=== PATIENT | male | born 1980 | race Caucasian/White ===

== ENCOUNTER 2020-03-01 15:24 | Emergency (ER) | payer SELFPAY ==
[2020-03-01 15:46] VITALS: BP 125/105; PULSE 102; RESP 18; TEMP 36.7; O2SAT 99; BMI 33.4
--- NOTE | 2020-03-01 16:04 | W.ED.ANXIETY ---
Documented by User: ISHAN Pendleton 03/01/20 17:35 HPI - Anxiety General: Chief Complaint: Anxiety Stated Complaint: anxiety Time Seen by Provider: 03/01/20 16:04 Source: patient Mode of arrival: ambulatory Limitations: no limitations History of Present Illness: HPI narrative: Patient comes in today with anxiety. Patient reports he usually takes clonazepam but he has been without it for 2 weeks since moving to the area. Patient appears well. Patient does report a history of coronary artery disease with 2 stents placed 3 years ago. Patient reports no significant chest pain. Patient reports that he had a episode of dizziness and then started shaking and feeling really anxious. Patient states that it is not uncommon for him to get anxious whenever he gets a little upset. Patient right now only takes aspirin and lisinopril with hydrochlorothiazide daily. MD complaint: anxiety Review of Systems General: Reports: 10 or more systems reviewed and unremarkable except in HPI and below Psych: Reports: anxiety [facility] ED PFSH: Social History Smoking and tobacco status: current every day smoker Physical Exam Const: COMMON NORMALS: no acute distress and patient oriented x3 GENERAL APPEARANCE: cooperative HENMT: COMMON NORMALS: normocephalic, TM's normal bilaterally and Normal external nose present HEAD & SCALP: normal to inspection and normocephalic NOSE: Normal external nose present TYMPANIC MEMBRANE: TM's normal bilaterally MOUTH: Normal oral and palatal mucosa present THROAT: posterior oropharynx normal Eye: GENERAL EYE: appearance normal, both eyes and all related structures Neck/C-Spine: COMMON NORMALS: full ROM Lymph: LYMPHATIC: no lymphadenopathy noted Chest: COMMONS NORMALS: normal inspection of the chest Resp: COMMON NORMALS: normal respiratory effort EFFORT & INSPECTION: Yes able to speak in complete sentences Cardio: COMMON NORMALS: regular rate and regular rhythm RATE: regular rate RHYTHM: regular rhythm GI: COMMON NORMALS: non-tender : COMMON NORMALS: Yes no CVA tenderness BLADDER/KIDNEY EXAM: Yes no CVA tenderness Back/Pelvis: COMMON NORMALS: no CVA tenderness and thoracic and lumbar spine normal to inspection Extremity: COMMON NORMALS: normal to inspection Neuro: COMMON NORMALS: patient oriented x3 and moves all extremities Psych: COMMON NORMALS: mental status grossly normal and cooperative Skin: COMMON NORMALS: no rashes or lesions noted GENERAL SKIN EXAM: no rashes or lesions noted Course ED course: 1709, reviewed with Demetrio Raya, physician assistant buyer, he agreed to assume care of patient on my leave. Awaiting labs. Expect patient to be released to home after labs for clearance of electrolyte disturbance or acute intoxication. wjw Vital Signs: Vital signs: Vital Signs Temperature 98.1 F 03/01/20 15:46 Pulse Rate 96 03/01/20 18:45 Respiratory Rate 18 03/01/20 18:45 Blood Pressure 114/60 03/01/20 18:45 Pulse Oximetry 98 03/01/20 18:45 MDM - Anxiety EKG Data^: EKG 1: Attestation: I personally reviewed and interpreted this EKG as follows: (1640, sinus rhythm at a rate of 90 bpm and regular, no ST elevation, no ectopy.) Interpretation: Chest X-Ray 03/01/20 17:45 IMPRESSION: No acute findings. Other EKG comments: Chest X-Ray 03/01/20 17:45 IMPRESSION: No acute findings. Lab Data: Labs: Lab Results 03/01/20 03/01/20 03/01/20 Range/Units 16:45 16:45 16:47 WBC 13.4 H (4.0-10.0) 10^3/ uL RBC 4.79 (4.1-5.3) 10^6/u L Hgb 15.4 (11.7-16.6) g/dL Hct 44.4 (42.0-52.0) % MCV 92.7 (80-94) fL MCH 32.2 (28.0-34.0) pg MCHC 34.7 (30.0-36.0) g/dL RDW 12.5 (12.1-15.1) % Plt Count 309 (130-400) 10^3/c mm MPV 8.1 (7.4-10.4) fL Neut % (Auto) 69.2 % Lymph % (Auto) 21.6 % [facility] % (Auto) 6.5 % Eos % (Auto) 1.3 % Baso % (Auto) 0.4 % Neut # (Auto) 9.3 H (1.8-7.7) 10^3/u L Lymph # (Auto) 2.9 (0.8-4.8) 10^3/u L [facility] # (Auto) 0.9 (0.2-0.9) 10^3/u L Eos # (Auto) 0.2 (0.0-0.8) 10^3/u L Baso # (Auto) 0.1 (0.0-0.1) 10^3/u L Nucleated RBC % (a uto) 0 % Nucleated RBCs # 0.0 /100WBC Sodium (136-145) mmol/L Potassium (3.5-5.1) mmol/L Chloride (98-107) mmol/L Carbon Dioxide (22-29) mmol/L Anion Gap (5-19) BUN (6-20) mg/dL Creatinine (0.7-1.2) mg/dL GFR Calculation (90-130) mL/min Glucose (65-115) mg/dL Calculated Osmolal ity (285-295) mOsm/k g Calcium (8.5-10.5) mg/dL Total Bilirubin (0.15-1.2) mg/dL AST (0-40) U/L ALT (0-41) U/L Alkaline Phosphata se (40-130) IU/L Total Protein (6.6-8.7) g/dL Albumin (3.5-5.2) g/dL Globulin (1.3-4.6) g/dL Urine Color Yellow (Yellow) Urine Appearance Clear (CLEAR) Urine pH 6 (5-7) Ur Specific Gravit y 1.010 (1.005-1.030) Urine Protein Neg (Negative) Urine Glucose (UA) Norm (Normal) Urine Ketones Negative (Negative) Urine Blood Neg (Negative) Urine Nitrate Negative (Negative) Urine Bilirubin Neg (NEGATIVE) Urine Urobilinogen Neg (Negative) mg/dL Ur Leukocyte Devi ase Negative (Negative) Urine Opiates Scre en Negative (Negative) ng/mL Ur Barbiturates Sc reen Negative (Negative) ng/mL Ur Phencyclidine S crn Negative (Negative) ng/mL Ur Amphetamines Sc reen Negative (Negative) ng/mL U Benzodiazepines Scrn Negative (Negative) ng/mL Urine Cocaine Scre en Negative (Negative) ng/mL U Marijuana (THC) Screen Negative (Negative) ng/mL Ethyl Alcohol (0-10) mg/dL 06/05/20 Range/Units 16:47 WBC (4.0-10.0) 10^3/ uL RBC (4.1-5.3) 10^6/u L Hgb (11.7-16.6) g/dL Hct (42.0-52.0) % MCV (80-94) fL MCH (28.0-34.0) pg MCHC (30.0-36.0) g/dL RDW (12.1-15.1) % Plt Count (130-400) 10^3/c mm MPV (7.4-10.4) fL Neut % (Auto) % Lymph % (Auto) % [facility] % (Auto) % Eos % (Auto) % Baso % (Auto) % Neut # (Auto) (1.8-7.7) 10^3/u L Lymph # (Auto) (0.8-4.8) 10^3/u L [facility] # (Auto) (0.2-0.9) 10^3/u L Eos # (Auto) (0.0-0.8) 10^3/u L Baso # (Auto) (0.0-0.1) 10^3/u L Nucleated RBC % (a uto) % Nucleated RBCs # /100WBC Sodium 133 L (136-145) mmol/L Potassium 3.9 (3.5-5.1) mmol/L Chloride 97 L (98-107) mmol/L Carbon Dioxide 20 L (22-29) mmol/L Anion Gap 19.9 H (5-19) BUN 15 (6-20) mg/dL Creatinine 0.9 (0.7-1.2) mg/dL GFR Calculation 93.0 (90-130) mL/min Glucose 102 (65-115) mg/dL Calculated Osmolal ity 272 L (285-295) mOsm/k g Calcium 9.7 (8.5-10.5) mg/dL Total Bilirubin 0.2 (0.15-1.2) mg/dL AST 25 (0-40) U/L ALT 40 (0-41) U/L Alkaline Phosphata se 64 (40-130) IU/L Total Protein 6.9 (6.6-8.7) g/dL Albumin 4.9 (3.5-5.2) g/dL Globulin 2.0 (1.3-4.6) g/dL Urine Color (Yellow) Urine Appearance (CLEAR) Urine pH (5-7) Ur Specific Gravit y (1.005-1.030) Urine Protein (Negative) Urine Glucose (UA) (Normal) Urine Ketones (Negative) Urine Blood (Negative) Urine Nitrate (Negative) Urine Bilirubin (NEGATIVE) Urine Urobilinogen (Negative) mg/dL Ur Leukocyte Devi ase (Negative) Urine Opiates Scre en (Negative) ng/mL Ur Barbiturates Sc reen (Negative) ng/mL Ur Phencyclidine S crn (Negative) ng/mL Ur Amphetamines Sc reen (Negative) ng/mL U Benzodiazepines Scrn (Negative) ng/mL Urine Cocaine Scre en (Negative) ng/mL U Marijuana (THC) Screen (Negative) ng/mL Ethyl Alcohol < 10 (0-10) mg/dL Discharge Plan Discharge Patient Disposition: Home, Self-Care Clinical Impression: Acute anxiety Condition: Stable Prescriptions: No Action lisinopril-hydrochlorothiazide 20-25 mg Tablet 1 tab PO DAILY RF: 0 Aspir-81 81 mg Tablet,Delayed Release (Dr/Ec) 81 mg PO DAILY RF: 0 Discharge Orders: Discharge Order (Routine); Ordered 03/01/20 Ordered By: Demetrio Raya Discharge Diet: Regular Discharge Activity: Resume usual activity Patient Instructions: Anxiety (ED) Activity Restrictions/Additional Instructions: I placed behavioral health referral order with case management. Someone should be calling you in the next several days to set up an appointment with behavioral health clinic. Take prescribed lorazepam as needed for any acute anxiety attacks. Discharge Date/Time: 03/01/20 18:45 Sign Out Sign Out Data: Patient Sign Out occurred on 03/01/20 at 17:39. Patient's care was discussed, and care was transferred from Gumaro Garduno to ADARSH Garcia. Sign Out Comment: awaiting labs, expect to go home if labs normal. wjw Last updated by Gumaro Garduno FNP at 03/01/20 17:34 Coding Level of Care Code ED Silk Examiner for Chg Fwd Exam Comprehensive Documented by User: ADARSH Garcia 03/01/20 19:52 HPI - Anxiety General: Chief Complaint: Anxiety Stated Complaint: anxiety Time Seen by Provider: 03/01/20 16:04 PFS ED PFSH: Social History Smoking and tobacco status: current every day smoker Course Vital Signs: Vital signs: Vital Signs Temperature 98.1 F 03/01/20 15:46 Pulse Rate 96 03/01/20 18:45 Respiratory Rate 18 03/01/20 18:45 Blood Pressure 114/60 03/01/20 18:45 Pulse Oximetry 98 03/01/20 18:45 MDM - Anxiety MDM Narrative: Medical decision making narrative: Patient is a 40-year-old male who comes into the ED with acute anxiety. Patient says that he recently moved here from [place] and has not established any care with a PCP or behavioral health doctor. Patient states that he was taking Clozapine but has run out of meds. I placed an order with case management for patient to be referred to behavioral health clinic. Patient is in no signs of respiratory distress and does not complain of any chest pain. Physical exam was normal. White blood cell count of 13, alcohol was negative EKG showed normal sinus rhythm with no ST segment elevation or depression. Chest x-ray showed no acute findings. Patient was discharged and given a prescription for lorazepam to treat his anxiety. I told patient that behavioral health clinic should be contacting him in the next several days to set up an appointment to establish care. Patient understood and agreed with plan. Imaging Data^: CXR: Attestation: I personally reviewed and interpreted this imaging study as follows: Radiologist's impression: [address] [address] XRay Report Signed Patient: Rudy Crawford Unit #: [id number] : 1980 Age/Sex: 40 / M ADM Date: 03/01/20 Loc: ER Room/Bed: Attending Dr: Ordering Provider/Ordering MD: Demetrio Raya Date of Service: 03/01/20 Procedure(s): XR chest 1V portable [id number] Accession Number(s): [id number] Report Number: [id number] PROCEDURE INFORMATION: Exam: XR Chest, 1 View Exam date and time: 03/01/2020 6:18 PM Age: 40 years old Clinical indication: Other: Anxiety TECHNIQUE: Imaging protocol: XR of the chest Views: 1 view. COMPARISON: No relevant prior studies available. FINDINGS: Lungs: Unremarkable. No consolidation. Pleural space: Unremarkable. No pleural effusion. No pneumothorax. Heart/Mediastinum: Unremarkable. No cardiomegaly. Bones/joints: No acute abnormality. XR/XR chest 1V portable [id number] IMPRESSION: No acute findings. Dictated By: Maricel Chan Signed By: Maricel Chan Signed Date/Time: 03/01/201824 DD/ 23 EKG Data^: EKG 1: Interpretation: Chest X-Ray 03/01/20 17:45 IMPRESSION: No acute findings. Other EKG comments: Chest X-Ray 03/01/20 17:45 IMPRESSION: No acute findings. Lab Data: Attestation: I reviewed the patient's lab results. Labs: Lab Results 03/01/20 03/01/20 03/01/20 Range/Units 16:45 16:45 16:47 WBC 13.4 H (4.0-10.0) 10^3/ uL RBC 4.79 (4.1-5.3) 10^6/u L Hgb 15.4 (11.7-16.6) g/dL Hct 44.4 (42.0-52.0) % MCV 92.7 (80-94) fL MCH 32.2 (28.0-34.0) pg MCHC 34.7 (30.0-36.0) g/dL RDW 12.5 (12.1-15.1) % Plt Count 309 (130-400) 10^3/c mm MPV 8.1 (7.4-10.4) fL Neut % (Auto) 69.2 % Lymph % (Auto) 21.6 % [facility] % (Auto) 6.5 % Eos % (Auto) 1.3 % Baso % (Auto) 0.4 % Neut # (Auto) 9.3 H (1.8-7.7) 10^3/u L Lymph # (Auto) 2.9 (0.8-4.8) 10^3/u L [facility] # (Auto) 0.9 (0.2-0.9) 10^3/u L Eos # (Auto) 0.2 (0.0-0.8) 10^3/u L Baso # (Auto) 0.1 (0.0-0.1) 10^3/u L Nucleated RBC % (a uto) 0 % Nucleated RBCs # 0.0 /100WBC Sodium (136-145) mmol/L Potassium (3.5-5.1) mmol/L Chloride (98-107) mmol/L Carbon Dioxide (22-29) mmol/L Anion Gap (5-19) BUN (6-20) mg/dL Creatinine (0.7-1.2) mg/dL GFR Calculation (90-130) mL/min Glucose (65-115) mg/dL Calculated Osmolal ity (285-295) mOsm/k g Calcium (8.5-10.5) mg/dL Total Bilirubin (0.15-1.2) mg/dL AST (0-40) U/L ALT (0-41) U/L Alkaline Phosphata se (40-130) IU/L Total Protein (6.6-8.7) g/dL Albumin (3.5-5.2) g/dL Globulin (1.3-4.6) g/dL Urine Color Yellow (Yellow) Urine Appearance Clear (CLEAR) Urine pH 6 (5-7) Ur Specific Gravit y 1.010 (1.005-1.030) Urine Protein Neg (Negative) Urine Glucose (UA) Norm (Normal) Urine Ketones Negative (Negative) Urine Blood Neg (Negative) Urine Nitrate Negative (Negative) Urine Bilirubin Neg (NEGATIVE) Urine Urobilinogen Neg (Negative) mg/dL Ur Leukocyte Devi ase Negative (Negative) Urine Opiates Scre en Negative (Negative) ng/mL Ur Barbiturates Sc reen Negative (Negative) ng/mL Ur Phencyclidine S crn Negative (Negative) ng/mL Ur Amphetamines Sc reen Negative (Negative) ng/mL U Benzodiazepines Scrn Negative (Negative) ng/mL Urine Cocaine Scre en Negative (Negative) ng/mL U Marijuana (THC) Screen Negative (Negative) ng/mL Ethyl Alcohol (0-10) mg/dL 03/01/20 Range/Units 16:47 WBC (4.0-10.0) 10^3/ uL RBC (4.1-5.3) 10^6/u L Hgb (11.7-16.6) g/dL Hct (42.0-52.0) % MCV (80-94) fL MCH (28.0-34.0) pg MCHC (30.0-36.0) g/dL RDW (12.1-15.1) % Plt Count (130-400) 10^3/c mm MPV (7.4-10.4) fL Neut % (Auto) % Lymph % (Auto) % [facility] % (Auto) % Eos % (Auto) % Baso % (Auto) % Neut # (Auto) (1.8-7.7) 10^3/u L Lymph # (Auto) (0.8-4.8) 10^3/u L [facility] # (Auto) (0.2-0.9) 10^3/u L Eos # (Auto) (0.0-0.8) 10^3/u L Baso # (Auto) (0.0-0.1) 10^3/u L Nucleated RBC % (a uto) % Nucleated RBCs # /100WBC Sodium 133 L (136-145) mmol/L Potassium 3.9 (3.5-5.1) mmol/L Chloride 97 L (98-107) mmol/L Carbon Dioxide 20 L (22-29) mmol/L Anion Gap 19.9 H (5-19) BUN 15 (6-20) mg/dL Creatinine 0.9 (0.7-1.2) mg/dL GFR Calculation 93.0 (90-130) mL/min Glucose 102 (65-115) mg/dL Calculated Osmolal ity 272 L (285-295) mOsm/k g Calcium 9.7 (8.5-10.5) mg/dL Total Bilirubin 0.2 (0.15-1.2) mg/dL AST 25 (0-40) U/L ALT 40 (0-41) U/L Alkaline Phosphata se 64 (40-130) IU/L Total Protein 6.9 (6.6-8.7) g/dL Albumin 4.9 (3.5-5.2) g/dL Globulin 2.0 (1.3-4.6) g/dL Urine Color (Yellow) Urine Appearance (CLEAR) Urine pH (5-7) Ur Specific Gravit y (1.005-1.030) Urine Protein (Negative) Urine Glucose (UA) (Normal) Urine Ketones (Negative) Urine Blood (Negative) Urine Nitrate (Negative) Urine Bilirubin (NEGATIVE) Urine Urobilinogen (Negative) mg/dL Ur Leukocyte Devi ase (Negative) Urine Opiates Scre en (Negative) ng/mL Ur Barbiturates Sc reen (Negative) ng/mL Ur Phencyclidine S crn (Negative) ng/mL Ur Amphetamines Sc reen (Negative) ng/mL U Benzodiazepines Scrn (Negative) ng/mL Urine Cocaine Scre en (Negative) ng/mL U Marijuana (THC) Screen (Negative) ng/mL Ethyl Alcohol < 10 (0-10) mg/dL Discharge Plan Discharge Patient Disposition: Home, Self-Care Clinical Impression: Acute anxiety Condition: Stable Prescriptions: No Action lisinopril-hydrochlorothiazide 20-25 mg Tablet 1 tab PO DAILY RF: 0 Aspir-81 81 mg Tablet,Delayed Release (Dr/Ec) 81 mg PO DAILY RF: 0 Discharge Orders: Discharge Order (Routine); Ordered 03/01/20 Ordered By: Demetrio Raya Discharge Diet: Regular Discharge Activity: Resume usual activity Patient Instructions: Anxiety (ED) Activity Restrictions/Additional Instructions: I placed behavioral health referral order with case management. Someone should be calling you in the next several days to set up an appointment with behavioral health clinic. Take prescribed lorazepam as needed for any acute anxiety attacks. Discharge Date/Time: 03/01/20 18:45 Sign Out Sign Out Data: Patient Sign Out occurred on 03/01/20 at 17:39. Patient's care was discussed, and care was transferred from Gumaro Garduno to ADARSH Garcia. Sign Out Comment: awaiting labs, expect to go home if labs normal. wjw Last updated by Gumaro Garduno FNP at 03/01/20 17:34 Coding Level of Care Code ED Silk Examiner for g Fwd Exam Comprehensive
--- NOTE | 2020-03-01 16:10 | ECG_ITS ---
Measurements Intervals [place] Rate: 90 P: 37 WI: 153 QRS: 45 QRSD: 129 T: 55 QT: 382 QTc: 469 SINUS RHYTHM POSSIBLE RIGHT VENTRICULAR CONDUCTION DELAY [RSR (QR) IN V1/V2] No previous ECG available for comparison Electronically Signed On 03-02-2020 8:05:33 CDT by Shannan Mendoza M.D. [id number]
[2020-03-01 16:13] VITALS: O2SAT 98
[2020-03-01] MEDS: LORazepam 1 mg Tablet 0.5 MG PO (16:34)
[2020-03-01 16:36] VITALS: BP 146/89; PULSE 108; O2SAT 97
[2020-03-01 16:56] LABS: Basophils # 0.1 10^3/uL (0.0-0.1); Basophils % 0.4 %; Eosinophils # 0.2 10^3/uL (0.0-0.8); Eosinophils % 1.3 %; Hematocrit 44.4 % (42.0-52.0); Hemoglobin 15.4 g/dL (11.7-16.6); Lymphocytes # 2.9 10^3/uL (0.8-4.8); Lymphocytes % 21.6 %; Mean Corpuscular HGB Conc 34.7 g/dL (30.0-36.0); Mean Corpuscular Hemoglobin 32.2 pg (28.0-34.0); Mean Corpuscular Volume 92.7 fL (80-94); Mean Platelet Volume 8.1 fL (7.4-10.4); Monocytes # 0.9 10^3/uL (0.2-0.9); Monocytes % 6.5 %; Neutrophils # 9.3 10^3/uL (1.8-7.7); Neutrophils % 69.2 %; Nucleated Red Blood Cells % 0 %; Platelet Count 309 10^3/cmm (130-400); Red Blood Count 4.79 10^6/uL (4.1-5.3); Red Cell Distribution Width 12.5 % (12.1-15.1); White Blood Count 13.4 10^3/uL (4.0-10.0)
[2020-03-01 17:16] LABS: Add Urine Microscopic? NO
[2020-03-01 17:18] LABS: Urine Appearance Clear (CLEAR); Urine Color Yellow (Yellow)
[2020-03-01 17:19] LABS: Bilirubin Urine Neg (NEGATIVE); Blood Urine Neg (Negative); Glucose Urine UA Norm (Normal); Ketones Urine Negative (Negative); Leukocyte Esterase Urine Negative (Negative); Nitrate Urine Negative (Negative); Protein Urine Neg (Negative); Urobilinogen Urine Neg (Negative); pH Urine 6 (5-7)
[2020-03-01 17:28] LABS: Amphetamines Screen Urine Negative (Negative); Barbiturates Screen Urine Negative (Negative); Benzodiazepines Screen Urine Negative (Negative); Cocaine Screen Urine Negative (Negative); Opiate Screen Urine Negative (Negative); PCP Screen Urine Negative (Negative); THC Screen Urine Negative (Negative)
--- NOTE | 2020-03-01 17:40 | ED_ITS ---
HPI - Anxiety General: Chief Complaint: Anxiety Stated Complaint: anxiety Time Seen by Provider: 03/01/20 16:04 Source: patient Mode of arrival: ambulatory History of Present Illness: HPI narrative: Per Ulices Garduno Nurse Practitioner-- Patient comes in today with anxiety. Patient reports he usually takes clonazepam but he has been without it for 2 weeks since moving to the area. Patient appears well. Patient does report a history of coronary artery disease with 2 stents placed 3 years ago. Patient reports no significant chest pain. Patient reports that he had a episode of dizziness and then started shaking and feeling really anxious. Patient states that it is not uncommon for him to get anxious whenever he gets a little upset. Patient right now only takes aspirin and lisinopril with hydrochlorothiazide daily. MD complaint: anxiety Associated symptoms: Deny chest pain, chills, fever(s), headache(s), nausea, palpitations or vomiting Review of Systems Const: Denies: fever(s), chills or fatigue Eyes: Denies: change in vision or eye discomfort ENMT: Denies: throat pain, odynophagia, nasal discharge or nasal congestion Card: Denies: chest pain, palpitations, edema, swelling of feet/ankles, dyspnea on exertion or orthopnea Resp: Denies: dyspnea, productive cough or non-productive cough GI: Denies: abdominal pain, nausea, vomiting, diarrhea, constipation or hematochezia : Denies: flank pain, difficulty urinating, dysuria or hematuria Musc: Denies: neck pain, back pain or extremity swelling Skin/Breast: Denies: rash or new lesions Neuro: Denies: headache(s), numbness in extremities or weakness in extremities Psych: Reports: anxiety PFSH ED PFSH: Social History Smoking and tobacco status: current every day smoker Physical Exam Const: COMMON NORMALS: patient oriented x3 HENMT: COMMON NORMALS: normocephalic HEAD & SCALP: normocephalic MOUTH: Normal oral and palatal mucosa present THROAT: posterior oropharynx normal and uvula midline Neck/C-Spine: COMMON NORMALS: supple GENERAL: Yes normal visual inspection Resp: COMMON NORMALS: normal respiratory effort, No retractions, No use of accessory muscles and clear to auscultation bilaterally AUSCULTATION: clear to auscultation bilaterally Cardio: COMMON NORMALS: regular rate, regular rhythm, S1 normal heart sound present, S2 normal heart sound present, No gallops present (Cardio), No clicks present (Cardio), No murmurs present (Cardio) and Peripheral pulses 2+ throughout RATE: regular rate RHYTHM: regular rhythm HEART SOUNDS: S1 normal heart sound present and S2 normal heart sound present PERIPHERAL PULSES: Peripheral pulses 2+ throughout GI: COMMON NORMALS: Normal to inspection, nondistended, normoactive bowel sounds present, Soft to palpation, non-tender and no masses PALPATION: Yes Soft to palpation : COMMON NORMALS: Yes no CVA tenderness BLADDER/KIDNEY EXAM: Yes no CVA tenderness Back/Pelvis: COMMON NORMALS: no CVA tenderness Neuro: COMMON NORMALS: patient oriented x3 and moves all extremities Course Vital Signs: Vital signs: Vital Signs Temperature 98.1 F 03/01/20 15:46 Pulse Rate 108 H 03/01/20 16:36 Respiratory Rate 18 03/01/20 15:46 Blood Pressure 146/89 03/01/20 16:36 Pulse Oximetry 97 03/01/20 16:36 MDM - Anxiety Lab Data: Attestation: I reviewed the patient's lab results. Labs: Lab Results 03/01/20 03/01/20 03/01/20 Range/Units 16:45 16:45 16:47 WBC 13.4 H (4.0-10.0) 10^3/ uL RBC 4.79 (4.1-5.3) 10^6/u L Hgb 15.4 (11.7-16.6) g/dL Hct 44.4 (42.0-52.0) % MCV 92.7 (80-94) fL MCH 32.2 (28.0-34.0) pg MCHC 34.7 (30.0-36.0) g/dL RDW 12.5 (12.1-15.1) % Plt Count 309 (130-400) 10^3/c mm MPV 8.1 (7.4-10.4) fL Neut % (Auto) 69.2 % Lymph % (Auto) 21.6 % [place] % (Auto) 6.5 % Eos % (Auto) 1.3 % Baso % (Auto) 0.4 % Neut # (Auto) 9.3 H (1.8-7.7) 10^3/u L Lymph # (Auto) 2.9 (0.8-4.8) 10^3/u L [place] # (Auto) 0.9 (0.2-0.9) 10^3/u L Eos # (Auto) 0.2 (0.0-0.8) 10^3/u L Baso # (Auto) 0.1 (0.0-0.1) 10^3/u L Nucleated RBC % (a uto) 0 % Nucleated RBCs # 0.0 /100WBC Urine Color Yellow (Yellow) Urine Appearance Clear (CLEAR) Urine pH 6 (5-7) Ur Specific Gravit y 1.010 (1.005-1.030) Urine Protein Neg (Negative) Urine Glucose (UA) Norm (Normal) Urine Ketones Negative (Negative) Urine Blood Neg (Negative) Urine Nitrate Negative (Negative) Urine Bilirubin Neg (NEGATIVE) Urine Urobilinogen Neg (Negative) mg/dL Ur Leukocyte Devi ase Negative (Negative) Urine Opiates Scre en Negative (Negative) ng/mL Ur Barbiturates Sc reen Negative (Negative) ng/mL Ur Phencyclidine S crn Negative (Negative) ng/mL Ur Amphetamines Sc reen Negative (Negative) ng/mL U Benzodiazepines Scrn Negative (Negative) ng/mL Urine Cocaine Scre en Negative (Negative) ng/mL U Marijuana (THC) Screen Negative (Negative) ng/mL Discharge Plan Discharge Prescriptions: No Action lisinopril-hydrochlorothiazide 20-25 mg Tablet 1 tab PO DAILY RF: 0 Aspir-81 81 mg Tablet,Delayed Release (Dr/Ec) 81 mg PO DAILY RF: 0 Sign Out Sign Out Data: Patient Sign Out occurred on 03/01/20 at 17:39. Patient's care was discussed, and care was transferred from Gumaro Garduno to ADARSH Garcia. Sign Out Comment: awaiting labs, expect to go home if labs normal. wjw Last updated by Gumaro Garduno FNP at 03/01/20 17:34 Coding Level of Care Code ED Projects Manager for Adam Adair
--- NOTE | 2020-03-01 17:45 | XRR_ITS ---
PROCEDURE INFORMATION: Exam: XR Chest, 1 View Exam date and time: 03/01/2020 6:18 PM Age: 40 years old Clinical indication: Other: Anxiety TECHNIQUE: Imaging protocol: XR of the chest Views: 1 view. COMPARISON: No relevant prior studies available. FINDINGS: Lungs: Unremarkable. No consolidation. Pleural space: Unremarkable. No pleural effusion. No pneumothorax. Heart/Mediastinum: Unremarkable. No cardiomegaly. Bones/joints: No acute abnormality. XR/XR chest 1V portable [id number] IMPRESSION: No acute findings.
[2020-03-01 18:34] LABS: Alanine Aminotransferase 40 U/L (0-41); Albumin Level 4.9 g/dL (3.5-5.2); Alkaline Phosphatase 64 IU/L (40-130); Anion Gap 19.9 (5-19); Aspartate Amino Transferase 25 U/L (0-40); Blood Urea Nitrogen 15 mg/dL (6-20); Calcium 9.7 mg/dL (8.5-10.5); Carbon Dioxide 20 mmol/L (22-29); Chloride 97 mmol/L (98-107); Glucose 102 mg/dL (65-115); Osmolality Calculated 272 mOsm/kg (285-295); Potassium 3.9 mmol/L (3.5-5.1); Sodium 133 mmol/L (136-145); Total Bilirubin 0.2 mg/dL (0.15-1.2); Total Protein 6.9 g/dL (6.6-8.7)
[2020-03-01 18:38] VITALS: BP 114/60; PULSE 99; O2SAT 98
[2020-03-01 18:45] VITALS: BP 114/60; PULSE 96; RESP 18; O2SAT 98
[2020-03-01 18:59] LABS: Alcohol Level < 10 mg/dL (0-10)
--- NOTE | 2020-03-04 11:12 | DCPLANNER ---
email campaign manager had message to speak with patient about a referral to [facility]. email campaign manager called patient at phone number [phone], unable to speak with patient at this time due to phone having calling restrictions. email campaign manager was unable to speak with patient or leave a voice mail for patient.
== END 2020-03-01 18:45 | disposition home or self-care (01) ==
PROVIDERS: Nurse Practitioner Family; Emergency Provider Physician Assistant
DX: F41.9 Anxiety disorder, unspecified (principal); Z79.82 Long term (current) use of aspirin; F17.210 Nicotine dependence, cigarettes, uncomplicated
CPT/HCPCS: 12345; 71045; 80053; 80306; 80307; 81003; 85025; 93005; 99283

== ENCOUNTER 2021-09-05 10:07 | Emergency (ER) | payer MEDICAID, SELFPAY ==
[2021-09-05 10:14] VITALS: BP 177/117; PULSE 90; RESP 20; TEMP 36.5; O2SAT 99; BMI 33.4
--- NOTE | 2021-09-05 10:18 | XR_ITS ---
WS: [id number] PORTABLE CHEST HISTORY: CHEST PAIN COMPARISON: 03/01/2020 Lungs are clear and well expanded. No pleural effusion or pneumothorax. Cardiac size: Normal. Mediastinum/Aorta: Normal mediastinum. No osseous abnormality seen. XR/XR chest 1V portable [id number] IMPRESSION: Unremarkable portable chest.
--- NOTE | 2021-09-05 10:18 | ECG_ITS ---
[facility] Test Date: 2021-09-05 Pat Name: Rudy Crawford Department: Room: Gender: Male Bilingual Interpreter: : 1980 Requested By: Florentin Salinas Order Number: [id number] Erika MD: Michael Cabrera M.D. Measurements Intervals [place] Rate: 84 P: 12 AL: 170 QRS: 51 QRSD: 107 T: 60 QT: 391 QTc: 463 Interpretive Statements SINUS RHYTHM Compared to ECG 03/01/2020 16:40:52 No significant changes Electronically Signed On 09-06-2021 7:38:14 CIVIL CLERK by Michael Cabrera M.D. [id number]
[2021-09-05 10:28] LABS: Basophils % 0.6 %; Eosinophils # 0.1 10^3/uL (0.0-0.8); Eosinophils % 1.7 %; Hematocrit 49.8 % (42.0-52.0); Hemoglobin 17.2 g/dL (11.7-16.6); Lymphocytes # 2.4 10^3/uL (0.8-4.8); Lymphocytes % 51.1 %; Mean Corpuscular HGB Conc 34.5 g/dL (30.0-36.0); Mean Corpuscular Hemoglobin 31.7 pg (28.0-34.0); Mean Corpuscular Volume 91.7 fl (80-94); Mean Platelet Volume 8.3 fL (7.4-10.4); Monocytes # 0.6 10^3/uL (0.2-0.9); Monocytes % 11.6 %; Neutrophils # 1.63 10^3/uL (1.8-7.7); Neutrophils % 34.4 %; Nucleated Red Blood Cells % 0 %; Platelet Count 250 10^3/cmm (130-400); Red Blood Count 5.43 10^6/uL (4.1-5.3); Red Cell Distribution Width 12.6 % (12.1-15.1); White Blood Count 4.7 10^3/uL (4.0-10.0)
[2021-09-05 11:02] LABS: Troponin(5th) Baseline 7 ng/L (0-15)
--- NOTE | 2021-09-05 11:13 | ED_ITS ---
HPI - Chest Pain General: Chief Complaint: Chest Pain Stated Complaint: CP Time Seen by Provider: 09/05/21 10:35 History of Present Illness: HPI narrative: 41 yo male presents to the emergency room complaining of left-sided chest pain going into his left shoulder he states he has had this for several weeks. He also related to anxiety previous shoulder injury condition that has been off his blood pressure medicines for the last several weeks to. Is worse when he moves or palpates shoulder can reproduce the pain is not had any associated diaphoresis or nausea. MD complaint: chest pain Pertinent past history: other (L rotator cuff injury) Onset (ago): week(s) Timing of current episode: episodic Onset: during rest Pain radiation: left shoulder Severity: moderate Quality: sharp Relieving factors: rest Exacerbating factors: palpation and movement (L shoulder) Associated symptoms: Reports sense of impending doom; Deny abdominal pain, diaphoresis, dyspnea, fever(s), leg edema, nausea, palpitations, syncope or vomiting Treatment prior to arrival: none Review of Systems Const: Denies: fever(s) or diaphoresis ENMT: Denies: throat pain, ear or mastoid pain, nasal discharge or nasal congestion Card: Denies: palpitations or syncope Resp: Denies: dyspnea GI: Denies: abdominal pain, nausea or vomiting : Denies: flank pain, dysuria, urinary frequency or urinary urgency Skin/Breast: Denies: rash or pruritus PFSH ED PFSH: Social History Smoking and tobacco status: current every day smoker Physical Exam Const: COMMON NORMALS: no acute distress GENERAL APPEARANCE: cooperative and comfortable ORIENTATION/CONSCIOUSNESS: Yes awake, Yes oriented to person, Yes oriented to place and Yes oriented to time HENMT: COMMON NORMALS: normocephalic, atraumatic and hearing grossly normal bilaterally HEAD & SCALP: normocephalic and atraumatic Neck/C-Spine: COMMON NORMALS: no JVD Resp: COMMON NORMALS: normal respiratory effort, No retractions, No use of accessory muscles and clear to auscultation bilaterally AUSCULTATION: clear to auscultation bilaterally Cardio: COMMON NORMALS: no JVD, regular rate, regular rhythm and No murmurs present (Cardio) RATE: regular rate RHYTHM: regular rhythm GI: COMMON NORMALS: Soft to palpation and No hepatosplenomegaly present AUSCULTATION: Yes normoactive bowel sounds PALPATION: Yes Soft to palpation, No Tenderness to palpation present (GI), No Guarding due to palpation present (GI) and Yes No hepatosplenomegaly present Extremity: COMMON NORMALS: normal to inspection, capillary refill normal, no clubbing, cyanosis or edema, no calf tenderness and no pedal edema NARRATIVE EXTREMITY EXAM: Pain reproducible with abduction and extension of the left shoulder even palpation over the AC joint seems to worsen the pain there is no deformity no ecchymosis. Neurovascularly intact in the left upper extremity Neuro: SENSORIUM/ORIENTATION: Yes oriented to person, Yes oriented to place and Yes oriented to time Skin: COMMON NORMALS: no rashes or lesions noted GENERAL SKIN EXAM: no rashes or lesions noted Course Vital Signs: Vital signs: Vital Signs Temperature 97.7 F 09/05/21 10:14 Pulse Rate 91 09/05/21 13:48 Respiratory Rate 16 09/05/21 13:48 Blood Pressure 156/114 09/05/21 13:48 Pulse Oximetry 98 09/05/21 13:48 MDM - Chest Pain MDM Narrative: Medical decision making narrative: Chest pain is definitely atypical seems more related to the shoulder itself. No recent trauma to the shoulder but I do suspect he has some left rotator cuff disorder. Organic start him on hydroxyzine for anxiety and diclofenac encourage him to restart his blood pressure medication. We will also get arrangements for an outpatient MRI stress test and referral to orthopedics and referral to primary care. Lab Data: Labs: Lab Results 09/05/21 09/05/21 09/05/21 10:23 10:23 10:23 WBC 4.7 10^3/uL 10^3/ uL (4.0-10.0) RBC 5.43 10^6/uL H 10 ^6/uL (4.1-5.3) Hgb 17.2 g/dL H g/dL (11.7-16.6) Hct 49.8 % % (42.0-52.0) MCV 91.7 fl fl (80-94) MCH 31.7 pg pg (28.0-34.0) MCHC 34.5 g/dL g/dL (30.0-36.0) RDW 12.6 % % (12.1-15.1) Plt Count 250 10^3/cmm 10^3 /cmm (130-400) MPV 8.3 fL fL (7.4-10.4) Neut % (Auto) 34.4 % % Lymph % (Auto) 51.1 % % [place] % (Auto) 11.6 % % Eos % (Auto) 1.7 % % Baso % (Auto) 0.6 % % Neut # (Auto) 1.63 10^3/uL L 10 ^3/uL (1.8-7.7) Lymph # (Auto) 2.4 10^3/uL 10^3/ uL (0.8-4.8) [place] # (Auto) 0.6 10^3/uL 10^3/ uL (0.2-0.9) Eos # (Auto) 0.1 10^3/uL 10^3/ uL (0.0-0.8) Baso # (Auto) 0.0 10^3/uL 10^3/ uL (0.0-0.1) Nucleated RBC % (a uto) 0 % % Nucleated RBCs # 0.0 /100WBC /100W BC Sodium 136 mmol/L mmol/L (136-145) Potassium 3.8 mmol/L mmol/L (3.5-5.1) Chloride 101 mmol/L mmol/L (98-107) Carbon Dioxide 19 mmol/L L mmol/ L (22-29) Anion Gap 19.8 H (5-19) BUN 12 mg/dL mg/dL (6-20) Creatinine 0.7 mg/dL mg/dL (0.7-1.2) GFR Calculation 123.7 mL/min mL/m in (90-130) Glucose 86 mg/dL mg/dL (65-115) Calculated Osmolal ity 281 mOsm/kg L mOs m/kg (285-295) Calcium 8.7 mg/dL mg/dL (8.5-10.5) Total Bilirubin 0.5 mg/dL mg/dL (0.15-1.2) AST 25 U/L U/L (0-40) ALT 43 U/L H U/L (0-41) Alkaline Phosphata se 67 IU/L IU/L (40-130) Troponin T Baselin e 7 ng/L ng/L (0-15) Troponin T 120 Min [place] Troponin T Total Protein 7.4 g/dL g/dL (6.6-8.7) Albumin 4.5 g/dL g/dL (3.5-5.2) Globulin 2.9 g/dL g/dL (1.3-4.6) 09/05/21 12:40 WBC RBC Hgb Hct MCV MCH MCHC RDW Plt Count MPV Neut % (Auto) Lymph % (Auto) [place] % (Auto) Eos % (Auto) Baso % (Auto) Neut # (Auto) Lymph # (Auto) [place] # (Auto) Eos # (Auto) Baso # (Auto) Nucleated RBC % (a uto) Nucleated RBCs # Sodium Potassium Chloride Carbon Dioxide Anion Gap BUN Creatinine GFR Calculation Glucose Calculated Osmolal ity Calcium Total Bilirubin AST ALT Alkaline Phosphata se Troponin T Baselin e Troponin T 120 Min [place] 7.16 ng/L ng/L (0-15) Delta Troponin T 0.16 ABS# ABS# (0-10) Total Protein Albumin Globulin Discharge Plan Discharge Patient Disposition: Home Clinical Impression: Atypical chest pain, Disorder of left rotator cuff, Anxiety Condition: Stable Prescriptions: New hydroxyzine HCl 25 mg tablet 25 mg PO Q6H PRN (Reason: anxiety) Qty: 14 RF: 0 diclofenac sodium 75 mg tablet,delayed release (DR/EC) 75 mg PO Q12H PRN (Reason: pain) Qty: 20 RF: 0 No Action lisinopril-hydrochlorothiazide 20-25 mg Tablet 1 tab PO DAILY MDD see pharmacy comment RF: 0 aspirin [Aspir-81] 81 mg Tablet,Delayed Release (Dr/Ec) 81 mg PO DAILY MDD see pharmacy comment RF: 0 Discharge Orders: Discharge ED (Routine); Ordered 09/05/21 Ordered By: Anil Senior Discharge Diet: Usual diet Discharge Activity: Limit activity as instructed Patient Instructions: Opioid Safety Activity Restrictions/Additional Instructions: Case management will make arrangments for a stress test, MRI of your shoulder and referal to orthopaedics. THey will also make arranglemtnst for a primary care physician. Coding Level of Care Code ED Aerial Tram Operator for Adam Fwd Exam Comprehensive
[2021-09-05 11:38] LABS: Alanine Aminotransferase 43 U/L (0-41); Albumin Level 4.5 g/dL (3.5-5.2); Alkaline Phosphatase 67 IU/L (40-130); Anion Gap 19.8 (5-19); Aspartate Amino Transferase 25 U/L (0-40); Blood Urea Nitrogen 12 mg/dL (6-20); Calcium 8.7 mg/dL (8.5-10.5); Carbon Dioxide 19 mmol/L (22-29); Chloride 101 mmol/L (98-107); Globulin 2.9 g/dL (1.3-4.6); Glomerular Filtration Rate 123.7 mL/min (90-130); Glucose 86 mg/dL (65-115); Osmolality Calculated 281 mOsm/kg (285-295); Potassium 3.8 mmol/L (3.5-5.1); Sodium 136 mmol/L (136-145); Total Bilirubin 0.5 mg/dL (0.15-1.2); Total Protein 7.4 g/dL (6.6-8.7)
[2021-09-05] MEDS: LORazepam 2 mg Tablet PO (11:57)
[2021-09-05 11:58] VITALS: BP 176/134; PULSE 87; RESP 18; O2SAT 99
[2021-09-05] MEDS: lisinopril 10 mg Tablet 20 MG PO (12:59)
[2021-09-05 13:19] LABS: Troponin 5 2HR 7.16 ng/L (0-15); Troponin 5 2HR Delta 0.16 ABS# (0-10)
[2021-09-05 13:48] VITALS: BP 156/114; PULSE 91; RESP 16; O2SAT 98
--- NOTE | 2021-09-08 12:09 | DCPLANNER ---
copy manager had message to schedule a follow up appointment for patient with ortho. copy manager called the ortho clinic, spoke with Mitra, gave clinic patients information. copy manager was told that patients information would be printed and reviewed. Clinic will call patient with appointment information.
--- NOTE | 2021-09-08 15:11 | DCPLANNER ---
cyber security manager had message to schedule an out patient stress test, and an outpatient MRI and a follow up appointment with ortho after the MRI. cyber security manager called phone number [phone], unable to speak with patient and unable to leave a voicemail for patient due to no voicemail box set up.
--- NOTE | 2021-09-09 05:35 | DCPLANNER ---
Patient has a follow up appointment scheduled for Wednesday, October 06, 2021 at 3:[address] Jim. Clinic will call patient with appointment information.
--- NOTE | 2021-10-14 08:35 | DCPLANNER ---
Patient had a follow up appointment scheduled for 10.06.21 with ortho - patient did not attend appointment.
== END 2021-09-05 13:51 | disposition home or self-care (01) ==
PROVIDERS: Nurse Practitioner Family; Emergency Provider Family Medicine
DX: R07.89 Other chest pain (principal); F41.9 Anxiety disorder, unspecified; M25.9 Joint disorder, unspecified; F17.210 Nicotine dependence, cigarettes, uncomplicated
CPT/HCPCS: 36415; 71045; 80053; 84484; 85025; 93005; 99283

== ENCOUNTER 2021-10-10 13:46 | Emergency (ER) | payer MEDICAID, SELFPAY ==
[2021-10-10 13:48] VITALS: BP 149/87; PULSE 76; RESP 16; TEMP 37.1; O2SAT 99; BMI 36.5
[2021-10-10 13:56] VITALS: BP 149/87; PULSE 76; RESP 16; TEMP 37.1; O2SAT 99
--- NOTE | 2021-10-10 14:28 | ED.C_ITS ---
HPI - Psych General: Chief Complaint: Psychiatric Symptoms Stated Complaint: PSYCH EVAL Time Seen by Provider: 10/10/21 13:49 History of Present Illness: HPI Narrative: 41-year-old male presents to the emergency room via EMS with a chief complaint of overdose. However just talk to him he did not intentionally overdose. Patient reports he has severe anxiety has been taking large quantities of Xanax for years he got off of it for a while and then recently he tells me he was given a prescription for 50, 1 mg tablets. He was taking them he states as prescribed and his roommates thought he had taken too many they called EMS yesterday he was evaluated and was felt to be fine and was not transported. Today he was angry because of something to do with an interaction with his roommate and he took several more Xanax. EMS was called and he was brought here. In the emergency room he denies homicidal or suicidal ideation. He does comment that he threw all of his Xanax await approval point to his roommates. He repeatedly denies any suicidal or homicidal ideation. He states he only came in because he was acquiescing to his roommates demands now he is quite angry about it. He is wanting to go home. Context: significant life stressor Associated symptoms: Deny auditory hallucinations, visual hallucinations, delusions, depression, homicidal ideation, suicidal ideation or racing thoughts Review of Systems Const: Denies: fever(s), chills, body aches, change in appetite, fatigue or malaise ENMT: Denies: throat pain, ear or mastoid pain, nasal discharge or nasal congestion Card: Denies: chest pain, edema, dyspnea on exertion or orthopnea Resp: Denies: dyspnea, productive cough or non-productive cough GI: Denies: abdominal pain, nausea, vomiting, hematemesis, coffee ground emesis, diarrhea, constipation, bloating, hematochezia or melena : Denies: flank pain, dysuria, urinary frequency or urinary urgency Skin/Breast: Denies: rash or pruritus Psych: Denies: depression, visual hallucinations, auditory hallucinations, suicidal ideation or homicidal ideation [facility] ED PFSH: Medical History (Updated 10/21/21 @ 06:51 by Anil Senior DO) Anxiety Depression Social History (Reviewed 09/06/21 @ 07:46 by HAIDER Haines Smoking and tobacco status: current every day smoker Physical Exam Const: COMMON NORMALS: no acute distress GENERAL APPEARANCE: cooperative and comfortable ORIENTATION/CONSCIOUSNESS: Yes awake, Yes oriented to person, Yes oriented to place and Yes oriented to time HENMT: COMMON NORMALS: normocephalic and atraumatic HEAD & SCALP: normocephalic and atraumatic Neck/C-Spine: COMMON NORMALS: no JVD Resp: COMMON NORMALS: normal respiratory effort, No retractions, No use of accessory muscles and clear to auscultation bilaterally AUSCULTATION: clear to auscultation bilaterally Cardio: COMMON NORMALS: no JVD, regular rate, regular rhythm and No murmurs present (Cardio) RATE: regular rate RHYTHM: regular rhythm GI: COMMON NORMALS: Soft to palpation and No hepatosplenomegaly present AUSCULTATION: Yes normoactive bowel sounds PALPATION: Yes Soft to palpation, No Tenderness to palpation present (GI), No Guarding due to palpation present (GI) and Yes No hepatosplenomegaly present Extremity: COMMON NORMALS: normal to inspection, capillary refill normal, no clubbing, cyanosis or edema, no calf tenderness and no pedal edema Neuro: SENSORIUM/ORIENTATION: Yes oriented to person, Yes oriented to place and Yes oriented to time Psych: THOUGHT CONTENT: No delusions Skin: COMMON NORMALS: no rashes or lesions noted GENERAL SKIN EXAM: no rashes or lesions noted Course Vital Signs: Vital signs: Vital Signs Temperature 98.7 F 10/10/21 14:56 Pulse Rate 76 10/10/21 14:57 Respiratory Rate 16 10/10/21 14:56 Blood Pressure 149/87 10/10/21 14:57 Pulse Oximetry 98 10/10/21 14:57 MDM - Psych MDM Narrative Medical decision making narrative: Patient did not intentionally overdose. He denies any suicidal or homicidal ideation.While he is likely not taking the medications appropriately is not doing so with intent to harm himself simply to self medicate. Reviewed with him proper use of medications encouraged to follow-up with his doctor return if he has problems. Discharge Plan Discharge Patient Disposition: Home Clinical Impression: Anxiety Condition: Stable Prescriptions: No Action lisinopril-hydrochlorothiazide 20-25 mg Tablet 1 tab PO DAILY MDD see pharmacy comment 0RF aspirin [Aspir-81] 81 mg Tablet,Delayed Release (Dr/Ec) 81 mg PO DAILY MDD see pharmacy comment 0RF hydroxyzine HCl 25 mg tablet 25 mg PO Q6H PRN (Reason: anxiety) Qty: 14 0RF diclofenac sodium 75 mg tablet,delayed release (DR/EC) 75 mg PO Q12H PRN (Reason: pain) Qty: 20 0RF Discharge Orders: Discharge ED (Routine); Ordered 10/10/21 Ordered By: Anil Senior Discharge Diet: Usual diet Discharge Activity: Resume usual activity Patient Instructions: Anxiety (ED), Opioid Safety Activity Restrictions/Additional Instructions: Follow-up with your primary care doctor within the next week. Return to the ER if you have any further problems. Coding Level of Care Code ED Production Worker for Adam Adair
[2021-10-10 14:56] VITALS: RESP 16; TEMP 37.1
[2021-10-10 14:57] VITALS: BP 149/87; PULSE 76; O2SAT 98
== END 2021-10-10 15:00 | disposition home or self-care (01) ==
PROVIDERS: Emergency Provider Family Medicine
DX: F41.9 Anxiety disorder, unspecified (principal); Z79.82 Long term (current) use of aspirin; F17.210 Nicotine dependence, cigarettes, uncomplicated
CPT/HCPCS: 12345; 99283

== ENCOUNTER 2021-12-16 13:18 | Emergency (ER) | payer MEDICAID, SELFPAY ==
[2021-12-16 13:23] VITALS: BP 146/87; PULSE 115; RESP 18; TEMP 36.6; O2SAT 98; BMI 36.5
[2021-12-16 13:28] VITALS: BP 138/85; PULSE 104; RESP 23; O2SAT 97
--- NOTE | 2021-12-16 13:52 | XRR_ITS ---
PROCEDURE INFORMATION: Exam: XR Chest Exam date and time: 12/16/2021 1:02 PM Age: 41 years old Clinical indication: Cough and dyspnea; Additional info: Dyspnea/cough TECHNIQUE: Imaging protocol: XR of the chest. Views: 1 view. COMPARISON: CR XR chest 1V portable [id number] 09/05/2021 10:27 AM FINDINGS: Lungs: Unremarkable. No consolidation. Pleural spaces: Unremarkable. No pleural effusion. No pneumothorax. Heart/Mediastinum: Unremarkable. No cardiomegaly. Bones/joints: Unremarkable. XR/XR chest 1V portable [id number] IMPRESSION: No acute findings.
--- NOTE | 2021-12-16 13:52 | ECG_ITS ---
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 Measurements Intervals [place] Rate: 99 P: 52 MT: 153 QRS: 65 QRSD: 118 T: 66 QT: 343 QTc: 441 Interpretive Statements SINUS RHYTHM MODERATE INTRAVENTRICULAR CONDUCTION DELAY [110+ ms QRS DURATION] Compared to ECG 09/05/2021 10:12:17 Intraventricular conduction delay now present Electronically Signed On 12-16-2021 16:39:05 CDT by Shannan Mendoza M.D. [id number]
--- NOTE | 2021-12-16 13:56 | W.ED.CHESTPA ---
HPI - Chest Pain General: Chief Complaint: Anxiety Stated Complaint: Chest Pain, shakieness, Anxiousness Time Seen by Provider: 12/16/21 13:29 Source: patient Mode of arrival: ambulatory Limitations: no limitations History of Present Illness: 41-year-old male presents to the emergency room with complaints of anxiety. Patient states he has not been able to take any Xanax because he ran out the last couple of weeks anxiety been getting worse and worse over the last 3 days had intermittent episodes of chest pain he has a known history of coronary artery disease previously did have angiography with stenting about 4 years ago. He did take some nitroglycerin this morning when he had chest pain that began while at rest he had no relief of his chest pain with that is not had any associated shortness of breath diaphoresis or nausea with his episodes of chest pain. He has not recently had any stress testing. MD complaint: chest pain Pertinent past history: coronary artery disease Onset (ago): minute(s) Timing of current episode: episodic Prior episodes: Yes Onset: during rest Pain radiation: none Quality: aching and heaviness Relieving factors: nothing Exacerbating factors: nothing Associated symptoms: Deny abdominal pain, diaphoresis, dyspnea, fever(s), leg edema, nausea, palpitations, sense of impending doom, syncope or vomiting Treatment prior to arrival: none Review of Systems Const: Denies: fever(s) or diaphoresis ENMT: Denies: throat pain, ear or mastoid pain, nasal discharge or nasal congestion Card: Denies: palpitations or syncope Resp: Denies: dyspnea GI: Denies: abdominal pain, nausea or vomiting : Denies: flank pain, dysuria, urinary frequency or urinary urgency Skin/Breast: Denies: rash or pruritus PFSH ED PFSH: Medical History Anxiety Chronic low back pain Cigarette smoker Claudication in peripheral vascular disease Since [place] 2018 with walking 100 yards or less Depression Hx of carotid stenosis Hypertension Presence of stent in coronary artery in patient with coronary artery disease [place] in 2018 with stents x2 Torn rotator cuff Social History Smoking and tobacco status: current every day smoker Alcohol intake: former Marital status: Single Number of children: 0 Current occupational status: employed Physical Exam Const: GENERAL APPEARANCE: cooperative and comfortable ORIENTATION/CONSCIOUSNESS: Yes awake, Yes oriented to person, Yes oriented to place and Yes oriented to time HENMT: COMMON NORMALS: normocephalic, atraumatic and hearing grossly normal bilaterally HEAD & SCALP: normocephalic and atraumatic Neck/C-Spine: COMMON NORMALS: no JVD Resp: COMMON NORMALS: normal respiratory effort, No retractions, No use of accessory muscles and clear to auscultation bilaterally AUSCULTATION: clear to auscultation bilaterally Cardio: COMMON NORMALS: no JVD, regular rate, regular rhythm and No murmurs present (Cardio) RATE: regular rate RHYTHM: regular rhythm GI: COMMON NORMALS: Soft to palpation and No hepatosplenomegaly present AUSCULTATION: Yes normoactive bowel sounds PALPATION: Yes Soft to palpation, No Tenderness to palpation present (GI), No Guarding due to palpation present (GI) and Yes No hepatosplenomegaly present Extremity: COMMON NORMALS: normal to inspection, capillary refill normal, no clubbing, cyanosis or edema, no calf tenderness and no pedal edema Neuro: SENSORIUM/ORIENTATION: Yes oriented to person, Yes oriented to place and Yes oriented to time Skin: COMMON NORMALS: no rashes or lesions noted GENERAL SKIN EXAM: no rashes or lesions noted Course Vital Signs: Vital signs: Vital Signs Temperature 97.8 F 12/16/21 13:58 Pulse Rate 85 12/16/21 17:56 Respiratory Rate 18 12/16/21 17:56 Blood Pressure 128/97 12/16/21 17:56 Pulse Oximetry 96 12/16/21 17:56 MDM - Chest Pain Medical Decision Making Patient's symptoms have improved. EKGs and labs reviewed. No acute ST changes no elevation in troponin we will set him up for referral to [facility] [place] as well as outpatient stress test. Medical Records I reviewed the patient's medical records. Lab Data I reviewed the patient's lab results. : 12/16/21 14:05 12/16/21 14:05 Radiology Impressions Chest X-Ray 12/16/21 13:52 IMPRESSION: No acute findings. Laboratory Results WBC 11.3 10^3/uL (4.0-10.0) H 12/16/21 14:05 RBC 5.56 10^6/uL (4.1-5.3) H 12/16/21 14:05 Hgb 17.6 g/dL (11.7-16.6) H 12/16/21 14:05 Hct 50.9 % (42.0-52.0) 12/16/21 14:05 MCV 91.5 fl (80-94) 12/16/21 14:05 MCH 31.7 pg (28.0-34.0) 12/16/21 14:05 MCHC 34.6 g/dL (30.0-36.0) 12/16/21 14:05 RDW 11.7 % (12.1-15.1) L 12/16/21 14:05 Plt Count 352 10^3/cmm (130-400) 12/16/21 14:05 MPV 8.1 fL (7.4-10.4) 12/16/21 14:05 Neut % (Auto) 57.4 % 12/16/21 14:05 Lymph % (Auto) 31.3 % 12/16/21 14:05 [place] % (Auto) 7.7 % 12/16/21 14:05 Eos % (Auto) 2.3 % 12/16/21 14:05 Baso % (Auto) 0.7 % 12/16/21 14:05 Neut # (Auto) 6.48 10^3/uL (1.8-7.7) 12/16/21 14:05 Lymph # (Auto) 3.5 10^3/uL (0.8-4.8) 12/16/21 14:05 [place] # (Auto) 0.9 10^3/uL (0.2-0.9) 12/16/21 14:05 Eos # (Auto) 0.3 10^3/uL (0.0-0.8) 12/16/21 14:05 Baso # (Auto) 0.1 10^3/uL (0.0-0.1) 12/16/21 14:05 Nucleated RBC % (auto) 0 % 12/16/21 14:05 Nucleated RBCs # 0.0 /100WBC 12/16/21 14:05 Sodium 133 mmol/L (136-145) L 12/16/21 14:05 Potassium 3.8 mmol/L (3.5-5.1) 12/16/21 14:05 Chloride 97 mmol/L (98-107) L 12/16/21 14:05 Carbon Dioxide 20 mmol/L (22-29) L 12/16/21 14:05 Anion Gap 19.8 (5-19) H 12/16/21 14:05 BUN 12 mg/dL (6-20) 12/16/21 14:05 Creatinine 0.9 mg/dL (0.7-1.2) 12/16/21 14:05 GFR Calculation 92.5 mL/min (90-130) 12/16/21 14:05 Glucose 121 mg/dL (65-115) H 12/16/21 14:05 Calculated Osmolality 277 mOsm/kg (285-295) L 12/16/21 14:05 Calcium 10.2 mg/dL (8.5-10.5) 12/16/21 14:05 Total Bilirubin 0.3 mg/dL (0.15-1.2) 12/16/21 14:05 AST 21 U/L (0-40) 12/16/21 14:05 ALT 37 U/L (0-41) 12/16/21 14:05 Alkaline Phosphatase 86 IU/L (40-130) 12/16/21 14:05 Troponin T Baseline 7 ng/L (0-15) 12/16/21 14:05 Troponin T 120 Minute 6.00 ng/L (0-15) 12/16/21 16:40 Delta Troponin T -1 ABS# (0-10) L 12/16/21 16:40 Total Protein 7.4 g/dL (6.6-8.7) 12/16/21 14:05 Albumin 4.9 g/dL (3.5-5.2) 12/16/21 14:05 Globulin 2.5 g/dL (1.3-4.6) 12/16/21 14:05 Discharge Plan Discharge Patient Disposition: Home Clinical Impression: Acute anxiety, Depression Condition: Stable Prescriptions: No Action acetaminophen [Tylenol Extra Strength] 500 mg tablet 500 mg PO Q6H PRN0RF tramadol 50 mg tablet 50 mg PO BID PRN (Reason: pain) 30 Days Qty: 60 2RF Rx Instructions: 340 B meds clonazepam 1 mg tablet 1 mg PO BID 30 Days Qty: 60 0RF lisinopril-hydrochlorothiazide 20-25 mg tablet 1 tab PO DAILY Qty: 90 1RF Aspir-81 81 mg Tablet,Delayed Release (Dr/Ec) 81 mg PO QAM 0RF Nitrostat 0.4 mg Tablet, Sublingual 0.4 mg SUBLINGUAL Q5M PRN (Reason: Chest Pain) 0RF Rx Instructions: do not exceed 3 doses per episode Discharge Orders: Discharge ED (Routine); Ordered 12/16/21 Ordered By: Anil Senior Referrals: Nilesh Hutchinson MD [Physician] - 12/18/21 9:00 am Discharge Diet: Usual diet Discharge Activity: Resume usual activity Patient Instructions: Opioid Safety Activity Restrictions/Additional Instructions: Case management make arrangements for you to follow-up at behavioral health clinic. We will also set up a Lexiscan sestamibi stress test for you. Coding Level of Care Code ED Embroiderer Hand for Adam Fwd Exam Comprehensive
[2021-12-16 13:58] VITALS: BP 138/85; PULSE 104; RESP 23; TEMP 36.6; O2SAT 97
[2021-12-16] MEDS: LORazepam 2 mg Tablet PO (14:02)
[2021-12-16 14:20] LABS: Basophils # 0.1 10^3/uL (0.0-0.1); Basophils % 0.7 %; Eosinophils # 0.3 10^3/uL (0.0-0.8); Eosinophils % 2.3 %; Hematocrit 50.9 % (42.0-52.0); Hemoglobin 17.6 g/dL (11.7-16.6); Lymphocytes # 3.5 10^3/uL (0.8-4.8); Lymphocytes % 31.3 %; Mean Corpuscular HGB Conc 34.6 g/dL (30.0-36.0); Mean Corpuscular Hemoglobin 31.7 pg (28.0-34.0); Mean Corpuscular Volume 91.5 fl (80-94); Mean Platelet Volume 8.1 fL (7.4-10.4); Monocytes # 0.9 10^3/uL (0.2-0.9); Monocytes % 7.7 %; Neutrophils # 6.48 10^3/uL (1.8-7.7); Neutrophils % 57.4 %; Nucleated Red Blood Cells % 0 %; Platelet Count 352 10^3/cmm (130-400); Red Blood Count 5.56 10^6/uL (4.1-5.3); Red Cell Distribution Width 11.7 % (12.1-15.1); White Blood Count 11.3 10^3/uL (4.0-10.0)
--- NOTE | 2021-12-16 14:31 | DCPLANNER ---
Addendum entered by Abida Denis 10/07/22 12:32: Patient had an outpatient stress test - patient did not attend appointment Addendum entered by Abida Denis 09/29/22 11:14: Patient has a stress test scheduled for Thursday, October 06, 2022 at 6:45. Centralized scheduling will call patient with appointment information. Addendum entered by Abida Denis 01/02/22 07:54: Patient had a follow up appointment scheduled for 12.18.[address] Hutchinson at [facility] to establish care - patient did attend appointment. Addendum entered by Abida Denis 12/17/21 10:51: manager office had message to schedule an outpatient stress test for patient. manager office faxed signed order for stress test to centralized scheduling, who will call patient with appointment information. Original Note: manager office had message to speak to patient about services at [facility]. manager office informed patient that he would need to fill out the initial paperwork for [facility] and turn it in. Then [facility] will call him and schedule an initial assessment. manager office gave patient the initial paperwork to fill out and turn in. manager office was asked to get patient established with a primary care physician. manager office called [facility], spoke with Ceci, gave clinic patients information. A follow up appointment was scheduled for November at 9:[address] Hutchinson. manager office informed patient of the appointment information. Patient does not have insurance at this time, watch case polisher gave patient both of the patient financial specialist applications for the hospital to fill out and turn in.
[2021-12-16 14:50] LABS: Troponin(5th) Baseline 7 ng/L (0-15)
[2021-12-16 14:52] LABS: Alanine Aminotransferase 37 U/L (0-41); Albumin Level 4.9 g/dL (3.5-5.2); Alkaline Phosphatase 86 IU/L (40-130); Aspartate Amino Transferase 21 U/L (0-40); Blood Urea Nitrogen 12 mg/dL (6-20); Calcium 10.2 mg/dL (8.5-10.5); Carbon Dioxide 20 mmol/L (22-29); Chloride 97 mmol/L (98-107); Globulin 2.5 g/dL (1.3-4.6); Glomerular Filtration Rate 92.5 mL/min (90-130); Glucose 121 mg/dL (65-115); Osmolality Calculated 277 mOsm/kg (285-295); Sodium 133 mmol/L (136-145); Total Bilirubin 0.3 mg/dL (0.15-1.2); Total Protein 7.4 g/dL (6.6-8.7)
[2021-12-16 14:59] LABS: Anion Gap 19.8 (5-19); Potassium 3.8 mmol/L (3.5-5.1)
[2021-12-16 15:26] VITALS: BP 110/73; PULSE 93; RESP 19; O2SAT 93
--- NOTE | 2021-12-16 15:52 | ECG_ITS ---
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 Measurements Intervals [place] Rate: 110 P: 43 MS: 157 QRS: 73 QRSD: 110 T: 65 QT: 333 QTc: 451 Interpretive Statements SINUS TACHYCARDIA Compared to ECG 09/05/2021 10:12:17 Sinus rhythm no longer present Electronically Signed On 12-16-2021 16:44:43 CDT by Shannan Mendoza M.D. [id number]
[2021-12-16 16:00] VITALS: BP 105/90; PULSE 86; RESP 20; O2SAT 96
[2021-12-16 17:36] LABS: Troponin 5 2HR Delta -1 ABS# (0-10)
[2021-12-16 17:56] VITALS: BP 128/97; PULSE 85; RESP 18; O2SAT 96
--- NOTE | 2021-12-16 19:52 | ECG_ITS ---
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 Measurements Intervals [place] Rate: 86 P: 35 [place]: 175 QRS: 62 QRSD: 121 T: 55 QT: 362 QTc: 433 Interpretive Statements SINUS RHYTHM MODERATE INTRAVENTRICULAR CONDUCTION DELAY [110+ ms QRS DURATION] Compared to ECG 12/16/2021 13:59:44 No significant changes Electronically Signed On 12-16-2021 16:45:01 CDT by Shannan Mendoza M.D. [id number]
== END 2021-12-16 18:03 | disposition home or self-care (01) ==
PROVIDERS: Emergency Provider Family Medicine
DX: F41.9 Anxiety disorder, unspecified (principal); F32.A Depression, unspecified; R07.9 Chest pain, unspecified; F17.210 Nicotine dependence, cigarettes, uncomplicated; Z79.82 Long term (current) use of aspirin
CPT/HCPCS: 71045; 80053; 84484; 85025; 93005; 99283

== ENCOUNTER 2022-01-21 19:22 | Emergency (ER) | payer MEDICAID, SELFPAY ==
[2022-01-21 19:26] VITALS: BP 111/70; PULSE 114; RESP 18; TEMP 36.6; O2SAT 98; BMI 36.5
--- NOTE | 2022-01-21 19:31 | ED_ITS ---
HPI - Extremity Problem General: Chief complaint: Extremity Injury, Lower Stated complaint: Left Food Injury Time Seen by Provider: 01/21/22 19:31 History of Present Illness: 42-year-old male patient comes in today for injury to the left foot. Patient states that he was stepping off a ramp with a heavy object and injured his left foot. Patient states he does not know if he twisted or just stepped wrong on the foot but has had increased pain and discomfort for the last 2 hours after the injury. Patient does have some mild swelling to the MTP joint of the first digit of the left foot. Patient reports pain radiates up into the tibia. Denies any previous injury to the foot. Associated symptoms: Deny chest pain, fever(s) or rash Review of Systems General: Reports: 10 or more systems reviewed and unremarkable except in HPI and below Const: Denies: fever(s) Card: Denies: chest pain Resp: Denies: dyspnea GI: Denies: nausea or vomiting Musc: Denies: neck pain Skin/Breast: Denies: rash PFSH ED PFSH: Medical History (Updated 01/21/22 @ 20:27 by ISHAN Pendleton) Anxiety Chronic low back pain Cigarette smoker Claudication in peripheral vascular disease Since [place] 2018 with walking 100 yards or less Dental caries associated with enamel hypomineralization Depression Hx of carotid stenosis Hypertension Presence of stent in coronary artery in patient with coronary artery disease [place] in 2018 with stents x2 Torn rotator cuff Social History Smoking and tobacco status: current every day smoker Alcohol intake: former Marital status: Single Number of children: 0 Current occupational status: employed Physical Exam Const: COMMON NORMALS: alert HENMT: COMMON NORMALS: normocephalic HEAD & SCALP: normocephalic THROAT: posterior oropharynx normal Neck/C-Spine: COMMON NORMALS: full ROM Resp: COMMON NORMALS: normal respiratory effort Cardio: RATE: tachycardic GI: COMMON NORMALS: Soft to palpation PALPATION: Yes Soft to palpation Extremity: LEFT LOWER EXTREMITY: Yes lower leg (No obvious abnormality, tenderness) Left lower leg: Yes inspection and Yes palpation and Yes foot & digits (Tenderness to the first digit with some mild swelling and redness) Left foot and digits: Yes inspection, Yes palpation and Yes ROM Neuro: SENSORIUM/ORIENTATION: Yes alert Skin: COMMON NORMALS: no rashes or lesions noted GENERAL SKIN EXAM: no rashes or lesions noted Course Vital Signs: Vital signs: Vital Signs Temperature 97.8 F 01/21/22 19:26 Pulse Rate 114 H 01/21/22 20:04 Respiratory Rate 18 01/21/22 20:04 Blood Pressure 111/70 01/21/22 20:04 Pulse Oximetry 98 01/21/22 20:04 MDM - Extremity (Nontraumatic) Medical Decision Making 42-year-old male patient comes in for injury to the left foot today. On exam no obvious deformity is noted to the lower extremity of the left side. Patient does have some tenderness in the MTP joint of the first digit. Pulses are intact. No significant swelling or abnormality is otherwise noted. Differenti al diagnosis includes not limited to gout, fracture, sprain. X-ray noted no obvious abnormality of the foot or tib-fib. Suspect patient probably has a sprain. Patient was recommended to use crutches and José Miguel wrap until he can walk comfortably on the foot. Recommend follow-up with primary care or orthopedist for further evaluation. Patient reported understanding agreed to plan. Discharge Plan Discharge Patient Disposition: Home Clinical Impression: Sprain of foot, left Qualifiers: Encounter type: initial encounter Qualified Code(s): S93.602A - Unspecified sprain of left foot, initial encounter Condition: Stable Prescriptions: New hydrocodone-acetaminophen 5-325 mg tablet 1 tab PO Q8H PRN (Reason: pain) Qty: 7 0RF Discontinued tramadol 50 mg tablet 50 mg PO BID PRN (Reason: pain) 30 Days Qty: 60 2RF Rx Instructions: 340 B meds No Action acetaminophen [Tylenol Extra Strength] 500 mg tablet 500 mg PO Q6H PRN0RF clonazepam 1 mg tablet 1 mg PO BID 30 Days Qty: 60 1RF hydroxyzine HCl 50 mg tablet 50 mg PO TID PRN (Reason: anxiety) Qty: 90 3RF amoxicillin 875 mg tablet 875 mg PO BID Qty: 30 0RF lisinopril-hydrochlorothiazide 20-25 mg tablet 1 tab PO DAILY Qty: 90 1RF Aspir-81 81 mg Tablet,Delayed Release (Dr/Ec) 81 mg PO QAM 0RF Nitrostat 0.4 mg Tablet, Sublingual 0.4 mg SUBLINGUAL Q5M PRN (Reason: Chest Pain) 0RF Rx Instructions: do not exceed 3 doses per episode Discharge Orders: Discharge ED (Routine); Ordered 01/21/22 Ordered By: Gumaro Garduno Discharge Diet: Usual diet Discharge Activity: Increase activity as tolerated Patient Instructions: Foot Sprain (ED), Opioid Safety Activity Restrictions/Additional Instructions: Activity as tolerated. Wear good supportive shoe, use crutches until he can bear weight comfortably, follow-up with primary care in 2 to 3 days for recheck. Return to ER for new concerns. Coding Level of Care Code ED Bariatric Physician for Dorothyg Fwd Exam Comprehensive
--- NOTE | 2022-01-21 19:36 | XRR_ITS ---
PROCEDURE INFORMATION: Exam: XR Left Tibia and Fibula Exam date and time: 01/21/2022 7:49 PM Age: 42 years old Clinical indication: Pain; Lower leg; Left; Additional info: Injury, fell off of ramp TECHNIQUE: Imaging protocol: XR Left tibia and fibula. Views: 2 views. COMPARISON: No relevant prior studies available. FINDINGS: Bones/joints: Normal. Soft tissues: Normal. XR/XR tibia fibula LT 2V [id number] IMPRESSION: No acute findings.
--- NOTE | 2022-01-21 19:36 | XRR_ITS ---
PROCEDURE INFORMATION: Exam: XR Left Foot Exam date and time: 01/21/2022 7:49 PM Age: 42 years old Clinical indication: Pain; Foot; Left; Additional info: Injury TECHNIQUE: Imaging protocol: XR Left foot. Views: 3 or more views. COMPARISON: No relevant prior studies available. FINDINGS: Bones/joints: Normal. Soft tissues: Normal. XR/XR foot LT min 3V* [id number] IMPRESSION: No acute findings.
[2022-01-21 20:04] VITALS: BP 111/70; PULSE 114; RESP 18; O2SAT 98
[2022-01-21] MEDS: HYDROcodone-acetaminophen 5-325 mg Tablet 1 TAB PO (20:11)
== END 2022-01-21 20:57 | disposition home or self-care (01) ==
PROVIDERS: Emergency Provider Nurse Practitioner Family
DX: S93.602A Unspecified sprain of left foot, initial encounter (principal); X58.XXXA Exposure to other specified factors, initial encounter; F17.210 Nicotine dependence, cigarettes, uncomplicated; Z79.82 Long term (current) use of aspirin
CPT/HCPCS: 73590; 73630; 99283; E0114

== ENCOUNTER 2022-01-23 14:33 | Emergency (ER) | payer MEDICAID, SELFPAY ==
[2022-01-23 14:40] VITALS: BP 123/79; PULSE 122; RESP 20; TEMP 36.5; O2SAT 97; BMI 37.5
[2022-01-23 14:56] VITALS: BP 128/87; PULSE 118; RESP 16; O2SAT 94
--- NOTE | 2022-01-23 14:59 | W.ED.ANXIETY ---
HPI - Anxiety General: Chief Complaint: Anxiety Stated Complaint: Says he needs adjustment on pills Time Seen by Provider: 01/23/22 14:46 History of Present Illness: Patient presents here for anxiety treatment. Patient staying at homeless assisted. He was told that he needs to be seen because he is taking too many of his Klonopin for his anxiety. He says he takes them every 2-3 hours. He is not on any treatment for prevention of Chepe , patient also was given prescription for hydrocodone for her foot pain here the other day- took all 7 pills in 1 day. Associated symptoms: Deny chest pain, chills, fever(s), headache(s), nausea or vomiting Review of Systems Const: Denies: fever(s), chills or body aches Eyes: Denies: eye discomfort ENMT: Denies: throat pain Card: Denies: chest pain Resp: Denies: dyspnea GI: Denies: abdominal pain, nausea or vomiting Skin/Breast: Denies: rash Neuro: Denies: headache(s) Psych: Reports: anxiety (Patient's had anxiety for years. He takes clonazepam hydroxyzine and Benad) and other (Denies addiction to medications); Denies: depression, suicidal ideation or homicidal ideation [facility] ED PFSH: Medical History (Updated 01/23/22 @ 14:59 by ISHAN Ba) Anxiety Chronic low back pain Cigarette smoker Claudication in peripheral vascular disease Since 2017 with walking 100 yards or less Dental caries associated with enamel hypomineralization Depression Hx of carotid stenosis Hypertension Presence of stent in coronary artery in patient with coronary artery disease [place] in 2018 with stents x2 Torn rotator cuff Social History Smoking and tobacco status: current every day smoker Alcohol intake: former Marital status: Single Number of children: 0 Current occupational status: employed Physical Exam Const: COMMON NORMALS: no acute distress Cardio: RATE: tachycardic Psych: MOOD & AFFECT: Yes anxious (Speaks very quickly) INSIGHT: Good insight present (Psych) JUDGEMENT: Good judgement present (Psych) Course Vital Signs: Vital signs: Vital Signs Temperature 97.7 F 01/23/22 14:40 Pulse Rate 118 H 01/23/22 14:56 Respiratory Rate 16 04/29/22 14:56 Blood Pressure 128/87 04/29/22 14:56 Pulse Oximetry 94 01/23/22 14:56 MDM - Anxiety Medical Decision Making Patient here for 1 and assessment and his medications for anxiety. Patient staying at homeless assisted patient says he takes his Klonopin every couple hours to help control his anxiety. He is never been treated for the cause of anxiety per his oral history. Patient said he took all 7 hydrocodone other day got any did then 1 day for his foot pain x-rays are negative for any concerning findings. Patient has no swelling to the foot. I encouraged patient follow-up Behavioral Health Care consult was put in and to take medication as prescribed he said this medicine try triFluzone that I prescribed for him what his sister takes and it works wonders for her. Discharge Plan Discharge Patient Disposition: Home Clinical Impression: Chronic anxiety, Benzodiazepine abuse Condition: Stable Prescriptions: New trifluoperazine 2 mg tablet 2 mg PO BID Qty: 30 0RF No Action acetaminophen [Tylenol Extra Strength] 500 mg tablet 500 mg PO Q6H PRN0RF clonazepam 1 mg tablet 1 mg PO BID 30 Days Qty: 60 1RF hydroxyzine HCl 50 mg tablet 50 mg PO TID PRN (Reason: anxiety) Qty: 90 3RF amoxicillin 875 mg tablet 875 mg PO BID Qty: 30 0RF lisinopril-hydrochlorothiazide 20-25 mg tablet 1 tab PO DAILY Qty: 90 1RF Aspir-81 81 mg Tablet,Delayed Release (Dr/Ec) 81 mg PO QAM 0RF Nitrostat 0.4 mg Tablet, Sublingual 0.4 mg SUBLINGUAL Q5M PRN (Reason: Chest Pain) 0RF Rx Instructions: do not exceed 3 doses per episode hydrocodone-acetaminophen 5-325 mg tablet 1 tab PO Q8H PRN (Reason: pain) Qty: 7 0RF Discharge Orders: Discharge ED (Routine); Ordered 01/23/22 Ordered By: Florentin Salinas Discharge Diet: Usual diet Discharge Activity: Increase activity as tolerated Patient Instructions: Generalized Anxiety Disorder (ED) Activity Restrictions/Additional Instructions: You need to follow-up behavioral health care here in town. You should be able go back to the assisted and stay. No need for hospitalization here. Take new medication as directed only use it twice a day and discuss medication and past history with Behavioral Health Care when he have an appointment. Referral was made. Coding Level of Care Code ED Immigration Case Worker for Adam Adair
[2022-01-23 15:05] VITALS: BP 128/72; PULSE 117; RESP 16; O2SAT 95
--- NOTE | 2022-01-27 15:57 | DCPLANNER ---
auditing manager had message to speak with patient about getting services at [facility]. auditing manager spoke with patient, case checker informed patient that he would need to go to [facility] and fill out the initial paperwork and he could do that anytime between 7:30 - 3:00 Wednesday thru Wednesday. He would need to fill out the initial paper work fill that out and turn in. Patient would then complete a initial assessment then would able to have services at [facility] once the paperwork and initial assessment is completed.
== END 2022-01-23 15:06 | disposition home or self-care (01) ==
PROVIDERS: Emergency Provider Nurse Practitioner Family
DX: F41.9 Anxiety disorder, unspecified (principal); F13.10 Sedative, hypnotic or anxiolytic abuse, uncomplicated; F17.200 Nicotine dependence, unspecified, uncomplicated; M79.673 Pain in unspecified foot; Z79.891 Long term (current) use of opiate analgesic; Z79.899 Other long term (current) drug therapy; Z59.01 Sheltered homelessness
CPT/HCPCS: 99281

== ENCOUNTER 2022-06-20 19:03 | Emergency (ER) | payer BC, MEDICAID, SELFPAY ==
[2022-06-20] VITALS (12 sets, daily range): BP systolic 148–180; BP diastolic 93–122; PULSE 78–93; RESP 15–20; TEMP 36.8; O2SAT 94–97; BMI 37.5
--- NOTE | 2022-06-20 20:00 | ECG_ITS ---
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
--- NOTE | 2022-06-20 20:03 | XRR_ITS ---
PROCEDURE INFORMATION: Exam: XR Chest Exam date and time: 06/20/2022 8:23 PM Age: 42 years old Clinical indication: Chest wall pain; Additional info: Cp TECHNIQUE: Imaging protocol: Radiologic exam of the chest. Views: 1 view. COMPARISON: CR XR chest 1V portable [id number] 12/16/2021 1:02 PM FINDINGS: Lungs: No consolidation. Pleural spaces: No pleural effusion. No pneumothorax. Heart/Mediastinum: No cardiomegaly. Bones/joints: Unremarkable. XR/XR chest 1V portable [id number] IMPRESSION: 1. No acute abnormality demonstrated. 2. There is no interval change from the prior examination.
--- NOTE | 2022-06-20 20:13 | PC.NURSE ---
assumed care of patient at this time.
[2022-06-20] MEDS: LORazepam 2 mg Tablet PO ×2 (20:20→21:46)
[2022-06-20 20:30] LABS: Basophils # 0.1 10^3/uL (0.0-0.1); Basophils % 0.6 %; Eosinophils # 0.1 10^3/uL (0.0-0.8); Eosinophils % 1.4 %; Hematocrit 45.1 % (42.0-52.0); Lymphocytes # 2.9 10^3/uL (0.8-4.8); Lymphocytes % 36.6 %; Mean Corpuscular HGB Conc 35.5 g/dL (30.0-36.0); Mean Corpuscular Hemoglobin 32.5 pg (28.0-34.0); Mean Corpuscular Volume 91.7 fl (80-94); Mean Platelet Volume 8.3 fL (7.4-10.4); Monocytes # 0.7 10^3/uL (0.2-0.9); Monocytes % 9.2 %; Neutrophils # 4.02 10^3/uL (1.8-7.7); Neutrophils % 51.2 %; Nucleated Red Blood Cells % 0 %; Platelet Count 262 10^3/cmm (130-400); Red Blood Count 4.92 10^6/uL (4.1-5.3); White Blood Count 7.9 10^3/uL (4.0-10.0)
--- NOTE | 2022-06-20 20:37 | W.ED.CHESTPA ---
HPI - Chest Pain General: Chief Complaint: Chest Pain Stated Complaint: anxiety Time Seen by Provider: 06/20/22 20:03 Source: patient Mode of arrival: ambulatory Limitations: no limitations History of Present Illness: 42-year-old male who states he been having severe anxiety and chest pain over the last 5 to 6 days denies any shortness of breath states pain is been sharp pain in the center of his chest with some radiation to his arm rates pain a 4 out of 10 currently peers extremely anxious he states he is ran out of his blood pressure med along with his Suboxone. Associated symptoms: Deny abdominal pain, dyspnea, fever(s), nausea or vomiting Review of Systems Const: Denies: fever(s), chills, body aches or change in appetite Eyes: Denies: blurry vision or eye discomfort ENMT: Denies: throat pain or dental pain Card: Reports: chest pain Resp: Denies: dyspnea GI: Denies: abdominal pain, nausea, vomiting or diarrhea : Denies: dysuria Musc: Denies: neck pain or back pain Skin/Breast: Denies: rash Neuro: Denies: headache(s) Psych: Reports: anxiety Conor/Lymph: Denies: easy bruising All/Imm: Denies: urticaria PFSH ED PFSH: Medical History Anxiety Chronic low back pain Cigarette smoker Claudication in peripheral vascular disease Since [place] 2017 with walking 100 yards or less Dental caries associated with enamel hypomineralization Depression Hx of carotid stenosis Hypertension Presence of stent in coronary artery in patient with coronary artery disease [place] in 2018 with stents x2 Torn rotator cuff Social History Smoking and tobacco status: current every day smoker Alcohol intake: former Marital status: Single Number of children: 0 Current occupational status: employed Physical Exam Const: COMMON NORMALS: no acute distress, patient oriented x3 and healthy appearing GENERAL APPEARANCE: anxious HENMT: COMMON NORMALS: normocephalic and atraumatic HEAD & SCALP: normocephalic and atraumatic Eye: COMMON NORMALS: Equal, round and reactive pupils present and EOMs intact bilaterally PUPIL: Yes Equal, round and reactive pupils present Neck/C-Spine: COMMON NORMALS: full ROM and supple Chest: COMMONS NORMALS: normal inspection of the chest and normal palpation of entire chest wall Resp: COMMON NORMALS: normal respiratory effort, No retractions, No use of accessory muscles and clear to auscultation bilaterally AUSCULTATION: clear to auscultation bilaterally Cardio: COMMON NORMALS: regular rate, regular rhythm and No murmurs present (Cardio) RATE: regular rate RHYTHM: regular rhythm GI: COMMON NORMALS: Normal to inspection, nondistended, normoactive bowel sounds present, Soft to palpation, non-tender and no masses PALPATION: Yes Soft to palpation Extremity: COMMON NORMALS: normal to inspection and full ROM Neuro: COMMON NORMALS: patient oriented x3, moves all extremities and no focal motor deficits Psych: COMMON NORMALS: mental status grossly normal, Normal thought process present and cooperative THOUGHT PROCESS: Normal thought process present Skin: COMMON NORMALS: no rashes or lesions noted and no wounds GENERAL SKIN EXAM: no rashes or lesions noted Course Vital Signs: Vital signs: Vital Signs Temperature 98.2 F 06/20/22 19:30 Pulse Rate 81 06/20/22 21:15 Respiratory Rate 16 06/20/22 21:06 Blood Pressure 153/109 06/20/22 21:15 Pulse Oximetry 94 06/20/22 21:06 Oxygen Delivery Me thod 06/20/22 21:00 MDM - Chest Pain Medical Decision Making Patient presents here with chest pains atypical in nature or more likely from anxiety he is well-appearing here we will refill his blood pressure medicine troponins negative he is stable for discharge she is to follow-up PCP and return if worsening. Lab Data : 06/20/22 20:22 06/20/22 21:04 Radiology Impressions Chest X-Ray 06/20/22 20:03 IMPRESSION: 1. No acute abnormality demonstrated. 2. There is no interval change from the prior examination. Laboratory Results WBC 7.9 10^3/uL (4.0-10.0) 06/20/22 20: RBC 4.92 10^6/uL (4.1-5.3) 06/20/22 20:22 Hgb 16.0 g/dL (11.7-16.6) 06/20/22 20:22 Hct 45.1 % (42.0-52.0) 06/20/22 20: MCV 91.7 fl (80-94) 06/20/22 20: MCH 32.5 pg (28.0-34.0) 06/20/22 20: MCHC 35.5 g/dL (30.0-36.0) 06/20/22 20: RDW 13.0 % (12.1-15.1) 06/20/22 20: Plt Count 262 10^3/cmm (130-400) 06/20/22 20: MPV 8.3 fL (7.4-10.4) 06/20/22 20: Neut % (Auto) 51.2 % 06/20/22 20: Lymph % (Auto) 36.6 % 06/20/22 20: [place] % (Auto) 9.2 % 06/20/22: Eos % (Auto) 1.4 % 06/20/22: Baso % (Auto) 0.6 % 06/20/22: Neut # (Auto) 4.02 10^3/uL (1.8-7.7) 06/20/22 20: Lymph # (Auto) 2.9 10^3/uL (0.8-4.8) 06/20/22 20: [place] # (Auto) 0.7 10^3/uL (0.2-0.9) 06/20/22: Eos # (Auto) 0.1 10^3/uL (0.0-0.8) 06/20/22: Baso # (Auto) 0.1 10^3/uL (0.0-0.1) 06/20/22: Nucleated RBC % (auto) 0 % 06/20/22 20: Nucleated RBCs # 0.0 /100WBC 06/20/22 20:22 Sodium 139 mmol/L (136-145) 06/20/22 21:04 Potassium 3.5 mmol/L (3.5-5.1) 06/20/22 21:04 Chloride 105 mmol/L (98-107) 06/20/22 21:04 Carbon Dioxide 22 mmol/L (22-29) 06/20/22 21:04 Anion Gap 15.5 (5-19) 06/20/22 21:04 BUN 20 mg/dL (6-20) 06/20/22 21:04 Creatinine 0.7 mg/dL (0.7-1.2) 06/20/22 21:04 GFR Calculation 123.1 mL/min (90-130) 06/20/22 21:04 Glucose 140 mg/dL (65-115) H 06/20/22 21:04 Calculated Osmolality 293 mOsm/kg (285-295) 06/20/22 21:04 Calcium 9.1 mg/dL (8.5-10.5) 06/20/22 21:04 Total Bilirubin 0.2 mg/dL (0.15-1.2) 06/20/22 21:04 AST 35 U/L (0-40) 06/20/22 21:04 ALT 39 U/L (0-41) 06/20/22 21:04 Alkaline Phosphatase 81 U/L (40-130) 06/20/22 21:04 Troponin T Baseline 6 ng/L (0-15) 06/20/22 21:04 Total Protein 6.8 g/dL (6.6-8.7) 06/20/22 21:04 Albumin 4.2 g/dL (3.5-5.2) 06/20/22 21:04 Globulin 2.6 g/dL (1.3-4.6) 06/20/22 21:04 EKG Data EKG 1: I personally reviewed and interpreted this EKG as follows: EKG interpretation date: 06/20/22 EKG interpretation time: 20:03 Interpretation: nsr hr [address] or t wave abnormalities qrs 124 qtc 412 Discharge Plan Discharge Patient Disposition: Home Clinical Impression: Chest pain, Hypertension Condition: Stable Prescriptions: Continued lisinopril-hydrochlorothiazide 20-25 mg tablet 1 tab PO DAILY Qty: 90 1RF No Action acetaminophen [Tylenol Extra Strength] 500 mg tablet 500 mg PO Q6H PRN clonazepam 1 mg tablet 1 mg PO BID 30 Days Qty: 60 1RF hydroxyzine HCl 50 mg tablet 50 mg PO TID PRN (Reason: anxiety) Qty: 90 3RF amoxicillin 875 mg tablet 875 mg PO BID Qty: 30 0RF Aspir-81 81 mg Tablet,Delayed Release (Dr/Ec) 81 mg PO QAM Nitrostat 0.4 mg Tablet, Sublingual 0.4 mg SUBLINGUAL Q5M PRN (Reason: Chest Pain) Rx Instructions: do not exceed 3 doses per episode hydrocodone-acetaminophen 5-325 mg tablet 1 tab PO Q8H PRN (Reason: pain) Qty: 7 0RF trifluoperazine 2 mg tablet 2 mg PO BID Qty: 30 0RF Discharge Orders: Discharge ED (Routine); Ordered 06/20/22 Ordered By: Laura Marshall Discharge Diet: Advance as tolerated Discharge Activity: Resume usual activity Patient Instructions: Chest Pain (ED) Coding Level of Care Code ED High School Music Director for Adam Fwd Exam Comprehensive
[2022-06-20] MEDS: labetalol 5 mg/mL SDV 20mL 10 MG IVP (20:44)
--- NOTE | 2022-06-20 20:48 | PC.NURSE ---
patient states that anxiety is worsening, educated on PO medications and when to expect effect to start. states that receiving IVP labetolol also makes him nervous, educated on purpose related to htn. patient unable to remain still in bed, speaking rapidly unable to understand, assisted to position of comfort, active listening used.
[2022-06-20 21:27] LABS: Troponin(5th) Baseline 6 ng/L (0-15)
--- NOTE | 2022-06-20 21:46 | PC.NURSE ---
patient assisted to bathroom at this time,
[2022-06-20 21:59] LABS: Alanine Aminotransferase 39 U/L (0-41); Albumin Level 4.2 g/dL (3.5-5.2); Alkaline Phosphatase 81 U/L (40-130); Blood Urea Nitrogen 20 mg/dL (6-20); Calcium 9.1 mg/dL (8.5-10.5); Carbon Dioxide 22 mmol/L (22-29); Chloride 105 mmol/L (98-107); Globulin 2.6 g/dL (1.3-4.6); Glomerular Filtration Rate 123.1 mL/min (90-130); Glucose 140 mg/dL (65-115); Osmolality Calculated 293 mOsm/kg (285-295); Sodium 139 mmol/L (136-145); Total Bilirubin 0.2 mg/dL (0.15-1.2); Total Protein 6.8 g/dL (6.6-8.7)
[2022-06-20 22:00] LABS: Anion Gap 15.5 (5-19); Aspartate Amino Transferase 35 U/L (0-40); Potassium 3.5 mmol/L (3.5-5.1)
== END 2022-06-20 22:41 | disposition home or self-care (01) ==
PROVIDERS: Emergency Provider Emergency Medicine
DX: R07.9 Chest pain, unspecified (principal); I10 Essential (primary) hypertension; F17.200 Nicotine dependence, unspecified, uncomplicated
CPT/HCPCS: 36415; 71045; 80053; 84484; 85025; 93005; 96374; 99285; J3490

== ENCOUNTER 2022-06-21 11:21 | Inpatient (IN) | payer BC, SELFPAY ==
[2022-06-21 11:23] VITALS: BP 182/120; PULSE 89; RESP 16; TEMP 36.6; O2SAT 96; BMI 36.5
--- NOTE | 2022-06-21 11:34 | ED.C_ITS ---
HPI - Psych General: Chief Complaint: Psychiatric Symptoms Stated Complaint: MHE Time Seen by Provider: 06/21/22 11:34 History of Present Illness: Mr. Crawford is a 42-year-old gentleman with history of hypertension, tobaccoism, CAD and more pertinently depression with anxiety presenting to the emergency department due to suicidal ideation and uncontrolled anxiety. He reports last having his medications 5 or 6 months ago that he moved and was unable to refill them. He has been out for about 3 months and has had progressively debilitating anxiety. This morning he felt so anxious that he thought about killing himself and walked to a bridge thinking about jumping. Symptom intensity is severe. Course has been worsening. No other specific changes in health, exacerbating, or alleviating factors identified. Onset (ago): week(s) Duration: getting worse History of same: Yes Context: not taking psychiatric medications Review of Systems General: Reports: 10 or more systems reviewed and unremarkable except in HPI and below PFSH ED PFSH: Medical History Anxiety Chronic low back pain Cigarette smoker Claudication in peripheral vascular disease Since [place] 2018 with walking 100 yards or less Dental caries associated with enamel hypomineralization Depression Hx of carotid stenosis Hypertension Presence of stent in coronary artery in patient with coronary artery disease [place] in 2018 with stents x2 Torn rotator cuff Social History (Updated 07/01/22 @ 13:24 by Aarti Montes De Oca LPN) Smoking and tobacco status: current every day smoker cigarettes Packs smoked per day: 2 Alcohol intake: current Alcohol intake frequency: few times a week Marital status: Single Number of children: 0 Current occupational status: employed Physical Exam Const: COMMON NORMALS: alert GENERAL APPEARANCE: cooperative and well developed HENMT: COMMON NORMALS: normocephalic and atraumatic HEAD & SCALP: normocephalic and atraumatic Eye: COMMON NORMALS: conjunctivae normal CONJUNCTIVA: Yes conjunctivae normal SCLERA: sclerae normal Neck/C-Spine: COMMON NORMALS: supple GENERAL: Yes trachea midline Resp: COMMON NORMALS: clear to auscultation bilaterally EFFORT & INSPECTI ON: Yes able to speak in complete sentences AUSCULTATION: clear to auscultation bilaterally Cardio: COMMON NORMALS: regular rate and regular rhythm RATE: regular rate RHYTHM: regular rhythm GI: COMMON NORMALS: Soft to palpation PALPATION: Yes Soft to palpation and No Tenderness to palpation present (GI) Extremity: GENERAL: Yes normal exam except as noted and No edema Neuro: COMMON NORMALS: moves all extremities SENSORIUM/ORIENTATION: Yes alert and No Orientation impaired Psych: COMMON NORMALS: mental status grossly normal and Normal thought process present ACTIVITY/MOTOR BEHAVIOR: Yes fidgeting and Yes restless MOOD & AFFECT: Yes anxious THOUGHT PROCESS: Normal thought process present Course Vital Signs: Vital signs: Vital Signs Temperature 97.5 F L 06/24/22 06:00 Pulse Rate 74 06/24/22 06:00 Respiratory Rate 22 H 06/24/22 06:00 Blood Pressure 144/90 06/24/22 14:00 Pulse Oximetry 96 06/24/22 06:00 Oxygen Delivery Me thod 06/24/22 06:00 MDM - Psych Medical Decision Making 42-year-old gentleman presenting for debilitating psychiatric symptoms. Laboratory studies reviewed without significant abnormality requiring intervention. Based on ED evaluation at this point there is no obvious condition that would preclude patient from inpatient management of psychiatric concerns. Patient to be admitted to neuropsychiatric unit for further management. Medical Records I reviewed the patient's medical records. Lab Data I reviewed the patient's lab results. : 06/21/22 12:15 06/21/22 12:15 Laboratory Results WBC 7.9 10^3/uL (4.0-10.0) 06/21/22 12:15 RBC 5.15 10^6/uL (4.1-5.3) 06/21/22 12:15 Hgb 15.8 g/dL (11.7-16.6) 06/21/22 12:15 Hct 46.9 % (42.0-52.0) 06/21/22 12:15 MCV 91.1 fl (80-94) 06/21/22 12:15 MCH 30.7 pg (28.0-34.0) 06/21/22 12:15 MCHC 33.7 g/dL (30.0-36.0) D 06/21/22 12:15 RDW 12.8 % (12.1-15.1) 06/21/22 12:15 Plt Count 267 10^3/cmm (130-400) 06/21/22 12:15 MPV 8.4 fL (7.4-10.4) 06/21/22 12:15 Neut % (Auto) 56.9 % 06/21/22 12:15 Lymph % (Auto) 33.6 % 06/21/22 12:15 Winkler % (Auto) 7.2 % 06/21/22 12:15 Eos % (Auto) 0.9 % 06/21/22 12:15 Baso % (Auto) 0.8 % 06/21/22 12:15 Neut # (Auto) 4.51 10^3/uL (1.8-7.7) 06/21/22 12:15 Lymph # (Auto) 2.7 10^3/uL (0.8-4.8) 06/21/22 12:15 Winkler # (Auto) 0.6 10^3/uL (0.2-0.9) 06/21/22 12:15 Eos # (Auto) 0.1 10^3/uL (0.0-0.8) 06/21/22 12:15 Baso # (Auto) 0.1 10^3/uL (0.0-0.1) 06/21/22 12:15 Nucleated RBC % (auto) 0 % 06/21/22 12:15 Nucleated RBCs # 0.0 /100WBC 06/21/22 12:15 Sodium 137 mmol/L (136-145) 06/21/22 12:15 Potassium 3.8 mmol/L (3.5-5.1) 06/21/22 12:15 Chloride 101 mmol/L (98-107) 06/21/22 12:15 Carbon Dioxide 24 mmol/L (22-29) 06/21/22 12:15 Anion Gap 15.8 (5-19) 06/21/22 12:15 BUN 13 mg/dL (6-20) 06/21/22 12:15 Creatinine 0.8 mg/dL (0.7-1.2) 06/21/22 12:15 GFR Calculation 105.5 mL/min (90-130) 06/21/22 12:15 Glucose 149 mg/dL (65-115) H 06/21/22 12:15 Calculated Osmolality 287 mOsm/kg (285-295) 06/21/22 12:15 Calcium 9.6 mg/dL (8.5-10.5) 06/21/22 12:15 Total Bilirubin 0.3 mg/dL (0.15-1.2) 06/21/22 12:15 AST 47 U/L (0-40) H 06/21/22 12:15 ALT 58 U/L (0-41) H 06/21/22 12:15 Alkaline Phosphatase 68 U/L (40-130) 06/21/22 12:15 Total Protein 7.0 g/dL (6.6-8.7) 06/21/22 12:15 Albumin 4.3 g/dL (3.5-5.2) 06/21/22 12:15 Globulin 2.7 g/dL (1.3-4.6) 06/21/22 12:15 TSH 1.07 uIU/mL (0.27-4.20) 06/21/22 12:15 Salicylates < 0.3 mg/dL (3-10) L 06/21/22 12:15 Urine Opiates Screen Positive ng/mL (Negative) H 06/21/22 12:36 Acetaminophen < 5.0 ug/mL (10-30) L 06/21/22 12:15 Ur Barbiturates Screen Negative ng/mL (Negative) 06/21/22 12:36 Ur Phencyclidine Scrn Negative ng/mL (Negative) 06/21/22 12:36 Ur Amphetamines Screen Negative ng/mL (Negative) 06/21/22 12:36 U Benzodiazepines Scrn Positive ng/mL (Negative) H 06/21/22 12:36 Urine Cocaine Screen Negative ng/mL (Negative) 06/21/22 12:36 U Marijuana (THC) Screen Negative ng/mL (Negative) 06/21/22 12:36 Ethyl Alcohol < 10 mg/dL (0-10) 06/21/22 12:15 Discharge Plan Discharge Patient Disposition: Admitted As Inpatient Admit Provider: Gigi Wagner Clinical Impression: Suicidal ideation, Anxiety Condition: Stable Discharge Diet: Advance as tolerated Discharge Activity: Resume usual activity Coding Level of Care Code ED Branch Operations Manager for Adam Fwd Exam Comprehensive
[2022-06-21] MEDS: LORazepam 1 mg Tablet PO (12:11)
[2022-06-21 12:22] LABS: Basophils # 0.1 10^3/uL (0.0-0.1); Basophils % 0.8 %; Eosinophils # 0.1 10^3/uL (0.0-0.8); Eosinophils % 0.9 %; Hematocrit 46.9 % (42.0-52.0); Hemoglobin 15.8 g/dL (11.7-16.6); Lymphocytes # 2.7 10^3/uL (0.8-4.8); Lymphocytes % 33.6 %; Mean Corpuscular HGB Conc 33.7 g/dL (30.0-36.0); Mean Corpuscular Hemoglobin 30.7 pg (28.0-34.0); Mean Corpuscular Volume 91.1 fl (80-94); Mean Platelet Volume 8.4 fL (7.4-10.4); Monocytes # 0.6 10^3/uL (0.2-0.9); Monocytes % 7.2 %; Neutrophils # 4.51 10^3/uL (1.8-7.7); Neutrophils % 56.9 %; Nucleated Red Blood Cells % 0 %; Platelet Count 267 10^3/cmm (130-400); Red Blood Count 5.15 10^6/uL (4.1-5.3); Red Cell Distribution Width 12.8 % (12.1-15.1); White Blood Count 7.9 10^3/uL (4.0-10.0)
[2022-06-21 12:49] LABS: Acetaminophen < 5.0 ug/mL (10-30); Alanine Aminotransferase 58 U/L (0-41); Albumin Level 4.3 g/dL (3.5-5.2); Alcohol Level < 10 mg/dL (0-10); Alkaline Phosphatase 68 U/L (40-130); Anion Gap 15.8 (5-19); Aspartate Amino Transferase 47 U/L (0-40); Blood Urea Nitrogen 13 mg/dL (6-20); Calcium 9.6 mg/dL (8.5-10.5); Carbon Dioxide 24 mmol/L (22-29); Chloride 101 mmol/L (98-107); Globulin 2.7 g/dL (1.3-4.6); Glomerular Filtration Rate 105.5 mL/min (90-130); Glucose 149 mg/dL (65-115); Osmolality Calculated 287 mOsm/kg (285-295); Potassium 3.8 mmol/L (3.5-5.1); Salicylate < 0.3 mg/dL (3-10); Sodium 137 mmol/L (136-145); Thyroid Stimulating Hormone 1.07 uIU/mL (0.27-4.20); Total Bilirubin 0.3 mg/dL (0.15-1.2)
[2022-06-21 13:01] LABS: Amphetamines Screen Urine Negative (Negative); Barbiturates Screen Urine Negative (Negative); Benzodiazepines Screen Urine Positive (Negative); Cocaine Screen Urine Negative (Negative); Opiate Screen Urine Positive (Negative); PCP Screen Urine Negative (Negative); THC Screen Urine Negative (Negative)
[2022-06-21] MEDS: cloNIDine 0.1 mg Tablet PO ×2 (13:23→18:01)
[2022-06-21] MEDS: hydroCHLOROthiazide 25 mg Tablet PO (13:23)
[2022-06-21] MEDS: lisinopril 20 mg Tablet PO (13:23)
[2022-06-21 13:31] VITALS: BP 167/116; PULSE 90; RESP 16; TEMP 36.3; O2SAT 97
[2022-06-21 14:00] VITALS: BP 155/98; O2SAT 81
[2022-06-21] MEDS: hyDROXYzine 25 mg Capsule 50 MG PO (14:21)
[2022-06-21] MEDS: nicotine 21 mg Patch 1 PATCH TRANSDERMA (14:23)
[2022-06-21 18:01] VITALS: BP 155/98
[2022-06-21] MEDS: OLANZapine 5 mg ODT PO (18:42)
[2022-06-21 20:24] VITALS: BP 123/78; PULSE 81; RESP 18; TEMP 36.6; O2SAT 96
[2022-06-22 06:00] VITALS: BP 132/90; PULSE 74; RESP 17; TEMP 36.8; O2SAT 94
[2022-06-22] MEDS: aspirin 81 mg EC Tablet PO (07:52)
[2022-06-22] MEDS: acetaminophen 325 mg Tablet 650 MG PO (07:53)
[2022-06-22] MEDS: lisinopril 20 mg Tablet PO (07:53)
[2022-06-22] MEDS: cloNIDine 0.1 mg Tablet PO ×3 (07:54→21:02)
--- NOTE | 2022-06-22 11:06 | P.NPUHP_ITS ---
Providers/Chief Complaint Admitting Physician: Keny Andrews MD Chief Complaint: suicidal ideation, panic attacks HPI NPU History of Present Illness Rudy Crawford is a 42 year old single white male with a history of panic attacks coronary artery disease and hypertension who reports to the emergency department with suicidal ideation with a plan to jump off of a bridge. He had reported that he had been feeling more depressed and reported uncontrolled anxiety over the past 3 months since he had ran out of his Klonopin 1 mg twice a day. He had reported that he has had chronic panic attacks for many years with unknown triggered panic attacks lasting approximately 40 minutes with associated chest pain shortness of breath numbing and tingling in his fingers and difficulty with breathing. He reports that his panic attacks have led him to the emergency department multiple times with complaints of chest pain. He reports that he had a heart attack a few years ago and he has had these panic attacks since that time. The patient reports being burdened by anxiety over the past few months. He reports that he had been unable to receive his Klonopin in [place], [place] where he had moved. He reports that he had recently moved back to the area and had not been able to see his primary care physician yet to get back on his Klonopin. The patient had reported diminished energy low motivation and depressed mood for the past month. He had endorsed having suicidal thoughts. He denied any psychotic symptoms. He denied any history of manic symptoms. He had reported a long history of chronic worry since his heart attack occurred. Past psychiatric history: Patient has a history of 1 inpatient hospitalization 2 years ago for suicidal ideation at [facility] in [facility]. He had reported no history of psychotherapy but reports a history of having been treated for panic attacks and depression with medication trials on Lexapro and xanax. He also reported a history of having been treated for opioid abuse with a history of having been in methadone clinic for a few years having last used methadone 6 years ago. Medical history: Chronic lower back pain peripheral vascular disease with claudication history of carotid stenosis history of hypertension, HTN Surgical history he has a history of placement of stent in the coronary artery he has a history of repair of a torn rotator cuff Allergies: Toradol Medications: Klonopin 1 mg twice a day aspirin 81 mg in the morning clonidine 0.1 mg twice a day nitroglycerin as needed Drug and alcohol history: He reports having begun use of opiates at the age of [age]. He had reported last use of opiates for treating pain few days ago. He had reported a past history of methadone treatment but reports no substance abuse inpatient or rehabilitation in the past. He had reported a past history of alcohol abuse but reports that he has not been drinking recently. He denies any history of benzodiazepine misuse. Family psychiatric history: alcohol abuse-father Social History: Patient was born and raised in [facility]. He is currently living in [facility]. He has never been and has no children. He was raised by his biological parents and is the youngest of 5. He had graduated high school in 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 He denies any significant history of trauma. He denies any history of legal issues. Meds NPU Home Medications Medication Instructions Recorded Confirmed Last Taken Type aspirin 81 mg tablet,delayed 81 mg PO QAM 12/16/21 06/21/22 06/20/22 History release nitroglycerin 0.4 mg sublingual 0.4 mg sublingual Q5M PRN Chest 12/16/21 06/21/22 12/16/21 10:30 History tablet (Nitrostat) Pain acetaminophen 500 mg tablet 500 mg PO Q6H PRN Pain 12/25/21 06/21/22 Unknown History (Tylenol Extra Strength) clonazepam 1 mg tablet 1 mg PO BID anxiety 30 days #60 01/15/22 06/21/22 06/20/22 Rx tabs lisinopril 20 1 tab PO DAILY blood pressure med 06/20/22 06/21/22 06/20/22 Rx mg-hydrochlorothiazide 25 mg tablet #90 tabs clonidine HCl 0.1 mg tablet 0.1 mg PO BID 06/21/22 06/21/22 Unknown History Allergies Allergy/AdvReac Type Severity Reaction Status Date / Time codeine Allergy ALGY-Hives Verified 01/23/22 14:44 ketorolac [From Toradol] Allergy ALGY-Hives Verified 01/23/22 14:44 PFSH NPU PFSH: Medical History Anxiety Chronic low back pain Cigarette smoker Claudication in peripheral vascular disease Since 2018 with walking 100 yards or less Dental caries associated with enamel hypomineralization Depression Hx of carotid stenosis Hypertension Presence of stent in coronary artery in patient with coronary artery disease [place] in 2018 with stents x2 Torn rotator cuff Social History Smoking and tobacco status: current every day smoker Alcohol intake: former Marital status: Single Number of children: 0 Current occupational status: employed Mental Status Exam MSE Comments: Patient was alert and oriented to person place year day of the week but not date. He was friendly and cooperative on interview and appeared somewhat anxious. There was no evidence of any abnormal involuntary motor movements tics or tremors appreciated. His mood was described as anxious. His affect was mood congruent and anxious and restricted. There was evidence of some psychomotor slowing. He endorsed suicidal ideation but was able to con tract for safety here on the unit. His speech was normal in regards to rate rhythm and prosody. He denied any auditory or visual hallucinations and did not appear to be responding to internal stimuli. There was no evidence of any delusional thinking. His attention span was fair. His recent and remote memory appeared within normal limits. His thought process was linear logical and goal-directed. His insight was poor. His judgment was poor. His impulse control appeared poor as well. He denies agoraphobia currently. Vitals/I&O/Wt Last Vital Signs Temp 98.2 F 06/22/22 06:00 Pulse 74 06/22/22 06:00 Resp 17 06/22/22 06:00 BP 132/90 06/22/22 06:00 Pulse Ox 94 06/22/22 06:00 O2 Del Method 06/22/22 06:00 Weight last 48 hrs Weight 108.862 kg Data NPU : 06/21/22 12:15 06/21/22 12:15 A&P Assessment and plan (1) Major depressive disorder: (2) Panic disorder: Plan Patient is a 42-year-old white male admitted with suicidal ideation worsening depression and daily panic attacks reportedly exacerbated by his first and only heart attack a few years ago leading to multiple emergency room visits. 1.? Continue current medications, will restart lexapro and klonopin. 2.? Encourage individual, group and milieu therapy 3.? Continue q-15 minute check for safety 4.? Recommend sober living treatment at the highest level of care to which the patient is willing to commit. Involuntary Hold Information 96 Hour Hold: 96 Hour Involuntary Admission: No Attestations NPU Medical Necessity Statement*: ? Inpatient hospitalization is medically necessary and the clinically appropriate intervention at this time. We will monitor medications and make changes as indicated. Patient will be in the hospital for over two midnights. Likely length of stay is three to five days. Coding Level of Care Code New Pt Acute Wildlife Ecology Professor for Chg Fwd Patient Type New History Problem Focused Exam Problem Focused Medical Decision Making Straight Forward Diagnoses Major depressive disorder F32.9 Panic disorder F41.0
[2022-06-22] MEDS: nicotine 21 mg Patch 1 PATCH TRANSDERMA (11:23)
[2022-06-22] MEDS: hyDROXYzine 25 mg Capsule 50 MG PO (11:26)
[2022-06-22 14:00] VITALS: BP 130/84; PULSE 79; RESP 17; TEMP 36.4; O2SAT 98
[2022-06-22] MEDS: ibuprofen 600 mg Tablet PO ×2 (14:48→21:03)
[2022-06-22] MEDS: guaiFENesin-dextromethorphan UDC 10 mL PO (14:51)
[2022-06-22] MEDS: CLONazepam 0.5 mg Tablet PO ×2 (14:51→21:03)
[2022-06-22] MEDS: escitalopram 10 mg Tablet 5 MG PO (15:04)
[2022-06-22] MEDS: OLANZapine 5 mg ODT PO (18:45)
[2022-06-22 20:26] VITALS: BP 143/91; PULSE 84; RESP 18; TEMP 36.6; O2SAT 98
[2022-06-22 21:02] VITALS: BP 143/91
[2022-06-22] MEDS: trazodone 50 mg Tablet PO (21:04)
[2022-06-23 06:00] VITALS: BP 137/97; PULSE 69; RESP 18; TEMP 36.8; O2SAT 96
[2022-06-23 08:54] VITALS: BP 137/97
[2022-06-23] MEDS: CLONazepam 0.5 mg Tablet PO ×3 (08:54→20:21)
[2022-06-23] MEDS: cloNIDine 0.1 mg Tablet PO ×3 (08:54→20:19)
[2022-06-23] MEDS: aspirin 81 mg EC Tablet PO (08:54)
[2022-06-23] MEDS: lisinopril 20 mg Tablet PO (08:54)
[2022-06-23] MEDS: escitalopram 10 mg Tablet PO (08:54)
[2022-06-23] MEDS: nicotine 21 mg Patch 1 PATCH TRANSDERMA (08:56)
--- NOTE | 2022-06-23 13:51 | PC.NURSE ---
Pt is denying all aspects of psych except anxiety and minimizing alcohol use. He told this nurse he drinks 3-4 times per week 12-20 shots and sometimes some beer. He states, I'm not an alcoholic but I do like to democrat. Patient reports 05/06 anxiety. BM today. good appetite.
[2022-06-23] MEDS: ibuprofen 600 mg Tablet PO (13:56)
[2022-06-23 14:00] VITALS: BP 149/83; PULSE 78; RESP 18; O2SAT 98
[2022-06-23 15:47] VITALS: BP 149/83
--- NOTE | 2022-06-23 17:44 | W.PM.NPUPNS ---
Subjective NPU Subjective: The patient is a 42-year-old white male admitted with suicidal ideation depression and panic attacks. He had reported some significant reduction in his anxiety with the reinitiation of Klonopin. Patient had reported no desire to continue to use alcohol and reported that he would abstain from alcohol. He denied any feelings of hopelessness or worthlessness. He reported no side effects from his SSRI Lexapro. Patient had reported at times feeling as if his anxiety was out of control. He reported having difficulties with being in crowds. He had reported no recent history of psychotherapy. Mental Status Exam MSE Comments: Patient was alert and oriented x3, He was friendly and cooperative on interview and appeared anxious. There was no evidence of any abnormal involuntary motor movements tics or tremors appreciated. His mood was described as anxious. His affect was mood congruent and anxious. There was evidence of some psychomotor slowing. He endorsed no suicidal ideation and was able to contract for safety here on the unit. His speech was normal in regards to rate rhythm and prosody. He denied any auditory or visual hallucinations and did not appear to be responding to internal stimuli. There was no evidence of any delusional thinking. His attention span was fair. His recent and remote memory appeared within normal limits. His thought process was linear logical and goal-directed. His insight was poor. His judgment was poor. His impulse control appeared poor as well. He denies agoraphobia currently. Vitals/I&O/Wt Last Vital Signs Temp 98.3 F 06/23/22 06:00 Pulse 78 06/23/22 14:00 Resp 18 06/23/22 14:00 BP 149/83 06/23/22 15:47 Pulse Ox 98 06/23/22 14:00 O2 Del Method 06/22/22 06:00 Data NPU : 06/21/22 12:15 06/21/22 12:15 A&P Assessment and plan (1) Major depressive disorder: (2) Panic disorder: Plan Patient is a 42-year-old white male admitted with suicidal ideation worsening depression and daily panic attacks reportedly exacerbated by his first and only heart attack a few years ago leading to multiple emergency room visits. 1.? Continue current medications, increase lexapro 20mg in am, referral for outpatient psychotherapy, continue klonopin to prevent withdrawal. 2.? Encourage individual, group and milieu therapy 3.? Continue q-15 minute check for safety 4.? Recommend sober living treatment at the highest level of care to which the patient is willing to commit. Involuntary Hold Information 96 Hour Hold: 96 Hour Involuntary Admission: No Attestations NPU Medical Necessity Statement*: ? Inpatient hospitalization is medically necessary and the clinically appropriate intervention at this time. We will monitor medications and make changes as indicated. Patient will be in the hospital for over two midnights. Likely length of stay is two to three days. Coding Level of Care Code Established Pt Acute Pediatric Licensed Practical Nurse for Dorothyg Fwjere Patient Type Established History Problem Focused Exam Problem Focused Medical Decision Making Straight Forward Diagnoses Major depressive disorder F32.9 Panic disorder F41.0
[2022-06-23] MEDS: hyDROXYzine 25 mg Capsule 50 MG PO (18:02)
[2022-06-23 20:19] VITALS: BP 135/86
[2022-06-23] MEDS: trazodone 50 mg Tablet PO (20:19)
[2022-06-23 22:00] VITALS: BP 138/86; PULSE 78; RESP 22; TEMP 36.8; O2SAT 95
[2022-06-24] MEDS: hyDROXYzine 25 mg Capsule 50 MG PO (05:59)
[2022-06-24 06:00] VITALS: BP 164/119; PULSE 74; RESP 22; TEMP 36.4; O2SAT 96
[2022-06-24] MEDS: ibuprofen 600 mg Tablet PO (06:03)
[2022-06-24 06:53] VITALS: BP 144/90
[2022-06-24] MEDS: cloNIDine 0.1 mg Tablet PO (08:11)
[2022-06-24] MEDS: CLONazepam 0.5 mg Tablet PO (08:11)
[2022-06-24] MEDS: aspirin 81 mg EC Tablet PO (08:12)
[2022-06-24] MEDS: escitalopram 10 mg Tablet 20 MG PO (08:12)
[2022-06-24] MEDS: lisinopril 20 mg Tablet PO (08:12)
[2022-06-24] MEDS: nicotine 21 mg Patch 1 PATCH TRANSDERMA (08:29)
--- NOTE | 2022-06-24 11:56 | W.PM.NPUDCS ---
Diagnoses at Discharge Discharge Diagnosis (1) Major depressive disorder: Status: Acute (2) Panic disorder: Status: Acute Reason for Visit Reason for Visit: suicidal ideation, panic attacks Brief History: Rudy Crawford is a 42 year old single white male with a history of panic attacks coronary artery disease and hypertension who reports to the emergency department with suicidal ideation with a plan to jump off of a bridge.? He had reported that he had been feeling more depressed and reported uncontrolled anxiety over the past 3 months since he had ran out of his Klonopin 1 mg twice a day.? He had reported that he has had chronic panic attacks for many years with unknown triggered panic attacks lasting approximately 40 minutes with associated chest pain shortness of breath numbing and tingling in his fingers and difficulty with breathing.? He reports that his panic attacks have led him to the emergency department multiple times with complaints of chest pain.? He reports that he had a heart attack a few years ago and he has had these panic attacks since that time.? The patient reports being burdened by anxiety over the past few months.? He reports that he had been unable to receive his Klonopin in [place], [place] where he had moved.? He reports that he had recently moved back to the area and had not been able to see his primary care physician yet to get back on his Klonopin.? The patient had reported diminished energy low motivation and depressed mood for the past month.? He had endorsed having suicidal thoughts.? He denied any psychotic symptoms.? He denied any history of manic symptoms.? He had reported a long history of chronic worry since his heart attack occurred. Past psychiatric history: Patient has a history of 1 inpatient hospitalization 2 years ago for suicidal ideation at [facility] in [facility].? He had reported no history of psychotherapy but reports a history of having been treated for panic attacks and depression with medication trials on Lexapro and xanax.? He also reported a history of having been treated for opioid abuse with a history of having been in methadone clinic for a few years having last used methadone 6 years ago. Medical history: Chronic lower back pain peripheral vascular disease with claudication history of carotid stenosis history of hypertension, HTN Surgical history he has a history of placement of stent in the coronary artery he has a history of repair of a torn rotator cuff Allergies: Toradol Medications: Klonopin 1 mg twice a day aspirin 81 mg in the morning clonidine 0.1 mg twice a day nitroglycerin as needed Drug and alcohol history: He reports having begun use of opiates at the age of [age].? He had reported last use of opiates for treating pain few days ago.? He had reported a past history of methadone treatment but reports no substance abuse inpatient or rehabilitation in the past.? He had reported a past history of alcohol abuse but reports that he has not been drinking recently.? He denies any history of benzodiazepine misuse. Family psychiatric history: alcohol abuse-father Social History: Patient was born and raised in [facility].? He is currently living in [facility].? He has never been and has no children.? He was raised by his biological parents and is the youngest of 5.? 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 He denies any significant history of trauma.? He denies any history of legal issues. Hospital Course Hospital Course During the hospitalization, patient had routine laboratory studies which were within normal limits except for few outliers.? Additionally there was a general medical evaluation which was also within normal limits and revealed no new acute processes. Patient was restarted on his klonopin and he reported that he would not engage in alcohol consumption while taking this medication on discharge. At the time of discharge, lethality was denied and panic attacks diminished in frequency and intensity. ? Mood and anxiety were well managed.? Patient endorsed a plan to avoid all drugs of abuse and follow-up with the aftercare recommendations of the treatment team.? Patient was evaluated and deemed to be absent credible lethality, and had achieved the maximum benefit from an inpatient hospitalization, so was discharged. ? Involuntary Hold Information 96 Hour Hold: 96 Hour Involuntary Admission: No Mental Status Exam MSE Comments: Patient was alert and oriented x3, He was friendly and cooperative on interview and appeared anxious. There was no evidence of any abnormal involuntary motor movements tics or tremors appreciated. His mood was described as anxious. His affect was mood congruent and anxious. There was evidence of some psychomotor slowing. He endorsed no suicidal ideation and was able to contract for safety here on the unit. His speech was normal in regards to rate rhythm and prosody. He denied any auditory or visual hallucinations and did not appear to be responding to internal stimuli. There was no evidence of any delusional thinking. His attention span was fair. His recent and remote memory appeared within normal limits. His thought process was linear logical and goal-directed. His insight was adequate. His judgment was improved. His impulse control appeared better today. He denies agoraphobia currently. Discharge Data Studies Completed and Pending: Laboratory Results WBC 7.9 10^3/uL (4.0- 10.0) 06/21/22 12:15 RBC 5.15 10^6/uL (4.1 -5.3) 06/21/22 12:15 Hgb 15.8 g/dL (11.7-1 6.6) 06/21/22 12:15 Hct 46.9 % (42.0-52.0 ) 06/21/22 12:15 MCV 91.1 fl (80-94) 06/21/22 12:15 MCH 30.7 pg (28.0-34. 0) 06/21/22 12:15 MCHC 33.7 g/dL (30.0-3 6.0) D 06/21/22 12:15 RDW 12.8 % (12.1-15.1 ) 06/21/22 12:15 Plt Count 267 10^3/cmm (130 -400) 06/21/22 12:15 MPV 8.4 fL (7.4-10.4) 06/21/22 12:15 Neut % (Auto) 56.9 % 06/21/22 12:15 Lymph % (Auto) 33.6 % 06/21/22 12:15 [place] % (Auto) 7.2 % 06/21/22 12:15 Eos % (Auto) 0.9 % 06/21/22 12:15 Baso % (Auto) 0.8 % 06/21/22 12:15 Neut # (Auto) 4.51 10^3/uL (1.8 -7.7) 06/21/22 12:15 Lymph # (Auto) 2.7 10^3/uL (0.8- 4.8) 06/21/22 12:15 [place] # (Auto) 0.6 10^3/uL (0.2- 0.9) 06/21/22 12:15 Eos # (Auto) 0.1 10^3/uL (0.0- 0.8) 06/21/22 12:15 Baso # (Auto) 0.1 10^3/uL (0.0- 0.1) 06/21/22 12:15 Nucleated RBC % (a uto) 0 % 06/21/22 12:15 Nucleated RBCs # 0.0 /100WBC 06/21/22 12:15 Sodium 137 mmol/L (136-1 45) 06/21/22 12:15 Potassium 3.8 mmol/L (3.5-5 .1) 06/21/22 12:15 Chloride 101 mmol/L (98-10 7) 06/21/22 12:15 Carbon Dioxide 24 mmol/L (22-29) 06/21/22 12:15 Anion Gap 15.8 (5-19) 06/21/22 12:15 BUN 13 mg/dL (6-20) 06/21/22 12:15 Creatinine 0.8 mg/dL (0.7-1. 2) 06/21/22 12:15 GFR Calculation 105.5 mL/min (90- 130) 06/21/22 12:15 Glucose 149 mg/dL (65-115 ) H 06/21/22 12:15 Calculated Osmolal ity 287 mOsm/kg (285- 295) 06/21/22 12:15 Calcium 9.6 mg/dL (8.5-10 .5) 06/21/22 12:15 Total Bilirubin 0.3 mg/dL (0.15-1 .2) 06/21/22 12:15 AST 47 U/L (0-40) H 06/21/22 12:15 ALT 58 U/L (0-41) H 06/21/22 12:15 Alkaline Phosphata se 68 U/L (40-130) 06/21/22 12:15 Total Protein 7.0 g/dL (6.6-8.7 ) 06/21/22 12:15 Albumin 4.3 g/dL (3.5-5.2 ) 06/21/22 12:15 Globulin 2.7 g/dL (1.3-4.6 ) 06/21/22 12:15 TSH 1.07 uIU/mL (0.27 -4.20) 06/21/22 12:15 Salicylates < 0.3 mg/dL (3-10 ) L 06/21/22 12:15 Urine Opiates Scre en Positive ng/mL (N egative) H 06/21/22 12:36 Acetaminophen < 5.0 ug/mL (10-3 0) L 06/21/22 12:15 Ur Barbiturates Sc reen Negative ng/mL (N egative) 06/21/22 12:36 Ur Phencyclidine S crn Negative ng/mL (N egative) 06/21/22 12:36 Ur Amphetamines Sc reen Negative ng/mL (N egative) 06/21/22 12:36 U Benzodiazepines Scrn Positive ng/mL (N egative) H 06/21/22 12:36 Urine Cocaine Scre en Negative ng/mL (N egative) 06/21/22 12:36 U Marijuana (THC) Screen Negative ng/mL (N egative) 06/21/22 12:36 Ethyl Alcohol < 10 mg/dL (0-10) 06/21/22 12:15 Vitals: Last Vital Signs Temp 97.5 F L 06/24/22 06:00 Pulse 74 06/24/22 06:00 Resp 22 H 06/24/22 06:00 BP 144/90 06/24/22 06:53 Pulse Ox 96 06/24/22 06:00 O2 Del Method 06/24/22 06:00 Discharge Plan Discharge Patient Disposition: Home Condition: Stable Prescriptions: New clonidine HCl 0.1 mg Tablet 0.1 mg PO TID 30 Days Qty: 90 1RF aspirin 81 mg Tablet,Delayed Release (Dr/Ec) 81 mg PO DAILY 30 Days Qty: 30 1RF escitalopram oxalate 20 mg tablet 20 mg PO DAILY 30 Days Qty: 30 1RF Klonopin 0.5 mg tablet 0.5 mg PO TID 15 Days Qty: 45 0RF Continued acetaminophen [Tylenol Extra Strength] 500 mg tablet 500 mg PO Q6H PRN (Reason: Pain) aspirin 81 mg Tablet,Delayed Release (Dr/Ec) 81 mg PO QAM nitroglycerin [Nitrostat] 0.4 mg Tablet, Sublingual 0.4 mg SUBLINGUAL Q5M PRN (Reason: Chest Pain) Rx Instructions: do not exceed 3 doses per episode lisinopril-hydrochlorothiazide 20-25 mg tablet 1 tab PO DAILY 30 Days Qty: 30 1RF Discontinued clonazepam 1 mg tablet 1 mg PO BID 30 Days Qty: 60 1RF clonidine HCl 0.1 mg Tablet 0.1 mg PO BID Discharge Orders: Discharge Order (Routine); Ordered 06/24/22 Ordered By: Keny Andrews Referrals: [facility] [Other] [facility] [Outside] (The application was given to [facility]. Walk in for joao Wednesday thru Wednesday 7:30am to 3pm and let them know your application was sent from [facility].) Nilesh Hutchinson MD [Physician] - 07/03/22 11:30 am Discharge Diet: Advance as tolerated Discharge Activity: Resume usual activity Patient Instructions: Clonidine (By mouth), Clonazepam (By mouth), Aspirin (By mouth), Escitalopram (By mouth), Opioid Safety Discharge Attestations [facility] Time Spent in Discharge Care*: less than 30 min Specific Discharge Activities: Specific discharge activities: educating patient, discussing with high risk case manager/social workers/dc planners and documenting/other paperwork Coding Level of Care Code Established Pt Acute Chg FW DC note Patient Type Established History Problem Focused Exam Problem Focused Medical Decision Making Straight Forward Diagnoses Major depressive disorder F32.9 Panic disorder F41.0
[2022-06-24 14:00] VITALS: BP 144/90
== END 2022-06-24 14:01 | disposition home or self-care (01) | DRG 881 ==
LOC: ER 12:49 → NP 13:15
PROVIDERS: Admitting Provider Psychiatry & Neurology Psychiatry; Emergency Provider Emergency Medicine; Visit Provider Psychiatry & Neurology Psychiatry
DX: F32.9 Major depressive disorder, single episode, unspecified (principal); R45.851 Suicidal ideations; F41.0 Panic disorder [episodic paroxysmal anxiety]; I25.10 Atherosclerotic heart disease of native coronary artery without angina pectoris; Z95.5 Presence of coronary angioplasty implant and graft; I10 Essential (primary) hypertension; F41.9 Anxiety disorder, unspecified; G89.29 Other chronic pain; M54.50 Low back pain, unspecified; I73.9 Peripheral vascular disease, unspecified; Z81.1 Family history of alcohol abuse and dependence; F17.200 Nicotine dependence, unspecified, uncomplicated; Z79.82 Long term (current) use of aspirin
CPT/HCPCS: 80053; 80306; 80307; 84443; 85025; 97150; 97165; 99285

== ENCOUNTER 2022-07-27 09:35 | Emergency (ER) | payer BC, MEDICAID, SELFPAY ==
[2022-07-27 09:55] VITALS: BP 151/104; PULSE 107; RESP 16; TEMP 36.7; O2SAT 98; BMI 35.2
--- NOTE | 2022-07-27 10:00 | ECG_ITS ---
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 Measurements Intervals [place] Rate: 104 P: 23 MT: 151 QRS: 44 QRSD: 110 T: 73 QT: 335 QTc: 442 Interpretive Statements SINUS TACHYCARDIA ABNORMAL RHYTHM ECG Compared to ECG 06/20/2022 20:03:36 Sinus rhythm no longer present Electronically Signed On 07-27-2022 14:54:17 CDT by Ariel Ontiveros M.D. [id number]
--- NOTE | 2022-07-27 10:05 | XRR_ITS ---
PROCEDURE INFORMATION: Exam: XR Chest Exam date and time: 07/27/2022 10:54 AM Age: 42 years old Clinical indication: Pain; Angina pectoris; Additional info: Chest pain TECHNIQUE: Imaging protocol: Radiologic exam of the chest. Views: 1 view. COMPARISON: CR (CHEST, ) 06/20/2022 8:23 PM FINDINGS: Lungs: Unremarkable. No consolidation. Pleural spaces: Unremarkable. No pleural effusion. No pneumothorax. Heart/Mediastinum: Unremarkable. No cardiomegaly. Bones/joints: Unremarkable. XR/XR chest 1V portable [id number] IMPRESSION: No acute findings.
[2022-07-27 10:21] LABS: Basophils # 0.1 10^3/uL (0.0-0.1); Basophils % 0.9 %; Eosinophils # 0.1 10^3/uL (0.0-0.8); Hematocrit 53.2 % (42.0-52.0); Hemoglobin 17.9 g/dL (11.7-16.6); Lymphocytes # 3.5 10^3/uL (0.8-4.8); Lymphocytes % 37.9 %; Mean Corpuscular HGB Conc 33.6 g/dL (30.0-36.0); Mean Corpuscular Hemoglobin 30.8 pg (28.0-34.0); Mean Corpuscular Volume 91.6 fl (80-94); Mean Platelet Volume 8.1 fL (7.4-10.4); Monocytes # 0.8 10^3/uL (0.2-0.9); Monocytes % 8.4 %; Neutrophils # 4.66 10^3/uL (1.8-7.7); Neutrophils % 51.1 %; Nucleated Red Blood Cells % 0 %; Platelet Count 335 10^3/cmm (130-400); Red Blood Count 5.81 10^6/uL (4.1-5.3); Red Cell Distribution Width 12.8 % (12.1-15.1); White Blood Count 9.1 10^3/uL (4.0-10.0)
[2022-07-27 10:43] LABS: Alanine Aminotransferase 60 U/L (0-41); Albumin Level 4.5 g/dL (3.5-5.2); Alkaline Phosphatase 81 U/L (40-130); Anion Gap 16.1 (5-19); Aspartate Amino Transferase 40 U/L (0-40); Blood Urea Nitrogen 12 mg/dL (6-20); Calcium 10.1 mg/dL (8.5-10.5); Carbon Dioxide 24 mmol/L (22-29); Chloride 98 mmol/L (98-107); Globulin 2.8 g/dL (1.3-4.6); Glomerular Filtration Rate 105.5 mL/min (90-130); Glucose 142 mg/dL (65-115); Osmolality Calculated 280 mOsm/kg (285-295); Potassium 4.1 mmol/L (3.5-5.1); Sodium 134 mmol/L (136-145); Total Bilirubin 0.5 mg/dL (0.15-1.2); Total Protein 7.3 g/dL (6.6-8.7)
[2022-07-27 10:44] LABS: Troponin(5th) Baseline 8 ng/L (0-15)
[2022-07-27 12:00] VITALS: BP 149/112; PULSE 98; RESP 17; O2SAT 97
--- NOTE | 2022-07-27 12:17 | PC.NURSE ---
Patient does have anxiety and is restless in the bed at this time
[2022-07-27 12:40] LABS: Troponin 5 2HR 7.18 ng/L (0-15)
--- NOTE | 2022-07-27 12:41 | ECG_ITS ---
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 Measurements Intervals [place] Rate: 93 P: 51 CO: 176 QRS: 50 QRSD: 110 T: 76 QT: 356 QTc: 443 Interpretive Statements SINUS RHYTHM Compared to ECG 07/27/2022 09:52:45 Sinus tachycardia no longer present Electronically Signed On 07-27-2022 14:57:38 CDT by Ariel Ontiveros M.D. [id number]
--- NOTE | 2022-07-27 12:51 | W.ED.CHESTPA ---
HPI - Chest Pain General: Chief Complaint: Chest Pain Stated Complaint: chest pain.body tingling Time Seen by Provider: 07/27/22 10:35 Source: patient Mode of arrival: ambulatory Limitations: no limitations History of Present Illness: 42-year-old male presents emergency room complaining of pain in his chest. States it is worse when he bends over he will get a spasm-like sensation in the center of the chest and just to the left to the last a few seconds and then resolved. It is also a little bit worse with deep inspiration. He has no nausea. There is no radiation of pain into the neck or arms. He has history of coronary disease with 2 previous stents. He has been having this since yesterday. Is very reproducible with bending over. Had some associated diarrhea. With one of the spasms he says he felt like waves of discomfort through his entire body and then resolved none of these lasted for more than just a few seconds. He has noted recent increase in heartburn symptoms as well. MD complaint: chest pain Pertinent past history: coronary artery disease Onset (ago): day(s) Timing of current episode: episodic Prior episodes: Yes Pain location: substernal Pain radiation: none Severity: mild Quality: sharp Relieving factors: nothing Exacerbating factors: other (Bending over) Associated symptoms: Deny abdominal pain, diaphoresis, dyspnea, fever(s), leg edema, nausea, palpitations, sense of impending doom, syncope or vomiting Review of Systems Const: Denies: fever(s) or diaphoresis ENMT: Denies: throat pain, ear or mastoid pain, nasal discharge or nasal congestion Card: Denies: palpitations or syncope Resp: Denies: dyspnea GI: Reports: heartburn; Denies: abdominal pain, nausea, vomiting or hematemesis : Denies: flank pain, difficulty urinating, dysuria, urinary frequency or urinary urgency Skin/Breast: Denies: rash or pruritus PFSH ED PFSH: Medical History Anxiety Chronic low back pain Cigarette smoker Claudication in peripheral vascular disease Since CT 2017 with walking 100 yards or less Dental caries associated with enamel hypomineralization Depression Hx of carotid stenosis Hypertension Presence of stent in coronary artery in patient with coronary artery disease CT in 2018 with stents x2 Torn rotator cuff Social History Smoking and tobacco status: current every day smoker cigarettes Packs smoked per day: 2 Alcohol intake: current Alcohol intake frequency: few times a week Marital status: Single Number of children: 0 Current occupational status: employed Physical Exam Const: COMMON NORMALS: no acute distress GENERAL APPEARANCE: cooperative and comfortable ORIENTATION/CONSCIOUSNESS: Yes awake, Yes oriented to person, Yes oriented to place and Yes oriented to time HENMT: COMMON NORMALS: normocephalic, atraumatic and hearing grossly normal bilaterally HEAD & SCALP: normocephalic and atraumatic Lymph: LYMPHATIC: no lymphadenopathy noted and no lymphedema noted Resp: COMMON NORMALS: normal respiratory effort, No retractions, No use of accessory muscles and clear to auscultation bilaterally AUSCULTATION: clear to auscultation bilaterally Cardio: COMMON NORMALS: regular rate, regular rhythm and No murmurs present (Cardio) RATE: regular rate RHYTHM: regular rhythm GI: COMMON NORMALS: Soft to palpation and No hepatosplenomegaly present AUSCULTATION: Yes normoactive bowel sounds PALPATION: Yes Soft to palpation, No Tenderness to palpation present (GI), No Guarding due to palpation present (GI) and Yes No hepatosplenomegaly present Extremity: COMMON NORMALS: normal to inspection, capillary refill normal, no clubbing, cyanosis or edema, no calf tenderness and no pedal edema Neuro: SENSORIUM/ORIENTATION: Yes oriented to person, Yes oriented to place and Yes oriented to time Skin: COMMON NORMALS: no rashes or lesions noted GENERAL SKIN EXAM: no rashes or lesions noted Course Vital Signs: Vital signs: Vital Signs Temperature 98.2 F 07/27/22 13:09 Pulse Rate 93 07/27/22 13:09 Respiratory Rate 17 07/27/22 13:09 Blood Pressure 149/98 07/27/22 13:09 Pulse Oximetry 98 07/27/22 13:09 Oxygen Delivery Me thod 07/27/22 12:00 MDM - Chest Pain Medical Decision Making Labs and EKG not show anything acute. His description of it sounds more GI in nature we will discharge him home have him start Pepcid if the persist he can add or change to omeprazole I have him follow-up with his primary care doctor reviewing his chart I do not see that he had any stress testing since his reported angiogram in 2019 Medical Records I reviewed the patient's medical records. Lab Data I reviewed the patient's lab results. : 07/27/22 10:10 07/27/22 10:10 Radiology Impressions Chest X-Ray 07/27/22 10:05 IMPRESSION: No acute findings. Laboratory Results WBC 9.1 10^3/uL (4.0-10.0) 07/27/22 10:10 RBC 5.81 10^6/uL (4.1-5.3) H 07/27/22 10:10 Hgb 17.9 g/dL (11.7-16.6) H 07/27/22 10:10 Hct 53.2 % (42.0-52.0) H 07/27/22 10:10 MCV 91.6 fl (80-94) 07/27/22 10:10 MCH 30.8 pg (28.0-34.0) 07/27/22 10:10 MCHC 33.6 g/dL (30.0-36.0) 07/27/22 10:10 RDW 12.8 % (12.1-15.1) 07/27/22 10:10 Plt Count 335 10^3/cmm (130-400) 07/27/22 10:10 MPV 8.1 fL (7.4-10.4) 07/27/22 10:10 Neut % (Auto) 51.1 % 07/27/22 10:10 Lymph % (Auto) 37.9 % 07/27/22 10:10 [place] % (Auto) 8.4 % 07/27/22 10:10 Eos % (Auto) 1.0 % 07/27/22 10:10 Baso % (Auto) 0.9 % 07/27/22 10:10 Neut # (Auto) 4.66 10^3/uL (1.8-7.7) 07/27/22 10:10 Lymph # (Auto) 3.5 10^3/uL (0.8-4.8) 07/27/22 10:10 [place] # (Auto) 0.8 10^3/uL (0.2-0.9) 07/27/22 10:10 Eos # (Auto) 0.1 10^3/uL (0.0-0.8) 07/27/22 10:10 Baso # (Auto) 0.1 10^3/uL (0.0-0.1) 07/27/22 10:10 Nucleated RBC % (auto) 0 % 07/27/22 10:10 Nucleated RBCs # 0.0 /100WBC 07/27/22 10:10 Sodium 134 mmol/L (136-145) L 07/27/22 10:10 Potassium 4.1 mmol/L (3.5-5.1) 07/27/22 10:10 Chloride 98 mmol/L (98-107) 07/27/22 10:10 Carbon Dioxide 24 mmol/L (22-29) 07/27/22 10:10 Anion Gap 16.1 (5-19) 07/27/22 10:10 BUN 12 mg/dL (6-20) 07/27/22 10:10 Creatinine 0.8 mg/dL (0.7-1.2) 07/27/22 10:10 GFR Calculation 105.5 mL/min (90-130) 07/27/22 10:10 Glucose 142 mg/dL (65-115) H 07/27/22 10:10 Calculated Osmolality 280 mOsm/kg (285-295) L 07/27/22 10:10 Calcium 10.1 mg/dL (8.5-10.5) 07/27/22 10:10 Total Bilirubin 0.5 mg/dL (0.15-1.2) 07/27/22 10:10 AST 40 U/L (0-40) 07/27/22 10:10 ALT 60 U/L (0-41) H 07/27/22 10:10 Alkaline Phosphatase 81 U/L (40-130) 07/27/22 10:10 Troponin T Baseline 8 ng/L (0-15) 07/27/22 10:10 Troponin T 120 Minute 7.18 ng/L (0-15) 07/27/22 12:11 Delta Troponin T -1.18 ABS# (0-10) L 07/27/22 12:11 Total Protein 7.3 g/dL (6.6-8.7) 07/27/22 10:10 Albumin 4.5 g/dL (3.5-5.2) 07/27/22 10:10 Globulin 2.8 g/dL (1.3-4.6) 07/27/22 10:10 Discharge Plan Discharge Patient Disposition: Home Clinical Impression: Atypical chest pain, Chest wall pain, Anxiety Condition: Stable Prescriptions: New diclofenac sodium 75 mg tablet,delayed release (DR/EC) 75 mg PO Q12H PRN (Reason: pain) Qty: 20 0RF No Action acetaminophen [Tylenol Extra Strength] 500 mg tablet 500 mg PO Q6H PRN (Reason: Pain) Klonopin 0.5 mg tablet 0.5 mg PO TID 30 Days Qty: 90 0RF aspirin 81 mg Tablet,Delayed Release (Dr/Ec) 81 mg PO QAM nitroglycerin [Nitrostat] 0.4 mg Tablet, Sublingual 0.4 mg SUBLINGUAL Q5M PRN (Reason: Chest Pain) Rx Instructions: do not exceed 3 doses per episode clonidine HCl 0.1 mg Tablet 0.1 mg PO TID 30 Days Qty: 90 1RF lisinopril-hydrochlorothiazide 20-25 mg tablet 1 tab PO DAILY 30 Days Qty: 30 1RF Discharge Orders: Discharge ED (Routine); Ordered 07/27/22 Ordered By: Anil Senior Discharge Diet: Usual diet Discharge Activity: Increase activity as tolerated Patient Instructions: Opioid Safety, Pain Management Activity Restrictions/Additional Instructions: Use medicines previously prescribed for anxiety. He is diclofenac for the chest discomfort. Coding Level of Care Code ED Developmental Behavioral Physician for Adam Adair
[2022-07-27] MEDS: LORazepam 2 mg Tablet PO (12:58)
[2022-07-27 13:09] VITALS: BP 149/98; PULSE 93; RESP 17; TEMP 36.8; O2SAT 98
[2022-07-27 13:14] LABS: Troponin 5 2HR Delta -1.18 ABS# (0-10)
--- NOTE | 2022-07-28 09:09 | DCPLANNER ---
Addendum entered by Abida Denis 10/02/22 11:08: Patient had a follow up appointment scheduled with heart care -patient did not attend appointment. Addendum entered by Abida Denis 07/31/22 14:14: Patient has a follow up appointment scheduled for , September 24, 2022 at 2:[address] Cabrera at [facility]. Clinic will call patient with appointment information. Original Note: mine manager had message to schedule a follow up appointment for patient with cardiology. mine manager sent patients information to the front office staff at [facility]. Patients information will be printed and reviewed. Clinic will call patient with appointment information.
== END 2022-07-27 13:15 | disposition home or self-care (01) ==
PROVIDERS: Emergency Provider Family Medicine
DX: R07.89 Other chest pain (principal); F41.9 Anxiety disorder, unspecified; Z79.82 Long term (current) use of aspirin; I10 Essential (primary) hypertension; I25.10 Atherosclerotic heart disease of native coronary artery without angina pectoris; I25.2 Old myocardial infarction; F17.210 Nicotine dependence, cigarettes, uncomplicated
CPT/HCPCS: 36415; 71045; 80053; 84484; 85025; 93005; 99285

== ENCOUNTER → 2022-07-29 12:07 | Outpatient (BNVA) | payer BC, MEDICAID, SELFPAY | PROVIDERS: Visit Provider Nurse Practitioner Family | DX: M54.50 Low back pain, unspecified (principal); I10 Essential (primary) hypertension; K02.9 Dental caries, unspecified; K03.89 Other specified diseases of hard tissues of teeth; M94.0 Chondrocostal junction syndrome [Tietze]; F41.9 Anxiety disorder, unspecified; R73.09 Other abnormal glucose; Z68.35 Body mass index [BMI] 35.0-35.9, adult | CPT/HCPCS: 80061; 81000; 83036 ==

== ENCOUNTER 2022-08-13 18:10 | Emergency (ER) | payer BC, MEDICAID, SELFPAY ==
[2022-08-13 18:25] VITALS: BP 161/108; PULSE 91; RESP 18; TEMP 37.2; O2SAT 96
--- NOTE | 2022-08-13 18:29 | ED_ITS ---
HPI - Alcohol General: Chief Complaint: Overdose Stated Complaint: confused, ETOH Time Seen by Provider: 08/13/22 18:16 Source: patient and EMS Mode of arrival: EMS Limitations: no limitations History of Present Illness: 42-year-old male who is here with EMS. EMS states his friends had called them he is a daily drinker states that he had been drinking alcohol he also takes 0.5 mg clonazepam he states he took around for today per EMS friends were concerned because they were unable to wake him up pat ient's currently awake he is able to ambulate he is answering all my questions appropriately states that he drinks heavily daily he denies any suicidality or homicidality. Associated symptoms: Deny abdominal pain, depression, nausea or vomiting Review of Systems Const: Denies: fever(s), chills, body aches or change in appetite Eyes: Denies: blurry vision or eye discomfort ENMT: Denies: throat pain or dental pain Card: Denies: chest pain Resp: Denies: dyspnea GI: Denies: abdominal pain, nausea, vomiting or diarrhea : Denies: dysuria Musc: Denies: neck pain or back pain Skin/Breast: Denies: rash Neuro: Denies: headache(s) Psych: Denies: depression Conor/Lymph: Denies: easy bruising All/Imm: Denies: urticaria PFSH ED PFSH: Medical History Anxiety Chronic low back pain Cigarette smoker Claudication in peripheral vascular disease Since OR 2018 with walking 100 yards or less Dental caries associated with enamel hypomineralization Depression Hx of carotid stenosis Hypertension Presence of stent in coronary artery in patient with coronary artery disease [place] with stents x2 Torn rotator cuff Social History Smoking and tobacco status: current every day smoker cigarettes Packs smoked per day: 2 Alcohol intake: current Alcohol intake frequency: few times a week Marital status: Single Number of children: 0 Current occupational status: employed Physical Exam Const: COMMON NORMALS: no acute distress and patient oriented x3 OTHER: intoxicated HENMT: COMMON NORMALS: normocephalic and atraumatic HEAD & SCALP: normocephalic and atraumatic Eye: COMMON NORMALS: Equal, round and reactive pupils present and EOMs intact bilaterally PUPIL: Yes Equal, round and reactive pupils present Neck/C-Spine: COMMON NORMALS: full ROM and supple Chest: COMMONS NORMALS: normal inspection of the chest and normal palpation of entire chest wall Resp: COMMON NORMALS: normal respiratory effort, No retractions, No use of accessory muscles and clear to auscultation bilaterally AUSCULTATION: clear to auscultation bilaterally Cardio: COMMON NORMALS: regular rate, regular rhythm and No murmurs present (Cardio) RATE: regular rate RHYTHM: regular rhythm GI: COMMON NORMALS: Normal to inspection, nondistended, normoactive bowel sounds present, Soft to palpation, non-tender and no masses PALPATION: Yes Soft to palpation Extremity: COMMON NORMALS: normal to inspection and full ROM Neuro: COMMON NORMALS: patient oriented x3, moves all extremities and no focal motor deficits Psych: COMMON NORMALS: mental status grossly normal, Normal thought process present and cooperative THOUGHT PROCESS: Normal thought process present Skin: COMMON NORMALS: no rashes or lesions noted and no wounds GENERAL SKIN EXAM: no rashes or lesions noted Course Vital Signs: Vital signs: Vital Signs Temperature 98.9 F 08/13/22 18:25 Pulse Rate 75 08/13/22 21:00 Respiratory Rate 16 08/13/22 21:00 Blood Pressure 161/108 08/13/22 18:25 Pulse Oximetry 97 08/13/22 21:00 MDM - Alcohol Medical Decision Making Patient presents without intoxication he has been well-appearing here he is able answer all my questions he is ambulatory he is stable for discharge at this time. Lab Data 08/13/22 18:30 08/13/22 18:30 Laboratory Results WBC 9.5 10^3/uL (4.0-10.0) 08/13/22 18:30 RBC 5.87 10^6/uL (4.1-5.3) H 08/13/22 18:30 Hgb 18.1 g/dL (11.7-16.6) H 08/13/22 18:30 Hct 53.8 % (42.0-52.0) H 08/13/22 18:30 MCV 91.7 fl (80-94) 08/13/22 18:30 MCH 30.8 pg (28.0-34.0) 08/13/22 18:30 MCHC 33.6 g/dL (30.0-36.0) 08/13/22 18:30 RDW 12.9 % (12.1-15.1) 08/13/22 18:30 Plt Count 314 10^3/cmm (130-400) 08/13/22 18:30 MPV 8.1 fL (7.4-10.4) 08/13/22 18:30 Neut % (Auto) 66.3 % 08/13/22 18:30 Lymph % (Auto) 26.4 % 08/13/22 18:30 [place] % (Auto) 5.8 % 08/13/22 18:30 Eos % (Auto) 0.3 % 08/13/22 18:30 Baso % (Auto) 0.5 % 08/13/22 18:30 Neut # (Auto) 6.29 10^3/uL (1.8-7.7) 08/13/22 18:30 Lymph # (Auto) 2.5 10^3/uL (0.8-4.8) 08/13/22 18:30 [place] # (Auto) 0.6 10^3/uL (0.2-0.9) 08/13/22 18:30 Eos # (Auto) 0.0 10^3/uL (0.0-0.8) 08/13/22 18:30 Baso # (Auto) 0.1 10^3/uL (0.0-0.1) 08/13/22 18:30 Nucleated RBC % (auto) 0 % 08/13/22 18:30 Nucleated RBCs # 0.0 /100WBC 08/13/22 18:30 Sodium 136 mmol/L (136-145) 08/13/22 18:30 Potassium 4.2 mmol/L (3.5-5.1) 08/13/22 18:30 Chloride 98 mmol/L (98-107) 08/13/22 18:30 Carbon Dioxide 26 mmol/L (22-29) 08/13/22 18:30 Anion Gap 16.2 (5-19) 08/13/22 18:30 BUN 9 mg/dL (6-20) 08/13/22 18:30 Creatinine 0.8 mg/dL (0.7-1.2) 08/13/22 18:30 GFR Calculation 105.5 mL/min (90-130) 08/13/22 18:30 Glucose 120 mg/dL (65-115) H 08/13/22 18:30 Calculated Osmolality 282 mOsm/kg (285-295) L 08/13/22 18:30 Calcium 9.5 mg/dL (8.5-10.5) 08/13/22 18:30 Total Bilirubin 0.5 mg/dL (0.15-1.2) 08/13/22 18:30 AST 55 U/L (0-40) H 08/13/22 18:30 ALT 70 U/L (0-41) H 08/13/22 18:30 Alkaline Phosphatase 83 U/L (40-130) 08/13/22 18:30 Total Protein 8.1 g/dL (6.6-8.7) 08/13/22 18:30 Albumin 4.3 g/dL (3.5-5.2) 08/13/22 18:30 Globulin 3.8 g/dL (1.3-4.6) 08/13/22 18:30 Ethyl Alcohol 167 mg/dL (0-10) H 08/13/22 18:30 Discharge Plan Discharge Patient Disposition: Home Clinical Impression: Alcohol intoxication Condition: Stable Prescriptions: No Action acetaminophen [Tylenol Extra Strength] 500 mg tablet 500 mg PO Q6H PRN (Reason: Pain) cyclobenzaprine 10 mg tablet 10 mg PO TID PRN (Reason: muscle spasm) Qty: 20 0RF lisinopril-hydrochlorothiazide 20-25 mg tablet 1 tab PO DAILY 30 Days Qty: 90 1RF Klonopin 0.5 mg tablet 0.5 mg PO TID 30 Days Qty: 90 0RF aspirin 81 mg Tablet,Delayed Release (Dr/Ec) 81 mg PO QAM nitroglycerin [Nitrostat] 0.4 mg Tablet, Sublingual 0.4 mg SUBLINGUAL Q5M PRN (Reason: Chest Pain) Rx Instructions: do not exceed 3 doses per episode Discharge Orders: Discharge ED (Routine); Ordered 08/13/22 Ordered By: Laura Marshall Discharge Diet: Advance as tolerated Discharge Activity: Resume usual activity Patient Instructions: Alcohol Intoxication (ED) Coding Level of Care Code ED Fishing Tackle Repairer for Chg Fwd Exam Comprehensive
[2022-08-13 18:37] LABS: Basophils # 0.1 10^3/uL (0.0-0.1); Basophils % 0.5 %; Eosinophils % 0.3 %; Hematocrit 53.8 % (42.0-52.0); Hemoglobin 18.1 g/dL (11.7-16.6); Lymphocytes # 2.5 10^3/uL (0.8-4.8); Lymphocytes % 26.4 %; Mean Corpuscular HGB Conc 33.6 g/dL (30.0-36.0); Mean Corpuscular Hemoglobin 30.8 pg (28.0-34.0); Mean Corpuscular Volume 91.7 fl (80-94); Mean Platelet Volume 8.1 fL (7.4-10.4); Monocytes # 0.6 10^3/uL (0.2-0.9); Monocytes % 5.8 %; Neutrophils # 6.29 10^3/uL (1.8-7.7); Neutrophils % 66.3 %; Nucleated Red Blood Cells % 0 %; Platelet Count 314 10^3/cmm (130-400); Red Blood Count 5.87 10^6/uL (4.1-5.3); Red Cell Distribution Width 12.9 % (12.1-15.1); White Blood Count 9.5 10^3/uL (4.0-10.0)
--- NOTE | 2022-08-13 18:39 | ECG_ITS ---
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 Measurements Intervals [place] Rate: 85 P: 37 TX: 165 QRS: 41 QRSD: 111 T: 0 QT: 386 QTc: 461 Interpretive Statements SINUS RHYTHM INCOMPLETE RIGHT BUNDLE BRANCH BLOCK [90+ ms QRS DURATION, TERMINAL R IN V1/V2, 40+ ms S IN I/aVL/V4/V5/V6] INFERIOR MYOCARDIAL INFARCTION , PROBABLY OLD [40+ ms Q WAVE AND/OR ST/T ABNORMALITY IN II/aVF] Compared to ECG 07/27/2022 12:41:05 Incomplete right bundle-branch block now present Myocardial infarct finding now present Electronically Signed On 08-14-2022 6:24:01 DIRECTOR CORPORATE SALES by Michael Cabrera M.D. [id number]
[2022-08-13 18:56] LABS: Alanine Aminotransferase 70 U/L (0-41); Albumin Level 4.3 g/dL (3.5-5.2); Alcohol Level 167 mg/dL (0-10); Alkaline Phosphatase 83 U/L (40-130); Anion Gap 16.2 (5-19); Aspartate Amino Transferase 55 U/L (0-40); Blood Urea Nitrogen 9 mg/dL (6-20); Calcium 9.5 mg/dL (8.5-10.5); Carbon Dioxide 26 mmol/L (22-29); Chloride 98 mmol/L (98-107); Globulin 3.8 g/dL (1.3-4.6); Glomerular Filtration Rate 105.5 mL/min (90-130); Glucose 120 mg/dL (65-115); Osmolality Calculated 282 mOsm/kg (285-295); Potassium 4.2 mmol/L (3.5-5.1); Sodium 136 mmol/L (136-145); Total Bilirubin 0.5 mg/dL (0.15-1.2); Total Protein 8.1 g/dL (6.6-8.7)
[2022-08-13 21:00] VITALS: PULSE 75; RESP 16; O2SAT 97
== END 2022-08-13 20:55 | disposition home or self-care (01) ==
PROVIDERS: Emergency Provider Emergency Medicine
DX: F10.129 Alcohol abuse with intoxication, unspecified (principal); Y90.6 Blood alcohol level of 120-199 mg/100 ml; Z79.82 Long term (current) use of aspirin; F17.210 Nicotine dependence, cigarettes, uncomplicated; I10 Essential (primary) hypertension
CPT/HCPCS: 80053; 80307; 85025; 93005; 96374; 99284; J3411

== ENCOUNTER 2022-09-22 10:50 | Inpatient (IN) | payer BC, SELFPAY ==
[2022-09-22] VITALS (75 sets, daily range): BP systolic 131–189; BP diastolic 83–131; PULSE 53–81; RESP 11–28; TEMP 36.2–36.5; O2SAT 93–100; BMI 37.4
--- NOTE | 2022-09-22 11:42 | W.ED.PSYCHS ---
HPI - Psych General: Chief Complaint: Psychiatric Symptoms Stated Complaint: SI Time Seen by Provider: 09/22/22 11:03 History of Present Illness: 42-year-old male who comes in with alcohol withdrawal symptoms. Patient states he has not had any alcohol today to drink. He states typically drinks a case of beer as well as a gallon of fireball. Has not had any alcohol since yesterday. He states typically by this time of the day he is already drank a case of beer. He is feeling very shaky and anxious. He is having tactile sensory hallucinations. He he also has a history of hypertension and has not been on his medications. He states that today he decided he needs help and he wants to stop drinking. He denies suicidal ideations. He denies homicidal ideations. He states he has 8 people that he is angry with but he has no intention of harming them. He denies other drug use. He has a history of alcohol withdrawal in the past but has never had a seizure in the past. He is also supposed to be on Klonopin which she has been out of for the past 2 weeks Associated symptoms: Deny auditory hallucinations, visual hallucinations, depression, homicidal ideation or suicidal ideation Review of Systems Const: Denies: fever(s), chills or body aches Eyes: Denies: change in vision or blurry vision ENMT: Denies: throat pain, ear or mastoid pain, nasal congestion or post nasal drip Card: Denies: chest pain Resp: Denies: dyspnea or productive cough GI: Denies: abdominal pain, vomiting, diarrhea or constipation : Denies: flank pain or dysuria Musc: Denies: neck pain or back pain Skin/Breast: Denies: rash or pruritus Neuro: Denies: headache(s) Psych: Reports: anxiety, panic attacks, difficulty concentrating and tactile hallucinations; Denies: depression, paranoia, visual hallucinations, auditory hallucinations, suicidal ideation or homicidal ideation Endo: Denies: polyuria Conor/Lymph: Denies: easy bruising All/Imm: Denies: seasonal rhinorrhea PFSH ED PFSH: Medical History Anxiety Chronic low back pain Cigarette smoker Claudication in peripheral vascular disease Since 2018 with walking 100 yards or less Dental caries associated with enamel hypomineralization Depression Hx of carotid stenosis Hypertension Presence of stent in coronary artery in patient with coronary artery disease [place] in 2018 with stents x2 Torn rotator cuff Social History Smoking and tobacco status: current every day smoker cigarettes Packs smoked per day: 2 Alcohol intake: current Alcohol intake frequency: few times a week Marital status: Single Number of children: 0 Current occupational status: employed Physical Exam Const: COMMON NORMALS: no acute distress, patient oriented x3 and alert GENERAL APPEARANCE: cooperative and comfortable ORIENTATION/CONSCIOUSNESS: Yes oriented to person, Yes oriented to place and Yes oriented to time HENMT: COMMON NORMALS: normocephalic HEAD & SCALP: normocephalic Eye: COMMON NORMALS: Equal, round and reactive pupils present PUPIL: Yes Equal, round and reactive pupils present Neck/C-Spine: COMMON NORMALS: full ROM Resp: COMMON NORMALS: normal respiratory effort, No retractions, No use of accessory muscles and clear to auscultation bilaterally EFFORT & INSPECTION: Yes able to speak in complete sentences AUSCULTATION: clear to auscultation bilaterally Cardio: COMMON NORMALS: regular rate, regular rhythm, S1 normal heart sound present, S2 normal heart sound present, No gallops present (Cardio), No clicks present (Cardio), No murmurs present (Cardio) and No rub (Cardio) RATE: regular rate RHYTHM: regular rhythm HEART SOUNDS: S1 normal heart sound present and S2 normal heart sound present GI: COMMON NORMALS: Normal to inspection, nondistended, normoactive bowel sounds present, Soft to palpation and non-tender PALPATION: Yes Soft to palpation Neuro: COMMON NORMALS: patient oriented x3 SENSORIUM/ORIENTATION: Yes alert, Yes oriented to person, Yes oriented to place and Yes oriented to time Psych: COMMON NORMALS: mental status grossly normal, Normal thought process present, cooperative, normal affect, speech normal, denies homicidal ideation and denies suicidal ideation; negative for activity/motor behavior normal and negative for denies hallucinations APPEARANCE: Yes grossly normal ATTITUDE: Yes calm ACTIVITY/MOTOR BEHAVIOR: Yes psychomotor agitation, No psychomotor slowing, Yes fidgeting and Yes hyperactivity SPEECH: Yes normal speech MOOD & AFFECT: Yes anxious THOUGHT PROCESS: Normal thought process present, Flight of ideas present and racing thoughts THOUGHT CONTENT: Yes Hallucination(s) present visual MEMORY/COGNITION: Yes memory grossly intact Skin: COMMON NORMALS: no rashes or lesions noted GENERAL SKIN EXAM: no rashes or lesions noted Course ED course: Patient's had an IV placed and labs obtained. Is been given 2 mg of Ativan IV as well as 10 mg of Zyprexa IM. He has been given a banana bag IV as well as a liter of saline in addition to that. His laboratory studies are unremarkable. After the Ativan, I feel the patient is clinically stable and could be placed in a rehab facility with a prescription for Ativan to prevent further withdrawal. Discussed with Dr. Hart who agrees to keep the patient during his alcohol withdrawal. An attempt to find long-term treatment placement for the patient. Reevaluation(s): Reevaluation #1: Patient is feeling significantly better. He states he feels just a little agitated but not near as anxious as he was before. His heart rate and his blood pressure have normalized. He is resting comfortably. Time: 15:00 Consultations: Consultation #1: Discussed with Dr. Baker who agrees with admission Vital Signs: Vital signs: Vital Signs Temperature 97.4 F L 09/22/22 10:53 Pulse Rate 63 09/22/22 15:25 Respiratory Rate 22 H 09/22/22 15:25 Blood Pressure 174/125 09/22/22 15:25 Pulse Oximetry 97 09/22/22 15:25 Oxygen Delivery Me thod 09/22/22 10:53 [facility] - Psych Medical Decision Making Patient is no longer tachycardic or hypertensive or having hallucinations after Ativan the banana bag and IV fluids. Lab Data 09/22/22 12:03 09/22/22 12:03 Laboratory Results WBC 9.3 10^3/uL (4.0-10.0) 09/22/22 12:03 RBC 5.34 10^6/uL (4.1-5.3) H 09/22/22 12:03 Hgb 16.6 g/dL (11.7-16.6) 09/22/22 12:03 Hct 47.6 % (42.0-52.0) 09/22/22 12:03 MCV 89.1 fl (80-94) 09/22/22 12:03 MCH 31.1 pg (28.0-34.0) 09/22/22 12:03 MCHC 34.9 g/dL (30.0-36.0) 09/22/22 12:03 RDW 11.9 % (12.1-15.1) L 09/22/22 12:03 Plt Count 301 10^3/cmm (130-400) 09/22/22 12:03 MPV 8.0 fL (7.4-10.4) 09/22/22 12:03 Neut % (Auto) 51.9 % 09/22/22 12:03 Lymph % (Auto) 39.1 % 09/22/22 12:03 [place] % (Auto) 6.1 % 09/22/22 12:03 Eos % (Auto) 1.7 % 09/22/22 12:03 Baso % (Auto) 0.8 % 09/22/22 12:03 Neut # (Auto) 4.81 10^3/uL (1.8-7.7) 09/22/22 12:03 Lymph # (Auto) 3.6 10^3/uL (0.8-4.8) 09/22/22 12:03 [place] # (Auto) 0.6 10^3/uL (0.2-0.9) 09/22/22 12:03 Eos # (Auto) 0.2 10^3/uL (0.0-0.8) 09/22/22 12:03 Baso # (Auto) 0.1 10^3/uL (0.0-0.1) 09/22/22 12:03 Nucleated RBC % (auto) 0 % 09/22/22 12:03 Nucleated RBCs # 0.0 /100WBC 09/22/22 12:03 Sodium 136 mmol/L (136-145) 09/22/22 12:03 Potassium 4.1 mmol/L (3.5-5.1) 09/22/22 12:03 Chloride 103 mmol/L (98-107) 09/22/22 12:03 Carbon Dioxide 24 mmol/L (22-29) 09/22/22 12:03 Anion Gap 13.1 (5-19) 09/22/22 12:03 BUN 11 mg/dL (6-20) 09/22/22 12:03 Creatinine 0.7 mg/dL (0.7-1.2) 09/22/22 12:03 GFR Calculation 123.1 mL/min (90-130) 09/22/22 12:03 Glucose 88 mg/dL (65-115) 09/22/22 12:03 Calculated Osmolality 281 mOsm/kg (285-295) L 09/22/22 12:03 Calcium 9.5 mg/dL (8.5-10.5) 09/22/22 12:03 Magnesium 1.9 mg/dL (1.7-2.3) 09/22/22 12:03 Total Bilirubin 0.4 mg/dL (0.15-1.2) 09/22/22 12:03 AST 30 U/L (0-40) 09/22/22 12:03 ALT 43 U/L (0-41) H 09/22/22 12:03 Alkaline Phosphatase 82 U/L (40-130) 09/22/22 12:03 Total Protein 7.6 g/dL (6.6-8.7) 09/22/22 12:03 Albumin 4.3 g/dL (3.5-5.2) 09/22/22 12:03 Globulin 3.3 g/dL (1.3-4.6) 09/22/22 12:03 TSH 1.40 uIU/mL (0.27-4.20) 09/22/22 12:03 Urine Color Yellow (Yellow) 09/22/22 11:59 Urine Appearance Clear (CLEAR) 09/22/22 11:59 Urine pH 7 (5-7) 09/22/22 11:59 Ur Specific [place] 1.010 (1.005-1.030) 09/22/22 11:59 Urine Protein Neg (Negative) 09/22/22 11:59 Urine Glucose (UA) 2+ (Normal) H 09/22/22 11:59 Urine Ketones Negative (Negative) 09/22/22 11:59 Urine Blood Neg (Negative) 09/22/22 11:59 Urine Nitrate Negative (Negative) 09/22/22 11:59 Urine Bilirubin Neg (Negative) 09/22/22 11:59 Urine Urobilinogen Norm mg/dL (Negative) 09/22/22 11:59 Ur Leukocyte Esterase Negative (Negative) 09/22/22 11:59 Salicylates < 0.3 mg/dL (3-10) L 09/22/22 12:03 Urine Opiates Screen Negative ng/mL (Negative) 09/22/22 11:59 Acetaminophen < 5.0 ug/mL (10-30) L 09/22/22 12:03 Ur Barbiturates Screen Negative ng/mL (Negative) 09/22/22 11:59 Ur Phencyclidine Scrn Negative ng/mL (Negative) 09/22/22 11:59 Ur Amphetamines Screen Negative ng/mL (Negative) 09/22/22 11:59 U Benzodiazepines Scrn Positive ng/mL (Negative) H 09/22/22 11:59 Urine Cocaine Screen Negative ng/mL (Negative) 09/22/22 11:59 U Marijuana (THC) Screen Negative ng/mL (Negative) 09/22/22 11:59 SARS-CoV-2 Ag (Rapid) negative (Negative) 09/22/22 14:10 Discharge Plan Discharge Patient Disposition: Admitted As Inpatient Clinical Impression: Alcohol abuse, Anxiety, Alcohol withdrawal Condition: Stable Coding Level of Care Code ED Compliance Program Manager for Adam Adair History Comprehensive Exam Comprehensive Medical Decision Making High Complexity
[2022-09-22 12:16] LABS: Basophils # 0.1 10^3/uL (0.0-0.1); Basophils % 0.8 %; Eosinophils # 0.2 10^3/uL (0.0-0.8); Eosinophils % 1.7 %; Hematocrit 47.6 % (42.0-52.0); Hemoglobin 16.6 g/dL (11.7-16.6); Lymphocytes # 3.6 10^3/uL (0.8-4.8); Lymphocytes % 39.1 %; Mean Corpuscular HGB Conc 34.9 g/dL (30.0-36.0); Mean Corpuscular Hemoglobin 31.1 pg (28.0-34.0); Mean Corpuscular Volume 89.1 fl (80-94); Monocytes # 0.6 10^3/uL (0.2-0.9); Monocytes % 6.1 %; Neutrophils # 4.81 10^3/uL (1.8-7.7); Neutrophils % 51.9 %; Nucleated Red Blood Cells % 0 %; Platelet Count 301 10^3/cmm (130-400); Red Blood Count 5.34 10^6/uL (4.1-5.3); Red Cell Distribution Width 11.9 % (12.1-15.1); White Blood Count 9.3 10^3/uL (4.0-10.0)
[2022-09-22 12:45] LABS: Alanine Aminotransferase 43 U/L (0-41); Albumin Level 4.3 g/dL (3.5-5.2); Alkaline Phosphatase 82 U/L (40-130); Anion Gap 13.1 (5-19); Aspartate Amino Transferase 30 U/L (0-40); Blood Urea Nitrogen 11 mg/dL (6-20); Calcium 9.5 mg/dL (8.5-10.5); Carbon Dioxide 24 mmol/L (22-29); Chloride 103 mmol/L (98-107); Globulin 3.3 g/dL (1.3-4.6); Glomerular Filtration Rate 123.1 mL/min (90-130); Glucose 88 mg/dL (65-115); Magnesium 1.9 mg/dL (1.7-2.3); Osmolality Calculated 281 mOsm/kg (285-295); Potassium 4.1 mmol/L (3.5-5.1); Sodium 136 mmol/L (136-145); Total Bilirubin 0.4 mg/dL (0.15-1.2); Total Protein 7.6 g/dL (6.6-8.7)
[2022-09-22 12:48] LABS: Acetaminophen < 5.0 ug/mL (10-30); Salicylate < 0.3 mg/dL (3-10)
[2022-09-22] MEDS: sodium chloride 0.9% 1,000 ML 999 ML IV (12:54)
[2022-09-22] MEDS: ziprasidone 20 mg/mL SDV 10 MG IM (12:55)
[2022-09-22] MEDS: folic acid 1 MG, multivitamin inj 10 ML, thiamine 100 MG in sodium chloride 0.9% 1,000 ML 252.8 MG IV (12:55)
[2022-09-22] MEDS: LORazepam 2 mg/mL INJ 1 mL IV (12:55)
[2022-09-22 13:13] LABS: Add Urine Microscopic? NO; Charge for UA Resulting for Rev
[2022-09-22 13:20] LABS: Bilirubin Urine Neg (Negative); Blood Urine Neg (Negative); Glucose Urine UA 2+ (Normal); Ketones Urine Negative (Negative); Leukocyte Esterase Urine Negative (Negative); Nitrate Urine Negative (Negative); Protein Urine Neg (Negative); Urine Appearance Clear (CLEAR); Urine Color Yellow (Yellow); Urobilinogen Urine Norm (Negative); pH Urine 7 (5-7)
[2022-09-22 13:27] LABS: Amphetamines Screen Urine Negative (Negative); Barbiturates Screen Urine Negative (Negative); Benzodiazepines Screen Urine Positive (Negative); Cocaine Screen Urine Negative (Negative); Opiate Screen Urine Negative (Negative); PCP Screen Urine Negative (Negative); THC Screen Urine Negative (Negative)
[2022-09-22 14:53] LABS: SARS Covid-2 Antigen negative (Negative)
--- NOTE | 2022-09-22 15:02 | DCPLANNER ---
occupational therapy manager had message to place patient into [facility]. occupational therapy manager called [facility], was told that facility did not have any beds at this time. Patient would need to go to the facility, fill out intake paperwork.
[2022-09-22] MEDS: diazePAM 5 mg Tablet 20 MG PO (19:10)
[2022-09-22] MEDS: hydroCHLOROthiazide 25 mg Tablet PO (19:10)
[2022-09-22] MEDS: lisinopril 20 mg Tablet PO ×2 (19:10→20:04)
--- NOTE | 2022-09-22 19:27 | PM.CONSULT ---
Providers/Reason For Consult Consulting Physician/Specialty*: psychiatry Reason for Consult*: alcohol withdrawl Attending Physician: Keny Andrews MD History of Present Illness History of Present Illness Rudy Crawford is a 42 year old male with a past medical history of hypertension, PTSD, CAD status post stents x2, obesity, history of alcoholism, history of anxiety, history of depression,, who presents to [facility] due to concerns for alcohol withdrawal. Patient tells me for the last 2 months he has been drinking much more alcohol, he tells me that his primary care took him off Klonopin and he has been having severe anxiety, he tells me that he has severe PTSD after his cardiac stent placement, history anxiety about chest pain. He tells me that he has been drinking half a pint of vodka, 12 cans of beer, and multiple shots of fireball a day. His last drink of alcohol which i was half a pint of fireball was yesterday, he not sure what time. Denies suicidal ideation, homicidal ideation, denies any chest pain, no palpitations but feels very anxious, diaphoretic, has a tremor, but he tells me that he always has a tremor in both his legs due to severe PTSD. Denies seeing or hearing things are not there, no nausea, no vomiting. He has had severe alcohol withdrawals in the past no isolation no intubation, no history of delirium tremens. Does report frequent eye-opening, frequent blacking out alcohol consumption Review of Systems Const: Denies: fever(s) or chills Eyes: Denies: change in vision ENMT: Denies: nasal congestion Resp: Denies: dyspnea, non-productive cough or wheezing GI: Denies: abdominal pain, nausea, vomiting, hematemesis, diarrhea, constipation, hematochezia or melena : Denies: flank pain, difficulty urinating, dysuria or urinary frequency Skin/Breast: Denies: rash Neuro: Denies: headache(s) or weakness in extremities Medications/Allergies Home Medications Medication Instructions Recorded Confirmed Last Taken Type gabapentin 300 mg capsule 300 mg PO BID 09/22/22 09/22/22 09/21/22 History hydrochlorothiazide 25 mg tablet 25 mg PO DAILY 09/22/22 09/22/22 Unknown History hydroxyzine pamoate 50 mg capsule 50 mg PO QID PRN Anxiety 09/22/22 09/22/22 Unknown History lisinopril 20 mg tablet 20 mg PO DAILY 09/22/22 09/22/22 Unknown History Allergies Allergy/AdvReac Type Severity Reaction Status Date / Time codeine Allergy ALGY-Hives Verified 09/22/22 10:53 ketorolac [From Toradol] Allergy ALGY-Hives Verified 09/22/22 10:53 Current Medications Generic Name Dose Route Start Last Admin Trade Name Alfreda PRN Reason Stop Dose Admin Hydrochlorothiazide 25 mg 09/22/22 19:01 09/22/22 19:10 Hydrochlorothiazide 25 Mg Tablet PO 25 mg DAILY BATOOL Administration Lisinopril 20 mg 09/22/22 19:00 09/22/22 19:10 Lisinopril 20 Mg Tablet PO 20 mg DAILY BATOOL Administration PFSH Acute PFSH: Medical History Anxiety Chronic low back pain Cigarette smoker Claudication in peripheral vascular disease Since 2017 with walking 100 yards or less Dental caries associated with enamel hypomineralization Depression Hx of carotid stenosis Hypertension Presence of stent in coronary artery in patient with coronary artery disease [place] in 2018 with stents x2 Torn rotator cuff Social History Smoking and tobacco status: current every day smoker cigarettes Packs smoked per day: 2 Alcohol intake: current Alcohol intake frequency: few times a week Marital status: Single Number of children: 0 Current occupational status: employed Vitals/I&O/Wt Last Vital Signs Temp 97.5 F L 09/22/22 18:20 Pulse 64 09/22/22 18:20 Resp 18 09/22/22 18:20 BP 189/131 09/22/22 18:20 Pulse Ox 98 09/22/22 18:20 O2 Del Method 09/22/22 18:22 09/22/22 09/22/22 09/22/22 06:59 14:59 22:59 Intake Total 1000 / 1000 1011.2 / 2010.2 Balance 1000 / 1000 1011.2 / 2010.2 Weight last 48 hrs Weight 111.584 kg Physical Exam Const: COMMON NORMALS: no acute distress and patient oriented x3 HENMT: COMMON NORMALS: normocephalic HEAD & SCALP: normocephalic Eye: COMMON NORMALS: Equal, round and reactive pupils present and EOMs intact bilaterally PUPIL: Yes Equal, round and reactive pupils present Neck/C-Spine: COMMON NORMALS: no JVD Resp: COMMON NORMALS: normal respiratory effort, No retractions, No use of accessory muscles and clear to auscultation bilaterally AUSCULTATION: clear to auscultation bilaterally Cardio: COMMON NORMALS: no JVD, regular rate, regular rhythm, S1 normal heart sound present and S2 normal heart sound present RATE: regular rate RHYTHM: regular rhythm HEART SOUNDS: S1 normal heart sound present and S2 normal heart sound present GI: COMMON NORMALS: Normal to inspection, nondistended, normoactive bowel sounds present, Soft to palpation, non-tender, No hepatosplenomegaly present, no masses and no bruits PALPATION: Yes Soft to palpation and Yes No hepatosplenomegaly present Extremity: COMMON NORMALS: capillary refill normal, no clubbing, cyanosis or edema, no calf tenderness and no pedal edema Neuro: COMMON NORMALS: patient oriented x3, CN's II-XII intact bilaterally, moves all extremities and no focal motor deficits Psych: COMMON NORMALS: mental status grossly normal Data 09/22/22 12:03 09/22/22 12:03 A&P Assessment and plan (1) Alcohol withdrawal: (2) Anxiety: (3) Alcohol abuse: (4) Hypertensive urgency: (5) CAD (coronary artery disease): Plan Alcohol withdrawal -Patient has already received diazepam -Receiving Ativan as needed as per CIWA protocol -Folic acid, thiamine, multivitamin -Start his home clonidine 0.1 3 times daily -We will watch him for about an hour -CIWA protocol -If his CIWA scores do not improve, then we will start him on scheduled Librium -If it does not improve after a few hours after that, we will consider moving to ICU for close monitoring -Full code Hypertensive urgency, likely second alcohol withdrawal continues on medication resume his clonidine -Monitor blood pressure Consult Attestations Medical Necessity Statement: Patient requires hospitalization, inpatient, greater than 2 midnights, for alcohol withdrawal, hypertensive urgency Coding Level of Care Code Acute Shipping Clerk for Chg Fwd Diagnoses Alcohol withdrawal F10.939 Anxiety F41.9 Alcohol abuse F10.10 Hypertensive urgency I16.0 CAD (coronary artery disease) I25.10
[2022-09-22] MEDS: cloNIDine 0.1 mg Tablet PO (19:29)
[2022-09-22] MEDS: atorvastatin 40 mg Tablet PO (20:04)
[2022-09-22] MEDS: aspirin 81 mg EC Tablet PO (20:04)
[2022-09-22 20:25] LABS: Alcohol Level < 10 mg/dL (0-10)
[2022-09-23] VITALS (11 sets, daily range): BP systolic 129–168; BP diastolic 85–123; PULSE 68–103; RESP 17–18; TEMP 36.3–36.9; O2SAT 98–99
[2022-09-23] MEDS: acetaminophen 325 mg Tablet 650 MG PO (05:29)
[2022-09-23] MEDS: lisinopril 20 mg Tablet PO (06:50)
[2022-09-23] MEDS: aspirin 81 mg EC Tablet PO (06:50)
[2022-09-23] MEDS: LORazepam 2 mg Tablet PO ×4 (06:50→20:52)
[2022-09-23] MEDS: cloNIDine 0.1 mg Tablet PO ×3 (06:50→20:38)
[2022-09-23] MEDS: multivitamin therapeutic Tablet 1 TAB PO (06:50)
[2022-09-23] MEDS: gabapentin 300 mg Capsule PO ×3 (06:50→20:38)
[2022-09-23] MEDS: thiamine 100 mg Tablet PO (06:51)
[2022-09-23] MEDS: hydroCHLOROthiazide 25 mg Tablet PO (06:51)
[2022-09-23] MEDS: folic acid 1 mg Tablet PO (06:52)
--- NOTE | 2022-09-23 09:23 | PC.NURSE ---
Security Flex Officer Documentation Multivitamin given at 0650 on previous nightshift. Night nurse forgot to scan when she gave all other night medications at the same time. Medication administration was verified by night nurse and documented by this RN.
--- NOTE | 2022-09-23 10:19 | PC.NURSE ---
SEE INCIDENT REPORT FROM 09/22/22
[2022-09-23] MEDS: nicotine 21 mg Patch 1 PATCH TRANSDERMA (10:52)
--- NOTE | 2022-09-23 14:59 | P.NPUHP_ITS ---
Providers/Chief Complaint Admitting Physician: Keny Andrews MD Chief Complaint: Suicidal ideation HPI [facility] History of Present Illness Rudy Crawford is a 42 year old male who had presented to his primary care nurse on 09/22/2020 2 in the morning requesting treatment for alcohol withdrawal. He reports that he wishes to stop his consumption of alcohol and stated that he was having withdrawal symptoms as he had reported having last consumed alcohol on the night of 09/21/2022. He had reported having consumed a gallon of fireball whiskey and reports having consumed a case of beer on a daily basis. He reports his consumption of alcohol has been increasing since he was taken abruptly off of his prescribed Klonopin of 2 mg/day. He had reported a previous history of panic attacks and considerable anxiety that had been worsening his cardiac problems. He states that he had not been prescribed Klonopin for over a month. He endorses a past history of withdrawal seizures although it is uncertain as to whether that was associated with withdrawal from benzodiazepines or alcohol. He had acknowledged no depression but states that his panic attacks have been more frequent over the past few months. He reports an extended history of chest pain shortness of breath difficulty swallowing and feeling like he is going to . He reports that these panic attacks occur without triggers frequently. Current medications: gabapentin 300mg bid, hydrochlorothiazide/lisinopril: 25mg/20mg, hydroxyzine 25mg bid Previous admission on 06/22/2022 at NPU: Rudy Crawford is a 42 year old single white male with a history of panic attacks coronary artery disease and hypertension who reports to the emergency department with suicidal ideation with a plan to jump off of a bridge.? He had reported that he had been feeling more depressed and reported uncontrolled anxiety over the past 3 months since he had ran out of his Klonopin 1 mg twice a day.? He had reported that he has had chronic panic attacks for many years with unknown triggered panic attacks lasting approximately 40 minutes with associated chest pain shortness of breath numbing and tingling in his fingers and difficulty with breathing.? He reports that his panic attacks have led him to the emergency department multiple times with complaints of chest pain.? He reports that he had a heart attack a few years ago and he has had these panic attacks since that time.? The patient reports being burdened by anxiety over the past few months.? He reports that he had been unable to receive his Klonopin in [place], [place] where he had moved.? He reports that he had recently moved back to the area and had not been able to see his primary care physician yet to get back on his Klonopin.? The patient had reported diminished energy low motivation and depressed mood for the past month.? He had endorsed having suicidal thoughts.? He denied any psychotic symptoms.? He denied any history of manic symptoms.? He had reported a long history of chronic worry since his heart attack occurred. Past psychiatric history: Patient has a history of 1 inpatient hospitalization 2 years ago for suicidal ideation at [facility] in [facility].? He had reported no history of psychotherapy but reports a history of having been treated for panic attacks and depression with medication trials on Lexapro and xanax.? He also reported a history of having been treated for opioid abuse with a history of having been in methadone clinic for a few years having last used methadone 6 years ago. Medical history: Chronic lower back pain peripheral vascular disease with claudication history of carotid stenosis history of hypertension, HTN Surgical history he has a history of placement of stent in the coronary artery he has a history of repair of a torn rotator cuff Allergies: Toradol Medications: Klonopin 1 mg twice a day aspirin 81 mg in the morning clonidine 0.1 mg twice a day nitroglycerin as needed Drug and alcohol history: He reports having begun use of opiates at the age of [age].? He had reported last use of opiates for treating pain few days ago.? He had reported a past history of methadone treatment but reports no substance abuse inpatient or rehabilitation in the past.? He had reported a past history of alcohol abuse but reports that he has not been drinking recently.? He denies any history of benzodiazepine misuse. Family psychiatric history: alcohol abuse-father Social History: Patient was born and raised in [facility].? He is currently living in [facility].? He has never been and has no children.? He was raised by his biological parents and is the youngest of 5.? 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 He denies any significant history of trauma.? He denies any history of legal issues. Update: Patient had endorsed recently having been hospitalized at [facility] in late July in an attempt to help with detoxification off of benzodiazepines and alcohol. He reports that he had left and intensive inpatient rehabilitation facility in [place] in early August 2022. His living situation is also changed he is currently staying with a friend near [facility]. Meds NPU Home Medications Medication Instructions Recorded Confirmed Last Taken Type gabapentin 300 mg capsule 300 mg PO BID 09/22/22 09/22/22 09/21/22 History hydrochlorothiazide 25 mg tablet 25 mg PO DAILY 09/22/22 09/22/22 Unknown History hydroxyzine pamoate 50 mg capsule 50 mg PO QID PRN Anxiety 09/22/22 09/22/22 Unknown History lisinopril 20 mg tablet 20 mg PO DAILY 09/22/22 09/22/22 Unknown History Allergies Allergy/AdvReac Type Severity Reaction Status Date / Time codeine Allergy ALGY-Hives Verified 09/22/22 10:53 ketorolac [From Toradol] Allergy ALGY-Hives Verified 09/22/22 10:53 [facility] PFSH: Medical History Anxiety Chronic low back pain Cigarette smoker Claudication in peripheral vascular disease Since [place] 2017 with walking 100 yards or less Dental caries associated with enamel hypomineralization Depression Hx of carotid stenosis Hypertension Presence of stent in coronary artery in patient with coronary artery disease [place] in 2018 with stents x2 Torn rotator cuff Social History Smoking and tobacco status: current every day smoker cigarettes Packs smoked per day: 2 Alcohol intake: current Alcohol intake frequency: few times a week Marital status: Single Number of children: 0 Current occupational status: employed Mental Status Exam MSE Comments: Patient was alert and oriented x3, He was friendly and cooperative on interview and appeared anxious. There was no evidence of any abnormal involuntary motor movements tics or tremors appreciated. His mood was described as anxious. His affect was mood congruent and anxious. There was evidence of some psychomotor slowing. He endorsed no suicidal ideation and was able to contract for safety here on the unit. There was no evidence of homicidal ideation. His speech was normal in regards to rate rhythm and prosody. He denied any auditory or visual hallucinations and did not appear to be responding to internal stimuli. There was no evidence of any delusional thinking. His attention span was fair. His recent and remote memory appeared within normal limits. His thought process was linear logical and goal-directed. His insight was poor. His judgment was poor. His impulse control appeared poor. Vitals/I&O/Wt Last Vital Signs Temp 97.4 F L 09/23/22 06:46 Pulse 68 09/23/22 12:52 Resp 18 09/23/22 06:46 BP 129/89 09/23/22 12:52 Pulse Ox 99 09/23/22 09:11 O2 Del Method 09/22/22 18:22 09/22/22 09/23/22 09/23/22 22:59 06:59 14:59 Intake Total 1011.2 2010.2 Balance 1011.2 2010.2 Weight last 48 hrs Weight 111.584 kg Data NPU 09/22/22 12:03 09/22/22 12:03 A&P Assessment and plan (1) Panic disorder: (2) Alcohol dependence: (3) Benzodiazepine abuse: Plan Patient is a 42-year-old white male admitted with vague suicidal ideation, worsening anxiety and daily panic attacks, along with alcohol dependence currently reporting abrupt discontinuation of benzodiazepines abruptly one month ago. 1. Start Effexor XR 37.5 mg daily to target anxiety. 2.? Encourage individual, group and milieu therapy 3.? Continue q-15 minute check for safety 4.? Recommend sober living treatment at the highest level of care to which the patient is willing to commit. 5/ CIWA protocol. Patient already has been given additional Valium due to high score on CIWA on 09/22/22. Involuntary Hold Information 96 Hour Hold: 96 Hour Involuntary Admission: No Attestations NPU Medical Necessity Statement*: Inpatient hospitalization is medically necessary and clinically appropriate intervention at this time. We will monitor medications and make changes as indicated. Patient will be in the hospital for over 2 midnights. His likely length of stay is 2 to 4 days. Coding Level of Care Code New Pt Acute Polysomnography Technician for Adam Adair Patient Type New History Problem Focused Exam Problem Focused Medical Decision Making Straight Forward Diagnoses Panic disorder F41.0 Alcohol dependence F10.20 Benzodiazepine abuse F13.10
[2022-09-23] MEDS: OLANZapine 5 mg ODT PO ×2 (15:49→20:44)
--- NOTE | 2022-09-23 15:50 | PC.NURSE ---
PRN Med Admit Administered zyprexa 5 mg ODT due to patient clenching fists because, the ativan just didn't kick it. I feel like I'm about to jump out of my skin. Just give me a placebo pill or somethin.
[2022-09-23] MEDS: venlafaxine ER (24HR) 37.5 mg Capsule PO (16:38)
[2022-09-23] MEDS: atorvastatin 40 mg Tablet PO (20:38)
[2022-09-24] MEDS: LORazepam 2 mg Tablet PO ×5 (02:12→18:09)
[2022-09-24 06:00] VITALS: RESP 16
--- NOTE | 2022-09-24 07:35 | PC.NURSE ---
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 Patient scored 10 on CIWA and ativan 2mg given per protocol.
[2022-09-24] MEDS: cloNIDine 0.1 mg Tablet PO ×3 (08:21→20:30)
[2022-09-24] MEDS: thiamine 100 mg Tablet PO (08:21)
[2022-09-24] MEDS: folic acid 1 mg Tablet PO (08:21)
[2022-09-24] MEDS: aspirin 81 mg EC Tablet PO (08:21)
[2022-09-24] MEDS: hydroCHLOROthiazide 25 mg Tablet PO (08:22)
[2022-09-24] MEDS: venlafaxine ER (24HR) 37.5 mg Capsule PO (08:22)
[2022-09-24] MEDS: multivitamin therapeutic Tablet 1 TAB PO (08:22)
[2022-09-24] MEDS: gabapentin 300 mg Capsule PO ×3 (08:22→20:30)
[2022-09-24] MEDS: nicotine 21 mg Patch 1 PATCH TRANSDERMA (10:13)
[2022-09-24 14:00] VITALS: RESP 18
--- NOTE | 2022-09-24 17:54 | W.PM.NPUPNS ---
Subjective NPU Subjective: The patient is a 42-year-old white male admitted with suicidal ideation depression and panic attacks. The patient had reported less withdrawal symptoms at this time. He continued to isolate himself on the milieu. He reported no side effects from the gabapentin. 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 He reported no feelings of hopelessness. He reported no side effects from his Effexor at this time. Mental Status Exam MSE Comments: Patient was alert and oriented x3, with a shelley complexion. He was friendly and cooperative on interview and appeared anxious. There was no evidence of any abnormal involuntary motor movements tics or tremors appreciated. His mood was described as anxious. His affect was mood congruent and anxious. There was evidence of some psychomotor slowing. He endorsed no suicidal ideation and was able to contract for safety here on the unit. There was no evidence of homicidal ideation. His speech was normal in regards to rate rhythm and prosody. He denied any auditory or visual hallucinations and did not appear to be responding to internal stimuli. There was no evidence of any delusional thinking. His attention span was fair. His recent and remote memory appeared within normal limits. His thought process was linear logical and goal-directed. His insight was poor. His judgment was poor. His impulse control appeared poor. Vitals/I&O/Wt Last Vital Signs Temp 98.4 F 09/23/22 22:00 Pulse 86 09/23/22 22:00 Resp 18 09/24/22 14:00 BP 129/86 09/23/22 22:00 Pulse Ox 99 09/23/22 22:00 O2 Del Method 09/23/22 22:00 Data NPU 09/22/22 12:03 09/22/22 12:03 A&P Assessment and plan (1) Panic disorder: (2) Alcohol dependence: (3) Benzodiazepine abuse: Plan Patient is a 42-year-old white male admitted with vague suicidal ideation, worsening anxiety and daily panic attacks, along with alcohol dependence currently reporting abrupt discontinuation of benzodiazepines abruptly one month ago. 1. Increase effexor xr to 75 mg daily to target anxiety. 2.? Encourage individual, group and milieu therapy 3.? Continue q-15 minute check for safety 4.? Recommend sober living treatment at the highest level of care to which the patient is willing to commit. 5. Begin Klonopin 1mg tid with patient informed of plan for a reduction of .5mg every two weeks until the patient is at 1mg at which time it will be reduced by .25mg weekly until discontinuation. Involuntary Hold Information 96 Hour Hold: 96 Hour Involuntary Admission: No Attestations NPU Medical Necessity Statement*: Inpatient hospitalization is medically necessary and clinically appropriate intervention at this time. We will monitor medications and make changes as indicated. Patient will be in the hospital for over 2 midnights. His likely length of stay is 1-2 days. Coding Level of Care Code Established Pt Acute Net Web Application Developer for Adam Adair Patient Type Established History Problem Focused Exam Problem Focused Medical Decision Making Straight Forward Diagnoses Panic disorder F41.0 Alcohol dependence F10.20 Benzodiazepine abuse F13.10
[2022-09-24] MEDS: atorvastatin 40 mg Tablet PO (20:29)
[2022-09-24 20:30] VITALS: BP 110/69
[2022-09-24] MEDS: CLONazepam 1 mg Tablet PO (20:30)
[2022-09-24 22:00] VITALS: BP 110/69; PULSE 117; RESP 17; TEMP 36.5; O2SAT 97
[2022-09-25] MEDS: LORazepam 2 mg Tablet PO ×2 (01:17→07:36)
[2022-09-25 06:00] VITALS: BP 132/95; PULSE 94; RESP 17; TEMP 36.4; O2SAT 96
[2022-09-25 08:29] VITALS: BP 132/95
[2022-09-25] MEDS: venlafaxine ER (24HR) 75 mg Capsule PO (08:29)
[2022-09-25] MEDS: cloNIDine 0.1 mg Tablet PO (08:29)
[2022-09-25] MEDS: gabapentin 300 mg Capsule PO (08:29)
[2022-09-25] MEDS: lisinopril 20 mg Tablet PO (08:29)
[2022-09-25] MEDS: thiamine 100 mg Tablet PO (08:29)
[2022-09-25] MEDS: aspirin 81 mg EC Tablet PO (08:29)
[2022-09-25] MEDS: folic acid 1 mg Tablet PO (08:29)
[2022-09-25] MEDS: hydroCHLOROthiazide 25 mg Tablet PO (08:29)
[2022-09-25] MEDS: nicotine 21 mg Patch 1 PATCH TRANSDERMA (08:29)
[2022-09-25] MEDS: multivitamin therapeutic Tablet 1 TAB PO (08:29)
[2022-09-25] MEDS: CLONazepam 1 mg Tablet PO (08:29)
--- NOTE | 2022-09-25 09:15 | P.NPUDS_ITS ---
Diagnoses at Discharge Discharge Diagnosis (1) Panic disorder: Status: Acute (2) Alcohol dependence: Status: Acute (3) Benzodiazepine abuse: Status: Acute Reason for Visit Reason for Visit: Suicidal ideation Brief History: History of Present Illness Rudy Crawford is a 42 year old male who had presented to his primary care nurse on 09/22/2020 2 in the morning requesting treatment for alcohol withdrawal.? He reports that he wishes to stop his consumption of alcohol and stated that he was having withdrawal symptoms as he had reported having last consumed alcohol on the night of 09/21/2022.? He had reported having consumed a gallon of fireball whiskey and reports having consumed a case of beer on a daily basis.? He reports his consumption of alcohol has been increasing since he was taken abruptly off of his prescribed Klonopin of 2 mg/day.? He had reported a previous history of panic attacks and considerable anxiety that had been worsening his cardiac problems.? He states that he had not been prescribed Klonopin for over a month.? He endorses a past history of withdrawal seizures although it is uncertain as to whether that was associated with withdrawal from benzodiazepines or alcohol.? He had acknowledged no depression but states that his panic attacks have been more frequent over the past few months.? He reports an extended history of chest pain shortness of breath difficulty swallowing and feeling like he is going to .? He reports that these panic attacks occur without triggers frequently. Current medications: gabapentin 300mg bid, hydrochlorothiazide/lisinopril: 25mg/20mg, hydroxyzine 25mg bid Previous admission on 06/22/2022 at [facility]: Rudy Crawford is a 42 year old single white male with a history of panic attacks coronary artery disease and hypertension who reports to the emergency department with suicidal ideation with a plan to jump off of a bridge.? He had reported that he had been feeling more depressed and reported uncontrolled anxiety over the past 3 months since he had ran out of his Klonopin 1 mg twice a day.? He had reported that he has had chronic panic attacks for many years with unknown triggered panic attacks lasting approximately 40 minutes with associated chest pain shortness of breath numbing and tingling in his fingers and difficulty with breathing.? He reports that his panic attacks have led him to the emergency department multiple times with complaints of chest pain.? He reports that he had a heart attack a few years ago and he has had these panic attacks since that time.? The patient reports being burdened by anxiety over the past few months.? He reports that he had been unable to receive his Klonopin in [place], [place] where he had moved.? He reports that he had recently moved back to the area and had not been able to see his primary care physician yet to get back on his Klonopin.? The patient had reported diminished energy low motivation and depressed mood for the past month.? He had endorsed having suicidal thoughts.? He denied any psychotic symptoms.? He denied any history of manic symptoms.? He had reported a long history of chronic worry since his heart attack occurred. Past psychiatric history: Patient has a history of 1 inpatient hospitalization 2 years ago for suicidal ideation at [facility] in [facility].? He had reported no history of psychotherapy but reports a history of having been treated for panic attacks and depression with medication trials on Lexapro and xanax.? He also reported a history of having been treated for opioid abuse with a history of having been in methadone clinic for a few years having last used methadone 6 years ago. Medical history: Chronic lower back pain peripheral vascular disease with claudication history of carotid stenosis history of hypertension, HTN Surgical history he has a history of placement of stent in the coronary artery he has a history of repair of a torn rotator cuff Allergies: Toradol Medications: Klonopin 1 mg twice a day aspirin 81 mg in the morning clonidine 0.1 mg twice a day nitroglycerin as needed Drug and alcohol history: He reports having begun use of opiates at the age of [age].? He had reported last use of opiates for treating pain few days ago.? He had reported a past history of methadone treatment but reports no substance abuse inpatient or rehabilitation in the past.? He had reported a past history of alcohol abuse but reports that he has not been drinking recently.? He denies any history of benzodiazepine misuse. Family psychiatric history: alcohol abuse-father Social History: Patient was born and raised in [place].? He is currently living in [facility].? He has never been and has no children.? He was raised by his biological parents and is the youngest of 5.? 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 He denies any significant history of trauma.? He denies any history of legal issues. Update: Patient had endorsed recently having been hospitalized at [facility] in late July in an attempt to help with detoxification off of benzodiazepines and alcohol.? He reports that he had left and intensive inpatient rehabilitation facility in [place] in early August 2022.? His living situation is also changed he is currently staying with a friend near [facility]. Hospital Course Hospital Course Discharge Summary: During the hospitalization, patient had routine laboratory studies which were within normal limits except for few outliers. Additionally there was a general medical evaluation which was also within normal limits and revealed no new acute processes. He did show evidence of alcohol withdrawal though 72 hours had passed since his last use of alcohol. He had been given as needed Ativan, and Valium to manage alcohol withdrawal symptoms during his hospital stay. At the time of discharge, lethality was denied and psychosis was resolving. Mood and anxiety were well managed. Patient endorsed a plan to avoid all drugs of abuse and follow-up with the aftercare recommendations of the treatment team. Patient was evaluated and deemed to be absent credible lethality, and had achieved the maximum benefit from an inpatient hospitalization, so was discharged. The patient had revealed a significant problem at his previous hospitalization here with panic attacks. The patient had reported that he had been prescribed Klonopin and it was confirmed to be 3 mg a day. He reports that his Klonopin was abruptly discontinued approximately 1 month ago. He had reported significant alcohol abuse in efforts to manage his anxiety but admitted that he had had significant difficulties with managing his anxiety in the absence of benzodiazepines. Patient during his hospital stay had been informed of a plan to slowly taper the Klonopin instead and I discussed with him a long- term plan of managing anxiety using Effexor which will be titrated upwards while he was in inpatient treatment at the [facility]. Involuntary Hold Information 96 Hour Hold: 96 Hour Involuntary Admission: No Mental Status Exam MSE Comments: Patient was alert and oriented x3, with a shelley complexion. He was friendly and cooperative on interview and appeared anxious. There was no evidence of any abnormal involuntary motor movements tics or tremors appreciated. His mood was described as nervous. His affect was mood congruent and anxious. There was no evidence of some psychomotor slowing. He endorsed no suicidal ideation and was able to contract for safety here on the unit. There was no evidence of homicidal ideation. His speech was normal in regards to rate rhythm and prosody. He denied any auditory or visual hallucinations and did not appear to be responding to internal stimuli. There was no evidence of any delusional thinking. His attention span was fair. His recent and remote memory appeared within normal limits. His thought process was linear logical and goal- directed. His insight was limited. His judgment was fair. His impulse control appeared poor. Discharge Data Studies Completed and Pending: Laboratory Results WBC 9.3 10^3/uL (4.0- 10.0) 09/22/22 12:03 RBC 5.34 10^6/uL (4.1 -5.3) H 09/22/22 12:03 Hgb 16.6 g/dL (11.7-1 6.6) 09/22/22 12:03 Hct 47.6 % (42.0-52.0 ) 09/22/22 12:03 MCV 89.1 fl (80-94) 09/22/22 12:03 MCH 31.1 pg (28.0-34. 0) 09/22/22 12:03 MCHC 34.9 g/dL (30.0-3 6.0) 09/22/22 12:03 RDW 11.9 % (12.1-15.1 ) L 09/22/22 12:03 Plt Count 301 10^3/cmm (130 -400) 09/22/22 12:03 MPV 8.0 fL (7.4-10.4) 09/22/22 12:03 Neut % (Auto) 51.9 % 09/22/22 12:03 Lymph % (Auto) 39.1 % 09/22/22 12:03 Baker % (Auto) 6.1 % 09/22/22 12:03 Eos % (Auto) 1.7 % 09/22/22 12:03 Baso % (Auto) 0.8 % 09/22/22 12:03 Neut # (Auto) 4.81 10^3/uL (1.8 -7.7) 09/22/22 12:03 Lymph # (Auto) 3.6 10^3/uL (0.8- 4.8) 09/22/22 12:03 Baker # (Auto) 0.6 10^3/uL (0.2- 0.9) 09/22/22 12:03 Eos # (Auto) 0.2 10^3/uL (0.0- 0.8) 09/22/22 12:03 Baso # (Auto) 0.1 10^3/uL (0.0- 0.1) 09/22/22 12:03 Nucleated RBC % (a uto) 0 % 09/22/22 12:03 Nucleated RBCs # 0.0 /100WBC 09/22/22 12:03 Sodium 136 mmol/L (136-1 45) 09/22/22 12:03 Potassium 4.1 mmol/L (3.5-5 .1) 09/22/22 12:03 Chloride 103 mmol/L (98-10 7) 09/22/22 12:03 Carbon Dioxide 24 mmol/L (22-29) 09/22/22 12:03 Anion Gap 13.1 (5-19) 09/22/22 12:03 BUN 11 mg/dL (6-20) 09/22/22 12:03 Creatinine 0.7 mg/dL (0.7-1. 2) 09/22/22 12:03 GFR Calculation 123.1 mL/min (90- 130) 09/22/22 12:03 Glucose 88 mg/dL (65-115) 09/22/22 12:03 Calculated Osmolal ity 281 mOsm/kg (285- 295) L 09/22/22 12:03 Calcium 9.5 mg/dL (8.5-10 .5) 09/22/22 12:03 Magnesium 1.9 mg/dL (1.7-2. 3) 09/22/22 12:03 Total Bilirubin 0.4 mg/dL (0.15-1 .2) 09/22/22 12:03 AST 30 U/L (0-40) 09/22/22 12:03 ALT 43 U/L (0-41) H 09/22/22 12:03 Alkaline Phosphata se 82 U/L (40-130) 09/22/22 12:03 Total Protein 7.6 g/dL (6.6-8.7 ) 09/22/22 12:03 Albumin 4.3 g/dL (3.5-5.2 ) 09/22/22 12:03 Globulin 3.3 g/dL (1.3-4.6 ) 09/22/22 12:03 TSH 1.40 uIU/mL (0.27 -4.20) 09/22/22 12:03 Urine Color Yellow (Yellow) 09/22/22 11:59 Urine Appearance Clear (CLEAR) 09/22/22 11:59 Urine pH 7 (5-7) 09/22/22 11:59 Ur Specific Gravit y 1.010 (1.005-1.0 30) 09/22/22 11:59 Urine Protein Neg (Negative) 09/22/22 11:59 Urine Glucose (UA) 2+ (Normal) H 09/22/22 11:59 Urine Ketones Negative (Negati ve) 09/22/22 11:59 Urine Blood Neg (Negative) 09/22/22 11:59 Urine Nitrate Negative (Negati ve) 09/22/22 11:59 Urine Bilirubin Neg (Negative) 09/22/22 11:59 Urine Urobilinogen Norm mg/dL (Negat rafy) 09/22/22 11:59 Ur Leukocyte Devi ase Negative (Negati ve) 09/22/22 11:59 Salicylates < 0.3 mg/dL (3-10 ) L 09/22/22 12:03 Urine Opiates Scre en Negative ng/mL (N egative) 09/22/22 11:59 Acetaminophen < 5.0 ug/mL (10-3 0) L 09/22/22 12:03 Ur Barbiturates Sc reen Negative ng/mL (N egative) 09/22/22 11:59 Ur Phencyclidine S crn Negative ng/mL (N egative) 09/22/22 11:59 Ur Amphetamines Sc reen Negative ng/mL (N egative) 09/22/22 11:59 U Benzodiazepines Scrn Positive ng/mL (N egative) H 09/22/22 11:59 Urine Cocaine Scre en Negative ng/mL (N egative) 09/22/22 11:59 U Marijuana (THC) Screen Negative ng/mL (N egative) 09/22/22 11:59 Ethyl Alcohol < 10 mg/dL (0-10) 09/22/22 12:03 SARS-CoV-2 Ag (Rap id) negative (Negati ve) 09/22/22 14:10 Vitals: Last Vital Signs Temp 97.6 F 09/25/22 06:00 Pulse 94 09/25/22 06:00 Resp 17 09/25/22 06:00 BP 132/95 09/25/22 08:29 Pulse Ox 96 09/25/22 06:00 O2 Del Method 09/25/22 06:00 Discharge Plan Discharge Patient Disposition: Home Condition: Stable Prescriptions: New gabapentin 300 mg Capsule 300 mg PO TID 30 Days Qty: 90 1RF atorvastatin 40 mg Tablet 40 mg PO BEDTIME 30 Days Qty: 30 1RF aspirin 81 mg Tablet,Delayed Release (Dr/Ec) 81 mg PO DAILY 30 Days Qty: 30 1RF clonidine HCl 0.1 mg Tablet 0.1 mg PO TID 30 Days Qty: 90 1RF venlafaxine 75 mg Capsule,Extended Release 24hr 75 mg PO DAILY 15 Days Qty: 15 1RF clonazepam 1 mg Tablet 1 mg PO TID 15 Days Qty: 45 1RF folic acid 1 mg Tablet 1 mg PO DAILY 30 Days Qty: 30 1RF Thera 400 mcg Tablet 1 tab PO DAILY 30 Days Qty: 30 1RF Vitamin B-1 (mononitrate) 100 mg Tablet 100 mg PO DAILY 30 Days Qty: 30 1RF Continued lisinopril 20 mg Tablet 20 mg PO DAILY 30 Days Qty: 30 1RF hydrochlorothiazide 25 mg Tablet 25 mg PO DAILY 30 Days Qty: 30 1RF Discontinued hydroxyzine pamoate 50 mg capsule 50 mg PO QID PRN (Reason: Anxiety) gabapentin 300 mg capsule 300 mg PO BID Discharge Orders: Discharge Order (Routine); Ordered 09/25/22 Ordered By: Keny Andrews Referrals: [facility] [Other] [employer] [Other] (Contact Nicole Villareal for assistance with insurance. ) [facility] [Outside] Nilesh Hutchinson MD [Physician] - Discharge Diet: Advance as tolerated Discharge Activity: Resume usual activity Patient Instructions: Opioid Safety Activity Restrictions/Additional Instructions: The patient with combined benzodiazepine use and alcohol dependence would benefit from a slower taper of Klonopin. The recommendation is as followed: 1) continue klonopin at 3mg/day for 2 weeks then decrease by .5mg every two weeks until the patient is on 1mg per day. At that time, the recommendation is to decrease klonopin by .25mg per week for 4 weeks until discontinuation. Clearly, the patient will need to be monitored for potential use of alcohol with the klonopin. I would recommend titration upward on Effexor xr by another 75mg after 1-2 weeks to a dose of 150mg xr daily. Discharge Attestations [facility] Time Spent in Discharge Care*: less than 30 min Specific Discharge Activities: Specific discharge activities: educating patient, discussing with foster care case manager/social workers/dc planners, documenting/other paperwork and evaluating patient/reviewing data Coding Level of Care Code Established Pt Acute Chg FW DC note Patient Type Established History Problem Focused Exam Problem Focused Medical Decision Making Straight Forward Diagnoses Panic disorder F41.0 Alcohol dependence F10.20 Benzodiazepine abuse F13.10
[2022-09-25 10:27] VITALS: BP 128/74; PULSE 108; RESP 18; O2SAT 97
--- NOTE | 2022-09-25 11:09 | PC.NURSE ---
Staff reviewed discharge information with the pt. He verbalized his understanding. He said he was ready to go to [facility]. Awaiting medication. Pharmacy had difficulty getting one prescription (clonazepam) approved by Medicaid. The physician is wanting this drug to be taped over the next two weeks to help prevent the pt from having adverse reaction due to sudden stoppage of the medication. This was shared with pharmacy and relayed to Medicaid.
--- NOTE | 2022-09-25 12:01 | PM.MISC ---
Miscellaneous Note Purpose of Documentation: hospitalist follow up Note: no acute medical issues Patient planned for [facility] Patient has been scoring 12-14 on CIWA score, adequately controlled with Ativan. Hospitalist to sign off
== END 2022-09-25 11:29 | disposition home or self-care (01) | DRG 897 ==
LOC: ER 17:39 → NP 17:57
PROVIDERS: Admitting Provider Psychiatry & Neurology Psychiatry; Emergency Provider Emergency Medicine; Visit Provider Psychiatry & Neurology Psychiatry
DX: F10.239 Alcohol dependence with withdrawal, unspecified (principal); F41.0 Panic disorder [episodic paroxysmal anxiety]; I25.10 Atherosclerotic heart disease of native coronary artery without angina pectoris; Z95.5 Presence of coronary angioplasty implant and graft; I10 Essential (primary) hypertension; T42.4X6A Underdosing of benzodiazepines, initial encounter; Z91.128 Patient's intentional underdosing of medication regimen for other reason; F32.A Depression, unspecified; G89.29 Other chronic pain; M54.50 Low back pain, unspecified; I73.9 Peripheral vascular disease, unspecified; F17.210 Nicotine dependence, cigarettes, uncomplicated; F13.10 Sedative, hypnotic or anxiolytic abuse, uncomplicated; E66.9 Obesity, unspecified; Z68.37 Body mass index [BMI] 37.0-37.9, adult; I16.0 Hypertensive urgency
CPT/HCPCS: 36415; 80053; 80306; 80307; 81003; 83735; 84443; 85025; 87426; 96361; 96372; 96374; 97150; 97165; 99285; J2060; J3411; J3486; J3490; J7030

== ENCOUNTER 2022-09-28 18:11 | Emergency (ER) | payer BC, MEDICAID, SELFPAY ==
[2022-09-28] VITALS (15 sets, daily range): BP systolic 119–135; BP diastolic 74–96; PULSE 80–105; RESP 14–24; TEMP 36.9; O2SAT 92–98; BMI 37.4
--- NOTE | 2022-09-28 18:23 | ECG_ITS ---
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 Measurements Intervals [place] Rate: 99 P: 26 SD: 140 QRS: 49 QRSD: 109 T: 47 QT: 346 QTc: 446 Interpretive Statements SINUS RHYTHM POSSIBLE INFERIOR MYOCARDIAL INFARCTION , PROBABLY OLD [30 ms Q WAVE IN II/aVF] Compared to ECG 08/13/2022 18:39:22 Incomplete right bundle-branch block no longer present Myocardial infarct finding still present Electronically Signed On 09-29-2022 9:27:15 AGRICULTURAL TECHNICAL OFFICER by Darya Clark M.D. [email or web address].[employer]/store/OM/[id number]
[2022-09-28] MEDS: fentaNYL 50 mcg/mL INJ 2mL IVP (18:28)
[2022-09-28 18:39] LABS: Basophils # 0.1 10^3/uL (0.0-0.1); Basophils % 0.5 %; Eosinophils # 0.2 10^3/uL (0.0-0.8); Eosinophils % 1.7 %; Hematocrit 51.2 % (42.0-52.0); Hemoglobin 17.4 g/dL (11.7-16.6); Lymphocytes # 4.6 10^3/uL (0.8-4.8); Lymphocytes % 40.3 %; Mean Corpuscular Hemoglobin 31.1 pg (28.0-34.0); Mean Corpuscular Volume 91.6 fl (80-94); Mean Platelet Volume 8.8 fL (7.4-10.4); Monocytes # 0.9 10^3/uL (0.2-0.9); Monocytes % 7.9 %; Neutrophils # 5.64 10^3/uL (1.8-7.7); Nucleated Red Blood Cells % 0 %; Platelet Count 297 10^3/cmm (130-400); Red Blood Count 5.59 10^6/uL (4.1-5.3); Red Cell Distribution Width 12.3 % (12.1-15.1); White Blood Count 11.5 10^3/uL (4.0-10.0)
[2022-09-28 18:55] LABS: Troponin(5th) Baseline 8 ng/L (0-15)
[2022-09-28 19:02] LABS: Alanine Aminotransferase 66 U/L (0-41); Albumin Level 4.5 g/dL (3.5-5.2); Alkaline Phosphatase 90 U/L (40-130); Anion Gap 17.9 (5-19); Aspartate Amino Transferase 42 U/L (0-40); Blood Urea Nitrogen 10 mg/dL (6-20); Carbon Dioxide 24 mmol/L (22-29); Chloride 96 mmol/L (98-107); Globulin 3.3 g/dL (1.3-4.6); Glomerular Filtration Rate 92.1 mL/min (90-130); Glucose 237 mg/dL (65-115); NT Pro B Type Natriuretic Pept 5 pg/mL (0-125); Osmolality Calculated 285 mOsm/kg (285-295); Potassium 3.9 mmol/L (3.5-5.1); Sodium 134 mmol/L (136-145); Total Bilirubin 0.5 mg/dL (0.15-1.2); Total Protein 7.8 g/dL (6.6-8.7)
[2022-09-28 19:03] LABS: Influenza A by IFA negative (Negative); Influenza B by IFA negative (Negative); SARS Covid-2 Antigen negative (Negative)
--- NOTE | 2022-09-28 19:09 | ED_ITS ---
HPI - Chest Pain General: Chief Complaint: Chest Pain Stated Complaint: Chest Pain Time Seen by Provider: 09/28/22 18:14 History of Present Illness: 32 old male presents with left substernal chest pain. Reports that has been going on for 2 days. He reports that today he felt little diaphoretic has some left neck and arm pain. Patient has a history of stents x2 approximately 5 years ago. Patient received 324 aspirin and nitro in route and reports no improvement. Patient reports that he was up coughing all night last night patient reports he has not followed up with striper since his stents. Associated symptoms: Reports diaphoresis; Deny abdominal pain, dyspnea, fever(s), nausea, palpitations or vomiting Review of Systems Const: Reports: diaphoresis; Denies: fever(s) or chills Eyes: Denies: change in vision or eye discomfort Card: Reports: chest pain; Denies: palpitations, irregular heart rhythm or lightheadedness Resp: Reports: non-productive cough; Denies: dyspnea or wheezing GI: Denies: abdominal pain, nausea or vomiting : Denies: flank pain or difficulty urinating Musc: Reports: neck pain; Denies: back pain Skin/Breast: Denies: rash Neuro: Denies: headache(s) or dizziness Psych: Reports: anxiety PFSH ED PFSH: Medical History Anxiety Chronic low back pain Cigarette smoker Claudication in peripheral vascular disease Since [place] 2018 with walking 100 yards or less Dental caries associated with enamel hypomineralization Depression Hx of carotid stenosis Hypertension Presence of stent in coronary artery in patient with coronary artery disease [place] in 2018 with stents x2 Torn rotator cuff Social History Smoking and tobacco status: current every day smoker cigarettes Packs smoked per day: 2 Alcohol intake: current Alcohol intake frequency: few times a week Marital status: Single Number of children: 0 Current occupational status: employed Physical Exam Const: COMMON NORMALS: no acute distress, patient oriented x3 and alert HENMT: COMMON NORMALS: hearing grossly normal bilaterally and Normal external nose present NOSE: Normal external nose present Eye: COMMON NORMALS: Equal, round and reactive pupils present and EOMs intact bilaterally PUPIL: Yes Equal, round and reactive pupils present Chest: COMMONS NORMALS: normal inspection of the chest Resp: COMMON NORMALS: normal respiratory effort, No use of accessory muscles and clear to auscultation bilaterally AUSCULTATION: clear to auscultation bilaterally Cardio: COMMON NORMALS: regular rate and regular rhythm RATE: regular rate RHYTHM: regular rhythm GI: COMMON NORMALS: Soft to palpation and non-tender PALPATION: Yes Soft to palpation Extremity: COMMON NORMALS: normal to inspection, full ROM and capillary refill normal Neuro: COMMON NORMALS: patient oriented x3, moves all extremities and no focal motor deficits SENSORIUM/ORIENTATION: Yes alert Psych: COMMON NORMALS: mental status grossly normal, cooperative and speech normal SPEECH: Yes normal speech Skin: COMMON NORMALS: no rashes or lesions noted and turgor normal GENERAL SKIN EXAM: no rashes or lesions noted and turgor normal Course Vital Signs: Vital signs: Vital Signs Temperature 98.4 F 09/28/22 18:14 Pulse Rate 90 09/28/22 19:30 Respiratory Rate 22 H 09/28/22 19:30 Blood Pressure 129/89 09/28/22 19:30 Pulse Oximetry 97 09/28/22 19:30 Oxygen Delivery Me thod 09/28/22 18:29 MDM - Chest Pain Medical Decision Making Patient is currently residing at rehab facility for alcohol and some mild alcohol withdrawal symptoms. Patient had 2 negative EKGs, negative troponin, negative x-ray. I suspect most of his symptoms were related to some anxiety. I t completely resolved with little bit of Ativan. Patient reports that he is ready be discharged back to [facility]. Patient was stable and discharged home Lab Data 09/28/22 18:00 09/28/22 18:00 Laboratory Results WBC 11.5 10^3/uL (4.0-10.0) H 09/28/22 18:00 RBC 5.59 10^6/uL (4.1-5.3) H 09/28/22 18:00 Hgb 17.4 g/dL (11.7-16.6) H 09/28/22 18:00 Hct 51.2 % (42.0-52.0) 09/28/22 18:00 MCV 91.6 fl (80-94) 09/28/22 18:00 MCH 31.1 pg (28.0-34.0) 09/28/22 18:00 MCHC 34.0 g/dL (30.0-36.0) 09/28/22 18:00 RDW 12.3 % (12.1-15.1) 09/28/22 18:00 Plt Count 297 10^3/cmm (130-400) 09/28/22 18:00 MPV 8.8 fL (7.4-10.4) 09/28/22 18:00 Neut % (Auto) 49.0 % 09/28/22 18:00 Lymph % (Auto) 40.3 % 09/28/22 18:00 Parke % (Auto) 7.9 % 09/28/22 18:00 Eos % (Auto) 1.7 % 09/28/22 18:00 Baso % (Auto) 0.5 % 09/28/22 18:00 Neut # (Auto) 5.64 10^3/uL (1.8-7.7) 09/28/22 18:00 Lymph # (Auto) 4.6 10^3/uL (0.8-4.8) 09/28/22 18:00 Parke # (Auto) 0.9 10^3/uL (0.2-0.9) 09/28/22 18:00 Eos # (Auto) 0.2 10^3/uL (0.0-0.8) 09/28/22 18:00 Baso # (Auto) 0.1 10^3/uL (0.0-0.1) 09/28/22 18:00 Nucleated RBC % (auto) 0 % 09/28/22 18:00 Nucleated RBCs # 0.0 /100WBC 09/28/22 18:00 Sodium 134 mmol/L (136-145) L 09/28/22 18:00 Potassium 3.9 mmol/L (3.5-5.1) 09/28/22 18:00 Chloride 96 mmol/L (98-107) L 09/28/22 18:00 Carbon Dioxide 24 mmol/L (22-29) 09/28/22 18:00 Anion Gap 17.9 (5-19) 09/28/22 18:00 BUN 10 mg/dL (6-20) 09/28/22 18:00 Creatinine 0.9 mg/dL (0.7-1.2) 09/28/22 18:00 GFR Calculation 92.1 mL/min (90-130) 09/28/22 18:00 Glucose 237 mg/dL (65-115) H 09/28/22 18:00 Calculated Osmolality 285 mOsm/kg (285-295) 09/28/22 18:00 Calcium 10.0 mg/dL (8.5-10.5) 09/28/22 18:00 Total Bilirubin 0.5 mg/dL (0.15-1.2) 09/28/22 18:00 AST 42 U/L (0-40) H 09/28/22 18:00 ALT 66 U/L (0-41) H 09/28/22 18:00 Alkaline Phosphatase 90 U/L (40-130) 09/28/22 18:00 Troponin T Baseline 8 ng/L (0-15) 09/28/22 18:00 Troponin T 120 Minute 7.48 ng/L (0-15) 09/28/22 20:15 Delta Troponin T -0.52 ABS# (0-10) L 09/28/22 20:15 NT-Pro-B Natriuret Pep 5 pg/mL (0-125) 09/28/22 18:00 Total Protein 7.8 g/dL (6.6-8.7) 09/28/22 18:00 Albumin 4.5 g/dL (3.5-5.2) 09/28/22 18:00 Globulin 3.3 g/dL (1.3-4.6) 09/28/22 18:00 Influenza Type A Ag negative (Negative) 09/28/22 18:35 Influenza Type B Ag negative (Negative) 09/28/22 18:35 SARS-CoV-2 Ag (Rapid) negative (Negative) 09/28/22 18:35 Discharge Plan Discharge Patient Disposition: Home Clinical Impression: Anxiety, Atypical chest pain Condition: Stable Prescriptions: No Action gabapentin 300 mg Capsule 300 mg PO TID 30 Days Qty: 90 1RF atorvastatin 40 mg Tablet 40 mg PO BEDTIME 30 Days Qty: 30 1RF aspirin 81 mg Tablet,Delayed Release (Dr/Ec) 81 mg PO DAILY 30 Days Qty: 30 1RF clonidine HCl 0.1 mg Tablet 0.1 mg PO TID 30 Days Qty: 90 1RF venlafaxine 75 mg Capsule,Extended Release 24hr 75 mg PO DAILY 15 Days Qty: 15 1RF clonazepam 1 mg Tablet 1 mg PO TID 15 Days Qty: 45 1RF folic acid 1 mg Tablet 1 mg PO DAILY 30 Days Qty: 30 1RF Thera 400 mcg Tablet 1 tab PO DAILY 30 Days Qty: 30 1RF Vitamin B-1 (mononitrate) 100 mg Tablet 100 mg PO DAILY 30 Days Qty: 30 1RF lisinopril 20 mg Tablet 20 mg PO DAILY 30 Days Qty: 30 1RF hydrochlorothiazide 25 mg Tablet 25 mg PO DAILY 30 Days Qty: 30 1RF Discharge Orders: Discharge ED (Routine); Ordered 09/28/22 Ordered By: Bryant Rebollar Discharge Diet: Usual diet Discharge Activity: Resume usual activity Patient Instructions: Alcohol Withdrawal (DC), Anxiety (ED), Opioid Safety, Pain Management Activity Restrictions/Additional Instructions: Follow-up with behavioral health and with your primary care provider as needed Coding Level of Care Code ED Digital Service Engineer for Adam Fwd Exam Comprehensive
--- NOTE | 2022-09-28 20:00 | PC.NURSE ---
C/O chest pain, states pain meds worked earlier but pain has returned. Physician informed
--- NOTE | 2022-09-28 20:35 | ECG_ITS ---
[facility] Test Date: 2022-09-28 Pat Name: Rudy Crawford Department: Room: Gender: Male Optometric Assistant: : 1980 Requested By: Bryant Rebollar Order Number: [id number] Erika MD: Darya Clark M.D. Measurements Intervals [place] Rate: 79 P: 30 ID: [id number] QRS: 33 QRSD: 117 T: 52 QT: 382 QTc: 440 Interpretive Statements SINUS RHYTHM MODERATE INTRAVENTRICULAR CONDUCTION DELAY [110+ ms QRS DURATION] Compared to ECG 09/28/2022 18:23:05 Intraventricular conduction delay now present Myocardial infarct finding no longer present Electronically Signed On 09-29-2022 20:43:14 HOT WIRE GLASS TUBE CUTTER by Darya Clark M.D. [email or web address] (acquired by [employer] in 2014).Pixwaysprovidence tarzana medical centerYotomo/store/OM/[id number]/ecg/[id number]
[2022-09-28 20:47] LABS: Troponin 5 2HR 7.48 ng/L (0-15)
[2022-09-28 20:54] LABS: Troponin 5 2HR Delta -0.52 ABS# (0-10)
[2022-09-28] MEDS: LORazepam 1 mg Tablet PO (21:02)
== END 2022-09-28 21:43 | disposition home or self-care (01) ==
PROVIDERS: Emergency Provider Student in an Organized Health Care Education/Training Program
DX: R07.89 Other chest pain (principal); F41.9 Anxiety disorder, unspecified; Z79.82 Long term (current) use of aspirin; Z20.822 Contact with and (suspected) exposure to COVID-19; I10 Essential (primary) hypertension; I25.10 Atherosclerotic heart disease of native coronary artery without angina pectoris; I25.2 Old myocardial infarction; F17.210 Nicotine dependence, cigarettes, uncomplicated
CPT/HCPCS: 80053; 83880; 84484; 85025; 87426; 87804; 93005; 96374; 99285; J3010

== ENCOUNTER 2022-10-29 10:58 | Emergency (ER) | payer BC, MEDICAID, SELFPAY ==
--- NOTE | 2022-10-29 11:20 | XR_ITS ---
WS: [id number] PORTABLE CHEST HISTORY: Chest pain. COMPARISON: 07/27/2022 Lungs are clear and well expanded. No pleural effusion or pneumothorax. Cardiac size: Normal. Mediastinum/Aorta: Normal mediastinum. No osseous abnormality seen. XR/XR chest 1V portable [id number] IMPRESSION: Unremarkable portable chest.
--- NOTE | 2022-10-29 11:20 | ECG_ITS ---
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 Measurements Intervals [place] Rate: 100 P: 19 MD: 135 QRS: 38 QRSD: 113 T: 50 QT: 340 QTc: 440 Interpretive Statements SINUS TACHYCARDIA MODERATE INTRAVENTRICULAR CONDUCTION DELAY [110+ ms QRS DURATION] ABNORMAL RHYTHM ECG Compared to ECG 09/28/2022 20:35:24 Sinus rhythm no longer present Electronically Signed On 10-29-2022 12:52:26 GAUGE AND INSTRUMENT INSPECTOR by Shannan Mendoza M.D. [email or web address] point mature adult care unitHollywood Interactive Groupcoshocton regional medical centerWITOI/store/OM/[id number]/ecg/[id number]
[2022-10-29 11:21] VITALS: BP 130/89; PULSE 103; RESP 19; TEMP 36.4; O2SAT 97; BMI 38.0
[2022-10-29 11:38] VITALS: BP 120/82; PULSE 99; RESP 16; O2SAT 96
[2022-10-29 11:39] LABS: Basophils # 0.1 10^3/uL (0.0-0.1); Basophils % 0.9 %; Eosinophils # 0.1 10^3/uL (0.0-0.8); Eosinophils % 1.3 %; Hematocrit 49.8 % (42.0-52.0); Hemoglobin 16.9 g/dL (11.7-16.6); Lymphocytes # 3.8 10^3/uL (0.8-4.8); Lymphocytes % 39.9 %; Mean Corpuscular HGB Conc 33.9 g/dL (30.0-36.0); Mean Corpuscular Hemoglobin 30.9 pg (28.0-34.0); Mean Platelet Volume 8.3 fL (7.4-10.4); Monocytes # 0.7 10^3/uL (0.2-0.9); Monocytes % 7.8 %; Neutrophils # 4.66 10^3/uL (1.8-7.7); Neutrophils % 49.2 %; Nucleated Red Blood Cells % 0 %; Platelet Count 328 10^3/cmm (130-400); Red Blood Count 5.47 10^6/uL (4.1-5.3); Red Cell Distribution Width 12.4 % (12.1-15.1); White Blood Count 9.5 10^3/uL (4.0-10.0)
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
--- NOTE | 2022-10-29 11:56 | PC.PHAR ---
pt states he takes care of his own medications-pt states he hasnt taken his lipitor 40mg hs for about 2 weeks states he forgets to take it-pt states he has been out of his effexor xr 75mg daily for about 2 weeks ext med history shows last filled 09/25/22 15d/s-pt states he doesnt take gabapentin 300mg tid filled 09/25/22 30d/s and hydroxyzine pamoate 50mg q6h prn filled 09/05/22 30d/s-
[2022-10-29 12:00] LABS: Troponin(5th) Baseline 6 ng/L (0-15)
[2022-10-29 12:03] LABS: Alanine Aminotransferase 65 U/L (0-41); Albumin Level 4.4 g/dL (3.5-5.2); Alkaline Phosphatase 87 U/L (40-130); Anion Gap 19.4 (5-19); Aspartate Amino Transferase 38 U/L (0-40); Blood Urea Nitrogen 10 mg/dL (6-20); Calcium 9.4 mg/dL (8.5-10.5); Carbon Dioxide 22 mmol/L (22-29); Chloride 99 mmol/L (98-107); Creatinine Clr Calc Pharmacy 166.2842; Globulin 3.1 g/dL (1.3-4.6); Glomerular Filtration Rate 123.1 mL/min (90-130); Glucose 190 mg/dL (65-115); Osmolality Calculated 288 mOsm/kg (285-295); Potassium 3.4 mmol/L (3.5-5.1); Sodium 137 mmol/L (136-145); Total Bilirubin 0.2 mg/dL (0.15-1.2); Total Protein 7.5 g/dL (6.6-8.7)
[2022-10-29] MEDS: aspirin 81 mg Chew Tablet 324 MG PO (12:25)
[2022-10-29 12:26] VITALS: RESP 16; O2SAT 97
[2022-10-29] MEDS: morphine 4 mg/mL SDV 1 mL IVP (12:26)
[2022-10-29 12:46] VITALS: BP 123/86; PULSE 88; RESP 16; O2SAT 93
--- NOTE | 2022-10-29 13:20 | ECG_ITS ---
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 Measurements Intervals [place] Rate: 82 P: 42 MA: 185 QRS: 46 QRSD: 126 T: 44 QT: 366 QTc: 429 Interpretive Statements SINUS RHYTHM MODERATE INTRAVENTRICULAR CONDUCTION DELAY [110+ ms QRS DURATION] Compared to ECG 10/29/2022 11:25:54 Sinus tachycardia no longer present Electronically Signed On 10-29-2022 21:08:54 ENVIRONMENTAL SERVICES DIRECTOR by Shannan Mendoza M.D. [email or web address] Technologiesbrotman medical centerTwoodo/store/OM/[id number]
[2022-10-29] MEDS: LORazepam 2 mg/mL INJ 1 mL 1 MG IVP (13:34)
[2022-10-29 13:53] LABS: Troponin 5 2HR 6.98 ng/L (0-15)
[2022-10-29 13:58] VITALS: BP 173/106; PULSE 85; RESP 16; O2SAT 93
[2022-10-29 14:15] LABS: Troponin 5 2HR Delta 0.98 ABS# (0-10)
== END 2022-10-29 14:39 | disposition home or self-care (01) ==
PROVIDERS: Emergency Provider Emergency Medicine; PCP Family Medicine Adult Medicine
DX: F41.1 Generalized anxiety disorder (principal); F41.0 Panic disorder [episodic paroxysmal anxiety]; M62.838 Other muscle spasm; I10 Essential (primary) hypertension; I25.2 Old myocardial infarction
CPT/HCPCS: 71045; 80053; 84484; 85025; 93005; 96374; 96375; 99285; J2060; J2270

== ENCOUNTER 2023-02-16 10:21 | Emergency (ER) | payer BC, MEDICAID, SELFPAY ==
[2023-02-16 10:26] VITALS: BP 145/105; PULSE 92; RESP 16; TEMP 36.4; O2SAT 96
--- NOTE | 2023-02-16 10:30 | XRR_ITS ---
PROCEDURE INFORMATION: Exam: XR Chest Exam date and time: 02/16/2023 10:45 AM Age: 43 years old Clinical indication: Pain; Angina pectoris; Additional info: Chest pain TECHNIQUE: Imaging protocol: Radiologic exam of the chest. Views: 1 view. COMPARISON: CR XR chest 1V portable [id number] 10/29/2022 11:39 AM FINDINGS: Lungs: Unremarkable. No consolidation. Pleural spaces: Unremarkable. No pleural effusion. No pneumothorax. Heart/Mediastinum: Unremarkable. No cardiomegaly. Bones/joints: Unremarkable. XR/XR chest 1V portable [id number] IMPRESSION: No acute findings.
--- NOTE | 2023-02-16 10:30 | ECG_ITS ---
[facility] Test Date: 2023-02-16 Pat Name: Rudy Crawford Department: Room: Gender: Male Content Architect: : 1980 Requested By: Anil Lala Order Number: [id number] Erika MD: Darya Clark M.D. Measurements Intervals [place] Rate: 96 P: 27 FL: 174 QRS: 44 QRSD: 126 T: 66 QT: 358 QTc: 453 Interpretive Statements SINUS RHYTHM POSSIBLE RIGHT VENTRICULAR CONDUCTION DELAY [RSR (QR) IN V1/V2] INTERPRETATION BASED ON A DEFAULT AGE OF 40 YEARS Compared to ECG 10/29/2022 13:27:01 Intraventricular conduction delay no longer present Electronically Signed On 02-17-2023 1:15:29 CDT by Darya Clark M.D. [email or web address] Inbatson children's hospitalImpres Medicalmansfield hospital.[employer]/store/NU/[id number]
[2023-02-16 10:44] LABS: Basophils # 0.1 10^3/uL (0.0-0.1); Basophils % 0.7 %; Eosinophils # 0.1 10^3/uL (0.0-0.8); Eosinophils % 1.6 %; Hematocrit 50.2 % (42.0-52.0); Hemoglobin 16.6 g/dL (11.7-16.6); Lymphocytes # 1.8 10^3/uL (0.8-4.8); Lymphocytes % 25.7 %; Mean Corpuscular HGB Conc 33.1 g/dL (30.0-36.0); Mean Corpuscular Volume 93.8 fl (80-94); Mean Platelet Volume 8.2 fL (7.4-10.4); Monocytes # 0.6 10^3/uL (0.2-0.9); Monocytes % 8.9 %; Neutrophils # 4.23 10^3/uL (1.8-7.7); Neutrophils % 61.9 %; Nucleated Red Blood Cells % 0 %; Platelet Count 234 10^3/cmm (130-400); Red Blood Count 5.35 10^6/uL (4.1-5.3); Red Cell Distribution Width 12.8 % (12.1-15.1); White Blood Count 6.8 10^3/uL (4.0-10.0)
[2023-02-16] MEDS: aspirin 81 mg Chew Tablet 324 MG PO (10:53)
[2023-02-16 11:00] VITALS: BP 136/98; PULSE 85; RESP 18; O2SAT 96
[2023-02-16 11:12] LABS: Troponin(5th) Baseline 7 ng/L (0-15)
[2023-02-16 11:13] LABS: Anion Gap 15.7 (5-19); Blood Urea Nitrogen 12 mg/dL (6-20); Calcium 9.8 mg/dL (8.5-10.5); Carbon Dioxide 24 mmol/L (22-29); Chloride 98 mmol/L (98-107); Glomerular Filtration Rate 122.5 mL/min (90-130); Glucose 181 mg/dL (65-115); Osmolality Calculated 282 mOsm/kg (285-295); Potassium 3.7 mmol/L (3.5-5.1); Sodium 134 mmol/L (136-145)
--- NOTE | 2023-02-16 11:19 | ED_ITS ---
HPI - Chest Pain General: Chief Complaint: Chest Pain Stated Complaint: CP Time Seen by Provider: 02/16/23 10:21 Source: patient Mode of arrival: ambulatory History of Present Illness: 43-year-old male who presents to the emergency room with complaints of chest pain. He has a history of coronary disease he currently is on aspirin and atorvastatin he is not on Plavix. Last couple of days he has had chest discomfort with activity and at rest. Chest pain is slightly worsened today he took aspirin and 2 nitro this morning had no significant relief he has had some shortness of breath with it. He has been also having a productive cough coughing to the point where he is actually had a syncopal episode last night hit his head when he fell out of the chair. He is not on any anticoagulants. He denies fever. MD complaint: chest pain Pertinent past history: coronary artery disease Timing of current episode: episodic Onset: during rest Pain radiation: none Severity: mild Quality: aching and heaviness Relieving factors: nitroglycerin Exacerbating factors: nothing Associated symptoms: Deny abdominal pain, diaphoresis, dyspnea, fever(s), leg edema, nausea, palpitations, sense of impending doom, syncope or vomiting Review of Systems Const: Denies: fever(s), chills, fatigue, malaise or diaphoresis ENMT: Denies: throat pain, ear or mastoid pain, nasal discharge or nasal congestion Card: Reports: chest pain; Denies: palpitations, irregular heart rhythm, edema or syncope Resp: Denies: dyspnea, productive cough, non-productive cough or wheezing GI: Denies: abdominal pain, nausea or vomiting : Denies: flank pain, dysuria, urinary frequency or urinary urgency Skin/Breast: Denies: rash or pruritus PFSH ED PFSH: Medical History Benzodiazepine abuse Chronic low back pain Chronic pain in left shoulder Had pain present when seen 12/2021 on his first visit and thought he might have a rotator cuff tear then Cigarette smoker Claudication in peripheral vascular disease Since 2018 with walking 100 yards or less Dental caries associated with enamel hypomineralization Depression Erectile dysfunction Generalized anxiety disorder with panic attacks Hx of carotid stenosis Hypertension Prediabetes Torn rotator cuff Social History Smoking and tobacco status: current every day smoker cigarettes Packs smoked per day: 2 Alcohol intake: current Alcohol intake frequency: few times a week Substance/Drug Use: never Marital status: Single Number of children: 0 Current occupational status: employed Physical Exam Const: GENERAL APPEARANCE: cooperative and comfortable ORIENTATION/CONSCIOUSNESS: Yes awake, Yes oriented to person, Yes oriented to place and Yes oriented to time HENMT: COMMON NORMALS: normocephalic, atraumatic and hearing grossly normal bilaterally HEAD & SCALP: normocephalic and atraumatic Resp: COMMON NORMALS: normal respiratory effort, No retractions, No use of accessory muscles and clear to auscultation bilaterally AUSCULTATION: clear to auscultation bilaterally Cardio: COMMON NORMALS: regular rate, regular rhythm and No murmurs present (Cardio) RATE: regular rate RHYTHM: regular rhythm GI: COMMON NORMALS: Soft to palpation and No hepatosplenomegaly present AUSCULTATION: Yes normoactive bowel sounds PALPATION: Yes Soft to palpation, No Tenderness to palpation present (GI), No Guarding due to palpation present (GI) and Yes No hepatosplenomegaly present Extremity: COMMON NORMALS: normal to inspection, capillary refill normal, no clubbing, cyanosis or edema, no calf tenderness and no pedal edema Neuro: SENSORIUM/ORIENTATION: Yes oriented to person, Yes oriented to place and Yes oriented to time Skin: COMMON NORMALS: no rashes or lesions noted GENERAL SKIN EXAM: no rashes or lesions noted Course Vital Signs: Vital signs: Vital Signs Temperature 97.6 F 02/16/23 10:26 Pulse Rate 86 02/16/23 11:21 Respiratory Rate 18 02/16/23 11:00 Blood Pressure 118/85 02/16/23 12:32 Pulse Oximetry 98 02/16/23 13:44 Oxygen Delivery Me thod Room Air 02/16/23 13:44 MDM - Chest Pain Medical Decision Making EKG and cardiac enzymes are negative. Symptoms have resolved. Suspect this is more related to dyspepsia and GI mediated chest pain. We will start him on pantoprazole. He is feeling quite a bit better now to set him up to see general surgery for possible EGD. His liver enzymes are elevated I believe this is related to his past history of alcohol abuse. Discussed this all with the patient. Additionally he has been using kratom encouraged him to abstain from that as that may worsen his abdominal discomfort. Medical Records I reviewed the patient's medical records. Lab Data I reviewed the patient's lab results. 02/16/23 10:35 02/16/23 10:35 Radiology Impressions Chest X-Ray 02/16/23 10:30 IMPRESSION: No acute findings. Laboratory Results WBC 6.8 10^3/uL (4.0-10.0) 02/16/23 10:35 RBC 5.35 10^6/uL (4.1-5.3) H 02/16/23 10:35 Hgb 16.6 g/dL (11.7-16.6) 02/16/23 10:35 Hct 50.2 % (42.0-52.0) 02/16/23 10:35 MCV 93.8 fl (80-94) 02/16/23 10:35 MCH 31.0 pg (28.0-34.0) 02/16/23 10:35 MCHC 33.1 g/dL (30.0-36.0) 02/16/23 10:35 RDW 12.8 % (12.1-15.1) 02/16/23 10:35 Plt Count 234 10^3/cmm (130-400) 02/16/23 10:35 MPV 8.2 fL (7.4-10.4) 02/16/23 10:35 Neut % (Auto) 61.9 % 02/16/23 10:35 Lymph % (Auto) 25.7 % 02/16/23 10:35 Hemphill % (Auto) 8.9 % 02/16/23 10:35 Eos % (Auto) 1.6 % 02/16/23 10:35 Baso % (Auto) 0.7 % 02/16/23 10:35 Neut # (Auto) 4.23 10^3/uL (1.8-7.7) 02/16/23 10:35 Lymph # (Auto) 1.8 10^3/uL (0.8-4.8) 02/16/23 10:35 Hemphill # (Auto) 0.6 10^3/uL (0.2-0.9) 02/16/23 10:35 Eos # (Auto) 0.1 10^3/uL (0.0-0.8) 02/16/23 10:35 Baso # (Auto) 0.1 10^3/uL (0.0-0.1) 02/16/23 10:35 Nucleated RBC % (auto) 0 % 02/16/23 10:35 Nucleated RBCs # 0.0 /100WBC 02/16/23 10:35 Sodium 134 mmol/L (136-145) L 02/16/23 10:35 Potassium 3.7 mmol/L (3.5-5.1) 02/16/23 10:35 Chloride 98 mmol/L (98-107) 02/16/23 10:35 Carbon Dioxide 24 mmol/L (22-29) 02/16/23 10:35 Anion Gap 15.7 (5-19) 02/16/23 10:35 BUN 12 mg/dL (6-20) 02/16/23 10:35 Creatinine 0.7 mg/dL (0.7-1.2) 02/16/23 10:35 GFR Calculation 122.5 mL/min (90-130) 02/16/23 10:35 Glucose 181 mg/dL (65-115) H 02/16/23 10:35 Calculated Osmolality 282 mOsm/kg (285-295) L 02/16/23 10:35 Calcium 9.8 mg/dL (8.5-10.5) 02/16/23 10:35 Total Bilirubin 0.6 mg/dL (0.15-1.2) 02/16/23 10:35 Direct Bilirubin 0.20 mg/dL (0.00-0.30) 02/16/23 10:35 AST 62 U/L (0-40) H 02/16/23 10:35 ALT 73 U/L (0-41) H 02/16/23 10:35 Alkaline Phosphatase 78 U/L (40-130) 02/16/23 10:35 Troponin T Baseline 7 ng/L (0-15) 02/16/23 10:35 Troponin T 120 Minute 7.63 ng/L (0-15) 02/16/23 12:44 Delta Troponin T 0.63 ABS# (0-10) 02/16/23 12:44 Total Protein 7.5 g/dL (6.6-8.7) 02/16/23 10:35 Albumin 4.3 g/dL (3.5-5.2) 02/16/23 10:35 Globulin 3.2 g/dL (1.3-4.6) 02/16/23 10:35 Lipase 29 U/L (13-60) 02/16/23 10:35 Discharge Plan Discharge Patient Disposition: Home Clinical Impression: Dyspepsia, History of ETOH abuse Condition: Stable Prescriptions: New pantoprazole 40 mg tablet,delayed release (DR/EC) 40 mg PO BID 14 Days Qty: 28 0RF No Action clonazepam 2 mg tablet 2 mg PO TID 30 Days Qty: 90 3RF Rx Instructions: Fill on or after 30-day interval clonidine HCl 0.1 mg tablet 0.1 mg PO TID PRN (Reason: Blood Pressure) Qty: 90 3RF lisinopril-hydrochlorothiazide 20-25 mg tablet 1 tab PO QAM Qty: 30 5RF tadalafil 10 mg tablet 10 mg PO EVERY OTHER DAY PRN (Reason: sexual activity) Qty: 7 3RF Rx Instructions: take one tab at least 30min before sexual activity; do not use more than 1 dose per 24hrs aspirin 81 mg tablet,delayed release (DR/EC) 81 mg PO QAM Nitrostat 0.4 mg Tablet, Sublingual 0.4 mg SUBLINGUAL Q5M PRN (Reason: Chest Pain) Rx Instructions: do not exceed 3 doses per episode Kratom Powder See Rx Instructions .ROUTE .COMPLEX Rx Instructions: 3 spoonful po once a day Discharge Orders: Discharge ED (Routine); Ordered 02/16/23 Ordered By: Anil Senior Referrals: Nilesh Hutchinson MD [Primary Care Provider] - Discharge Diet: Usual diet Discharge Activity: Resume usual activity Patient Instructions: Opioid Safety, Pain Management Activity Restrictions/Additional Instructions: You are seen today chest pain. Cardiac enzymes and EKGs were normal. This appears to be more GI related chest discomfort. Your liver enzymes are slightly elevated which is likely related to your history of alcohol use. Would recommend that you not use kratom in any form. This may likely worsen your symptoms. Recommend you also start pantoprazole 40 mg twice daily for 14 days and then daily. Case management make arrangements for you to follow-up with general surgery to evaluate for possible EGD. Coding Level of Care Code ED Office Mail Clerk for Chg Fwd
[2023-02-16 11:21] VITALS: BP 136/98; PULSE 86
[2023-02-16] MEDS: nitroglycerin 1 gm/inch oint Pkt 1 INCH TOPICAL (11:21)
--- NOTE | 2023-02-16 12:23 | PC.PHAR ---
pt states he takes care of his own medications-pt states he hasnt taken atorvastatin 40mg hs,folic acid 1mg daily vit b-1 daily or venlafaxine er 75mg daily for 3 months-
[2023-02-16 12:32] VITALS: BP 118/85
--- NOTE | 2023-02-16 12:32 | ECG_ITS ---
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 Measurements Intervals [place] Rate: 87 P: 42 [place]: 183 QRS: 43 QRSD: 122 T: 62 QT: 378 QTc: 455 Interpretive Statements SINUS RHYTHM POSSIBLE RIGHT VENTRICULAR CONDUCTION DELAY [RSR (QR) IN V1/V2] Compared to ECG 02/16/2023 10:25:51 No significant changes Electronically Signed On 02-17-2023 22:30:51 CDT by Darya Clark M.D. [id number]
[2023-02-16 13:16] LABS: Troponin 5 2HR 7.63 ng/L (0-15)
[2023-02-16 13:27] LABS: Troponin 5 2HR Delta 0.63 ABS# (0-10)
[2023-02-16] MEDS: morphine 4 mg/mL SDV 1 mL 2 MG IVP (13:36)
--- NOTE | 2023-02-16 13:42 | PC.NURSE ---
Patient informed nurse that he took Kratom after nurse gave a dose of morphine.
[2023-02-16 13:44] VITALS: O2SAT 98
[2023-02-16 14:03] LABS: Alanine Aminotransferase 73 U/L (0-41); Albumin Level 4.3 g/dL (3.5-5.2); Alkaline Phosphatase 78 U/L (40-130); Aspartate Amino Transferase 62 U/L (0-40); Globulin 3.2 g/dL (1.3-4.6); Lipase 29 U/L (13-60); Total Bilirubin 0.6 mg/dL (0.15-1.2); Total Protein 7.5 g/dL (6.6-8.7)
== END 2023-02-16 14:24 | disposition home or self-care (01) ==
PROVIDERS: Emergency Provider Family Medicine; PCP Family Medicine Adult Medicine
DX: R10.13 Epigastric pain (principal); F10.11 Alcohol abuse, in remission; Z79.82 Long term (current) use of aspirin; I10 Essential (primary) hypertension; F17.210 Nicotine dependence, cigarettes, uncomplicated
CPT/HCPCS: 36415; 71045; 80048; 80076; 83690; 84484; 85025; 93005; 96374; 99285; J2270

== ENCOUNTER 2023-03-17 14:11 | Emergency (ER) | payer BC, MEDICAID, SELFPAY ==
[2023-03-17 14:20] VITALS: BP 145/97; PULSE 100; TEMP 37; O2SAT 99; BMI 34.9
--- NOTE | 2023-03-17 14:26 | ECG_ITS ---
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 Measurements Intervals [place] Rate: 98 P: 23 [place]: 157 QRS: 68 QRSD: 113 T: 56 QT: 358 QTc: 457 Interpretive Statements SINUS RHYTHM MODERATE INTRAVENTRICULAR CONDUCTION DELAY [110+ ms QRS DURATION] Compared to ECG 02/16/2023 12:32:46 Intraventricular conduction delay now present Electronically Signed On 03-17-2023 14:58:41 CDT by Michael Cabrera M.D. [id number] f
--- NOTE | 2023-03-17 14:27 | XRR_ITS ---
PROCEDURE INFORMATION: Exam: XR Chest Exam date and time: 03/17/2023 2:32 PM Age: 43 years old Clinical indication: Cough; Additional info: Cough and congestion, chest pressure TECHNIQUE: Imaging protocol: Radiologic exam of the chest. Views: 1 view. COMPARISON: CR XR chest 1V portable [id number] 02/16/2023 10:45 AM FINDINGS: Lungs: Unremarkable. No consolidation. Pleural spaces: Unremarkable. No pleural effusion. No pneumothorax. Heart/Mediastinum: Unremarkable. No cardiomegaly. Bones/joints: Unremarkable. XR/XR chest 1V portable [id number] IMPRESSION: No acute findings.
--- NOTE | 2023-03-17 14:55 | XRR_ITS ---
PROCEDURE INFORMATION: Exam: XR Sacrum and Coccyx, 2 or More Views Exam date and time: 03/17/2023 2:59 PM Age: 43 years old Clinical indication: Injury or trauma; Fall; Additional info: Fall with tailbone pain TECHNIQUE: Imaging protocol: XR of the sacrum and coccyx, 2 or more views. COMPARISON: No relevant prior studies available. FINDINGS: Bones/joints: Normal. No acute fracture. Soft tissues: Normal. XR/XR sacrum coccyx min 2V [id number] IMPRESSION: No acute findings.
--- NOTE | 2023-03-17 14:58 | ED_ITS ---
HPI - URI/Sore Throat General: Chief Complaint: Upper Respiratory Infection Stated Complaint: sore throat, loss of voice, mucus Time Seen by Provider: 03/17/23 14:27 History of Present Illness: Patient is a 43-year-old male comes to the ED with multiple complaints. He is states that his voice has been hoarse for the past 2 weeks. Throughout the day the voice gets more hoarse. Approximately 3 to 4 days ago he started developing nasal drainage and congestion along with a sore throat and a cough. He says he is coughing up a white sputum. Patient also states that he fell yesterday on his tailbone region. He is having pain in his tailbone region. Associated symptoms: Reports nasal congestion; Deny abdominal pain, chills, chest pain, diarrhea, fever(s), headache(s), nausea or vomiting Review of Systems Const: Denies: fever(s), chills or fatigue Eyes: Denies: change in vision or eye discomfort ENMT: Reports: throat pain, nasal discharge and nasal congestion; Denies: odynophagia Card: Denies: chest pain, palpitations, edema, swelling of feet/ankles, dyspnea on exertion or orthopnea Resp: Reports: productive cough; Denies: dyspnea or non-productive cough GI: Denies: abdominal pain, nausea, vomiting, diarrhea, constipation or hematochezia : Denies: flank pain, difficulty urinating, dysuria or hematuria Musc: Reports: back pain (Tailbone pain); Denies: neck pain or extremity swelling Skin/Breast: Denies: rash or new lesions Neuro: Denies: headache(s), numbness in extremities or weakness in extremities [facility] ED PFSH: Medical History Benzodiazepine abuse 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 Chronic low back pain Chronic pain in left shoulder Had pain present when seen 12/2021 on his first visit and thought he might have a rotator cuff tear then Cigarette smoker Claudication in peripheral vascular disease Since 2018 with walking 100 yards or less Dental caries associated with enamel hypomineralization Depression Erectile dysfunction Generalized anxiety disorder with panic attacks Hx of carotid stenosis Hypertension Prediabetes Torn rotator cuff Social History Smoking and tobacco status: current every day smoker cigarettes Packs smoked per day: 2 Alcohol intake: current Alcohol intake frequency: few times a week Substance/Drug Use: never Marital status: Single Number of children: 0 Current occupational status: employed Physical Exam Const: COMMON NORMALS: no acute distress, patient oriented x3 and healthy appearing HENMT: COMMON NORMALS: normocephalic HEAD & SCALP: normocephalic MOUTH: Normal oral and palatal mucosa present THROAT: posterior oropharynx normal and uvula midline Neck/C-Spine: COMMON NORMALS: supple GENERAL: Yes normal visual inspection Resp: COMMON NORMALS: normal respiratory effort, No retractions, No use of accessory muscles and clear to auscultation bilaterally AUSCULTATION: clear to auscultation bilaterally Cardio: COMMON NORMALS: regular rate, regular rhythm, S1 normal heart sound present, S2 normal heart sound present, No gallops present (Cardio), No clicks present (Cardio), No murmurs present (Cardio) and Peripheral pulses 2+ throughout RATE: regular rate RHYTHM: regular rhythm HEART SOUNDS: S1 normal heart sound present and S2 normal heart sound present PERIPHERAL PULSES: Peripheral pulses 2+ throughout GI: COMMON NORMALS: Normal to inspection, nondistended, normoactive bowel sounds present, Soft to palpation, non-tender and no masses PALPATION: Yes Soft to palpation : COMMON NORMALS: Yes no CVA tenderness BLADDER/KIDNEY EXAM: Yes no CVA tenderness Back/Pelvis: COMMON NORMALS: no CVA tenderness Extremity: COMMON NORMALS: normal to inspection Neuro: COMMON NORMALS: patient oriented x3 GAIT: Yes Normal gait present Skin: GENERAL SKIN EXAM: dry skin Course Vital Signs: Vital signs: Vital Signs Temperature 98.6 F 03/17/23 14:20 Pulse Rate 100 03/17/23 14:20 Respiratory Rate 18 03/17/23 17:04 Blood Pressure 145/97 03/17/23 14:20 Pulse Oximetry 99 03/17/23 14:20 Oxygen Delivery Me thod Room Air 03/17/23 14:20 MDM - URI/Sore Throat Medical Decision Making Patient is a 43-year-old male comes to the ED with multiple complaints. He is states that his voice has been hoarse for the past 2 weeks. Throughout the day the voice gets more hoarse. Approximately 3 to 4 days ago he started developing nasal drainage and congestion along with a sore throat and a cough. He says he is coughing up a white sputum. Patient also states that he fell yesterday on his tailbone region. He is having pain in his tailbone region. Vitals are stable. Exam is benign. Chest x-ray shows no acute findings. Sacrum and coccyx x-ray shows no acute findings. Strep is negative. Patient was diagnosed with pain in coccyx and bronchitis. He was sent home with a prescription for an antibiotic and steroid. He was told to follow-up with his PCP within the next week for reevaluation I told him to talk with his PCP about his hoarse voice over the last 2 weeks and if it does not improve, he will likely need some outpatient imaging done for further evaluation. Patient understood and agreed with plan. Lab Data I reviewed the patient's lab results. Radiology Impressions Chest X-Ray 03/17/23 14:27 IMPRESSION: No acute findings. Sacrum and Coccyx X-Ray 03/17/23 14:55 IMPRESSION: No acute findings. Laboratory Results Group A Strep Rapid Negative (Negative) 03/17/23 15:34 Discharge Plan Discharge Patient Disposition: Home Clinical Impression: Bronchitis, Pain in the coccyx Condition: Stable Prescriptions: New methylprednisolone 4 mg tablets,dose pack See Rx Instructions .ROUTE .COMPLEX Qty: 21 0RF Rx Instructions: orally per package directions azithromycin 250 mg tablet See Rx Instructions .ROUTE .COMPLEX Qty: 6 0RF Rx Instructions: For 250 mg dose pack: take 500 mg today (day 1), then 250 mg for 4 days (days 2-5) No Action clonazepam 2 mg tablet 2 mg PO TID 30 Days Qty: 90 3RF Rx Instructions: Fill on or after 30-day interval clonidine HCl 0.1 mg tablet 0.1 mg PO TID PRN (Reason: Blood Pressure) Qty: 90 3RF tadalafil 10 mg tablet 10 mg PO EVERY OTHER DAY PRN (Reason: sexual activity) Qty: 7 3RF Rx Instructions: take one tab at least 30min before sexual activity; do not use more than 1 dose per 24hrs lisinopril-hydrochlorothiazide 20-25 mg tablet 1 tab PO QAM Qty: 30 0RF prednisone 20 mg tablet 40 mg PO DAILY 5 Days Qty: 10 0RF aspirin 81 mg tablet,delayed release (DR/EC) 81 mg PO QAM Nitrostat 0.4 mg Tablet, Sublingual 0.4 mg SUBLINGUAL Q5M PRN (Reason: Chest Pain) Rx Instructions: do not exceed 3 doses per episode Kratom Powder See Rx Instructions .ROUTE .COMPLEX Rx Instructions: 3 spoonful po once a day Discharge Orders: Discharge ED (Routine); Ordered 03/17/23 Ordered By: Demetrio Raya Referrals: Nilesh Hutchinson MD [Primary Care Provider] - Discharge Diet: Regular Discharge Activity: Increase activity as tolerated Patient Instructions: Bronchitis (Acute) - Adult Activity Restrictions/Additional Instructions: Follow-up with medical provider as directed in the next 3 to 5 days for reevaluation. Let PCP know about your hoarse voice for the past 2 weeks and they can likely schedule some outpatient imaging for you for further evaluation. take medications as prescribed. Take [id number] Tylenol or ibuprofen as needed for pain. Return to the ER or your medical provider if condition worsens. Please read and understand discharge instructions. Thank you for choosing [facility] for your healthcare needs today. Please realize this is an emergency room and that we are providing you with a medical screening exam and this may not be complete and all inclusive of all the testing and or work up that you may need to determine your ailment or severity of your illness. It is very important that you follow up as instructed or that you return to the Emergency Department should you have concerns or if your condition changes or worsens in any way. Coding Level of Care Code ED Envelope Cutter for Adam Adair
[2023-03-17] MEDS: HYDROcodone-acetaminophen 5-325 mg Tablet 1 TAB PO (15:13)
[2023-03-17] MEDS: LORazepam 1 mg Tablet PO (15:13)
[2023-03-17 16:23] LABS: Rapid Strep A Test Negative (Negative)
[2023-03-17 17:04] VITALS: RESP 18
[2023-03-17] MEDS: morphine 4 mg/mL SDV 1 mL IM (17:04)
== END 2023-03-17 17:16 | disposition home or self-care (01) ==
PROVIDERS: Emergency Provider Physician Assistant; PCP Family Medicine Adult Medicine
DX: M53.3 Sacrococcygeal disorders, not elsewhere classified (principal); J40 Bronchitis, not specified as acute or chronic; F17.210 Nicotine dependence, cigarettes, uncomplicated
CPT/HCPCS: 71045; 72220; 87081; 87880; 93005; 96372; 99285; J2270

== ENCOUNTER 2023-05-22 16:33 | Inpatient (IN) | payer MEDICAID, SELFPAY ==
[2023-05-22 16:51] VITALS: BP 142/97; PULSE 96; RESP 19; TEMP 36.8; O2SAT 98; BMI 36.5
[2023-05-22 17:13] LABS: Basophils # 0.1 10^3/uL (0.0-0.1); Eosinophils # 0.2 10^3/uL (0.0-0.8); Eosinophils % 1.6 %; Hematocrit 47.8 % (37-53); Lymphocytes # 3.2 10^3/uL (0.8-4.8); Lymphocytes % 30.1 %; Mean Corpuscular HGB Conc 33.1 g/dL (30-55); Mean Corpuscular Hemoglobin 31.3 pg (27-33); Mean Corpuscular Volume 94.8 fl (82-101); Mean Platelet Volume 8.2 fL (7.4-10.4); Monocytes # 0.9 10^3/uL (0.2-0.9); Monocytes % 8.8 %; Neutrophils # 6.14 10^3/uL (1.8-7.7); Nucleated Red Blood Cells % 0 %; Platelet Count 283 10^3/cmm (157-399); Red Blood Count 5.04 10^6/uL (3.85-5.65); Red Cell Distribution Width 13.2 % (12.1-15.1); White Blood Count 10.58 10^3/uL (3.29-11.43)
[2023-05-22 17:34] LABS: Acetaminophen < 5.0 ug/mL (10-30); Alanine Aminotransferase 76 U/L (0-41); Albumin Level 4.4 g/dL (3.5-5.2); Alcohol Level 31 mg/dL (0-10); Alkaline Phosphatase 72 U/L (40-130); Anion Gap 15.7 (5-19); Aspartate Amino Transferase 45 U/L (0-40); Blood Urea Nitrogen 13 mg/dL (6-20); Carbon Dioxide 23 mmol/L (22-29); Chloride 102 mmol/L (98-107); Globulin 3.1 g/dL (1.3-4.6); Glomerular Filtration Rate 91.7 mL/min (90-130); Glucose 97 mg/dL (65-115); Osmolality Calculated 284 mOsm/kg (285-295); Potassium 3.7 mmol/L (3.5-5.1); Salicylate < 0.3 mg/dL (3-10); Sodium 137 mmol/L (136-145); Total Bilirubin 0.4 mg/dL (0.15-1.2); Total Protein 7.5 g/dL (6.6-8.7)
--- NOTE | 2023-05-22 17:35 | ECG_ITS ---
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 Measurements Intervals [place] Rate: 84 P: 17 [place]: 180 QRS: 59 QRSD: 124 T: 63 QT: 386 QTc: 459 Interpretive Statements SINUS RHYTHM MODERATE INTRAVENTRICULAR CONDUCTION DELAY [110+ ms QRS DURATION] Compared to ECG 03/17/2023 14:27:29 No significant changes Electronically Signed On 05-23-2023 15:21:46 CDT by Michael Cabrera M.D. [id number]
--- NOTE | 2023-05-22 17:36 | W.ED.PSYCHS ---
HPI - Psych General: Chief Complaint: Psychiatric Symptoms Stated Complaint: mag Time Seen by Provider: 05/22/23 16:58 History of Present Illness: Presents to the ER with complaints of suicidal ideations. Patient said the world just coming down around him. Last week patient lost his job, got really really drunk and decided to check himself into rehab down at [place] spent 3 days they are in when he got out felt that it he need just needed more time to help. Patient is having bad thoughts of suicide. Patient was on a bridge today and thought of jumping. Since patient lost his job and is planning on moving in with his girlfriend and having major life stressors. Review of Systems General: Reports: 10 or more systems reviewed and unremarkable except in HPI and below PFSH ED PFSH: Medical History Benzodiazepine abuse 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 Chronic low back pain Chronic pain in left shoulder Had pain present when seen 12/2021 on his first visit and thought he might have a rotator cuff tear then Cigarette smoker Claudication in peripheral vascular disease Since 2017 with walking 100 yards or less Dental caries associated with enamel hypomineralization Depression Erectile dysfunction Generalized anxiety disorder with panic attacks Hx of carotid stenosis Hypertension Prediabetes Torn rotator cuff Social History Smoking and tobacco status: current every day smoker cigarettes Packs smoked per day: 2 Alcohol intake: current Alcohol intake frequency: few times a week Substance/Drug Use: never Marital status: Single Number of children: 0 Current occupational status: employed Physical Exam Const: COMMON NORMALS: no acute distress, average body habitus, patient oriented x3, no limitations, healthy appearing, alert and well nourished HENMT: COMMON NORMALS: normocephalic, atraumatic, hearing grossly normal bilaterally, external ears normal, Normal external nose present and moist oral mucous membranes HEAD & SCALP: normocephalic and atraumatic NOSE: Normal external nose present EXTERNAL EAR: Yes external ears normal Eye: COMMON NORMALS: Equal, round and reactive pupils present, EOMs intact bilaterally, conjunctivae normal and no scleral icterus CONJUNCTIVA: Yes conjunctivae normal PUPIL: Yes Equal, round and reactive pupils present Neck/C-Spine: COMMON NORMALS: full ROM, no lymphadenopathy, supple, no meningeal signs, no JVD and Thyroid normal THYROID: Thyroid normal Chest: COMMONS NORMALS: normal inspection of the chest and normal palpation of entire chest wall Resp: COMMON NORMALS: normal respiratory effort, No retractions, No use of accessory muscles and clear to auscultation bilaterally AUSCULTATION: clear to auscultation bilaterally Cardio: COMMON NORMALS: no JVD, regular rate, regular rhythm, S1 normal heart sound present, S2 normal heart sound present, No gallops present (Cardio), No clicks present (Cardio), No murmurs present (Cardio) and No rub (Cardio) RATE: regular rate RHYTHM: regular rhythm HEART SOUNDS: S1 normal heart sound present and S2 normal heart sound present GI: COMMON NORMALS: Normal to inspection, nondistended, normoactive bowel sounds present, Soft to palpation, non-tender, No hepatosplenomegaly present and no masses PALPATION: Yes Soft to palpation and Yes No hepatosplenomegaly present : COMMON NORMALS: Yes no CVA tenderness BLADDER/KIDNEY EXAM: Yes no CVA tenderness Back/Pelvis: COMMON NORMALS: no CVA tenderness Neuro: COMMON NORMALS: patient oriented x3 SENSORIUM/ORIENTATION: Yes alert MENINGEAL SIGNS: Yes no meningeal signs Psych: OTHER: Sad depressed with suicidal talk Course Vital Signs: Vital signs: Vital Signs Temperature 98.3 F 05/22/23 16:51 Pulse Rate 96 05/22/23 16:51 Respiratory Rate 19 H 05/22/23 16:51 Blood Pressure 142/97 05/22/23 16:51 Pulse Oximetry 98 05/22/23 16:51 Oxygen Delivery Me thod Room Air 05/22/23 16:51 MDM - Psych Medical Decision Making Presents to the ER with suicidal ideation. Patient does not want to do it but he has thoughts to jump region killing himself. Physical exam was performed lab work was obtained anticipate the patient will be admitted to NPU. Dr. Wagner was consulted who agreed to admit the patient to [facility] for further evaluation and treatment. Differential Diagnosis Likely suicidal ideation; Unlikely acute psychosis, chronic schizophrenia, bipolar disorder, depression, drug-induced psychotic disorder or acute anxiety Medical Records I reviewed the patient's medical records. Lab Data I reviewed the patient's lab results. 05/22/23 17:08 05/22/23 17:08 Laboratory Results WBC 10.58 10^3/uL (3.29-11.43) 05/22/23 17:08 RBC 5.04 10^6/uL (3.85-5.65) 05/22/23 17:08 Hgb 15.80 g/dL (11.27-16.99) 05/22/23 17:08 Hct 47.8 % (37-53) 05/22/23 17:08 MCV 94.8 fl (82-101) 05/22/23 17:08 MCH 31.3 pg (27-33) 05/22/23 17:08 MCHC 33.1 g/dL (30-55) 05/22/23 17:08 RDW 13.2 % (12.1-15.1) 05/22/23 17:08 Plt Count 283 10^3/cmm (157-399) 05/22/23 17:08 MPV 8.2 fL (7.4-10.4) 05/22/23 17:08 Neut % (Auto) 58.0 % 05/22/23 17:08 Lymph % (Auto) 30.1 % 05/22/23 17:08 Lamar % (Auto) 8.8 % 05/22/23 17:08 Eos % (Auto) 1.6 % 05/22/23 17:08 Baso % (Auto) 1.0 % 05/22/23 17:08 Neut # (Auto) 6.14 10^3/uL (1.8-7.7) 05/22/23 17:08 Lymph # (Auto) 3.2 10^3/uL (0.8-4.8) 05/22/23 17:08 Lamar # (Auto) 0.9 10^3/uL (0.2-0.9) 05/22/23 17:08 Eos # (Auto) 0.2 10^3/uL (0.0-0.8) 05/22/23 17:08 Baso # (Auto) 0.1 10^3/uL (0.0-0.1) 05/22/23 17:08 Nucleated RBC % (auto) 0 % 05/22/23 17:08 Nucleated RBCs # 0.0 /100WBC 05/22/23 17:08 Sodium 137 mmol/L (136-145) 05/22/23 17:08 Potassium 3.7 mmol/L (3.5-5.1) 05/22/23 17:08 Chloride 102 mmol/L (98-107) 05/22/23 17:08 Carbon Dioxide 23 mmol/L (22-29) 05/22/23 17:08 Anion Gap 15.7 (5-19) 05/22/23 17:08 BUN 13 mg/dL (6-20) 05/22/23 17:08 Creatinine 0.9 mg/dL (0.7-1.2) 05/22/23 17:08 GFR Calculation 91.7 mL/min (90-130) 05/22/23 17:08 Glucose 97 mg/dL (65-115) 05/22/23 17:08 Calculated Osmolality 284 mOsm/kg (285-295) L 05/22/23 17:08 Calcium 9.0 mg/dL (8.5-10.5) 05/22/23 17:08 Total Bilirubin 0.4 mg/dL (0.15-1.2) 05/22/23 17:08 AST 45 U/L (0-40) H 05/22/23 17:08 ALT 76 U/L (0-41) H 05/22/23 17:08 Alkaline Phosphatase 72 U/L (40-130) 05/22/23 17:08 Total Protein 7.5 g/dL (6.6-8.7) 05/22/23 17:08 Albumin 4.4 g/dL (3.5-5.2) 05/22/23 17:08 Globulin 3.1 g/dL (1.3-4.6) 05/22/23 17:08 Salicylates < 0.3 mg/dL (3-10) L 05/22/23 17:08 Acetaminophen < 5.0 ug/mL (10-30) L 05/22/23 17:08 Ethyl Alcohol 31 mg/dL (0-10) H 05/22/23 17:08 EKG Data EKG 1: I personally reviewed and interpreted this EKG as follows: EKG interpretation date: 05/22/23 EKG interpretation time: 17:41 Prior EKG tracings: not available for review Interpretation: EKG showed ventricular rate 84 bpm, TN interval 180, QRS duration 124, QTc of 428, sinus rhythm, moderate intraventricular conduction delay, no ST-T wave changes Discharge Plan Discharge Patient Disposition: Admitted As Inpatient Clinical Impression: Suicidal ideation Condition: Stable Coding Level of Care Code ED [employer] for Adam Adair
[2023-05-22 19:36] VITALS: PULSE 100; RESP 20; O2SAT 97
[2023-05-22 19:43] VITALS: BP 163/100; PULSE 85; RESP 20; TEMP 37; O2SAT 96
[2023-05-22 19:49] LABS: Amphetamines Screen Urine Negative (Negative); Barbiturates Screen Urine Negative (Negative); Benzodiazepines Screen Urine Positive (Negative); Cocaine Screen Urine Negative (Negative); Opiate Screen Urine Negative (Negative); PCP Screen Urine Negative (Negative); THC Screen Urine Negative (Negative)
[2023-05-22 19:52] LABS: Add Urine Culture? No; Add Urine Microscopic? YES; Bacteria Urine TRACE /hpf; Bilirubin Urine 1+ (Negative); Blood Urine Neg (Negative); Glucose Urine UA 2+ (Normal); Ketones Urine 1+ (Negative); Leukocyte Esterase Urine Negative (Negative); Mucus Urine 4+ /hpf; Nitrate Urine Negative (Negative); Protein Urine Trace (Negative); RBC Urine 0-4 /hpf (0-2); Specific Gravity, Urine 1.025 (1.005-1.030); Squamous Epithelial Cell Urine 0-4 /hpf (0-5); Urine Appearance Clear (CLEAR); Urine Color Yellow (Yellow); Urobilinogen Urine 1 mg/dL (Negative); WBC Urine 0-4 /hpf (0-5); pH Urine 5 (5-7)
[2023-05-22 20:42] VITALS: BP 163/100; PULSE 85; RESP 20; TEMP 37; O2SAT 96
[2023-05-22] MEDS: CLONazepam 1 mg Tablet 2 MG PO (20:54)
[2023-05-22] MEDS: acetaminophen 325 mg Tablet 650 MG PO (20:56)
[2023-05-23 06:00] VITALS: BP 145/94; PULSE 85; RESP 20; TEMP 36.5; O2SAT 95
[2023-05-23] MEDS: acetaminophen 325 mg Tablet 650 MG PO (07:58)
--- NOTE | 2023-05-23 08:35 | P.NPUHP_ITS ---
Providers/Chief Complaint Admitting Physician: Gigi Wagner MD Primary Care Provider: Nilesh Hutchinson MD Chief Complaint: mag HPI [facility] History of Present Illness Rudy Crawford is a 43 year old male who presented to the emergency department with the following report: Chief Complaint: Psychiatric Symptoms Stated Complaint: mag Time Seen by Provider: 05/22/23 16:58 History of Present Illness: Presents to the ER with complaints of suicidal ideations. Patient said the world just coming down around him. Last week patient lost his job, got really really drunk and decided to check himself into rehab down at [place] spent 3 days they are in when he got out felt that it he need just needed more time to help. Patient is having bad thoughts of suicide. Patient was on a bridge today and thought of jumping. Since patient lost his job and is planning on moving in with his girlfriend and having major life stressors. He was admitted to the neuropsychiatric unit for the definitive treatment of those issues. Patient presented today reporting that things are very stressed he reports that his anxiety is out of control and that he lost his job. He r eports that he is temporarily homeless and that he is moving into a new place next week with some woman that he has a relationship with. He endorsed having suicidal thoughts but reports those have diminished. He endorses a history of having anxiety helps with Klonopin. He reports that his anxiety gets so [id number] that he has chest pains and feels like he might have a heart attack. He endorses maybe having a cardiac history. We reviewed his previous hospitalization from August of last year and an excerpt of that stay is included below for context and his report of limited/no substantive changes since that today. Outside of his current living arrangement issues. We discussed possible medications for his anxiety and he was very focused on not changing the Klonopin which we discussed that 2 mg p.o. 3 times daily is a very high dose. He reports it has been very effective but cannot explain why he was always anxious if it is very effective. He is not interested in any medications like SSRIs etc. reporting he knows what works. He had initially talked about leaving AMA but then reported he would stay but he seemed quite ambivalent about this stay overall. Per his 09/25/2022 [facility] inpatient psychiatric discharge summary: Discharge Diagnosis (1) Panic disorder: Status: Acute (2) Alcohol dependence: Status: Acute (3) Benzodiazepine abuse: Status: Acute Reason for Visit Reason for Visit: Suicidal ideation Brief History: History of Present Illness Rudy Crawford is a 42 year old male who had presented to his primary care nurse on 09/22/2020 2 in the morning requesting treatment for alcohol withdrawal. He reports that he wishes to stop his consumption of alcohol and stated that he was having withdrawal symptoms as he had reported having last consumed alcohol on the night of 09/21/2022. He had reported having consumed a gallon of fireball whiskey and reports having consumed a case of beer on a daily basis. He reports his consumption of alcohol has been increasing since he was taken abruptly off of his prescribed Klonopin of 2 mg/day. He had reported a previous history of panic attacks and considerable anxiety that had been worsening his cardiac problems. He states that he had not been prescribed Klonopin for over a month. He endorses a past history of withdrawal seizures although it is uncertain as to whether that was associated with withdrawal from benzodiazepines or alcohol. He had acknowledged no depression but states that his panic attacks have been more frequent over the past few months. He reports an extended history of chest pain shortness of breath difficulty swallowing and feeling like he is going to . He reports that these panic attacks occur without triggers frequently. Current medications: gabapentin 300mg bid, hydrochlorothiazide/lisinopril: 25mg/20mg, hydroxyzine 25mg bid Previous admission on 06/22/2022 at NPU: Rudy Crawford is a 42 year old single white male with a history of panic attacks coronary artery disease and hypertension who reports to the emergency department with suicidal ideation with a plan to jump off of a bridge. He had reported that he had been feeling more depressed and reported uncontrolled anxiety over the past 3 months since he had ran out of his Klonopin 1 mg twice a day. He had reported that he has had chronic panic attacks for many years with unknown triggered panic attacks lasting approximately 40 minutes with associated chest pain shortness of breath numbing and tingling in his fingers and difficulty with breathing. He reports that his panic attacks have led him to the emergency department multiple times with complaints of chest pain. He reports that he had a heart attack a few years ago and he has had these panic attacks since that time. The patient reports being burdened by anxiety over the past few months. He reports that he had been unable to receive his Klonopin in [place], [place] where he had moved. He reports that he had recently moved back to the area and had not been able to see his primary care physician yet to get back on his Klonopin. The patient had reported diminished energy low motivation and depressed mood for the past month. He had endorsed having suicidal thoughts. He denied any psychotic symptoms. He denied any history of manic symptoms. He had reported a long history of chronic worry since his heart attack occurred. Past psychiatric history: Patient has a history of 1 inpatient hospitalization 2 years ago for suicidal ideation at [facility] in [facility]. He had repo rted no history of psychotherapy but reports a history of having been treated for panic attacks and depression with medication trials on Lexapro and xanax. He also reported a history of having been treated for opioid abuse with a history of having been in methadone clinic for a few years having last used methadone 6 years ago. Medical history: Chronic lower back pain peripheral vascular disease with claudication history of carotid stenosis history of hypertension, HTN Surgical history he has a history of placement of stent in the coronary artery he has a history of repair of a torn rotator cuff Allergies: Toradol Medications: Klonopin 1 mg twice a day aspirin 81 mg in the morning clonidine 0.1 mg twice a day nitroglycerin as needed Drug and alcohol history: He reports having begun use of opiates at the age of [age]. He had reported last use of opiates for treating pain few days ago. He had reported a past history of methadone treatment but reports no substance abuse inpatient or rehabilitation in the past. He had reported a past history of alcohol abuse but reports that he has not been drinking recently. He denies any history of benzodiazepine misuse. Family psychiatric history: alcohol abuse-father Social History: Patient was born and raised in [place]. He is currently living in [facility]. He has never been and has no children. He was raised by his biological parents and is the youngest of 5. 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 He denies any significant history of trauma. He denies any history of legal issues. Update: Patient had endorsed recently having been hospitalized at [facility] in july in an attempt to help with detoxification off of benzodiazepines and alcohol. He reports that he had left and intensive inpatient rehabilitation facility in [place] in early August 2022. His living situation is also changed he is currently staying with a friend near [facility]. Hospital Course Hospital Course Discharge Summary: During the hospitalization, patient had routine laboratory studies which were within normal limits except for few outliers. Additionally there was a general medical evaluation which was also within normal limits and revealed no new acute processes. He did show evidence of alcohol withdrawal though 72 hours had passed since his last use of alcohol. He had been given as needed Ativan, and Valium to manage alcohol withdrawal symptoms during his hospital stay. At the time of discharge, lethality was denied and psychosis was resolving. Mood and anxiety were well managed. Patient endorsed a plan to avoid all drugs of abuse and follow-up with the aftercare recommendations of the treatment team. Patient was evaluated and deemed to be absent credible lethality, and had achieved the maximum benefit from an inpatient hospitalization, so was discharged. The patient had revealed a significant problem at his previous hospitalization here with panic attacks. The patient had reported that he had been prescribed Klonopin and it was confirmed to be 3 mg a day. He reports that his Klonopin was abruptly discontinued approximately 1 month ago. He had reported significant alcohol abuse in efforts to manage his anxiety but admitted that he had had significant difficulties with managing his anxiety in the absence of benzodiazepines. Patient during his hospital stay had been informed of a plan to slowly taper the Klonopin instead and I discussed with him a long- term plan of managing anxiety using Effexor which will be titrated upwards while he was in inpatient treatment at the [facility]. Meds NPU Home Medications Medication Instructions Recorded Confirmed Last Taken Type aspirin 81 mg tablet,delayed 81 mg PO QAM 10/29/22 03/10/23 02/16/23 06:00 History release clonidine HCl 0.1 mg tablet 0.1 mg PO TID PRN Blood Pressure 12/03/22 03/10/23 Unknown Rx #90 tabs tadalafil 10 mg tablet 10 mg PO EVERY OTHER DAY PRN 12/03/22 03/10/23 Unknown Rx sexual activity #7 tabs Kratom Powder See Rx Instructions .Route .COMPLEX 02/16/23 03/10/23 02/15/23 History nitroglycerin 0.4 mg sublingual 0.4 mg sublingual Q5M PRN Chest 05/03/10/23 02/16/23 History tablet (Nitrostat) Pain prednisone 20 mg tablet 40 mg PO DAILY 5 days #10 tabs 03/10/23 03/10/23 Unknown Rx azithromycin 250 mg tablet See Rx Instructions PO .COMPLEX #6 03/17/23 Unknown Rx tabs methylprednisolone 4 mg tablets in See Rx Instructions PO .COMPLEX 03/17/23 Unknown Rx a dose pack #21 ea clonazepam 2 mg tablet 2 mg PO TID anxiety/panic attacks 04/06/23 Unknown Rx 30 days #90 tabs lisinopril 20 1 tab PO QAM blood pressure #30 04/06/23 Unknown Rx mg-hydrochlorothiazide 25 mg tablet tabs Allergies Allergy/AdvReac Type Severity Reaction Status Date / Time codeine Allergy ALGY-Hives Verified 03/17/23 14:26 ketorolac [From Toradol] Allergy ALGY-Hives Verified 03/17/23 14:26 PFSH NPU PFSH: Medical History Benzodiazepine abuse 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 Chronic low back pain Chronic pain in left shoulder Had pain present when seen 12/2021 on his first visit and thought he might have a rotator cuff tear then Cigarette smoker Claudication in peripheral vascular disease Since 2017 with walking 100 yards or less Dental caries associated with enamel hypomineralization Depression Erectile dysfunction Generalized anxiety disorder with panic attacks Hx of carotid stenosis Hypertension Prediabetes Torn rotator cuff Social History Smoking and tobacco status: current every day smoker cigarettes Packs smoked per day: 2 Alcohol intake: current Alcohol intake frequency: few times a week Substance/Drug Use: never Marital status: Single Number of children: 0 Current occupational status: employed Mental Status Exam MSE Comments: This is an obese white male in hospital scrubs with adequate grooming and eye contact. Very robust womack. No abnormal movements except for mild psychomotor retardation. Mostly cooperative with exam and mild distress. Speech was slightly decreased rate normal volume. Mood described as better than yesterday I do not know if I want to stay here because it probably will not help my anxiety, affect slightly subdued. Thought process organized. Thought content: Patient denied suicidal or homicidal ideation, there were no delusions reported or noted, denied any auditory or visual hallucinations. Attention and concentration appeared intact and memory appeared mostly reliable but none were formally tested. He is alert and oriented x3. Insight, judgment and impulse control are limited. Vitals/I&O/Wt Last Vital Signs Temp 98.6 F 05/22/23 20:42 Pulse 85 05/22/23 20:42 Resp 20 H 05/22/23 20:42 BP 163/100 05/22/23 20:42 Pulse Ox 96 05/22/23 20:42 O2 Del Method Room Air 05/22/23 19:51 Weight last 48 hrs Weight 108.862 kg Data NPU 05/22/23 17:08 05/22/23 17:08 A&P Assessment and plan (1) Panic disorder: (2) Alcohol dependence: (3) Benzodiazepine abuse: Plan Patient is a 43-year-old white male admitted with vague suicidal ideation, worsening anxiety and daily panic attacks, along with alcohol dependence currently reporting abrupt discontinuation of benzodiazepines abruptly one month ago. 1. Continue current medication. Explore whether 2 mg p.o. 3 times daily of Klonopin is appropriate. 2.? Encourage individual, group and milieu therapy 3.? Continue q-15 minute check for safety 4.? Recommend sober living treatment at the highest level of care to which the patient is willing to commit. Involuntary Hold Information 96 Hour Hold: 96 Hour Involuntary Admission: No Attestations NPU Medical Necessity Statement*: Inpatient hospitalization is medically necessary and clinically appropriate intervention at this time. We will monitor medications and make changes as indicated. Patient will be in the hospital for over 2 midnights. His likely length of stay is 1-2 days. We will consider discharge today as patient is posturing that he wants to leave. But continues to change his mind likely r elated to the Klonopin administration. Coding Level of Care Code Acute Code for [facility] Diagnoses Panic disorder F41.0 Alcohol dependence F10.20 Benzodiazepine abuse F13.10
--- NOTE | 2023-05-23 08:35 | PC.NURSE ---
During morning assessment, patient reporting severe anxiety. Patient denies depression, SI, HI, AVH. Patient states that his problem is anxiety and that he desperately needs his klonopin.
[2023-05-23] MEDS: CLONazepam 1 mg Tablet 2 MG PO ×2 (09:56→14:11)
[2023-05-23] MEDS: folic acid 1 mg Tablet PO (09:57)
[2023-05-23] MEDS: thiamine 100 mg Tablet PO (09:57)
[2023-05-23] MEDS: multivitamin therapeutic Tablet 1 TAB PO (09:57)
[2023-05-23] MEDS: nicotine 21 mg Patch 1 PATCH TRANSDERMA (09:59)
--- NOTE | 2023-05-23 10:07 | PC.NURSE ---
Patient notified this nurse that he felt as though he is going to have a nervous breakdown. Patient stated that it is because he feels like he is trapped, like he is alf. This nurse administered patient's clonazepam and talked to patient. Patient seemed calmer, hands were no longer clenched. Patient now sitting in dayroom watching TV.
[2023-05-23] MEDS: aspirin 81 mg EC Tablet PO (11:25)
[2023-05-23] MEDS: lisinopril 20 mg Tablet PO (11:25)
[2023-05-23 14:00] VITALS: BP 157/88; PULSE 79; RESP 16; O2SAT 96
[2023-05-23 14:28] VITALS: BP 157/88; PULSE 79; RESP 16; O2SAT 96
--- NOTE | 2023-05-23 14:30 | P.NPUDS_ITS ---
Diagnoses at Discharge Discharge Diagnosis (1) Panic disorder: Status: Inactive (2) Alcohol dependence: Status: Acute (3) Benzodiazepine abuse: Status: Inactive Reason for Visit Reason for Visit: mag Brief History: History of Present Illness Rudy Crawofrd is a 43 year old male who presented to the emergency department with the following report: Chief Complaint: Psychiatric Symptoms Stated Complaint: mag Time Seen by Provider: 05/22/23 16:58 History of Present Illness: ? Presents to the ER with complaints of suicidal ideations.? Patient said the world just coming down around him.? Last week patient lost his job, got really really drunk and decided to check himself into rehab down at [place] spent 3 days they are in when he got out felt that it he need just needed more time to help.? Patient is having bad thoughts of suicide.? Patient was on a bridge today and thought of jumping.? Since patient lost his job and is planning on moving in with his girlfriend and having major life stressors. He was admitted to the neuropsychiatric unit for the definitive treatment of those issues.? Patient presented today reporting that things are very stressed he reports that his anxiety is out of control and that he lost his job.? He reports that he is temporarily homeless and that he is moving into a new place next week with some woman that he has a relationship with.? He endorsed having suicidal thoughts but reports those have diminished.? He endorses a history of having anxiety helps with Klonopin.? He reports that his anxiety gets so [id number] that he has chest pains and feels like he might have a heart attack.? He endorses maybe having a cardiac history.? We reviewed his previous hospitalization from August of last year and an excerpt of that stay is included below for context and his report of limited/no substantive changes since that today.? Outside of his current living arrangement issues.? We discussed possible medications for his anxiety and he was very focused on not changing the Klonopin which we discussed that 2 mg p.o. 3 times daily is a very high dose.? He reports it has been very effective but cannot explain why he was always anxious if it is very effective.? He is not interested in any medications like SSRIs etc. reporting he knows what works.? He had initially talked about leaving AMA but then reported he would stay but he seemed quite ambivalent about this stay overall. Per his 09/25/2022 [facility] inpatient psychiatric discharge summary: Discharge Diagnosis (1) Panic disorder: ? ? ? Status: Acute (2) Alcohol dependence: ? ? ? Status: Acute (3) Benzodiazepine abuse: ? ? ? Status: Acute Reason for Visit Reason for Visit:?? Suicidal ideation? Brief History: History of Present Illness Rudy Crawford is a 42 year old male who had presented to his primary care nurse on 09/22/2020 2 in the morning requesting treatment for alcohol withdrawal.? He reports that he wishes to stop his consumption of alcohol and stated that he was having withdrawal symptoms as he had reported having last consumed alcohol on the night of 09/21/2022.? He had reported having consumed a gallon of fireball whiskey and reports having consumed a case of beer on a daily basis.? He reports his consumption of alcohol has been increasing since he was taken abruptly off of his prescribed Klonopin of 2 mg/day.? He had reported a previous history of panic attacks and considerable anxiety that had been worsening his cardiac problems.? He states that he had not been prescribed Klonopin for over a month.? He endorses a past history of withdrawal seizures although it is uncertain as to whether that was associated with withdrawal from benzodiazepines or alcohol.? He had acknowledged no depression but states that his panic attacks have been more frequent over the past few months.? He reports an extended history of chest pain shortness of breath difficulty swallowing and feeling like he is going to .? He reports that these panic attacks occur without triggers frequently. Current medications: gabapentin 300mg bid, hydrochlorothiazide/lisinopril: 25mg/20mg, hydroxyzine 25mg bid Previous admission on 06/22/2022 at [facility]: Rudy Crawford is a 42 year old single white male with a history of panic attacks coronary artery disease and hypertension who reports to the emergency department with suicidal ideation with a plan to jump off of a bridge.? He had reported that he had been feeling more depressed and reported uncontrolled anxiety over the past 3 months since he had ran out of his Klonopin 1 mg twice a day.? He had reported that he has had chronic panic attacks for many years with unknown triggered panic attacks lasting approximately 40 minutes with associated chest pain shortness of breath numbing and tingling in his fingers and difficulty with breathing.? He reports that his panic attacks have led him to the emergency department multiple times with complaints of chest pain.? He reports that he had a heart attack a few years ago and he has had these panic attacks since that time.? The patient reports being burdened by anxiety over the past few months.? He reports that he had been unable to receive his Klonopin in [place], [place] where he had moved.? He reports that he had recently moved back to the area and had not been able to see his primary care physician yet to get back on his Klonopin.? The patient had reported diminished energy low motivation and depressed mood for the past month.? He had endorsed having suicidal thoughts.? He denied any psychotic symptoms.? He denied any history of manic symptoms.? He had reported a long history of chronic worry since his heart attack occurred. Past psychiatric history: Patient has a history of 1 inpatient hospitalization 2 years ago for suicidal ideation at [facility] in [facility].? He had reported no history of psychotherapy but reports a history of having been treated for panic attacks and depression with medication trials on Lexapro and xanax.? He also reported a history of having been treated for opioid abuse with a history of having been in methadone clinic for a few years having last used methadone 6 years ago. Medical history: Chronic lower back pain peripheral vascular disease with claudication history of carotid stenosis history of hypertension, HTN Surgical history he has a history of placement of stent in the coronary artery he has a history of repair of a torn rotator cuff Allergies: Toradol Medications: Klonopin 1 mg twice a day aspirin 81 mg in the morning clonidine 0.1 mg twice a day nitroglycerin as needed Drug and alcohol history: He reports having begun use of opiates at the age of [age].? He had reported last use of opiates for treating pain few days ago.? He had reported a past history of methadone treatment but reports no substance abuse inpatient or rehabilitation in the past.? He had reported a past history of alcohol abuse but reports that he has not been drinking recently.? He denies any history of benzodiazepine misuse. Family psychiatric history: alcohol abuse-father Social History: Patient was born and raised in [facility].? He is currently living in [facility].? He has never been and has no children.? He was raised by his biological parents and is the youngest of 5.? He had graduated high school in 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 He denies any significant history of trauma.? He denies any history of legal issues. Update: Patient had endorsed recently having been hospitalized at [facility] in late July in an attempt to help with detoxification off of benzodiazepines and alcohol.? He reports that he had left and intensive inpatient rehabilitation facility in [place] in early August 2022.? His living situation is also changed he is currently staying with a friend near [facility]. Hospital Course Hospital Course He began to acclimate to the individual, group and milieu therapies provided. He was clearly invested in keeping his Klonopin dose where it was but not appreciating how high 2 mg p.o. 3 times daily of Klonopin is from a dosing standpoint. We began working on some possible options for aftercare but then he chose to leave AGAINST MEDICAL ADVICE. He was able to contract for safety outside of the hospital prior to discharge. During the hospitalization, patient had routine laboratory studies which were within normal limits except for few outliers.? Additionally there was a general medical evaluation which was also within normal limits and revealed no new acute processes.? ?At the time of discharge, lethality was denied and psychosis was resolving.? Mood and anxiety were well managed.? Patient endorsed a plan to avoid all drugs of abuse and follow-up with the aftercare recommendations of the treatment team. ? Patient was evaluated and deemed to be absent credible lethality, and was voluntary and denied any desire for continued inpatient hospitalization asking to be discharged AMA, so was discharged.? Involuntary Hold Information 96 Hour Hold: 96 Hour Involuntary Admission: No Mental Status Exam MSE Comments: This is an obese white male in hospital scrubs with adequate grooming and eye contact. Very robust womack. No abnormal movements except for mild psychomotor retardation. Mostly cooperative with exam and mild distress. Speech was slightly decreased rate normal volume. Mood described as better than yesterday I do not know if I want to stay here because it probably will not help my anxiety, affect slightly subdued. Thought process organized. Thought content: Patient denied suicidal or homicidal ideation, there were no delusions reported or noted, denied any auditory or visual hallucinations. Attention and concentration appeared intact and memory appeared mostly reliable but none were formally tested. He is alert and oriented x3. Insight, judgment and impulse control are limited. Discharge Data Studies Completed and Pending: Laboratory Results WBC 10.58 10^3/uL (3. 29-11.43) 05/22/23 17:08 RBC 5.04 10^6/uL (3.8 5-5.65) 05/22/23 17:08 Hgb 15.80 g/dL (11.27 -16.99) 05/22/23 17:08 Hct 47.8 % (37-53) 05/22/23 17:08 MCV 94.8 fl (82-101) 05/22/23 17:08 MCH 31.3 pg (27-33) 05/22/23 17:08 MCHC 33.1 g/dL (30-55) 05/22/23 17:08 RDW 13.2 % (12.1-15.1 ) 05/22/23 17:08 Plt Count 283 10^3/cmm (157 -399) 05/22/23 17:08 MPV 8.2 fL (7.4-10.4) 05/22/23 17:08 Neut % (Auto) 58.0 % 05/22/23 17:08 Lymph % (Auto) 30.1 % 05/22/23 17:08 [place] % (Auto) 8.8 % 05/22/23 17:08 Eos % (Auto) 1.6 % 05/22/23 17:08 Baso % (Auto) 1.0 % 05/22/23 17:08 Neut # (Auto) 6.14 10^3/uL (1.8 -7.7) 05/22/23 17:08 Lymph # (Auto) 3.2 10^3/uL (0.8- 4.8) 05/22/23 17:08 [place] # (Auto) 0.9 10^3/uL (0.2- 0.9) 05/22/23 17:08 Eos # (Auto) 0.2 10^3/uL (0.0- 0.8) 05/22/23 17:08 Baso # (Auto) 0.1 10^3/uL (0.0- 0.1) 05/22/23 17:08 Nucleated RBC % (a uto) 0 % 05/22/23 17:08 Nucleated RBCs # 0.0 /100WBC 05/22/23 17:08 Sodium 137 mmol/L (136-1 45) 05/22/23 17:08 Potassium 3.7 mmol/L (3.5-5 .1) 05/22/23 17:08 Chloride 102 mmol/L (98-10 7) 05/22/23 17:08 Carbon Dioxide 23 mmol/L (22-29) 05/22/23 17:08 Anion Gap 15.7 (5-19) 05/22/23 17:08 BUN 13 mg/dL (6-20) 05/22/23 17:08 Creatinine 0.9 mg/dL (0.7-1. 2) 05/22/23 17:08 GFR Calculation 91.7 mL/min (90-1 30) 05/22/23 17:08 Glucose 97 mg/dL (65-115) 05/22/23 17:08 Calculated Osmolal ity 284 mOsm/kg (285- 295) L 05/22/23 17:08 Calcium 9.0 mg/dL (8.5-10 .5) 05/22/23 17:08 Total Bilirubin 0.4 mg/dL (0.15-1 .2) 05/22/23 17:08 AST 45 U/L (0-40) H 05/22/23 17:08 ALT 76 U/L (0-41) H 05/22/23 17:08 Alkaline Phosphata se 72 U/L (40-130) 05/22/23 17:08 Total Protein 7.5 g/dL (6.6-8.7 ) 05/22/23 17:08 Albumin 4.4 g/dL (3.5-5.2 ) 05/22/23 17:08 Globulin 3.1 g/dL (1.3-4.6 ) 05/22/23 17:08 Urine Color Yellow (Yellow) 05/22/23 18:05 Urine Appearance Clear (CLEAR) 05/22/23 18:05 Urine pH 5 (5-7) 05/22/23 18:05 Ur Specific Gravit y 1.025 (1.005-1.0 30) 05/22/23 18:05 Urine Protein Trace (Negative) 05/22/23 18:05 Urine Glucose (UA) 2+ (Normal) H 05/22/23 18:05 Urine Ketones 1+ (Negative) H 05/22/23 18:05 Urine Blood Neg (Negative) 05/22/23 18:05 Urine Nitrate Negative (Negati ve) 05/22/23 18:05 Urine Bilirubin 1+ (Negative) H 05/22/23 18:05 Urine Urobilinogen 1 mg/dL (Negative ) H 05/22/23 18:05 Ur Leukocyte Devi ase Negative (Negati ve) 05/22/23 18:05 Urine RBC 0-4 /hpf (0-2) H 05/22/23 18:05 Urine WBC 0-4 /hpf (0-5) H 05/22/23 18:05 Ur Squamous Epith Cells 0-4 /hpf (0-5) H 05/22/23 18:05 Amorphous Sediment Not Reportable 05/22/23 18:05 Urine Bacteria Trace /hpf (NONE) 05/22/23 18:05 Urine Mucus 4+ /hpf 05/22/23 18:05 Salicylates < 0.3 mg/dL (3-10 ) L 05/22/23 17:08 Urine Opiates Scre en Negative ng/mL (N egative) 05/22/23 18:05 Acetaminophen < 5.0 ug/mL (10-3 0) L 05/22/23 17:08 Ur Barbiturates Sc reen Negative ng/mL (N egative) 05/22/23 18:05 Ur Phencyclidine S crn Negative ng/mL (N egative) 05/22/23 18:05 Ur Amphetamines Sc reen Negative ng/mL (N egative) 05/22/23 18:05 U Benzodiazepines Scrn Positive ng/mL (N egative) H 05/22/23 18:05 Urine Cocaine Scre en Negative ng/mL (N egative) 05/22/23 18:05 U Marijuana (THC) Screen Negative ng/mL (N egative) 05/22/23 18:05 Ethyl Alcohol 31 mg/dL (0-10) H 05/22/23 17:08 Vitals: Last Vital Signs Temp 97.7 F 05/23/23 06:00 Pulse 79 05/23/23 14:28 Resp 16 05/23/23 14:28 BP 157/88 05/23/23 14:28 Pulse Ox 96 05/23/23 14:28 O2 Del Method Room Air 05/23/23 14:00 Discharge Plan Discharge Patient Disposition: Left Against Medical Advice Condition: Stable Prescriptions: No Action clonidine HCl 0.1 mg tablet 0.1 mg PO TID PRN (Reason: Blood Pressure) Qty: 90 3RF tadalafil 10 mg tablet 10 mg PO EVERY OTHER DAY PRN (Reason: sexual activity) Qty: 7 3RF Rx Instructions: take one tab at least 30min before sexual activity; do not use more than 1 dose per 24hrs prednisone 20 mg tablet 40 mg PO DAILY 5 Days Qty: 10 0RF lisinopril-hydrochlorothiazide 20-25 mg tablet 1 tab PO QAM Qty: 30 0RF clonazepam 2 mg tablet 2 mg PO TID 30 Days Qty: 90 3RF Rx Instructions: Fill on or after 30-day interval aspirin 81 mg tablet,delayed release (DR/EC) 81 mg PO QAM Nitrostat 0.4 mg Tablet, Sublingual 0.4 mg SUBLINGUAL Q5M PRN (Reason: Chest Pain) Rx Instructions: do not exceed 3 doses per episode Kratom Powder See Rx Instructions .ROUTE .COMPLEX Rx Instructions: 3 spoonful po once a day methylprednisolone 4 mg tablets,dose pack See Rx Instructions .ROUTE .COMPLEX Qty: 21 0RF Rx Instructions: orally per package directions azithromycin 250 mg tablet See Rx Instructions .ROUTE .COMPLEX Qty: 6 0RF Rx Instructions: For 250 mg dose pack: take 500 mg today (day 1), then 250 mg for 4 days (days 2-5) Discharge Orders: Discharge Order (Routine); Ordered 05/23/23 Ordered By: Gigi Wagner Referrals: Nilesh Hutchinson MD [Primary Care Provider] - Discharge Diet: Regular Discharge Activity: Resume usual activity Patient Instructions: Opioid Safety Discharge Attestations [facility] Time Spent in Discharge Care*: greater than 30 min Specific Discharge Activities: Specific discharge activities: educating patient, discussing with test case developer/social workers/dc planners, documenting/other paperwork and evaluating patient/reviewing data Coding Level of Care Code Acute [facility] DC note Diagnoses Panic disorder F41.0 Alcohol dependence F10.20 Benzodiazepine abuse F13.10
== END 2023-05-23 14:29 | disposition left against medical advice (07) | DRG 880 ==
LOC: ER 17:39 → NP 18:05
PROVIDERS: Admitting Provider Psychiatry & Neurology Psychiatry; Emergency Provider Emergency Medicine; PCP Family Medicine Adult Medicine; Visit Provider Psychiatry & Neurology Psychiatry
DX: F41.0 Panic disorder [episodic paroxysmal anxiety] (principal); R45.851 Suicidal ideations; Z53.29 Procedure and treatment not carried out because of patient's decision for other reasons; Z59.00 Homelessness unspecified; Z91.148 Patient's other noncompliance with medication regimen for other reason; F10.20 Alcohol dependence, uncomplicated; Z81.1 Family history of alcohol abuse and dependence
CPT/HCPCS: 36415; 80053; 80306; 80307; 81001; 85025; 93005; 99239; 99285

== ENCOUNTER 2023-05-23 21:30 | Emergency (ER) | payer MEDICAID, SELFPAY ==
[2023-05-23 21:30] VITALS: BP 150/91; PULSE 94; RESP 18; TEMP 36.7; O2SAT 95; BMI 37.8
--- NOTE | 2023-05-23 21:35 | ECG_ITS ---
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 Measurements Intervals Evans Rate: 90 P: 34 WI: 148 QRS: 43 QRSD: 109 T: 60 QT: 379 QTc: 466 Interpretive Statements SINUS RHYTHM Compared to ECG 05/22/2023 17:41:44 Intraventricular conduction delay no longer present Electronically Signed On 05-24-2023 8:14:13 CDT by Michael Cabrera M.D. [id number]
[2023-05-23 21:45] VITALS: BP 150/91; PULSE 89; RESP 18; O2SAT 98
--- NOTE | 2023-05-23 21:46 | XRR_ITS ---
PROCEDURE INFORMATION: Exam: XR Chest Exam date and time: 05/23/2023 9:56 PM Age: 43 years old Clinical indication: Chest pressure; Patient HX: C/O chest pain; Additional info: Cp TECHNIQUE: Imaging protocol: Radiologic exam of the chest. Views: 1 view. COMPARISON: CR XR chest 1V portable [id number] 03/17/2023 2:32 PM FINDINGS: Lungs: Unremarkable. No consolidation. Pleural spaces: Unremarkable. No pleural effusion. No pneumothorax. Heart/Mediastinum: Unremarkable. No cardiomegaly. Bones/joints: Unremarkable. XR/XR chest 1V portable [id number] IMPRESSION: No acute findings.
[2023-05-23 21:53] LABS: Basophils # 0.1 10^3/uL (0.0-0.1); Basophils % 0.9 %; Eosinophils # 0.2 10^3/uL (0.0-0.8); Eosinophils % 1.6 %; Hematocrit 45.9 % (37-53); Lymphocytes # 3.5 10^3/uL (0.8-4.8); Lymphocytes % 34.2 %; Mean Corpuscular HGB Conc 33.8 g/dL (30-55); Mean Corpuscular Hemoglobin 31.3 pg (27-33); Mean Corpuscular Volume 92.7 fl (82-101); Mean Platelet Volume 8.7 fL (7.4-10.4); Monocytes # 0.7 10^3/uL (0.2-0.9); Monocytes % 6.8 %; Neutrophils # 5.71 10^3/uL (1.8-7.7); Neutrophils % 55.8 %; Nucleated Red Blood Cells % 0 %; Platelet Count 327 10^3/cmm (157-399); Red Blood Count 4.95 10^6/uL (3.85-5.65); Red Cell Distribution Width 12.8 % (12.1-15.1); White Blood Count 10.23 10^3/uL (3.29-11.43)
[2023-05-23] MEDS: ondansetron 2 mg/ML SDV 2 mL 4 MG IVP (21:58)
[2023-05-23 21:59] VITALS: RESP 16; O2SAT 99
[2023-05-23] MEDS: fentaNYL 50 mcg/mL INJ 2mL 100 MCG IVP (21:59)
[2023-05-23 22:02] VITALS: BP 146/95; PULSE 86
[2023-05-23] MEDS: nitroglycerin 1 gm/inch oint Pkt 1 INCH TOPICAL (22:02)
[2023-05-23 22:13] LABS: Troponin(5th) Baseline 8 ng/L (0-15)
[2023-05-23 22:22] LABS: Alanine Aminotransferase 68 U/L (0-41); Albumin Level 4.2 g/dL (3.5-5.2); Alkaline Phosphatase 68 U/L (40-130); Aspartate Amino Transferase 39 U/L (0-40); Blood Urea Nitrogen 11 mg/dL (6-20); Calcium 8.6 mg/dL (8.5-10.5); Carbon Dioxide 21 mmol/L (22-29); Chloride 104 mmol/L (98-107); Creatine Phosphokinase 232 U/L (39-308); Creatinine Clr Calc Pharmacy 164.2248; Globulin 2.8 g/dL (1.3-4.6); Glomerular Filtration Rate 122.5 mL/min (90-130); Glucose 125 mg/dL (65-115); NT Pro B Type Natriuretic Pept 90 pg/mL (0-125); Osmolality Calculated 289 mOsm/kg (285-295); Sodium 139 mmol/L (136-145); Total Bilirubin 0.3 mg/dL (0.15-1.2)
[2023-05-23 22:25] LABS: Anion Gap 17.5 (5-19); Potassium 3.5 mmol/L (3.5-5.1)
--- NOTE | 2023-05-23 22:25 | W.ED.CHESTPA ---
HPI - Chest Pain General: Chief Complaint: Chest Pain Stated Complaint: Chest pain Time Seen by Provider: 05/23/23 21:34 History of Present Illness: 43-year-old male smoker with a history of coronary disease. He says that his last stent was placed 4 years ago I believe. He notes that 3 years ago he had a negative stress test. He presents with chest discomfort, like an elephant . He notes that his neck hurts as well. The neck pain does not increase with movement of his neck. He is mildly short of breath. He is nauseated. He says that his left hand is numb. He says this started around 2 hours ago. He has had aspirin and nitroglycerin without significant relief. MD complaint: chest pain Pertinent past history: coronary artery disease Associated symptoms: Reports dyspnea and nausea; Deny abdominal pain, fever(s), palpitations or vomiting Review of Systems Const: Denies: fever(s) ENMT: Denies: throat pain Card: Reports: chest pain; Denies: palpitations Resp: Reports: dyspnea and non-productive cough; Denies: productive cough GI: Reports: nausea; Denies: abdominal pain or vomiting Musc: Reports: neck pain; Denies: back pain PFSH ED PFSH: Medical History Benzodiazepine abuse 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 Chronic low back pain Chronic pain in left shoulder Had pain present when seen 12/2021 on his first visit and thought he might have a rotator cuff tear then Cigarette smoker Claudication in peripheral vascular disease Since [place] 2018 with walking 100 yards or less Dental caries associated with enamel hypomineralization Depression Erectile dysfunction Generalized anxiety disorder with panic attacks Hx of carotid stenosis Hypertension Prediabetes Torn rotator cuff Social History Smoking and tobacco status: current every day smoker cigarettes Packs smoked per day: 2 Alcohol intake: current Alcohol intake frequency: few times a week Substance/Drug Use: never Marital status: Single Number of children: 0 Current occupational status: employed Physical Exam Const: GENERAL APPEARANCE: cooperative and anxious HENMT: COMMON NORMALS: normocephalic, atraumatic and Normal external nose present HEAD & SCALP: normocephalic and atraumatic FACE & SINUS: normal facial exam and face symmetric NOSE: Normal external nose present Eye: COMMON NORMALS: Equal, round and reactive pupils present and EOMs intact bilaterally PUPIL: Yes Equal, round and reactive pupils present Neck/C-Spine: GENERAL: Yes trachea midline Chest: CHEST: Yes Symmetrical chest wall rise Resp: COMMON NORMALS: normal respiratory effort, No retractions, No use of accessory muscles and clear to auscultation bilaterally AUSCULTATION: clear to auscultation bilaterally Cardio: COMMON NORMALS: regular rate and regular rhythm RATE: regular rate RHYTHM: regular rhythm GI: COMMON NORMALS: Normal to inspection, nondistended, normoactive bowel sounds present Extremity: COMMON NORMALS: no pedal edema Neuro: FARHAD COMA SCALE: document GCS findings [place] coma scale eye opening: Spontaneous Farhad coma scale verbal response: Orientated [place] coma scale motor response: Obey commands Farhad coma scale total score: 15 SENSORY EXAM: Yes extremities (intact) Psych: COMMON NORMALS: speech normal SPEECH: Yes normal speech Skin: COMMON NORMALS: no rashes or lesions noted GENERAL SKIN EXAM: no rashes or lesions noted Course Vital Signs: Vital signs: Vital Signs Temperature 98.1 F 05/23/23 21:30 Pulse Rate 78 05/24/23 00:22 Respiratory Rate 16 05/23/23 23:45 Blood Pressure 119/75 05/24/23 00:22 Pulse Oximetry 97 05/24/23 00:22 Oxygen Delivery Me thod Room Air 05/23/23 23:45 MDM - Chest Pain Medical Decision Making 43-year-old male patient with history of coronary disease presenting with chest discomfort and neck discomfort. His CBC is normal. His BMP is not remarkable. His chest x-ray is negative. First troponin is 8 with a delta of 2.3 at 2 hours. CK is 232. BNP is 90. EKG shows a sinus rhythm with normal axis normal intervals a rate of [address] changes. Pain is improved after morphine and Zofran here. He remained nauseated, so haloperidol was used which helped significantly. Heart rate currently 75. Blood pressure 119/75. Oxygen saturations are normal on room air. He will be allowed discharge to outpatient follow-up to return for any worsening symptoms. Lab Data 05/23/23 21:19 05/23/23 21:19 Radiology Impressions Chest X-Ray 05/23/23 21:46 IMPRESSION: No acute findings. Laboratory Results WBC 10.23 10^3/uL (3.29-11.43) 05/23/23 21:19 RBC 4.95 10^6/uL (3.85-5.65) 05/23/23 21:19 Hgb 15.50 g/dL (11.27-16.99) 05/23/23 21:19 Hct 45.9 % (37-53) 05/23/23 21:19 MCV 92.7 fl (82-101) 05/23/23 21:19 MCH 31.3 pg (27-33) 05/23/23 21:19 MCHC 33.8 g/dL (30-55) 05/23/23 21:19 RDW 12.8 % (12.1-15.1) 05/23/23 21:19 Plt Count 327 10^3/cmm (157-399) 05/23/23 21:19 MPV 8.7 fL (7.4-10.4) 05/23/23 21:19 Neut % (Auto) 55.8 % 05/23/23 21:19 Lymph % (Auto) 34.2 % 05/23/23 21:19 [place] % (Auto) 6.8 % 05/23/23 21:19 Eos % (Auto) 1.6 % 05/23/23 21:19 Baso % (Auto) 0.9 % 05/23/23 21:19 Neut # (Auto) 5.71 10^3/uL (1.8-7.7) 05/23/23 21:19 Lymph # (Auto) 3.5 10^3/uL (0.8-4.8) 05/23/23 21:19 [place] # (Auto) 0.7 10^3/uL (0.2-0.9) 05/23/23 21:19 Eos # (Auto) 0.2 10^3/uL (0.0-0.8) 05/23/23 21:19 Baso # (Auto) 0.1 10^3/uL (0.0-0.1) 05/23/23 21:19 Nucleated RBC % (auto) 0 % 05/23/23 21:19 Nucleated RBCs # 0.0 /100WBC 05/23/23 21:19 Sodium 139 mmol/L (136-145) 05/23/23 21:19 Potassium 3.5 mmol/L (3.5-5.1) 05/23/23 21:19 Chloride 104 mmol/L (98-107) 05/23/23 21:19 Carbon Dioxide 21 mmol/L (22-29) L 05/23/23 21:19 Anion Gap 17.5 (5-19) 05/23/23 21:19 BUN 11 mg/dL (6-20) 05/23/23 21:19 Creatinine 0.7 mg/dL (0.7-1.2) 05/23/23 21:19 GFR Calculation 122.5 mL/min (90-130) 05/23/23 21:19 Glucose 125 mg/dL (65-115) H 05/23/23 21:19 Calculated Osmolality 289 mOsm/kg (285-295) 05/23/23 21:19 Calcium 8.6 mg/dL (8.5-10.5) 05/23/23 21:19 Total Bilirubin 0.3 mg/dL (0.15-1.2) 05/23/23 21:19 AST 39 U/L (0-40) 05/23/23 21:19 ALT 68 U/L (0-41) H 05/23/23 21:19 Alkaline Phosphatase 68 U/L (40-130) 05/23/23 21:19 Creatine Kinase 232 U/L (39-308) 05/23/23 21:19 Troponin T Baseline 8 ng/L (0-15) 05/23/23 21:19 Troponin T 120 Minute 10.35 ng/L (0-15) 05/23/23 23:33 Delta Troponin T 2.35 ABS# (0-10) 05/23/23 23:33 NT-Pro-B Natriuret Pep 90 pg/mL (0-125) 05/23/23 21:19 Total Protein 7.0 g/dL (6.6-8.7) 05/23/23 21:19 Albumin 4.2 g/dL (3.5-5.2) 05/23/23 21:19 Globulin 2.8 g/dL (1.3-4.6) 05/23/23 21:19 Discharge Plan Discharge Patient Disposition: Home Clinical Impression: CAD (coronary artery disease), Chest pain Condition: Stable Prescriptions: No Action clonidine HCl 0.1 mg tablet 0.1 mg PO TID PRN (Reason: Blood Pressure) Qty: 90 3RF tadalafil 10 mg tablet 10 mg PO EVERY OTHER DAY PRN (Reason: sexual activity) Qty: 7 3RF Rx Instructions: take one tab at least 30min before sexual activity; do not use more than 1 dose per 24hrs prednisone 20 mg tablet 40 mg PO DAILY 5 Days Qty: 10 0RF lisinopril-hydrochlorothiazide 20-25 mg tablet 1 tab PO QAM Qty: 30 0RF clonazepam 2 mg tablet 2 mg PO TID 30 Days Qty: 90 3RF Rx Instructions: Fill on or after 30-day interval aspirin 81 mg tablet,delayed release (DR/EC) 81 mg PO QAM Nitrostat 0.4 mg Tablet, Sublingual 0.4 mg SUBLINGUAL Q5M PRN (Reason: Chest Pain) Rx Instructions: do not exceed 3 doses per episode Kratom Powder See Rx Instructions .ROUTE .COMPLEX Rx Instructions: 3 spoonful po once a day methylprednisolone 4 mg tablets,dose pack See Rx Instructions .ROUTE .COMPLEX Qty: 21 0RF Rx Instructions: orally per package directions azithromycin 250 mg tablet See Rx Instructions .ROUTE .COMPLEX Qty: 6 0RF Rx Instructions: For 250 mg dose pack: take 500 mg today (day 1), then 250 mg for 4 days (days 2-5) Discharge Orders: Discharge ED (Routine); Ordered 05/24/23 Ordered By: Zay Beckman Referrals: Nilesh Hutchinson MD [Primary Care Provider] - 1-3 days Patient Instructions: Chest Pain (ED), Opioid Safety, Pain Management Coding Level of Care Code ED [employer] for Adam Adair
[2023-05-23] MEDS: haloperidol inj 5 mg/mL INJ 1 mL 3 MG IVP (23:39)
[2023-05-23 23:40] VITALS: RESP 18; O2SAT 96
[2023-05-23] MEDS: morphine 4 mg/mL SDV 1 mL IVP (23:40)
[2023-05-23 23:45] VITALS: BP 133/103; PULSE 84; RESP 16; O2SAT 95
--- NOTE | 2023-05-23 23:46 | ECG_ITS ---
[facility] Test Date: 2023-05-23 Pat Name: Rudy Crawford Department: Room: Gender: Male [employer]: : 1980 Requested By: Zay Atkinson Order Number: [id number] James MD: Michael Cabrera M.D. Measurements Intervals [place] Rate: 81 P: 48 MS: 179 QRS: 42 QRSD: 109 T: 51 QT: 395 QTc: 461 Interpretive Statements SINUS RHYTHM Compared to ECG 05/22/2023 17:41:44 Intraventricular conduction delay no longer present Electronically Signed On 05-24-2023 8:14:18 CDT by Michael Cabrera M.D. [email or web address]
[2023-05-24 00:12] LABS: Troponin 5 2HR 10.35 ng/L (0-15); Troponin 5 2HR Delta 2.35 ABS# (0-10)
[2023-05-24 00:22] VITALS: BP 119/75; PULSE 78; O2SAT 97
== END 2023-05-24 00:18 | disposition home or self-care (01) ==
PROVIDERS: Emergency Provider Emergency Medicine; PCP Family Medicine Adult Medicine
DX: R07.9 Chest pain, unspecified (principal); I25.10 Atherosclerotic heart disease of native coronary artery without angina pectoris; Z79.82 Long term (current) use of aspirin; F17.210 Nicotine dependence, cigarettes, uncomplicated; I10 Essential (primary) hypertension
CPT/HCPCS: 36415; 71045; 80053; 82550; 83880; 84484; 85025; 93005; 96374; 96375; 99285; J1630; J2270; J2405; J3010

== ENCOUNTER 2023-07-23 14:26 | Inpatient (IN) | payer MEDICAID, SELFPAY ==
[2023-07-23 14:26] VITALS: BP 153/99; PULSE 86; RESP 18; TEMP 36.7; O2SAT 97; BMI 37.3
[2023-07-23 14:38] VITALS: BP 153/99; PULSE 86; RESP 18; O2SAT 97
--- NOTE | 2023-07-23 14:57 | ED.C_ITS ---
HPI - Psych General: Chief Complaint: Psychiatric Symptoms Stated Complaint: psych eval Time Seen by Provider: 07/23/23 14:37 Source: patient Mode of arrival: ambulatory History of Present Illness: 43-year-old male presents emergency room complaining of suicidal ideation and depression. He has a history of chronic alcohol abuse he states he was discharged yesterday from [facility] felt it did not help him he was advised to follow-up with mental health services he has not done that he comes in today stating he wants to get this eludes he does not have anywhere to go and is homeless. He states he is under a lot of stress and has been thinking of harming self by jumping off of a bridge. complaint: suicidal ideation and feels depressed Duration: constant History of same: Yes Relieving factors: none Exacerbating factors: none Associated psychiatric symptoms: depression and suicidal ideation If self harm: admits thoughts of self harm and has plan Review of Systems Const: Denies: fever(s) or chills Card: Denies: chest pain Resp: Denies: dyspnea GI: Denies: abdominal pain : Denies: dysuria, urinary frequency or urinary urgency Musc: Denies: neck pain or back pain Skin/Breast: Denies: rash PFSH ED PFSH: Medical History Benzodiazepine abuse 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 Chronic low back pain Chronic pain in left shoulder Had pain present when seen 12/2021 on his first visit and thought he might have a rotator cuff tear then Cigarette smoker Claudication in peripheral vascular disease Since 2018 with walking 100 yards or less Dental caries associated with enamel hypomineralization Depression Erectile dysfunction Generalized anxiety disorder with panic attacks Hx of carotid stenosis Hypertension Prediabetes Torn rotator cuff Social History Smoking and tobacco/nicotine status: current every day tobacco/nicotine user cigarettes Packs smoked per day: 2 Alcohol intake: current Alcohol intake frequency: few times a week Substance/Drug Use: never Marital status: Single Number of children: 0 Current occupational status: employed Physical Exam Const: COMMON NORMALS: no acute distress GENERAL APPEARANCE: cooperative and comfortable ORIENTATION/CONSCIOUSNESS: Yes awake, Yes oriented to person, Yes oriented to place and Yes oriented to time HENMT: COMMON NORMALS: normocephalic, atraumatic and hearing grossly normal bilaterally HEAD & SCALP: normocephalic and atraumatic Resp: COMMON NORMALS: normal respiratory effort, No retractions, No use of accessory muscles and clear to auscultation bilaterally AUSCULTATION: clear to auscultation bilaterally Cardio: COMMON NORMALS: regular rate, regular rhythm and No murmurs present (Cardio) RATE: regular rate RHYTHM: regular rhythm GI: COMMON NORMALS: Soft to palpation and No hepatosplenomegaly present AUSCULTATION: Yes normoactive bowel sounds PALPATION: Yes Soft to palpation, No Tenderness to palpation present (GI), No Guarding due to palpation present (GI) and Yes No hepatosplenomegaly present Extremity: COMMON NORMALS: normal to inspection, capillary refill normal, no clubbing, cyanosis or edema, no calf tenderness and no pedal edema Neuro: SENSORIUM/ORIENTATION: Yes oriented to person, Yes oriented to place and Yes oriented to time Skin: COMMON NORMALS: no rashes or lesions noted GENERAL SKIN EXAM: no r ashes or lesions noted Course Vital Signs: Vital signs: Vital Signs Temperature 97.7 F 07/29/23 06:00 Pulse Rate 72 07/29/23 06:00 Respiratory Rate 18 07/29/23 06:00 Blood Pressure 116/79 07/29/23 06:00 Pulse Oximetry 94 07/29/23 06:00 Oxygen Delivery Me thod Room Air 07/29/23 06:00 MDM - Psych Medical Decision Making Patient expressing suicidal ideation and was just discharged from [facility] yesterday. We are trying to get the records for this I discussed Dr. barroso he is family with this patient and recommends admission. Orders written for admission medically cleared at the time be seen in the emergency room. Noted that at the time we send a chart off he had had further testing done including chest x-ray and CTA of the chest these were not done in the emergency room. On an inpatient basis because of the EMR functions they were added to this note. Medical Records I reviewed the patient's medical records. Lab Data I reviewed the patient's lab results. 07/25/23 02:00 07/23/23 15:04 Radiology Impressions Chest X-Ray 07/24/23 19:28 IMPRESSION: Bibasilar atelectasis versus minimal infiltrate left greater than right. Chest CTA 07/24/23 20:46 IMPRESSION: 1. Negative for pulmonary embolus, aorta intact. 2. Bilateral dependent atelectasis. 3. Coronary artery atherosclerotic calcifications. 4. Hepatic steatosis 5. Right middle lobe 6.9 mm pleural based pulmonary nodule.For patients at low risk (minimal or absent history of smoking and of other known risk factors), recommend CT Chest at 6-12 months, then consider CT Chest at 18-24 months. For patients at high risk (history of smoking or of other known risk factors), recommend CT Chest at 6-12 months, then [address] Chest at 18-24 months. (Reference: Jared) REFERENCES: Jared Handy, et al. Guidelines for Management of Incidental Pulmonary Nodules Detected on CT Images: From the Fleischner Society 2017. Radiology. 2017;284(1):228-243. Laboratory Results WBC 9.29 10^3/uL (3.29-11.43) 07/23/23 15:04 RBC 5.27 10^6/uL (3.85-5.65) 07/23/23 15:04 Hgb 16.00 g/dL (11.27-16.99) 07/23/23 15:04 Hct 47.0 % (37-53) 07/23/23 15:04 MCV 89.2 fl (82-101) 07/23/23 15:04 MCH 30.4 pg (27-33) 07/23/23 15:04 MCHC 34.0 g/dL (30-55) 07/23/23 15:04 RDW 11.8 % (12.1-15.1) L 07/23/23 15:04 Plt Count 289 10^3/cmm (157-399) 07/23/23 15:04 MPV 8.0 fL (7.4-10.4) 07/23/23 15:04 Neut % (Auto) 47.7 % 07/23/23 15:04 Lymph % (Auto) 41.1 % 07/23/23 15:04 [place] % (Auto) 7.6 % 07/23/23 15:04 Eos % (Auto) 1.5 % 07/23/23 15:04 Baso % (Auto) 0.9 % 07/23/23 15:04 Neut # (Auto) 4.43 10^3/uL (1.8-7.7) 07/23/23 15:04 Lymph # (Auto) 3.8 10^3/uL (0.8-4.8) 07/23/23 15:04 [place]fe # (Auto) 0.7 10^3/uL (0.2-0.9) 07/23/23 15:04 Eos # (Auto) 0.1 10^3/uL (0.0-0.8) 07/23/23 15:04 Baso # (Auto) 0.1 10^3/uL (0.0-0.1) 07/23/23 15:04 Nucleated RBC % (auto) 0 % 07/23/23 15:04 Nucleated RBCs # 0.0 /100WBC 07/23/23 15:04 Sodium 135 mmol/L (136-145) L 07/23/23 15:04 Potassium 3.7 mmol/L (3.5-5.1) 07/23/23 15:04 Chloride 98 mmol/L (98-107) 07/23/23 15:04 Carbon Dioxide 26 mmol/L (22-29) 07/23/23 15:04 Anion Gap 14.7 (5-19) 07/23/23 15:04 BUN 8 mg/dL (6-20) 07/23/23 15:04 Creatinine 0.8 mg/dL (0.7-1.2) 07/23/23 15:04 GFR Calculation 105.0 mL/min (90-130) 07/23/23 15:04 Glucose 150 mg/dL (65-115) H 07/23/23 15:04 Calculated Osmolality 281 mOsm/kg (285-295) L 07/23/23 15:04 Calcium 9.6 mg/dL (8.5-10.5) 07/23/23 15:04 Total Bilirubin 0.2 mg/dL (0.15-1.2) 07/23/23 15:04 AST 36 U/L (0-40) 07/23/23 15:04 ALT 67 U/L (0-41) H 07/23/23 15:04 Alkaline Phosphatase 75 U/L (40-130) 07/23/23 15:04 Total Protein 7.1 g/dL (6.6-8.7) 07/23/23 15:04 Albumin 4.1 g/dL (3.5-5.2) 07/23/23 15:04 Globulin 3.0 g/dL (1.3-4.6) 07/23/23 15:04 Salicylates < 0.3 mg/dL (3-10) L 07/23/23 15:04 Acetaminophen < 5.0 ug/mL (10-30) L 07/23/23 15:04 Ethyl Alcohol < 10 mg/dL (0-10) 07/23/23 15:04 No radiology studies performed this visit Discharge Plan Discharge Patient Disposition: Admitted As Inpatient Admit Provider: Keny Andrews Clinical Impression: Suicidal ideation, Alcohol dependence, Depression Condition: Stable Coding Level of Care Code ED [employer] for Adam Adair
[2023-07-23 15:08] LABS: Basophils # 0.1 10^3/uL (0.0-0.1); Basophils % 0.9 %; Eosinophils # 0.1 10^3/uL (0.0-0.8); Eosinophils % 1.5 %; Lymphocytes # 3.8 10^3/uL (0.8-4.8); Lymphocytes % 41.1 %; Mean Corpuscular Hemoglobin 30.4 pg (27-33); Mean Corpuscular Volume 89.2 fl (82-101); Monocytes # 0.7 10^3/uL (0.2-0.9); Monocytes % 7.6 %; Neutrophils # 4.43 10^3/uL (1.8-7.7); Neutrophils % 47.7 %; Nucleated Red Blood Cells % 0 %; Platelet Count 289 10^3/cmm (157-399); Red Blood Count 5.27 10^6/uL (3.85-5.65); Red Cell Distribution Width 11.8 % (12.1-15.1); White Blood Count 9.29 10^3/uL (3.29-11.43)
[2023-07-23 15:30] LABS: Alanine Aminotransferase 67 U/L (0-41); Albumin Level 4.1 g/dL (3.5-5.2); Alkaline Phosphatase 75 U/L (40-130); Anion Gap 14.7 (5-19); Aspartate Amino Transferase 36 U/L (0-40); Blood Urea Nitrogen 8 mg/dL (6-20); Calcium 9.6 mg/dL (8.5-10.5); Carbon Dioxide 26 mmol/L (22-29); Chloride 98 mmol/L (98-107); Glucose 150 mg/dL (65-115); Osmolality Calculated 281 mOsm/kg (285-295); Potassium 3.7 mmol/L (3.5-5.1); Sodium 135 mmol/L (136-145); Total Bilirubin 0.2 mg/dL (0.15-1.2); Total Protein 7.1 g/dL (6.6-8.7)
[2023-07-23 15:36] LABS: Acetaminophen < 5.0 ug/mL (10-30); Alcohol Level < 10 mg/dL (0-10); Salicylate < 0.3 mg/dL (3-10)
[2023-07-23 18:10] VITALS: BP 140/87; PULSE 81; RESP 16; TEMP 36.8; O2SAT 97
[2023-07-23 19:41] VITALS: BP 123/78; PULSE 81; RESP 18; TEMP 36.6; O2SAT 94
[2023-07-23] MEDS: propranolol 20 mg Tablet PO (20:10)
[2023-07-23] MEDS: gabapentin 300 mg Capsule 900 MG PO (20:10)
[2023-07-23] MEDS: quetiapine 300 mg Tablet PO (20:10)
[2023-07-23] MEDS: CLONazepam 1 mg Tablet 2 MG PO (20:10)
[2023-07-23] MEDS: calcium carbonate 500 mg Chew Tablet 1000 MG PO (20:36)
[2023-07-24 06:00] VITALS: BP 131/79; PULSE 73; RESP 18; TEMP 36.4; O2SAT 96
[2023-07-24] MEDS: gabapentin 300 mg Capsule 900 MG PO ×3 (07:53→20:46)
[2023-07-24] MEDS: hydroCHLOROthiazide 25 mg Tablet PO (07:53)
[2023-07-24 07:57] VITALS: BP 130/70
[2023-07-24] MEDS: cloNIDine 0.1 mg Tablet PO (07:57)
[2023-07-24] MEDS: lisinopril 20 mg Tablet PO (07:57)
[2023-07-24] MEDS: propranolol 20 mg Tablet PO ×3 (07:57→20:46)
[2023-07-24] MEDS: CLONazepam 1 mg Tablet 2 MG PO ×3 (07:58→20:46)
[2023-07-24] MEDS: nicotine 21 mg Patch 1 PATCH TRANSDERMA (08:03)
--- NOTE | 2023-07-24 09:30 | PC.NURSE ---
Called [facility] in [facility]. Patient had the following medications dropped off at a facility where he was located on 07/22/23: klonopin 1mg BID Trazodone 50mg 1 tab at HS propranolol 20mg TID gabapentin 900mg TID seroquel 300mg at HS
--- NOTE | 2023-07-24 13:21 | P.NPUHP_ITS ---
Providers/Chief Complaint Admitting Physician: Keny Andrews MD Primary Care Provider: Nilesh Hutchinson MD Chief Complaint: psych eval HPI [facility] History of Present Illness Rudy Crawford is a 43 year old male recently discharged last month from the neuropsychiatric unit who presented to the emergency room complaining of suicidal ideation and continued depression. The patient had stated that he had been discharged from [place] yesterday and reports that over the past 4 days his Klonopin had been decreased from 6 mg a day to 2 mg a day within a short period of time. He reports some irritability and agitation since this reduction. He had denied having used alcohol for the past few weeks. He reports that he has been homeless. He had reported that he had been struggling with panic attacks as well. Patient had stated that he has been feeling more hopeless and worthless. He reports sleep continuity disruption. He had reported that he was hopeful of finding a mcfp in the nearby area. He reports no acute changes otherwise and stated above. Current medications: gabapentin, aspirin, lisinopril, propranolol, quetiapine, trazodone, klonopin Previous discharge summary from [facility] on 06/04/23 History of Present Illness Rudy Crawford is a 43 year old male who presented to the emergency department with the following report: Chief Complaint: Psychiatric Symptoms Stated Complaint: mag Time Seen by Provider: 05/22/23 16:58 History of Present Illness: ? Presents to the ER with complaints of suicidal ideations.? Patient said the world just coming down around him.? Last week patient lost his job, got really really drunk and decided to check himself into rehab down at [place] spent 3 days they are in when he got out felt that it he need just needed more time to help.? Patient is having bad thoughts of suicide.? Patient was on a bridge today and thought of jumping.? Since patient lost his job and is planning on moving in with his girlfriend and having major life stressors. He was admitted to the neuropsychiatric unit for the definitive treatment of those issues.? Patient presented today reporting that things are very stressed he reports that his anxiety is out of control and that he lost his job.? He reports that he is temporarily homeless and that he is moving into a new place next week with some woman that he has a relationship with.? He endorsed having suicidal thoughts but reports those have diminished.? He endorses a history of having anxiety helps with Klonopin.? He reports that his anxiety gets so [id number] that he has chest pains and feels like he might have a heart attack.? He endorses maybe having a cardiac history.? We reviewed his previous hospitalization from August of last year and an excerpt of that stay is included below for context and his report of limited/no substantive changes since that today.? Outside of his current living arrangement issues.? We discussed possible medications for his anxiety and he was very focused on not changing the Klonopin which we discussed that 2 mg p.o. 3 times daily is a very high dose.? He reports it has been very effective but cannot explain why he was always anxious if it is very effective.? He is not interested in any medications like SSRIs etc. reporting he knows what works.? He had initially talked about leaving AMA but then reported he would stay but he seemed quite ambivalent about this stay overall. Per his 09/25/2022 [facility] inpatient psychiatric discharge summary: Discharge Diagnosis (1) Panic disorder: ? ? ? Status: Acute (2) Alcohol dependence: ? ? ? Status: Acute (3) Benzodiazepine abuse: ? ? ? Status: Acute Reason for Visit Reason for Visit:?? Suicidal ideation? Brief History: History of Present Illness Rudy Crawford is a 42 year old male who had presented to his primary care nurse on 09/22/2020 2 in the morning requesting treatment for alcohol withdrawal.? He reports that he wishes to stop his consumption of alcohol and stated that he was having withdrawal symptoms as he had reported having last consumed alcohol on the night of 09/21/2022.? He had reported having consumed a gallon of fireball whiskey and reports having consumed a case of beer on a daily basis.? He reports his consumption of alcohol has been increasing since he was taken abruptly off of his prescribed Klonopin of 2 mg/day.? He had reported a previous history of panic attacks and considerable anxiety that had been worsening his cardiac problems.? He states that he had not been prescribed Klonopin for over a month.? He endorses a past history of withdrawal seizures although it is uncertain as to whether that was associated with withdrawal from benzodiazepines or alcohol.? He had acknowledged no depression but states that his panic attacks have been more frequent over the past few months.? He reports an extended history of chest pain shortness of breath difficulty swallowing and feeling like he is going to .? He reports that these panic attacks occur without triggers frequently. Current medications: gabapentin 300mg bid, hydrochlorothiazide/lisinopril: 25mg/20mg, hydroxyzine 25mg bid Previous [facility] on 06/22/2022 at [facility]: Rudy Crawford is a 42 year old single white male with a history of panic attacks coronary artery disease and hypertension who reports to the emergency department with suicidal ideation with a plan to jump off of a bridge.? He had reported that he had been feeling more depressed and reported uncontrolled anxiety over the past 3 months since he had ran out of his Klonopin 1 mg twice a day.? He had reported that he has had chronic panic attacks for many years with unknown triggered panic attacks lasting approximately 40 minutes with associated chest pain shortness of breath numbing and tingling in his fingers and difficulty with breathing.? He reports that his panic attacks have led him to the emergency department multiple times with complaints of chest pain.? He reports that he had a heart attack a few years ago and he has had these panic attacks since that time.? The patient reports being burdened by anxiety over the past few months.? He reports that he had been unable to receive his Klonopin in [place], [place] where he had moved.? He reports that he had recently moved back to the area and had not been able to see his primary care physician yet to get back on his Klonopin.? The patient had reported diminished energy low motivation and depressed mood for the past month.? He had endorsed having suicidal thoughts.? He denied any psychotic symptoms.? He denied any history of manic symptoms.? He had reported a long history of chronic worry since his heart attack occurred. Past psychiatric history: Patient has a history of 1 inpatient hospitalization 2 years ago for suicidal ideation at [facility] in [facility].? He had reported no history of psychotherapy but reports a history of having been treated for panic attacks and depression with medication trials on Lexapro and xanax.? He also reported a history of having been treated for opioid abuse with a history of having been in methadone clinic for a few years having last used methadone 6 years ago. Medical history: Chronic lower back pain peripheral vascular disease with claudication history of carotid stenosis history of hypertension, HTN Surgical history he has a history of placement of stent in the coronary artery he has a history of repair of a torn rotator cuff Allergies: Toradol Medications: Klonopin 1 mg twice a day aspirin 81 mg in the morning clonidine 0.1 mg twice a day nitroglycerin as needed Drug and alcohol history: He reports having begun use of opiates at the age of [age].? He had reported last use of opiates for treating pain few days ago.? He had reported a past history of methadone treatment but reports no substance abuse inpatient or rehabilitation in the past.? He had reported a past history of alcohol abuse but reports that he has not been drinking recently.? He denies any history of benzodiazepine misuse. Family psychiatric history: alcohol abuse-father Social History: Patient was born and raised in [facility].? He is currently living in [facility].? He has never been and has no children.? He was raised by his biological parents and is the youngest of 5.? He had graduated high school in 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 He denies any significant history of trauma.? He denies any history of legal issues. Update: Patient had endorsed recently having been hospitalized at [facility] in late July in an attempt to help with detoxification off of benzodiazepines and alcohol.? He reports that he had left and intensive inpatient rehabilitation facility in [place] in early August 2022.? His living situation is also changed he is currently staying with a friend near [facility]. Hospital Course Hospital Course He began to acclimate to the individual, group and milieu therapies provided.? He was clearly invested in keeping his Klonopin dose where it was but not appreciating how high 2 mg p.o. 3 times daily of Klonopin is from a dosing standpoint.? We began working on some possible options for aftercare but then he chose to leave AGAINST MEDICAL ADVICE.? He was able to contract for safety outside of the hospital prior to discharge.? During the hospitalization, patient had routine laboratory studies which were within normal limits except for few outliers.? Additionally there was a general medical evaluation which was also within normal limits and revealed no new acute processes.? ?At the time of discharge, lethality was denied and psychosis was resolving.? Mood and anxiety were well managed.? Patient endorsed a plan to avoid all drugs of abuse and follow-up with the aftercare recommendations of the treatment team.? Patient was evaluated and deemed to be absent credible lethality, and was voluntary and denied any desire for continued inpatient hospitalization asking to be discharged AMA, so was discharged.? Meds NPU Home Medications Medication Instructions Recorded Confirmed Last Taken Type aspirin 81 mg tablet,delayed 81 mg PO QAM 10/29/22 07/23/23 07/23/23 History release nitroglycerin 0.4 mg sublingual 0.4 mg sublingual Q5M PRN Chest 02/16/23 07/23/23 02/16/23 History tablet (Nitrostat) Pain clonazepam 2 mg tablet 2 mg PO TID anxiety/panic attacks 04/06/23 07/23/23 07/23/23 Rx 30 days #90 tabs lisinopril 20 1 tab PO QAM blood pressure #30 04/06/23 07/23/23 07/23/23 Rx mg-hydrochlorothiazide 25 mg tablet tabs clonidine HCl 0.1 mg tablet 0.1 mg PO TID PRN Blood Pressure 07/23/23 07/23/23 Unknown History gabapentin 300 mg capsule 900 mg PO TID 07/23/23 07/23/23 07/23/23 History nicotine 21 mg/24 hr daily 1 patch topical DAILY 07/23/23 07/23/23 07/22/23 History transdermal patch propranolol 20 mg tablet 20 mg PO TID 07/23/23 07/23/23 07/23/23 History quetiapine 300 mg tablet 300 mg PO BEDTIME 07/23/23 07/23/23 07/22/23 History trazodone 50 mg tablet 50 mg PO BEDTIME PRN Sleep 07/23/23 07/23/23 07/22/23 History Allergies Allergy/AdvReac Type Severity Reaction Status Date / Time codeine Allergy ALGY-Hives Verified 07/23/23 14:32 ketorolac [From Toradol] Allergy ALGY-Hives Verified 07/23/23 14:32 PFSH NPU PFS: Medical History Benzodiazepine abuse 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 Chronic low back pain Chronic pain in left shoulder Had pain present when seen 12/2021 on his first visit and thought he might have a rotator cuff tear then Cigarette smoker Claudication in peripheral vascular disease Since [place] 2018 with walking 100 yards or less Dental caries associated with enamel hypomineralization Depression Erectile dysfunction Generalized anxiety disorder with panic attacks Hx of carotid stenosis Hypertension Prediabetes Torn rotator cuff Social History Smoking and tobacco/nicotine status: current every day tobacco/nicotine user cigarettes Packs smoked per day: 2 Alcohol intake: current Alcohol intake frequency: few times a week Substance/Drug Use: never Marital status: Single Number of children: 0 Current occupational status: employed Mental Status Exam MSE Comments: This is an obese white male in hospital scrubs with adequate grooming and eye contact. Very robust womack. Mild tremor billaterally appreciated along with psychomotor retardation He was cooperative with exam and in moderate distress. Speech was slightly decreased rate normal volume. Mood described anxious. His affect was mood congruent and anxious. Thought process was linear and organized. Thought content: Patient denied suicidal or homicidal ideation, there were no delusions reported or noted, He denied any auditory or visual hallucinations. Attention and concentration appeared intact and memory appeared mostly reliable but none were formally tested. He is alert and oriented x3. Insight, judgment and impulse control are poor. Vitals/I&O/Wt Last Vital Signs Temp 97.5 F L 07/24/23 06:00 Pulse 73 07/24/23 06:00 Resp 18 07/24/23 06:00 BP 130/70 07/24/23 07:57 Pulse Ox 96 07/24/23 06:00 O2 Del Method Room Air 07/24/23 06:00 Weight last 48 hrs Weight 107.955 kg Data NPU 07/23/23 15:04 07/23/23 15:04 A&P Assessment and plan (1) Major depressive disorder: (2) Panic disorder: (3) Alcohol dependence: (4) Generalized anxiety disorder with panic attacks: Plan Patient is a 43-year-old white male admitted with vague suicidal ideation, worsening anxiety and daily panic attacks, along with alcohol dependence currently reporting abrupt discontinuation of benzodiazepines abruptly one month ago. 1. Continue current medication. Explore whether 2 mg p.o. 3 times daily of Klonopin is appropriate. add lexapro to target anxiety and depression. 2.? Encourage individual, group and milieu therapy 3.? Continue q-15 minute check for safety 4.? Recommend sober living treatment at the highest level of care to which the patient is willing to commit. Involuntary Hold Information 96 Hour Hold: 96 Hour Involuntary Admission: No Attestations NPU Medical Necessity Statement*: Inpatient hospitalization is medically necessary and clinically appropriate int ervention at this time. We will monitor medications and make changes as indicated. Patient will be in the hospital for over 2 midnights. His likely length of stay is 3 to 5 days. Coding Level of Care Code Acute Code for g Fwd Diagnoses Major depressive disorder F32.9 Panic disorder F41.0 Alcohol dependence F10.20 Generalized anxiety disorder with panic attacks F41.1; F41.0
[2023-07-24 13:22] VITALS: BP 99/62; PULSE 78; RESP 15; TEMP 36.4; O2SAT 94
--- NOTE | 2023-07-24 18:58 | ECG_ITS ---
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 Measurements Intervals [place] Rate: 79 P: 33 VT: 164 QRS: 47 QRSD: 126 T: 32 QT: 390 QTc: 448 Interpretive Statements SINUS RHYTHM Compared to ECG 05/23/2023 23:46:02 No significant changes Electronically Signed On 07-25-2023 10:20:03 CDT by Michael Cabrera M.D. [id number]
--- NOTE | 2023-07-24 19:28 | XRR_ITS ---
PROCEDURE INFORMATION: Exam: XR Chest Exam date and time: 07/24/2023 7:54 PM Age: 43 years old Clinical indication: Chest pressure; Prior surgery; Surgery date: 6+ months; Surgery type: Cardiac stent; Patient HX: Chest pain; HX mi TECHNIQUE: Imaging protocol: Radiologic exam of the chest. Views: 1 view. COMPARISON: CR (CHEST, ) 05/23/2023 9:56 PM FINDINGS: Lungs: Bibasilar atelectasis versus minimal infiltrate left greater than right. Pleural spaces: Unremarkable. No pleural effusion. No pneumothorax. Heart/Mediastinum: Unremarkable. No cardiomegaly. Bones/joints: Unremarkable. XR/XR chest 1V portable [id number] IMPRESSION: Bibasilar atelectasis versus minimal infiltrate left greater than right.
[2023-07-24 19:55] VITALS: BP 115/74; PULSE 78; RESP 15; TEMP 36.4; O2SAT 98
[2023-07-24 20:32] LABS: Troponin(5th) Baseline < 6 ng/L (0-15)
[2023-07-24] MEDS: quetiapine 300 mg Tablet PO (20:46)
--- NOTE | 2023-07-24 20:46 | CTR_ITS ---
PROCEDURE INFORMATION: Exam: CTA Chest With Contrast Exam date and time: 07/24/2023 9:15 PM Age: 43 years old Clinical indication: Chest pressure; Prior surgery; Surgery date: 6+ months; Surgery type: Coronary stent x2; Patient HX: C/O stabbing chest pain. History of mi. ; Additional info: Stabbing chest pain, assess for dissection, or major pe TECHNIQUE: Imaging protocol: Computed tomographic angiography of the chest with contrast. Exam focused on the arteries. 3D rendering (Not supervised by radiologist): MIP and/or 3D reconstructed images were created by the technologist. Radiation optimization: All CT scans at this facility use at least one of these dose optimization techniques: automated exposure control; mA and/or kV adjustment per patient size (includes targeted exams where dose is matched to clinical indication); or iterative reconstruction. Contrast material: OMNI 350; Contrast volume: 100 ml; Contrast route: INTRAVENOUS (IV); REPORTING DATA: Count of CT and Cardiac NM exams in prior 12 months: This patient has received 0 known CTs and 0 known cardiac nuclear medicine studies in the 12 months prior to the current study. COMPARISON: CR (CHEST, ) 07/24/2023 7:54 PM RADIATION DOSE METRICS: Total DLP (mGy-cm): 1041.19 FINDINGS: Pulmonary arteries: Normal. No pulmonary emboli. Aorta: Unremarkable. No aortic aneurysm. No aortic dissection. Lungs: Bilateral dependent atelectasis. Right middle lobe 6.9 mm pleural based pulmonary nodule. Pleural spaces: Unremarkable. No pneumothorax. No pleural effusion. Heart: Unremarkable. No cardiomegaly. No pericardial effusion. Coronary arteries: Coronary artery atherosclerotic calcifications. Lymph nodes: Unremarkable. No enlarged lymph nodes. Liver: Hepatic steatosis. Bones/joints: Unremarkable. No acute fracture. Soft tissues: Unremarkable. CT/CT angio chest [id number] IMPRESSION: 1. Negative for pulmonary embolus, aorta intact. 2. Bilateral dependent atelectasis. 3. Coronary artery atherosclerotic calcifications. 4. Hepatic steatosis 5. Right middle lobe 6.9 mm pleural based pulmonary nodule.For patients at low risk (minimal or absent history of smoking and of other known risk factors), recommend CT Chest at 6-12 months, then consider CT Chest at 18-24 months. For patients at high risk (history of smoking or of other known risk factors), recommend CT Chest at 6-12 months, then CT Chest at 18-24 months. (Reference: Jared) REFERENCES: Jared Handy, et al. Guidelines for Management of Incidental Pulmonary Nodules Detected on CT Images: From the Fleischner Society 2017. Radiology. 2017;284(1):228-243.
--- NOTE | 2023-07-24 20:47 | P.CONIM_ITS ---
Providers/Reason For Consult Consulting Physician/Specialty*: Dr. Andrews/psychiatry Reason for Consult*: Chest pain Attending Physician: Keny Andrews MD Primary Care Provider: Nilesh Hutchinson MD History of Present Illness History of Present Illness Rudy Crawford is a 43 year old gentleman, on aspirin, admitted to the psychiatric unit for additional assessment management of major depressive disorder, primary disorder, alcohol dependence, PIERRE, started having chest pain, central to left side, heaviness, but also stabbing pain through the center of his chest radiating to the back and into his left arm, feeling like his arm is being pulled out . Review of Systems Const: Denies: fever(s), chills, body aches or malaise ENMT: Denies: throat pain Card: Reports: chest pain; Denies: edema, pre-syncope or dyspnea on exertion Resp: Denies: dyspnea, productive cough, change in phlegm color or hemoptysis GI: Denies: abdominal pain, nausea, vomiting, diarrhea, constipation, he matochezia or melena : Denies: flank pain, difficulty urinating, urinary frequency or hematuria Musc: Reports: extremity pain (Some pain radiating down from L buttock down the side of the L thigh) and other (There is pain on palpation of the sternum/anterior chest.); Denies: back pain, joint swelling or joint redness Skin/Breast: Denies: rash or new lesions Neuro: Denies: headache(s), numbness in extremities, weakness in extremities, dizziness, confusion or seizure-like activity Endo: Denies: polyuria or polydipsia Medications/Allergies Home Medications Medication Instructions Recorded Confirmed Last Taken Type aspirin 81 mg tablet,delayed 81 mg PO QAM 10/29/22 07/23/23 07/23/23 History release nitroglycerin 0.4 mg sublingual 0.4 mg sublingual Q5M PRN Chest 02/16/23 07/23/23 02/16/23 History tablet (Nitrostat) Pain clonazepam 2 mg tablet 2 mg PO TID anxiety/panic attacks 04/06/23 07/23/23 07/23/23 Rx 30 days #90 tabs lisinopril 20 1 tab PO QAM blood pressure #30 04/06/23 07/23/23 07/23/23 Rx mg-hydrochlorothiazide 25 mg tablet tabs clonidine HCl 0.1 mg tablet 0.1 mg PO TID PRN Blood Pressure 07/23/23 07/23/23 Unknown History gabapentin 300 mg capsule 900 mg PO TID 07/23/23 07/23/23 07/23/23 History nicotine 21 mg/24 hr daily 1 patch topical DAILY 07/23/23 07/23/23 07/22/23 History transdermal patch propranolol 20 mg tablet 20 mg PO TID 07/23/23 07/23/23 07/23/23 History quetiapine 300 mg tablet 300 mg PO BEDTIME 07/23/23 07/23/23 07/22/23 History trazodone 50 mg tablet 50 mg PO BEDTIME PRN Sleep 07/23/23 07/23/23 07/22/23 History Allergies Allergy/AdvReac Type Severity Reaction Status Date / Time codeine Allergy ALGY-Hives Verified 07/23/23 14:32 ketorolac [From Toradol] Allergy ALGY-Hives Verified 07/23/23 14:32 Current Medications Generic Name Dose Route Start Last Admin Trade Name Nasirq PRN Reason Stop Dose Admin Calcium Carbonate 1,000 mg 07/23/23 20:32 07/23/23 20:36 Calcium Carbonate 500 Mg Chew Tablet PO 1,000 mg Q4H PRN Administration INDIGESTION Clonazepam 2 mg 07/24/23 15:00 07/24/23 14:39 Clonazepam 1 Mg Tablet PO 2 mg TID BATOOL Administration Clonidine HCl 0.1 mg 07/23/23 19:46 07/24/23 07:57 Clonidine 0.1 Mg Tablet PO 0.1 mg TID PRN Administration Blood Pressure Gabapentin 900 mg 07/23/23 21:00 07/24/23 14:39 Gabapentin 300 Mg Capsule PO 900 mg TID BATOOL Administration Hydrochlorothiazide 25 mg 07/24/23 09:00 07/24/23 07:53 Hydrochlorothiazide 25 Mg Tablet PO 25 mg DAILY BATOOL Administration Lisinopril 20 mg 07/24/23 09:00 07/24/23 07:57 Lisinopril 20 Mg Tablet PO 20 mg DAILY BATOOL Administration Nicotine 1 patch 07/23/23 18:10 07/24/23 08:03 Nicotine 21 Mg Patch TRANSDERMA 1 patch DAILY PRN Administration NICOTINE WITHDRAWAL Propranolol HCl 20 mg 07/23/23 21:00 07/24/23 14:39 Propranolol 20 Mg Tablet PO 20 mg TID BATOOL Administration Quetiapine Fumarate 300 mg 07/23/23 21:00 07/23/23 20:10 Quetiapine 300 Mg Tablet PO 300 mg BEDTIME BATOOL Administration PFSH Acute PFSH: Medical History Benzodiazepine abuse 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 Chronic low back pain Chronic pain in left shoulder Had pain present when seen 12/2021 on his first visit and thought he might have a rotator cuff tear then Cigarette smoker Claudication in peripheral vascular disease Since 2017 with walking 100 yards or less Dental caries associated with enamel hypomineralization Depression Erectile dysfunction Generalized anxiety disorder with panic attacks Hx of carotid stenosis Hypertension Prediabetes Torn rotator cuff Social History Smoking and tobacco/nicotine status: current every day tobacco/nicotine user cigarettes Packs smoked per day: 2 Alcohol intake: current Alcohol intake frequency: few times a week Substance/Drug Use: never Marital status: Single Number of children: 0 Current occupational status: employed Vitals/I&O/Wt Last Vital Signs Temp 97.5 F L 07/24/23 19:55 Pulse 78 07/24/23 19:55 Resp 15 07/24/23 19:55 BP 115/74 07/24/23 19:55 Pulse Ox 98 07/24/23 19:55 O2 Del Method Room Air 07/24/23 19:55 Weight last 48 hrs Weight 107.955 kg Physical Exam Const: COMMON NORMALS: patient oriented x3 and alert GENERAL APPEARANCE: cooperative ORIENTATION/CONSCIOUSNESS: Yes awake HENMT: COMMON NORMALS: oropharynx normal Neck/C-Spine: COMMON NORMALS: no JVD Resp: COMMON NORMALS: normal respiratory effort and clear to auscultation bilaterally AUSCULTATION: clear to auscultation bilaterally Cardio: COMMON NORMALS: no JVD, regular rhythm, S1 normal heart sound present, S2 normal heart sound present and No murmurs present (Cardio) RHYTHM: regular rhythm HEART SOUNDS: S1 normal heart sound present and S2 normal heart sound present GI: COMMON NORMALS: Normal to inspection, nondistended, normoactive bowel sounds present, Soft to palpation and non-tender PALPATION: Yes Soft to palpation Extremity: COMMON NORMALS: no joint enlargement and no pedal edema Neuro: COMMON NORMALS: patient oriented x3 and moves all extremities SENSORIUM/ORIENTATION: Yes alert Skin: COMMON NORMALS: no rashes or lesions noted GENERAL SKIN EXAM: no rashes or lesions noted Data 07/23/23 15:04 07/23/23 15:04 A&P Assessment and plan (1) Chest pain: Chest heaviness but also stabbing pain radiating to the back and left arm and left arm feels like it has been pulled out , history of CAD with prior stenting 5 years ago. Vitals reviewed. EKG obtained, reviewed, on my interpretation not suggestive of acute OR. Complete troponin EKG series. Chest x-ray obtained, reviewed, possible infiltrate left lower lung on my interpretation, pending radiology read. Discussed with him some possibility of pneumonia. However, given nature of the pain discussed with him obtaining CT angiogram to further assess for possible aortic dissection given symptoms, discussed risks with IV contrast, benefits, alternatives. Nitroglycerin as needed. Continue aspirin. Propranolol. Statin. Reviewed troponin, reviewed D-dimer, both unremarkable. Low risk of PE. Pain is somewhat reducible, if no abnormality revealed on work-up suspect this m ay be likely costochondritis, versus possibly some pneumonia developing, although he is not having pleuritic discomfort. We will obtain respiratory viral panel. He is also feeling anxious which may be contributing. He is about to get his evening anxiety medicine. Plan MDD Panic disorder Alcohol dependence PIERRE Continue management as per psychiatry on neuropsychiatric unit. Consult Attestations Medical Necessity Statement: Requires continued hospitalization for management of psychiatric condition, additional evaluation of chest pain. Diagnoses Chest pain R07.9
[2023-07-24] MEDS: nitroglycerin 0.4 mg sublingual Tablet SUBLINGUAL ×2 (20:52→20:59)
--- NOTE | 2023-07-24 21:25 | ECG_ITS ---
[facility] Test Date: 2023-07-24 Pat Name: Rudy Crawford Department: Room: 125 Gender: Male Mental Health Unit Lead Psychologist: : 1980 Requested By: Rigoberto Correia Order Number: [id number] Erika MD: Michael Cabrera M.D. Measurements Intervals [place] Rate: 75 P: 21 NC: 183 QRS: 54 QRSD: 113 T: 44 QT: 393 QTc: 440 Interpretive Statements SINUS RHYTHM MODERATE INTRAVENTRICULAR CONDUCTION DELAY [110+ ms QRS DURATION] Compared to ECG 07/24/2023 19:06:00 Intraventricular conduction delay now present Electronically Signed On 07-25-2023 10:27:26 CDT by Michael Cabrera M.D. [id number]
[2023-07-24] MEDS: iohexol 350 mg/mL 500 mL Btl (per mL) IV (21:26)
[2023-07-24] MEDS: pantoprazole DR 40 mg Tablet PO (21:30)
[2023-07-24] MEDS: aspirin 325 mg Tablet PO (21:30)
[2023-07-24] MEDS: atorvastatin 40 mg Tablet PO (21:30)
[2023-07-24] MEDS: TRAMadol 50 mg Tablet 100 MG PO (21:35)
[2023-07-24 22:10] LABS: Troponin 5 2HR 6.98 ng/L (0-15); Troponin 5 2HR Delta 0.98001 ABS# (0-10)
--- NOTE | 2023-07-25 01:09 | PC.NURSE ---
At 1830 pt told [email or web address] staff that he was having chest pain. After report pt told this medical technical writer it feels like someone is standing on my chest he reported that the pain was on the left side of his chest, all down his left arm and his upper back. He rated the pain a 10/10. Hospitalist was notified and a stat EKG, chest x-ray, CT with contrast, Troponin, and D-dimer was ordered. Pt asked for an anxiety med so he was given clonazepam 2mg PO. Hospitalist ordered nitroglycerin sublingual tab 0.4mg Q5min PRN for chest pain. Pt was given the first nitro tablet at 2052, after 5 minutes his BP was 114/71. The second nitro tablet was given at 2057, after 5 minutes his BP was 101/65. The 3rd nitro tablet was held due to the patients blood pressure being too low. Pt was taken to CT @2114. When pt arrived back on the unit he was still complaining of chest pain. Hospitalist was notifed and a one time order for tramadol 100mg PO was given. 30 minutes later pt was asleep and was rated a 0/10 on FLACC pain scale at 2135.
--- NOTE | 2023-07-25 01:25 | ECG_ITS ---
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 Measurements Intervals [place] Rate: 69 P: 5 MO: 170 QRS: 30 QRSD: 128 T: 27 QT: 407 QTc: 437 Interpretive Statements SINUS RHYTHM POSSIBLE INFERIOR MYOCARDIAL INFARCTION , PROBABLY OLD [30 ms Q WAVE IN II/aVF] Compared to ECG 07/24/2023 22:21:45 Myocardial infarct finding now present Intraventricular conduction delay no longer present Electronically Signed On 07-25-2023 10:24:14 CDT by Michael Cabrera M.D. [id number]
[2023-07-25 02:14] LABS: Basophils # 0.1 10^3/uL (0.0-0.1); Basophils % 0.6 %; Eosinophils # 0.2 10^3/uL (0.0-0.8); Hematocrit 44.8 % (37-53); Lymphocytes # 3.8 10^3/uL (0.8-4.8); Lymphocytes % 48.1 %; Mean Corpuscular HGB Conc 33.7 g/dL (30-55); Mean Corpuscular Hemoglobin 30.1 pg (27-33); Mean Corpuscular Volume 89.2 fl (82-101); Monocytes # 0.6 10^3/uL (0.2-0.9); Neutrophils # 3.15 10^3/uL (1.8-7.7); Neutrophils % 40.4 %; Nucleated Red Blood Cells % 0 %; Platelet Count 231 10^3/cmm (157-399); Red Blood Count 5.02 10^6/uL (3.85-5.65); Red Cell Distribution Width 11.9 % (12.1-15.1); White Blood Count 7.83 10^3/uL (3.29-11.43)
[2023-07-25 02:36] LABS: Troponin 5 6HR 6.27 ng/L (0-15); Troponin 5 6HR Delta 0.27001 ng/L (0-12)
[2023-07-25 06:00] VITALS: BP 111/75; PULSE 69; RESP 16; TEMP 36.4; O2SAT 94
[2023-07-25] MEDS: CLONazepam 1 mg Tablet 2 MG PO ×3 (08:00→20:25)
[2023-07-25] MEDS: aspirin 325 mg Tablet PO (08:00)
[2023-07-25] MEDS: pantoprazole DR 40 mg Tablet PO (08:01)
[2023-07-25] MEDS: lidocaine 5% Patch 1 PATCH TOPICAL (08:01)
[2023-07-25] MEDS: escitalopram 10 mg Tablet PO (08:01)
[2023-07-25] MEDS: hydroCHLOROthiazide 25 mg Tablet PO (08:01)
[2023-07-25] MEDS: lisinopril 20 mg Tablet PO (08:01)
[2023-07-25] MEDS: gabapentin 300 mg Capsule 900 MG PO ×2 (08:01→17:12)
[2023-07-25] MEDS: propranolol 20 mg Tablet PO ×3 (08:01→20:26)
[2023-07-25] MEDS: nicotine 21 mg Patch 1 PATCH TRANSDERMA (08:06)
--- NOTE | 2023-07-25 13:10 | W.PM.NPUPNS ---
Subjective NPU Subjective: 43-year-old white male with a history of panic attacks depression and generalized anxiety disorder admitted with suicidal ideation. The patient had reported that he had been taken off of his Klonopin very rapidly over the past 3 weeks. He states that he had been able to stop the use of alcohol for over a month. He had stated that he understands that his Klonopin needed to be reduced but stated that the reduction was too rapid. He reported no side effects from his medication other than the gabapentin which he states makes him feel loopy . Patient was compliant on the milieu. He had reported having chest pain yesterday but also stated that his rotator cuff was torn and required surgery. Mental Status Exam MSE Comments: This is an obese white male in hospital scrubs with adequate grooming and eye contact. Very robust womack. Mild tremor billaterally appreciated along with psychomotor retardation He was cooperative with exam and in moderate distress. Speech was slightly decreased in rate and normal volume. Mood reported as anxious. His affect was mood congruent and anxious. Thought process was linear and organized. Thought content: Patient denied suicidal or homicidal ideation, there were no delusions reported or noted, He denied any auditory or visual hallucinations. Attention and concentration appeared intact and memory appeared mostly reliable but none were formally tested. He is alert and oriented x3. Insight, judgment and impulse control are poor. Vitals/I&O/Wt Last Vital Signs Temp 97.5 F L 07/25/23 06:00 Pulse 69 07/25/23 06:00 Resp 16 07/25/23 06:00 BP 111/75 07/25/23 06:00 Pulse Ox 94 07/25/23 06:00 O2 Del Method Room Air 07/25/23 06:00 Weight last 48 hrs Weight 109.86 kg Weight 109.86 kg Weight 107.955 kg Data NPU 07/25/23 02:00 07/23/23 15:04 A&P Assessment and plan (1) Major depressive disorder: (2) Panic disorder: (3) Alcohol dependence: (4) Generalized anxiety disorder with panic attacks: Plan Patient is a 43-year-old white male admitted with vague suicidal ideation, worsening anxiety and daily panic attacks, along with alcohol dependence currently reporting abrupt discontinuation of benzodiazepines abruptly one month ago. 1. Continue Klonopin at 2mg tid with reduction by .5mg every two weeks. Increase lexapro 20mg daily to target depression and anxiety. Patient reports no benefit from Gabapentin and agreeable to reduction to gabapentin to 900mg bid. 2.? Encourage individual, group and milieu therapy 3.? Continue q-15 minute check for safety 4.? Recommend sober living treatment at the highest level of care to which the patient is willing to commit. Involuntary Hold Information 96 Hour Hold: 96 Hour Involuntary Admission: No Attestations NPU Medical Necessity Statement*: Inpatient hospitalization is medically necessary and clinically appropriate intervention at this time. We will monitor medications and make changes as indicated. His likely length of stay is 3 to 5 days. Coding Level of Care Code Acute Code for [facility] Fwd Diagnoses Major depressive disorder F32.9 Panic disorder F41.0 Alcohol dependence F10.20 Generalized anxiety disorder with panic attacks F41.1; F41.0
[2023-07-25 14:00] VITALS: BP 104/70; PULSE 86; RESP 16; TEMP 36.8; O2SAT 98
--- NOTE | 2023-07-25 14:01 | PM.MISC ---
Miscellaneous Note Purpose of Documentation: Hospitalist follow-up Note: Troponins are negative EKG was negative. Likely costochondritis. Recommend Naprosyn 500 mg twice daily for 7 days
[2023-07-25] MEDS: acetaminophen 325 mg Tablet 650 MG PO (14:39)
[2023-07-25] MEDS: atorvastatin 40 mg Tablet PO (20:25)
[2023-07-25] MEDS: quetiapine 300 mg Tablet PO (20:26)
[2023-07-25 20:36] VITALS: BP 107/86; PULSE 82; RESP 18; TEMP 36.7; O2SAT 95
[2023-07-25 21:05] VITALS: PULSE 88; RESP 17; O2SAT 97
[2023-07-26 06:00] VITALS: BP 119/85; PULSE 78; RESP 16; O2SAT 92
[2023-07-26] MEDS: benztropine 1 mg Tablet PO (08:01)
[2023-07-26] MEDS: CLONazepam 1 mg Tablet 2 MG PO ×3 (08:01→20:18)
[2023-07-26] MEDS: gabapentin 300 mg Capsule 900 MG PO ×2 (08:01→17:13)
[2023-07-26] MEDS: pantoprazole DR 40 mg Tablet PO (08:01)
[2023-07-26] MEDS: hydroCHLOROthiazide 25 mg Tablet PO (08:01)
[2023-07-26] MEDS: propranolol 20 mg Tablet PO ×3 (08:01→20:18)
[2023-07-26] MEDS: escitalopram 10 mg Tablet 20 MG PO (08:01)
[2023-07-26 08:02] VITALS: BP 114/80
[2023-07-26] MEDS: cloNIDine 0.1 mg Tablet PO (08:02)
[2023-07-26] MEDS: lisinopril 20 mg Tablet PO (08:09)
[2023-07-26] MEDS: lidocaine 5% Patch 1 PATCH TOPICAL (10:22)
[2023-07-26 13:50] VITALS: BP 102/68; PULSE 74; RESP 16; TEMP 36.6; O2SAT 94
--- NOTE | 2023-07-26 14:08 | W.PM.NPUPNS ---
Subjective NPU Subjective: 43-year-old white male with a history of panic attacks depression and generalized anxiety disorder admitted with suicidal ideation. Patient had continue to report some depression. He reported that he was homeless but was willing to find a nursing home. He had requested that he be given tramadol to help him with his pain issues. He had reported no current side effects from his medication. Patient had stated that he has been sober without alcohol for over a month. He had reported no panic attacks with the resumption of his Klonopin as previously prescribed. Patient had been redirectable on the milieu. He reported that he was willing to receive follow-up for his problems with his mood on an outpatient basis. Mental Status Exam MSE Comments: This is an obese white male in hospital scrubs with adequate grooming and eye contact. There is no evidence of any abnormal involuntary motor movements tics or tremors appreciated. He was cooperative with exam and in mild distress. Speech was slightly decreased in rate and normal volume. Mood reported as anxious. His affect was mood congruent and anxious. Thought process was linear and organized. Thought content: Patient denied suicidal or homicidal ideation, there were no delusions reported or noted, He denied any auditory or visual hallucinations. Attention and concentration appeared intact and memory appeared mostly reliable but none were formally tested. He is alert and oriented x3. Insight, judgment and impulse control are limited. Vitals/I&O/Wt Last Vital Signs Temp 98 F 07/26/23 13:50 Pulse 74 07/26/23 13:50 Resp 16 07/26/23 13:50 BP 102/68 07/26/23 13:50 Pulse Ox 94 07/26/23 13:50 O2 Del Method Room Air 07/26/23 13:50 Weight last 48 hrs Weight 109.86 kg Weight 109.86 kg Data NPU 07/25/23 02:00 07/23/23 15:04 A&P Assessment and plan (1) Major depressive disorder: (2) Panic disorder: (3) Alcohol dependence: (4) Generalized anxiety disorder with panic attacks: Plan Patient is a 43-year-old white male admitted with vague suicidal ideation, worsening anxiety and daily panic attacks, along with alcohol dependence currently reporting abrupt discontinuation of benzodiazepines abruptly one month ago. 1. Continue Klonopin at 2mg tid with reduction by .5mg every two weeks. Continue lexapro 20mg daily to target depression and anxiety. Patient reports no benefit from Gabapentin and agreeable to reduction to gabapentin to 900mg bid. 2.? Encourage individual, group and milieu therapy 3.? Continue q-15 minute check for safety 4.? Recommend sober living treatment at the highest level of care to which the patient is willing to commit. Involuntary Hold Information 96 Hour Hold: 96 Hour Involuntary Admission: No Attestations NPU Medical Necessity Statement*: Inpatient hospitalization is medically necessary and clinically appropriate intervention at this time. We will monitor medications and make changes as indicated. His likely length of stay is 2-3 days. Coding Level of Care Code Acute Code for [facility] Fwd Diagnoses Major depressive disorder F32.9 Panic disorder F41.0 Alcohol dependence F10.20 Generalized anxiety disorder with panic attacks F41.1; F41.0
[2023-07-26] MEDS: quetiapine 300 mg Tablet PO (20:18)
[2023-07-26] MEDS: atorvastatin 40 mg Tablet PO (20:19)
[2023-07-26 20:41] VITALS: BP 103/72; PULSE 74; RESP 18; TEMP 36.3; O2SAT 95
[2023-07-27 06:00] VITALS: BP 115/77; PULSE 72; RESP 18; TEMP 36.5; O2SAT 96
[2023-07-27] MEDS: gabapentin 300 mg Capsule 900 MG PO ×2 (08:19→17:38)
[2023-07-27] MEDS: CLONazepam 1 mg Tablet 2 MG PO ×3 (08:19→20:12)
[2023-07-27] MEDS: lisinopril 20 mg Tablet PO (08:20)
[2023-07-27] MEDS: propranolol 20 mg Tablet PO ×3 (08:20→20:12)
[2023-07-27] MEDS: pantoprazole DR 40 mg Tablet PO (08:20)
[2023-07-27] MEDS: lidocaine 5% Patch 1 PATCH TOPICAL (08:20)
[2023-07-27] MEDS: escitalopram 10 mg Tablet 20 MG PO (08:20)
[2023-07-27] MEDS: hydroCHLOROthiazide 25 mg Tablet PO (08:20)
[2023-07-27 13:50] LABS: Adenovirus Not Detected (NOT DETECT); Chlamydia Pneumoniae Not Detected (NOT DETECT); Coronavirus 229E,HKU1,NL63,OC4 Not Detected (NOT DETECT); Human Metapneumovirus Not Detected (NOT DETECT); Human Rhinovirus/Enterovirus Not Detected (NOT DETECT); Influenza A Not Detected (NOT DETECT); Influenza A H1 Not Detected (NOT DETECT); Influenza A H1-2009 Not Detected (NOT DETECT); Influenza A H3 Not Detected (NOT DETECT); Influenza B Not Detected (NOT DETECT); Mycoplasma Pneumoniae Not Detected (NOT DETECT); Parainfluenza Virus Type 1 Not Detected (NOT DETECT); Parainfluenza Virus Type 2 Not Detected (NOT DETECT); Parainfluenza Virus Type 3 Not Detected (NOT DETECT); Parainfluenza Virus Type 4 Not Detected (NOT DETECT); Respiratory Syncytial Virus A Not Detected (NOT DETECT); Respiratory Syncytial Virus B Not Detected (NOT DETECT); SARS-COV-2 Not Detected (NOT DETECT)
[2023-07-27 14:00] VITALS: BP 113/78; PULSE 73; RESP 16; TEMP 36.3; O2SAT 98
[2023-07-27] MEDS: naltrexone hcl 50 mg Tablet PO (14:10)
--- NOTE | 2023-07-27 15:58 | P.NPUPN_ITS ---
Subjective NPU Subjective: 43-year-old white male with a history of panic attacks depression and generalized anxiety disorder admitted with suicidal ideation. Patient had reported that he had felt ready to try to remain sober. He had reported occasional cravings for alcohol. He had reported interest in consideration for treating alcohol and abuse with naltrexone. Patient reported no side effects from his current medication regimen. The patient had reported diminished anxiety when taking the Klonopin with no reports of any panic attacks currently. He had reported nearly 6 weeks of no alcohol use. Patient had continue to report some depression. He reported that he was homeless but was willing to find a halfway. He had requested that he be given tramadol to help him with his pain issues. He had reported no current side effects from his medication. Patient had stated that he has been sober without alcohol for over a month. He had reported no panic attacks with the resumption of his Klonopin as previously prescribed. Patient had been redirectable on the milieu. He reported that he was willing to receive follow-up for his problems with his mood on an outpatient basis. Mental Status Exam MSE Comments: This is an obese white male in hospital scrubs with adequate grooming and eye contact. There is no evidence of any abnormal involuntary motor movements tics or tremors appreciated. He was cooperative with exam and in mild distress. Speech was normal Mood reported as depressed. His affect was mood congruent and restricted. Thought process was linear and organized. Thought content: Patient denied suicidal or homicidal ideation, there were no delusions reported or noted, He denied any auditory or visual hallucinations. Attention and concentration appeared intact and memory appeared mostly reliable but none were formally tested. He is alert and oriented x3. Insight, judgment and impulse control are limited. Vitals/I&O/Wt Last Vital Signs Temp 97.4 F L 07/27/23 14:00 Pulse 73 07/27/23 14:00 Resp 16 07/27/23 14:00 BP 113/78 07/27/23 14:00 Pulse Ox 98 07/27/23 14:00 O2 Del Method Room Air 07/27/23 14:00 Data NPU 07/25/23 02:00 07/23/23 15:04 A&P Assessment and plan (1) Major depressive disorder: (2) Panic disorder: (3) Alcohol dependence: (4) Generalized anxiety disorder with panic attacks: Plan Patient is a 43-year-old white male admitted with vague suicidal ideation, worsening anxiety and daily panic attacks, along with alcohol dependence currently reporting abrupt discontinuation of benzodiazepines abruptly one month ago. 1. Continue Klonopin at 2mg tid. Continue lexapro 20mg daily to target depression and anxiety. Gabapentin 900mg bid. Add naltrexone 50mg daily with p kevin for vivitrol for alcohol dependence. 2.? Encourage individual, group and milieu therapy 3.? Continue q-15 minute check for safety 4.? Recommend sober living treatment at the highest level of care to which the patient is willing to commit. Involuntary Hold Information 96 Hour Hold: 96 Hour Involuntary Admission: No Attestations NPU Medical Necessity Statement*: Inpatient hospitalization is medically necessary and clinically appropriate intervention at this time. We will monitor medications and make changes as indicated. His likely length of stay is 2-3 days. Coding Level of Care Code Acute Code for [facility] Diagnoses Major depressive disorder F32.9 Panic disorder F41.0 Alcohol dependence F10.20 Generalized anxiety disorder with panic attacks F41.1; F41.0
[2023-07-27] MEDS: atorvastatin 40 mg Tablet PO (20:12)
[2023-07-27] MEDS: quetiapine 300 mg Tablet PO (20:12)
[2023-07-27] MEDS: acetaminophen 325 mg Tablet 650 MG PO (20:12)
[2023-07-27 21:20] VITALS: BP 100/62; PULSE 72; RESP 18; TEMP 36.6; O2SAT 96
--- NOTE | 2023-07-28 04:50 | PC.NURSE ---
Patient denied SI/HI/AVH amd depression. Patient endorsed anxiety rated 9/10. Given scheduled medication. Patient slept most of this shift. No acute distress observed.
[2023-07-28 06:00] VITALS: BP 105/70; PULSE 72; RESP 16; TEMP 36.4; O2SAT 95
[2023-07-28] MEDS: lisinopril 20 mg Tablet PO (08:33)
[2023-07-28] MEDS: naltrexone hcl 50 mg Tablet PO (08:33)
[2023-07-28] MEDS: escitalopram 10 mg Tablet 20 MG PO (08:33)
[2023-07-28] MEDS: propranolol 20 mg Tablet PO ×3 (08:33→19:48)
[2023-07-28] MEDS: hydroCHLOROthiazide 25 mg Tablet PO (08:33)
[2023-07-28] MEDS: CLONazepam 1 mg Tablet 2 MG PO ×3 (08:34→19:48)
[2023-07-28] MEDS: pantoprazole DR 40 mg Tablet PO (08:34)
[2023-07-28] MEDS: gabapentin 300 mg Capsule 900 MG PO ×2 (08:34→17:02)
[2023-07-28] MEDS: nicotine 21 mg Patch 1 PATCH TRANSDERMA (08:45)
[2023-07-28 14:00] VITALS: BP 120/84; PULSE 78; RESP 17; TEMP 36.7; O2SAT 97
--- NOTE | 2023-07-28 14:06 | W.PM.NPUPNS ---
Subjective NPU Subjective: 43-year-old white male with a history of panic attacks depression and generalized anxiety disorder admitted with suicidal ideation. Patient reported no side effects from his Vivitrol given today. He had reported no recent panic attacks. He had stated that he felt ready to leave here but he had faced obstacles as he was not welcome to had [facility] as a senior living. Treatment team continued to work on finding a placement for the patient as he has remained homeless. He had reported no cravings currently for alcohol. He had reported some pain related issues but reported that he was trying to manage his pain with anti-inflammatories. He had reported that his depression remained but was better controlled. He had continue to endorse chronic anxiety. ent basis. Mental Status Exam MSE Comments: This is an obese white male in hospital scrubs with adequate grooming and fair eye contact. There is no evidence of any abnormal involuntary motor movements tics or tremors appreciated. He was cooperative with exam and in no acute distress. Speech was normal in rate, rhythm and prosody. Mood reported as allright. His affect remained flat. Thought process was linear and organized. Thought content: Patient denied suicidal or homicidal ideation, there were no delusions reported or noted, He denied any auditory or visual hallucinations. Attention and concentration appeared intact and memory appeared mostly reliable but none were formally tested. He is alert and oriented x3. Insight, judgment and impulse control are limited. Vitals/I&O/Wt Last Vital Signs Temp 97.6 F 07/28/23 06:00 Pulse 72 07/28/23 06:00 Resp 16 07/28/23 06:00 BP 105/70 07/28/23 06:00 Pulse Ox 95 07/28/23 06:00 O2 Del Method Room Air 07/27/23 14:00 Data NPU 07/25/23 02:00 07/23/23 15:04 A&P Assessment and plan (1) Major depressive disorder: (2) Panic disorder: (3) Alcohol dependence: (4) Generalized anxiety disorder with panic attacks: Plan Patient is a 43-year-old white male admitted with vague suicidal ideation, worsening anxiety and daily panic attacks, along with alcohol dependence currently reporting abrupt discontinuation of benzodiazepines abruptly one month ago. 1. Continue Klonopin at 2mg tid. Continue lexapro 20mg daily to target depression and anxiety. Continue Seroquel 300mg at night. Gabapentin 900mg bid. Discontinue Naltrexone Oral as vivitrol IM 380mg given today. 2.? Encourage individual, group and milieu therapy 3.? Continue q-15 minute check for safety 4.? Recommend sober living treatment at the highest level of care to which the patient is willing to commit. 5. NEXT DUE DATE OF VIVITROL 08/25/23 Involuntary Hold Information 96 Hour Hold: 96 Hour Involuntary Admission: No Attestations NPU Medical Necessity Statement*: Inpatient hospitalization is medically necessary and clinically appropriate intervention at this time. We will monitor medications and make changes as indicated. His likely length of stay is 3-4 days. Coding Level of Care Code Acute Code for [facility] Fwd Diagnoses Major depressive disorder F32.9 Panic disorder F41.0 Alcohol dependence F10.20 Generalized anxiety disorder with panic attacks F41.1; F41.0
[2023-07-28] MEDS: aspirin 81 mg Chew Tablet PO (15:21)
[2023-07-28 19:32] VITALS: BP 106/68; PULSE 74; RESP 18; TEMP 36.5; O2SAT 96
[2023-07-28] MEDS: atorvastatin 40 mg Tablet PO (19:49)
[2023-07-28] MEDS: quetiapine 300 mg Tablet PO (19:49)
[2023-07-29] MEDS: aspirin 81 mg EC Tablet PO (05:57)
[2023-07-29 06:00] VITALS: BP 116/79; PULSE 72; RESP 18; TEMP 36.5; O2SAT 94
[2023-07-29] MEDS: nicotine 21 mg Patch 1 PATCH TRANSDERMA (07:57)
[2023-07-29] MEDS: gabapentin 300 mg Capsule 900 MG PO ×2 (07:58→17:14)
[2023-07-29] MEDS: pantoprazole DR 40 mg Tablet PO (07:58)
[2023-07-29] MEDS: CLONazepam 1 mg Tablet 2 MG PO (07:58)
[2023-07-29] MEDS: propranolol 20 mg Tablet PO ×3 (07:58→20:12)
[2023-07-29] MEDS: hydroCHLOROthiazide 25 mg Tablet PO (07:59)
[2023-07-29] MEDS: escitalopram 10 mg Tablet 20 MG PO (07:59)
[2023-07-29] MEDS: lisinopril 20 mg Tablet PO (07:59)
[2023-07-29 14:00] VITALS: BP 117/72; PULSE 71; RESP 18; TEMP 36.4; O2SAT 98
--- NOTE | 2023-07-29 16:27 | W.PM.NPUPNS ---
Subjective NPU Subjective: Patient presented today reporting that he was fine. He went through a myriad of stages initially saying he was fine with a decrease in his Klonopin as he has been rejected from rehab secondary to his Klonopin dosing. Then he was reporting a desire to leave AMA. Then he was able to end the conversation about leaving AGAINST MEDICAL ADVICE and except plan for discharge tomorrow with a reduction in his Klonopin which she does not want in a conversation with his outpatient doctor about the plan to increase his Klonopin 0.5 mg every 2 weeks to get to a more reasonable dose or ultimately discontinue which would be the best plan. Mental Status Exam MSE Comments: This is an obese white male in hospital scrubs with adequate grooming and fair eye contact. There is no evidence of any abnormal involuntary motor movements tics or tremors appreciated. He was cooperative with exam and in mild acute distress. Speech was normal in rate, rhythm and prosody. Mood reported as okay. His affect remained flat. Thought process was linear and organized. Thought content: Patient denied suicidal or homicidal ideation, there were no delusions reported or noted, He denied any auditory or visual hallucinations. Attention and concentration appeared intact and memory appeared mostly reliable but none were formally tested. He is alert and oriented x3. Insight, judgment and impulse control are limited. Vitals/I&O/Wt Last Vital Signs Temp 98.0 F 07/29/23 19:59 Pulse 74 07/29/23 19:59 Resp 18 07/29/23 19:59 BP 103/68 07/29/23 19:59 Pulse Ox 95 07/29/23 19:59 O2 Del Method Room Air 07/29/23 19:59 Data NPU 07/25/23 02:00 07/23/23 15:04 A&P Assessment and plan (1) Major depressive disorder: (2) Panic disorder: (3) Alcohol dependence: (4) Generalized anxiety disorder with panic attacks: Plan Patient is a 43-year-old white male admitted with vague suicidal ideation, worsening anxiety and daily panic attacks, along with alcohol dependence currently reporting abrupt discontinuation of benzodiazepines abruptly one month ago. 1. Decrease Klonopin to 5 mg daily for 2 weeks then go to 4.5 mg for 2 weeks with continued decreases of 0.5 mg every 2 weeks. Continue lexapro 20mg daily to target depression and anxiety. Continue Seroquel 300mg at night. Gabapentin 900mg bid. Discontinue Naltrexone Oral as vivitrol IM 380mg given today. 2.? Encourage individual, group and milieu therapy 3.? Continue q-15 minute check for safety 4.? Recommend sober living treatment at the highest level of care to which the patient is willing to commit. 5. NEXT DUE DATE OF VIVITROL 08/25/23 Involuntary Hold Information 96 Hour Hold: 96 Hour Involuntary Admission: No Attestations NPU Medical Necessity Statement*: Inpatient hospitalization is medically necessary and clinically appropriate intervention at this time. We will monitor medications and make changes as indicated. His likely length of stay is 1-3 days. Coding Level of Care Code Acute Code for [facility] Fwd Diagnoses Major depressive disorder F32.9 Panic disorder F41.0 Alcohol dependence F10.20 Generalized anxiety disorder with panic attacks F41.1; F41.0
[2023-07-29] MEDS: CLONazepam 1 mg Tablet PO ×2 (18:23→20:12)
[2023-07-29 19:59] VITALS: BP 103/68; PULSE 74; RESP 18; TEMP 36.7; O2SAT 95
[2023-07-29] MEDS: quetiapine 300 mg Tablet PO (20:12)
[2023-07-29] MEDS: atorvastatin 40 mg Tablet PO (20:12)
[2023-07-30 06:00] VITALS: BP 106/69; PULSE 86; RESP 19; TEMP 36.6; O2SAT 90
[2023-07-30] MEDS: aspirin 81 mg EC Tablet PO (06:36)
[2023-07-30] MEDS: lisinopril 20 mg Tablet PO (08:01)
[2023-07-30] MEDS: hydroCHLOROthiazide 25 mg Tablet PO (08:01)
[2023-07-30] MEDS: propranolol 20 mg Tablet PO (08:01)
[2023-07-30] MEDS: CLONazepam 1 mg Tablet PO ×2 (08:01→12:43)
[2023-07-30] MEDS: pantoprazole DR 40 mg Tablet PO (08:01)
[2023-07-30] MEDS: escitalopram 10 mg Tablet 20 MG PO (08:01)
[2023-07-30] MEDS: gabapentin 300 mg Capsule 900 MG PO (08:02)
[2023-07-30 14:00] VITALS: BP 138/74; PULSE 78; RESP 16; TEMP 36.9; O2SAT 98
--- NOTE | 2023-07-30 14:15 | W.PM.NPUDCS ---
Diagnoses at Discharge Discharge Diagnosis (1) Major depressive disorder: Status: Acute (2) Panic disorder: Status: Inactive (3) Alcohol dependence: Status: Acute (4) Generalized anxiety disorder with panic attacks: Status: Acute Reason for Visit Reason for Visit: psych eval Brief History: History of Present Illness uRdy Crawford is a 43 year old male recently discharged last month from the neuropsychiatric unit who presented to the emergency room complaining of suicidal ideation and continued depression. The patient had stated that he had been discharged from [place] yesterday and reports that over the past 4 days his Klonopin had been decreased from 6 mg a day to 2 mg a day within a short period of time. He reports some irritability and agitation since this reduction. He had denied having used alcohol for the past few weeks. He reports that he has been homeless. He had reported that he had been struggling with panic attacks as well. Patient had stated that he has been feeling more hopeless and worthless. He reports sleep continuity disruption. He had reported that he was hopeful of finding a fpc in the nearby area. He reports no acute changes otherwise and stated above. Current medications: gabapentin, aspirin, lisinopril, propranolol, quetiapine, trazodone, klonopin Previous discharge summary from NPU on 05/23/23 History of Present Illness Rudy Crawford is a 43 year old male who presented to the emergency department with the following report: Chief Complaint: Psychiatric Symptoms Stated Complaint: mag Time Seen by Provider: 05/22/23 16:58 History of Present Illness: Presents to the ER with complaints of suicidal ideations. Patient said the world just coming down around him. Last week patient lost his job, got really really drunk and decided to check himself into rehab down at [place] spent 3 days they are in when he got out felt that it he need just needed more time to help. Patient is having bad thoughts of suicide. Patient was on a bridge today and thought of jumping. Since patient lost his job and is planning on moving in with his girlfriend and having major life stressors. He was admitted to the neuropsychiatric unit for the definitive treatment of those issues. Patient presented today reporting that things are very stressed he reports that his anxiety is out of control and that he lost his job. He reports that he is temporarily homeless and that he is moving into a new place next week with some woman that he has a relationship with. He endorsed having suicidal thoughts but reports those have diminished. He endorses a history of having anxiety helps with Klonopin. He reports that his anxiety gets so [id number] that he has chest pains and feels like he might have a heart attack. He endorses maybe having a cardiac history. We reviewed his previous hospitalization from August of last year and an excerpt of that stay is included below for context and his report of limited/no substantive changes since that today. Outside of his current living arrangement issues. We discussed possible medications for his anxiety and he was very focused on not changing the Klonopin which we discussed that 2 mg p.o. 3 times daily is a very high dose. He reports it has been very effective but cannot explain why he was always anxious if it is very effective. He is not interested in any medications like SSRIs etc. reporting he knows what works. He had initially talked about leaving AMA but then reported he would stay but he seemed quite ambivalent about this stay overall. Per his 09/25/2022 [facility] inpatient psychiatric discharge summary: Discharge Diagnosis (1) Panic disorder: Status: Acute (2) Alcohol dependence: Status: Acute (3) Benzodiazepine abuse: Status: Acute Reason for Visit Reason for Visit: Suicidal ideation Brief History: History of Present Illness Rudy Crawford is a 42 year old male who had presented to his primary care nurse on 09/22/2020 2 in the morning requesting treatment for alcohol withdrawal. He reports that he wishes to stop his consumption of alcohol and stated that he was having withdrawal symptoms as he had reported having last consumed alcohol on the night of 09/21/2022. He had reported having consumed a gallon of fireball whiskey and reports having consumed a case of beer on a daily basis. He reports his consumption of alcohol has been increasing since he was taken abruptly off of his prescribed Klonopin of 2 mg/day. He had reported a previous history of panic attacks and considerable anxiety that had been worsening his cardiac problems. He states that he had not been prescribed Klonopin for over a month. He endorses a past history of withdrawal seizures although it is uncertain as to whether that was associated with withdrawal from benzodiazepines or alcohol. He had acknowledged no depression but states that his panic attacks have been more frequent over the past few months. He reports an extended history of chest pain shortness of breath difficulty swallowing and feeling like he is going to . He reports that these panic attacks occur without triggers frequently. Current medications: gabapentin 300mg bid, hydrochlorothiazide/lisinopril: 25mg/20mg, hydroxyzine 25mg bid Previous admission on 06/22/2022 at [facility]: Rudy Crawford is a 42 year old single white male with a history of panic attacks coronary artery disease and hypertension who reports to the emergency department with suicidal ideation with a plan to jump off of a bridge. He had reported that he had been feeling more depressed and reported uncontrolled anxiety over the past 3 months since he had ran out of his Klonopin 1 mg twice a day. He had reported that he has had chronic panic attacks for many years with unknown triggered panic attacks lasting approximately 40 minutes with associated chest pain shortness of breath numbing and tingling in his fingers and difficulty with breathing. He reports that his panic attacks have led him to the emergency department multiple times with complaints of chest pain. He reports that he had a heart attack a few years ago and he has had these panic attacks since that time. The patient reports being burdened by anxiety over the past few months. He reports that he had been unable to receive his Klonopin in [place], [place] where he had moved. He reports that he had recently moved back to the area and had not been able to see his primary care physician yet to get back on his Klonopin. The patient had reported diminished energy low motivation and depressed mood for the past month. He had endorsed having suicidal thoughts. He denied any psychotic symptoms. He denied any history of manic symptoms. He had reported a long history of chronic worry since his heart attack occurred. Past psychiatric history: Patient has a history of 1 inpatient hospitalization 2 years ago for suicidal ideation at [facility] in [facility]. He had reported no history of psychotherapy but reports a history of having been treated for panic attacks and depression with medication trials on Lexapro and xanax. He also reported a history of having been treated for opioid abuse with a history of having been in methadone clinic for a few years having last used methadone 6 years ago. Medical history: Chronic lower back pain peripheral vascular disease with claudication history of carotid stenosis history of hypertension, HTN Surgical history he has a history of placement of stent in the coronary artery he has a history of repair of a torn rotator cuff Allergies: Toradol Medications: Klonopin 1 mg twice a day aspirin 81 mg in the morning clonidine 0.1 mg twice a day nitroglycerin as needed Drug and alcohol history: He reports having begun use of opiates at the age of [age]. He had reported last use of opiates for treating pain few days ago. He had reported a past history of methadone treatment but reports no substance abuse inpatient or rehabilitation in the past. He had reported a past history of alcohol abuse but reports that he has not been drinking recently. He denies any history of benzodiazepine misuse. Family psychiatric history: alcohol abuse-father Social History: Patient was born and raised in [facility]. He is currently living in [facility]. He has never been and has no children. He was raised by his biological parents and is the youngest of 5. 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 He denies any significant history of trauma. He denies any history of legal issues. Update: Patient had endorsed recently having been hospitalized at [facility] in late July in an attempt to help with detoxification off of benzodiazepines and alcohol. He reports that he had left and intensive inpatient rehabilitation facility in [place] in early August 2022. His living situation is also changed he is currently staying with a friend near [facility]. Hospital Course Hospital Course He slowly acclimated to the individual, group and milieu therapies provided. A growing theme in his visits seems to be his Klonopin. His last hospitalization he came in left on the same day in the drive for leaving appeared to be Klonopin. He began to leave [place] at 1 point and the issue of note was Klonopin. 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 We agreed to drop him to 1 mg p.o. 4 times daily from the 2 mg p.o. 3 times daily. He was given a 2-week prescription that was going to be active in 2 weeks as he left with 56 1 mg tablets that would serve him for 4 times daily for the next 2 weeks. Therefore he had a month of medication in his outpatient provider agreed that he would see him and consider dropping it down to 3.5 mg daily otherwise he refused the Vivitrol injection reporting that he still wants to drink some and we identified that being an issue like Klonopin is a bad idea. He was also discharged on Celexa 20 mg daily Neurontin 600 mg p.o. twice daily. He was working with the social work team for possible treatment options but was very resistant to the options that were identified. He had modest improvement and he was able to contract for safety outside of the hospital prior to discharge. During the hospitalization, patient had routine laboratory studies which were within normal limits except for few outliers. Additionally there was a general medical evaluation which was also within normal limits and revealed no new acute processes. At the time of discharge, he denied psychosis or lethality. Mood and anxiety were well managed. Patient endorsed a plan to avoid all drugs of abuse and follow-up with the aftercare recommendations of the treatment team. Patient was evaluated and deemed to be absent credible lethality, and achieved a maximum benefit from an inpatient hospitalization, so was discharged. Involuntary Hold Information 96 Hour Hold: 96 Hour Involuntary Admission: No Mental Status Exam MSE Comments: This is an obese white male in hospital scrubs with adequate grooming and fair eye contact. There is no evidence of any abnormal involuntary motor movements tics or tremors appreciated. He was cooperative with exam and in mild acute distress. Speech was normal in rate, rhythm and prosody. Mood reported as okay. His affect remained flat. Thought process was linear and organized. Thought content: Patient denied suicidal or homicidal ideation, there were no delusions reported or noted, He denied any auditory or visual hallucinations. Attention and concentration appeared intact and memory appeared mostly reliable but none were formally tested. He is alert and oriented x3. Insight, judgment and impulse control are limited. Discharge Data Studies Completed and Pending: Completed Studies During Hospitalization Category Date Time Status CTA thoracic [CT angio chest [id number]] Stat Cat Scan 07/24/23 20:46 Completed XR chest 1V noah ble [id number] Routine Exams 07/24/23 19:28 Completed Radiology Impressions Chest X-Ray 07/24/23 19:28 IMPRESSION: Bibasilar atelectasis versus minimal infiltrate left greater than right. Chest CTA 07/24/23 20:46 IMPRESSION: 1. Negative for pulmonary embolus, aorta intact. 2. Bilateral dependent atelectasis. 3. Coronary artery atherosclerotic calcifications. 4. Hepatic steatosis 5. Right middle lobe 6.9 mm pleural based pulmonary nodule.For patients at low risk (minimal or absent history of smoking and of other known risk factors), recommend CT Chest at 6-12 months, then consider CT Chest at 18-24 months. For patients at high risk (history of smoking or of other known risk factors), recommend CT Chest at 6-12 months, then CT Chest at 18-24 months. (Reference: Jared) REFERENCES: Jared Handy, et al. Guidelines for Management of Incidental Pulmonary Nodules Detected on CT Images: From the Fleischner Society 2017. Radiology. 2017;284(1):228-243. Laboratory Results WBC 7.83 10^3/uL (3.2 9-11.43) 07/25/23 02:00 RBC 5.02 10^6/uL (3.8 5-5.65) 07/25/23 02:00 Hgb 15.10 g/dL (11.27 -16.99) 07/25/23 02:00 Hct 44.8 % (37-53) 07/25/23 02:00 MCV 89.2 fl (82-101) 07/25/23 02:00 MCH 30.1 pg (27-33) 07/25/23 02:00 MCHC 33.7 g/dL (30-55) 07/25/23 02:00 RDW 11.9 % (12.1-15.1 ) L 07/25/23 02:00 Plt Count 231 10^3/cmm (157 -399) 07/25/23 02:00 MPV 8.0 fL (7.4-10.4) 07/25/23 02:00 Neut % (Auto) 40.4 % 07/25/23 02:00 Lymph % (Auto) 48.1 % 07/25/23 02:00 [place] % (Auto) 8.0 % 07/25/23 02:00 Eos % (Auto) 2.0 % 07/25/23 02:00 Baso % (Auto) 0.6 % 07/25/23 02:00 Neut # (Auto) 3.15 10^3/uL (1.8 -7.7) 07/25/23 02:00 Lymph # (Auto) 3.8 10^3/uL (0.8- 4.8) 07/25/23 02:00 [place] # (Auto) 0.6 10^3/uL (0.2- 0.9) 07/25/23 02:00 Eos # (Auto) 0.2 10^3/uL (0.0- 0.8) 07/25/23 02:00 Baso # (Auto) 0.1 10^3/uL (0.0- 0.1) 07/25/23 02:00 Nucleated RBC % (a uto) 0 % 07/25/23 02:00 Nucleated RBCs # 0.0 /100WBC 07/25/23 02:00 D-Dimer 0.30 ug/mLFEU (0- 0.59) 07/24/23 20:03 Sodium 135 mmol/L (136-1 45) L 07/23/23 15:04 Potassium 3.7 mmol/L (3.5-5 .1) 07/23/23 15:04 Chloride 98 mmol/L (98-107 ) 07/23/23 15:04 Carbon Dioxide 26 mmol/L (22-29) 07/23/23 15:04 Anion Gap 14.7 (5-19) 07/23/23 15:04 BUN 8 mg/dL (6-20) 07/23/23 15:04 Creatinine 0.8 mg/dL (0.7-1. 2) 07/23/23 15:04 GFR Calculation 105.0 mL/min (90- 130) 07/23/23 15:04 Glucose 150 mg/dL (65-115 ) H 07/23/23 15:04 Calculated Osmolal ity 281 mOsm/kg (285- 295) L 07/23/23 15:04 Calcium 9.6 mg/dL (8.5-10 .5) 07/23/23 15:04 Total Bilirubin 0.2 mg/dL (0.15-1 .2) 07/23/23 15:04 AST 36 U/L (0-40) 07/23/23 15:04 ALT 67 U/L (0-41) H 07/23/23 15:04 Alkaline Phosphata se 75 U/L (40-130) 07/23/23 15:04 Troponin T Baselin e < 6 ng/L (0-15) 07/24/23 20:03 Troponin T 120 Min alejandrina 6.98 ng/L (0-15) 07/24/23 21:40 Delta Troponin T 0.50546 ABS# (0-1 0) 07/24/23 21:40 Troponin T Hi Sens 6Hr 6.27 ng/L (0-15) 07/25/23 02:00 Troponin T Hi Sens 6Hr Delta 0.83086 ng/L (0-1 2) 07/25/23 02:00 Total Protein 7.1 g/dL (6.6-8.7 ) 07/23/23 15:04 Albumin 4.1 g/dL (3.5-5.2 ) 07/23/23 15:04 Globulin 3.0 g/dL (1.3-4.6 ) 07/23/23 15:04 Nasal Influ A H1 2 009 PCR Not detected (NO T DETECT) 07/27/23 11:40 Salicylates < 0.3 mg/dL (3-10 ) L 07/23/23 15:04 Acetaminophen < 5.0 ug/mL (10-3 0) L 07/23/23 15:04 Ethyl Alcohol < 10 mg/dL (0-10) 07/23/23 15:04 Adenovirus (PCR) Not detected (NO T DETECT) 07/27/23 11:40 C. pneumoniae DNA (PCR) Not detected (NO T DETECT) 07/27/23 11:40 Coronavirus 229E ( PCR) Not detected (NO T DETECT) 07/27/23 11:40 Human Metapneumovi r PCR Not detected (NO T DETECT) 07/27/23 11:40 Influenza A (H1) P CR Not detected (NO T DETECT) 07/27/23 11:40 Influenza A (H3) P CR Not detected (NO T DETECT) 07/27/23 11:40 Influenza Type A ( PCR) Not detected (NO T DETECT) 07/27/23 11:40 Influenza Type B ( PCR) Not detected (NO T DETECT) 07/27/23 11:40 M. pneumoniae (PCR ) Not detected (NO T DETECT) 07/27/23 11:40 Parainfluenza 1 (P CR) Not detected (NO T DETECT) 07/27/23 11:40 Parainfluenza 2 (P CR) Not detected (NO T DETECT) 07/27/23 11:40 Parainfluenza 3 (P CR) Not detected (NO T DETECT) 07/27/23 11:40 Parainfluenza 4 (P CR) Not detected (NO T DETECT) 07/27/23 11:40 RSV Type A (PCR) Not detected (NO T DETECT) 07/27/23 11:40 RSV Type B (PCR) Not detected (NO T DETECT) 07/27/23 11:40 Entero/Rhino (PCR) Not detected (NO T DETECT) 07/27/23 11:40 SARS-CoV-2 (PCR) Not detected (NO T DETECT) 07/27/23 11:40 Vitals: Last Vital Signs Temp 97.9 F 07/30/23 06:00 Pulse 86 07/30/23 06:00 Resp 19 H 07/30/23 06:00 BP 106/69 07/30/23 06:00 Pulse Ox 90 07/30/23 06:00 O2 Del Method Room Air 07/30/23 06:00 Discharge Plan Discharge Patient Disposition: Home Condition: Stable Prescriptions: New quetiapine 300 mg Tablet 300 mg PO BEDTIME 30 Days Qty: 30 1RF gabapentin 300 mg Capsule 600 mg PO BID 30 Days Qty: 120 1RF propranolol 20 mg Tablet 20 mg PO TID 30 Days Qty: 90 1RF clonazepam 1 mg Tablet 2 mg PO TID Qty: 42 1RF escitalopram oxalate 10 mg Tablet 20 mg PO DAILY 30 Days Qty: 30 1RF hydrochlorothiazide 25 mg Tablet 25 mg PO DAILY 30 Days Qty: 30 1RF pantoprazole 40 mg Tablet,Delayed Release (Dr/Ec) 40 mg PO DAILY 30 Days Qty: 30 1RF naproxen 500 mg Tablet 500 mg PO Q12H 14 Days Qty: 28 0RF lisinopril 20 mg Tablet 20 mg PO DAILY 30 Days Qty: 30 1RF atorvastatin 40 mg Tablet 40 mg PO BEDTIME 30 Days Qty: 30 1RF Vivitrol 380 mg suspension,extended rel recon 380 mg IM ONCE Qty: 1 1RF Rx Instructions: Take IM once per month (next due date is 08/25/23 Klonopin 1 mg tablet 1 mg PO QID 14 Days Qty: 56 0RF Rx Instructions: Start in 14 days 08/13/23 Continued clonazepam 2 mg tablet 2 mg PO TID 30 Days Qty: 90 3RF Rx Instructions: Fill on or after 30-day interval aspirin 81 mg tablet,delayed release (DR/EC) 81 mg PO QAM clonidine HCl 0.1 mg tablet 0.1 mg PO TID PRN (Reason: Blood Pressure) Nitrostat 0.4 mg Tablet, Sublingual 0.4 mg SUBLINGUAL Q5M PRN (Reason: Chest Pain) Qty: 7 1RF Rx Instructions: do not exceed 3 doses per episode Discontinued lisinopril-hydrochlorothiazide 20-25 mg tablet 1 tab PO QAM Qty: 30 0RF quetiapine 300 mg tablet 300 mg PO BEDTIME trazodone 50 mg tablet 50 mg PO BEDTIME PRN (Reason: Sleep) nicotine 21 mg/24 hr patch 24 hour 1 patch topical DAILY gabapentin 300 mg capsule 900 mg PO TID propranolol 20 mg tablet 20 mg PO TID Discharge Orders: Discharge Order (Routine); Ordered 07/30/23 Ordered By: Gigi Wagner Referrals: [facility] [Outside] - 08/02/23 8:30 am (with Noel Hicks for [facility] services) Nilesh Hutchinson MD [Primary Care Provider] - Discharge Diet: Cardiac Discharge Activity: Resume usual activity Patient Instructions: Alcohol Abuse, Alcoholism, Opioid Safety Discharge Attestations NPU Time Spent in Discharge Care*: greater than 30 min Specific Discharge Activities: Specific discharge activities: educating patient, discussing with pcp/other providers, discussing with outsole caser/social workers/dc planners, documenting/other paperwork and evaluating patient/reviewing data Coding Level of Care Code Acute Chg FW DC note Diagnoses Major depressive disorder F32.9 Panic disorder F41.0 Alcohol dependence F10.20 Generalized anxiety disorder with panic attacks F41.1; F41.0
[2023-07-30 14:18] VITALS: BP 106/69; PULSE 86; RESP 19; TEMP 36.6; O2SAT 90
== END 2023-07-30 15:00 | disposition home or self-care (01) | DRG 881 ==
LOC: ER 14:58 → NP 15:56
PROVIDERS: Internal Medicine; Admitting Provider Psychiatry & Neurology Psychiatry; Emergency Provider Family Medicine; PCP Family Medicine Adult Medicine; Visit Provider Psychiatry & Neurology Psychiatry
DX: F32.9 Major depressive disorder, single episode, unspecified (principal); R45.851 Suicidal ideations; Z59.01 Sheltered homelessness; F10.20 Alcohol dependence, uncomplicated; F13.10 Sedative, hypnotic or anxiolytic abuse, uncomplicated; I10 Essential (primary) hypertension; R73.03 Prediabetes; F41.1 Generalized anxiety disorder; F41.0 Panic disorder [episodic paroxysmal anxiety]; F17.210 Nicotine dependence, cigarettes, uncomplicated; Z56.0 Unemployment, unspecified; M94.0 Chondrocostal junction syndrome [Tietze]; Z81.1 Family history of alcohol abuse and dependence
CPT/HCPCS: 36415; 71045; 71275; 80053; 80307; 84484; 85025; 85378; 87486; 87581; 87633; 93005; 97150; 97165; 99285; Q9967

== ENCOUNTER 2023-08-06 13:42 | Inpatient (IN) | payer MEDICAID, SELFPAY ==
[2023-08-06] VITALS (11 sets, daily range): BP systolic 116–148; BP diastolic 86–92; PULSE 72–104; RESP 16–20; TEMP 36.6; O2SAT 94–97; BMI 39.1
[2023-08-06 14:14] LABS: Basophils # 0.1 10^3/uL (0.0-0.1); Basophils % 0.5 %; Eosinophils # 0.1 10^3/uL (0.0-0.8); Lymphocytes # 2.6 10^3/uL (0.8-4.8); Lymphocytes % 27.2 %; Mean Corpuscular HGB Conc 34.8 g/dL (30-55); Mean Corpuscular Hemoglobin 30.8 pg (27-33); Mean Corpuscular Volume 88.6 fl (82-101); Mean Platelet Volume 8.3 fL (7.4-10.4); Monocytes # 0.6 10^3/uL (0.2-0.9); Monocytes % 6.7 %; Neutrophils # 6.13 10^3/uL (1.8-7.7); Neutrophils % 64.2 %; Nucleated Red Blood Cells % 0 %; Platelet Count 281 10^3/cmm (157-399); Red Blood Count 5.19 10^6/uL (3.85-5.65); Red Cell Distribution Width 12.2 % (12.1-15.1); White Blood Count 9.56 10^3/uL (3.29-11.43)
[2023-08-06 14:31] LABS: Alanine Aminotransferase 43 U/L (0-41); Albumin Level 4.4 g/dL (3.5-5.2); Alkaline Phosphatase 81 U/L (40-130); Aspartate Amino Transferase 23 U/L (0-40); Blood Urea Nitrogen 11 mg/dL (6-20); Calcium 9.6 mg/dL (8.5-10.5); Carbon Dioxide 24 mmol/L (22-29); Chloride 99 mmol/L (98-107); Globulin 2.6 g/dL (1.3-4.6); Glomerular Filtration Rate 65.8 mL/min (90-130); Glucose 243 mg/dL (65-115); Osmolality Calculated 291 mOsm/kg (285-295); Sodium 137 mmol/L (136-145); Total Bilirubin 0.4 mg/dL (0.15-1.2)
[2023-08-06 14:32] LABS: Troponin(5th) Baseline < 6 ng/L (0-15)
[2023-08-06 14:34] LABS: Anion Gap 17.7 (5-19); Potassium 3.7 mmol/L (3.5-5.1)
--- NOTE | 2023-08-06 14:43 | XRR_ITS ---
PROCEDURE INFORMATION: Exam: XR Chest Exam date and time: 08/06/2023 2:58 PM Age: 43 years old Clinical indication: Cough and dyspnea; Additional info: Dyspnea/cough TECHNIQUE: Imaging protocol: Radiologic exam of the chest. Views: 1 view. COMPARISON: CT angio chest [id number] 07/24/2023 9:15 PM FINDINGS: Lungs: Unremarkable. No consolidation. Pleural spaces: Unremarkable. No pleural effusion. No pneumothorax. Heart/Mediastinum: Unremarkable. No cardiomegaly. Bones/joints: Unremarkable. XR/XR chest 1V portable [id number] IMPRESSION: No acute findings.
--- NOTE | 2023-08-06 14:49 | W.ED.CHESTPA ---
HPI - Chest Pain General: Chief Complaint: Chest Pain Stated Complaint: CP Time Seen by Provider: 08/06/23 14:43 Source: patient Mode of arrival: ambulatory History of Present Illness: 43-year-old male presents emergency room with complaint of substernal chest pain rating to his left shoulder left arm. Patient has a known history of coronary artery disease and previously has had stents about 5 years ago 3 years ago he had another angiogram that he reports required no interventions. Symptoms began last night while at rest. He has taken some nitro with moderate relief of symptoms. MD complaint: chest pain Onset (ago): day(s) Timing of current episode: episodic Prior episodes: Yes Onset: during rest Pain location: left chest Pain radiation: left arm and left shoulder Severity: moderate Quality: tightness and aching Relieving factors: nitroglycerin Exacerbating factors: nothing Associated symptoms: Deny abdominal pain, diaphoresis, dyspnea, fever(s), leg edema, nausea, palpitations, sense of impending doom, syncope or vomiting Treatment prior to arrival: nitroglycerin Review of Systems Const: Denies: fever(s), chills or diaphoresis Card: Denies: chest pain, palpitations or syncope Resp: Denies: dyspnea GI: Denies: abdominal pain, nausea or vomiting : Denies: dysuria, urinary frequency or urinary urgency Musc: Denies: neck pain or back pain Skin/Breast: Denies: rash PFSH ED PFSH: Medical History (Updated 08/12/23 @ 07:31 by Anil Senior DO) Benzodiazepine abuse 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 Chronic low back pain Chronic pain in left shoulder Had pain present when seen 12/2021 on his first visit and thought he might have a rotator cuff tear then Cigarette smoker Claudication in peripheral vascular disease Since 2018 with walking 100 yards or less Dental caries associated with enamel hypomineralization Depression Erectile dysfunction Generalized anxiety disorder with panic attacks Hx of carotid stenosis Hypertension Prediabetes Psychiatric care Torn rotator cuff Social History Smoking and tobacco/nicotine status: current every day tobacco/nicotine user cigarettes Packs smoked per day: 2 Alcohol intake: current Alcohol intake frequency: few times a week Substance/Drug Use: never Marital status: Single Number of children: 0 Current occupational status: employed Physical Exam Const: COMMON NORMALS: no acute distress GENERAL APPEARANCE: cooperative and comfortable ORIENTATION/CONSCIOUSNESS: Yes awake, Yes oriented to person, Yes oriented to place and Yes oriented to time HENMT: COMMON NORMALS: normocephalic, atraumatic and hearing grossly normal bilaterally HEAD & SCALP: normocephalic and atraumatic Resp: COMMON NORMALS: normal respiratory effort, No retractions, No use of accessory muscles and clear to auscultation bilaterally AUSCULTATION: clear to auscultation bilaterally Cardio: COMMON NORMALS: regular rate, regular rhythm and No murmurs present (Cardio) RATE: regular rate RHYTHM: regular rhythm GI: COMMON NORMALS: Soft to palpation and No hepatosplenomegaly present AUSCULTATION: Yes normoactive bowel sounds PALPATION: Yes Soft to palpation, No Tenderness to palpation present (GI), No Guarding due to palpation present (GI) and Yes No hepatosplenomegaly present Extremity: COMMON NORMALS: normal to inspection, capillary refill normal, no clubbing, cyanosis or edema, no calf tenderness and no pedal edema Neuro: SENSORIUM/ORIENTATION: Yes oriented to person, Yes oriented to place and Yes oriented to time Skin: COMMON NORMALS: no rashes or lesions noted GENERAL SKIN EXAM: no rashes or lesions noted Course Vital Signs: Vital signs: Vital Signs Temperature 98.5 F 08/09/23 15:42 Pulse Rate 88 08/09/23 17:02 Respiratory Rate 18 08/09/23 17:02 Blood Pressure 139/99 08/09/23 17:02 Pulse Oximetry 94 08/09/23 17:02 Oxygen Delivery Me thod Room Air 08/09/23 15:42 MDM - Chest Pain Medical Decision Making Patient reports history of coronary disease previous stent placement. Presents emergency room with chest pain responsive to nitro it recurred he was started on a nitro drip and then required further titration cardiac enzymes and EKG did not show any changes at this time. We will attempt to get old records he has been started on Lovenox continue nitro drip he is also received aspirin. Consult cardiology discussed with hospitalist orders written Medical Records I reviewed the patient's medical records. Lab Data I reviewed the patient's lab results. 08/07/23 04:38 08/09/23 04:08 Radiology Impressions Chest X-Ray 08/06/23 14:43 IMPRESSION: No acute findings. Laboratory Results WBC 9.56 10^3/uL (3.29-11.43) 08/06/23 14:06 RBC 5.19 10^6/uL (3.85-5.65) 08/06/23 14:06 Hgb 16.00 g/dL (11.27-16.99) 08/06/23 14:06 Hct 46.0 % (37-53) 08/06/23 14:06 MCV 88.6 fl (82-101) 08/06/23 14:06 MCH 30.8 pg (27-33) 08/06/23 14:06 MCHC 34.8 g/dL (30-55) 08/06/23 14:06 RDW 12.2 % (12.1-15.1) 08/06/23 14:06 Plt Count 281 10^3/cmm (157-399) 08/06/23 14:06 MPV 8.3 fL (7.4-10.4) 08/06/23 14:06 Neut % (Auto) 64.2 % 08/06/23 14:06 Lymph % (Auto) 27.2 % 08/06/23 14:06 [place] % (Auto) 6.7 % 08/06/23 14:06 Eos % (Auto) 1.0 % 08/06/23 14:06 Baso % (Auto) 0.5 % 08/06/23 14:06 Neut # (Auto) 6.13 10^3/uL (1.8-7.7) 08/06/23 14:06 Lymph # (Auto) 2.6 10^3/uL (0.8-4.8) 08/06/23 14:06 [place] # (Auto) 0.6 10^3/uL (0.2-0.9) 08/06/23 14:06 Eos # (Auto) 0.1 10^3/uL (0.0-0.8) 08/06/23 14:06 Baso # (Auto) 0.1 10^3/uL (0.0-0.1) 08/06/23 14:06 Nucleated RBC % (auto) 0 % 08/06/23 14:06 Nucleated RBCs # 0.0 /100WBC 08/06/23 14:06 Sodium 137 mmol/L (136-145) 08/06/23 14:06 Potassium 3.7 mmol/L (3.5-5.1) 08/06/23 14:06 Chloride 99 mmol/L (98-107) 08/06/23 14:06 Carbon Dioxide 24 mmol/L (22-29) 08/06/23 14:06 Anion Gap 17.7 (5-19) 08/06/23 14:06 BUN 11 mg/dL (6-20) 08/06/23 14:06 Creatinine 1.2 mg/dL (0.7-1.2) 08/06/23 14:06 GFR Calculation 65.8 mL/min (90-130) L 08/06/23 14:06 Glucose 243 mg/dL (65-115) H 08/06/23 14:06 Estimat Average Glucose 154 08/06/23 14:06 Hemoglobin A1c 7.0 % (4.0-6.0) H 08/06/23 14:06 Calculated Osmolality 291 mOsm/kg (285-295) 08/06/23 14:06 Calcium 9.6 mg/dL (8.5-10.5) 08/06/23 14:06 Total Bilirubin 0.4 mg/dL (0.15-1.2) 08/06/23 14:06 AST 23 U/L (0-40) 08/06/23 14:06 ALT 43 U/L (0-41) H 08/06/23 14:06 Alkaline Phosphatase 81 U/L (40-130) 08/06/23 14:06 Troponin T Baseline < 6 ng/L (0-15) 08/06/23 14:06 Troponin T 120 Minute < 6.0 ng/L (0-15) 08/06/23 16:18 Delta Troponin T 0 ABS# (0-10) 08/06/23 16:18 Total Protein 7.0 g/dL (6.6-8.7) 08/06/23 14:06 Albumin 4.4 g/dL (3.5-5.2) 08/06/23 14:06 Globulin 2.6 g/dL (1.3-4.6) 08/06/23 14:06 Triglycerides 225 mg/dL (0-150) H 08/06/23 14:06 Cholesterol 157 mg/dL (0-200) 08/06/23 14:06 LDL Cholesterol, Calc 74 mg/dL (50-129) 08/06/23 14:06 HDL Cholesterol 38 mg/dL (60-100) L 08/06/23 14:06 LDL/HDL Ratio 1.95 RATIO (0.00-3.22) 08/06/23 14:06 Cholesterol/HDL Ratio 4.13 mg/dL (1.0-5.00) 08/06/23 14:06 TSH 0.47 uIU/mL (0.27-4.20) 08/06/23 14:06 Urine Color Yellow (Yellow) 08/06/23 14:41 Urine Appearance Clear (CLEAR) 08/06/23 14:41 Urine pH 7 (5-7) 08/06/23 14:41 Ur Specific [place] 1.010 (1.005-1.030) 08/06/23 14:41 Urine Protein Neg (Negative) 08/06/23 14:41 Urine Glucose (UA) 4+ (Normal) H 08/06/23 14:41 Urine Ketones 1+ (Negative) H 08/06/23 14:41 Urine Blood Neg (Negative) 08/06/23 14:41 Urine Nitrate Negative (Negative) 08/06/23 14:41 Urine Bilirubin Neg (Negative) 08/06/23 14:41 Urine Urobilinogen Norm mg/dL (Negative) 08/06/23 14:41 Ur Leukocyte Esterase Negative (Negative) 08/06/23 14:41 All radiology interpretation(s) finalized by discharge Discharge Plan Discharge Patient Disposition: Placed in Observation Admit Provider: Lilliam Parham Clinical Impression: Chest pain, Hypertension, Unstable angina, History of coronary artery disease Coding Level of Care Code ED Hole Puncher Strap for Adam Adair
[2023-08-06] MEDS: aspirin 81 mg Chew Tablet 324 MG PO (15:32)
[2023-08-06] MEDS: nitroglycerin drip 50 MG/250 ML PREMIX IV (15:56)
[2023-08-06 16:22] LABS: Add Urine Microscopic? NO; Charge for UA Resulting for Rev
[2023-08-06 16:27] LABS: Bilirubin Urine Neg (Negative); Blood Urine Neg (Negative); Glucose Urine UA 4+ (Normal); Ketones Urine 1+ (Negative); Leukocyte Esterase Urine Negative (Negative); Nitrate Urine Negative (Negative); Protein Urine Neg (Negative); Urine Appearance Clear (CLEAR); Urine Color Yellow (Yellow); Urobilinogen Urine Norm (Negative); pH Urine 7 (5-7)
[2023-08-06] MEDS: LORazepam 2 mg Tablet PO (16:32)
--- NOTE | 2023-08-06 16:33 | ECG_ITS ---
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 Measurements Intervals [place] Rate: 80 P: 39 MT: 181 QRS: 34 QRSD: 129 T: 47 QT: 373 QTc: 431 Interpretive Statements SINUS RHYTHM POSSIBLE RIGHT VENTRICULAR CONDUCTION DELAY [RSR (QR) IN V1/V2] NONSPECIFIC ST ELEVATION [0.05+ mV ST ELEVATION] Compared to ECG 07/25/2023 01:32:15 ST (T wave) deviation now present Myocardial infarct finding no longer present Electronically Signed On 08-06-2023 21:05:43 OCEAN CLAM BOAT CAPTAIN by Darya Clark M.D. [email or web address]/[id number]
[2023-08-06 17:07] LABS: Troponin 5 2HR < 6.0 ng/L (0-15); Troponin 5 2HR Delta 0 ABS# (0-10)
--- NOTE | 2023-08-06 17:56 | PM.HP ---
Providers/Chief Complaint Primary Care Provider: Nilesh Hutchinson MD Chief Complaint: CP History of Present Illness Rudy Crawford is a 43 year old male with past medical history of coronary artery disease status post PCI x2 stents, hypertension, hyperlipidemia presented to the hospital today with complaint of chest pain that started last night it is in the middle of chest and goes down his left arm and down his side. It feels like a pressure. He states both his parents have heart disease. His primary care doctor is Dr. Hutchinson. He had his cardiac procedure done in [facility]. Since he moved to [place] he has not had established with a remedy developer. His cardiac procedure was 3 years ago. He has not had a recent echo artery. Chest pain is not reproducible to palpation. He also says he is very anxious at this time and worried because he is having pain. In ER troponins were negative x2. 6-hour troponin is pending at this time. EKG did not show any acute ischemic changes. He is however having persistent chest pain and is on a nitro drip which has been titrated up. Nitro relieved the pain at first however it recurred so it had to be titrated up. ER doctor has contacted cardiology. Patient also given a shot of Lovenox. Medications/Allergies Home Medications Medication Instructions Recorded Confirmed Last Taken Type aspirin 81 mg tablet,delayed 81 mg PO QAM 10/29/22 08/06/23 08/06/23 History release clonidine HCl 0.1 mg tablet 0.1 mg PO TID PRN Blood Pressure 07/23/23 08/06/23 08/06/23 History atorvastatin 40 mg tablet 40 mg PO BEDTIME 30 days #30 tabs 07/28/23 08/06/23 08/05/23 Rx clonazepam 1 mg tablet 2 mg PO TID #42 tabs 07/28/23 08/06/23 08/06/23 Rx lisinopril 20 mg tablet 20 mg PO DAILY 30 days #30 tabs 07/28/23 08/06/23 08/06/23 Rx naltrexone microspheres 380 mg 380 mg IM ONCE #1 ea 07/28/23 08/06/23 Unknown Rx intramuscular suspension,extended release (Vivitrol) nitroglycerin 0.4 mg sublingual 0.4 mg sublingual Q5M PRN Chest 07/28/23 08/06/23 Unknown Rx tablet (Nitrostat) Pain #7 tabs pantoprazole 40 mg tablet,delayed 40 mg PO DAILY 30 days #30 tabs 07/28/23 08/06/23 08/06/23 Rx release propranolol 20 mg tablet 20 mg PO TID 30 days #90 tabs 07/28/23 08/06/23 08/06/23 Rx quetiapine 300 mg tablet 300 mg PO BEDTIME 30 days #30 tabs 07/28/23 08/06/23 08/05/23 Rx clonazepam 1 mg tablet (Klonopin) 1 mg PO QID 14 days #56 tabs 07/30/23 08/06/23 Unknown Rx escitalopram oxalate 20 mg tablet 20 mg PO QAM 08/06/23 08/06/23 08/06/23 History gabapentin 600 mg tablet 600 mg PO BID 08/06/23 08/06/23 08/06/23 History hydrochlorothiazide 25 mg tablet 25 mg PO QAM 08/06/23 08/06/23 08/06/23 History naproxen 500 mg tablet 500 mg PO Q12H PRN INFLAMATION AND 08/06/23 08/06/23 Unknown History PAIN trazodone 50 mg tablet 50 mg PO BID PRN Insomnia 08/06/23 08/06/23 Unknown History Allergies Allergy/AdvReac Type Severity Reaction Status Date / Time codeine Allergy ALGY-Hives Verified 07/23/23 14:32 ketorolac [From Toradol] Allergy ALGY-Hives Verified 07/23/23 14:32 PFSH Acute PFSH: Medical History (Updated 08/06/23 @ 18:45 by Lilliam Parham MD) Benzodiazepine abuse 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 Chronic low back pain Chronic pain in left shoulder Had pain present when seen 12/2021 on his first visit and thought he might have a rotator cuff tear then Cigarette smoker Claudication in peripheral vascular disease Since 2017 with walking 100 yards or less Dental caries associated with enamel hypomineralization Depression Erectile dysfunction Generalized anxiety disorder with panic attacks Hx of carotid stenosis Hypertension Prediabetes Psychiatric care Torn rotator cuff Social History Smoking and tobacco/nicotine status: current every day tobacco/nicotine user cigarettes Packs smoked per day: 2 Alcohol intake: current Alcohol intake frequency: few times a week Substance/Drug Use: never Marital status: Single Number of children: 0 Current occupational status: employed Vitals/I&O/Wt Last Vital Signs Temp 98 F 08/06/23 13:59 Pulse 80 08/06/23 16:48 Resp 17 08/06/23 13:59 BP 122/86 08/06/23 16:48 Pulse Ox 94 08/06/23 16:48 O2 Del Method Room Air 08/06/23 16:48 08/06/23 08/06/23 08/06/23 06:59 14:59 22:59 Intake Total 3.175 / 3.175 Balance 3.175 / 3.175 Weight last 48 hrs Weight 113.398 kg Physical Exam Narrative: General: Alert oriented x3, patient seen sitting up in bed complaining of chest pain, appears anxious HEENT: Normocephalic, atraumatic, EOMI, Cardio: Regular rate rhythm, normal S1-S2, Respiratory: Good bilateral air entry, no wheezes no rhonchi appreciated GI: Abdomen soft, nontender, nondistended, bowel sounds + Behavior: Appropriate and cooperative Extremities: no edema, no cyanosis Data 08/07/23 04:38 08/07/23 04:38 A&P Assessment and plan (1) CAD (coronary artery disease): (2) Major depressive disorder: (3) Hypertension: (4) Generalized anxiety disorder with panic attacks: (5) Unstable angina: Plan #Chest pain #Hx of Panic Attacks #Hyperlipidemia #Hypertension #Anxiety, depression ? Nitro drip ? Lovenox therapeutic twice daily ? Placed on ACS protocol. Aspirin, Plavix, atorvastatin, lisinopril. ? Serial EKGs ? Consult cardiology. ? Check echo -Continue clonazepam, escitalopram, pantoprazole ? Check hemoglobin A1c full code - Continue home meds NPO at midnight incase of procedure planned - Nicotine patch offered Full code Attestations Medical Necessity Statement*: > 2 midnight stay for management of unstable angina Diagnoses CAD (coronary artery disease) I25.10 Major depressive disorder F32.9 Hypertension I10 Generalized anxiety disorder with panic attacks F41.1; F41.0 Unstable angina I20.0
[2023-08-06] MEDS: lidocaine 2% viscous 15 ML, aluminum-mag hydrox-simethicon 30 ML, sucralfate oral liq 1 GM PO (18:02)
[2023-08-06] MEDS: enoxaparin 120 mg/0.8 mL Syringe 110 MG SUBCUT (18:03)
[2023-08-06 18:34] LABS: Chol HDL Ratio 4.13 mg/dL (1.0-5.00); Cholesterol 157 mg/dL (0-200); HDL Cholesterol 38 mg/dL (60-100); LDL Cholesterol Calculated 74 mg/dL (50-129); LDL HDL Ratio 1.95 RATIO (0.00-3.22); Thyroid Stimulating Hormone 0.47 uIU/mL (0.27-4.20); Triglycerides 225 mg/dL (0-150)
[2023-08-06 20:35] LABS: Estmated Average Glucose 154
[2023-08-06 21:33] LABS: Troponin 5 6HR 6.24 ng/L (0-15); Troponin 5 6HR Delta 0.24001 ng/L (0-12)
--- NOTE | 2023-08-06 21:34 | ECG_ITS ---
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 Measurements Intervals [place] Rate: 79 P: 30 OK: 188 QRS: 53 QRSD: 128 T: 62 QT: 417 QTc: 478 Interpretive Statements SINUS RHYTHM POSSIBLE RIGHT VENTRICULAR CONDUCTION DELAY [RSR (QR) IN V1/V2] Compared to ECG 08/06/2023 16:33:18 ST (T wave) deviation no longer present Electronically Signed On 08-09-2023 8:08:28 HORSERADISH MAKER by Shannan Mendoza M.D. [id number]
[2023-08-06] MEDS: pantoprazole 40 mg SDV IVP (21:42)
[2023-08-06] MEDS: atorvastatin 40 mg Tablet PO (21:45)
[2023-08-06] MEDS: clopidogrel 75 mg Tablet PO (21:45)
[2023-08-06] MEDS: sodium chloride 0.9% 1,000 ML 75 ML IV (21:48)
[2023-08-06] MEDS: morphine 4 mg/mL SDV 1 mL 2 MG IVP (22:30)
[2023-08-06] MEDS: CLONazepam 1 mg Tablet PO (22:32)
[2023-08-07] VITALS (61 sets, daily range): BP systolic 106–138; BP diastolic 73–96; PULSE 57–87; RESP 12–26; TEMP 36.6–36.9; O2SAT 92–98
--- NOTE | 2023-08-07 | USCV_ITS ---
Rudy Crawford Age: 43 Gender: M : 1980 Exam Date: 08/07/2023 06:28 Ordering Phys: Lilliam Parham MD Technologist: Dany Canales [place] [facility] [place]: unstable angina BP: 115 / 78 HR: 66 Rhythm: Sinus Technical Quality: Adequate MEASUREMENTS (Male / Female) Normal Values 2D ECHO LVOT Diameter 2.2 cm LV Ejection Fraction MOD 2C 46.8 % LV Ejection Fraction 2C AL 47.3 % LA Diameter 3.6 cm LA Width 3.3 cm LA Height 4.1 cm RA Width 3.0 cm RA Height 3.4 cm Aorta at Sinotubular Diameter 2.9 cm IVC Diameter 1.8 cm M-MODE Aortic Annulus Diameter 3.5 cm LA Ao Ratio MM 1.0 MV E Point Septal Separation 0.7 cm DOPPLER AV Peak Velocity 104.0 cm/s LVOT Peak Velocity 75.0 cm/s AV Area Cont Eq vti 2.5 cm squared AV Area Cont Eq pk 2.6 cm squared MV Peak Velocity 90.0 cm/s MV Area PHT 5.0 cm squared Mitral E to A Ratio 0.9 MV E' Velocity 34.5 cm/s Mitral E to MV E' Ratio 9.3 Mitral E to LV E' Lateral Ratio 10.2 Mitral E to LV E' Septal Ratio 8.5 Right Atrial Pressure 3.0 mmHg PV Peak Velocity 51.0 cm/s RV Acceleration Time 0.1 s RV Ejection Time 0.3 s RV AcT/ET 0.4 FINDINGS Left Ventricle Mildly reduced LV systolic function with EF about 45 to 50% with mild to moderate lateral wall hypokinesis. Stage I diastolic dysfunction. Right Ventricle The right ventricle is normal in size and function. Right Atrium The right atrium is normal in size. Left Atrium The left atrium is normal in size. Mitral Valve Structurally normal mitral valve without significant stenosis or prolapse. There is mild mitral regurgitation. Aortic Valve Structurally normal aortic valve without significant sclerosis or stenosis. There is no aortic regurgitation. Tricuspid Valve Structurally normal tricuspid valve without significant stenosis . There is trivial regurgitation. Pulmonary artery systolic pressure is normal. Pulmonic Valve Structurally normal pulmonic valve without significant stenosis. There is no pulmonic regurgitation. Pericardium Normal pericardium without effusion. Aorta Normal ascending aorta dimension. IVC The inferior vena cava appears normal. CONCLUSIONS Arjun Ward MD (Electronically Signed) Final Date: 07 August 2023 09:08 S
--- NOTE | 2023-08-07 | PC.NURSE ---
around 2129 pt stated he would want something to help him sleep. he then also stated he had back pain and would need something for that. nurse messaged with requests. new orders received and meds given.
[2023-08-07 05:13] LABS: Basophils # 0.1 10^3/uL (0.0-0.1); Basophils % 0.8 %; Eosinophils # 0.2 10^3/uL (0.0-0.8); Eosinophils % 2.6 %; Hematocrit 45.2 % (37-53); Lymphocytes # 4.5 10^3/uL (0.8-4.8); Lymphocytes % 53.7 %; Mean Corpuscular HGB Conc 33.2 g/dL (30-55); Mean Corpuscular Hemoglobin 29.9 pg (27-33); Mean Corpuscular Volume 90.2 fl (82-101); Mean Platelet Volume 8.8 fL (7.4-10.4); Monocytes # 0.6 10^3/uL (0.2-0.9); Monocytes % 7.6 %; Neutrophils # 2.92 10^3/uL (1.8-7.7); Neutrophils % 34.9 %; Nucleated Red Blood Cells % 0 %; Platelet Count 261 10^3/cmm (157-399); Red Blood Count 5.01 10^6/uL (3.85-5.65); Red Cell Distribution Width 12.5 % (12.1-15.1); White Blood Count 8.38 10^3/uL (3.29-11.43)
[2023-08-07 05:35] LABS: Alanine Aminotransferase 33 U/L (0-41); Albumin Level 3.7 g/dL (3.5-5.2); Alkaline Phosphatase 68 U/L (40-130); Anion Gap 14.4 (5-19); Aspartate Amino Transferase 20 U/L (0-40); Blood Urea Nitrogen 13 mg/dL (6-20); Calcium 8.9 mg/dL (8.5-10.5); Carbon Dioxide 24 mmol/L (22-29); Chloride 104 mmol/L (98-107); Globulin 2.8 g/dL (1.3-4.6); Glomerular Filtration Rate 91.7 mL/min (90-130); Glucose 150 mg/dL (65-115); Osmolality Calculated 291 mOsm/kg (285-295); Potassium 3.4 mmol/L (3.5-5.1); Sodium 139 mmol/L (136-145); Total Bilirubin 0.3 mg/dL (0.15-1.2); Total Protein 6.5 g/dL (6.6-8.7)
--- NOTE | 2023-08-07 06:15 | PC.NURSE ---
upon initial assessment of patient from er n 08/06, pt stated he didnt want to receive the nitro drip and asked if we could stop it. dr was notified of request and med was put on hold. nurse notified pt that if his chest pain returned we would then reevaluate the need to start it again. pt stated understanding. pt was evaluated for cp throughout shift.
[2023-08-07] MEDS: aspirin 81 mg EC Tablet PO (06:20)
[2023-08-07] MEDS: escitalopram 10 mg Tablet 20 MG PO (06:20)
[2023-08-07] MEDS: CLONazepam 1 mg Tablet PO ×3 (07:34→20:31)
[2023-08-07] MEDS: clopidogrel 75 mg Tablet PO (08:38)
[2023-08-07] MEDS: lisinopril 20 mg Tablet PO (08:38)
[2023-08-07] MEDS: pantoprazole DR 40 mg Tablet PO (08:38)
[2023-08-07] MEDS: morphine 4 mg/mL SDV 1 mL 2 MG IVP (08:47)
--- NOTE | 2023-08-07 10:19 | PM.CONSULT ---
Providers/Reason For Consult Consulting Physician/Specialty*: Cardiology Reason for Consult*: Cardiology Attending Physician: Lilliam Parham MD Primary Care Provider: Nilesh Hutchinson MD History of Present Illness History of Present Illness Rudy Crawford is a 43 year old male with a previous history of coronary artery disease and myocardial infarction and PCI and 2 stents placement to the right coronary artery about 5 years ago. 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 Patient is only on aspirin. He is a smoker and drinker. He is homeless. He was admitted to the hospital with chest pain described as chest tightness lasting 10 minutes at the time recurrent over the last couple days. EKG in emergency room showed normal sinus rhythm with no acute ischemic changes his troponins were all negative. His echocardiogram done today showed mildly reduced LV function with EF about 45 to 50% with lateral wall hypokinesis. Currently pain-free. His troponins were all negative. Review of Systems Const: Denies: fever(s), chills or diaphoresis Eyes: Denies: change in vision Card: Denies: chest pain, palpitations or syncope Resp: Denies: dyspnea GI: Denies: abdominal pain, nausea or vomiting : Denies: dysuria, urinary frequency or urinary urgency Musc: Denies: neck pain or back pain Skin/Breast: Denies: rash Neuro: Denies: headache(s) or dizziness Psych: Denies: anxiety or depression Conor/Lymph: Denies: easy bruising or easy bleeding Medications/Allergies Home Medications Medication Instructions Recorded Confirmed Last Taken Type aspirin 81 mg tablet,delayed 81 mg PO QAM 10/29/22 08/06/23 08/06/23 History release clonidine HCl 0.1 mg tablet 0.1 mg PO TID PRN Blood Pressure 07/23/23 08/06/23 08/06/23 History atorvastatin 40 mg tablet 40 mg PO BEDTIME 30 days #30 tabs 07/28/23 08/06/23 08/05/23 Rx clonazepam 1 mg tablet 2 mg PO TID #42 tabs 07/28/23 08/06/23 08/06/23 Rx lisinopril 20 mg tablet 20 mg PO DAILY 30 days #30 tabs 07/28/23 08/06/23 08/06/23 Rx naltrexone microspheres 380 mg 380 mg IM ONCE #1 ea 07/28/23 08/06/23 Unknown Rx intramuscular suspension,extended release (Vivitrol) nitroglycerin 0.4 mg sublingual 0.4 mg sublingual Q5M PRN Chest 07/28/23 08/06/23 Unknown Rx tablet (Nitrostat) Pain #7 tabs pantoprazole 40 mg tablet,delayed 40 mg PO DAILY 30 days #30 tabs 07/28/23 08/06/23 08/06/23 Rx release propranolol 20 mg tablet 20 mg PO TID 30 days #90 tabs 07/28/23 08/06/23 08/06/23 Rx quetiapine 300 mg tablet 300 mg PO BEDTIME 30 days #30 tabs 07/28/23 08/06/23 08/05/23 Rx clonazepam 1 mg tablet (Klonopin) 1 mg PO QID 14 days #56 tabs 07/30/23 08/06/23 Unknown Rx escitalopram oxalate 20 mg tablet 20 mg PO QAM 08/06/23 08/06/23 08/06/23 History gabapentin 600 mg tablet 600 mg PO BID 08/06/23 08/06/23 08/06/23 History hydrochlorothiazide 25 mg tablet 25 mg PO QAM 08/06/23 08/06/23 08/06/23 History naproxen 500 mg tablet 500 mg PO Q12H PRN INFLAMATION AND 08/06/23 08/06/23 Unknown History PAIN trazodone 50 mg tablet 50 mg PO BID PRN Insomnia 08/06/23 08/06/23 Unknown History Allergies Allergy/AdvReac Type Severity Reaction Status Date / Time codeine Allergy ALGY-Hives Verified 07/23/23 14:32 ketorolac [From Toradol] Allergy ALGY-Hives Verified 07/23/23 14:32 Current Medications Generic Name Dose Route Start Last Admin Trade Name Freq PRN Reason Stop Dose Admin Aspirin 81 mg 08/07/23 06:00 08/07/23 06:20 Aspirin 81 Mg Ec Tablet PO 81 mg QAM BATOOL Administration Atorvastatin Calcium 40 mg 08/06/23 21:00 08/06/23 21:45 Atorvastatin 40 Mg Tablet PO 40 mg BEDTIME BATOOL Administration Clonazepam 1 mg 08/06/23 21:28 08/07/23 07:34 Clonazepam 1 Mg Tablet PO 1 mg QID PRN Administration ANXIETY Clopidogrel Bisulfate 75 mg 08/06/23 20:30 08/07/23 08:38 Clopidogrel 75 Mg Tablet PO 75 mg DAILY BATOOL Administration Enoxaparin Sodium 110 mg 08/07/23 06:00 08/07/23 06:26 Enoxaparin 120 Mg/0.8 Ml Syringe SUBCUT Not Given Q12H BATOOL Escitalopram Oxalate 20 mg 08/07/23 06:00 08/07/23 06:20 Escitalopram 10 Mg Tablet PO 20 mg QAM BATOOL Administration Nitroglycerin/Dextrose 50 mg in 250 mls @ 0 mls/hr 08/06/23 15:45 08/06/23 17:35 Nitroglycerin Drip IV 10 mcg/min .Q0M BATOOL 3 mls/hr Titration Protocol Per Protocol Sodium Chloride 1,000 mls @ 75 mls/hr 08/06/23 18:00 08/06/23 21:48 Sodium Chloride 0.9% IV 75 mls/hr .[id number] BATOOL Administration Lisinopril 20 mg 08/07/23 09:00 08/07/23 08:38 Lisinopril 20 Mg Tablet PO 20 mg DAILY BATOOL Administration Morphine Sulfate 2 mg 08/06/23 20:30 08/07/23 08:47 Morphine 4 Mg/Ml Sdv 1 Ml IVP 2 mg Q4H PRN Administration SEVERE PAIN Pantoprazole Sodium 40 mg 08/06/23 18:00 08/06/23 21:42 Pantoprazole 40 Mg Sdv IVP 40 mg Q24H BATOOL Administration Pantoprazole Sodium 40 mg 08/07/23 09:00 08/07/23 08:[address] 40 Mg Tablet PO 40 mg DAILY BATOOL Administration PFSH Acute PFSH: Medical History (Updated 08/06/23 @ 18:45 by Lilliam Parham MD) Benzodiazepine abuse 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 Chronic low back pain Chronic pain in left shoulder Had pain present when seen 12/2021 on his first visit and thought he might have a rotator cuff tear then Cigarette smoker Claudication in peripheral vascular disease Since 2017 with walking 100 yards or less Dental caries associated with enamel hypomineralization Depression Erectile dysfunction Generalized anxiety disorder with panic attacks Hx of carotid stenosis Hypertension Prediabetes Psychiatric care Torn rotator cuff Social History Smoking and tobacco/nicotine status: current every day tobacco/nicotine user cigarettes Packs smoked per day: 2 Alcohol intake: current Alcohol intake frequency: few times a week Substance/Drug Use: never Marital status: Single Number of children: 0 Current occupational status: employed Dietary Habits: Current diet type/program: regular Caffeine: Yes Caffeine intake frequency: coffee Vitals/I&O/Wt Last Vital Signs Temp 97.8 F 08/07/23 08:00 Pulse 81 08/07/23 08:00 Resp 19 H 08/07/23 08:47 BP 113/83 08/07/23 08:00 Pulse Ox 96 08/07/23 08:47 O2 Del Method Room Air 08/07/23 08:00 08/06/23 08/07/23 08/07/23 22:59 06:59 14:59 Intake Total 243.175 / 823.886 2694 / 1443.175 Output Total 500 / 500 Balance 243.175 / 243.175 700 / 943.175 Weight last 48 hrs Weight 250 lb Physical Exam Const: COMMON NORMALS: no acute distress, patient oriented x3, no limitations, alert and well nourished HENMT: COMMON NORMALS: normocephalic, atraumatic, hearing grossly normal bilaterally and gingiva normal HEAD & SCALP: normocephalic and atraumatic Eye: COMMON NORMALS: Equal, round and reactive pupils present and EOMs intact bilaterally GENERAL EYE: appearance normal, both eyes and all related structures PUPIL: Yes Equal, round and reactive pupils present Neck/C-Spine: COMMON NORMALS: no JVD GENERAL: Yes normal visual inspection CAROTIDS: Yes normal carotid upstroke Chest: COMMONS NORMALS: normal inspection of the chest CHEST: Yes Symmetrical chest wall rise Resp: COMMON NORMALS: normal respiratory effort, No retractions, clear to auscultation bilaterally and percussion normal EFFORT & INSPECTION: Yes symmetric chest movement AUSCULTATION: clear to auscultation bilaterally PERCUSSION: percussion normal Cardio: COMMON NORMALS: no JVD, regular rate, regular rhythm, S1 normal heart sound present, S2 normal heart sound present, No gallops present (Cardio), No clicks present (Cardio), No murmurs present (Cardio) and No rub (Cardio) RATE: regular rate RHYTHM: regular rhythm HEART SOUNDS: S1 normal heart sound present and S2 normal heart sound present GI: COMMON NORMALS: Normal to inspection, nondistended, normoactive bowel sounds present, Soft to palpation and non-tender PALPATION: Yes Soft to palpation : COMMON NORMALS: Yes no CVA tenderness BLADDER/KIDNEY EXAM: Yes no CVA tenderness Back/Pelvis: COMMON NORMALS: no CVA tenderness Extremity: COMMON NORMALS: normal to inspection, full ROM, no joint enlargement, no clubbing, cyanosis or edema, no calf tenderness and no pedal edema (Mild pedal edema bilaterally.) Neuro: COMMON NORMALS: patient oriented x3, moves all extremities, no focal motor deficits and no sensory deficits noted SENSORIUM/ORIENTATION: Yes alert GAIT: Yes Normal gait present Psych: COMMON NORMALS: mental status grossly normal APPEARANCE: Yes grossly normal Skin: COMMON NORMALS: no rashes or lesions noted GENERAL SKIN EXAM: no rashes or lesions noted Data 08/07/23 04:38 08/07/23 04:38 A&P Assessment and plan (1) CAD (coronary artery disease): History of PCI and 2 drug-eluting stent to the right coronary artery with previous myocardial infarction. Presenting with symptoms is suspicious for angina. Patient ruled out for myocardial infarction by serial troponins EKG no acute ischemic changes. Patient will benefit from stress test with imaging. Meanwhile we will continue aspirin Plavix statin and nitrate. (2) Hypertension: Adequately controlled continue current medications. Patient instructed stay on low-salt diet. (3) Cigarette smoker: Counseled to stop smoking. Coding Level of Care Code 09235 Diagnoses CAD (coronary artery disease) I25.10 Hypertension I10 Cigarette smoker F17.210
--- NOTE | 2023-08-07 13:20 | PC.NURSE ---
Patient asked for something that lasted longer than morphine for back pain. Nurse asked Dr. Parham.
--- OUTSIDE RECORDS SUMMARY | 2023-08-07 13:21 | XMS_ITS | Patient Health Record ---
Author Name Unknown Organization [facility] Address [address] [place] [address] Care Team Providers Care Quality Tech Name Role Phone Tamara Rodriguez APRN Primary Care Provider Unavail able Lilian Kapoor Unavailable [phone] Veronica Briseno Unavailable [phone] Melisa Mancilla Unavailable [phone] ALLERGIES Allergen (clinical drug ingredient) Drug/Non Drug Allergy documented on EMR Reaction Allergy Type Onset Date Status codeine Codeine Sulfate Unknown Drug Allergy A ctive REASON FOR REFERRAL No Information MEDICATIONS Medication SIG (Take, Route, Frequency, Duration) Notes Start Date End Date Status LaMICtal 25 MG 1 tablet Orally Once a day Active cloNIDine HCl ER 0.1 MG 1 tablet Orally Once a day Active Lisinopril 20 MG 1 tablet Orally Once a day Active Gabapentin 300 MG 1 capsule Orally Onc e a day Active KlonoPIN 0.5 MG 1 tablet Orally Once a day Active Citalopram Hydrobromide 20 MG 1 tablet Orally Once a day Active SEROquel 25 MG 1 tablet at bedtime Orally Once a day Active SOCIAL HISTORY Tobacco Use: Social History Observation Description Date Details (start date - stop date) Current Smoker NA - NA Sex Assigned At : Social History Observation Description Sex Assigned At Unknown Tobacco Use/Smoking Question Answer Notes Are you a current every day smoker PROBLEMS Problem Type ICD Code Onset Dates Problem Status W/U Status Risk SNOMED Code Notes Problem Alcohol abuse with intoxication, unspecified (F10.129) Active confirmed Problem Alcohol dependence, uncomplicated (F10.20) Active confirmed Alcohol dependence (28929335) Problem Major depressive disorder, recurrent severe without psychotic features (F33.2) Active confirmed Severe recurrent major depression without psychotic features (37660591) Problem Adjustment disorder, unspecified (F43.20) Active confirmed Adjustment disorder (77221964) Problem Adjustment disorder with mixed disturbance of emotions and conduct (F43.25) Active confirmed Adjustment disorder with mixed disturbance of emotions AND conduct (09191035) Problem Personality disorder, unspecified (F60.9) Active confirmed Personality disorder (66782504) Problem Alcohol abuse, in remission (F10.11) Active confirmed Nondependent alcohol abuse in remission (934748662) Problem Anxiety (F41.9) Active confirmed Anxiet y (13277158) Problem Alcohol abuse (F10.10) Active confirmed Alcohol abuse (09770819) Problem Insomnia (G47.00) Active confirmed Inso mnia (406436180) Problem Depression, major, recurrent (F33.9) Active confirmed Recurrent major depression (59555969) Problem Depression, major (F32.9) Active confirmed Major depression, single episode (93183676) Problem Depression (F32.9) Active confirmed Depression (448349171) Problem Insomnia, unspecified type (G47.00) Active confirmed 692205373 Problem Panic disorder (F41.0) Active confirmed Panic disorder (789042529) Problem PIERRE (generalized anxiety disorder) (F41.1) Active confirmed Generalized anxiety disorder (05857404) Problem Panic attack (F41.0) Active confirmed Panic attack (418787873) Problem Cannabis abuse (F12.10) Active confirmed Cannabis abuse (88168144) VITAL SIGNS Height-cm 172.72 cm 09/02/2022 Weight-kg 105.7 kg 09/02/2022 Height 68 in 09/02/2022 Weight 233.03 lbs 09/02/2022 BMI 35.43 kg/m2 09/02/2022 Encounters Encounter Location Date Provider Diagnosis [facility] [address] [place] [address] 09/02/2022 Finn PIERRE (generalized anxiety disorder) F41.1 ; Alcohol abuse F10.10 ; Panic disorder F41.0 ; Depression, major, recurrent F33.9 ; Adjustment disorder with mixed disturbance of emotions and conduct F43.25 ; Insomnia, unspecified type G47.00 and Medication management Z79.899 [facility] [address] [place] [address] 11/05/2022 Melisa Mancilla [facility] [address] [place] [address] 10/07/2022 Veronica Briseno ASSESSMENTS Encounter Date Diagnosis Assessment Notes Treatment Notes Treatment Clinical Notes 09/02/2022 Alcohol abuse (ICD-10 - F10.10) 09/02/2022 PIERRE (generalized anxiety disorder) (ICD-10 - F41.1) 09/02/2022 Panic disorder (ICD-10 - F41.0) 09/02/2022 Depression, major, recurrent (ICD-10 - F33.9) 09/02/2022 Adjustment disorder with mixed disturbance of emotions and conduct (ICD-10 - F43.25) 09/02/2022 Insomnia, unspecified type (ICD-10 - G47.00) 09/02/2022 Medication management (ICD-10 - Z79.899) PLAN OF TREATMENT No Information Insurance Providers Payer Name Payer Address Payer Phone Subscriber Number Group Number Insured Name Patient Relationship to Insured Coverage Start Date Coverage End Date [facility] [employer] [address] [place] [address] [id number] Rudy Crawford Self - patient is the insured [place] Medicaid [address] [place] [address] [phone] [id number] Rudy Crawford Self - patient is the insured
--- NOTE | 2023-08-07 14:02 | PM.PN ---
Subjective Subjective: nitro drip turned off last night chest pain free now has no other complaints at this time Vitals/I&O/Wt Last Vital Signs Temp 97.8 F 08/07/23 08:00 Pulse 77 08/07/23 12:00 Resp 18 08/07/23 12:00 BP 138/93 08/07/23 12:00 Pulse Ox 96 08/07/23 12:00 O2 Del Method Room Air 08/07/23 12:00 08/06/23 08/07/23 08/07/23 22:59 06:59 14:59 Intake Total 243.175 / 936.981 3166 / 4502.469 8211 / 1222 Output Total 500 / 500 Balance 243.175 / 243.175 700 / 136.333 4023 / 1222 Weight last 48 hrs Weight 113.398 kg Physical Exam Narrative: General: Alert oriented x3, patient seen sitting up in bed appearing comfortable HEENT: Normocephalic, atraumatic, EOMI, Cardio: Regular rate rhythm, normal S1-S2, Respiratory: Good bilateral air entry, no wheezes no rhonchi appreciated GI: Abdomen soft, nontender, nondistended, bowel sounds + Behavior: Appropriate and cooperative Extremities: no edema, no cyanosis Data 08/07/23 04:38 08/07/23 04:38 A&P Assessment and plan (1) CAD (coronary artery disease): (2) Major depressive disorder: (3) Hypertension: (4) Generalized anxiety disorder with panic attacks: (5) Unstable angina: Plan #Chest pain #Hx of Panic Attacks #Hyperlipidemia #Hypertension #Anxiety, depression ? Nitro drip dc ? Lovenox therapeutic twice daily ? Placed on ACS protocol. Aspirin, Plavix, atorvastatin, lisinopril. ? Serial EKGs ? Consult cardiology. recommended stress test ? echo reviewed -Continue clonazepam, escitalopram, pantoprazole ? Check hemoglobin A1c full code - Continue home meds - Nicotine patch offered - EKG neg - Trops negative - Plan for stress test wednesday Full code Attestations Medical Necessity Statement*: Stress test on wednesday Diagnoses CAD (coronary artery disease) I25.10 Major depressive disorder F32.9 Hypertension I10 Generalized anxiety disorder with panic attacks F41.1; F41.0 Unstable angina I20.0
[2023-08-07] MEDS: morphine IR 15 mg Tablet PO ×2 (14:33→20:31)
--- NOTE | 2023-08-07 16:12 | PC.NURSE ---
Chip Crusher Operator asked Dr. Parham via voalte if she wanted the NS @ 75 continued for and she replied no, discontinue. Nurses discontinuing order.
--- NOTE | 2023-08-07 18:02 | NUR.SHIFT ---
Patient spent a majority of the day sleeping. When asked if he had experienced any chest pain he said only a tiny bit. Nurse asked him if it was enough to take a nitroglycerin and he said no, it wasn't that bad. Patient stated that he would be OK with medicines given via shot and then nurse asked him if I could give him his Lovenox or blood thinner shot, and he said No, I don't need any blood thinner. Otherwise patient has been calm and easy going today with no complaints.
[2023-08-08] VITALS (11 sets, daily range): BP systolic 100–137; BP diastolic 68–94; PULSE 60–75; RESP 14–19; TEMP 36.5–36.7; O2SAT 93–97
[2023-08-08] MEDS: quetiapine 300 mg Tablet PO ×2 (02:11→21:40)
[2023-08-08] MEDS: escitalopram 10 mg Tablet 20 MG PO (06:34)
[2023-08-08] MEDS: aspirin 81 mg EC Tablet PO (06:52)
[2023-08-08] MEDS: pantoprazole DR 40 mg Tablet PO (10:03)
[2023-08-08] MEDS: lisinopril 20 mg Tablet PO (10:04)
[2023-08-08] MEDS: clopidogrel 75 mg Tablet PO (10:04)
[2023-08-08] MEDS: morphine IR 15 mg Tablet PO ×2 (10:56→18:24)
[2023-08-08] MEDS: CLONazepam 1 mg Tablet PO ×2 (10:57→18:23)
--- NOTE | 2023-08-08 12:00 | PM.PN ---
Subjective Subjective: Doing well without any chest pain or shortness of breath. Vitals/I&O/Wt Last Vital Signs Temp 97.7 F 08/08/23 08:00 Pulse 75 08/08/23 08:00 Resp 16 08/08/23 10:56 BP 119/82 08/08/23 08:00 Pulse Ox 96 08/08/23 10:56 O2 Del Method Room Air 08/08/23 08:00 08/07/23 08/08/23 08/08/23 22:59 06:59 14:59 Intake Total 480 / 1702 800 / 2502 480 / 480 Output Total 200 / 200 600 / 800 Balance 280 / 1502 200 / 1702 480 / 480 Weight last 48 hrs Weight 250 lb Physical Exam Const: COMMON NORMALS: no acute distress HENMT: COMMON NORMALS: normocephalic HEAD & SCALP: normocephalic Neck/C-Spine: COMMON NORMALS: full ROM and supple Resp: COMMON NORMALS: normal respiratory effort, No retractions, No use of accessory muscles, clear to auscultation bilaterally and percussion normal AUSCULTATION: clear to auscultation bilaterally PERCUSSION: percussion normal Extremity: COMMON NORMALS: normal to inspection, full ROM, capillary refill normal, no joint enlargement, no clubbing, cyanosis or edema, no calf tenderness and no pedal edema Data 08/07/23 04:38 08/07/23 04:38 A&P Assessment and plan (1) CAD (coronary artery disease): Status post previous PCI with drug-eluting stent 5 years ago. Admitted with chest pain negative troponins for HI. Has multiple risk factors for CAD. We will schedule exercise myocardial fusion schedule out underlying ischemia. Meanwhile continue medical therapy (2) Cigarette smoker: Instructed to quit smoking (3) Hypertension: Adequately controlled (4) Hyperlipemia: Continue statin LDL goal less than 70. Patient appears to lose weight and exercise. Attestations Medical Necessity Statement*: Patient will be discharged home tomorrow if his stress test is negative Other Attestations: Patient will be discharged home tomorrow if his stress test is negative. Coding Level of Care Code Acute Code for [facility] Diagnoses CAD (coronary artery disease) I25.10 Cigarette smoker F17.210 Hypertension I10 Hyperlipemia E78.5
--- NOTE | 2023-08-08 12:10 | PM.PN ---
Subjective Subjective: seen today no acute events overnight Vitals/I&O/Wt Last Vital Signs Temp 97.7 F 08/08/23 08:00 Pulse 75 08/08/23 08:00 Resp 16 08/08/23 10:56 BP 119/82 08/08/23 08:00 Pulse Ox 96 08/08/23 10:56 O2 Del Method Room Air 08/08/23 08:00 08/07/23 08/08/23 08/08/23 22:59 06:59 14:59 Intake Total 480 / 1702 800 / 2502 480 / 480 Output Total 200 / 200 600 / 800 Balance 280 / 1502 200 / 1702 480 / 480 Weight last 48 hrs Weight 113.398 kg Physical Exam Const: COMMON NORMALS: no acute distress HENMT: COMMON NORMALS: normocephalic HEAD & SCALP: normocephalic Neck/C-Spine: COMMON NORMALS: full ROM and supple Resp: COMMON NORMALS: normal respiratory effort, No retractions, No use of accessory muscles, clear to auscultation bilaterally and percussion normal AUSCULTATION: clear to auscultation bilaterally PERCUSSION: percussion normal Extremity: COMMON NORMALS: normal to inspection, full ROM, capillary refill normal, no joint enlargement, no clubbing, cyanosis or edema, no calf tenderness and no pedal edema Data 08/07/23 04:38 08/07/23 04:38 A&P Assessment and plan (1) CAD (coronary artery disease): (2) Major depressive disorder: (3) Hypertension: (4) Generalized anxiety disorder with panic attacks: (5) Unstable angina: Plan #Chest pain #Hx of Panic Attacks #Hyperlipidemia #Hypertension #Anxiety, depression ? Nitro drip dc ? Lovenox therapeutic twice daily ? Placed on ACS protocol. Aspirin, Plavix, atorvastatin, lisinopril. ? Serial EKGs ? Consult cardiology. recommended stress test ? echo reviewed -Continue clonazepam, escitalopram, pantoprazole ? Check hemoglobin A1c full code - Continue home meds - Nicotine patch offered - EKG neg - Trops negative - Plan for stress test wednesday Full code Attestations Medical Necessity Statement*: stress test in am Diagnoses CAD (coronary artery disease) I25.10 Major depressive disorder F32.9 Hypertension I10 Generalized anxiety disorder with panic attacks F41.1; F41.0 Unstable angina I20.0
[2023-08-09] VITALS (11 sets, daily range): BP systolic 111–139; BP diastolic 61–99; PULSE 63–92; RESP 14–19; TEMP 36.4–36.9; O2SAT 93–97
--- NOTE | 2023-08-09 | ECG_ITS ---
[facility] Test Date: 2023-08-09 Pat Name: Rudy Crawford Department: Room: 105 Gender: Male Tobacco Checkout Clerk: : 1980 Requested By: Arjun Tovar Order Number: [id number] Erika MD: Darya Clark M.D. Interpretive Statements NAME OF STUDY: LEXISCAN SESTAMIBI STRESS TEST INDICATION: Chest Pain PROCEDURE: At the baseline, the EKG revealed normal sinus rhythm with a normal ST Ts. The baseline heart was 85 bpm with a blood pressue of 128/87 mm of Hg Lexiscan was infused over a period of 20 seconds. A total of 0.4 milligrams of Lexiscan was infused. The stress phase was continued for a total of 5 minutes. Heart rate at the end of the stress phase was 90 bpm with a blood pressure 125/72 mm of Hg. The EKG at the peak infusion revealed no significant changes. Sestamibi was injected 20 seconds after the Lexiscan infusion. Heart rate at the end of the recovery phase was 87 bpm with a blood pressure of 124/73 mm of Hg. CONCLUSION: 1. No significant EKG changes with the LexiScan infusion 2. No LexiScan induced chest pain or cardiac arrhythmia 3. Normal blood pressure and heart rate response 4. Sestamibi/sestamibi perfusion scan pending; see separate report. Electronically Signed On 08-13-2023 13:17:38 GUEST SERVICES ATTENDANT by Darya Clark M.D. [email or web address]
[2023-08-09] MEDS: morphine IR 15 mg Tablet PO ×2 (04:45→11:19)
[2023-08-09] MEDS: CLONazepam 1 mg Tablet PO ×2 (04:46→11:19)
[2023-08-09 05:13] LABS: Anion Gap 10.5 (5-19); Blood Urea Nitrogen 14 mg/dL (6-20); Calcium 8.6 mg/dL (8.5-10.5); Carbon Dioxide 26 mmol/L (22-29); Chloride 107 mmol/L (98-107); Glomerular Filtration Rate 91.7 mL/min (90-130); Glucose 110 mg/dL (65-115); Osmolality Calculated 291 mOsm/kg (285-295); Potassium 3.5 mmol/L (3.5-5.1); Sodium 140 mmol/L (136-145)
[2023-08-09] MEDS: aspirin 81 mg EC Tablet PO (06:04)
[2023-08-09] MEDS: escitalopram 10 mg Tablet 20 MG PO (06:06)
--- NOTE | 2023-08-09 07:29 | PC.NURSE ---
Patient off of CSU for stress test.
[2023-08-09] MEDS: regadenoson 0.4 Mg/5 ml Syringe IVP (08:10)
--- NOTE | 2023-08-09 08:16 | P.PN_ITS ---
Subjective Subjective: Patient is 43 years old was admitted 2 days ago with chest pain. He has a history of coronary artery disease with stents placed out of state perhaps in [place]. Those details are not known. He has a history of hypertension, dyslipidemia, tobacco abuse, glucose intolerance and carotid stenosis. His EKGs and troponins were unremarkable. His troponins were 6. His EKG shows some nonspecific changes but no significant abnormalities. An echocardiogram was done yesterday which revealed an ejection fraction of 45 to 50% with lateral wall hypokinesis. There were no significant valvulopathy. He was seen by the web content editor on-call yesterday. Stress test is pending today. Currently he is down in the stress lab and has no complaints. Vitals/I&O/Wt Last Vital Signs Temp 97.7 F 08/09/23 04:00 Pulse 92 08/09/23 08:08 Resp 14 08/09/23 04:45 BP 135/70 08/09/23 08:08 Pulse Ox 95 08/09/23 04:45 O2 Del Method Room Air 08/09/23 04:00 08/08/23 08/09/23 08/09/23 22:59 06:59 14:59 Intake Total 920 / 1880 240 / 2120 Balance 920 / 1880 240 / 2120 Physical Exam Narrative: GENERAL: In general he looks comfortable HEENT: Exam within normal limits. NECK: Supple without jugular vein distention. The carotid upstroke is normal without bruits. BACK: Exam normal. LUNGS: Clear. HEART: Regular rate and rhythm. ABDOMEN: Benign without organomegaly or tenderness. EXTREMITIES: No edema. NEUROLOGIC: Exam normal. SKIN: Unremarkable. Data 08/07/23 04:38 08/09/23 04:08 A&P Assessment and plan (1) Hyperlipemia: (2) Currently smokes tobacco: (3) Prediabetes: (4) Generalized anxiety disorder with panic attacks: (5) Alcohol dependence: (6) CAD (coronary artery disease): (7) BMI 35.0-35.9,adult: (8) Claudication in peripheral vascular disease: (9) Hypertension: Plan Further recommendations depending upon the results of the stress test. Attestations Medical Necessity Statement*: Hospitalized for chest pain and history of coronary artery disease. Coding Level of Care Code 52536 Moderate MDM includes number and complexity of problems actively addressed during encounter, amount and/or complexity of data reviewed/ordered and described risk of complication, morbidity or mortality of management as document ed and Moderate Time for a total of 30 minutes, includes reviewing past or interval history, examining/interviewing patient, updating patient/family/other support and documenting encounter Diagnoses Hyperlipemia E78.5 Currently smokes tobacco F17.200 Prediabetes R73.03 Generalized anxiety disorder with panic attacks F41.1; F41.0 Alcohol dependence F10.20 CAD (coronary artery disease) I25.10 BMI 35.0-35.9,adult Z68.35 Claudication in peripheral vascular disease I73.9 Hypertension I10
[2023-08-09] MEDS: clopidogrel 75 mg Tablet PO (09:17)
[2023-08-09] MEDS: lisinopril 20 mg Tablet PO (09:17)
[2023-08-09] MEDS: pantoprazole DR 40 mg Tablet PO (09:17)
--- NOTE | 2023-08-09 12:01 | NMCV_ITS ---
NM [place] perf SPECT r/s* [id number] Rudy Crawford Age: 43 Gender: M : 1980 Exam Date: 08/09/2023 06:24 Ordering Phys: Arjun Tovar MD ([email or web address]) Technologist: ANEL Salazar Exam Location: [facility] Indications: CHEST PAIN STRESS TEST Please see separate stress test report in [facility] for full findings IMAGE PROTOCOL Rest/Stress 1 Lexiscan Day Radiopharmaceutical Dose (mCi) Administration Site Administered by Rest: Tc-99m 10.9 IV ANEL Abraham Sestamibi Stress:Tc-99m 32.9 IV ANEL Abraham Sestamibi Rest: 09-Aug-2023 60 Discovery 630 Stress: 09-Aug-2023 30 Discovery 630 0.4mg Lexiscan. Images obtained in supine and prone position. SPECT RESULTS Technical Quality: Excellent Raw Data Analysis: Normal Image Corrections: No attenuation or motion correction applied Summed Stress Score: 1 Summed Rest Score: 7 Summed Difference Score: 0 PERFUSION FINDINGS Slightly decreased tracer uptake was noted in the basal and mid inferior wall region, with no significant reversibility FUNCTIONAL RESULTS (calculated via Gated SPECT) Stress Image LV EF (%): 62 Stress EDV (mL):146 TID: 0.99 Stress ESV (mL):55 FUNCTIONAL FINDINGS: Segmental wall motion analysis revealing no gross wall motion abnormalities IMPRESSIONS 1. Myocardial perfusion imaging revealing a small area of persistent decreased tracer uptake in the inferior wall region, suggestive of myocardial scarring versus attenuation artifact. 2. Normal LV ejection fraction of 62%. 3. LV wall motion analysis revealing no gross wall motion abnormalities. 4. Mildly dilated LV cavity with end-systolic volume of 55 ml Low probability for coronary ischemia, based on the above findings No similar previous studies are available for comparison Dr Darya Clrak MD LOCATED WITHIN [facility] (Electronically Signed) Final Date: 09 August 2023 13:14 S
--- NOTE | 2023-08-09 12:11 | P.PN_ITS ---
Subjective Subjective: seen today awaiting results of stress test Vitals/I&O/Wt Last Vital Signs Temp 97.6 F 08/09/23 11:14 Pulse 80 08/09/23 11:14 Resp 14 08/09/23 11:19 BP 129/91 08/09/23 11:14 Pulse Ox 97 08/09/23 11:19 O2 Del Method Room Air 08/09/23 11:14 08/08/23 08/09/23 08/09/23 22:59 06:59 14:59 Intake Total 920 / 1880 240 / 2120 220 / 220 Balance 920 / 1880 240 / 0 220 / 220 Physical Exam Const: COMMON NORMALS: no acute distress HENMT: COMMON NORMALS: normocephalic HEAD & SCALP: normocephalic Neck/C-Spine: COMMON NORMALS: full ROM and supple Resp: COMMON NORMALS: normal respiratory effort, No retractions, No use of accessory muscles, clear to auscultation bilaterally and percussion normal AUSCULTATION: clear to auscultation bilaterally PERCUSSION: percussion normal Extremity: COMMON NORMALS: normal to inspection, full ROM, capillary refill n ormal, no joint enlargement, no clubbing, cyanosis or edema, no calf tenderness and no pedal edema Data 08/07/23 04:38 08/09/23 04:08 A&P Assessment and plan (1) CAD (coronary artery disease): (2) Major depressive disorder: (3) Hypertension: (4) Generalized anxiety disorder with panic attacks: (5) Unstable angina: Plan #Chest pain #Hx of Panic Attacks #Hyperlipidemia #Hypertension #Anxiety, depression ? Nitro drip dc ? Lovenox therapeutic twice daily ? Placed on ACS protocol. Aspirin, Plavix, atorvastatin, lisinopril. ? Serial EKGs ? Consult cardiology. recommended stress test ? echo reviewed -Continue clonazepam, escitalopram, pantoprazole ? Check hemoglobin A1c full code - Continue home meds - Nicotine patch offered - EKG neg - Trops negative - Plan for stress test wednesday. already complete, awaiting results. Full code Attestations Medical Necessity Statement*: Hospitalized for chest pain and history of coronary artery disease. Diagnoses CAD (coronary artery disease) I25.10 Major depressive disorder F32.9 Hypertension I10 Generalized anxiety disorder with panic attacks F41.1; F41.0 Unstable angina I20.0
--- NOTE | 2023-08-09 16:43 | P.DS_ITS ---
Discharge Providers Date of Admission: 08/06/23 17:36 Date of Discharge: August 09, 2023 Attending Provider at Admission: Lilliam Parham MD Attending Provider at Discharge: Lilliam Parham MD Primary Care Provider: Nilesh Hutchinson MD Diagnoses at Discharge Discharge Diagnosis (1) CAD (coronary artery disease): Status: Acute Permanent problem details: History of ND, ~2018, now with panic attacks with chest pain, s/p stents x2 (2) Major depressive disorder: Status: Acute (3) Hypertension: Status: Acute (4) Generalized anxiety disorder with panic attacks: Status: Acute (5) Unstable angina: Status: Resolved Reason for Visit Reason for Visit: CP Hospital Course Hospital Course admitted for chest pain and required nitro drip in er. placed on acs protocol. stress test performed. cardiology on board. patient discharged home in stable condition with the addition of plavix. An echocardiogram was done yesterday which revealed an ejection fraction of 45 to 50% with lateral wall hypokinesis.? There were no significant valvulopathy. 1.? Myocardial perfusion imaging revealing a small area of persistent decreased ?tracer uptake in the? inferior wall region, suggestive of myocardial scarring ?versus attenuation artifact. ?2.? Normal LV ejection fraction of 62%. ?3.? LV wall motion analysis revealing no gross wall motion abnormalities. ?4.? Mildly dilated LV cavity with end-systolic volume of 55 ml ?Low probability for coronary ischemia, based on the above findings ?No similar previous studies are available for comparison He will be setup with cardiology as outpatient to establish care. Physical Exam Const: COMMON NORMALS: no acute distress HENMT: COMMON NORMALS: normocephalic HEAD & SCALP: normocephalic Neck/C-Spine: COMMON NORMALS: full ROM and supple Resp: COMMON NORMALS: normal respiratory effort, No retractions, No use of accessory muscles, clear to auscultation bilaterally and percussion normal AUSCULTATION: clear to auscultation bilaterally PERCUSSION: percussion normal Extremity: COMMON NORMALS: normal to inspection, full ROM, capillary refill normal, no joint enlargement, no clubbing, cyanosis or edema, no calf tenderness and no pedal edema Discharge Data Studies Completed and Pending Completed Studies During Hospitalization Category Date Time Status Cardiac Stress Test MIBI [Sestamibi Stress Test Request Exams 08/09/23 06:00 Draft ] Routine XR chest 1V portable [id number] Stat Exams 08/06/23 14:43 Completed NM [place] perf SPECT r/s* [id number] Routine Nuc Med 08/09/23 12:01 Completed CV. echo complete* [id number] Routine Ultrasound 08/07/23 Completed Radiology Impressions Chest X-Ray 08/06/23 14:43 IMPRESSION: No acute findings. Laboratory Results WBC 8.38 10^3/uL (3.29-11.43) 08/07/23 04:38 RBC 5.01 10^6/uL (3.85-5.65) 08/07/23 04:38 Hgb 15.00 g/dL (11.27-16.99) 08/07/23 04:38 Hct 45.2 % (37-53) 08/07/23 04:38 MCV 90.2 fl (82-101) 08/07/23 04:38 MCH 29.9 pg (27-33) 08/07/23 04:38 MCHC 33.2 g/dL (30-55) 08/07/23 04:38 RDW 12.5 % (12.1-15.1) 08/07/23 04:38 Plt Count 261 10^3/cmm (157-399) 08/07/23 04:38 MPV 8.8 fL (7.4-10.4) 08/07/23 04:38 Neut % (Auto) 34.9 % 08/07/23 04:38 Lymph % (Auto) 53.7 % 08/07/23 04:38 [place] % (Auto) 7.6 % 08/07/23 04:38 Eos % (Auto) 2.6 % 08/07/23 04:38 Baso % (Auto) 0.8 % 08/07/23 04:38 Neut # (Auto) 2.92 10^3/uL (1.8-7.7) 08/07/23 04:38 Lymph # (Auto) 4.5 10^3/uL (0.8-4.8) 08/07/23 04:38 [place] # (Auto) 0.6 10^3/uL (0.2-0.9) 08/07/23 04:38 Eos # (Auto) 0.2 10^3/uL (0.0-0.8) 08/07/23 04:38 Baso # (Auto) 0.1 10^3/uL (0.0-0.1) 08/07/23 04:38 Nucleated RBC % (auto) 0 % 08/07/23 04:38 Nucleated RBCs # 0.0 /100WBC 08/07/23 04:38 Sodium 140 mmol/L (136-145) 08/09/23 04:08 Potassium 3.5 mmol/L (3.5-5.1) 08/09/23 04:08 Chloride 107 mmol/L (98-107) 08/09/23 04:08 Carbon Dioxide 26 mmol/L (22-29) 08/09/23 04:08 Anion Gap 10.5 (5-19) 08/09/23 04:08 BUN 14 mg/dL (6-20) 08/09/23 04:08 Creatinine 0.9 mg/dL (0.7-1.2) 08/09/23 04:08 GFR Calculation 91.7 mL/min (90-130) 08/09/23 04:08 Glucose 110 mg/dL (65-115) 08/09/23 04:08 Estimat Average Glucose 154 08/06/23 14:06 Hemoglobin A1c 7.0 % (4.0-6.0) H 08/06/23 14:06 Calculated Osmolality 291 mOsm/kg (285-295) 08/09/23 04:08 Calcium 8.6 mg/dL (8.5-10.5) 08/09/23 04:08 Magnesium 2.0 mg/dL (1.7-2.3) 08/07/23 04:38 Total Bilirubin 0.3 mg/dL (0.15-1.2) 08/07/23 04:38 AST 20 U/L (0-40) 08/07/23 04:38 ALT 33 U/L (0-41) 08/07/23 04:38 Alkaline Phosphatase 68 U/L (40-130) 08/07/23 04:38 Troponin T Baseline < 6 ng/L (0-15) 08/06/23 14:06 Troponin T 120 Minute < 6.0 ng/L (0-15) 08/06/23 16:18 Delta Troponin T 0 ABS# (0-10) 08/06/23 16:18 Troponin T Hi Sens 6Hr 6.24 ng/L (0-15) 08/06/23 20:52 Troponin T Hi Sens 6Hr Delta 0.93551 ng/L (0-12) 08/06/23 20:52 Total Protein 6.5 g/dL (6.6-8.7) L 08/07/23 04:38 Albumin 3.7 g/dL (3.5-5.2) 08/07/23 04:38 Globulin 2.8 g/dL (1.3-4.6) 08/07/23 04:38 Triglycerides 225 mg/dL (0-150) H 08/06/23 14:06 Cholesterol 157 mg/dL (0-200) 08/06/23 14:06 LDL Cholesterol, Calc 74 mg/dL (50-129) 08/06/23 14:06 HDL Cholesterol 38 mg/dL (60-100) L 08/06/23 14:06 LDL/HDL Ratio 1.95 RATIO (0.00-3.22) 08/06/23 14:06 Cholesterol/HDL Ratio 4.13 mg/dL (1.0-5.00) 08/06/23 14:06 TSH 0.47 uIU/mL (0.27-4.20) 08/06/23 14:06 Urine Color Yellow (Yellow) 08/06/23 14:41 Urine Appearance Clear (CLEAR) 08/06/23 14:41 Urine pH 7 (5-7) 08/06/23 14:41 Ur Specific [place] 1.010 (1.005-1.030) 08/06/23 14:41 Urine Protein Neg (Negative) 08/06/23 14:41 Urine Glucose (UA) 4+ (Normal) H 08/06/23 14:41 Urine Ketones 1+ (Negative) H 08/06/23 14:41 Urine Blood Neg (Negative) 08/06/23 14:41 Urine Nitrate Negative (Negative) 08/06/23 14:41 Urine Bilirubin Neg (Negative) 08/06/23 14:41 Urine Urobilinogen Norm mg/dL (Negative) 08/06/23 14:41 Ur Leukocyte Esterase Negative (Negative) 08/06/23 14:41 Vitals Last Vital Signs Temp 98.5 F 08/09/23 15:42 Pulse 81 08/09/23 15:42 Resp 16 08/09/23 15:42 BP 133/61 08/09/23 15:42 Pulse Ox 94 08/09/23 15:42 O2 Del Method Room Air 08/09/23 15:42 Discharge Plan Discharge Patient Disposition: Home Condition: Stable Prescriptions: New clopidogrel 75 mg Tablet 75 mg PO DAILY Qty: 30 0RF Continued aspirin 81 mg tablet,delayed release (DR/EC) 81 mg PO QAM clonidine HCl 0.1 mg tablet 0.1 mg PO TID PRN (Reason: Blood Pressure) quetiapine 300 mg Tablet 300 mg PO BEDTIME 30 Days Qty: 30 1RF clonazepam 1 mg Tablet 2 mg PO TID Qty: 42 1RF pantoprazole 40 mg Tablet,Delayed Release (Dr/Ec) 40 mg PO DAILY 30 Days Qty: 30 1RF lisinopril 20 mg Tablet 20 mg PO DAILY 30 Days Qty: 30 1RF atorvastatin 40 mg Tablet 40 mg PO BEDTIME 30 Days Qty: 30 1RF Vivitrol 380 mg suspension,extended rel recon 380 mg IM ONCE Qty: 1 1RF Rx Instructions: Take IM once per month (next due date is 08/25/23 nitroglycerin [Nitrostat] 0.4 mg Tablet, Sublingual 0.4 mg SUBLINGUAL Q5M PRN (Reason: Chest Pain) Qty: 7 1RF Rx Instructions: do not exceed 3 doses per episode gabapentin 600 mg tablet 600 mg PO BID trazodone 50 mg tablet 50 mg PO BID PRN (Reason: Insomnia) escitalopram oxalate 20 mg tablet 20 mg PO QAM hydrochlorothiazide 25 mg tablet 25 mg PO QAM naproxen 500 mg tablet 500 mg PO Q12H PRN (Reason: INFLAMATION AND PAIN) Held propranolol 20 mg Tablet 20 mg PO TID 30 Days Qty: 90 1RF Hold Instructions: see pcp Discontinued clonazepam [Klonopin] 1 mg tablet 1 mg PO QID 14 Days Qty: 56 0RF Rx Instructions: Start in 14 days 08/13/23 Discharge Orders: Discharge Order (Routine); Ordered 08/09/23 Ordered By: Lilliam Parham Referrals: Nilesh Hutchinson MD [Primary Care Provider] - (We have notified your physician's clinic of the need for a follow-up appointment to be scheduled. If you have not heard from them within the next 2 business days, please call them directly. You may also reach out to our hydrogen plant operations manager at [phone] and she can assist you.) Michael Cabrera M.D [Physician] - 2 weeks Discharge Diet: Cardiac Discharge Activity: Resume usual activity Patient Instructions: Clopidogrel (By mouth) (Plavix), Angina (DC), Coronary Artery Disease (DC), Hyperlipidemia (DC), Chest Pain Stoplight, Opioid Safety Discharge Attestations Time Spent in Discharge Care*: less than 30 min Quality Metrics Clinical Quality Measures [ No reported AMI, CVA or VTE this stay] Coding Level of Care Code 48494 Total time (in minutes) for Discharge: 20 Diagnoses CAD (coronary artery disease) I25.10 Major depressive disorder F32.9 Hypertension I10 Generalized anxiety disorder with panic attacks F41.1; F41.0 Unstable angina I20.0
--- NOTE | 2023-08-09 17:12 | PC.NURSE ---
Patient is discharged to self. He refused a ride and walked to the crisis center. He was offered a ride arrangement but refused it several times. Discharge paperwork was gone over in detail and he stated understanding.
== END 2023-08-09 17:12 | disposition home or self-care (01) | DRG 313 ==
LOC: ER 15:49 → CSU 08-07 07:27
PROVIDERS: Physician Assistant; Admitting Provider Internal Medicine; Emergency Provider Family Medicine; PCP Family Medicine Adult Medicine; Visit Provider Internal Medicine
DX: R07.9 Chest pain, unspecified (principal); Z59.00 Homelessness unspecified; I25.10 Atherosclerotic heart disease of native coronary artery without angina pectoris; Z95.5 Presence of coronary angioplasty implant and graft; I25.2 Old myocardial infarction; F41.1 Generalized anxiety disorder; F41.0 Panic disorder [episodic paroxysmal anxiety]; I10 Essential (primary) hypertension; Z79.82 Long term (current) use of aspirin; E78.5 Hyperlipidemia, unspecified; G89.29 Other chronic pain; M54.50 Low back pain, unspecified; F17.210 Nicotine dependence, cigarettes, uncomplicated; F32.9 Major depressive disorder, single episode, unspecified; I65.29 Occlusion and stenosis of unspecified carotid artery; I73.9 Peripheral vascular disease, unspecified; R73.03 Prediabetes
CPT/HCPCS: 36415; 71045; 78452; 80048; 80053; 80061; 81003; 83036; 83735; 84443; 84484; 85025; 93005; 93017; 93306; 96372; 96374; 96375; 96376; 99285; A9500; C9113; J1650; J2270; J2785; J3490; J7030

== ENCOUNTER 2023-08-13 13:56 | Inpatient (IN) | payer MEDICAID, SELFPAY ==
[2023-08-13 14:00] VITALS: BP 127/86; PULSE 111; RESP 18; TEMP 36.8; O2SAT 97; BMI 37.5
--- NOTE | 2023-08-13 14:09 | ED.C_ITS ---
Documented by User: ADARSH Barcenas 08/16/23 09:01 HPI - Psych General: Chief Complaint: Psychiatric Symptoms Stated Complaint: Homicidle,MHE Time Seen by Provider: 08/13/23 14:05 Source: patient Mode of arrival: ambulatory Limitations: no limitations History of Present Illness: Patient is a 43-year-old male presents to ED today stating he is homicidal towards drug addicts and meth heads . He states if one more meth head talks to him or knocks on his door then he is going to hurt them. No specific plan. Denies suicidal ideations. No psychosis symptoms. Recently admitted to [facility] earlier this month. Reports being drug free for 8 years. Does have a history of alcohol abuse. MD complaint: other (homicidal ideation) Onset (ago): day(s) Duration: constant Relieving factors: none Context: significant life stressor Associated psychiatric symptoms: homicidal ideation Associated symptoms: Reports homicidal ideation; Deny auditory hallucinations, visual hallucinations, depression or suicidal ideation Treatments prior to arrival: none Review of Systems Const: Denies: fever(s), chills, body aches, fatigue or malaise Card: Denies: chest pain, palpitations, lightheadedness or syncope Resp: Denies: dyspnea GI: Denies: abdominal pain, nausea, vomiting or diarrhea Skin/Breast: Denies: rash Neuro: Denies: headache(s) Psych: Reports: sleeping less, irritability and homicidal ideation; Denies: anxiety, depression, hopelessness, visual hallucinations, auditory hallucinations or suicidal ideation [facility] ED PFSH: Medical History Benzodiazepine abuse 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 Chronic low back pain Chronic pain in left shoulder Had pain present when seen 12/2021 on his first visit and thought he might have a rotator cuff tear then Cigarette smoker Claudication in peripheral vascular disease Since [place] 2018 with walking 100 yards or less Dental caries associated with enamel hypomineralization Depression Erectile dysfunction Generalized anxiety disorder with panic attacks Hx of carotid stenosis Hypertension Prediabetes Psychiatric care Torn rotator cuff Social History Smoking and tobacco/nicotine status: current every day tobacco/nicotine user cigarettes Packs smoked per day: 2 Alcohol intake: current Alcohol intake frequency: few times a week Substance/Drug Use: never Marital status: Single Number of children: 0 Current occupational status: employed Physical Exam Const: COMMON NORMALS: patient oriented x3, no limitations, alert and well nourished GENERAL APPEARANCE: anxious NUTRITIONAL APPEARANCE: overweight ORIENTATION/CONSCIOUSNESS: Yes awake, Yes oriented to person, Yes oriented to place and Yes oriented to time HENMT: COMMON NORMALS: normocephalic and atraumatic HEAD & SCALP: normal to inspection, normocephalic and atraumatic Resp: COMMON NORMALS: normal respiratory effort and clear to auscultation bilaterally AUSCULTATION: clear to auscultation bilaterally Cardio: COMMON NORMALS: regular rhythm RATE: tachycardic RHYTHM: regular rhythm Extremity: GENERAL: Yes normal exam except as noted Neuro: FARHAD COMA SCALE: document GCS findings Farhad coma scale eye opening: Spontaneous Farhad coma scale verbal response: Orientated [place] coma scale motor response: Obey commands [place] coma scale total score: 15 COMMON NORMALS: patient oriented x3, moves all extremities, no focal motor deficits and no sensory deficits noted SENSORIUM/ORIENTATION: Yes alert, Yes oriented to person, Yes oriented to place and Yes oriented to time Psych: COMMON NORMALS: mental status grossly normal, Normal thought process present, cooperative, speech normal, denies hallucinations and denies suicidal ideation APPEARANCE: Yes grossly normal ATTITUDE: Yes agitated ACTIVITY/MOTOR BEHAVIOR: Yes fidgeting SPEECH: Yes normal speech MOOD & AFFECT: Yes hostile affect THOUGHT PROCESS: Normal thought process present THOUGHT CONTENT: Yes Homicidality present ATTENTION/CONCENTRATION: Yes attention grossly intact MEMORY/COGNITION: Yes memory grossly intact and Yes cognition grossly intact INSIGHT: Fair insight present (Psych) JUDGEMENT: Fair judgement present (Psych) Course Consultations: Consultation #1: Dr. Wagner-will assess patient in ED after assessment he requests admission Vital Signs: Vital signs: Vital Signs Temperature 98.1 F 08/15/23 20:09 Pulse Rate 68 08/16/23 06:00 Respiratory Rate 18 08/16/23 06:00 Blood Pressure 105/66 08/16/23 06:00 Pulse Oximetry 94 08/16/23 06:00 Oxygen Delivery Me thod Room Air 08/15/23 20:09 MDM - Psych Lab Data 08/13/23 14:20 08/13/23 14:20 Laboratory Results WBC 10.83 10^3/uL (3.29-11.43) 08/13/23 14:20 RBC 5.96 10^6/uL (3.85-5.65) H 08/13/23 14:20 Hgb 17.90 g/dL (11.27-16.99) H 08/13/23 14:20 Hct 53.0 % (37-53) 08/13/23 14:20 MCV 88.9 fl (82-101) 08/13/23 14:20 MCH 30.0 pg (27-33) 08/13/23 14:20 MCHC 33.8 g/dL (30-55) 08/13/23 14:20 RDW 13.0 % (12.1-15.1) 08/13/23 14:20 Plt Count 380 10^3/cmm (157-399) 08/13/23 14:20 MPV 8.2 fL (7.4-10.4) 08/13/23 14:20 Neut % (Auto) 56.1 % 08/13/23 14:20 Lymph % (Auto) 34.0 % 08/13/23 14:20 Tift % (Auto) 7.7 % 08/13/23 14:20 Eos % (Auto) 1.0 % 08/13/23 14:20 Baso % (Auto) 0.6 % 08/13/23 14:20 Neut # (Auto) 6.08 10^3/uL (1.8-7.7) 08/13/23 14:20 Lymph # (Auto) 3.7 10^3/uL (0.8-4.8) 08/13/23 14:20 Tift # (Auto) 0.8 10^3/uL (0.2-0.9) 08/13/23 14:20 Eos # (Auto) 0.1 10^3/uL (0.0-0.8) 08/13/23 14:20 Baso # (Auto) 0.1 10^3/uL (0.0-0.1) 08/13/23 14:20 Nucleated RBC % (auto) 0 % 08/13/23 14:20 Nucleated RBCs # 0.0 /100WBC 08/13/23 14:20 Sodium 140 mmol/L (136-145) 08/13/23 14:20 Potassium 4.0 mmol/L (3.5-5.1) 08/13/23 14:20 Chloride 100 mmol/L (98-107) 08/13/23 14:20 Carbon Dioxide 23 mmol/L (22-29) 08/13/23 14:20 Anion Gap 21.0 (5-19) H 08/13/23 14:20 BUN 14 mg/dL (6-20) 08/13/23 14:20 Creatinine 0.9 mg/dL (0.7-1.2) 08/13/23 14:20 GFR Calculation 91.7 mL/min (90-130) 08/13/23 14:20 Glucose 155 mg/dL (65-115) H 08/13/23 14:20 Calculated Osmolality 294 mOsm/kg (285-295) 08/13/23 14:20 Calcium 10.7 mg/dL (8.5-10.5) H 08/13/23 14:20 Total Bilirubin 1.0 mg/dL (0.15-1.2) 08/13/23 14:20 AST 38 U/L (0-40) 08/13/23 14:20 ALT 58 U/L (0-41) H 08/13/23 14:20 Alkaline Phosphatase 91 U/L (40-130) 08/13/23 14:20 Total Protein 8.6 g/dL (6.6-8.7) 08/13/23 14:20 Albumin 4.8 g/dL (3.5-5.2) 08/13/23 14:20 Globulin 3.8 g/dL (1.3-4.6) 08/13/23 14:20 Salicylates < 0.3 mg/dL (3-10) L 08/13/23 14:20 Urine Opiates Screen Negative ng/mL (Negative) 08/13/23 15:03 Acetaminophen < 5.0 ug/mL (10-30) L 08/13/23 14:20 Ur Barbiturates Screen Negative ng/mL (Negative) 08/13/23 15:03 Ur Phencyclidine Scrn Negative ng/mL (Negative) 08/13/23 15:03 Ur Amphetamines Screen Negative ng/mL (Negative) 08/13/23 15:03 U Benzodiazepines Scrn Negative ng/mL (Negative) 08/13/23 15:03 Urine Cocaine Screen Negative ng/mL (Negative) 08/13/23 15:03 U Marijuana (THC) Screen Negative ng/mL (Negative) 08/13/23 15:03 Ethyl Alcohol < 10 mg/dL (0-10) 08/13/23 14:20 Discharge Plan Discharge Patient Disposition: Admitted As Inpatient Admit Provider: Gigi Wagner Clinical Impression: Homicidal ideation Condition: Stable Coding Level of Care Code ED Open Developer Operator for Chg Fwd Documented by User: Milad Hernandez MD 08/13/23 17:52 HPI - Psych General: Chief Complaint: Psychiatric Symptoms Stated Complaint: Homicidle,MHE Time Seen by Provider: 08/13/23 14:05 PFSH ED PFSH: Medical History Benzodiazepine abuse 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 Chronic low back pain Chronic pain in left shoulder Had pain present when seen 12/2021 on his first visit and thought he might have a rotator cuff tear then Cigarette smoker Claudication in peripheral vascular disease Since 2017 with walking 100 yards or less Dental caries associated with enamel hypomineralization Depression Erectile dysfunction Generalized anxiety disorder with panic attacks Hx of carotid stenosis Hypertension Prediabetes Psychiatric care Torn rotator cuff Social History Smoking and tobacco/nicotine status: current every day tobacco/nicotine user cigarettes Packs smoked per day: 2 Alcohol intake: current Alcohol intake frequency: few times a week Substance/Drug Use: never Marital status: Single Number of children: 0 Current occupational status: employed Physical Exam Neuro: FARHAD COMA SCALE: document GCS findings Farhad coma scale total score: 15 Course Vital Signs: Vital signs: Vital Signs Temperature 98.1 F 08/15/23 20:09 Pulse Rate 68 08/16/23 06:00 Respiratory Rate 18 08/16/23 06:00 Blood Pressure 105/66 08/16/23 06:00 Pulse Oximetry 94 08/16/23 06:00 Oxygen Delivery Me thod Room Air 08/15/23 20:09 MDM - Psych Medical Decision Making Patient was evaluated by ADARSH Barcenas. She did discuss the case with Dr. Wagner, psychiatrist. Dr. Wagner has excepted the patient to the Neuropsych Unit. Orders have been placed. Patient is stable. Lab Data 08/13/23 14:20 08/13/23 14:20 Laboratory Results WBC 10.83 10^3/uL (3.29-11.43) 08/13/23 14:20 RBC 5.96 10^6/uL (3.85-5.65) H 08/13/23 14:20 Hgb 17.90 g/dL (11.27-16.99) H 08/13/23 14:20 Hct 53.0 % (37-53) 08/13/23 14:20 MCV 88.9 fl (82-101) 08/13/23 14:20 MCH 30.0 pg (27-33) 08/13/23 14:20 MCHC 33.8 g/dL (30-55) 08/13/23 14:20 RDW 13.0 % (12.1-15.1) 08/13/23 14:20 Plt Count 380 10^3/cmm (157-399) 08/13/23 14:20 MPV 8.2 fL (7.4-10.4) 08/13/23 14:20 Neut % (Auto) 56.1 % 08/13/23 14:20 Lymph % (Auto) 34.0 % 08/13/23 14:20 Tift % (Auto) 7.7 % 08/13/23 14:20 Eos % (Auto) 1.0 % 08/13/23 14:20 Baso % (Auto) 0.6 % 08/13/23 14:20 Neut # (Auto) 6.08 10^3/uL (1.8-7.7) 08/13/23 14:20 Lymph # (Auto) 3.7 10^3/uL (0.8-4.8) 08/13/23 14:20 Tift # (Auto) 0.8 10^3/uL (0.2-0.9) 08/13/23 14:20 Eos # (Auto) 0.1 10^3/uL (0.0-0.8) 08/13/23 14:20 Baso # (Auto) 0.1 10^3/uL (0.0-0.1) 08/13/23 14:20 Nucleated RBC % (auto) 0 % 08/13/23 14:20 Nucleated RBCs # 0.0 /100WBC 08/13/23 14:20 Sodium 140 mmol/L (136-145) 08/13/23 14:20 Potassium 4.0 mmol/L (3.5-5.1) 08/13/23 14:20 Chloride 100 mmol/L (98-107) 08/13/23 14:20 Carbon Dioxide 23 mmol/L (22-29) 08/13/23 14:20 Anion Gap 21.0 (5-19) H 08/13/23 14:20 BUN 14 mg/dL (6-20) 08/13/23 14:20 Creatinine 0.9 mg/dL (0.7-1.2) 08/13/23 14:20 GFR Calculation 91.7 mL/min (90-130) 08/13/23 14:20 Glucose 155 mg/dL (65-115) H 08/13/23 14:20 Calculated Osmolality 294 mOsm/kg (285-295) 08/13/23 14:20 Calcium 10.7 mg/dL (8.5-10.5) H 08/13/23 14:20 Total Bilirubin 1.0 mg/dL (0.15-1.2) 08/13/23 14:20 AST 38 U/L (0-40) 08/13/23 14:20 ALT 58 U/L (0-41) H 08/13/23 14:20 Alkaline Phosphatase 91 U/L (40-130) 08/13/23 14:20 Total Protein 8.6 g/dL (6.6-8.7) 08/13/23 14:20 Albumin 4.8 g/dL (3.5-5.2) 08/13/23 14:20 Globulin 3.8 g/dL (1.3-4.6) 08/13/23 14:20 Salicylates < 0.3 mg/dL (3-10) L 08/13/23 14:20 Urine Opiates Screen Negative ng/mL (Negative) 08/13/23 15:03 Acetaminophen < 5.0 ug/mL (10-30) L 08/13/23 14:20 Ur Barbiturates Screen Negative ng/mL (Negative) 08/13/23 15:03 Ur Phencyclidine Scrn Negative ng/mL (Negative) 08/13/23 15:03 Ur Amphetamines Screen Negative ng/mL (Negative) 08/13/23 15:03 U Benzodiazepines Scrn Negative ng/mL (Negative) 08/13/23 15:03 Urine Cocaine Screen Negative ng/mL (Negative) 08/13/23 15:03 U Marijuana (THC) Screen Negative ng/mL (Negative) 08/13/23 15:03 Ethyl Alcohol < 10 mg/dL (0-10) 08/13/23 14:20 No radiology studies performed this visit Discharge Plan Discharge Patient Disposition: Admitted As Inpatient Admit Provider: Gigi Wagner Clinical Impression: Homicidal ideation Condition: Stable Coding Level of Care Code ED Open Developer Operator for Adam Adair
[2023-08-13] MEDS: LORazepam 2 mg Tablet PO (14:24)
[2023-08-13 14:27] LABS: Basophils # 0.1 10^3/uL (0.0-0.1); Basophils % 0.6 %; Eosinophils # 0.1 10^3/uL (0.0-0.8); Lymphocytes # 3.7 10^3/uL (0.8-4.8); Mean Corpuscular HGB Conc 33.8 g/dL (30-55); Mean Corpuscular Volume 88.9 fl (82-101); Mean Platelet Volume 8.2 fL (7.4-10.4); Monocytes # 0.8 10^3/uL (0.2-0.9); Monocytes % 7.7 %; Neutrophils # 6.08 10^3/uL (1.8-7.7); Neutrophils % 56.1 %; Nucleated Red Blood Cells % 0 %; Platelet Count 380 10^3/cmm (157-399); Red Blood Count 5.96 10^6/uL (3.85-5.65); White Blood Count 10.83 10^3/uL (3.29-11.43)
[2023-08-13 14:48] LABS: Alanine Aminotransferase 58 U/L (0-41); Albumin Level 4.8 g/dL (3.5-5.2); Alkaline Phosphatase 91 U/L (40-130); Blood Urea Nitrogen 14 mg/dL (6-20); Calcium 10.7 mg/dL (8.5-10.5); Carbon Dioxide 23 mmol/L (22-29); Chloride 100 mmol/L (98-107); Globulin 3.8 g/dL (1.3-4.6); Glomerular Filtration Rate 91.7 mL/min (90-130); Glucose 155 mg/dL (65-115); Osmolality Calculated 294 mOsm/kg (285-295); Sodium 140 mmol/L (136-145); Total Protein 8.6 g/dL (6.6-8.7)
[2023-08-13 14:52] LABS: Acetaminophen < 5.0 ug/mL (10-30); Alcohol Level < 10 mg/dL (0-10); Salicylate < 0.3 mg/dL (3-10)
[2023-08-13 14:53] LABS: Aspartate Amino Transferase 38 U/L (0-40)
[2023-08-13 16:15] LABS: Amphetamines Screen Urine Negative (Negative); Barbiturates Screen Urine Negative (Negative); Benzodiazepines Screen Urine Negative (Negative); Cocaine Screen Urine Negative (Negative); Opiate Screen Urine Negative (Negative); PCP Screen Urine Negative (Negative); THC Screen Urine Negative (Negative)
[2023-08-13 17:50] VITALS: BP 135/84; PULSE 93; RESP 16; TEMP 36.7; O2SAT 97
[2023-08-13] MEDS: acetaminophen 325 mg Tablet 650 MG PO (18:52)
[2023-08-13 20:10] VITALS: BP 125/84; PULSE 86; RESP 20; TEMP 36.8; O2SAT 97
[2023-08-14 06:00] VITALS: BP 122/80; PULSE 76; RESP 20; TEMP 36.6; O2SAT 98
--- NOTE | 2023-08-14 07:05 | P.NPUHP_ITS ---
Providers/Chief Complaint Admitting Physician: Gigi Wagner MD Primary Care Provider: Nilesh Hutchinson MD Chief Complaint: [place],MHE HPI NPU History of Present Illness Rudy Crawford is a 43 year old male who presented to the emergency department with the following report: Chief Complaint: Psychiatric Symptoms Stated Complaint: [place],MHE Time Seen by Provider: 08/13/23 14:05 Source: patient Mode of arrival: ambulatory Limitations: no limitations History of Present Illness: Patient is a 43-year-old male presents to ED today stating he is homicidal towards drug addicts and meth heads . He states if one more meth head talks to him or knocks on his door then he is going to hurt them. No specific plan. Denies suicidal ideations. No psychosis symptoms. Recently admitted to NPU earlier this month. Reports being drug free for 8 years. Does have a history of alcohol abuse. MD complaint: other (homicidal ideation) Onset (ago): day(s) Duration: constant Relieving factors: none Context: significant life stressor Associated psychiatric symptoms: homicidal ideation Associated symptoms: Reports homicidal ideation; Deny auditory hallucinations, visual hallucinations, depression or suicidal ideation Treatments prior to arrival: none He was admitted to the neuropsychiatric unit for definitive treatment of those issues. He is known to this ghost writer through past inpatient hospitalization. His last psychiatric hospitalization ended 07/30/2023 and an excerpt of that summary is included below for context and the fact that there have been no substantive changes. It is noteworthy that a week later on 08/06/2023 he was admitted to the medical unit where some cardiac disease was noted and plans for continued follow-up were executed. He was discharged on 08/12/2023 from that and he returns now reporting being overwhelmed at home secondary to meth heads knocking on his door etc. He endorsed homicidality towards these individuals and we had a long discussion about the legal implications of him acting out in an aggressive way. We also had a long discussion about concerns related to malingering as well as concerns that this may have something to do with him not having enough Klonopin available even though he should have extra given the hospitalization. He categorically denies that this has anything to do with the Klonopin. We discussed moving forward with a plan to taper the Klonopin by 0.5 mg every 2 weeks such that he will be on 3-1/2 mg total daily for the next 2 weeks. We discussed this being a short hospitalization and a plan for him to reconsider where he is living if he can get along with the people there. Per his 07/30/2023 [facility] inpatient psychiatric discharge summary: Discharge Diagnosis (1) Major depressive disorder: Status: Acute (2) Panic disorder: Status: Inactive (3) Alcohol dependence: Status: Acute (4) Generalized anxiety disorder with panic attacks: Status: Acute Reason for Visit Reason for Visit: psych eval Brief History: History of Present Illness Rudy Crawford is a 43 year old male recently discharged last month from the neuropsychiatric unit who presented to the emergency room complaining of suicidal ideation and continued depression. The patient had stated that he had been discharged from [place] yesterday and reports that over the past 4 days his Klonopin had been decreased from 6 mg a day to 2 mg a day within a short period of time. He reports some irritability and agitation since this reduction. He had denied having used alcohol for the past few weeks. He reports that he has been homeless. He had reported that he had been struggling with panic attacks as well. Patient had stated that he has been feeling more hopeless and worthless. He reports sleep continuity disruption. He had reported that he was hopeful of finding a detention in the nearby area. He reports no acute changes otherwise and stated above. Current medications: gabapentin, aspirin, lisinopril, propranolol, quetiapine, trazodone, klonopin Previous discharge summary from NPU on 05/23/23 History of Present Illness Rudy Crawford is a 43 year old male who presented to the emergency department with the following report: Chief Complaint: Psychiatric Symptoms Stated Complaint: mag Time Seen by Provider: 05/22/23 16:58 History of Present Illness: Presents to the ER with complaints of suicidal ideations. Patient said the world just coming down around him. Last week patient lost his job, got really really drunk and decided to check himself into rehab down at [place] spent 3 days they are in when he got out felt that it he need just needed more time to help. Patient is having bad thoughts of suicide. Patient was on a bridge today and thought of jumping. Since patient lost his job and is planning on moving in with his girlfriend and having major life stressors. He was admitted to the neuropsychiatric unit for the definitive treatment of those issues. Patient presented today reporting that things are very stressed he reports that his anxiety is out of control and that he lost his job. He reports that he is temporarily homeless and that he is moving into a new place next week with some woman that he has a relationship with. He endorsed having suicidal thoughts but reports those have diminished. He endorses a history of having anxiety helps with Klonopin. He reports that his anxiety gets so [id number] that he has chest pains and feels like he might have a heart attack. He endorses maybe having a cardiac history. We reviewed his previous hospitalization from August of last year and an excerpt of that stay is included below for context and his report of limited/no substantive changes since that today. Outside of his current living arrangement issues. We discussed possible medications for his anxiety and he was very focused on not changing the Klonopin which we discussed that 2 mg p.o. 3 times daily is a very high dose. He reports it has been very effective but cannot explain why he was always anxious if it is very effective. He is not interested in any medications like SSRIs etc. reporting he knows what works. He had initially talked about leaving AMA but then reported he would stay but he seemed quite ambivalent about this stay overall. Per his 09/25/2022 [facility] inpatient psychiatric discharge summary: Discharge Diagnosis (1) Panic disorder: Status: Acute (2) Alcohol dependence: Status: Acute (3) Benzodiazepine abuse: Status: Acute Reason for Visit Reason for Visit: Suicidal ideation Brief History: History of Present Illness Rudy Crawford is a 42 year old male who had presented to his primary care nurse on 09/22/2020 2 in the morning requesting treatment for alcohol withdrawal. He reports that he wishes to stop his consumption of alcohol and stated that he was having withdrawal symptoms as he had reported having last consumed alcohol on the night of 09/21/2022. He had reported having consumed a gallon of fireball whiskey and reports having consumed a case of beer on a daily basis. He reports his consumption of alcohol has been increasing since he was taken abruptly off of his prescribed Klonopin of 2 mg/day. He had reported a previous history of panic attacks and considerable anxiety that had been worsening his cardiac problems. He states that he had not been prescribed Klonopin for over a month. He endorses a past history of withdrawal seizures although it is uncertain as to whether that was associated with withdrawal from benzodiazepines or alcohol. He had acknowledged no depression but states that his panic attacks have been more frequent over the past few months. He reports an extended history of chest pain shortness of breath difficulty swallowing and feeling like he is going to . He reports that these panic attacks occur without triggers frequently. Current medications: gabapentin 300mg bid, hydrochlorothiazide/lisinopril: 25mg/20mg, hydroxyzine 25mg bid Previous admission on 06/22/2022 at [facility]: Rudy Crawford is a 42 year old single white male with a history of panic attacks coronary artery disease and hypertension who reports to the emergency department with suicidal ideation with a plan to jump off of a bridge. He had reported that he had been feeling more depressed and reported uncontrolled anxiety over the past 3 months since he had ran out of his Klonopin 1 mg twice a day. He had reported that he has had chronic panic attacks for many years with unknown triggered panic attacks lasting approximately 40 minutes with associated chest pain shortness of breath numbing and tingling in his fingers and difficulty with breathing. He reports that his panic attacks have led him to the emergency department multiple times with complaints of chest pain. He reports that he had a heart attack a few years ago and he has had these panic attacks since that time. The patient reports being burdened by anxiety over the past few months. He reports that he had been unable to receive his Klonopin in [place], [place] where he had moved. He reports that he had recently moved back to the area and had not been able to see his primary care physician yet to get back on his Klonopin. The patient had reported diminished energy low motivation and depressed mood for the past month. He had endorsed having suicidal thoughts. He denied any psychotic symptoms. He denied any history of manic symptoms. He had reported a long history of chronic worry since his heart attack occurred. Past psychiatric history: Patient has a history of 1 inpatient hospitalization 2 years ago for suicidal ideation at [facility] in [facility]. He had reported no history of psychotherapy but reports a history of having been treated for panic attacks and depression with medication trials on Lexapro and xanax. He also reported a history of having been treated for opioid abuse with a history of having been in methadone clinic for a few years having last used methadone 6 years ago. Medical history: Chronic lower back pain peripheral vascular disease with claudication history of carotid stenosis history of hypertension, HTN Surgical history he has a history of placement of stent in the coronary artery he has a history of repair of a torn rotator cuff Allergies: Toradol Medications: Klonopin 1 mg twice a day aspirin 81 mg in the morning clonidine 0.1 mg twice a day nitroglycerin as needed Drug and alcohol history: He reports having begun use of opiates at the age of [age]. He had reported last use of opiates for treating pain few days ago. He had reported a past history of methadone treatment but reports no substance abuse inpatient or rehabilitation in the past. He had reported a past history of alcohol abuse but reports that he has not been drinking recently. He denies any history of benzodiazepine misuse. Family psychiatric history: alcohol abuse-father Social History: Patient was born and raised in [facility]. He is currently living in [facility]. He has never been and has no children. He was raised by his biological parents and is the youngest of 5. 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 He denies any significant history of trauma. He denies any history of legal issues. Update: Patient had endorsed recently having been hospitalized at [facility] in late July in an attempt to help with detoxification off of benzodiazepines and alcohol. He reports that he had left and intensive inpatient rehabilitation facility in [place] in early August 2022. His living situation is also changed he is currently staying with a friend near [facility]. Hospital Course He slowly acclimated to the individual, group and milieu therapies provided. A growing theme in his visits seems to be his Klonopin. His last hospitalization he came in left on the same day in the drive for leaving appeared to be Klonopin. He began to leave [facility] at 1 point and the issue of note was Klonopin. 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 We agreed to drop him to 1 mg p.o. 4 times daily from the 2 mg p.o. 3 times daily. He was given a 2-week prescription that was going to be active in 2 weeks as he left with 56 1 mg tablets that would serve him for 4 times daily for the next 2 weeks. Therefore he had a month of medication in his outpatient provider agreed that he would see him and consider dropping it down to 3.5 mg daily otherwise he refused the Inga trol injection reporting that he still wants to drink some and we identified that being an issue like Klonopin is a bad idea. He was also discharged on Celexa 20 mg daily Neurontin 600 mg p.o. twice daily. He was working with the social work team for possible treatment options but was very resistant to the options that were identified. He had modest improvement and he was able to contract for safety outside of the hospital prior to discharge. During the hospitalization, patient had routine laboratory studies which were within normal limits except for few outliers. Additionally there was a general medical evaluation which was also within normal limits and revealed no new acute processes. At the time of discharge, he denied psychosis or lethality. Mood and anxiety were well managed. Patient endorsed a plan to avoid all drugs of abuse and follow-up with the aftercare recommendations of the treatment team. Patient was evaluated and deemed to be absent credible lethality, and achieved a maximum benefit from an inpatient hospitalization, so was discharged. Meds NPU Home Medications Medication Instructions Recorded Confirmed Last Taken Type aspirin 81 mg tablet,delayed 81 mg PO QAM 10/29/22 08/13/23 08/06/23 History release clonidine HCl 0.1 mg tablet 0.1 mg PO TID PRN Blood Pressure 07/23/23 08/13/23 08/12/23 History atorvastatin 40 mg tablet 40 mg PO BEDTIME 30 days #30 tabs 07/28/23 08/13/23 08/05/23 Rx lisinopril 20 mg tablet 20 mg PO DAILY 30 days #30 tabs 07/28/23 08/13/2307/28 Rx nitroglycerin 0.4 mg sublingual 0.4 mg sublingual Q5M PRN Chest 07/28/23 08/13/23 Unknown Rx tablet (Nitrostat) Pain #7 tabs pantoprazole 40 mg tablet,delayed 40 mg PO DAILY 30 days #30 tabs 07/28/23 08/13/23 08/06/23 Rx release propranolol 20 mg tablet 20 mg PO TID 30 days #90 tabs 07/28/23 08/13/23 08/12/23 Rx quetiapine 300 mg tablet 300 mg PO BEDTIME 30 days #30 tabs 07/28/23 08/13/23 08/12/23 Rx escitalopram oxalate 20 mg tablet 20 mg PO QAM 08/06/23 08/13/23 08/06/23 History gabapentin 600 mg tablet 600 mg PO BID 08/06/23 08/13/23 08/06/23 History hydrochlorothiazide 25 mg tablet 25 mg PO QAM 08/06/23 08/13/23 08/12/23 History trazodone 50 mg tablet 50 mg PO BEDTIME PRN Insomnia 08/06/23 08/13/23 Unknown History clopidogrel 75 mg tablet 75 mg PO DAILY #30 tabs 08/09/23 08/13/23 Unknown Rx clonazepam 1 mg tablet 1 mg PO BID 08/13/23 08/13/23 08/12/23 History atorvastatin 40 mg tablet 40 mg PO BEDTIME 08/14/23 08/14/23 Unknown History clonazepam 1 mg tablet 1 mg PO 0900,1400 08/14/23 08/14/23 Unknown History escitalopram oxalate 20 mg tablet 20 mg PO DAILY 08/14/23 08/14/23 Unknown History gabapentin 600 mg tablet 600 mg PO BID 08/14/23 08/14/23 Unknown History hydrochlorothiazide 25 mg tablet 25 mg PO DAILY 08/14/23 08/14/23 Unknown History lisinopril 20 mg tablet 20 mg PO DAILY 08/14/23 08/14/23 Unknown History pantoprazole 40 mg tablet,delayed 40 mg PO DAILY 08/14/23 08/14/23 Unknown History release propranolol 20 mg tablet 20 mg PO TID 08/14/23 08/14/23 Unknown History quetiapine 300 mg tablet 300 mg PO BEDTIME 08/14/23 08/14/23 Unknown History Allergies Allergy/AdvReac Type Severity Reaction Status Date / Time codeine Allergy ALGY-Hives Verified 08/13/23 14:31 ketorolac [From Toradol] Allergy ALGY-Hives Verified 08/13/23 14:31 PFSH NPU PFSH: Medical History Benzodiazepine abuse 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 Chronic low back pain Chronic pain in left shoulder Had pain present when seen 12/2021 on his first visit and thought he might have a rotator cuff tear then Cigarette smoker Claudication in peripheral vascular disease Since 2017 with walking 100 yards or less Dental caries associated with enamel hypomineralization Depression Erectile dysfunction Generalized anxiety disorder with panic attacks Hx of carotid stenosis Hypertension Prediabetes Psychiatric care Torn rotator cuff Social History Smoking and tobacco/nicotine status: current every day tobacco/nicotine user cigarettes Packs smoked per day: 2 Alcohol intake: current Alcohol intake frequency: few times a week Substance/Drug Use: never Marital status: Single Number of children: 0 Current occupational status: employed Mental Status Exam MSE Comments: This is an obese white male in hospital scrubs with adequate grooming and fair eye contact. There is no evidence of any abnormal involuntary motor movements tics or tremors appreciated. He was cooperative with exam in mild distress. Speech was normal in rate, rhythm and prosody. Mood reported as better than yesterday, his affect remained flat. Thought process was linear and organized. Thought content: Patient denied suicidal or homicidal ideation, there were no delusions reported or noted, He denied any auditory or visual hallucinations. Attention and concentration appeared intact and memory appeared mostly reliable but none were formally tested. He is alert and oriented x3. Insight, judgment and impulse control are limited versus impaired. Vitals/I&O/Wt Last Vital Signs Temp 98.3 F 08/13/23 20:10 Pulse 86 08/13/23 20:10 Resp 20 H 08/13/23 20:10 BP 125/84 08/13/23 20:10 Pulse Ox 97 08/13/23 20:10 O2 Del Method Room Air 08/13/23 20:10 Weight last 48 hrs Weight 108.862 kg Data NPU 08/13/23 14:20 08/13/23 14:20 A&P Assessment and plan (1) Major depressive disorder: (2) Panic disorder: (3) Alcohol dependence: (4) Generalized anxiety disorder with panic attacks: Plan Patient is a 43-year-old white male admitted with homicidal ideation, worsening anxiety and concern for malingering, along with alcohol dependence currently reporting he has followed a benzodiazepine tapering protocol we gave in his early July discharge. 1. Continue current medication except decrease Klonopin to 1 mg 4 times pancho ly except 0.5 for 1 of those doses for 3.5 mg daily total for the next 2 weeks including outpatient after discharge 2.? Encourage individual, group and milieu therapy 3.? Continue q-15 minute check for safety 4.? Recommend sober living treatment at the highest level of care to which the patient is willing to commit. Involuntary Hold Information 96 Hour Hold: 96 Hour Involuntary Admission: No Attestations NPU Medical Necessity Statement*: Inpatient hospitalization is medically necessary and clinically appropriate intervention at this time. We will monitor medications and make changes as indicated. Patient will be in the hospital for over 2 midnights. His likely length of stay is 3 to 5 days. Coding Level of Care Code Acute Code for [facility] Fwd Diagnoses Major depressive disorder F32.9 Panic disorder F41.0 Alcohol dependence F10.20 Generalized anxiety disorder with panic attacks F41.1; F41.0
[2023-08-14] MEDS: diphenhydrAMINE 50 mg Capsule PO (07:40)
[2023-08-14] MEDS: escitalopram 10 mg Tablet 20 MG PO (08:52)
[2023-08-14] MEDS: propranolol 20 mg Tablet PO ×3 (08:52→20:20)
[2023-08-14] MEDS: lisinopril 20 mg Tablet PO (08:52)
[2023-08-14] MEDS: gabapentin 300 mg Capsule 600 MG PO ×2 (08:52→18:08)
[2023-08-14] MEDS: CLONazepam 1 mg Tablet PO ×3 (08:52→20:20)
[2023-08-14] MEDS: hydroCHLOROthiazide 25 mg Tablet PO (08:52)
[2023-08-14] MEDS: pantoprazole DR 40 mg Tablet PO (08:52)
[2023-08-14] MEDS: nicotine 21 mg Patch 1 PATCH TRANSDERMA (09:09)
[2023-08-14 12:40] VITALS: BP 124/88; PULSE 81; RESP 16; TEMP 36.3; O2SAT 97
[2023-08-14] MEDS: acetaminophen 325 mg Tablet 650 MG PO (13:35)
[2023-08-14] MEDS: clopidogrel 75 mg Tablet PO (14:40)
[2023-08-14] MEDS: aspirin 81 mg EC Tablet PO (14:40)
[2023-08-14] MEDS: ibuprofen 600 mg Tablet PO (14:40)
[2023-08-14] MEDS: CLONazepam 0.5 mg Tablet PO (18:08)
[2023-08-14 19:49] VITALS: BP 102/69; PULSE 79; RESP 14; TEMP 36.9; O2SAT 98
[2023-08-14] MEDS: quetiapine 300 mg Tablet PO (20:20)
[2023-08-15 06:00] VITALS: BP 98/65; PULSE 74; RESP 16; TEMP 36.6; O2SAT 96
[2023-08-15] MEDS: acetaminophen 325 mg Tablet 650 MG PO (08:10)
[2023-08-15] MEDS: pantoprazole DR 40 mg Tablet PO (08:10)
[2023-08-15] MEDS: aspirin 81 mg EC Tablet PO (08:10)
[2023-08-15] MEDS: gabapentin 300 mg Capsule 600 MG PO (08:10)
[2023-08-15] MEDS: propranolol 20 mg Tablet PO ×3 (08:11→21:01)
[2023-08-15] MEDS: lisinopril 20 mg Tablet PO (08:11)
[2023-08-15] MEDS: escitalopram 10 mg Tablet 20 MG PO (08:11)
[2023-08-15] MEDS: clopidogrel 75 mg Tablet PO (08:11)
[2023-08-15] MEDS: hydroCHLOROthiazide 25 mg Tablet PO (08:11)
[2023-08-15] MEDS: CLONazepam 1 mg Tablet PO ×3 (08:11→21:02)
--- NOTE | 2023-08-15 08:19 | PC.NURSE ---
Patient denies si/hi and avh. Patient endorses anxiety and chronic back pain at an 8/10. He does say he slept much better last night than the night before.
[2023-08-15 13:34] VITALS: BP 100/63; PULSE 71; RESP 16; TEMP 36.8; O2SAT 97
--- NOTE | 2023-08-15 15:37 | W.PM.NPUPNS ---
Subjective NPU Subjective: 43-year-old male admitted with homicidal ideation with a history of depression and polysubstance abuse. Patient had reported no cravings for alcohol. He had reported desire to move to [place] and stated that he would harm someone if he were to go home currently. Patient had isolated himself on the milieu. He reported no side effects from his medication. He had reported considerable back pain and had requested tramadol to manage his pain. He reported no increased anxiety from the reduction in Klonopin currently. Mental Status Exam MSE Comments: This is an obese white male in hospital scrubs with adequate grooming and fair eye contact. There is no evidence of any abnormal involuntary motor movements tics or tremors appreciated. He was cooperative with exam in mild distress. Speech was normal in rate, rhythm and prosody. Mood described as okay. His affect was restricted in range. Thought process was linear and organized. Thought content: Patient denied suicidal ideation and endorsed vague homicidal ideation. There were no delusions reported or noted, He denied any auditory or visual hallucinations. Attention and concentration appeared intact and memory appeared mostly reliable but none were formally tested. He is alert and oriented x3. Insight and judgment are poor and impulse control is limited. Vitals/I&O/Wt Last Vital Signs Temp 98.3 F 08/15/23 13:34 Pulse 71 08/15/23 13:34 Resp 16 08/15/23 13:34 BP 100/63 08/15/23 13:34 Pulse Ox 97 08/15/23 13:34 O2 Del Method Room Air 08/15/23 06:00 Weight last 48 hrs Weight 109.316 kg Weight 109.316 kg Data NPU 08/13/23 14:20 08/13/23 14:20 A&P Assessment and plan (1) Major depressive disorder: (2) Panic disorder: (3) Alcohol dependence: (4) Generalized anxiety disorder with panic attacks: Plan Patient is a 43-year-old white male admitted with homicidal ideation, worsening anxiety and concern for malingering, along with alcohol dependence currently reporting he has followed a benzodiazepine tapering protocol we gave in his early July discharge. 1. Continue Klonopin 3.5mg/day, lexapro 20mg daily, reduce Gabapentin to 300mg bid per patient request. 2.? Encourage individual, group and milieu therapy 3.? Continue q-15 minute check for safety 4.? Recommend sober living treatment at the highest level of care to which the patient is willing to commit. Involuntary Hold Information 96 Hour Hold: 96 Hour Involuntary Admission: No Attestations NPU Medical Necessity Statement*: Inpatient hospitalization is medically necessary and clinically appropriate intervention at this time. We will monitor medications and make changes as indicated. His likely length of stay is 3 to 5 days. Coding Level of Care Code Acute Code for g Fwd Diagnoses Major depressive disorder F32.9 Panic disorder F41.0 Alcohol dependence F10.20 Generalized anxiety disorder with panic attacks F41.1; F41.0
[2023-08-15] MEDS: gabapentin 300 mg Capsule PO (17:07)
[2023-08-15] MEDS: CLONazepam 0.5 mg Tablet PO (17:07)
[2023-08-15] MEDS: nicotine 21 mg Patch 1 PATCH TRANSDERMA (17:10)
[2023-08-15 20:09] VITALS: BP 101/65; PULSE 90; RESP 16; TEMP 36.7; O2SAT 96
[2023-08-15] MEDS: atorvastatin 40 mg Tablet PO (21:01)
[2023-08-15] MEDS: quetiapine 300 mg Tablet PO (21:01)
[2023-08-16 06:00] VITALS: BP 105/66; PULSE 68; RESP 18; O2SAT 94
[2023-08-16] MEDS: clopidogrel 75 mg Tablet PO (08:23)
[2023-08-16] MEDS: lisinopril 20 mg Tablet PO (08:23)
[2023-08-16] MEDS: CLONazepam 1 mg Tablet PO ×3 (08:23→20:15)
[2023-08-16] MEDS: gabapentin 300 mg Capsule PO ×2 (08:24→18:25)
[2023-08-16] MEDS: aspirin 81 mg EC Tablet PO (08:24)
[2023-08-16] MEDS: escitalopram 10 mg Tablet 20 MG PO (08:24)
[2023-08-16] MEDS: propranolol 20 mg Tablet PO ×3 (08:24→20:24)
[2023-08-16] MEDS: pantoprazole DR 40 mg Tablet PO (08:24)
[2023-08-16] MEDS: hydroCHLOROthiazide 25 mg Tablet PO (08:24)
[2023-08-16] MEDS: acetaminophen 325 mg Tablet 650 MG PO (12:48)
[2023-08-16] MEDS: nicotine 21 mg Patch 1 PATCH TRANSDERMA (12:49)
[2023-08-16 14:00] VITALS: BP 116/80; PULSE 78; RESP 20; TEMP 36.4; O2SAT 95
[2023-08-16] MEDS: CLONazepam 0.5 mg Tablet PO (16:41)
--- NOTE | 2023-08-16 19:18 | P.NPUPN_ITS ---
Subjective NPU Subjective: 43-year-old male admitted with homicidal ideation with a history of depression and polysubstance abuse. The patient had expressed frustration stating that he was uncertain as to how to manage his anger. He had reported having some homicidal thoughts towards the methamphetamine drug dealers while he was homeless. The patient had reported continued problems with anxiety and reported that the reduction in Klonopin to 3-1/2 mg daily had not given him any side effects currently. He had expressed desire to consider placement in a mcc near [place]. He had been somewhat isolative on the milieu but was able to attend groups. Mental Status Exam MSE Comments: This is an obese white male in hospital scrubs with adequate grooming and fair eye contact. There is no evidence of any abnormal involuntary motor movements tics or tremors appreciated. He was cooperative with exam in mild distress. Speech was normal in rate, rhythm and prosody. Mood described as frustrated. His affect was restricted in range. Thought process was linear and organized. Thought content: Patient denied suicidal ideation and endorsed homicidal ideation. There were no delusions reported or noted, He denied any auditory or visual hallucinations. Attention and concentration appeared intact and memory appeared mostly reliable but none were formally tested. He is alert and oriented x3. Insight and judgment are poor and impulse control is limited. Vitals/I&O/Wt Last Vital Signs Temp 97.5 F L 08/16/23 14:00 Pulse 78 08/16/23 14:00 Resp 20 H 08/16/23 14:00 BP 116/80 08/16/23 14:00 Pulse Ox 95 08/16/23 14:00 O2 Del Method Room Air 08/16/23 14:00 Weight last 48 hrs Weight 109.316 kg Weight 109.316 kg Data NPU 08/13/23 14:20 08/13/23 14:20 A&P Assessment and plan (1) Major depressive disorder: (2) Panic disorder: (3) Alcohol dependence: (4) Generalized anxiety disorder with panic attacks: Plan Patient is a 43-year-old white male admitted with homicidal ideation, worsening anxiety and concern for malingering, along with alcohol dependence currently reporting he has followed a benzodiazepine tapering protocol we gave in his early July discharge. 1. Continue Klonopin 3.5mg/day, lexapro 20mg daily, reduced Gabapentin to 300mg bid per patient request. 2.? Encourage individual, group and milieu therapy 3.? Continue q-15 minute check for safety 4.? Recommend sober living treatment at the highest level of care to which the patient is willing to commit. Involuntary Hold Information 96 Hour Hold: 96 Hour Involuntary Admission: No Attestations NPU Medical Necessity Statement*: Inpatient hospitalization is medically necessary and clinically appropriate intervention at this time. We will monitor medications and make changes as indicated. His likely length of stay is 3 to 5 days. Coding Level of Care Code Acute Code for [facility] Fwd Diagnoses Major depressive disorder F32.9 Panic disorder F41.0 Alcohol dependence F10.20 Generalized anxiety disorder with panic attacks F41.1; F41.0
[2023-08-16] MEDS: ibuprofen 600 mg Tablet PO (20:13)
[2023-08-16] MEDS: quetiapine 300 mg Tablet PO (20:14)
[2023-08-16 20:15] VITALS: BP 122/75; PULSE 82; RESP 18; TEMP 36.7; O2SAT 97
--- NOTE | 2023-08-16 20:46 | PC.NURSE ---
IN ROOM RESTING AROUSES TO VOICE. PT DENIES SI/HI AND AVH AT THIS TIME. PT RATES DEPRESSION 0/10 AND ANXIETY 7/10. PT EDUCATED HE WOULD GET HIS SCHEDULED CLONAZAPAM AT BEDTIME. PT REPORTS BACK AND STOMACH PAIN 9/10 ZOFRAN 4 MG WAS GIVEN ORDERED ALONG WITH IBUPROFEN 600 MG FOR PAIN. PT REFUSED ATORVASTATIN DUE TO IT HURTING HIS MUSCLES, NOTIFIED NO NEW ORDERS. PT IS REQUESTING TRAMADOL, DR. CASPER NOTIFIED, NO NEW ORDERS WERE RECEIVED. ALL QUESTIONS ANSWERED AND SUPPORT WAS VOICED.
[2023-08-17 06:00] VITALS: BP 107/70; PULSE 71; RESP 16; TEMP 36.6; O2SAT 93
[2023-08-17] MEDS: aspirin 81 mg EC Tablet PO (08:58)
[2023-08-17] MEDS: nicotine 21 mg Patch 1 PATCH TRANSDERMA (08:58)
[2023-08-17] MEDS: clopidogrel 75 mg Tablet PO (08:59)
[2023-08-17] MEDS: pantoprazole DR 40 mg Tablet PO (08:59)
[2023-08-17] MEDS: CLONazepam 1 mg Tablet PO ×3 (08:59→20:47)
[2023-08-17] MEDS: gabapentin 300 mg Capsule PO (08:59)
[2023-08-17] MEDS: hydroCHLOROthiazide 25 mg Tablet PO (08:59)
[2023-08-17] MEDS: propranolol 20 mg Tablet PO ×3 (08:59→20:47)
[2023-08-17] MEDS: lisinopril 20 mg Tablet PO (08:59)
[2023-08-17] MEDS: escitalopram 10 mg Tablet 20 MG PO (08:59)
--- NOTE | 2023-08-17 09:05 | PC.NURSE ---
PT CURRENTLY DENIES SI/HI/AH/VH. PT CURRENTLY ENDORSES ANXIETY RATING IT A 7/10 ON A 0-10 SCALE WHERE 0 IS NONE AND 10 IS THE WORST. PT WAS WILLING AND COOPERATIVE WITH ASSESSMENT AND MEDICATIONS. PT CURRENT NEEDS ARE MET AT THIS TIME.
[2023-08-17 14:00] VITALS: BP 87/53; PULSE 77; RESP 16; TEMP 36.8; O2SAT 95
--- NOTE | 2023-08-17 15:23 | P.NPUPN_ITS ---
Subjective NPU Subjective: 43-year-old male admitted with homicidal ideation with a history of depression and polysubstance abuse. He had reported a history of depressed mood. He had stated that he had desire to go to [place]. He had continued to engage concerns about being homeless and still reported having anger problems associated with his homelessness and reporting continued thoughts of killing the methamphetamine dealers. He continued to report pain issues. He reported no withdrawal symptoms secondary to Klonopin. Mental Status Exam MSE Comments: This is an obese white male in hospital scrubs with adequate grooming and fair eye contact. There is no evidence of any abnormal involuntary motor movements tics or tremors appreciated. He was cooperative with exam in mild distress. Speech was normal in rate, rhythm and prosody. Mood described as struggling His affect was restricted in range and mood congruent. Thought process was linear and organized. Thought content: Patient denied suicidal ideation and endorsed homicidal ideation. There were no delusions reported or noted, He de nied any auditory or visual hallucinations. Attention and concentration appeared intact and memory appeared mostly reliable but none were formally tested. He is alert and oriented x3. Insight and judgment are poor and impulse control is limited. Vitals/I&O/Wt Last Vital Signs Temp 98.3 F 08/17/23 14:00 Pulse 77 08/17/23 14:00 Resp 16 08/17/23 14:00 BP 87/53 08/17/23 14:00 Pulse Ox 95 08/17/23 14:00 O2 Del Method Room Air 08/17/23 14:00 Data NPU 08/13/23 14:20 08/13/23 14:20 A&P Assessment and plan (1) Major depressive disorder: (2) Panic disorder: (3) Alcohol dependence: (4) Generalized anxiety disorder with panic attacks: Plan Patient is a 43-year-old white male admitted with homicidal ideation, worsening anxiety and concern for malingering, along with alcohol dependence currently reporting he has followed a benzodiazepine tapering protocol we gave in his early July discharge. 1. Continue Klonopin 3.5mg/day, lexapro 20mg daily, d/c gabapentin, continue seroquel 300mg at night. 2.? Encourage individual, group and milieu therapy 3.? Continue q-15 minute check for safety 4.? Recommend sober living treatment at the highest level of care to which the patient is willing to commit. Involuntary Hold Information 96 Hour Hold: 96 Hour Involuntary Admission: No Attestations NPU Medical Necessity Statement*: Inpatient hospitalization is medically necessary and clinically appropriate intervention at this time. We will monitor medications and make changes as indicated. His likely length of stay is 3 to 5 days. Coding Level of Care Code Acute Code for [facility] Fwd Diagnoses Major depressive disorder F32.9 Panic disorder F41.0 Alcohol dependence F10.20 Generalized anxiety disorder with panic attacks F41.1; F41.0
[2023-08-17] MEDS: CLONazepam 0.5 mg Tablet PO (17:04)
[2023-08-17] MEDS: ondansetron 4 MG Tablet PO (17:05)
[2023-08-17 20:38] VITALS: BP 114/78; PULSE 74; RESP 16; TEMP 36.7; O2SAT 96
[2023-08-17] MEDS: quetiapine 300 mg Tablet PO (20:47)
[2023-08-18 06:00] VITALS: BP 116/68; PULSE 70; RESP 17; O2SAT 93
[2023-08-18] MEDS: CLONazepam 1 mg Tablet PO ×2 (08:08→12:31)
[2023-08-18] MEDS: pantoprazole DR 40 mg Tablet PO (08:08)
[2023-08-18] MEDS: escitalopram 10 mg Tablet 20 MG PO (08:08)
[2023-08-18] MEDS: aspirin 81 mg EC Tablet PO (08:08)
[2023-08-18] MEDS: hydroCHLOROthiazide 25 mg Tablet PO (08:08)
[2023-08-18] MEDS: propranolol 20 mg Tablet PO ×2 (08:08→14:29)
[2023-08-18] MEDS: lisinopril 20 mg Tablet PO (08:08)
[2023-08-18] MEDS: clopidogrel 75 mg Tablet PO (08:09)
[2023-08-18] MEDS: nicotine 21 mg Patch 1 PATCH TRANSDERMA (12:31)
[2023-08-18 14:00] VITALS: BP 126/83; PULSE 71; RESP 16; TEMP 36.6; O2SAT 97
--- NOTE | 2023-08-18 14:25 | P.NPUDS_ITS ---
Diagnoses at Discharge Discharge Diagnosis (1) Major depressive disorder: Status: Acute (2) Panic disorder: Status: Inactive (3) Alcohol dependence: Status: Acute (4) Generalized anxiety disorder with panic attacks: Status: Acute Reason for Visit Reason for Visit: Homicidal Brief History: History of Present Illness Rudy Crawford is a 43 year old male who presented to the emergency department with the following report: Chief Complaint: Psychiatric Symptoms Stated Complaint: Homicidal Time Seen by Provider: 08/13/23 14:05 Source: patient Mode of arrival: ambulatory Limitations: no limitations History of Present Illness: ? Patient is a 43-year-old male presents to ED today stating he is homicidal towards drug addicts and meth heads .? He states if one more meth head talks to him or knocks on his door then he is going to hurt them. No specific plan. Denies suicidal ideations. No psychosis symptoms. Recently admitted to [facility] earlier this month. Reports being drug free for 8 years. Does have a history of alcohol abuse. ? MD complaint: other (homicidal ideation) Onset (ago): day(s) Duration: constant Relieving factors: none Context: significant life stressor Associated psychiatric symptoms: homicidal ideation Associated symptoms: Reports homicidal ideation; Deny auditory hallucinations, visual hallucinations, depression or suicidal ideation Treatments prior to arrival: none He was admitted to the neuropsychiatric unit for definitive treatment of those issues.? He is known to this quality analyst/technical writer through past inpatient hospitalization.? His last psychiatric hospitalization ended 07/30/2023 and an excerpt of that summary is included below for context and the fact that there have been no substantive changes.? It is noteworthy that a week later on 08/06/2023 he was admitted to the medical unit where some cardiac disease was noted and plans for continued follow-up were executed.? He was discharged on 08/12/2023 from that and he returns now reporting being overwhelmed at home secondary to meth heads knocking on his door etc.? He endorsed homicidality towards these individuals and we had a long discussion about the legal implications of him acting out in an aggressive way.? We also had a long discussion about concerns related to nacho ngering as well as concerns that this may have something to do with him not having enough Klonopin available even though he should have extra given the hospitalization.? He categorically denies that this has anything to do with the Klonopin.? We discussed moving forward with a plan to taper the Klonopin by 0.5 mg every 2 weeks such that he will be on 3-1/2 mg total daily for the next 2 weeks.? We discussed this being a short hospitalization and a plan for him to reconsider where he is living if he can get along with the people there. Per his 07/30/2023 [facility] inpatient psychiatric discharge summary: Discharge Diagnosis (1) Major depressive disorder: ? ? ? Status: Acute (2) Panic disorder: ? ? ? Status: Inactive (3) Alcohol dependence: ? ? ? Status: Acute (4) Generalized anxiety disorder with panic attacks: ? ? ? Status: Acute Reason for Visit Reason for Visit: ? psych eval? Brief History: History of Present Illness Rudy Crawford is a 43 year old male recently discharged last month from the neuropsychiatric unit who presented to the emergency room complaining of suicidal ideation and continued depression.? The patient had stated that he had been discharged from [place] yesterday and reports that over the past 4 days his Klonopin had been decreased from 6 mg a day to 2 mg a day within a short period of time.? He reports some irritability and agitation since this reduction.? He had denied having used alcohol for the past few weeks.? He reports that he has been homeless.? He had reported that he had been struggling with panic attacks as well.? Patient had stated that he has been feeling more hopeless and worthless.? He reports sleep continuity disruption.? He had reported that he was hopeful of finding a custodial in the nearby area.? He reports no acute changes otherwise and stated above. Current medications: gabapentin, aspirin, lisinopril, propranolol, quetiapine, trazodone, klonopin Previous discharge summary from [facility] on 05/23/23 History of Present Illness Rudy Crawford is a 43 year old male who presented to the emergency department with the following report: Chief Complaint: Psychiatric Symptoms Stated Complaint: mag Time Seen by Provider: 05/22/23 16:58 History of Present Illness: Presents to the ER with complaints of suicidal ideations.? Patient said the world just coming down around him.? Last week patient lost his job, got really really drunk and decided to check himself into rehab down at [place] spent 3 days they are in when he got out felt that it he need just needed more time to help.? Patient is having bad thoughts of suicide.? Patient was on a bridge today and thought of jumping.? Since patient lost his job and is planning on moving in with his girlfriend and having major life stressors. He was admitted to the neuropsychiatric unit for the definitive treatment of those issues.? Patient presented today reporting that things are very stressed he reports that his anxiety is out of control and that he lost his job.? He reports that he is temporarily homeless and that he is moving into a new place next week with some woman that he has a relationship with.? He endorsed having suicidal thoughts but reports those have diminished.? He endorses a history of having anxiety helps with Klonopin.? He reports that his anxiety gets so [id number] that he has chest pains and feels like he might have a heart attack.? He endorses maybe having a cardiac history.? We reviewed his previous hospitalization from August of last year and an excerpt of that stay is included below for context and his report of limited/no substantive changes since that today.? Outside of his current living arrangement issues.? We discussed possible medications for his anxiety and he was very focused on not changing the Klonopin which we discussed that 2 mg p.o. 3 times daily is a very high dose.? He reports it has been very effective but cannot explain why he was always anxious if it is very effective.? He is not interested in any medications like SSRIs etc. reporting he knows what works.? He had initially talked about leaving AMA but then reported he would stay but he seemed quite ambivalent about this stay overall. Per his 09/25/2022 [facility] inpatient psychiatric discharge summary: Discharge Diagnosis (1) Panic disorder: ? ? ? Status: Acute (2) Alcohol dependence: ? ? ? Status: Acute (3) Benzodiazepine abuse: ? ? ? Status: Acute Reason for Visit Reason for Visit: ? Suicidal ideation? Brief History: History of Present Illness Rudy Crawford is a 42 year old male who had presented to his primary care nurse on 09/22/2020 2 in the morning requesting treatment for alcohol withdrawal.? He reports that he wishes to stop his consumption of alcohol and stated that he was having withdrawal symptoms as he had reported having last consumed alcohol on the night of 09/21/2022.? He had reported having consumed a gallon of fireball whiskey and reports having consumed a case of beer on a daily basis.? He reports his consumption of alcohol has been increasing since he was taken abruptly off of his prescribed Klonopin of 2 mg/day.? He had reported a previous history of panic attacks and considerable anxiety that had been worsening his cardiac problems.? He states that he had not been prescribed Klonopin for over a month.? He endorses a past history of withdrawal seizures although it is uncertain as to whether that was associated with withdrawal from benzodiazepines or alcohol.? He had acknowledged no depression but states that his panic attacks have been more frequent over the past few months.? He reports an extended history of chest pain shortness of breath difficulty swallowing and feeling like he is going to .? He reports that these panic attacks occur without triggers frequently. Current medications: gabapentin 300mg bid, hydrochlorothiazide/lisinopril: 25mg/20mg, hydroxyzine 25mg bid Previous [facility] on 06/[facility]/2022 at [facility]: Rudy Crawford is a 42 year old single white male with a history of panic attacks coronary artery disease and hypertension who reports to the emergency department with suicidal ideation with a plan to jump off of a bridge.? He had reported that he had been feeling more depressed and reported uncontrolled anxiety over the past 3 months since he had ran out of his Klonopin 1 mg twice a day.? He had reported that he has had chronic panic attacks for many years with unknown triggered panic attacks lasting approximately 40 minutes with associated chest pain shortness of breath numbing and tingling in his fingers and difficulty with breathing.? He reports that his panic attacks have led him to the emergency department multiple times with complaints of chest pain.? He reports that he had a heart attack a few years ago and he has had these panic attacks since that time.? The patient reports being burdened by anxiety over the past few months.? He reports that he had been unable to receive his Klonopin in [place], [place] where he had moved.? He reports that he had recently moved back to the area and had not been able to see his primary care physician yet to get back on his Klonopin.? The patient had reported diminished energy low motivation and dep ressed mood for the past month.? He had endorsed having suicidal thoughts.? He denied any psychotic symptoms.? He denied any history of manic symptoms.? He had reported a long history of chronic worry since his heart attack occurred. Past psychiatric history: Patient has a history of 1 inpatient hospitalization 2 years ago for suicidal ideation at [facility] in [facility].? He had reported no history of psychotherapy but reports a history of having been treated for panic attacks and depression with medication trials on Lexapro and xanax.? He also reported a history of having been treated for opioid abuse with a history of having been in methadone clinic for a few years having last used methadone 6 years ago. Medical history: Chronic lower back pain peripheral vascular disease with cla udication history of carotid stenosis history of hypertension, HTN Surgical history he has a history of placement of stent in the coronary artery he has a history of repair of a torn rotator cuff Allergies: Toradol Medications: Klonopin 1 mg twice a day aspirin 81 mg in the morning clonidine 0.1 mg twice a day nitroglycerin as needed Drug and alcohol history: He reports having begun use of opiates at the age of [age].? He had reported last use of opiates for treating pain few days ago.? He had reported a past history of methadone treatment but reports no substance abuse inpatient or rehabilitation in the past.? He had reported a past history of alcohol abuse but reports that he has not been drinking recently.? He denies any history of benzodiazepine misuse. Family psychiatric history: alcohol abuse-father Social History: Patient was born and raised in [place].? He is currently living in [facility] [place] [facility].? He has never been and has no children.? He was raised by his biological parents and is the youngest of 5.? 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 He denies any significant history of trauma.? He denies any history of legal i ssues. Update: Patient had endorsed recently having been hospitalized at [facility] in late July in an attempt to help with detoxification off of benzodiazepines and alcohol.? He reports that he had left and intensive inpatient rehabilitation facility in [place] in early August 2022.? His living situation is also changed he is currently staying with a friend near [facility]. Hospital Course He slowly acclimated to the individual, group and milieu therapies provided.? A growing theme in his visits seems to be his Klonopin.? His last hospitalization he came in left on the same day in the drive for leaving appeared to be Klonopin.? He began to leave [facility] at 1 point and the issue of note was Klonopin.? Prior to discharge this quality analyst/technical writer reached out to his current prescriber who identified that he would like him to be on the lower dose but seemed very hesitant to be the uke driver of that change.? We agreed to drop him to 1 mg p.o. 4 times daily from the 2 mg p.o. 3 times daily.? He was given a 2-week prescription that was going to be active in 2 weeks as he left with 56 1 mg tablets that would serve him for 4 times daily for the next 2 weeks.? Therefore he had a month of medication in his outpatient provider agreed that he would see him and consider dropping it down to 3.5 mg daily otherwise he refused the Vivitrol injection reporting that he still wants to drink some and we identified that being an issue like Klonopin is a bad idea.? He was also discharged on Celexa 20 mg daily Neurontin 600 mg p.o. twice daily.? He was working with the social work team for possible treatment options but was very resistant to the options that were identified.? He had modest improvement and he was able to contract for safety outside of the hospital prior to discharge.? During the hospitalization, patient had routine laboratory studies which were within normal limits except for few outliers.? Additionally there was a general medical evaluation which was also within normal limits and revealed no new acute processes. ?At the time of discharge, he denied psychosis or lethality.? Mood and anxiety were well managed.? Patient endorsed a plan to avoid all drugs of abuse and fol low-up with the aftercare recommendations of the treatment team.? Patient was evaluated and deemed to be absent credible lethality, and achieved a maximum benefit from an inpatient hospitalization, so was discharged. Hospital Course Hospital Course During the hospitalization, the patient had routine laboratory studies which were within normal limits except for a few outliers.? Additionally, there was a general medical evaluation which was also within normal limits and revealed no new acute processes.? At the time of discharge, lethality was denied and psychosis was resolving.? Mood and anxiety were well managed.? The patient endorsed a plan to avoid all drugs of abuse and follow up with the aftercare recommendations of the treatment team.? The patient was evaluated and deemed to be absent credible lethality and had achieved the maximum benefit from an inpatient hospitalization, and so was discharged.? It was strongly encouraged that the patient be reduced on Klonopin by only .5mg every month to avoid unnecessary dysphoria with excessively rapid reduction of this medication. Involuntary Hold Information 96 Hour Hold: 96 Hour Involuntary Admission: No Mental Status Exam MSE Comments: This is an obese white male in hospital scrubs with adequate grooming and fair eye contact. There is no evidence of any abnormal involuntary motor movements tics or tremors appreciated. He was cooperative with exam in no acute distress. Speech was normal in rate, rhythm and prosody. Mood described as better. His affect was brighter on discharge. Thought process was linear and organized. Thought content: Patient denied suicidal ideation and endorsed homicidal ideation. There were no delusions reported or noted, He denied any auditory or visual hallucinations. Attention and concentration appeared intact and memory appeared mostly reliable but none were formally tested. He is alert and oriented x3. Insight was improving and judgment are fair and impulse control is limited. Discharge Data Studies Completed and Pending: Laboratory Results WBC 10.83 10^3/uL (3. 29-11.43) 08/13/23 14:20 RBC 5.96 10^6/uL (3.8 5-5.65) H 08/13/23 14:20 Hgb 17.90 g/dL (11.27 -16.99) H 08/13/23 14:20 Hct 53.0 % (37-53) 08/13/23 14:20 MCV 88.9 fl (82-101) 08/13/23 14:20 MCH 30.0 pg (27-33) 08/13/23 14:20 MCHC 33.8 g/dL (30-55) 08/13/23 14:20 RDW 13.0 % (12.1-15.1 ) 08/13/23 14:20 Plt Count 380 10^3/cmm (157 -399) 08/13/23 14:20 MPV 8.2 fL (7.4-10.4) 08/13/23 14:20 Neut % (Auto) 56.1 % 08/13/23 14:20 Lymph % (Auto) 34.0 % 08/13/23 14:20 Mesa % (Auto) 7.7 % 08/13/23 14:20 Eos % (Auto) 1.0 % 08/13/23 14:20 Baso % (Auto) 0.6 % 08/13/23 14:20 Neut # (Auto) 6.08 10^3/uL (1.8 -7.7) 08/13/23 14:20 Lymph # (Auto) 3.7 10^3/uL (0.8- 4.8) 08/13/23 14:20 Mesa # (Auto) 0.8 10^3/uL (0.2- 0.9) 08/13/23 14:20 Eos # (Auto) 0.1 10^3/uL (0.0- 0.8) 08/13/23 14:20 Baso # (Auto) 0.1 10^3/uL (0.0- 0.1) 08/13/23 14:20 Nucleated RBC % (a uto) 0 % 08/13/23 14:20 Nucleated RBCs # 0.0 /100WBC 08/13/23 14:20 Sodium 140 mmol/L (136-1 45) 08/13/23 14:20 Potassium 4.0 mmol/L (3.5-5 .1) 08/13/23 14:20 Chloride 100 mmol/L (98-10 7) 08/13/23 14:20 Carbon Dioxide 23 mmol/L (22-29) 08/13/23 14:20 Anion Gap 21.0 (5-19) H 08/13/23 14:20 BUN 14 mg/dL (6-20) 08/13/23 14:20 Creatinine 0.9 mg/dL (0.7-1. 2) 08/13/23 14:20 GFR Calculation 91.7 mL/min (90-1 30) 08/13/23 14:20 Glucose 155 mg/dL (65-115 ) H 08/13/23 14:20 Calculated Osmolal ity 294 mOsm/kg (285- 295) 08/13/23 14:20 Calcium 10.7 mg/dL (8.5-1 0.5) H 08/13/23 14:20 Total Bilirubin 1.0 mg/dL (0.15-1 .2) 08/13/23 14:20 AST 38 U/L (0-40) 08/13/23 14:20 ALT 58 U/L (0-41) H 08/13/23 14:20 Alkaline Phosphata se 91 U/L (40-130) 08/13/23 14:20 Total Protein 8.6 g/dL (6.6-8.7 ) 08/13/23 14:20 Albumin 4.8 g/dL (3.5-5.2 ) 08/13/23 14:20 Globulin 3.8 g/dL (1.3-4.6 ) 08/13/23 14:20 Salicylates < 0.3 mg/dL (3-10 ) L 08/13/23 14:20 Urine Opiates Scre en Negative ng/mL (N egative) 08/13/23 15:03 Acetaminophen < 5.0 ug/mL (10-3 0) L 08/13/23 14:20 Ur Barbiturates Sc reen Negative ng/mL (N egative) 08/13/23 15:03 Ur Phencyclidine S crn Negative ng/mL (N egative) 08/13/23 15:03 Ur Amphetamines Sc reen Negative ng/mL (N egative) 08/13/23 15:03 U Benzodiazepines Scrn Negative ng/mL (N egative) 08/13/23 15:03 Urine Cocaine Scre en Negative ng/mL (N egative) 08/13/23 15:03 U Marijuana (THC) Screen Negative ng/mL (N egative) 08/13/23 15:03 Ethyl Alcohol < 10 mg/dL (0-10) 08/13/23 14:20 Vitals: Last Vital Signs Temp 98.1 F 08/17/23 20:38 Pulse 70 08/18/23 06:00 Resp 17 08/18/23 06:00 BP 116/68 08/18/23 06:00 Pulse Ox 93 08/18/23 06:00 O2 Del Method Room Air 08/18/23 06:00 Discharge Plan Discharge Patient Disposition: Home Condition: Stable Prescriptions: New Enteric Coated Aspirin 81 mg tablet,delayed release (DR/EC) 81 mg PO DAILY Qty: 30 1RF atorvastatin 40 mg Tablet 40 mg PO BEDTIME 30 Days Qty: 30 1RF clopidogrel 75 mg Tablet 75 mg PO DAILY 30 Days Qty: 30 1RF escitalopram oxalate 10 mg Tablet 20 mg PO DAILY 30 Days Qty: 60 1RF hydrochlorothiazide 25 mg Tablet 25 mg PO DAILY 30 Days Qty: 30 1RF lisinopril 20 mg Tablet 20 mg PO DAILY 30 Days Qty: 30 1RF pantoprazole 40 mg Tablet,Delayed Release (Dr/Ec) 40 mg PO DAILY 30 Days Qty: 30 1RF nitroglycerin 0.4 mg Tablet, Sublingual 0.4 mg sublingual Q5M PRN (Reason: Chest Pain) 30 Days Qty: 30 1RF propranolol 20 mg Tablet 20 mg PO TID 30 Days Qty: 90 1RF quetiapine 300 mg Tablet 300 mg PO BEDTIME 30 Days Qty: 30 1RF clonazepam 0.5 mg Tablet 0.5 mg PO 1700 30 Days Qty: 30 0RF clonazepam 1 mg Tablet 1 mg PO 0900,1300,2100 30 Days Qty: 90 0RF Discontinued aspirin 81 mg tablet,delayed release (DR/EC) 81 mg PO QAM clonidine HCl 0.1 mg tablet 0.1 mg PO TID PRN (Reason: Blood Pressure) quetiapine 300 mg Tablet 300 mg PO BEDTIME 30 Days Qty: 30 1RF propranolol 20 mg Tablet 20 mg PO TID 30 Days Qty: 90 1RF Hold Instructions: see pcp pantoprazole 40 mg Tablet,Delayed Release (Dr/Ec) 40 mg PO DAILY 30 Days Qty: 30 1RF lisinopril 20 mg Tablet 20 mg PO DAILY 30 Days Qty: 30 1RF atorvastatin 40 mg Tablet 40 mg PO BEDTIME 30 Days Qty: 30 1RF nitroglycerin [Nitrostat] 0.4 mg Tablet, Sublingual 0.4 mg SUBLINGUAL Q5M PRN (Reason: Chest Pain) Qty: 7 1RF Rx Instructions: do not exceed 3 doses per episode gabapentin 600 mg tablet 600 mg PO BID trazodone 50 mg tablet 50 mg PO BEDTIME PRN (Reason: Insomnia) escitalopram oxalate 20 mg tablet 20 mg PO QAM hydrochlorothiazide 25 mg tablet 25 mg PO QAM clopidogrel 75 mg Tablet 75 mg PO DAILY Qty: 30 0RF clonazepam 1 mg tablet 1 mg PO BID atorvastatin 40 mg tablet 40 mg PO BEDTIME clonazepam 1 mg tablet 1 mg PO 0900,1400 escitalopram oxalate 20 mg tablet 20 mg PO DAILY gabapentin 600 mg tablet 600 mg PO BID hydrochlorothiazide 25 mg tablet 25 mg PO DAILY lisinopril 20 mg tablet 20 mg PO DAILY pantoprazole 40 mg tablet,delayed release (DR/EC) 40 mg PO DAILY propranolol 20 mg tablet 20 mg PO TID quetiapine 300 mg tablet 300 mg PO BEDTIME Discharge Orders: Discharge Order (Routine); Ordered 08/18/23 Ordered By: Keny Andrews Referrals: [facility] [Other] - 08/18/23 Mayra Rodarte, PMHNP [Staff Physician] - 08/23/23 9:45 am (Follow up) Nilesh Hutchinson MD [Primary Care Provider] - Discharge Diet: Usual diet Discharge Activity: Resume usual activity Patient Instructions: Opioid Safety, Pain Management Discharge Attestations [facility] Time Spent in Discharge Care*: less than 30 min Coding Level of Care Code Acute Chg [facility] note Diagnoses Major depressive disorder F32.9 Panic disorder F41.0 Alcohol dependence F10.20 Generalized anxiety disorder with panic attacks F41.1; F41.0
[2023-08-18] MEDS: diphenhydrAMINE 50 mg Capsule PO (14:29)
[2023-08-18] MEDS: CLONazepam 0.5 mg Tablet PO (16:38)
== END 2023-08-18 17:47 | disposition home or self-care (01) | DRG 881 ==
LOC: ER 17:06 → NP 17:18
PROVIDERS: Admitting Provider Psychiatry & Neurology Psychiatry; Emergency Provider Physician Assistant; PCP Family Medicine Adult Medicine; Visit Provider Psychiatry & Neurology Psychiatry
DX: F32.9 Major depressive disorder, single episode, unspecified (principal); R45.851 Suicidal ideations; Z59.01 Sheltered homelessness; R45.850 Homicidal ideations; I73.9 Peripheral vascular disease, unspecified; N52.9 Male erectile dysfunction, unspecified; F41.1 Generalized anxiety disorder; F41.0 Panic disorder [episodic paroxysmal anxiety]; I10 Essential (primary) hypertension; R73.03 Prediabetes; F17.210 Nicotine dependence, cigarettes, uncomplicated; I25.2 Old myocardial infarction; F10.20 Alcohol dependence, uncomplicated; F15.10 Other stimulant abuse, uncomplicated; I25.10 Atherosclerotic heart disease of native coronary artery without angina pectoris; Z95.5 Presence of coronary angioplasty implant and graft; G89.29 Other chronic pain; M54.50 Low back pain, unspecified
CPT/HCPCS: 36415; 80053; 80306; 80307; 85025; 97165; 99285; Q0162; Q0163

== ENCOUNTER 2023-11-10 14:58 | Emergency (ER) | payer BC, MEDICAID, SELFPAY ==
[2023-11-10] VITALS (13 sets, daily range): BP systolic 132–166; BP diastolic 83–102; PULSE 76–83; RESP 18; O2SAT 92–98
--- NOTE | 2023-11-10 15:07 | W.ED.EXTPRO ---
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 Patient was last 2 months has had increasing pain to his right lower leg with claudication symptoms. Short walks aggravate the pain and discomfort. Patient is a tobacco user. Patient has anxiety. Patient has coronary artery disease with ND x 5 years. Review of Systems General: Reports: 10 or more systems reviewed and unremarkable except in HPI and below PFSH ED PFS: Medical History (Updated 11/10/23 @ 16:14 by ISHAN Pendleton) Psychiatric care 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 Prediabetes Erectile dysfunction Chronic pain in left shoulder Had pain present when seen 12/2021 on his first visit and thought he might have a rotator cuff tear then Generalized anxiety disorder with panic attacks Benzodiazepine abuse Dental caries associated with enamel hypomineralization Cigarette smoker Claudication in peripheral vascular disease Since ND 2018 with walking 100 yards or less Chronic low back pain Hx of carotid stenosis Torn rotator cuff Hypertension Depression Social History Smoking and tobacco/nicotine status: current every day tobacco/nicotine user cigarettes Packs smoked per day: 2 Alcohol intake: current Alcohol intake frequency: few times a week Substance/Drug Use: never Marital status: Single Number of children: 0 Current occupational status: employed Physical Exam Const: COMMON NORMALS: alert HENMT: COMMON NORMALS: normocephalic HEAD & SCALP: normocephalic Neck/C-Spine: COMMON NORMALS: full ROM Resp: COMMON NORMALS: normal respiratory effort Cardio: COMMON NORMALS: regular rate and regular rhythm RATE: regular rate RHYTHM: regular rhythm GI: COMMON NORMALS: Soft to palpation and non-tender PALPATION: Yes Soft to palpation Back/Pelvis: COMMON NORMALS: thoracic and lumbar spine normal to inspection Extremity: NARRATIVE EXTREMITY EXAM: No swelling in the lower extremity. Decreased pulse sensation to the left lower extremity. Neuro: SENSORIUM/ORIENTATION: Yes alert Skin: COMMON NORMALS: turgor normal GENERAL SKIN EXAM: turgor normal Course Vital Signs: Vital signs: Vital Signs Pulse Rate 76 11/10/23 15:48 Respiratory Rate 18 11/10/23 15:48 Blood Pressure 132/83 11/10/23 15:48 Pulse Oximetry 97 11/10/23 15:48 Oxygen Delivery Me thod Room Air 11/10/23 15:48 MDM - Extremity (Nontraumatic) Medical Decision Making 43-year-old male patient comes in today for complaints of pain to the left lower leg. 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 Patient has been seen by Dr. Benton at [place] and is supposed to follow-up regarding this abnormality. Patient came in tonight due to inability to get a ride to [place]. Differential diagnosis includes claudication, arterial occlusion, anxiety about health. CBC CMP was unremarkable. Patient does have a occlusion of the femoral artery of the lower leg. I contacted Dr. Benton at [place], he felt the patient could follow-up outpatient and this was not an emergent transfer due to the length of time between CTA and which they are aware of the occlusion. No sores or significant discoloration is noted to the lower leg at this time. Patient be given medication to help his pain and encouraged to follow-up with their office in the morning. I reviewed this with Dr. Dalton who agreed with plan. Lab Data 11/10/23 15:29 11/10/23 15:29 Radiology Impressions Duplex Scan Lower Extremity Artery 11/10/23 15:18 IMPRESSION: 1. Complete arterial occlusion from the distal superficial femoral artery through the dorsalis pedis. Vascular evaluation for leg ischemia is recommended. THIS REPORT CONTAINS FINDINGS THAT MAY BE CRITICAL TO PATIENT CARE. The findings were verbally communicated by telephone with GUMARO Gomez at 3:56 PM UNDERCOLLAR BASTER on 11/10/2023. The findings were acknowledged and understood. Laboratory Results WBC 9.61 10^3/uL (3.29-11.43) 11/10/23: RBC 5.52 10^6/uL (3.85-5.65) 11/10/23 15: Hgb 16.70 g/dL (11.27-16.99) 11/10/23 15: Hct 48.7 % (37-53) 11/10/23: MCV 88.2 fl (82-101) 11/10/23 15: MCH 30.3 pg (27-33) 11/10/23: MCHC 34.3 g/dL (30-55) 11/10/23: RDW 12.1 % (12.1-15.1) 11/10/23: Plt Count 280 10^3/cmm (157-399) 11/10/23 15: MPV 8.0 fL (7.4-10.4) 11/10/23: Neut % (Auto) 55.8 % 11/10/23: Lymph % (Auto) 32.0 % 11/10/23: [place] % (Auto) 9.5 % 11/10/23: Eos % (Auto) 1.4 % 11/10/23: Baso % (Auto) 0.6 % 11/10/23: Neut # (Auto) 5.36 10^3/uL (1.8-7.7) 11/10/23: Lymph # (Auto) 3.1 10^3/uL (0.8-4.8) 11/10/23: [place] # (Auto) 0.9 10^3/uL (0.2-0.9) 11/10/23: Eos # (Auto) 0.1 10^3/uL (0.0-0.8) 11/10/23: Baso # (Auto) 0.1 10^3/uL (0.0-0.1) 11/10/23: Nucleated RBC % (auto) 0 % 11/10/23 Nucleated RBCs # 0.0 /100WBC 11/10/23: PT 13.60 SECONDS (12.1-14.9) 11/10/23: INR 1.01 (0.8-1.2) 11/10/23: APTT 25.7 SECONDS (23.9-36.7) 11/10/23 15: Sodium 133 mmol/L (136-145) L 11/10/23: Potassium 3.5 mmol/L (3.5-5.1) 11/10/23: Chloride 94 mmol/L (98-107) L 11/10/23:29 Carbon Dioxide 24 mmol/L (22-29) 11/10/23 15:29 Anion Gap 18.5 (5-19) 11/10/23 15:29 BUN 14 mg/dL (6-20) 11/10/23 15:29 Creatinine 0.9 mg/dL (0.7-1.2) 11/10/23 15:29 GFR Calculation 91.7 mL/min (90-130) 11/10/23 15:29 Glucose 113 mg/dL (65-115) 11/10/23 15:29 Calculated Osmolality 277 mOsm/kg (285-295) L 11/10/23 15:29 Calcium 9.4 mg/dL (8.5-10.5) 11/10/23 15:29 Total Bilirubin 0.5 mg/dL (0.15-1.2) 11/10/23 15:29 AST 40 U/L (0-40) 11/10/23 15:29 ALT 66 U/L (0-41) H 11/10/23 15:29 Alkaline Phosphatase 83 U/L (40-130) 11/10/23 15:29 Total Protein 7.8 g/dL (6.6-8.7) 11/10/23 15:29 Albumin 4.2 g/dL (3.5-5.2) 11/10/23 15:29 Globulin 3.6 g/dL (1.3-4.6) 11/10/23 15:29 All radiology interpretation(s) finalized by discharge Discharge Plan Discharge Patient Disposition: Home Clinical Impression: Claudication in peripheral vascular disease Condition: Stable Prescriptions: New hydrocodone-acetaminophen 5-325 mg tablet 1 tab PO Q6H PRN (Reason: pain) Qty: 10 0RF No Action clopidogrel 75 mg tablet 75 mg PO DAILY 30 Days Qty: 30 2RF lisinopril-hydrochlorothiazide 20-25 mg tablet 1 tab PO DAILY Qty: 30 5RF quetiapine 300 mg tablet 300 mg PO BEDTIME 30 Days Qty: 30 1RF clonazepam 1 mg tablet 1 mg PO TID PRN (Reason: anxiety) 30 Days Qty: 90 0RF aspirin [Enteric Coated Aspirin] 81 mg tablet,delayed release (DR/EC) 81 mg PO DAILY Qty: 30 1RF nitroglycerin 0.4 mg Tablet, Sublingual 0.4 mg sublingual Q5M PRN (Reason: Chest Pain) 30 Days Qty: 30 1RF gabapentin 600 mg tablet 600 mg PO BID propranolol 20 mg tablet 20 mg PO TID Discharge Orders: Discharge ED (Routine); Ordered 11/10/23 Ordered By: Gumaro Garduno Referrals: Nilesh Hutchinson MD [Primary Care Provider] - Patient Instructions: Opioid Safety, Pain Management Activity Restrictions/Additional Instructions: Follow-up with Dr. Dr. Benton's office in the morning. I have been instructed that they will see you first thing in the morning for further treatment and evaluation of this abnormality. Coding Level of Care Code ED Service Rig Operator for Adam Adair
--- NOTE | 2023-11-10 15:18 | USR_ITS ---
PROCEDURE INFORMATION: Exam: US Duplex Left Lower Extremity Arteries Or Arterial Bypass Grafts Exam date and time: 11/10/2023 3:26 PM Age: 43 years old Clinical indication: Pain; Leg, lower; Left; Additional info: Claudication, femoral aneurysm TECHNIQUE: Imaging protocol: Left Real-time duplex scan of the arteries or arterial bypass grafts of the left lower extremity with 2-D rodriguez scale, color Doppler flow and spectral waveform analysis. Images documented and saved. COMPARISON: CR XR tibia fibula LT 2V [id number] 01/21/2022 7:49 PM FINDINGS: There is complete occlusion of the distal superficial femoral artery, popliteal and infrapopliteal (anterior tibial, posterior tibial, peroneal) arteries. Flow is not detectable in the dorsalis pedis. The common femoral arteries patent with PSV: 52 cm/s. The proximal and mid superficial femoral artery is patent with PSV: 53 cm/s, 40 cm/s, respectively. The visualized left external iliac artery is patent normal waveform. US/[place] [id number] IMPRESSION: 1. Complete arterial occlusion from the distal superficial femoral artery through the dorsalis pedis. Vascular evaluation for leg ischemia is recommended. THIS REPORT CONTAINS FINDINGS THAT MAY BE CRITICAL TO PATIENT CARE. The findings were verbally communicated by telephone with NATALEE Gomez at 3:56 PM HUMAN PERFORMANCE PROFESSOR on 11/10/2023. The findings were acknowledged and understood.
[2023-11-10 15:36] LABS: Basophils # 0.1 10^3/uL (0.0-0.1); Basophils % 0.6 %; Eosinophils # 0.1 10^3/uL (0.0-0.8); Eosinophils % 1.4 %; Hematocrit 48.7 % (37-53); Lymphocytes # 3.1 10^3/uL (0.8-4.8); Mean Corpuscular HGB Conc 34.3 g/dL (30-55); Mean Corpuscular Hemoglobin 30.3 pg (27-33); Mean Corpuscular Volume 88.2 fl (82-101); Monocytes # 0.9 10^3/uL (0.2-0.9); Monocytes % 9.5 %; Neutrophils # 5.36 10^3/uL (1.8-7.7); Neutrophils % 55.8 %; Nucleated Red Blood Cells % 0 %; Platelet Count 280 10^3/cmm (157-399); Red Blood Count 5.52 10^6/uL (3.85-5.65); Red Cell Distribution Width 12.1 % (12.1-15.1); White Blood Count 9.61 10^3/uL (3.29-11.43)
[2023-11-10] MEDS: morphine 4 mg/mL SDV 1 mL IVP (15:45)
[2023-11-10 15:50] LABS: INR 1.01 (0.8-1.2)
[2023-11-10 15:51] LABS: Partial Thromboplastin Time 25.7 SECONDS (23.9-36.7)
[2023-11-10 15:55] LABS: Alanine Aminotransferase 66 U/L (0-41); Albumin Level 4.2 g/dL (3.5-5.2); Alkaline Phosphatase 83 U/L (40-130); Anion Gap 18.5 (5-19); Aspartate Amino Transferase 40 U/L (0-40); Blood Urea Nitrogen 14 mg/dL (6-20); Calcium 9.4 mg/dL (8.5-10.5); Carbon Dioxide 24 mmol/L (22-29); Chloride 94 mmol/L (98-107); Globulin 3.6 g/dL (1.3-4.6); Glomerular Filtration Rate 91.7 mL/min (90-130); Glucose 113 mg/dL (65-115); Osmolality Calculated 277 mOsm/kg (285-295); Potassium 3.5 mmol/L (3.5-5.1); Sodium 133 mmol/L (136-145); Total Bilirubin 0.5 mg/dL (0.15-1.2); Total Protein 7.8 g/dL (6.6-8.7)
== END 2023-11-10 16:32 | disposition home or self-care (01) ==
PROVIDERS: Emergency Provider Nurse Practitioner Family; PCP Family Medicine Adult Medicine
DX: I73.9 Peripheral vascular disease, unspecified (principal); Z79.02 Long term (current) use of antithrombotics/antiplatelets; Z79.82 Long term (current) use of aspirin; I10 Essential (primary) hypertension; F17.210 Nicotine dependence, cigarettes, uncomplicated
CPT/HCPCS: 36415; 80053; 85025; 85610; 85730; 93926; 96374; 99284; J2270

== ENCOUNTER 2023-11-10 20:07 | Inpatient (IN) | payer BC, MEDICAID, SELFPAY ==
[2023-11-10 20:08] VITALS: BP 155/107; PULSE 85; RESP 14; TEMP 36.7; O2SAT 99
--- NOTE | 2023-11-10 20:55 | ED.C_ITS ---
HPI - Psych 2 General: Chief Complaint: Psychiatric Symptoms Stated Complaint: SI Time Seen by Provider: 11/10/23 20:39 History of Present Illness: Patient presents to the ER for the second time today. This time he complains of suicidal ideation. He states he just wants to jump out in front of a car and ended all because his mind is going which way. Patient states he was in [place] all last week and was recently released from there on duloxetine. Says feeling more depressed and more suicidal now than he was when he went in there. Review of Systems 2 General: Reports: 10 or more systems reviewed and unremarkable except in HPI and below PFSH ED 2 PFSH: Medical History Psychiatric care 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 Prediabetes Erectile dysfunction Chronic pain in left shoulder Had pain present when seen 12/2021 on his first visit and thought he might have a rotator cuff tear then Generalized anxiety disorder with panic attacks Benzodiazepine abuse Dental caries associated with enamel hypomineralization Cigarette smoker Claudication in peripheral vascular disease Since 2017 with walking 100 yards or less Chronic low back pain Hx of carotid stenosis Torn rotator cuff Hypertension Depression Social History Smoking and tobacco/nicotine status: current every day tobacco/nicotine user cigarettes Packs smoked per day: 2 Alcohol intake: current Alcohol intake frequency: few times a week Substance/Drug Use: never Marital status: Single Number of children: 0 Current occupational status: employed Physical Exam 2 Const: COMMON NORMALS: no acute distress, average body habitus, patient oriented x3, no limitations, healthy appearing, alert and well nourished HENMT: COMMON NORMALS: normocephalic, atraumatic, hearing grossly normal bilaterally, external ears normal, Normal external nose present, moist oral mucous membranes and oropharynx normal HEAD & SCALP: normocephalic and atraumatic NOSE: Normal external nose present EXTERNAL EAR: Yes external ears normal Neck/C-Spine: COMMON NORMALS: no JVD Chest: COMMONS NORMALS: normal inspection of the chest and normal palpation of entire chest wall Resp: COMMON NORMALS: normal respiratory effort, No retractions, No use of accessory muscles and clear to auscultation bilaterally AUSCULTATION: clear to auscultation bilaterally Cardio: COMMON NORMALS: no JVD, regular rate, regular rhythm, S1 normal heart sound present, S2 normal heart sound present, No gallops present (Cardio), No clicks present (Cardio), No murmurs present (Cardio) and No rub (Cardio) R ATE: regular rate RHYTHM: regular rhythm HEART SOUNDS: S1 normal heart sound present and S2 normal heart sound present GI: COMMON NORMALS: Normal to inspection, nondistended, normoactive bowel sounds present, Soft to palpation, non-tender, No hepatosplenomegaly present and no masses PALPATION: Yes Soft to palpation and Yes No hepatosplenomegaly present Neuro: COMMON NORMALS: patient oriented x3 SENSORIUM/ORIENTATION: Yes alert Course 2 Vital Signs: Vital signs: Vital Signs Temperature 98.0 F 11/10/23 20:08 Pulse Rate 85 11/10/23 20:08 Respiratory Rate 14 11/10/23 20:08 Blood Pressure 155/107 11/10/23 20:08 Pulse Oximetry 99 11/10/23 20:08 Oxygen Delivery Me thod Room Air 11/10/23 20:08 MDM - Psych Medical Decision Making Patient will be worked up in the normal psychiatric fashion for medical clearance. Anticipate once cleared he will be admitted to [facility]. Dr. Wagner has already been consulted and agreed to acceptance once clear. Differential Diagnosis Likely suicidal ideation Medical Records I reviewed the patient's medical records. Lab Data I reviewed the patient's lab results. 11/10/23 21:08 11/10/23 21:08 No radiology studies performed this visit Discharge Plan Discharge Patient Disposition: Admitted As Inpatient Clinical Impression: Suicidal ideation Condition: Stable Coding Level of Care Code ED Maintenance Analyst for Adam Adair
[2023-11-10 21:25] LABS: Basophils # 0.1 10^3/uL (0.0-0.1); Basophils % 0.6 %; Eosinophils # 0.2 10^3/uL (0.0-0.8); Eosinophils % 1.4 %; Lymphocytes # 3.6 10^3/uL (0.8-4.8); Lymphocytes % 33.1 %; Mean Corpuscular HGB Conc 34.7 g/dL (30-55); Mean Corpuscular Hemoglobin 30.9 pg (27-33); Mean Corpuscular Volume 89.1 fl (82-101); Mean Platelet Volume 8.2 fL (7.4-10.4); Monocytes # 1.1 10^3/uL (0.2-0.9); Monocytes % 10.2 %; Neutrophils # 5.78 10^3/uL (1.8-7.7); Neutrophils % 53.7 %; Nucleated Red Blood Cells % 0 %; Platelet Count 266 10^3/cmm (157-399); Red Cell Distribution Width 12.2 % (12.1-15.1); White Blood Count 10.77 10^3/uL (3.29-11.43)
[2023-11-10 21:45] LABS: Add Urine Microscopic? NO; Charge for UA Resulting for Rev
[2023-11-10 21:53] LABS: Protein Urine Neg (Negative); Specific Gravity, Urine 1.015 (1.005-1.030); Urine Appearance Clear (CLEAR); Urine Color Light yellow (Yellow); pH Urine 6 (5-7)
[2023-11-10 21:54] LABS: Bilirubin Urine Neg (Negative); Blood Urine Neg (Negative); Glucose Urine UA 2+ (Normal); Ketones Urine Negative (Negative); Leukocyte Esterase Urine Negative (Negative); Nitrate Urine Negative (Negative); Urobilinogen Urine Neg (Negative)
[2023-11-10 22:00] LABS: Alanine Aminotransferase 65 U/L (0-41); Albumin Level 4.3 g/dL (3.5-5.2); Alkaline Phosphatase 84 U/L (40-130); Anion Gap 15.6 (5-19); Aspartate Amino Transferase 36 U/L (0-40); Blood Urea Nitrogen 15 mg/dL (6-20); Calcium 9.8 mg/dL (8.5-10.5); Carbon Dioxide 27 mmol/L (22-29); Chloride 93 mmol/L (98-107); Globulin 3.5 g/dL (1.3-4.6); Glomerular Filtration Rate 81.2 mL/min (90-130); Glucose 122 mg/dL (65-115); Osmolality Calculated 276 mOsm/kg (285-295); Potassium 3.6 mmol/L (3.5-5.1); Sodium 132 mmol/L (136-145); Total Bilirubin 0.6 mg/dL (0.15-1.2); Total Protein 7.8 g/dL (6.6-8.7)
[2023-11-10 22:06] LABS: Acetaminophen < 5.0 ug/mL (10-30); Alcohol Level < 10 mg/dL (0-10); Salicylate < 0.3 mg/dL (3-10)
[2023-11-10 22:07] LABS: Amphetamines Screen Urine Negative (Negative); Barbiturates Screen Urine Negative (Negative); Benzodiazepines Screen Urine Negative (Negative); Cocaine Screen Urine Negative (Negative); Opiate Screen Urine Positive (Negative); PCP Screen Urine Negative (Negative); THC Screen Urine Negative (Negative)
[2023-11-10 22:36] VITALS: BP 117/92; PULSE 75; RESP 16; O2SAT 93
--- NOTE | 2023-11-10 22:37 | PC.NURSE ---
Report called to KRYSTIN Kulkarni in [facility]. All questions and concerns addressed at time of report.
[2023-11-10 22:54] VITALS: BP 135/96; PULSE 85; RESP 18; TEMP 36.7; O2SAT 97
[2023-11-10] MEDS: OLANZapine 5 mg ODT PO (23:31)
--- NOTE | 2023-11-11 00:32 | PC.ADMIT ---
[email or web address] Admission Note: The patient,Rudy Crawford,43 y/o, was given written information regarding hospital policies, unit procedures and contact persons. Patient's smoking status: current every day smoker. 1 PACK A DAY Vital Signs - 8 hr 11/10/23 20:08 11/10/23 22:36 11/10/23 22:54 Temperature 98.0 F 98.0 F Pulse Rate 85 75 85 Respiratory Rate 14 16 18 Blood Pressure 155/107 117/92 135/96 Pulse Oximetry 99 93 97 Oxygen Delivery Method Room Air Room Air Room Air 11/10/23 23:52 Temperature Pulse Rate Respiratory Rate Blood Pressure Pulse Oximetry Oxygen Delivery Method Room Air [facility] STAFF AT 2251. PT IS VOLUNTARY. PT STATES HE IS HERE DUE TO HAVING SUICIDAL THOUGHTS STILL. REPORTS HE HAS BEEN HAVING SUICIDAL THOUGHTS FOR OVER A MONTH. PT STATES HE WAS AT [place] ONE WEEK AGO FOR SUICIDAL THOUGHTS AND HE WAS RELEASED BACK TO [place]. PT STATES HE IS STILL HOMELESS AND CAN NOT GO TO ANY OF THE SHELTERS HERE DUE TO BEING KICKED OUT. PT CONTINUES TO REPORT SUICIDAL THOUGHTS, STATES HE WAS GOING TO JUMP OUT IN FRONT OF TRAFFIC. HAS NO PLAN CURRENTLY, ONLY PASSING THOUGHTS OF ENDING HIS LIFE. PT REPORTS HE CAN NO LONGER TAKE TRAZODONE, THAT IT MAKES IT HARD TO SWALLOW. THIS RN ADDED TRAZODONE TO ALLERGY LIST. PT REPORTS HE WAS TAKING 300 MG OF SEROQUEL BT STATES HE CAN NO LONGER TAKE IT BECAUSE IT MAKES ME FEEL WEIRD AND I KNOW THATS WHY ITS HARD FOR ME TO PEE NOW. PT STATES HE WAS ALSO TAKING GABAPENTIN BUT CAN NO LONGER TAKE IT EITHER BECAUSE I JUST DON'T WANT TO TAKE IT, IT DOESN'T WORK. PT REPORTS WHILE IN [place] HE WAS DIAGNOSED WITH A BLOOD CLOT TO HIS LEFT LEG AND HE IS CURRENTLY TAKING PLAVIX 75 MG FOR IT. PEDAL PULSES TO LEFT FOOT ARE PALPABLE BUT WEAK. PT REPORTS PAIN IN LEFT LEG AT TIMES, DISCHARGE PAPER FROM ER ON 11/10/23 SHOWS A PRESCRIPTION FOR HYDROCODONE 5/325MG WAS CALLED INTO A PHARMACY. WILL ASK DR. CASPER IF IT IS OK TO RESTART IN AM. PT STATES HE IS HAVING NO PAIN CURRENTLY RATES IT 0/10. DENIES HI AND VH AT THIS TIME. REPORTS SEEING SHADOWS BUT I THINK ITS FROM MY MEDICATIONS. RATES ANXIETY 05/06 AND DEPRESSION 04/05. ARBORIST REPRESENTATIVE GAVE PT ZYDIS 5 MG ORDERED FOR INCREASED ANXIETY. PT WAS OFFERED VISTARIL FIRST BUT PT STATED HE CAN NOT TAKE IT EITHER DUE TO IT NEVR WORKS ON MY ANXIETY ITS LIKE TAKING NOTHING. PT STATES HE IS CURRENTLY TAKING CLONAZEPAM 1 MG TID, CYMBALTA 60 MG BID, LAMICTAL 75 MG DAILY, LISINOPRIL/HYDROCHLOROTHIAZIDE 20/25MG DAILY. UNABLE TO VERIFY FROM [facility] IN [place] AT THIS TIME. WILL HAVE DAY SHIFT VERIFY. LAST PRESCRIPTIONS IN [place] SHOW PT LAST PICKED UP IN JULY AND AUGUST. PLAVIX 75 MG PO DAILY RESTARTED PER DR. MAHAN. SKIN ASSESSMENT WAS COMPLETED AND NO AREAS WERE OBSERVED, SKIN WAS CLEAR. PT POSITIVE FOR OPIATES. LAST BM 11/10/23. PT WAS ORIENTATED TO UNIT, SAFETY RULES AND GUIDELINES. ALL QUESTIONS WERE ANSWERED AND SUPPORT WAS VOICED.
[2023-11-11 06:00] VITALS: BP 110/76; PULSE 86; RESP 18; TEMP 36.6; O2SAT 98
[2023-11-11] MEDS: hydroCHLOROthiazide 25 mg Tablet PO (09:04)
[2023-11-11] MEDS: lisinopril 20 mg Tablet PO (09:04)
[2023-11-11] MEDS: clopidogrel 75 mg Tablet PO (09:04)
[2023-11-11] MEDS: lamoTRIgine 100 mg Tablet 75 MG PO (11:13)
[2023-11-11] MEDS: CLONazepam 1 mg Tablet PO ×2 (11:16→20:20)
--- NOTE | 2023-11-11 11:26 | P.NPUHP_ITS ---
Providers/Chief Complaint 2 Admitting Physician: Gigi Wagner MD Primary Care Provider: Nilesh Hutchinson MD Chief Complaint: SI HPI NPU History of Present Illness Rudy Crawford is a 43 year old male Admitted with suicidal ideation after presenting to the emergency department stating that he wished to jump out in front of a car. The patient had reported that he had been in a psychiatric facility at [facility] for the past week and was discharged on on new psychiatric medications. He had complained that he had not been able to urinate since starting his Seroquel. He reports that he has been more depressed currently. He reports that he has continued panic attacks. He reports that he has continued feelings of hopelessness and worthlessness. He reports that he has not used any illicit drugs or alcohol in over 3 months now. He reports that his Klonopin has been lowered from 6 mg/day to 3 mg/day over the last 6 weeks. He reports that he has been attempting to work but states that it has not been successful recently. He reports that he was previously staying in a alf in [place] but states that he has been homeless for weeks. Inpatient psychiatric history: Multiple inpatient stays over the last year. Outpatient psychiatric history: He has recently started with outpatient therapy and medication management at the [facility]. Current medications: Klonopin 1 mg 3 times a day, Plavix 75 mg daily, Cymbalta 60 mg twice a day, Lamictal 75 mg daily, lisinopril, nitroglycerin, propranolol 20 mg 3 times a day, Seroquel 300 mg at night, hydrocodone 1 tablet 4 times a day for pain Medical history: As previous with history of prediabetes, erectile dysfunction, left shoulder pain, peripheral vascular disease with a history of carotid Stenosis, 11/10/23:Doppler of the left lower extremity showed complete occlusion of the distal superficial femoral artery Surgical history: Rotator cuff surgery Allergies: codeine, toradol, trazodone Drug and alcohol hx: sober off alcohol for 4 months, Social Hx: see below, no new changes. Discharge summary from NPU on 08/18/23 Diagnoses at Discharge Discharge Diagnosis (1) Major depressive disorder: Status: Acute (2) Panic disorder: Status: Inactive (3) Alcohol dependence: Status: Acute (4) Generalized anxiety disorder with panic attacks: Status: Acute Reason for Visit Homicidal Brief History: History of Present Illness Rudy Crawford is a 43 year old male who presented to the emergency department with the following report: Chief Complaint: Psychiatric Symptoms Stated Complaint: Homicidal Time Seen by Provider: 08/13/23 14:05 Source: patient Mode of arrival: ambulatory Limitations: no limitations History of Present Illness: ? Patient is a 43-year-old male presents to ED today stating he is homicidal towards drug addicts and meth heads .? He states if one more meth head talks to him or knocks on his door then he is going to hurt them. No specific plan. Denies suicidal ideations. No psychosis symptoms. Recently admitted to NPU earlier this month. Reports being drug free for 8 years. Does have a history of alcohol abuse. ? MD complaint: other (homicidal ideation) Onset (ago): day(s) Duration: constant Relieving factors: none Context: significant life stressor Associated psychiatric symptoms: homicidal ideation Associated symptoms: Reports homicidal ideation; Deny auditory hallucinations, visual hallucinations, depression or suicidal ideation Treatments prior to arrival: none He was admitted to the neuropsychiatric unit for definitive treatment of those issues.? He is known to this procedure writer through past inpatient hospitalization.? His last psychiatric hospitalization ended 07/30/2023 and an excerpt of that summary is included below for context and the fact that there have been no substantive changes.? It is noteworthy that a week later on 08/06/2023 he was admitted to the medical unit where some cardiac disease was noted and plans for continued follow-up were executed.? He was discharged on 08/12/2023 from that and he returns now reporting being overwhelmed at home secondary to meth heads knocking on his door etc.? He endorsed homicidality towards these individuals and we had a long discussion about the legal implications of him acting out in an aggressive way.? We also had a long discussion about concerns related to malingering as well as concerns that this may have something to do with him not having enough Klonopin available even though he should have extra given the hospitalization.? He categorically denies that this has anything to do with the Klonopin.? We discussed moving forward with a plan to taper the Klonopin by 0.5 mg every 2 weeks such that he will be on 3-1/2 mg total daily for the next 2 weeks.? We discussed this being a short hospitalization and a plan for him to reconsider where he is living if he can get along with the people there. Per his 07/30/2023 [facility] inpatient psychiatric discharge summary: Discharge Diagnosis (1) Major depressive disorder: ? ? ? Status: Acute (2) Panic disorder: ? ? ? Status: Inactive (3) Alcohol dependence: ? ? ? Status: Acute (4) Generalized anxiety disorder with panic attacks: ? ? ? Status: Acute Reason for Visit Reason for Visit: ? psych eval? Brief History: History of Present Illness Rudy Crawford is a 43 year old male recently discharged last month from the neuropsychiatric unit who presented to the emergency room complaining of suicidal ideation and continued depression.? The patient had stated that he had been discharged from [facility] yesterday and reports that over the past 4 days his Klonopin had been decreased from 6 mg a day to 2 mg a day within a short period of time.? He reports some irritability and agitation since this reduction.? He had denied having used alcohol for the past few weeks.? He reports that he has been homeless.? He had reported that he had been struggling with panic attacks as well.? Patient had stated that he has been feeling more hopeless and worthless.? He reports sleep continuity disruption.? He had reported that he was hopeful of finding a alf in the nearby area.? He reports no acute changes otherwise and stated above. Current medications: gabapentin, aspirin, lisinopril, propranolol, quetiapine, trazodone, klonopin Previous discharge summary from NPU on 05/23/23 History of Present Illness Rudy Crawford is a 43 year old male who presented to the emergency department with the following report: Chief Complaint: Psychiatric Symptoms Stated Complaint: mag Time Seen by Provider: 05/22/23 16:58 History of Present Illness: Presents to the ER with complaints of suicidal ideations.? Patient said the world just coming down around him.? Last week patient lost his job, got really really drunk and decided to check himself into rehab down at [place] spent 3 days they are in when he got out felt that it he need just needed more time to help.? Patient is having bad thoughts of suicide.? Patient was on a bridge today and thought of jumping.? Since patient lost his job and is planning on moving in with his girlfriend and having major life stressors. He was admitted to the neuropsychiatric unit for the definitive treatment of those issues.? Patient presented today reporting that things are very stressed he reports that his anxiety is out of control and that he lost his job.? He reports that he is temporarily homeless and that he is moving into a new place next week with some woman that he has a relationship with.? He endorsed having suicidal thoughts but reports those have diminished.? He endorses a history of having anxiety helps with Klonopin.? He reports that his anxiety gets so [id number] that he has chest pains and feels like he might have a heart attack.? He endorses maybe having a cardiac history.? We reviewed his previous hospitalization from August of last year and an excerpt of that stay is included below for context and his report of limited/no substantive changes since that today.? Outside of his current living arrangement issues.? We discussed possible medications for his anxiety and he was very focused on not changing the Klonopin which we discussed that 2 mg p.o. 3 times daily is a very high dose.? He reports it has been very effective but cannot explain why he was always anxious if it is very effective.? He is not interested in any medications like SSRIs etc. reporting he knows what works.? He had initially talked about leaving AMA but then reported he would stay but he seemed quite ambivalent about this stay overall. Per his 09/25/2022 [facility] inpatient psychiatric discharge summary: Discharge Diagnosis (1) Panic disorder: ? ? ? Status: Acute (2) Alcohol dependence: ? ? ? Status: Acute (3) Benzodiazepine abuse: ? ? ? Status: Acute Reason for Visit Reason for Visit: ? Suicidal ideation? Brief History: History of Present Illness Rudy Crawford is a 42 year old male who had presented to his primary care nurse on 09/22/2020 2 in the morning requesting treatment for alcohol withdrawal.? He reports that he wishes to stop his consumption of alcohol and stated that he was having withdrawal symptoms as he had reported having last consumed alcohol on the night of 09/21/2022.? He had reported having consumed a gallon of fireball whiskey and reports having consumed a case of beer on a daily basis.? He reports his consumption of alcohol has been increasing since he was taken abruptly off of his prescribed Klonopin of 2 mg/day.? He had reported a previous history of panic attacks and considerable anxiety that had been worsening his cardiac problems.? He states that he had not been prescribed Klonopin for over a month.? He endorses a past history of withdrawal seizures although it is uncertain as to whether that was associated with withdrawal from benzodiazepines or alcohol.? He had acknowledged no depression but states that his panic attacks have been more frequent over the past few months.? He reports an extended history of chest pain shortness of breath difficulty swallowing and feeling like he is going to .? He reports that these panic attacks occur without triggers frequently. Current medications: gabapentin 300mg bid, hydrochlorothiazide/lisinopril: 25mg/20mg, hydroxyzine 25mg bid Previous admission on 06/22/2022 at [facility]: Rudy Crawford is a 42 year old single white male with a history of panic attacks coronary artery disease and hypertension who reports to the emergency department with suicidal ideation with a plan to jump off of a bridge.? He had reported that he had been feeling more depressed and reported uncontrolled anxiety over the past 3 months since he had ran out of his Klonopin 1 mg twice a day.? He had reported that he has had chronic panic attacks for many years with unknown triggered panic attacks lasting approximately 40 minutes with associated chest pain shortness of breath numbing and tingling in his fingers and difficulty with breathing.? He reports that his panic attacks have led him to the emergency department multiple times with complaints of chest pain.? He reports that he had a heart attack a few years ago and he has had these panic attacks since that time.? The patient reports being burdened by anxiety over the past few months.? He reports that he had been unable to receive his Klonopin in [place], [place] where he had moved.? He reports that he had recently moved back to the area and had not been able to see his primary care physician yet to get back on his Klonopin.? The patient had reported diminished energy low motivation and depressed mood for the past month.? He had endorsed having suicidal thoughts.? He denied any psychotic symptoms.? He denied any history of manic symptoms.? He had reported a long history of chronic worry since his heart attack occurred. Past psychiatric history: Patient has a history of 1 inpatient hospitalization 2 years ago for suicidal ideation at [facility] in [facility].? He had reported no history of psychotherapy but reports a history of having been treated for panic attacks and depression with medication trials on Lexapro and xanax.? He also reported a history of having been treated for opioid abuse with a history of having been in methadone clinic for a few years having last used methadone 6 years ago. Medical history: Chronic lower back pain peripheral vascular disease with claudication history of carotid stenosis history of hypertension, HTN Surgical history he has a history of placement of stent in the coronary artery he has a history of repair of a torn rotator cuff Allergies: Toradol Medications: Klonopin 1 mg twice a day aspirin 81 mg in the morning clonidine 0.1 mg twice a day nitroglycerin as needed Drug and alcohol history: He reports having begun use of opiates at the age of [age].? He had reported last use of opiates for treating pain few days ago.? He had reported a past history of methadone treatment but reports no substance abuse inpatient or rehabilitation in the past.? He had reported a past history of alcohol abuse but reports that he has not been drinking recently.? He denies any history of benzodiazepine misuse. Family psychiatric history: alcohol abuse-father Social History: Patient was born and raised in [place].? He is currently living in [facility] He has never been and has no children.? He was raised by his biological parents and is the youngest of 5.? 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 He denies any significant history of trauma.? He denies any history of legal issues. Update: Patient had endorsed recently having been hospitalized at [facility] in late July in an attempt to help with detoxification off of benzodiazepines and alcohol.? He reports that he had left and intensive inpatient rehabilitation facility in [place] in early August 2022.? His living situation is also changed he is currently staying with a friend near [facility]. Hospital Course He slowly acclimated to the individual, group and milieu therapies provided.? A growing theme in his visits seems to be his Klonopin.? His last hospitalization he came in left on the same day in the drive for leaving appeared to be Klonopin.? He began to leave [facility] at 1 point and the issue of note was Klonopin.? Prior to discharge this procedure writer reached out to his current prescriber who identified that he would like him to be on the lower dose but seemed very hesitant to be the funeral car driver of that change.? We agreed to drop him to 1 mg p.o. 4 times daily from the 2 mg p.o. 3 times daily.? He was given a 2-week prescription that was going to be active in 2 weeks as he left with 56 1 mg tablets that would serve him for 4 times daily for the next 2 weeks.? Therefore he had a month of medication in his outpatient provider agreed that he would see him and consider dropping it down to 3.5 mg daily otherwise he refused the Vivitrol injection reporting that he still wants to drink some and we identified that being an issue like Klonopin is a bad idea.? He was also discharged on Celexa 20 mg daily Neurontin 600 mg p.o. twice daily.? He was working with the social work team for possible treatment options but was very resistant to the options that were identified.? He had modest improvement and he was able to contract for safety outside of the hospital prior to discharge.? During the hospitalization, patient had routine laboratory studies which were within normal limits except for few outliers.? Additionally there was a general medical evaluation which was also within normal limits and revealed no new acute processes. ?At the time of discharge, he denied psychosis or lethality.? Mood and anxiety were well managed.? Patient endorsed a plan to avoid all drugs of abuse and follow-up with the aftercare recommendations of the treatment team.? Patient was evaluated and deemed to be absent credible lethality, and achieved a maximum benefit from an inpatient hospitalization, so was discharged. Meds NPU Home Medications Medication Instructions Recorded Confirmed Last Taken Type nitroglycerin 0.4 mg sublingual 0.4 mg sublingual Q5M PRN Chest 08/18/23 11/10/23 Unknown Rx tablet Pain 30 days #30 tabs clonazepam 1 mg tablet (Klonopin) 1 mg PO TID PRN anxiety 11/10/23 11/10/23 11/10/23 History clopidogrel 75 mg tablet 75 mg PO DAILY blood clot 11/10/23 11/10/23 11/10/23 History duloxetine 60 mg capsule,delayed 60 mg PO BID 11/10/23 11/10/23 11/10/23 History release (Cymbalta) hydrocodone 5 mg-acetaminophen 325 1 tab PO QID PRN pain 11/10/23 11/10/23 Unknown History mg tablet lamotrigine 100 mg tablet 75 mg PO DAILY 11/10/23 11/10/23 11/10/23 History (Lamictal) lisinopril 20 1 tab PO DAILY 11/10/23 11/10/23 11/10/23 History mg-hydrochlorothiazide 25 mg tablet propranolol 20 mg tablet 20 mg PO TID 11/10/23 11/10/23 11/10/23 History quetiapine 300 mg PO BEDTIME sleep 11/11/23 11/11/23 Unknown History Allergies Allergy/AdvReac Type Severity Reaction Status Date / Time codeine Allergy ALGY-Hives Verified 11/10/23 23:33 ketorolac [From Toradol] Allergy ALGY-Hives Verified 11/10/23 23:33 trazodone Allergy ALGY-Difficulty Verified 11/10/23 23:33 Swallowing PFSH NPU 2 PFSH: Medical History Psychiatric care 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 Prediabetes Erectile dysfunction Chronic pain in left shoulder Had pain present when seen 12/2021 on his first visit and thought he might have a rotator cuff tear then Generalized anxiety disorder with panic attacks Benzodiazepine abuse Dental caries associated with enamel hypomineralization Cigarette smoker Claudication in peripheral vascular disease Since 2017 with walking 100 yards or less Chronic low back pain Hx of carotid stenosis Torn rotator cuff Hypertension Depression Surgical History (Updated 11/11/23 @ 13:38 by Levi Briceno MD) History of coronary angioplasty with insertion of stent Family History (Updated 11/11/23 @ 13:37 by Levi Briceno MD) Other CAD (coronary artery disease) Social History Smoking and tobacco/nicotine status: current every day tobacco/nicotine user cigarettes Packs smoked per day: 2 Alcohol intake: current Alcohol intake frequency: few times a week Substance/Drug Use: never Marital status: Single Number of children: 0 Current occupational status: employed Mental Status Exam 2 MSE Comments: This is an obese white male in hospital scrubs with adequate grooming and fair eye contact. There is no evidence of any abnormal involuntary motor movements tics or tremors appreciated. He was cooperative with exam in mild distress. Speech was normal in rate, rhythm and prosody. Mood was described as depressed. His affect remained flat. Thought process was linear and organized. Thought content: Patient endorsed suicidal ideation with plan to run into traffic and denies homicidal ideation, there were no delusions reported or noted, He denied any auditory or visual hallucinations. Attention and concentration appeared intact and memory appeared mostly reliable but none were formally tested. He is alert and oriented x3. Insight, judgment and impulse control are limited versus impaired. Vitals/I&O/Wt Last Vital Signs Temp 97.8 F 11/11/23 06:00 Pulse 86 11/11/23 06:00 Resp 18 11/11/23 06:00 BP 110/76 11/11/23 06:00 Pulse Ox 98 11/11/23 06:00 O2 Del Method Room Air 11/11/23 06:00 Weight last 48 hrs Weight 108.862 kg Data NPU 11/10/23 21:08 11/10/23 21:08 A&P Assessment and plan (1) Major depressive disorder: (2) Panic disorder: (3) Alcohol dependence: (4) Generalized anxiety disorder with panic attacks: Plan Patient is a 43-year-old white male admitted with suicidal ideation, worsening anxiety, depression currently sober for last 4 months but homeless. 1. Increase Klonopin 1mg qid routinely. Hold seroquel secondary to reports of urinary retention. Continue cymbalta 120mg daily, 2.? Encourage individual, group and milieu therapy 3.? Continue q-15 minute check for safety 4.? Recommend sober living treatment at the highest level of care to which the patient is willing to commit. Involuntary Hold Information 2 96 Hour Hold: 96 Hour Involuntary Admission: No Attestations NPU 2 Medical Necessity Statement*: Inpatient hospitalization is medically necessary and clinically appropriate intervention at this time. We will monitor medications and make changes as indicated. Patient will be in the hospital for over 2 midnights. His likely length of stay is 3 to 5 days. Coding Level of Care Code Acute Code for [facility] Fwd Diagnoses Major depressive disorder F32.9 Panic disorder F41.0 Alcohol dependence F10.20 Generalized anxiety disorder with panic attacks F41.1; F41.0
[2023-11-11] MEDS: nicotine 21 mg Patch 1 PATCH TRANSDERMA (11:31)
--- NOTE | 2023-11-11 12:34 | PC.NURSE ---
@[phone] sent fax request to [facility] for all imaging and reports from 09/27/23 to 11/11/23 on patient waiting on reply at this time.
--- NOTE | 2023-11-11 12:53 | PM.CONSULT ---
Providers/Reason For Consult Consulting Physician/Specialty*: Levi Briceno MD, hospitalist Reason for Consult*: Abnormal arterial ultrasound Requesting Physician: Dr. Andrews Attending Physician: Gigi Wagner MD Primary Care Provider: Nilesh Hutchinson MD History of Present Illness History of Present Illness Rudy Crawford is a 43 year old male admitted for suicidal ideation. I am being consulted for an abnormal arterial ultrasound. Patient reported to me that he has had about 2 weeks of discomfort in his left leg. According to an emergency department note on the it lists 2 months. He reports pain in his calf, foot, tingling sensation that increases with walking. He reports no history of peripheral vascular disease. According to the patient, and the emergency department note he had a recent imaging test at [place] that demonstrated an abnormality in his left leg. I am not clear if this was an aneurysm or clot. He denies any past history of arterial issues other than 2 stents he had in his coronary arteries with a heart event in his mid 30s. He currently still smokes. At rest, he reports some minor discomfort in his foot. Review of Systems General: Reports: 10 or more systems reviewed and unremarkable except in HPI and below Card: Denies: chest pain Resp: Denies: dyspnea GI: Denies: abdominal pain Medications/Allergies Home Medications Medication Instructions Recorded Confirmed Last Taken Type nitroglycerin 0.4 mg sublingual 0.4 mg sublingual Q5M PRN Chest 08/18/23 11/10/23 Unknown Rx tablet Pain 30 days #30 tabs clonazepam 1 mg tablet (Klonopin) 1 mg PO TID PRN anxiety 11/10/23 11/10/23 11/10/23 History clopidogrel 75 mg tablet 75 mg PO DAILY blood clot 11/10/23 11/10/23 11/10/23 History duloxetine 60 mg capsule,delayed 60 mg PO BID 11/10/23 11/10/23 11/10/23 History release (Cymbalta) hydrocodone 5 mg-acetaminophen 325 1 tab PO QID PRN pain 11/10/23 11/10/23 Unknown History mg tablet lamotrigine 100 mg tablet 75 mg PO DAILY 11/10/23 11/10/23 11/10/23 History (Lamictal) lisinopril 20 1 tab PO DAILY 11/10/23 11/10/23 11/10/23 History mg-hydrochlorothiazide 25 mg tablet propranolol 20 mg tablet 20 mg PO TID 11/10/23 11/10/23 11/10/23 History quetiapine 300 mg PO BEDTIME sleep 11/11/23 11/11/23 Unknown History Allergies Allergy/AdvReac Type Severity Reaction Status Date / Time codeine Allergy ALGY-Hives Verified 11/10/23 23:33 ketorolac [From Toradol] Allergy ALGY-Hives Verified 11/10/23 23:33 trazodone Allergy ALGY-Difficulty Verified 11/10/23 23:33 Swallowing Current Medications Generic Name Dose Route Start Last Admin Trade Name Freq PRN Reason Stop Dose Admin Clonazepam 1 mg 11/11/23 10:44 11/11/23 11:16 Clonazepam 1 Mg Tablet PO 1 mg TID PRN Administration anxiety Clopidogrel Bisulfate 75 mg 11/11/23 09:00 11/11/23 09:04 Clopidogrel 75 Mg Tablet PO 75 mg DAILY BATOOL Administration Hydrochlorothiazide 25 mg 11/11/23 09:00 11/11/23 09:04 Hydrochlorothiazide 25 Mg Tablet PO 25 mg DAILY BATOOL Administration Lamotrigine 75 mg 11/11/23 10:45 11/11/23 11:13 Lamotrigine 100 Mg Tablet PO 75 mg DAILY BATOOL Administration Lisinopril 20 mg 11/11/23 09:00 11/11/23 09:04 Lisinopril 20 Mg Tablet PO 20 mg DAILY BATOOL Administration Nicotine 1 patch 11/10/23 22:54 11/11/23 11:31 Nicotine 21 Mg Patch TRANSDERMA 1 patch DAILY PRN Administration NICOTINE WITHDRAWAL Olanzapine 5 mg 11/10/23 22:54 11/10/23 23:31 Olanzapine 5 Mg Odt PO 5 mg Q4H PRN Administration Agitation/Psychosis PFSH Acute PFSH: Medical History (Updated 11/11/23 @ 13:37 by Levi Briceno MD) Psychiatric care 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 Prediabetes Erectile dysfunction Chronic pain in left shoulder Had pain present when seen 12/2021 on his first visit and thought he might have a rotator cuff tear then Generalized anxiety disorder with panic attacks Benzodiazepine abuse Dental caries associated with enamel hypomineralization Cigarette smoker Claudication in peripheral vascular disease Since 2018 with walking 100 yards or less Chronic low back pain Hx of carotid stenosis Torn rotator cuff Hypertension Depression Surgical History (Updated 11/11/23 @ 13:38 by Levi Briceno MD) History of coronary angioplasty with insertion of stent Family History (Updated 11/11/23 @ 13:37 by Levi Briceno MD) Other CAD (coronary artery disease) Social History Smoking and tobacco/nicotine status: current every day tobacco/nicotine user cigarettes Packs smoked per day: 2 Alcohol intake: current Alcohol intake frequency: few times a week Substance/Drug Use: never Marital status: Single Number of children: 0 Current occupational status: employed Vitals/I&O/Wt Last Vital Signs Temp 97.8 F 11/11/23 06:00 Pulse 86 11/11/23 06:00 Resp 18 11/11/23 06:00 BP 110/76 11/11/23 06:00 Pulse Ox 98 11/11/23 06:00 O2 Del Method Room Air 11/11/23 06:00 Weight last 48 hrs Weight 108.862 kg Physical Exam Narrative: General exam is white male, who appears comfortable, who is able to relate his medical history adequately. HEENT: Atraumatic normocephalic. Neck is supple Cardiovascular regular rate and rhythm without murmur Lungs clear Abdomen is soft, positive bowel sounds. No bruits exams deferred Extremities no cyanosis clubbing or edema. Both extremities are warm. There is not cyanosis. Left foot I cannot palpate a dorsalis pedis or posterior tibial pulse. Cap refill is less than 4 seconds. No evidence of paralysis. Data 11/10/23 21:08 11/10/23 21:08 Other Labs: I have ordered hemoglobin A1c. Arterial duplex demonstrates a complete arterial occlusion distal superficial femoral artery through the dorsalis pedis A&P Assessment and plan (1) Peripheral vascular disease: Patient with significant peripheral vascular disease, with concern on arterial duplex of complete arterial occlusion from the distal SFA to the dorsalis pedis. Patient reports at least 2 weeks of symptoms to me but 2 months to the emergency department. His foot is warm, and cap refill is adequate. He does have significant symptoms of claudication with minimal exertion. I suspect he may have some collateral formation. Apparently this has been evaluated at an outside hospital, and has had either a CTA or MRA and there is some concern with aneurysm. If aneurysm is present, vascular surgery may be needed. If no aneurysm interventional cardiology may be able to evaluate the patient. Currently his exam does not indicate an emergent problem, but certainly follow-up plan is indicated expeditiously. Continue Plavix Add statin Obtain records from [place] regarding imaging, so follow-up plan can be generated (2) CAD (coronary artery disease): Continue Plavix Add statin Currently asymptomatic Qualifiers: Associated angina: with unstable angina Coronary Disease-Associated Artery/Lesion type: [place] artery [place] vs. transplanted heart: [place] heart Qualified Code(s): I25.110 - Atherosclerotic heart disease of [place] coronary artery with unstable angina pectoris (3) Cigarette smoker: Encourage abstinence from tobacco Plan Multiple other medical problems, as addressed in past medical history Thank you for this consultation Consult Attestations Medical Necessity Statement: As per primary Diagnoses Peripheral vascular disease I73.9 Coronary artery disease involving [place] coronary artery of [place] heart with unstable angina pectoris I25.110 Associated angina: with unstable angina Coronary Disease-Associated Artery/Lesion type: [place] artery [place] vs. transplanted heart: [place] heart Cigarette smoker F17.210 Time Spent (min) 49
[2023-11-11 14:00] VITALS: BP 106/73; PULSE 103; RESP 18; TEMP 36.5; O2SAT 96
[2023-11-11 14:11] LABS: Estmated Average Glucose 157; Hemoglobin A1C 7.1 % (4.0-6.0)
[2023-11-11] MEDS: propranolol 20 mg Tablet PO ×2 (14:48→20:20)
[2023-11-11] MEDS: HYDROcodone-acetaminophen 5-325 mg Tablet 1 TAB PO (15:08)
[2023-11-11] MEDS: duloxetine 60 mg Capsule PO (17:48)
[2023-11-11] MEDS: hyDROXYzine 25 mg Capsule 50 MG PO (17:48)
[2023-11-11 19:22] VITALS: BP 126/87; PULSE 90; RESP 18; TEMP 36.7; O2SAT 96
[2023-11-11] MEDS: atorvastatin 40 mg Tablet PO (20:20)
[2023-11-12 06:00] VITALS: BP 109/81; PULSE 81; RESP 16; TEMP 36.8; O2SAT 97
[2023-11-12] MEDS: hydroCHLOROthiazide 25 mg Tablet PO (08:12)
[2023-11-12] MEDS: propranolol 20 mg Tablet PO ×3 (08:12→20:08)
[2023-11-12] MEDS: lamoTRIgine 100 mg Tablet 75 MG PO (08:12)
[2023-11-12] MEDS: clopidogrel 75 mg Tablet PO (08:12)
[2023-11-12] MEDS: duloxetine 60 mg Capsule PO ×2 (08:12→17:54)
[2023-11-12] MEDS: lisinopril 20 mg Tablet PO (08:12)
[2023-11-12] MEDS: HYDROcodone-acetaminophen 5-325 mg Tablet 1 TAB PO ×3 (08:15→20:09)
[2023-11-12] MEDS: CLONazepam 1 mg Tablet PO ×3 (08:15→20:08)
--- NOTE | 2023-11-12 08:16 | P.PN_ITS ---
Subjective 2 Subjective: Reports his leg feels better Medications: Reviewed: Yes Vitals/I&O/Wt Last Vital Signs Temp 98.2 F 11/12/23 06:00 Pulse 81 11/12/23 06:00 Resp 16 11/12/23 06:00 BP 109/81 11/12/23 06:00 Pulse Ox 97 11/12/23 06:00 O2 Del Method Room Air 11/12/23 06:00 Weight last 48 hrs Weight 108.862 kg Physical Exam 2 Narrative: General exam no distress Left lower extremity warm with good capillary refill. Pulses difficult to feel Data 11/10/23 21:08 11/10/23 21:08 A&P Assessment and plan (1) Peripheral vascular disease: Patient with significant peripheral vascular disease, with concern on arterial duplex of complete arterial occlusion from the distal SFA to the dorsalis pedis. Patient reports at least 2 weeks of symptoms to me but 2 months to the emergency department. His foot is warm, and cap refill is adequate. He does have significant symptoms of claudication with minimal exertion. I suspect he may have some collateral formation. Apparently this has been evaluated at an outside hospital, and has had either a CTA or MRA and there is some concern with aneurysm. If aneurysm is present, vascular surgery may be needed. If no aneurysm interventional cardiology may be able to evaluate the patient. Currently his exam does not indicate an emergent problem, but certainly follow- up plan is indicated expeditiously. Continue Plavix Continue statin Obtain records from [facility] regarding imaging, so follow-up plan can be generated. I will obtain these. He had similar findings on the CTA approximately 2 weeks ago there. He was instructed to follow-up with vascular surgery there secondary to aneurysm present on CTA. I briefly talked with interventional cardiology, and secondary to the aneurysm vascular surgery will be needed. I discussed with the patient that this should be evaluated in the near future, but is not emergent today. I discussed emergent indications such as increasing pain, blue cold leg, paresis, etc. (2) CAD (coronary artery disease): Continue Plavix Add statin Currently asymptomatic Qualifiers: Associated angina: with unstable angina Coronary Disease-Associated Artery/Lesion type: [place] artery [place] vs. transplanted heart: [place] heart Qualified Code(s): I25.110 - Atherosclerotic heart disease of [place] coronary artery with unstable angina pectoris (3) Cigarette smoker: Encourage abstinence from tobacco Plan Multiple other medical problems, as addressed in past medical history Thank you for this consultation I will sign off Attestations 2 Medical Necessity Statement*: As per primary Diagnoses Peripheral vascular disease I73.9 Coronary artery disease involving [place] coronary artery of [place] heart with unstable angina pectoris I25.110 Associated angina: with unstable angina Coronary Disease-Associated Artery/Lesion type: [place] artery [place] vs. transplanted heart: [place] heart Cigarette smoker F17.210 Time Spent (min) 21
[2023-11-12 14:00] VITALS: BP 119/78; PULSE 74; RESP 13; TEMP 36.4; O2SAT 100
[2023-11-12] MEDS: nicotine 21 mg Patch 1 PATCH TRANSDERMA (15:37)
--- NOTE | 2023-11-12 17:37 | P.NPUPN_ITS ---
Subjective NPU 2 Subjective: 43-year-old male admitted with suicidal ideation with a history of panic attacks and depression. He reported no urinary retention today in the absence of Seroquel. He had reported that he was feeling better with taking routine Klonopin. He reported no feelings of hopelessness. He had reported limited cravings for alcohol. He had been able to attend groups. He had reported no prior history of michael. He had been compliant with taking his medications and reports that he will follow-up with his surgeon regarding his likely DVT when he is discharged. He appeared understand that he would likely require vascular surgery. He had reported that the suicidal thoughts had been less intense. He had continued to endorse depression. Mental Status Exam 2 MSE Comments: This is an obese white male in hospital scrubs with adequate grooming and fair eye contact. There is no evidence of any abnormal involuntary motor movements tics or tremors appreciated. He was cooperative with exam in mild distress. Speech was normal in rate, rhythm and prosody. Mood was described as depressed. His affect remained restricted in range. Thought process was linear and organized. Thought content: Patient endorsed suicidal ideation with no plan and denies homicidal ideation, there were no delusions reported or noted, He denied any auditory or visual hallucinations. Attention and concentration appeared intact and memory appeared mostly reliable but none were formally tested. He is alert and oriented x3. Insight, judgment and impulse control are limited versus impaired. Vitals/I&O/Wt Last Vital Signs Temp 97.6 F 11/12/23 14:00 Pulse 74 11/12/23 14:00 Resp 13 11/12/23 14:00 BP 119/78 11/12/23 14:00 Pulse Ox 100 11/12/23 14:00 O2 Del Method Room Air 11/12/23 06:00 Weight last 48 hrs Weight 108.862 kg Data NPU 11/10/23 21:08 11/10/23 21:08 A&P Assessment and plan (1) Major depressive disorder: (2) Panic disorder: (3) Alcohol dependence: (4) Generalized anxiety disorder with panic attacks: Plan Patient is a 43-year-old white male admitted with suicidal ideation, worsening anxiety, depression currently sober for last 4 months but homeless. 1. Continue Klonopin 1mg tid routinely. Continue cymbalta 120mg daily, appreciate med consult regarding claudication/ continue statin, plavix combo 2.? Encourage individual, group and milieu therapy 3.? Continue q-15 minute check for safety 4.? Recommend sober living treatment at the highest level of care to which the patient is willing to commit. Involuntary Hold Information 2 96 Hour Hold: 96 Hour Involuntary Admission: No Attestations NPU 2 Medical Necessity Statement*: Inpatient hospitalization is medically necessary and clinically appropriate intervention at this time. We will monitor medications and make changes as indicated. His likely length of stay is 3 to 5 days. Coding Level of Care Code Acute Code for g Fwd Diagnoses Major depressive disorder F32.9 Panic disorder F41.0 Alcohol dependence F10.20 Generalized anxiety disorder with panic attacks F41.1; F41.0
[2023-11-12] MEDS: atorvastatin 40 mg Tablet PO (20:08)
[2023-11-12 20:38] VITALS: BP 109/70; PULSE 88; RESP 16; TEMP 36.5; O2SAT 97
[2023-11-13 06:00] VITALS: BP 110/76; PULSE 77; RESP 18; TEMP 36.7; O2SAT 96
[2023-11-13] MEDS: duloxetine 60 mg Capsule PO ×2 (08:08→17:34)
[2023-11-13] MEDS: lisinopril 20 mg Tablet PO (08:08)
[2023-11-13] MEDS: CLONazepam 1 mg Tablet PO ×3 (08:08→19:55)
[2023-11-13] MEDS: propranolol 20 mg Tablet PO ×3 (08:09→19:55)
[2023-11-13] MEDS: HYDROcodone-acetaminophen 5-325 mg Tablet 1 TAB PO ×3 (08:09→19:55)
[2023-11-13] MEDS: clopidogrel 75 mg Tablet PO (08:09)
[2023-11-13] MEDS: hydroCHLOROthiazide 25 mg Tablet PO (08:10)
[2023-11-13] MEDS: lamoTRIgine 100 mg Tablet 75 MG PO (08:12)
--- NOTE | 2023-11-13 12:41 | P.NPUPN_ITS ---
Subjective NPU 2 Subjective: 43-year-old male admitted with suicidal ideation with a history of panic attacks and depression. The patient reported no panic attacks. He had expressed some concern about going to [place] as his girlfriend is somewhere nearby in the area. He had hoped to eventually live with her. He reported having some suicidal thoughts but stated that his thoughts were becoming more positive. He endorsed no complaints of urinary retention with the discontinuation of Seroquel. He reported no feelings of hopelessness. He was redirectable on the milieu. He had reported having problems with concentration and reported difficulties with completing task. He reported no cravings for alcohol currently. He had reported previous trials on naltrexone in the past to manage alcohol dependence but stated that this had given him an unexpected and unexplained side effect. Mental Status Exam 2 MSE Comments: This is an obese white male in hospital scrubs with adequate grooming and fair eye contact. There is no evidence of any abnormal involuntary motor movements tics or tremors appreciated. He was cooperative with exam in mild distress. Speech was normal in rate, rhythm and prosody. Mood was described as depressed. His affect remained restricted in range. Thought process was linear and organized. Thought content: Patient endorsed no suicidal ideation and denies homicidal ideation, There were no delusions reported or noted, He denied any auditory or visual hallucinations. Attention and concentration appeared intact and memory appeared mostly reliable but none were formally tested. He is alert and oriented x3. Insight, judgment and impulse control are limited versus impaired. Vitals/I&O/Wt Last Vital Signs Temp 98.1 F 11/13/23 06:00 Pulse 77 11/13/23 06:00 Resp 18 11/13/23 06:00 BP 110/76 11/13/23 06:00 Pulse Ox 96 11/13/23 06:00 O2 Del Method Room Air 11/13/23 06:00 Data NPU 11/10/23 21:08 11/10/23 21:08 A&P Assessment and plan (1) Major depressive disorder: (2) Panic disorder: (3) Alcohol dependence: (4) Generalized anxiety disorder with panic attacks: Plan Patient is a 43-year-old white male admitted with suicidal ideation, worsening anxiety, depression currently sober for last 4 months but homeless. 1. Continue Klonopin 1mg tid routinely. Continue cymbalta 120mg daily, appreciate med consult regarding claudication/ continue statin, plavix combo. Increase lamotrigine to 100mg/daily. 2.? Encourage individual, group and milieu therapy 3.? Continue q-15 minute check for safety 4.? Recommend sober living treatment at the highest level of care to which the patient is willing to commit. Involuntary Hold Information 2 96 Hour Hold: 96 Hour Involuntary Admission: No Attestations NPU 2 Medical Necessity Statement*: Inpatient hospitalization is medically necessary and clinically appropriate intervention at this time. We will monitor medications and make changes as indicated. His likely length of stay is 3 to 5 days. Coding Level of Care Code Acute Code for [facility] Fwd Diagnoses Major depressive disorder F32.9 Panic disorder F41.0 Alcohol dependence F10.20 Generalized anxiety disorder with panic attacks F41.1; F41.0
[2023-11-13 14:00] VITALS: BP 116/81; PULSE 90; RESP 16; TEMP 36.7; O2SAT 98
[2023-11-13] MEDS: nicotine 21 mg Patch 1 PATCH TRANSDERMA (14:37)
[2023-11-13] MEDS: atorvastatin 40 mg Tablet PO (19:55)
[2023-11-13 20:12] VITALS: BP 98/65; PULSE 97; RESP 16; TEMP 36.7; O2SAT 95
[2023-11-14 06:00] VITALS: BP 114/73; PULSE 73; RESP 16; TEMP 36.6; O2SAT 95
[2023-11-14] MEDS: HYDROcodone-acetaminophen 5-325 mg Tablet 1 TAB PO ×3 (08:32→19:57)
[2023-11-14] MEDS: CLONazepam 1 mg Tablet PO ×3 (08:32→19:54)
[2023-11-14] MEDS: duloxetine 60 mg Capsule PO ×2 (08:32→18:50)
[2023-11-14] MEDS: clopidogrel 75 mg Tablet PO (08:32)
[2023-11-14] MEDS: lisinopril 20 mg Tablet PO (08:32)
[2023-11-14] MEDS: lamoTRIgine 100 mg Tablet PO (08:32)
[2023-11-14] MEDS: hydroCHLOROthiazide 25 mg Tablet PO (08:33)
[2023-11-14] MEDS: propranolol 20 mg Tablet PO ×3 (08:33→19:54)
[2023-11-14 14:00] VITALS: BP 124/73; PULSE 70; RESP 16; TEMP 36.8; O2SAT 98
--- NOTE | 2023-11-14 17:23 | P.NPUPN_ITS ---
Subjective NPU 2 Subjective: 43-year-old male admitted with suicidal ideation with a history of panic attacks and depression. The patient reported no panic attacks. Patient endorsed depressed mood. he had endorsed some feelings of hopelessness. He had reported having some thoughts of hurting himself. Patient had reported that he wished he continued to have anxiety but no longer felt jittery while taking Klonopin on a routine basis. He had reported some sleep continuity disruption. He had reported no cravings for alcohol. He had continued to report stress of being homeless. He had isolated himself on the milieu. Mental Status Exam 2 MSE Comments: This is an obese white male in hospital scrubs with adequate grooming and fair eye contact. There is no evidence of any abnormal involuntary motor movements tics or tremors appreciated. He was cooperative with exam in mild distress. Speech was normal in rate, rhythm and prosody. Mood was described as down. His affect remained restricted in range and mood congruent. Thought process was linear and organized. Thought content: Patient endorsed no suicidal ideation and denies homicidal ideation, There were no delusions reported or noted, He denied any auditory or visual hallucinations. Attention and concentration appeared intact and memory appeared mostly reliable but none were formally tested. He is alert and oriented x3. Insight, judgment and impulse control are limited versus impaired. Vitals/I&O/Wt Last Vital Signs Temp 98.3 F 11/14/23 14:00 Pulse 70 11/14/23 14:00 Resp 16 11/14/23 14:00 BP 124/73 11/14/23 14:00 Pulse Ox 98 11/14/23 14:00 O2 Del Method Room Air 11/14/23 14:00 Weight last 48 hrs Weight 107.671 kg Data NPU 11/10/23 21:08 11/10/23 21:08 A&P Assessment and plan (1) Major depressive disorder: (2) Panic disorder: (3) Alcohol dependence: (4) Generalized anxiety disorder with panic attacks: Plan Patient is a 43-year-old white male admitted with suicidal ideation, worsening anxiety, depression currently sober for last 4 months but homeless. 1. Continue Klonopin 1mg tid routinely. Continue cymbalta 120mg daily, appreciate med consult regarding claudication/ continue statin, plavix combo. Continue lamotrigine to 100mg/daily. 2.? Encourage individual, group and milieu therapy 3.? Continue q-15 minute check for safety 4.? Recommend sober living treatment at the highest level of care to which the patient is willing to commit. Involuntary Hold Information 2 96 Hour Hold: 96 Hour Involuntary Admission: No Attestations NPU 2 Medical Necessity Statement*: Inpatient hospitalization is medically necessary and clinically appropriate intervention at this time. We will monitor medications and make changes as indicated. His likely length of stay is 2-3 days. Coding Level of Care Code Acute Code for g Fwd Diagnoses Major depressive disorder F32.9 Panic disorder F41.0 Alcohol dependence F10.20 Generalized anxiety disorder with panic attacks F41.1; F41.0
[2023-11-14] MEDS: atorvastatin 40 mg Tablet PO (19:54)
[2023-11-14 20:24] VITALS: BP 116/76; PULSE 76; RESP 18; TEMP 36.4; O2SAT 98
[2023-11-15 06:00] VITALS: BP 116/80; PULSE 72; RESP 16; TEMP 36.4; O2SAT 97
[2023-11-15] MEDS: lamoTRIgine 100 mg Tablet PO (08:22)
[2023-11-15] MEDS: lisinopril 20 mg Tablet PO (08:22)
[2023-11-15] MEDS: hydroCHLOROthiazide 25 mg Tablet PO (08:22)
[2023-11-15] MEDS: propranolol 20 mg Tablet PO ×2 (08:22→14:30)
[2023-11-15] MEDS: duloxetine 60 mg Capsule PO (08:23)
[2023-11-15] MEDS: CLONazepam 1 mg Tablet PO ×2 (08:23→14:30)
[2023-11-15] MEDS: clopidogrel 75 mg Tablet PO (08:23)
[2023-11-15] MEDS: HYDROcodone-acetaminophen 5-325 mg Tablet 1 TAB PO ×2 (08:25→14:30)
[2023-11-15 12:38] VITALS: BP 108/75; PULSE 77; RESP 14; TEMP 36.5; O2SAT 98
--- NOTE | 2023-11-15 14:03 | P.NPUDS_ITS ---
Diagnoses at Discharge Discharge Diagnosis (1) Major depressive disorder: Status: Acute (2) Panic disorder: Status: Inactive (3) Alcohol dependence: Status: Acute (4) Generalized anxiety disorder with panic attacks: Status: Acute Reason for Visit Reason for Visit: SI Brief History: History of Present Illness Rudy Crawford is a 43 year old male Admitted with suicidal ideation after presenting to the emergency department stating that he wished to jump out in front of a car. The patient had reported that he had been in a psychiatric facility at [facility] for the past week and was discharged on on new psychiatric medications. He had complained that he had not been able to urinate since starting his Seroquel. He reports that he has been more depressed currently. He reports that he has continued panic attacks. He reports that he has continued feelings of hopelessness and worthlessness. He reports that he has not used any illicit drugs or alcohol in over 3 months now. He reports that his Klonopin has been lowered from 6 mg/day to 3 mg/day over the last 6 weeks. He reports that he has been attempting to work but states that it has not been successful recently. He reports that he was previously staying in a intermediate in [place] but states that he has been homeless for weeks. Inpatient psychiatric history: Multiple inpatient stays over the last year. Outpatient psychiatric history: He has recently started with outpatient therapy and medication management at the [facility]. Current medications: Klonopin 1 mg 3 times a day, Plavix 75 mg daily, Cymbalta 60 mg twice a day, Lamictal 75 mg daily, lisinopril, nitroglycerin, propranolol 20 mg 3 times a day, Seroquel 300 mg at night, hydrocodone 1 tablet 4 times a day for pain Medical history: As previous with history of prediabetes, erectile dysfunction, left shoulder pain, peripheral vascular disease with a history of carotid Stenosis, 11/10/23:Doppler of the left lower extremity showed complete occlusion of the distal superficial femoral artery Surgical history: Rotator cuff surgery Allergies: codeine, toradol, trazodone Drug and alcohol hx: sober off alcohol for 4 months, Social Hx: see below, no new changes. Discharge summary from [facility] on 08/18/23 Diagnoses at Discharge Discharge Diagnosis (1) Major depressive disorder: Status: Acute (2) Panic disorder: Status: Inactive (3) Alcohol dependence: Status: Acute (4) Generalized anxiety disorder with pa emily attacks: Status: Acute Reason for Visit Homicidal Brief History: History of Present Illness Rudy Crawford is a 43 year old male who presented to the emergency department with the following report: Chief Complaint: Psychiatric Symptoms Stated Complaint: Homicidal Time Seen by Provider: 08/13/23 14:05 Source: patient Mode of arrival: ambulatory Limitations: no limitations History of Present Illness: ? Patient is a 43-year-old male presents to ED today stating he is homicidal towards drug addicts and meth heads .? He states if one more meth head talks to him or knocks on his door then he is going to hurt them. No specific plan. Denies suicidal ideations. No psychosis symptoms. Recently admitted to [facility] earlier this month. Reports being drug free for 8 years. Does have a history of alcohol abuse. ? MD complaint: other (homicidal ideation) Onset (ago): day(s) Duration: constant Relieving factors: none Context: significant life stressor Associated psychiatric symptoms: homicidal ideation Associated symptoms: Reports homicidal ideation; Deny auditory hallucinations, visual hallucinations, depression or suicidal ideation Treatments prior to arrival: none He was admitted to the neuropsychiatric unit for definitive treatment of those issues.? He is known to this ghost writer through past inpatient hospitalization.? His last psychiatric hospitalization ended 07/30/2023 and an excerpt of that summary is included below for context and the fact that there have been no substantive changes.? It is noteworthy that a week later on 08/06/2023 he was admitted to the medical unit where some cardiac disease was noted and plans for continued follow-up were executed.? He was discharged on 08/12/2023 from that and he returns now reporting being overwhelmed at home secondary to meth heads knocking on his door etc.? He endorsed homicidality towards these individuals and we had a long discussion about the legal implications of him acting out in an aggressive way.? We also had a long discussion about concerns related to malingering as well as concerns that this may have something to do with him not having enough Klonopin available even though he should have extra given the hospitalization.? He categorically denies that this has anything to do with the Klonopin.? We discussed moving forward with a plan to taper the Klonopin by 0.5 mg every 2 weeks such that he will be on 2 mg total daily for the next 2 weeks.? We discussed this being a short hospitalization and a plan for him to reconsider where he is living if he can get along with the people there. Per his 07/30/2023 [facility] inpatient psychiatric discharge summary: Discharge Diagnosis (1) Major depressive disorder: ? ? ? Status: Acute (2) Panic disorder: ? ? ? Status: Inactive (3) Alcohol dependence: ? ? ? Status: Acute (4) Generalized anxiety disorder with pa emily attacks: ? ? ? Status: Acute Reason for Visit Reason for Visit: ? psych eval? Brief History: History of Present Illness Rudy Crawford is a 43 year old male recently discharged last month from the neuropsychiatric unit who presented to the emergency room complaining of suicidal ideation and continued depression.? The patient had stated that he had been discharged from [place] yesterday and reports that over the past 4 days his Klonopin had been decreased from 6 mg a day to 2 mg a day within a short period of time.? He reports some irritability and agitation since this reduction.? He had denied having used alcohol for the past few weeks.? He reports that he has been homeless.? He had reported that he had been struggling with panic attacks as well.? Patient had stated that he has been feeling more hopeless and worthless.? He reports sleep continuity disruption.? He had reported that he was hopeful of finding a intermediate in the nearby area.? He reports no acute changes otherwise and stated above. Current medications: gabapentin, aspirin, lisinopril, propranolol, quetiapine, trazodone, klonopin Previous discharge summary from [facility] on 05/23/23 History of Present Illness Rudy Crawford is a 43 year old male who presented to the emergency department with the following report: Chief Complaint: Psychiatric Symptoms Stated Complaint: mag Time Seen by Provider: 05/22/23 16:58 History of Present Illness: Presents to the ER with complaints of suicidal ideations.? Patient said the world just coming down around him.? Last week patient lost his job, got really really drunk and decided to check himself into rehab down at [place] spent 3 days they are in when he got out felt that it he need just needed more time to help.? Patient is having bad thoughts of suicide.? Patient was on a bridge today and thought of jumping.? Since patient lost his job and is planning on moving in with his girlfriend and having major life stressors. He was admitted to the neuropsychiatric unit for the definitive treatment of those issues.? Patient presented today reporting that things are very stressed he reports that his anxiety is out of control and that he lost his job.? He reports that he is temporarily homeless and that he is moving into a new place next week with some woman that he has a relationship with.? He endorsed having suicidal thoughts but reports those have diminished.? He endorses a history of having anxiety helps with Klonopin.? He reports that his anxiety gets so [id number] that he has chest pains and feels like he might have a heart attack.? He endorses maybe having a cardiac history.? We reviewed his previous hospitalization from August of last year and an excerpt of that stay is included below for context and his report of limited/no substantive changes since that today.? Outside of his current living arrangement issues.? We discussed possible medications for his anxiety and he was very focused on not changing the Klonopin which we discussed that 2 mg p.o. 3 times daily is a very high dose.? He reports it has been very effective but cannot explain why he was always anxious if it is very effective.? He is not interested in any medications like SSRIs etc. reporting he knows what works.? He had initially talked about leaving AMA but then reported he would stay but he seemed quite ambivalent about this stay overall. Per his 09/25/2022 [facility] inpatient psychiatric discharge summary: Discharge Diagnosis (1) Panic disorder: ? ? ? Status: Acute (2) Alcohol dependence: ? ? ? Status: Acute (3) Benzodiazepine abuse: ? ? ? Status: Acute Reason for Visit Reason for Visit: ? Suicidal ideation? Brief History: History of Present Illness Rudy Crawford is a 42 year old male who had presented to his primary care nurse on 09/22/2020 2 in the morning requesting treatment for alcohol withdrawal.? He reports that he wishes to stop his consumption of alcohol and stated that he was having withdrawal symptoms as he had reported having last consumed alcohol on the night of 09/21/2022.? He had reported having consumed a gallon of fireball whiskey and reports having consumed a case of beer on a daily basis.? He reports his consumption of alcohol has been increasing since he was taken abruptly off of his prescribed Klonopin of 2 mg/day.? He had reported a previous history of panic attacks and considerable anxiety that had been worsening his cardiac problems.? He states that he had not been prescribed Klonopin for over a month.? He endorses a past history of withdrawal seizures although it is uncertain as to whether that was associated with withdrawal from benzodiazepines or alcohol.? He had acknowledged no depression but states that his panic attacks have been more frequent over the past few months.? He reports an extended history of chest pain shortness of breath difficulty swallowing and feeling like he is going to .? He reports that these panic attacks occur without triggers frequently. Current medications: gabapentin 300mg bid, hydrochlorothiazide/lisinopril: 25mg/20mg, hydroxyzine 25mg bid Previous admission on 06/22/2022 at [facility]: Rudy Crawford is a 42 year old single white male with a history of panic attacks coronary artery disease and hypertension who reports to the emergency department with suicidal ideation with a plan to jump off of a bridge.? He had reported that he had been feeling more depressed and reported uncontrolled anxiety over the past 3 months since he had ran out of his Klonopin 1 mg twice a day.? He had reported that he has had chronic panic attacks for many years with unknown triggered panic attacks lasting approximately 40 minutes with associated chest pain shortness of breath numbing and tingling in his fingers and difficulty with breathing.? He reports that his panic attacks have led him to the emergency department multiple times with complaints of chest pain.? He reports that he had a heart attack a few years ago and he has had these panic attacks since that time.? The patient reports being burdened by anxiety over the past few months.? He reports that he had been unable to receive his Klonopin in [place], [place] where he had moved.? He reports that he had recently moved back to the area and had not been able to see his primary care physician yet to get back on his Klonopin.? The patient had reported diminished energy low motivation and depressed mood for the past month.? He had endorsed having suicidal thoughts.? He denied any psychotic symptoms.? He denied any history of manic symptoms.? He had reported a long history of chronic worry since his heart attack occurred. Past psychiatric history: Patient has a history of 1 inpatient hospitalization 2 years ago for suicidal ideation at [facility] in [facility].? He had reported no history of psychotherapy but reports a history of having been treated for panic attacks and depression with medication trials on Lexapro and xanax.? He also reported a history of having been treated for opioid abuse with a history of having been in methadone clinic for a few years having last used methadone 6 years ago. Medical history: Chronic lower back pain peripheral vascular disease with claudication history of carotid stenosis history of hypertension, HTN Surgical history he has a history of placement of stent in the coronary artery he has a history of repair of a torn rotator cuff Allergies: Toradol Medications: Klonopin 1 mg twice a day aspirin 81 mg in the morning clonidine 0.1 mg twice a day nitroglycerin as needed Drug and alcohol history: He reports having begun use of opiates at the age of [age].? He had reported last use of opiates for treating pain few days ago.? He had reported a past history of methadone treatment but reports no substance abuse inpatient or rehabilitation in the past.? He had reported a past history of alcohol abuse but reports that he has not been drinking recently.? He denies any history of benzodiazepine misuse. Family psychiatric history: alcohol abuse-father Social History: Patient was born and raised in [place] [facility].? He is currently living in [facility].? He has never been and has no children.? He was raised by his biological parents and is the youngest of 5.? 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 He denies any significant history of trauma.? He denies any history of legal issues. Update: Patient had endorsed recently having been hospitalized at [facility] in late July in an attempt to help with detoxification off of benzodiazepines and alcohol.? He reports that he had left and intensive inpatient rehabilitation facility in [place] in early August 2022.? His living situation is also changed he is currently staying with a friend near [facility]. Hospital Course He slowly acclimated to the individual, group and milieu therapies provided.? A growing theme in his visits seems to be his Klonopin.? His last hospitalization he came in left on the same day in the drive for leaving appeared to be Klonopin.? He began to leave [place] at 1 point and the issue of note was Klonopin.? Prior to discharge this ghost writer reached out to his current prescriber who identified that he would like him to be on the lower dose but seemed very hesitant to be the seasonal driver of that change.? We agreed to drop him to 1 mg p.o. 4 times daily from the 2 mg p.o. 3 times daily.? He was given a 2-week prescription that was going to be active in 2 weeks as he left with 56 1 mg tablets that would serve him for 4 times daily for the next 2 weeks.? Therefore he had a month of medication in his outpatient provider agreed that he would see him and consider dropping it down to 3.5 mg daily otherwise he refused the Vivitrol injection reporting that he still wants to drink some and we identified that being an issue like Klonopin is a bad idea.? He was also discharged on Celexa 20 mg daily Neurontin 600 mg p.o. twice daily.? He was working with the social work team for possible treatment options but was very resistant to the options that were identified.? He had modest improvement and he was able to contract for safety outside of the hospital prior to discharge.? During the hospitalization, patient had routine laboratory studies which were within normal limits except for few outliers.? Additionally there was a general medical evaluation which was also within normal limits and revealed no new acute processes. ?At the time of discharge, he denied psychosis or lethality.? Mood and anxiety were well managed.? Patient endorsed a plan to avoid all drugs of abuse and follow-up with the aftercare recommendations of the treatment team.? Patient was evaluated and deemed to be absent credible lethality, and achieved a maximum benefit from an inpatient hospitalization, so was discharged. Hospital Course Hospital Course During the hospitalization, the patient had routine laboratory studies which were within normal limits except for a few outliers.? Additionally, there was a general medical evaluation which was also within normal limits and revealed no new acute processes.? At the time of discharge, lethality was denied and psychosis was resolving.? Mood and anxiety were well managed.? The patient endorsed a plan to avoid all drugs of abuse and follow up with the aftercare recommendations of the treatment team.? The patient was evaluated and deemed to be absent credible lethality and had achieved the maximum benefit from an inpatient hospitalization, and so was discharged.? Seroquel was discontinued due to concerns that it worsened the patient's urinary retention. Another CV arterial duplex of the lower extremity revealed arterial occlusion and it was similar to a recent study and the patient was planning on following up with his Vascular Surgeon Dr. Garett Benton as previously done. Involuntary Hold Information 96 Hour Hold: 96 Hour Involuntary Admission: No Mental Status Exam MSE Comments: This is an obese white male in hospital scrubs with adequate grooming and fair eye contact. There is no evidence of any abnormal involuntary motor movements tics or tremors appreciated. He was cooperative with exam in mild distress. Speech was normal in rate, rhythm and prosody. Mood was described as okay. His affect was slightly restricted on discharge. Thought process was linear and organized. Thought content: Patient endorsed no suicidal ideation and denies homicidal ideation, There were no delusions reported or noted, He denied any auditory or visual hallucinations. Attention and concentration appeared intact and memory appeared mostly reliable but none were formally tested. He is alert and oriented x3. Insight was improved. His judgment was fair and impulse control is improved. Discharge Data Studies Completed and Pending: Laboratory Results WBC 10.77 10^3/uL (3. 29-11.43) 11/10/23 21:08 RBC 5.50 10^6/uL (3.8 5-5.65) 11/10/23 21:08 Hgb 17.00 g/dL (11.27 -16.99) H 11/10/23 21:08 Hct 49.0 % (37-53) 11/10/23 21:08 MCV 89.1 fl (82-101) 11/10/23 21:08 MCH 30.9 pg (27-33) 11/10/23 21:08 MCHC 34.7 g/dL (30-55) 11/10/23 21:08 RDW 12.2 % (12.1-15.1 ) 11/10/23 21:08 Plt Count 266 10^3/cmm (157 -399) 11/10/23 21:08 MPV 8.2 fL (7.4-10.4) 11/10/23 21:08 Neut % (Auto) 53.7 % 11/10/23 21:08 Lymph % (Auto) 33.1 % 11/10/23 21:08 [place] % (Auto) 10.2 % 11/10/23 21:08 Eos % (Auto) 1.4 % 11/10/23 21:08 Baso % (Auto) 0.6 % 11/10/23 21:08 Neut # (Auto) 5.78 10^3/uL (1.8 -7.7) 11/10/23 21:08 Lymph # (Auto) 3.6 10^3/uL (0.8- 4.8) 11/10/23 21:08 [place] # (Auto) 1.1 10^3/uL (0.2- 0.9) H 11/10/23 21:08 Eos # (Auto) 0.2 10^3/uL (0.0- 0.8) 11/10/23 21:08 Baso # (Auto) 0.1 10^3/uL (0.0- 0.1) 11/10/23 21:08 Nucleated RBC % (a uto) 0 % 11/10/23 21:08 Nucleated RBCs # 0.0 /100WBC 11/10/23 21:08 Sodium 132 mmol/L (136-1 45) L 11/10/23 21:08 Potassium 3.6 mmol/L (3.5-5 .1) 11/10/23 21:08 Chloride 93 mmol/L (98-107 ) L 11/10/23 21:08 Carbon Dioxide 27 mmol/L (22-29) 11/10/23 21:08 Anion Gap 15.6 (5-19) 11/10/23 21:08 BUN 15 mg/dL (6-20) 11/10/23 21:08 Creatinine 1.0 mg/dL (0.7-1. 2) 11/10/23 21:08 GFR Calculation 81.2 mL/min (90-1 30) L 11/10/23 21:08 Glucose 122 mg/dL (65-115 ) H 11/10/23 21:08 Estimat Average Gl ucose 157 11/10/23 21:08 Hemoglobin A1c 7.1 % (4.0-6.0) H 11/10/23 21:08 Calculated Osmolal ity 276 mOsm/kg (285- 295) L 11/10/23 21:08 Calcium 9.8 mg/dL (8.5-10 .5) 11/10/23 21:08 Total Bilirubin 0.6 mg/dL (0.15-1 .2) 02/14/24 21:08 AST 36 U/L (0-40) 11/10/23 21: ALT 65 U/L (0-41) H 11/10/23 21: Alkaline Phosphata se 84 U/L (40-130) 11/10/23 21:08 Total Protein 7.8 g/dL (6.6-8.7 ) 11/10/23 21: Albumin 4.3 g/dL (3.5-5.2 ) 11/10/23 21: Globulin 3.5 g/dL (1.3-4.6 ) 11/10/23 21: Urine Color Light yellow (Ye llow) 11/10/23 21: Urine Appearance Clear (CLEAR) 11/10/23 21: Urine pH 6 (5-7) 11/10/23 21: Ur Specific Gravit y 1.015 (1.005-1.0 30) 11/10/23 21: Urine Protein Neg (Negative) 11/10/23 21: Urine Glucose (UA) 2+ (Normal) H 11/10/23 21:28 Urine Ketones Negative (Negati ve) 11/10/23 21: Urine Blood Neg (Negative) 11/10/23 21: Urine Nitrate Negative (Negati ve) 11/10/23: Urine Bilirubin Neg (Negative) 11/10/23 21: Urine Urobilinogen Neg mg/dL (Negati ve) 11/10/23 21: Ur Leukocyte Devi ase Negative (Negati ve) 11/10/23 21: Salicylates < 0.3 mg/dL (3-10 ) L 11/10/23 21:08 Urine Opiates Scre en Positive ng/mL (N egative) H 11/10/23 21: Acetaminophen < 5.0 ug/mL (10-3 0) L 11/10/23 21:08 Ur Barbiturates Sc reen Negative ng/mL (N egative) 11/10/23 21:28 Ur Phencyclidine S crn Negative ng/mL (N egative) 11/10/23 21:28 Ur Amphetamines Sc reen Negative ng/mL (N egative) 11/10/23 21:28 U Benzodiazepines Scrn Negative ng/mL (N egative) 11/10/23 21:28 Urine Cocaine Scre en Negative ng/mL (N egative) 11/10/23 21:28 U Marijuana (THC) Screen Negative ng/mL (N egative) 11/10/23 21:28 Ethyl Alcohol < 10 mg/dL (0-10) 11/10/23 21:08 Vitals: Last Vital Signs Temp 97.7 F 11/15/23 12:38 Pulse 77 11/15/23 12:38 Resp 14 11/15/23 12:38 BP 108/75 11/15/23 12:38 Pulse Ox 98 11/15/23 12:38 O2 Del Method Room Air 11/15/23 06:00 Discharge Plan Discharge Patient Disposition: Home Condition: Stable Prescriptions: New atorvastatin 40 mg Tablet 40 mg PO BEDTIME 30 Days Qty: 30 1RF lamotrigine 100 mg Tablet 100 mg PO DAILY 30 Days Qty: 30 1RF duloxetine 60 mg Capsule,Delayed Release(Dr/Ec) 60 mg PO BID 30 Days Qty: 60 1RF clonazepam 1 mg Tablet 1 mg PO TID 15 Days Qty: 45 2RF Continued nitroglycerin 0.4 mg Tablet, Sublingual 0.4 mg sublingual Q5M PRN (Reason: Chest Pain) 30 Days Qty: 30 1RF propranolol 20 mg tablet 20 mg PO TID lisinopril-hydrochlorothiazide 20-25 mg tablet 1 tab PO DAILY hydrocodone-acetaminophen 5-325 mg tablet 1 tab PO QID PRN (Reason: pain) clopidogrel 75 mg tablet 75 mg PO DAILY Discontinued clonazepam [Klonopin] 1 mg tablet 1 mg PO TID PRN (Reason: anxiety) Cymbalta 60 mg Capsule,Delayed Release(Dr/Ec) 60 mg PO BID Lamictal 100 mg Tablet 75 mg PO DAILY quetiapine 300 mg 300 mg PO BEDTIME Rx Instructions: 1 tablet at bedtime. Discharge Orders: Discharge Order (Routine); Ordered 11/15/23 Ordered By: Keny Andrews Referrals: Mayra Rodarte [facility] [Staff Physician] - 11/16/23 8:45 am Nilesh Hutchinson MD [Primary Care Provider] - Discharge Diet: Usual diet Discharge Activity: Resume usual activity Patient Instructions: Opioid Safety Discharge Attestations [facility] Time Spent in Discharge Care*: less than 30 min Specific Discharge Activities: Specific discharge activities: educating patient and documenting/other paperwork Coding Level of Care Code Acute Code for Chg Fwd Diagnoses Major depressive disorder F32.9 Panic disorder F41.0 Alcohol dependence F10.20 Generalized anxiety disorder with panic attacks F41.1; F41.0
[2023-11-15 14:25] VITALS: BP 108/75; PULSE 77; RESP 14; TEMP 36.5; O2SAT 98
== END 2023-11-15 15:22 | disposition home or self-care (01) | DRG 881 ==
LOC: ER 21:25 → NP 21:31
PROVIDERS: Internal Medicine; Admitting Provider Psychiatry & Neurology Psychiatry; Emergency Provider Emergency Medicine; PCP Family Medicine Adult Medicine; Visit Provider Psychiatry & Neurology Psychiatry
DX: F32.9 Major depressive disorder, single episode, unspecified (principal); R45.851 Suicidal ideations; Z59.01 Sheltered homelessness; F41.0 Panic disorder [episodic paroxysmal anxiety]; F10.20 Alcohol dependence, uncomplicated; F41.1 Generalized anxiety disorder; F17.210 Nicotine dependence, cigarettes, uncomplicated; G89.29 Other chronic pain; M54.50 Low back pain, unspecified; I10 Essential (primary) hypertension; E66.9 Obesity, unspecified; I25.10 Atherosclerotic heart disease of native coronary artery without angina pectoris; I73.9 Peripheral vascular disease, unspecified; Z68.37 Body mass index [BMI] 37.0-37.9, adult; Z95.5 Presence of coronary angioplasty implant and graft; Z79.02 Long term (current) use of antithrombotics/antiplatelets
CPT/HCPCS: 36415; 80053; 80306; 80307; 81003; 83036; 85025; 97165; 99285

== ENCOUNTER 2023-11-24 09:00 | Emergency (ER) | payer BC, MEDICAID, SELFPAY ==
[2023-11-24] VITALS (51 sets, daily range): BP systolic 113–176; BP diastolic 70–126; PULSE 86–108; RESP 11–31; TEMP 36.6; O2SAT 74–99; BMI 36.0
--- NOTE | 2023-11-24 09:02 | ECG_ITS ---
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 Measurements Intervals [place] Rate: 102 P: 2 ME: 140 QRS: 49 QRSD: 122 T: 58 QT: 390 QTc: 510 Interpretive Statements SINUS TACHYCARDIA POSSIBLE RIGHT VENTRICULAR CONDUCTION DELAY [RSR (QR) IN V1/V2] NONSPECIFIC ST ELEVATION [0.05+ mV ST ELEVATION] Compared to ECG 08/06/2023 21:34:24 ST (T wave) deviation now present Sinus rhythm no longer present Electronically Signed On 11-24-2023 11:08:37 WOOD PATTERNMAKER by Michael Cabrera M.D. [id number]
--- NOTE | 2023-11-24 09:43 | XR_ITS ---
WS: [id number] Exam: XR chest 1V portable [id number] Date/Time of Exam: 11/24/2023 9:51 AM Reason For Exam: cp Comparison 08/06/2023. Lungs are clear and fully expanded. Normal cardiomediastinal silhouette and regional bony elements. N o pleural effusions. IMPRESSION: 1. Negative chest. No change.
--- NOTE | 2023-11-24 09:54 | PC.PHAR ---
pt states he takes care of his own medications-pt states he dced the cymbalta 60mg bid rx written on 11/15/23 states he dced 2 weeks ago and lamotrigine 100mg daily written on 11/15/23 states he dced months ago-[facility] had an rx for quetiapine 300mg hs written on 11/10/23 from a in [place] states rx is on hold ext shows last filled 07/28/23 30d/s-ext med history shows lisinopril 20mg daily filled 10/23/23 3d/s pt states he didnt brain picker doryh jeffrey states was picked up pt states he only takes the lisinopril/hctz 20-25mg daily-notes are made in the pharmacy comments
--- NOTE | 2023-11-24 10:02 | CT_ITS ---
WS: [id number] CT CHEST ANGIOGRAPHY WITH REFORMATS HISTORY: chest pain with left dvt TECHNIQUE: Contiguous axial images are obtained through the chest during arterial injection of intrav enous contrast. Images are reconstructed to evaluate the pulmonary arteries. MIP imaging also reviewe d. All CT scans at [facility] use at least one of these dose optimization techniques: automat ed exposure control; mA and/or kV adjustment per patient size (includes targeted exams where dose is matched to clinical indication); or iterative reconstruction. CONTRAST: Omnipaque 350; 100 mL IV. DLP: 495.55 mGy.cm COMPARISON: 07/24/2023 Suboptimal opacification of the pulmonary arteries. No central filling defect pulmonary emboli identi fied. There is no RIGHT heart strain. Mild LEFT heart enlargement. Mild atherosclerosis aorta. Poor inspiration. Mild crowding of the lung markings. No pneumonia. Small hiatal hernia. Mild hepatic steatosis. Mild nodularity of the RIGHT adrenal gland. Nodule measures 7 mm. IMPRESSION: 1. No pulmonary embolism. 2. No pneumonia. 3. Mild LEFT heart enlargement.
--- NOTE | 2023-11-24 10:05 | ED_ITS ---
HPI - Chest Pain 2 General: Chief Complaint: Chest Pain Stated Complaint: chest pain Time Seen by Provider: 11/24/23 09:44 Source: patient Mode of arrival: ambulatory Limitations: no limitations History of Present Illness: This patient presents to the emergency department as a left-sided chest pain. He states the pain has been present and constant for approximately 2 days without any change with position activity movement etc. He states he has had a prior history of coronary disease and has had 2 stents placed. He states he also was seen at [facility] approximately 4 weeks ago and diagnosed as having a blood clot in his left leg and has been taking Plavix for that condition. He denies any fevers or chills etc. He denies any falls or trauma. MD complaint: chest pain Pertinent past history: coronary artery disease Onset: during rest Relieving factors: nothing Exacerbating factors: nothing Associated symptoms: Deny abdominal pain, dyspnea, fever(s), nausea, palpitations, syncope or vomiting Risk Factors: Coronary artery disease risk factors: smoking history Pulmonary embolism risk factors: history of deep vein thrombosis Review of Systems 2 Const: Denies: fever(s) or chills Eyes: Denies: change in vision ENMT: Denies: throat pain or odynophagia Card: Reports: chest pain; Denies: palpitations, irregular heart rhythm, syncope or pre-syncope Resp: Reports: non-productive cough; Denies: dyspnea or productive cough GI: Denies: abdominal pain, nausea, vomiting or diarrhea : Denies: flank pain, difficulty urinating, dysuria or urinary frequency Musc: Reports: extremity pain; Denies: neck pain, back pain or extremity swelling Skin/Breast: Denies: rash or pruritus Neuro: Denies: headache(s), numbness in extremities or weakness in extremities Psych: Reports: anxiety; Denies: suicidal ideation or homicidal ideation PFSH ED 2 PFSH: Medical History Alcohol dependence Psychiatric care 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 Prediabetes Erectile dysfunction Chronic pain in left shoulder Had pain present when seen 12/2021 on his first visit and thought he might have a rotator cuff tear then Generalized anxiety disorder with panic attacks Benzodiazepine abuse Dental caries associated with enamel hypomineralization Cigarette smoker Claudication in peripheral vascular disease Since 2018 with walking 100 yards or less Chronic low back pain Torn rotator cuff Hypertension Depression Surgical History History of coronary angioplasty with insertion of stent Family History Other CAD (coronary artery disease) Social History Smoking and tobacco/nicotine status: current every day tobacco/nicotine user cigarettes Packs smoked per day: 2 Alcohol intake: current Alcohol intake frequency: few times a week Substance/Drug Use: never Marital status: Single Number of children: 0 Current occupational status: employed Physical Exam 2 Narrative: EXAM NARRATIVE: Somewhat anxious but cooperative. Speech is fluent and goal-directed. Const: COMMON NORMALS: no acute distress, patient oriented x3 and alert G ENERAL APPEARANCE: anxious NUTRITIONAL APPEARANCE: overweight O RIENTATION/CONSCIOUSNESS: Yes awake HENMT: COMMON NORMALS: normocephalic, Normal nasal mucous membranes and turbinates present and moist oral mucous membranes HEAD & SCALP: n ormocephalic NOSE: Normal nasal mucous membranes and turbinates present Eye: COMMON NORMALS: Equal, round and reactive pupils present, EOMs intact bilaterally and conjunctivae normal CONJUNCTIVA: Yes conjunctivae normal P UPIL: Yes Equal, round and reactive pupils present Neck/C-Spine: COMMON NORMALS: full ROM, no lymphadenopathy, no JVD and No carotid bruits Chest: COMMONS NORMALS: normal inspection of the chest and normal palpation of entire chest wall Resp: COMMON NORMALS: normal respiratory effort, No retractions, No use of accessory muscles and clear to auscultation bilaterally AUSCULTATION: clear to auscultation bilaterally Cardio: COMMON NORMALS: no JVD, regular rate, regular rhythm, No murmurs present (Cardio) and Peripheral pulses 2+ throughout RATE: regular rate R HYTHM: regular rhythm PERIPHERAL PULSES: Peripheral pulses 2+ throughout GI: COMMON NORMALS: Normal to inspection, nondistended, normoactive bowel sounds present, Soft to palpation and non-tender PALPATION: Yes Soft to palpation : COMMON NORMALS: Yes no CVA tenderness BLADDER/KIDNEY EXAM: Yes no CVA tenderness Back/Pelvis: COMMON NORMALS: no CVA tenderness, thoracic and lumbar spine normal to inspection, no thoracic nor lumbar tenderness, thoraco-lumbar ROM normal and straight leg raise negative bilaterally Extremity: COMMON NORMALS: normal to inspection, full ROM and capillary refill normal NARRATIVE EXTREMITY EXAM: Left calf tenderness to palpation. Dorsiflexion of the left foot causes symptoms as well. The diminished pulses are but noted to be palpable to dorsalis pedis and the posterior tibialis good capillary refill and skin color is noted. There normal hair distribution on the distal leg and toes of the foot. There are no ulcers. Neuro: COMMON NORMALS: patient oriented x3, moves all extremities, no focal motor deficits and no sensory deficits noted SENSORIUM/ORIENTATION: Yes alert Psych: COMMON NORMALS: mental status grossly normal Skin: COMMON NORMALS: no rashes or lesions noted, no wounds and turgor normal GENERAL SKIN EXAM: no rashes or lesions noted and turgor normal Course 2 Reevaluation(s): Reevaluation #1: I asked nursing staff to do ABIs on this patient and they were unable to get a blood pressure reading on his left lower extremity. The remainder of his blood pressures were all relatively equal and no evidence of any abnormalities in the other 3 extremities Time: 10:53 Reevaluation #2: I discussed current findings with the patient in detail to include the fact that he does not have any evidence of pulmonary embolus, ACS acute SC etc. but he has severe occlusion of the femoral artery of his left leg that needs attention immediately. We discussed finding his way to the vascular surgeon as soon as possible and that failure to do so should may in fact result in loss of his lower leg and other worsening outcome. We also admonished him to immediately stop smoking and continue all his previously prescribed medication. He acknowledges discussion and stated that he was had some difficulty finding a ride to that area we discussed alternatives and ways to get to that region and he plans on working on it but does not intending on going anywhere today. The patient is cogent voices understanding of the consequences of failure to proceed as recommended and is not under the influence of any mind altering substances that is obvious to this examiner and is intact decision-making capacity. Time: 12:43 Vital Signs: Vital signs: Vital Signs Temperature 97.9 F 11/24/23 09:02 Pulse Rate 94 11/24/23 12:20 Respiratory Rate 15 11/24/23 12:20 Blood Pressure 124/94 11/24/23 12:20 Pulse Oximetry 99 11/24/23 12:20 Oxygen Delivery Me thod Room Air 11/24/23 10:50 MDM - Chest Pain Medical Decision Making This patient presented to the emergency department with concerns about left leg pain as well as left chest pain. He has had a history of a SC in the past with stent placement according to the patient. He is still a tobacco user. 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 He states the left-sided chest pain has been continuous for the last 2 days and not relieved or affected by any activity or position etc. His clinical exam did not reveal any focal findings other than perhaps objectively diminished pulse in his left lower extremity but they were palpable and he had good color tone, capillary refill, hair distribution etc. Workup ensued to ensure no evidence of ACS, pulmonary embolus or other concerning pathology. Prior records were reviewed as well and noted to have a arterial Doppler which showed occlusion of the left femoral artery. Workup did not reveal any evidence of pulmonary embolus or other intrathoracic pathology. He has EKGs and biomarkers are reassuring in particular given the fact of his continuous duration of chest pain make ACS unlikely. He had markedly diminished blood pressures in his left lower extremity compared with his right. He was not having any at rest claudication but I admonished him thoroughly and strongly regarding the need for vascular surgeon intervention as well as smoking cessation immediately. He acknowledged our discussion. He stated that he will attempt to make transportation available to get to the vascular surgeon. He did not have any evidence at this time that immediate transfer for limb saving procedure was indicated today but that he needed follow-up as soon as possible. He again acknowledged that recommendation. Medical Records I reviewed the patient's medical records. Apparently patient also has of some of left femoral artery occlusion on ultrasound 2 weeks ago. Lab Data 11/24/23 10:06 11/24/23 10:06 Laboratory Results WBC 6.74 10^3/uL (3.29-11.43) 11/24/23 10:06 RBC 5.30 10^6/uL (3.85-5.65) 11/24/23 10:06 Hgb 16.10 g/dL (11.27-16.99) 11/24/23 10:06 Hct 46.8 % (37-53) 11/24/23 10:06 MCV 88.3 fl (82-101) 11/24/23 10:06 MCH 30.4 pg (27-33) 11/24/23 10:06 MCHC 34.4 g/dL (30-55) 11/24/23 10:06 RDW 12.3 % (12.1-15.1) 11/24/23 10:06 Plt Count 273 10^3/cmm (157-399) 11/24/23 10:06 MPV 8.0 fL (7.4-10.4) 11/24/23 10:06 Neut % (Auto) 71.4 % 11/24/23 10:06 Lymph % (Auto) 17.1 % 11/24/23 10:06 Price % (Auto) 8.0 % 11/24/23 10:06 Eos % (Auto) 1.3 % 11/24/23 10:06 Baso % (Auto) 1.3 % 11/24/23 10:06 Neut # (Auto) 4.81 10^3/uL (1.8-7.7) 11/24/23 10:06 Lymph # (Auto) 1.2 10^3/uL (0.8-4.8) 11/24/23 10:06 Price # (Auto) 0.5 10^3/uL (0.2-0.9) 11/24/23 10:06 Eos # (Auto) 0.1 10^3/uL (0.0-0.8) 11/24/23 10:06 Baso # (Auto) 0.1 10^3/uL (0.0-0.1) 11/24/23 10:06 Nucleated RBC % (auto) 0 % 11/24/23 10:06 Nucleated RBCs # 0.0 /100WBC 11/24/23 10:06 Sodium 133 mmol/L (136-145) L 11/24/23 10:06 Potassium 3.5 mmol/L (3.5-5.1) 11/24/23 10:06 Chloride 93 mmol/L (98-107) L 11/24/23 10:06 Carbon Dioxide 25 mmol/L (22-29) 11/24/23 10:06 Anion Gap 18.5 (5-19) 11/24/23 10:06 BUN 9 mg/dL (6-20) 11/24/23 10:06 Creatinine 0.9 mg/dL (0.7-1.2) 11/24/23 10:06 GFR Calculation 91.7 mL/min (90-130) 11/24/23 10:06 Glucose 161 mg/dL (65-115) H 11/24/23 10:06 Calculated Osmolality 278 mOsm/kg (285-295) L 11/24/23 10:06 Calcium 9.7 mg/dL (8.5-10.5) 11/24/23 10:06 Total Bilirubin 0.2 mg/dL (0.15-1.2) 11/24/23 10:06 AST 39 U/L (0-40) 11/24/23 10:06 ALT 54 U/L (0-41) H 11/24/23 10:06 Alkaline Phosphatase 85 U/L (40-130) 11/24/23 10:06 Troponin T Baseline 7 ng/L (0-15) 11/24/23 10:06 Total Protein 7.8 g/dL (6.6-8.7) 11/24/23 10:06 Albumin 4.3 g/dL (3.5-5.2) 11/24/23 10:06 Globulin 3.5 g/dL (1.3-4.6) 11/24/23 10:06 All radiology interpretation(s) finalized by discharge Discharge Plan Discharge Patient Disposition: Home Clinical Impression: Peripheral vascular disease of lower extremity Condition: Stable Prescriptions: No Action Aspir-81 81 mg Tablet,Delayed Release (Dr/Ec) 81 mg PO QAM Nitrostat 0.4 mg Tablet, Sublingual 0.4 mg SUBLINGUAL Q5M PRN (Reason: Chest Pain) Rx Instructions: do not exceed 3 doses per episode Tylenol PM Extra Strength 25-500 mg Tablet 3 tab PO BEDTIME propranolol 20 mg tablet 20 mg PO TID lisinopril-hydrochlorothiazide 20-25 mg tablet 1 tab PO QAM hydrocodone-acetaminophen 5-325 mg tablet 1 tab PO QID PRN (Reason: pain) clopidogrel 75 mg tablet 75 mg PO QAM atorvastatin 40 mg Tablet 40 mg PO BEDTIME 30 Days Qty: 30 1RF clonazepam 1 mg Tablet 1 mg PO TID 15 Days Qty: 45 2RF Discharge Orders: Discharge ED (Routine); Ordered 11/24/23 Ordered By: Iggy Maddox Referrals: Nilesh Hutchinson MD [Primary Care Provider] - Discharge Diet: Low Salt Discharge Activity: Increase activity as tolerated Patient Instructions: Opioid Safety, Pain Management Activity Restrictions/Additional Instructions: As we discussed while you are in the emergency department you have a severe occlusion of the artery in your left leg. This needs attention immediately. You should stop smoking immediately. You should make your way to the vascular surgeon at [place] within the next 24 hours as previously arranged. Not doing so we will certainly jeopardize and potentially cause loss of your extremity and/or your current lifestyle. Coding Level of Care Code ED Wood Carving Machine Operator for Adam Adair
[2023-11-24] MEDS: morphine 4 mg/mL SDV 1 mL IVP (10:12)
[2023-11-24 10:13] LABS: Basophils # 0.1 10^3/uL (0.0-0.1); Basophils % 1.3 %; Eosinophils # 0.1 10^3/uL (0.0-0.8); Eosinophils % 1.3 %; Hematocrit 46.8 % (37-53); Lymphocytes # 1.2 10^3/uL (0.8-4.8); Lymphocytes % 17.1 %; Mean Corpuscular HGB Conc 34.4 g/dL (30-55); Mean Corpuscular Hemoglobin 30.4 pg (27-33); Mean Corpuscular Volume 88.3 fl (82-101); Monocytes # 0.5 10^3/uL (0.2-0.9); Neutrophils # 4.81 10^3/uL (1.8-7.7); Neutrophils % 71.4 %; Nucleated Red Blood Cells % 0 %; Platelet Count 273 10^3/cmm (157-399); Red Cell Distribution Width 12.3 % (12.1-15.1); White Blood Count 6.74 10^3/uL (3.29-11.43)
[2023-11-24 10:37] LABS: Troponin(5th) Baseline 7 ng/L (0-15)
[2023-11-24 10:40] LABS: Alanine Aminotransferase 54 U/L (0-41); Albumin Level 4.3 g/dL (3.5-5.2); Alkaline Phosphatase 85 U/L (40-130); Anion Gap 18.5 (5-19); Aspartate Amino Transferase 39 U/L (0-40); Blood Urea Nitrogen 9 mg/dL (6-20); Calcium 9.7 mg/dL (8.5-10.5); Carbon Dioxide 25 mmol/L (22-29); Chloride 93 mmol/L (98-107); Creatinine Clr Calc Pharmacy 120.5784; Globulin 3.5 g/dL (1.3-4.6); Glomerular Filtration Rate 91.7 mL/min (90-130); Glucose 161 mg/dL (65-115); Osmolality Calculated 278 mOsm/kg (285-295); Potassium 3.5 mmol/L (3.5-5.1); Sodium 133 mmol/L (136-145); Total Bilirubin 0.2 mg/dL (0.15-1.2); Total Protein 7.8 g/dL (6.6-8.7)
[2023-11-24] MEDS: iohexol 350 mg/mL 500 mL Btl (per mL) IV (11:10)
--- NOTE | 2023-11-24 11:43 | ECG_ITS ---
[facility] Test Date: 2023-11-24 Pat Name: Rudy Crawford Department: Room: Gender: Male Char Filter Tank Tender Head: : 1980 Requested By: Iggy Maddox Order Number: [id number] Erika MD: Michael Cabrera M.D. Measurements Intervals [place] Rate: 89 P: 42 VA: 175 QRS: 34 QRSD: 125 T: 45 QT: 368 QTc: 448 Interpretive Statements SINUS RHYTHM MODERATE INTRAVENTRICULAR CONDUCTION DELAY [110+ ms QRS DURATION] Compared to ECG 11/24/2023 09:02:32 Intraventricular conduction delay now present Sinus tachycardia no longer present ST (T wave) deviation no longer present Electronically Signed On 11-24-2023 12:09:37 SUPERVISOR SKI PRODUCTION by Michael Cabrera M.D. [id number]
[2023-11-24] MEDS: HYDROmorphone 1 mg/mL INJ 1 mL IVP (12:18)
== END 2023-11-24 13:17 | disposition home or self-care (01) ==
PROVIDERS: Emergency Provider Emergency Medicine; PCP Family Medicine Adult Medicine
DX: I73.9 Peripheral vascular disease, unspecified (principal); Z79.02 Long term (current) use of antithrombotics/antiplatelets; Z79.82 Long term (current) use of aspirin; F17.210 Nicotine dependence, cigarettes, uncomplicated; I10 Essential (primary) hypertension; Z95.5 Presence of coronary angioplasty implant and graft
CPT/HCPCS: 36415; 71045; 71275; 80053; 84484; 85025; 93005; 96374; 96375; 99285; J1170; J2270; Q9967

== ENCOUNTER 2023-11-25 08:54 | Emergency (ER) | payer BC, MEDICAID, SELFPAY ==
[2023-11-25 08:57] VITALS: BP 140/110; PULSE 108; RESP 18; TEMP 36.8; O2SAT 95; BMI 36.0
--- NOTE | 2023-11-25 09:00 | ECG_ITS ---
[facility] Test Date: 2023-11-25 Pat Name: Rudy Crawford Department: Room: Gender: Male Spectroscopist: : 1980 Requested By: Anil Lala Order Number: [id number] Erika MD: Darya Clark M.D. Measurements Intervals [place] Rate: 107 P: 28 VA: 149 QRS: 36 QRSD: 126 T: 50 QT: 344 QTc: 460 Interpretive Statements SINUS TACHYCARDIA POSSIBLE RIGHT VENTRICULAR CONDUCTION DELAY [RSR (QR) IN V1/V2] ABNORMAL RHYTHM ECG Compared to ECG 11/24/2023 11:18:20 Sinus rhythm no longer present Intraventricular conduction delay no longer present Electronically Signed On 11-25-2023 21:04:57 VIBRATING SCREED OPERATOR by Darya Clark M.D. [email or web address]/[id number]
[2023-11-25 09:35] LABS: Basophils # 0.1 10^3/uL (0.0-0.1); Eosinophils % 0.2 %; Hematocrit 46.3 % (37-53); Lymphocytes # 1.1 10^3/uL (0.8-4.8); Lymphocytes % 18.1 %; Mean Corpuscular HGB Conc 33.7 g/dL (30-55); Mean Corpuscular Hemoglobin 30.3 pg (27-33); Mean Corpuscular Volume 89.9 fl (82-101); Mean Platelet Volume 7.9 fL (7.4-10.4); Monocytes # 1.1 10^3/uL (0.2-0.9); Neutrophils # 3.74 10^3/uL (1.8-7.7); Neutrophils % 61.5 %; Nucleated Red Blood Cells % 0 %; Platelet Count 232 10^3/cmm (157-399); Red Blood Count 5.15 10^6/uL (3.85-5.65); Red Cell Distribution Width 12.6 % (12.1-15.1); White Blood Count 6.07 10^3/uL (3.29-11.43)
--- NOTE | 2023-11-25 09:54 | ED_ITS ---
HPI - Extremity Problem 2 General: Chief complaint: Extremity Injury, Lower Stated complaint: left leg pain Time Seen by Provider: 11/25/23 08:59 Source: patient Mode of arrival: ambulatory History of Present Illness: 43 yo male presents emergency room [place] of left leg pain. This been going on for several weeks to months. He was seen earlier this month and had a arterial Doppler done which showed occlusion however he had old records from [place] for a CTA with runoff that was done on October 13 that showed popliteal artery occlusion on the left with distal reconstitution and left popliteal aneurysm as well as an occlusion of the left posterior tibial artery. He was referred back to outpatients for this. He states today the pain is worse he is not able to get back down to [facility] to have surgery on this. Patient was seen and evaluated yesterday these notes were reviewed as well MD Complaint: extremity pain PFSH ED 2 PFSH: Medical History Alcohol dependence Psychiatric care 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 Prediabetes Erectile dysfunction Chronic pain in left shoulder Had pain present when seen 12/2021 on his first visit and thought he might have a rotator cuff tear then Generalized anxiety disorder with panic attacks Benzodiazepine abuse Dental caries associated with enamel hypomineralization Cigarette smoker Claudication in peripheral vascular disease Since 2017 with walking 100 yards or less Chronic low back pain Torn rotator cuff Hypertension Depression Surgical History History of coronary angioplasty with insertion of stent Family History Other CAD (coronary artery disease) Social History Smoking and tobacco/nicotine status: current every day tobacco/nicotine user cigarettes Packs smoked per day: 2 Alcohol intake: current Alcohol intake frequency: few times a week Substance/Drug Use: never Marital status: Single Number of children: 0 Current occupational status: employed Physical Exam 2 Const: GENERAL APPEARANCE: cooperative and comfortable O RIENTATION/CONSCIOUSNESS: Yes awake, Yes oriented to person, Yes oriented to place and Yes oriented to time HENMT: COMMON NORMALS: normocephalic, atraumatic and hearing grossly normal bilaterally HEAD & SCALP: normocephalic and atraumatic Resp: COMMON NORMALS: normal respiratory effort, No retractions, No use of accessory muscles and clear to auscultation bilaterally AUSCULTATION: clear to auscultation bilaterally Cardio: COMMON NORMALS: regular rate, regular rhythm and No murmurs present (Cardio) RATE: regular rate RHYTHM: regular rhythm GI: COMMON NORMALS: Soft to palpation and No hepatosplenomegaly present A USCULTATION: Yes normoactive bowel sounds PALPATION: Yes Soft to palpation, No Tenderness to palpation present (GI), No Guarding due to palpation present (GI) and Yes No hepatosplenomegaly present Extremity: OTHER: Left leg is warm to the touch with good capillary refill however has increased pain difficult to palpate dorsalis pedis or posterior tibialis pulses Neuro: SENSORIUM/ORIENTATION: Yes oriented to person, Yes oriented to place and Yes oriented to time Skin: COMMON NORMALS: no rashes or lesions noted GENERAL SKIN EXAM: no rashes or lesions noted Course 2 Vital Signs: Vital signs: Vital Signs Temperature 98.3 F 11/25/23 08:57 Pulse Rate 97 11/25/23 12:36 Respiratory Rate 19 H 11/25/23 11:35 Blood Pressure 114/70 11/25/23 12:36 Pulse Oximetry 96 11/25/23 12:36 Oxygen Delivery Me thod Room Air 11/25/23 11:34 MDM - Extremity (Nontraumatic) Medical Decision Making Arterial duplex shows previously noted occlusions but has not changed significantly. Initially because of his complaint of significant increase in pain while we are waiting on testing we did start him on heparin. I was able to discuss this vascular surgeon at [place]. He does not feel based on these findings that patient requires transfer. He was supposed to be seen today as an outpatient. This is for consultation for surgery who recommends patient reschedule the outpatient surgery consultation. Discussed with the patient continue his current medications he will contact vascular surgery at [place] and reschedule the appointment Medical Records I reviewed the patient's medical records. Lab Data I reviewed the patient's lab results. 11/25/23 09:28 11/25/23 09:28 Radiology Impressions Duplex Scan Lower Extremity Artery 11/25/23 09:56 IMPRESSION: Findings are similar to the prior examination again demonstrating occlusion of the distal superficial femoral artery extending into the popliteal artery and posterior tibial artery. Some flow is seen in the dorsalis pedis artery likely due to collaterals. Laboratory Results WBC 6.07 10^3/uL (3.29-11.43) 11/25/23: RBC 5.15 10^6/uL (3.85-5.65) 11/25/23: Hgb 15.60 g/dL (11.27-16.99) 11/25/23: Hct 46.3 % (37-53) 11/25/23: MCV 89.9 fl (82-101) 11/25/23: MCH 30.3 pg (27-33) 11/25/23: MCHC 33.7 g/dL (30-55) 11/25/23: RDW 12.6 % (12.1-15.1) 11/25/23: Plt Count 232 10^3/cmm (157-399) 11/25/23 MPV 7.9 fL (7.4-10.4) 11/25/23: Neut % (Auto) 61.5 % 11/25/23: Lymph % (Auto) 18.1 % 11/25/23: Warrick % (Auto) 18.0 % 11/25/23: Eos % (Auto) 0.2 % 11/25/23: Baso % (Auto) 1.0 % 11/25/23: Neut # (Auto) 3.74 10^3/uL (1.8-7.7) 11/25/23: Lymph # (Auto) 1.1 10^3/uL (0.8-4.8) 11/25/23: Warrick # (Auto) 1.1 10^3/uL (0.2-0.9) H 11/25/23: Eos # (Auto) 0.0 10^3/uL (0.0-0.8) 11/25/23 Baso # (Auto) 0.1 10^3/uL (0.0-0.1) 11/25/23: Nucleated RBC % (auto) 0 % 11/25/23: Nucleated RBCs # 0.0 /100WBC 11/25/23 09:28 PT 14.00 SECONDS (12.1-14.9) 11/25/23 09:28 INR 1.05 (0.8-1.2) 11/25/23 09:28 APTT 29.5 SECONDS (23.9-36.7) 11/25/23 09:28 Sodium 131 mmol/L (136-145) L 11/25/23 09:28 Potassium 3.5 mmol/L (3.5-5.1) 11/25/23 09:28 Chloride 92 mmol/L (98-107) L 11/25/23 09:28 Carbon Dioxide 27 mmol/L (22-29) 11/25/23 09:28 Anion Gap 15.5 (5-19) 11/25/23 09:28 BUN 9 mg/dL (6-20) 11/25/23 09:28 Creatinine 1.0 mg/dL (0.7-1.2) 11/25/23 09:28 GFR Calculation 81.2 mL/min (90-130) L 11/25/23 09:28 Glucose 109 mg/dL (65-115) 11/25/23 09:28 Calculated Osmolality 271 mOsm/kg (285-295) L 11/25/23 09:28 Calcium 9.1 mg/dL (8.5-10.5) 11/25/23 09:28 Total Bilirubin 0.4 mg/dL (0.15-1.2) 11/25/23 09:28 AST 78 U/L (0-40) H 11/25/23 09:28 ALT 90 U/L (0-41) H 11/25/23 09:28 Alkaline Phosphatase 77 U/L (40-130) 11/25/23 09:28 Total Protein 7.6 g/dL (6.6-8.7) 11/25/23 09:28 Albumin 4.3 g/dL (3.5-5.2) 11/25/23 09:28 Globulin 3.3 g/dL (1.3-4.6) 11/25/23 09:28 All radiology interpretation(s) finalized by discharge Discharge Plan Discharge Patient Disposition: Home Clinical Impression: Peripheral arterial disease Condition: Stable Prescriptions: New Lyrica 75 mg capsule 75 mg PO BID Qty: 60 0RF No Action aspirin [Aspir-81] 81 mg Tablet,Delayed Release (Dr/Ec) 81 mg PO QAM nitroglycerin [Nitrostat] 0.4 mg Tablet, Sublingual 0.4 mg SUBLINGUAL Q5M PRN (Reason: Chest Pain) Rx Instructions: do not exceed 3 doses per episode diphenhydramine-acetaminophen [Tylenol PM Extra Strength] 25-500 mg Tablet 3 tab PO BEDTIME propranolol 20 mg tablet 20 mg PO TID lisinopril-hydrochlorothiazide 20-25 mg tablet 1 tab PO QAM clopidogrel 75 mg tablet 75 mg PO QAM atorvastatin 40 mg Tablet 40 mg PO BEDTIME 30 Days Qty: 30 1RF clonazepam 1 mg Tablet 1 mg PO TID 15 Days Qty: 45 2RF Discharge Orders: Discharge ED (Routine); Ordered 11/25/23 Ordered By: Anil Senior Referrals: Nilesh Hutchinson MD [Primary Care Provider] - Patient Instructions: Opioid Safety, Pain Management Coding Level of Care Code ED Salad Counter Attendant for Adam Adair
--- NOTE | 2023-11-25 09:56 | USR_ITS ---
PROCEDURE INFORMATION: Exam: US Duplex Left Lower Extremity Arteries Or Arterial Bypass Grafts Exam date and time: 11/25/2023 9:40 AM Age: 43 years old Clinical indication: Pain; Leg, lower; Left TECHNIQUE: Imaging protocol: Left Real-time duplex scan of the arteries or arterial bypass grafts of the left lower extremity with 2-D rodriguez scale, color Doppler flow and spectral waveform analysis. Images documented and saved. 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 PSV measurements in the common femoral artery is 80 cm/sec, proximal superficial femoral artery 58 cm/sec and mid superficial femoral artery 42 cm/sec. The posterior tibial artery is again noted to be occluded. The anterior tibial and peroneal arteries were not evaluated. Flow is seen in the dorsalis pedis artery with a PSV of 34 cm/sec. US/CV arterial duplex [facility] [id number] IMPRESSION: Findings are similar to the prior examination again demonstrating occlusion of the distal superficial femoral artery extending into the popliteal artery and posterior tibial artery. Some flow is seen in the dorsalis pedis artery likely due to collaterals.
[2023-11-25 10:07] LABS: Alanine Aminotransferase 90 U/L (0-41); Albumin Level 4.3 g/dL (3.5-5.2); Alkaline Phosphatase 77 U/L (40-130); Anion Gap 15.5 (5-19); Aspartate Amino Transferase 78 U/L (0-40); Blood Urea Nitrogen 9 mg/dL (6-20); Calcium 9.1 mg/dL (8.5-10.5); Carbon Dioxide 27 mmol/L (22-29); Chloride 92 mmol/L (98-107); Creatinine Clr Calc Pharmacy 108.5205; Globulin 3.3 g/dL (1.3-4.6); Glomerular Filtration Rate 81.2 mL/min (90-130); Glucose 109 mg/dL (65-115); Osmolality Calculated 271 mOsm/kg (285-295); Potassium 3.5 mmol/L (3.5-5.1); Sodium 131 mmol/L (136-145); Total Bilirubin 0.4 mg/dL (0.15-1.2); Total Protein 7.6 g/dL (6.6-8.7)
[2023-11-25 10:18] LABS: INR 1.05 (0.8-1.2)
[2023-11-25 10:19] LABS: Partial Thromboplastin Time 29.5 SECONDS (23.9-36.7)
[2023-11-25 11:00] VITALS: BP 142/95; PULSE 106; O2SAT 95
[2023-11-25] MEDS: heparin 5,000 unit/mL INJ 1 mL IV (11:25)
[2023-11-25] MEDS: heparin drip 25,000 UNIT/500 ML PREMIX 29.2100000000000009 UNIT IV (11:28)
[2023-11-25 11:34] VITALS: BP 142/95; PULSE 107; RESP 22; O2SAT 96
[2023-11-25 11:35] VITALS: RESP 19; O2SAT 95
[2023-11-25] MEDS: morphine 4 mg/mL SDV 1 mL IVP (11:35)
[2023-11-25 12:36] VITALS: BP 114/70; PULSE 97; O2SAT 96
== END 2023-11-25 13:48 | disposition home or self-care (01) ==
PROVIDERS: Emergency Provider Family Medicine; PCP Family Medicine Adult Medicine
DX: I73.9 Peripheral vascular disease, unspecified (principal); Z79.02 Long term (current) use of antithrombotics/antiplatelets; Z79.82 Long term (current) use of aspirin; F17.210 Nicotine dependence, cigarettes, uncomplicated; I10 Essential (primary) hypertension; Z95.5 Presence of coronary angioplasty implant and graft
CPT/HCPCS: 36415; 80053; 85025; 85610; 85730; 93005; 93926; 96365; 96366; 96375; 99285; J1644; J2270

== ENCOUNTER 2023-12-01 18:31 | Inpatient (IN) | payer BC, MEDICAID, SELFPAY ==
[2023-12-01 18:32] VITALS: BP 151/100; PULSE 105; RESP 18; TEMP 36.9; O2SAT 96; BMI 36.8
[2023-12-01 18:51] LABS: Basophils % 0.4 %; Eosinophils # 0.2 10^3/uL (0.0-0.8); Eosinophils % 1.9 %; Hematocrit 46.1 % (37-53); Lymphocytes # 3.6 10^3/uL (0.8-4.8); Lymphocytes % 42.9 %; Mean Corpuscular HGB Conc 34.5 g/dL (30-55); Mean Corpuscular Hemoglobin 30.3 pg (27-33); Mean Corpuscular Volume 87.8 fl (82-101); Mean Platelet Volume 8.4 fL (7.4-10.4); Monocytes # 0.4 10^3/uL (0.2-0.9); Monocytes % 5.1 %; Neutrophils # 4.17 10^3/uL (1.8-7.7); Neutrophils % 49.1 %; Nucleated Red Blood Cells % 0 %; Platelet Count 316 10^3/cmm (157-399); Red Blood Count 5.25 10^6/uL (3.85-5.65); Red Cell Distribution Width 12.4 % (12.1-15.1); White Blood Count 8.47 10^3/uL (3.29-11.43)
--- NOTE | 2023-12-01 18:52 | W.ED.PSYCHS ---
HPI - Psych General: Chief Complaint: Psychiatric Symptoms Stated Complaint: SI Time Seen by Provider: 12/01/23 18:32 Source: patient and EMS Mode of arrival: EMS Limitations: no limitations History of Present Illness: 43-year-old male who was kicked out of a homeless group home states he has no hope he wants to kill himself states he is actively suicidal he has been admitted here for the same he denies any worsening improving factors. Associated symptoms: Reports depression and suicidal ideation Review of Systems Const: Denies: fever(s), chills, body aches or change in appetite ENMT: Denies: throat pain or dental pain Card: Denies: chest pain Resp: Denies: dyspnea GI: Denies: abdominal pain, nausea, vomiting or diarrhea Musc: Denies: neck pain or back pain Skin/Breast: Denies: rash Neuro: Denies: headache(s) Psych: Reports: depression and suicidal ideation PFSH ED PFSH: Medical History Alcohol dependence Psychiatric care 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 Prediabetes Erectile dysfunction Chronic pain in left shoulder Had pain present when seen 12/2021 on his first visit and thought he might have a rotator cuff tear then Generalized anxiety disorder with panic attacks Benzodiazepine abuse Dental caries associated with enamel hypomineralization Cigarette smoker Claudication in peripheral vascular disease Since 2018 with walking 100 yards or less Chronic low back pain Torn rotator cuff Hypertension Depression Surgical History History of coronary angioplasty with insertion of stent Family History Other CAD (coronary artery disease) Social History Smoking and tobacco/nicotine status: current every day tobacco/nicotine user cigarettes Packs smoked per day: 2 Alcohol intake: current Alcohol intake frequency: few times a week Substance/Drug Use: never Marital status: Single Number of children: 0 Current occupational status: employed Physical Exam Const: COMMON NORMALS: no acute distress, patient oriented x3 and healthy appearing HENMT: COMMON NORMALS: normocephalic and atraumatic HEAD & SCALP: normocephalic and atraumatic Eye: COMMON NORMALS: Equal, round and reactive pupils present and EOMs intact bilaterally PUPIL: Yes Equal, round and reactive pupils present Neck/C-Spine: COMMON NORMALS: full ROM and supple Chest: COMMONS NORMALS: normal inspection of the chest Resp: COMMON NORMALS: normal respiratory effort Cardio: COMMON NORMALS: regular rate, regular rhythm and No murmurs present (Cardio) RATE: regular rate RHYTHM: regular rhythm Extremity: COMMON NORMALS: normal to inspection and full ROM Neuro: COMMON NORMALS: patient oriented x3, moves all extremities and no focal motor deficits Psych: COMMON NORMALS: mental status grossly normal, Normal thought process present and cooperative MOOD & AFFECT: Yes depressed mood THOUGHT PROCESS: Normal thought process present THOUGHT CONTENT: Yes Suicidality present Skin: COMMON NORMALS: no rashes or lesions noted and no wounds GENERAL SKIN EXAM: no rashes or lesions noted Course Vital Signs: Vital signs: Vital Signs Temperature 98.4 F 12/01/23 18:32 Pulse Rate 105 H 12/01/23 18:32 Respiratory Rate 18 12/01/23 18:32 Blood Pressure 151/100 12/01/23 18:32 Pulse Oximetry 96 12/01/23 18:32 Oxygen Delivery Me thod Room Air 12/01/23 18:32 MDM - Psych Medical Decision Making Patient presents here with suicidal ideations I spoke to Dr. Wagner will admit patient is voluntary. Medical Records I reviewed the patient's medical records. Lab Data I reviewed the patient's lab results. 12/01/23 18:42 12/01/23 18:42 Laboratory Results WBC 8.47 10^3/uL (3.29-11.43) 12/01/23 18:42 RBC 5.25 10^6/uL (3.85-5.65) 12/01/23 18:42 Hgb 15.90 g/dL (11.27-16.99) 12/01/23 18:42 Hct 46.1 % (37-53) 12/01/23 18:42 MCV 87.8 fl (82-101) 12/01/23 18:42 MCH 30.3 pg (27-33) 12/01/23 18:42 MCHC 34.5 g/dL (30-55) 12/01/23 18:42 RDW 12.4 % (12.1-15.1) 12/01/23 18:42 Plt Count 316 10^3/cmm (157-399) 12/01/23 18:42 MPV 8.4 fL (7.4-10.4) 12/01/23 18:42 Neut % (Auto) 49.1 % 12/01/23 18:42 Lymph % (Auto) 42.9 % 12/01/23 18:42 Bucks % (Auto) 5.1 % 12/01/23 18:42 Eos % (Auto) 1.9 % 12/01/23 18:42 Baso % (Auto) 0.4 % 12/01/23 18:42 Neut # (Auto) 4.17 10^3/uL (1.8-7.7) 12/01/23 18:42 Lymph # (Auto) 3.6 10^3/uL (0.8-4.8) 12/01/23 18:42 Bucks # (Auto) 0.4 10^3/uL (0.2-0.9) 12/01/23 18:42 Eos # (Auto) 0.2 10^3/uL (0.0-0.8) 12/01/23 18:42 Baso # (Auto) 0.0 10^3/uL (0.0-0.1) 12/01/23 18:42 Nucleated RBC % (auto) 0 % 12/01/23 18:42 Nucleated RBCs # 0.0 /100WBC 12/01/23 18:42 Sodium 135 mmol/L (136-145) L 12/01/23 18:42 Potassium 3.2 mmol/L (3.5-5.1) L 12/01/23 18:42 Chloride 94 mmol/L (98-107) L 12/01/23 18:42 Carbon Dioxide 28 mmol/L (22-29) 12/01/23 18:42 Anion Gap 16.2 (5-19) 12/01/23 18:42 BUN 9 mg/dL (6-20) 12/01/23 18:42 Creatinine 0.7 mg/dL (0.7-1.2) 12/01/23 18:42 GFR Calculation 122.5 mL/min (90-130) 12/01/23 18:42 Glucose 229 mg/dL (65-115) H 12/01/23 18:42 Calculated Osmolality 286 mOsm/kg (285-295) 12/01/23 18:42 Calcium 9.2 mg/dL (8.5-10.5) 12/01/23 18:42 Total Bilirubin 0.4 mg/dL (0.15-1.2) 12/01/23 18:42 AST 35 U/L (0-40) 12/01/23 18:42 ALT 56 U/L (0-41) H 12/01/23 18:42 Alkaline Phosphatase 85 U/L (40-130) 12/01/23 18:42 Total Protein 7.6 g/dL (6.6-8.7) 12/01/23 18:42 Albumin 4.2 g/dL (3.5-5.2) 12/01/23 18:42 Globulin 3.4 g/dL (1.3-4.6) 12/01/23 18:42 Salicylates 1.0 mg/dL (3-10) L 12/01/23 18:42 Urine Opiates Screen Negative ng/mL (Negative) 12/01/23 19:05 Acetaminophen < 5.0 ug/mL (10-30) L 12/01/23 18:42 Ur Barbiturates Screen Negative ng/mL (Negative) 12/01/23 19:05 Ur Phencyclidine Scrn Negative ng/mL (Negative) 12/01/23 19:05 Ur Amphetamines Screen Negative ng/mL (Negative) 12/01/23 19:05 U Benzodiazepines Scrn Negative ng/mL (Negative) 12/01/23 19:05 Urine Cocaine Screen Negative ng/mL (Negative) 12/01/23 19:05 U Marijuana (THC) Screen Negative ng/mL (Negative) 12/01/23 19:05 Ethyl Alcohol < 10 mg/dL (0-10) 12/01/23 18:42 No radiology studies performed this visit Discharge Plan Discharge Patient Disposition: Xfer Psychiatric Hosp Clinical Impression: Suicidal ideation Condition: Stable Coding Level of Care Code ED Psychological Operations Specialist for Adam Adair
[2023-12-01] MEDS: LORazepam 2 mg/mL INJ 10 mL MDV 1 MG IM (19:15)
[2023-12-01 19:33] LABS: Acetaminophen < 5.0 ug/mL (10-30); Alanine Aminotransferase 56 U/L (0-41); Albumin Level 4.2 g/dL (3.5-5.2); Alcohol Level < 10 mg/dL (0-10); Alkaline Phosphatase 85 U/L (40-130); Anion Gap 16.2 (5-19); Aspartate Amino Transferase 35 U/L (0-40); Blood Urea Nitrogen 9 mg/dL (6-20); Calcium 9.2 mg/dL (8.5-10.5); Carbon Dioxide 28 mmol/L (22-29); Chloride 94 mmol/L (98-107); Creatinine Clr Calc Pharmacy 156.7573; Globulin 3.4 g/dL (1.3-4.6); Glomerular Filtration Rate 122.5 mL/min (90-130); Glucose 229 mg/dL (65-115); Osmolality Calculated 286 mOsm/kg (285-295); Potassium 3.2 mmol/L (3.5-5.1); Sodium 135 mmol/L (136-145); Total Bilirubin 0.4 mg/dL (0.15-1.2); Total Protein 7.6 g/dL (6.6-8.7)
[2023-12-01 19:52] VITALS: BP 151/108; PULSE 100; RESP 20; TEMP 36.9; O2SAT 98
--- NOTE | 2023-12-01 19:54 | PC.NURSE ---
Report called to Marie MCCLELLAND in [facility]. All questions and concerns addressed at time of report.
[2023-12-01 20:05] LABS: Amphetamines Screen Urine Negative (Negative); Barbiturates Screen Urine Negative (Negative); Benzodiazepines Screen Urine Negative (Negative); Cocaine Screen Urine Negative (Negative); Opiate Screen Urine Negative (Negative); PCP Screen Urine Negative (Negative); THC Screen Urine Negative (Negative)
[2023-12-01] MEDS: acetaminophen 325 mg Tablet 650 MG PO (20:51)
--- NOTE | 2023-12-01 20:52 | PC.NURSE ---
Patient was transported to [facility] room 128-1 with all paperwork and belongings.
[2023-12-01] MEDS: hyDROXYzine 25 mg Capsule 50 MG PO (21:00)
[2023-12-02 06:00] VITALS: BP 121/78; PULSE 91; RESP 18; TEMP 36.8; O2SAT 95
[2023-12-02] MEDS: propranolol 20 mg Tablet PO ×3 (08:15→20:13)
[2023-12-02] MEDS: aspirin 81 mg Chew Tablet PO (11:07)
[2023-12-02] MEDS: lisinopril 20 mg Tablet PO (11:08)
[2023-12-02] MEDS: hydroCHLOROthiazide 25 mg Tablet PO (11:08)
[2023-12-02] MEDS: clopidogrel 75 mg Tablet PO (11:19)
[2023-12-02] MEDS: hyDROXYzine 25 mg Capsule 50 MG PO (11:44)
[2023-12-02] MEDS: acetaminophen 325 mg Tablet 650 MG PO (13:50)
--- NOTE | 2023-12-02 13:53 | PC.NURSE ---
pt up at nurses station requesting pain medication for left leg. pt requesting klonopin for anxiety. administered tylenol for pain.
[2023-12-02] MEDS: CLONazepam 1 mg Tablet PO ×2 (13:59→20:12)
[2023-12-02 14:00] VITALS: BP 141/101; PULSE 84; RESP 14; TEMP 36.6; O2SAT 97
--- NOTE | 2023-12-02 15:05 | W.PM.NPUH&PS ---
Providers/Chief Complaint Admitting Physician: Gigi Wagner MD Primary Care Provider: Nilesh Hutchinson MD Chief Complaint: SI HPI N[facility] History of Present Illness Rudy Crawford is a 43 year old male who presents with suicidal ideation to the emergency department stating that he was depressed and tired and significant pain. He reports that he has not been using alcohol. He does report that he had missed his appointment for his surgeon to manage his peripheral vascular disease yesterday. He reported that he had gone to [facility] but was kicked out because he had not given up all of his medications. He reports that he has not been abusing any alcohol nor has you been abusing his Klonopin. He has reported that he continues to be tired of being homeless and states that he has had thoughts of hurting himself with plans to run into traffic. He had reported having problems with memory and concentration. He reports chronic pain issues in his back as well. The patient had stated that he had tried to remain hopeful about his girlfriend finding him in her place but believes that this will not be available until December. He reports low energy and low motivation. He reports having more frequent crying episodes. He states that his medications for depression had not been helpful so he had discontinued them. He reports no substantial changes since his last hospitalization. NPU Discharge Summary from 11/15/23 Diagnoses at Discharge Discharge Diagnosis (1) Major depressive disorder: Status: Acute (2) Panic disorder: Status: Inactive (3) Alcohol dependence: Status: Acute (4) Generalized anxiety disorder with panic attacks: Status: Acute Reason for Visit SI Brief History: History of Present Illness Rudy Crawford is a 43 year old male Admitted with suicidal ideation after presenting to the emergency department stating that he wished to jump out in front of a car. The patient had reported that he had been in a psychiatric facility at [facility] for the past week and was discharged on on new psychiatric medications. He had complained that he had not been able to urinate since starting his Seroquel. He reports that he has been more depressed currently. He reports that he has continued panic attacks. He reports that he has continued feelings of hopelessness and worthlessness. He reports that he has not used any illicit drugs or alcohol in over 3 months now. He reports that his Klonopin has been lowered from 6 mg/day to 3 mg/day over the last 6 weeks. He reports that he has been attempting to work but states that it has not been successful recently. He reports that he was previously staying in a fdc in [place] but states that he has been homeless for weeks. Inpatient psychiatric history: Multiple inpatient stays over the last year. Outpatient psychiatric history: He has recently started with outpatient therapy and medication management at the [facility]. Current medications: Klonopin 1 mg 3 times a day, Plavix 75 mg daily, Cymbalta 60 mg twice a day, Lamictal 75 mg daily, lisinopril, nitroglycerin, propranolol 20 mg 3 times a day, Seroquel 300 mg at night, hydrocodone 1 tablet 4 times a day for pain Medical history: As previous with history of prediabetes, erectile dysfunction, left shoulder pain, peripheral vascular disease with a history of carotid Stenosis, 11/10/23:Doppler of the left lower extremity showed complete occlusion of the distal superficial femoral artery Surgical history: Rotator cuff surgery Allergies: codeine, toradol, trazodone Drug and alcohol hx: sober off alcohol for 4 months, Social Hx: see below, no new changes. Discharge summary from [facility] on 08/18/23 Diagnoses at Discharge Discharge Diagnosis (1) Major depressive disorder: Status: Acute (2) Panic disorder: Status: Inactive (3) Alcohol dependence: Status: Acute (4) Generalized anxiety disorder with panic attacks: Status: Acute Reason for Visit Homicidal Brief History: History of Present Illness Rudy Crawford is a 43 year old male who presented to the emergency department with the following report: Chief Complaint: Psychiatric Symptoms Stated Complaint: Homicidal Time Seen by Provider: 08/13/23 14:05 Source: patient Mode of arrival: ambulatory Limitations: no limitations History of Present Illness: ? Patient is a 43-year-old male presents to ED today stating he is homicidal towards drug addicts and meth heads .? He states if one more meth head talks to him or knocks on his door then he is going to hurt them. No specific plan. Denies suicidal ideations. No psychosis symptoms. Recently admitted to [facility] earlier this month. Reports being drug free for 8 years. Does have a history of alcohol abuse. ? MD complaint: other (homicidal ideation) Onset (ago): day(s) Duration: constant Relieving factors: none Context: significant life stressor Associated psychiatric symptoms: homicidal ideation Associated symptoms: Reports homicidal ideation; Deny auditory hallucinations, visual hallucinations, depression or suicidal ideation Treatments prior to arrival: none He was admitted to the neuropsychiatric unit for definitive treatment of those issues.? He is known to this keno writer/runner through past inpatient hospitalization.? His last psychiatric hospitalization ended 07/30/2023 and an excerpt of that summary is included below for context and the fact that there have been no substantive changes.? It is noteworthy that a week later on 08/06/2023 he was admitted to the medical unit where some cardiac disease was noted and plans for continued follow-up were executed.? He was discharged on 08/12/2023 from that and he returns now reporting being overwhelmed at home secondary to meth heads knocking on his door etc.? He endorsed homicidality towards these individuals and we had a long discussion about the legal implications of him acting out in an aggressive way.? We also had a long discussion about concerns related to malingering as well as concerns that this may have something to do with him not having enough Klonopin available even though he should have extra given the hospitalization.? He categorically denies that this has anything to do with the Klonopin.? We discussed moving forward with a plan to taper the Klonopin by 0.5 mg every 2 weeks such that he will be on 3-1/2 mg total daily for the next 2 weeks.? We discussed this being a short hospitalization and a plan for him to reconsider where he is living if he can get along with the people there. Per his 07/30/2023 [facility] inpatient psychiatric discharge summary: Discharge Diagnosis (1) Major depressive disorder:? ? ? Status: Acute (2) Panic disorder:? ? ? Status: Inactive (3) Alcohol dependence:? ? ? Status: Acute (4) Generalized anxiety disorder with panic attacks:? ? ? Status: Acute Reason for Visit Reason for Visit: ? psych eval? Brief History: History of Present Illness Rudy Crawford is a 43 year old male recently discharged last month from the neuropsychiatric unit who presented to the emergency room complaining of suicidal ideation and continued depression.? The patient had stated that he had been discharged from [place] yesterday and reports that over the past 4 days his Klonopin had been decreased from 6 mg a day to 2 mg a day within a short period of time.? He reports some irritability and agitation since this reduction.? He had denied having used alcohol for the past few weeks.? He reports that he has been homeless.? He had reported that he had been struggling with panic attacks as well.? Patient had stated that he has been feeling more hopeless and worthless.? He reports sleep continuity disruption.? He had reported that he was hopeful of finding a fdc in the nearby area.? He reports no acute changes otherwise and stated above. Current medications: gabapentin, aspirin, lisinopril, propranolol, quetiapine, trazodone, klonopin Previous discharge summary from [facility] on 05/23/23 History of Present Illness Rudy Crawford is a 43 year old male who presented to the emergency department with the following report: Chief Complaint: Psychiatric Symptoms Stated Complaint: mag Time Seen by Provider: 05/22/23 16:58 History of Present Illness: Presents to the ER with complaints of suicidal ideations.? Patient said the world just coming down around him.? Last week patient lost his job, got really really drunk and decided to check himself into rehab down at [place] spent 3 days they are in when he got out felt that it he need just needed more time to help.? Patient is having bad thoughts of suicide.? Patient was on a bridge today and thought of jumping.? Since patient lost his job and is planning on moving in with his girlfriend and having major life stressors. He was admitted to the neuropsychiatric unit for the definitive treatment of those issues.? Patient presented today reporting that things are very stressed he reports that his anxiety is out of control and that he lost his job.? He reports that he is temporarily homeless and that he is moving into a new place next week with some woman that he has a relationship with.? He endorsed having suicidal thoughts but reports those have diminished.? He endorses a history of having anxiety helps with Klonopin.? He reports that his anxiety gets so [id number] that he has chest pains and feels like he might have a heart attack.? He endorses maybe having a cardiac history.? We reviewed his previous hospitalization from August of last year and an excerpt of that stay is included below for context and his report of limited/no substantive changes since that today.? Outside of his current living arrangement issues.? We discussed possible medications for his anxiety and he was very focused on not changing the Klonopin which we discussed that 2 mg p.o. 3 times daily is a very high dose.? He reports it has been very effective but cannot explain why he was always anxious if it is very effective.? He is not interested in any medications like SSRIs etc. reporting he knows what works.? He had initially talked about leaving AMA but then reported he would stay but he seemed quite ambivalent about this stay overall. Per his 09/25/2022 [facility] inpatient psychiatric discharge summary: Discharge Diagnosis (1) Panic disorder:? ? ? Status: Acute (2) Alcohol dependence:? ? ? Status: Acute (3) Benzodiazepine abuse:? ? ? Status: Acute Reason for Visit Reason for Visit: ? Suicidal ideation? Brief History: History of Present Illness Rudy Crawford is a 42 year old male who had presented to his primary care nurse on 09/22/2020 2 in the morning requesting treatment for alcohol withdrawal.? He reports that he wishes to stop his consumption of alcohol and stated that he was having withdrawal symptoms as he had reported having last consumed alcohol on the night of 09/21/2022.? He had reported having consumed a gallon of fireball whiskey and reports having consumed a case of beer on a daily basis.? He reports his consumption of alcohol has been increasing since he was taken abruptly off of his prescribed Klonopin of 2 mg/day.? He had reported a previous history of panic attacks and considerable anxiety that had been worsening his cardiac problems.? He states that he had not been prescribed Klonopin for over a month.? He endorses a past history of withdrawal seizures although it is uncertain as to whether that was associated with withdrawal from benzodiazepines or alcohol.? He had acknowledged no depression but states that his panic attacks have been more frequent over the past few months.? He reports an extended history of chest pain shortness of breath difficulty swallowing and feeling like he is going to .? He reports that these panic attacks occur without triggers frequently. Current medications: gabapentin 300mg bid, hydrochlorothiazide/lisinopril: 25mg/20mg, hydroxyzine 25mg bid Previous admission on 06/22/2022 at NPU: Rudy Crawford is a 42 year old single white male with a history of panic attacks coronary artery disease and hypertension who reports to the emergency department with suicidal ideation with a plan to jump off of a bridge.? He had reported that he had been feeling more depressed and reported uncontrolled anxiety over the past 3 months since he had ran out of his Klonopin 1 mg twice a day.? He had reported that he has had chronic panic attacks for many years with unknown triggered panic attacks lasting approximately 40 minutes with associated chest pain shortness of breath numbing and tingling in his fingers and difficulty with breathing.? He reports that his panic attacks have led him to the emergency department multiple times with complaints of chest pain.? He reports that he had a heart attack a few years ago and he has had these panic attacks since that time.? The patient reports being burdened by anxiety over the past few months.? He reports that he had been unable to receive his Klonopin in [place], [place] where he had moved.? He reports that he had recently moved back to the area and had not been able to see his primary care physician yet to get back on his Klonopin.? The patient had reported diminished energy low motivation and depressed mood for the past month.? He had endorsed having suicidal thoughts.? He denied any psychotic symptoms.? He denied any history of manic symptoms.? He had reported a long history of chronic worry since his heart attack occurred. Past psychiatric history: Patient has a history of 1 inpatient hospitalization 2 years ago for suicidal ideation at [facility] in [facility].? He had reported no history of psychotherapy but reports a history of having been treated for panic attacks and depression with medication trials on Lexapro and xanax.? He also reported a history of having been treated for opioid abuse with a history of having been in methadone clinic for a few years having last used methadone 6 years ago. Medical history: Chronic lower back pain peripheral vascular disease with claudication history of carotid stenosis history of hypertension, HTN Surgical history he has a history of placement of stent in the coronary artery he has a history of repair of a torn rotator cuff Allergies: Toradol Medications: Klonopin 1 mg twice a day aspirin 81 mg in the morning clonidine 0.1 mg twice a day nitroglycerin as needed Drug and alcohol history: He reports having begun use of opiates at the age of [age].? He had reported last use of opiates for treating pain few days ago.? He had reported a past history of methadone treatment but reports no substance abuse inpatient or rehabilitation in the past.? He had reported a past history of alcohol abuse but reports that he has not been drinking recently.? He denies any history of benzodiazepine misuse. Family psychiatric history: alcohol abuse-father Social History: Patient was born and raised in [place].? He is currently living in [place].? He has never been and has no children.? He was raised by his biological parents and is the youngest of 5.? 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 He denies any significant history of trauma.? He denies any history of legal issues. Update: Patient had endorsed recently having been hospitalized at [facility] in late July in an attempt to help with detoxification off of benzodiazepines and alcohol.? He reports that he had left and intensive inpatient rehabilitation facility in [place] in early August 2022.? His living situation is also changed he is currently staying with a friend near [place]. Hospital Course He slowly acclimated to the individual, group and milieu therapies provided.? A growing theme in his visits seems to be his Klonopin.? His last hospitalization he came in left on the same day in the drive for leaving appeared to be Klonopin.? He began to leave [place] at 1 point and the issue of note was Klonopin.? Prior to discharge this keno writer/runner reached out to his current prescriber who identified that he would like him to be on the lower dose but seemed very hesitant to be the dinkey driver of that change.? We agreed to drop him to 1 mg p.o. 4 times daily from the 2 mg p.o. 3 times daily.? He was given a 2-week prescription that was going to be active in 2 weeks as he left with 56 1 mg tablets that would serve him for 4 times daily for the next 2 weeks.? Therefore he had a month of medication in his outpatient provider agreed that he would see him and consider dropping it down to 3.5 mg daily otherwise he refused the Vivitrol injection reporting that he still wants to drink some and we identified that being an issue like Klonopin is a bad idea.? He was also discharged on Celexa 20 mg daily Neurontin 600 mg p.o. twice daily.? He was working with the social work team for possible treatment options but was very resistant to the options that were identified.? He had modest improvement and he was able to contract for safety outside of the hospital prior to discharge.? During the hospitalization, patient had routine laboratory studies which were within normal limits except for few outliers.? Additionally there was a general medical evaluation which was also within normal limits and revealed no new acute processes. ?At the time of discharge, he denied psychosis or lethality.? Mood and anxiety were well managed.? Patient endorsed a plan to avoid all drugs of abuse and follow-up with the aftercare recommendations of the treatment team.? Patient was evaluated and deemed to be absent credible lethality, and achieved a maximum benefit from an inpatient hospitalization, so was discharged. Hospital Course Hospital Course During the hospitalization, the patient had routine laboratory studies which were within normal limits except for a few outliers.? Additionally, there was a general medical evaluation which was also within normal limits and revealed no new acute processes.? At the time of discharge, lethality was denied and psychosis was resolving.? Mood and anxiety were well managed.? The patient endorsed a plan to avoid all drugs of abuse and follow up with the aftercare recommendations of the treatment team.? The patient was evaluated and deemed to be absent credible lethality and had achieved the maximum benefit from an inpatient hospitalization, and so was discharged.? Seroquel was discontinued due to concerns that it worsened the patient's urinary retention. Another CV arterial duplex of the lower extremity revealed arterial occlusion and it was similar to a recent study and the patient was planning on following up with his Vascular Surgeon Dr. Garett Benton as previously done. Meds NPU Home Medications Medication Instructions Recorded Confirmed Last Taken Type lisinopril 20 1 tab PO QAM 11/10/23 12/01/23 11/25/23 History mg-hydrochlorothiazide 25 mg tablet propranolol 20 mg tablet 20 mg PO TID 11/10/23 12/01/23 11/25/23 History atorvastatin 40 mg tablet 40 mg PO BEDTIME 30 days #30 tabs 11/12/23 12/01/23 11/25/23 Rx clonazepam 1 mg tablet 1 mg PO TID 15 days #45 tabs 11/15/23 12/01/23 11/25/23 Rx nitroglycerin 0.4 mg sublingual 0.4 mg sublingual Q5M PRN Chest 11/24/23 12/01/23 Unknown History tablet (Nitrostat) Pain pregabalin 75 mg capsule (Lyrica) 75 mg PO BID #60 caps 11/25/23 12/01/23 Unknown Rx quetiapine 300 mg tablet (Seroquel) 300 mg PO BEDTIME 12/01/23 12/01/23 Unknown History Allergies Allergy/AdvReac Type Severity Reaction Status Date / Time codeine Allergy ALGY-Hives Verified 11/24/23 09:38 ketorolac [From Toradol] Allergy ALGY-Hives Verified 11/24/23 09:38 trazodone Allergy ALGY-Difficulty Verified 11/24/23 09:38 Swallowing PFSH NPU PFSH: Medical History Alcohol dependence Psychiatric care 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 Prediabetes Erectile dysfunction Chronic pain in left shoulder Had pain present when seen 12/2021 on his first visit and thought he might have a rotator cuff tear then Generalized anxiety disorder with panic attacks Benzodiazepine abuse Dental caries associated with enamel hypomineralization Cigarette smoker Claudication in peripheral vascular disease Since 2017 with walking 100 yards or less Chronic low back pain Torn rotator cuff Hypertension Depression Surgical History History of coronary angioplasty with insertion of stent Family History Other CAD (coronary artery disease) Social History Smoking and tobacco/nicotine status: current every day tobacco/nicotine user cigarettes Packs smoked per day: 2 Alcohol intake: current Alcohol intake frequency: few times a week Substance/Drug Use: never Marital status: Single Number of children: 0 Current occupational status: employed Mental Status Exam MSE Comments: This is an obese white male in hospital scrubs with adequate grooming and fair eye contact. There is no evidence of any abnormal involuntary motor movements tics or tremors appreciated. He was cooperative with exam in moderate distress. Speech was normal in rate, rhythm and prosody. Mood was described as depressed. His affect remained flat. Thought process was linear and organized. Thought content: Patient endorsed suicidal ideation with plan to run into traffic and denies homicidal ideation, there were no delusions reported or noted, He denied any auditory or visual hallucinations. Attention and concentration appeared intact and memory appeared mostly reliable but none were formally tested. He is alert and oriented x3. Insight, judgment and impulse control are limited versus impaired. He had reported significant pain in his leg. Vitals/I&O/Wt Last Vital Signs Temp 98.2 F 12/02/23 06:00 Pulse 91 12/02/23 06:00 Resp 18 12/02/23 06:00 BP 121/78 12/02/23 06:00 Pulse Ox 95 12/02/23 06:00 O2 Del Method Room Air 12/02/23 06:00 Weight last 48 hrs Weight 106.594 kg Data NPU 12/01/23 18:42 12/01/23 18:42 A&P Assessment and plan (1) Major depressive disorder: (2) Panic disorder: (3) Alcohol dependence: (4) Generalized anxiety disorder with panic attacks: Plan Patient is a 43-year-old white male admitted with suicidal ideation, worsening depression currently sober for last 4 months but homeless with concern about claudication as well. 1. Continue Klonopin 1mg tid routinely. Hold on cymbalta as patient requesting new antidepressant 2.? Encourage individual, group and milieu therapy 3.? Continue q-15 minute check for safety 4.? Recommend sober living treatment at the highest level of care to which the patient is willing to commit. 5. Med consult regarding L leg pain. Involuntary Hold Information 96 Hour Hold: 96 Hour Involuntary Admission: No Attestations NPU Medical Necessity Statement*: Inpatient hospitalization is medically necessary and clinically appropriate intervention at this time. We will monitor medications and make changes as indicated. Patient will be in the hospital for over 2 midnights. His likely length of stay is 3 to 5 days. Coding Level of Care Code Acute Code for [facility] Fwd Diagnoses Major depressive disorder F32.9 Panic disorder F41.0 Alcohol dependence F10.20 Generalized anxiety disorder with panic attacks F41.1; F41.0
--- NOTE | 2023-12-02 15:22 | CTR_ITS ---
PROCEDURE INFORMATION: Exam: CTA Abdominal Aorta and Bilateral Lower Extremities (Run-off) With Contrast Exam date and time: 12/02/2023 4:07 PM Age: 43 years old Clinical indication: Condition or disease; Arterial embolism and thrombosis; Lower extremity; Additional info: Claudication, concern for lower extremity arterial ischemia. TECHNIQUE: Imaging protocol: Computed tomographic angiography of the of the abdominal aorta, pelvis and bilateral lower extremities with contrast. 3D rendering (Not supervised by radiologist): MIP and/or 3D reconstructed images were created by the technologist. Radiation optimization: All CT scans at this facility use at least one of these dose optimization techniques: automated exposure control; mA and/or kV adjustment per patient size (includes targeted exams where dose is matched to clinical indication); or iterative reconstruction. Contrast material: OMNI 350; Contrast volume: 100 ml; Contrast route: INTRAVENOUS (IV); COMPARISON: [place] [address] 10/13/2023 7:39 PM RADIATION DOSE METRICS: Total DLP (mGy-cm): 1107 FINDINGS: Aorta: Mild calcified plaque. No aneurysm, dissection, or stenosis. Celiac trunk and mesenteric arteries: No occlusion or significant stenosis. Renal arteries: No occlusion or significant stenosis. Right iliac arteries: Mild calcified plaque in the right common and external iliac arteries without stenosis. Right femoral/popliteal arteries: Calcified plaque with mild stenosis in the right common femoral artery. No stenosis in the superficial femoral or popliteal artery. Right infrapopliteal arteries: No occlusion or significant stenosis. Left iliac arteries: Mild stenosis in the distal left external iliac artery. No stenosis in the common iliac artery. Left femoral/popliteal arteries: Abrupt occlusion of the distal left superficial femoral artery. Occlusion of the proximal and mid left popliteal artery with reconstituted flow distally via collaterals. Left infrapopliteal arteries: Occlusion of the proximal left posterior tibial artery with severe disease in the mid artery. There is some reconstituted flow intermittently in the distal artery, but no visible runoff to the foot. The anterior tibial artery is patent with runoff to the foot the left peroneal artery is patent visible runoff to the ankle. Lungs: New 8 mm nodule in the right lower lobe. Stable right middle lobe nodules, the largest 5 mm. Liver: Diffuse fatty infiltration in the liver. Gallbladder and bile ducts: Unremarkable. No calcified stones. No ductal dilation. Pancreas: Unremarkable. No mass. No ductal dilation. Spleen: Normal. No splenomegaly. Adrenal glands: Normal. No mass. Kidneys and ureters: Excreted contrast is present in the bilateral renal collecting system. The kidneys are normal. No hydronephrosis. Stomach and bowel: Small duodenal diverticulum. Mild diverticulosis of the colon. No diverticulitis. The stomach and small bowel are unremarkable. No wall thickening or obstruction. Appendix: The appendix is visualized and is normal. Urinary bladder: Unremarkable. No mass. Reproductive: Mild prostate enlargement with calcifications. Intraperitoneal space: Unremarkable. No free air. No significant fluid collection. Lymph nodes: No lymphadenopathy. Bones/joints: Mild degenerative changes of the spine. No fracture. Soft tissues: Small fat containing umbilical hernia. CT/CT angio abd aorta runof [id number] IMPRESSION: 1. Abrupt occlusion of the distal left superficial femoral artery and proximal to mid popliteal artery. There is reconstituted flow in the distal popliteal artery via collaterals. 2. Occlusion of the proximal left posterior tibial artery with severe disease. There is faint reconstituted flow in the distal artery but no visible runoff to the foot. 3. The left anterior tibial and peroneal arteries are patent. 4. Pulmonary nodules measuring up to 8 mm. For patients at low risk (minimal or absent history of smoking and of other known risk factors), recommend CT Chest at 3-6 months, then consider CT Chest at 18-24 months. For patients at high risk (history of smoking or of other known risk factors), recommend CT Chest at 3-6 months, then CT Chest at 18-24 months. (Reference: Jared) References: Jared Handy et al. Guidelines for Management of Incidental Pulmonary Nodules Detected on CT Images: From the Fleischner Society 2017. Radiology. 2017;284(1):228-243.
--- NOTE | 2023-12-02 15:28 | PC.NURSE ---
left foot capillary refill < 3 seconds. no edema noted upon assessment. pedal pulses present.
[2023-12-02] MEDS: iohexol 350 mg/mL 500 mL Btl (per mL) IV (16:31)
[2023-12-02] MEDS: HYDROcodone-acetaminophen 5-325 mg Tablet 1 TAB PO ×3 (16:42→23:12)
[2023-12-02] MEDS: atorvastatin 40 mg Tablet PO (20:13)
[2023-12-02 20:42] VITALS: BP 146/97; PULSE 82; RESP 20; TEMP 36.7; O2SAT 96
[2023-12-02] MEDS: quetiapine 300 mg Tablet PO (23:09)
[2023-12-03 06:00] VITALS: BP 124/72; PULSE 118; RESP 18; TEMP 36.6; O2SAT 92
[2023-12-03] MEDS: clopidogrel 75 mg Tablet PO (08:27)
[2023-12-03] MEDS: aspirin 81 mg Chew Tablet PO (08:27)
[2023-12-03] MEDS: propranolol 20 mg Tablet PO ×3 (08:31→20:12)
[2023-12-03] MEDS: CLONazepam 1 mg Tablet PO ×3 (08:31→20:12)
[2023-12-03] MEDS: hydroCHLOROthiazide 25 mg Tablet PO (08:31)
[2023-12-03] MEDS: nicotine 21 mg Patch 1 PATCH TRANSDERMA (08:31)
[2023-12-03] MEDS: lisinopril 20 mg Tablet PO (08:31)
[2023-12-03] MEDS: HYDROcodone-acetaminophen 5-325 mg Tablet 1 TAB PO ×3 (08:31→17:14)
[2023-12-03] MEDS: acetaminophen 325 mg Tablet 650 MG PO ×2 (11:30→21:19)
--- NOTE | 2023-12-03 12:10 | P.CONIM_ITS ---
Providers/Reason For Consult 2 Consulting Physician/Specialty*: hospitlaist Reason for Consult*: leg pain Attending Physician: Gigi Wagner MD Primary Care Provider: Nilesh Hutchinson MD History of Present Illness History of Present Illness Rudy Crawford is a 43 year old male smokes 1 pack/day, not diabetic, hypertensive, homeless, came from homeless alf for suicidal ideation. Patient is stating that part of his suicidal ideation is from uncontrolled pain in his leg especially left leg which gets worse after taking 20 steps. He was supposed to see a vascular surgeon at [facility] 18th of this month, we did aorta with runoff which is showing occlusion of proximal and mid left popliteal artery, left superficial femoral artery abrupt occlusion, with good collaterals, on examination there is no ischemic ulcer. Patient is denying IV drug abuse, history of coronary disease with 2 stents in RCA, smokes on daily basis, denies alcohol use. Review of Systems 2 Const: Denies: fever(s) Eyes: Denies: change in vision ENMT: Denies: throat pain Card: Reports: swelling of feet/ankles; Denies: chest pain Resp: Denies: dyspnea GI: Denies: abdominal pain : Denies: flank pain Musc: Denies: neck pain Skin/Breast: Denies: rash Neuro: Denies: headache(s) Psych: Reports: anxiety and depression Endo: Denies: polyuria Medications/Allergies Home Medications Medication Instructions Recorded Confirmed Last Taken Type lisinopril 20 1 tab PO QAM 11/10/23 12/01/23 11/25/23 History mg-hydrochlorothiazide 25 mg tablet propranolol 20 mg tablet 20 mg PO TID 11/10/23 12/01/23 11/25/23 History atorvastatin 40 mg tablet 40 mg PO BEDTIME 30 days #30 tabs 11/12/23 12/01/23 11/25/23 Rx clonazepam 1 mg tablet 1 mg PO TID 15 days #45 tabs 11/15/23 12/01/23 11/25/23 Rx nitroglycerin 0.4 mg sublingual 0.4 mg sublingual Q5M PRN Chest 11/24/23 12/01/23 Unknown History tablet (Nitrostat) Pain pregabalin 75 mg capsule (Lyrica) 75 mg PO BID #60 caps 11/25/23 12/01/23 Unknown Rx quetiapine 300 mg tablet (Seroquel) 300 mg PO BEDTIME 12/01/23 12/01/23 Unknown History Allergies Allergy/AdvReac Type Severity Reaction Status Date / Time codeine Allergy ALGY-Hives Verified 11/24/23 09:38 ketorolac [From Toradol] Allergy ALGY-Hives Verified 11/24/23 09:38 trazodone Allergy ALGY-Difficulty Verified 11/24/23 09:38 Swallowing Current Medications Generic Name Dose Route Start Last Admin Trade Name Fredean PRN Reason Stop Dose Admin Acetaminophen 650 mg 12/01/23 19:52 12/03/23 11:30 Acetaminophen 325 Mg Tablet PO 650 mg Q4H PRN Administration MILD PAIN Hydrocodone Bitart/Acetaminophen 1 tab 12/02/23 16:31 12/03/23 08:31 Hydrocodone-Acetaminophen 5-325 Mg Tablet PO 1 tab Q4H PRN Administration MODERATE PAIN Aspirin 81 mg 12/02/23 09:18 12/03/23 08:27 Aspirin 81 Mg Chew Tablet PO 81 mg DAILY BATOOL Administration Atorvastatin Calcium 40 mg 12/02/23 21:00 12/02/23 20:13 Atorvastatin 40 Mg Tablet PO 40 mg BEDTIME BATOOL Administration Clonazepam 1 mg 12/02/23 15:00 12/03/23 08:31 Clonazepam 1 Mg Tablet PO 1 mg TID BATOOL Administration Clopidogrel Bisulfate 75 mg 12/02/23 11:04 12/03/23 08:27 Clopidogrel 75 Mg Tablet PO 75 mg DAILY BATOOL Administration Hydrochlorothiazide 25 mg 12/02/23 09:27 12/03/23 08:31 Hydrochlorothiazide 25 Mg Tablet PO 25 mg DAILY BATOOL Administration Hydroxyzine Pamoate 50 mg 12/01/23 19:52 12/02/23 11:44 Hydroxyzine 25 Mg Capsule PO 50 mg Q6H PRN Administration ANXIETY Lisinopril 20 mg 12/02/23 09:27 12/03/23 08:31 Lisinopril 20 Mg Tablet PO 20 mg DAILY BATOOL Administration Nicotine 1 patch 12/01/23 19:52 12/03/23 08:31 Nicotine 21 Mg Patch TRANSDERMA 1 patch DAILY PRN Administration NICOTINE WITHDRAWAL Propranolol HCl 20 mg 12/02/23 09:00 12/03/23 08:31 Propranolol 20 Mg Tablet PO 20 mg TID BATOOL Administration Quetiapine Fumarate 300 mg 12/02/23 22:40 12/02/23 23:09 Quetiapine 300 Mg Tablet PO 300 mg BEDTIME BATOOL Administration PFSH Acute 2 PFSH: Medical History Alcohol dependence Psychiatric care 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 Prediabetes Erectile dysfunction Chronic pain in left shoulder Had pain present when seen 12/2021 on his first visit and thought he might have a rotator cuff tear then Generalized anxiety disorder with panic attacks Benzodiazepine abuse Dental caries associated with enamel hypomineralization Cigarette smoker Claudication in peripheral vascular disease Since 2017 with walking 100 yards or less Chronic low back pain Torn rotator cuff Hypertension Depression Surgical History History of coronary angioplasty with insertion of stent Family History Other CAD (coronary artery disease) Social History Smoking and tobacco/nicotine status: current every day tobacco/nicotine user cigarettes Packs smoked per day: 2 Alcohol intake: current Alcohol intake frequency: few times a week Substance/Drug Use: never Marital status: Single Number of children: 0 Current occupational status: employed Vitals/I&O/Wt Last Vital Signs Temp 97.8 F 12/03/23 06:00 Pulse 118 H 12/03/23 06:00 Resp 18 12/03/23 06:00 BP 124/72 12/03/23 06:00 Pulse Ox 92 12/03/23 06:00 O2 Del Method Room Air 12/03/23 06:00 12/02/23 12/03/23 12/03/23 22:59 06:59 14:59 Intake Total 800 / 800 Balance 800 / 800 Weight last 48 hrs Weight 106.594 kg Physical Exam 2 Narrative: On physical exam patient has palpable pulse, warm to touch No sign of ischemic ulcer GCS 15 No active chest pain Pleasant and cooperative Currently on room air Nonfocal neuroexam Abdomen soft Laying supine Data 12/01/23 18:42 12/01/23 18:42 A&P Assessment and plan (1) Claudication in peripheral vascular disease: (2) Peripheral vascular disease: (3) Hyperlipemia: (4) Prediabetes: (5) Hypertension: Qualifiers: Hypertension type: primary hypertension Qualified Code(s): I10 - Essential (primary) hypertension Plan Critical peripheral vascular disease Aorta with runoff showing left SFA occlusion with collateral supply, spoke with our gameplay programmer Dr. Ontiveros who recommended vascular surgery intervention at [facility] where patient was originally supposed to follow-up, I have reached out to [facility] to get him transferred, they have taken the information in my cell phone waiting for callback, they do have psych duncan as well For now for symptom relief I will put Nitropaste on his left leg Add cilostazol along antiplatelet and statin Spoke with Dr. Hardy, Dr. Ontiveros & [facility] Consult Attestations 2 Medical Necessity Statement: Would recommend transfer to [facility] Diagnoses Claudication in peripheral vascular disease I73.9 Peripheral vascular disease I73.9 Hyperlipemia E78.5 Prediabetes R73.03 Primary hypertension I10 Hypertension type: primary hypertension
[2023-12-03] MEDS: cilostazol 100 mg Tablet PO ×2 (13:15→17:14)
--- NOTE | 2023-12-03 13:20 | P.NPUDS_ITS ---
Diagnoses at Discharge Discharge Diagnosis (1) Claudication in peripheral vascular disease: Status: Acute Permanent problem details: Since 2017 with walking 100 yards or less (2) Peripheral vascular disease: Status: Acute (3) Hyperlipemia: Status: Acute (4) Prediabetes: Status: Acute (5) Hypertension: Status: Acute Qualifiers: Hypertension type: primary hypertension Qualified Code(s): I10 - Essential (primary) hypertension Reason for Visit Reason for Visit: SI Brief History: History of Present Illness Rudy Crawford is a 43 year old male who presents with suicidal ideation to the emergency department stating that he was depressed and tired and significant pain. He reports that he has not been using alcohol. He does report that he had missed his appointment for his surgeon to manage his peripheral vascular disease yesterday. He reported that he had gone to [facility] but was kicked out because he had not given up all of his medications. He reports that he has not been abusing any alcohol nor has you been abusing his Klonopin. He has reported that he continues to be tired of being homeless and states that he has had thoughts of hurting himself with plans to run into traffic. He had reported having problems with memory and concentration. He reports chronic pain issues in his back as well. The patient had stated that he had tried to remain hopeful about his girlfriend finding him in her place but believes that this will not be available until December. He reports low energy and low motivation. He reports having more frequent crying episodes. He states that his medications for depression had not been helpful so he had discontinued them. He reports no substantial changes since his last hospitalization. [facility] Discharge Summary from 11/15/23 Diagnoses at Discharge Discharge Diagnosis (1) Major depressive disorder: Status: Acute (2) Panic disorder: Status: Inactive (3) Alcohol dependence: Status: Acute (4) Generalized anxiety disorder with pa emily attacks: Status: Acute Reason for Visit SI Brief History: History of Present Illness Rudy Crawford is a 43 year old male Admitted with suicidal ideation after presenting to the emergency department stating that he wished to jump out in front of a car. The patient had reported that he had been in a psychiatric facility at [facility] for the past week and was discharged on on new psychiatric medications. He had complained that he had not been able to urinate since starting his Seroquel. He reports that he has been more depressed currently. He reports that he has continued panic attacks. He reports that he has continued feelings of hopelessness and worthlessness. He reports that he has not used any illicit drugs or alcohol in over 3 months now. He reports that his Klonopin has been lowered from 6 mg/day to 3 mg/day over the last 6 weeks. He reports that he has been attempting to work but states that it has not been successful recently. He reports that [place] but states that he has been homeless for weeks. Inpatient psychiatric history: Multiple inpatient stays over the last year. Outpatient psychiatric history: He has recently started with outpatient ther apy and medication management at the [facility]. Current medications: Klonopin 1 mg 3 times a day, Plavix 75 mg daily, Cymbalta 60 mg twice a day, Lamictal 75 mg daily, lisinopril, nitroglycerin, propranolol 20 mg 3 times a day, Seroquel 300 mg at night, hydrocodone 1 tablet 4 times a day for pain Medical history: As previous with history of prediabetes, erectile dysfunction, left shoulder pain, peripheral vascular disease with a history of carotid Stenosis, 11/10/23:Doppler of the left lower extremity showed complete occlusion of the distal superficial femoral artery Surgical history: Rotator cuff surgery Allergies: codeine, toradol, trazodone Drug and alcohol hx: sober off alcohol for 4 months, Social Hx: see below, no new changes. Discharge summary from [facility] on 08/18/23 Diagnoses at Discharge Discharge Diagnosis (1) Major depressive disorder: Sta tus: Acute (2) Panic disorder: Status: Inacti ve (3) Alcohol dependence: Status: Ac alejandrina (4) Generalized anxiety disorder with pa emily attacks: Status: Acute Reason for Visit Homicidal Brief History: History of Present Illness Rudy Crawford is a 43 year old male who presented to the emergency department with the following report: Chief Complaint: Psychiatric Symptoms Stated Complaint: Homicidal Time Seen by Provider: 08/13/23 14:05 Source: patient Mode of arrival: ambulatory Limitations: no limitations History of Present Illness: ? Patient is a 43-year-old male presents to ED today stating he is homicidal towards drug addicts and meth heads .? He states if one more meth head talks to him or knocks on his door then he is going to hurt them. No specific plan. Denies suicidal ideations. No psychosis symptoms. Recently admitted to [facility] earlier this month. Reports being drug free for 8 years. Does have a history of alcohol abuse. ? complaint: other (homicidal ideation) Onset (ago): day(s) Duration: constant Relieving factors: none Context: significant life stressor Associated psychiatric symptoms: homicidal ideation Associated symptoms: Reports homicidal ideation; Deny auditory hallucinations, visual hallucinations, depression or suicidal ideation Treatments prior to arrival: none He was admitted to the neuropsychiatric unit for definitive treatment of those issues.? He is known to this tag writer through past inpatient hospitalization.? His last psychiatric hospitalization ended 07/30/2023 and an excerpt of that summary is included below for context and the fact that there have been no substantive changes.? It is noteworthy that a week later on 08/06/2023 he was admitted to the medical unit where some cardiac disease was noted and plans for continued follow-up were executed.? He was discharged on 08/12/2023 from that and he returns now reporting being overwhelmed at home secondary to meth heads knocking on his door etc.? He endorsed homicidality towards these individuals and we had a long discussion about the legal implications of him acting out in an aggressive way.? We also had a long discussion about concerns related to malingering as well as concerns that this may have something to do with him not having enough Klonopin available even though he should have extra given the hospitalization.? He categorically denies that this has anything to do with the Klonopin.? We discussed moving forward with a plan to taper the Klonopin by 0.5 mg every 2 weeks such that he will be on 3-1/2 mg total daily for the next 2 weeks.? We discussed this being a short hospitalization and a plan for him to reconsider where he is living if he can get along with the people there. Per his 07/30/2023 [facility] inpatient psychiatric discharge summary: Discharge Diagnosis (1) Major depressive disorder:? ? ? Stat us: Acute (2) Panic disorder:? ? ? Status: Inactiv e (3) Alcohol dependence:? ? ? Status: Acu te (4) Generalized anxiety disorder with pa emily attacks:? ? ? Status: Acute Reason for Visit Reason for Visit: ? psych eval? Brief History: History of Present Illness Rudy Crawford is a 43 year old male recently discharged last month from the neuropsychiatric unit who presented to the emergency room complaining of suicidal ideation and continued depression.? The patient had stated that he had been discharged from [place] yesterday and reports that over the past 4 days his Klonopin had been decreased from 6 mg a day to 2 mg a day within a short period of time.? He reports some irritability and agitation since this reduction.? He had denied having used alcohol for the past few weeks.? He reports that he has been homeless.? He had reported that he had been struggling with panic attacks as well.? Patient had stated that he has been feeling more hopeless and worthless.? He reports sleep continuity disruption.? He had reported that he was hopeful of finding a [place] in the nearby area.? He reports no acute changes otherwise and stated above. Current medications: gabapentin, aspirin, lisinopril, propranolol, quetiapine, trazodone, klonopin Previous discharge summary from [facility] on 05/23/23 History of Present Illness Rudy Crawford is a 43 year old male who presented to the emergency department with the following report: Chief Complaint: Psychiatric Symptoms Stated Complaint: mag Time Seen by Provider: 05/22/23 16:58 History of Present Illness: Presents to the ER with complaints of suicidal ideations.? Patient said the worl d just coming down around him.? Last week patient lost his job, got really really drunk and decided to check himself into rehab down at [place] spent 3 days they are in when he got out felt that it he need just needed more time to help.? Patient is having bad thoughts of suicide.? Patient was on a bridge today and thought of jumping.? Since patient lost his job and is planning on moving in with his girlfriend and having major life stressors. He was admitted to the neuropsychiatric unit for the definitive treatment of those issues.? Patient presented today reporting that things are very stressed he reports that his anxiety is out of control and that he lost his job.? He reports that he is temporarily homeless and that he is moving into a new place next week with some woman that he has a relationship with.? He endorsed having suicidal thoughts but reports those have diminished.? He endorses a history of having anxiety helps with Klonopin.? He reports that his anxiety gets so [id number] that he has chest pains and feels like he might have a heart attack.? He endorses maybe having a cardiac history.? We reviewed his previous hospitalization from August of last year and an excerpt of that stay is included below for context and his report of limited/no substantive changes since that today.? Outside of his current living arrangement issues.? We discussed possible medications for his anxiety and he was very focused on not changing the Klonopin which we discussed that 2 mg p.o. 3 times daily is a very high dose.? He reports it has been very effective but cannot explain why he was always anxious if it is very effective.? He is not interested in any medications like SSRIs etc. reporting he knows what works.? He had initially talked about leaving AMA but then reported he would stay but he seemed quite ambivalent about this stay overall. Per his 09/25/2022 [facility] inpatient psychiatric discharge summary: Discharge Diagnosis (1) Panic disorder:? ? ? Status: Acute (2) Alcohol dependence:? ? ? Status: Acu te (3) Benzodiazepine abuse:? ? ? Status: A cute Reason for Visit Reason for Visit: ? Suicidal ideation? Brief History: History of Present Illness Rudy Crawford is a 42 year old male who had presented to his primary care nurse on 09/22/2020 2 in the morning requesting treatment for alcohol withdrawal.? He reports that he wishes to stop his consumption of alcohol and stated that he was having withdrawal symptoms as he had reported having last consumed alcohol on the night of 09/21/2022.? He had reported having consumed a gallon of fireball whiskey and reports having consumed a case of beer on a daily basis.? He reports his consumption of alcohol has been increasing since he was taken abruptly off of his prescribed Klonopin of 2 mg/day.? He had reported a previous history of panic attacks and considerable anxiety that had been worsening his cardiac problems.? He states that he had not been prescribed Klonopin for over a month.? He endorses a past history of withdrawal seizures although it is uncertain as to whether that was associated with withdrawal from benzodiazepines or alcohol.? He had acknowledged no depression but states that his panic attacks have been more frequent over the past few months.? He reports an extended history of chest pain shortness of breath difficulty swallowing and feeling like he is going to .? He reports that these panic attacks occur without triggers frequently. Current medications: gabapentin 300mg bid, hydrochlorothiazide/lisinopril: 25mg/20mg, hydroxyzine 25mg bid Previous [facility] on 06/22/2022 at [facility]: Rudy Crawford is a 42 year old single white male with a history of panic attacks coronary artery disease and hypertension who reports to the emergency department with suicidal ideation with a plan to jump off of a bridge.? He had reported that he had been feeling more depressed and reported uncontrolled anxiety over the past 3 months since he had ran out of his Klonopin 1 mg twice a day.? He had reported that he has had chronic panic attacks for many years with unknown triggered panic attacks lasting approximately 40 minutes with associated chest pain shortness of breath numbing and tingling in his fingers and difficulty with breathing.? He reports that his panic attacks have led him to the emergency department multiple times with complaints of chest pain.? He reports that he had a heart attack a few years ago and he has had these panic attacks since that time.? The patient reports being burdened by anxiety over the past few months.? He reports that he had been unable to receive his Klonopin in [place], [place] where he had moved.? He reports that he had recently moved back to the area and had not been able to see his primary care physician yet to get back on his Klonopin.? The patient had reported diminished energy low motivation and depressed mood for the past month.? He had endorsed having suicidal thoughts.? He denied any psychotic symptoms.? He denied any history of manic symptoms.? He had reported a long history of chronic worry since his heart attack occurred. Past psychiatric history: Patient has a history of 1 inpatient hospitalization 2 years ago for suicidal ideation at [facility] in [facility].? He had reported no history of psychotherapy but reports a history of having been treated for panic attacks and depression with medication trials on Lexapro and xanax.? He also reported a history of having been treated for opioid abuse with a history of having been in methadone clinic for a few years having last used methadone 6 years ago. Medical history: Chronic lower back pain peripheral vascular disease with claudication history of carotid stenosis history of hypertension, HTN Surgical history he has a history of placement of stent in the coronary artery he has a history of repair of a torn rotator cuff Allergies: Toradol Medications: Klonopin 1 mg twice a day aspirin 81 mg in the morning clonidine 0.1 mg twice a day nitroglycerin as needed Drug and alcohol history: He reports having begun use of opiates at the age of [age].? He had reported last use of opiates for treating pain few days ago.? He had reported a past history of methadone treatment but reports no substance abuse inpatient or rehabilitation in the past.? He had reported a past history of alcohol abuse but reports that he has not been drinking recently.? He denies any history of benzodiazepine misuse. Family psychiatric history: alcohol abuse-father Social History: Patient was born and raised in [place] He is currently living in [place].? He has never been and has no children.? He was raised by his biological parents and is the youngest of 5.? 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 He denies any significant history of trauma.? He denies any history of legal issues. Update: Patient had endorsed recently having been hospitalized at [facility] in late July in an attempt to help with detoxification off of benzodiazepines and alcohol.? He reports that he had left and intensive inpatient rehabilitation facility in [place] in early August 2022.? His living situation is also changed he is currently staying with a friend near [facility]. Hospital Course He slowly acclimated to the individual, group and milieu therapies provided.? A growing theme in his visits seems to be his Klonopin.? His last hospitalization he came in left on the same day in the drive for leaving appeared to be Klonopin.? He began to leave DECATUR at 1 point and the issue of note was Klonopin.? Prior to discharge this tag writer reached out to his current prescriber who identified that he would like him to be on the lower dose but seemed very hesitant to be the rolloff truck driver of that change.? We agreed to drop him to 1 mg p.o. 4 times daily from the 2 mg p.o. 3 times daily.? He was given a 2-week prescription that was going to be active in 2 weeks as he left with 56 1 mg tablets that would serve him for 4 times daily for the next 2 weeks.? Therefore he had a month of medication in his outpatient provider agreed that he would see him and consider dropping it down to 3.5 mg daily otherwise he refused the Chel itrol injection reporting that he still wants to drink some and we identified that being an issue like Klonopin is a bad idea.? He was also discharged on Celexa 20 mg daily Neurontin 600 mg p.o. twice daily.? He was working with the social work team for possible treatment options but was very resistant to the options that were identified.? He had modest improvement and he was able to contract for safety outside of the hospital prior to discharge.? During the hospitalization, patient had routine laboratory studies which were within normal limits except for few outliers.? Additionally there was a general medical evaluation which was also within normal limits and revealed no new acute processes. ?At the time of discharge, he denied psychosis or lethality.? Mood and anxiety were well managed.? Patient endorsed a plan to avoid all drugs of abuse and follow-up with the aftercare recommendations of the treatment team.? Patient was evaluated and deemed to be absent credible lethality, and achieved a maximum benefit from an inpatient hospitalization, so was discharged. Hospital Course Hospital Course During the hospitalization, the patient had routine laboratory studies which were within normal limits except for a few outliers.? Additionally, there was a general medical evaluation which was also within normal limits and revealed no new acute processes.? At the time of discharge, lethality was denied and psychosis was resolving.? Mood and anxiety were well managed.? The patient endorsed a plan to avoid all drugs of abuse and follow up with the aftercare recommendations of the treatment team.? The patient was evaluated and deemed to be absent credible lethality and had achieved the maximum benefit from an inpatient hospitalization, and so was discharged.? Seroquel was discontinued due to concerns that it worsened the patient's urinary retention. Another CV arterial duplex of the lower extremity revealed arterial occlusion and it was similar to a recent study and the patient was planning on following up with his Vascular Surgeon Dr. Garett Benton as previously done. Hospital Course Hospital Course During the hospitalization, the patient had routine laboratory studies which were within normal limits except for a few outliers.? Additionally, there was a general medical evaluation which was also within normal limits and revealed no new acute processes.? At the time of discharge, lethality was denied and psychosis was resolving.? Mood and anxiety were well managed.? The patient endorsed a plan to avoid all drugs of abuse and follow up with the aftercare recommendations of the treatment team.? The patient was evaluated and deemed to be absent credible lethality and had achieved the maximum benefit from an inpatient hospitalization, and so was discharged. ?The patient had complained of left-sided claudication and it CT of aorta runoff CTA was performed and Dr. Moreno and internal medicine was consulted and patient was deemed to be a candidate for a vascular surgery and was transferred out to [facility] to be admitted on the surgical floor. Psychiatrically, the patient appeared stable at this time and should remain on his current medications. He would not require further inpatient psychiatric care at this time. Results of the CT Abd Aorta Runoff: on 12/02/23 Aorta: Mild calcified plaque. No aneurysm, dissection, or stenosis. Celiac trunk and mesenteric arteries: No occlusion or significant stenosis. Renal arteries: No occlusion or significant stenosis. Right iliac arteries: Mild calcified plaque in the right common and external iliac arteries without stenosis. Right femoral/popliteal arteries: Calcified plaque with mild stenosis in the right common femoral artery. No stenosis in the superficial femoral or popliteal artery. Right infrapopliteal arteries: No occlusion or significant stenosis. Left iliac arteries: Mild stenosis in the distal left external iliac artery. No stenosis in the common iliac artery. Left femoral/popliteal arteries: Abrupt occlusion of the distal left superficial femoral artery. Occlusion of the proximal and mid left popliteal artery with reconstituted flow distally via collaterals. Left infrapopliteal arteries: Occlusion of the proximal left posterior tibial artery with severe disease in the mid artery. There is some reconstituted flow intermittently in the distal artery, but no visible runoff to the foot. The anterior tibial artery is patent with runoff to the foot the left peroneal artery is patent visible runoff to the ankle. Lungs: New 8 mm nodule in the right lower lobe. Stable right middle lobe nodules, the largest 5 mm. Liver: Diffuse fatty infiltration in the liver. Gallbladder and bile ducts: Unremarkable. No calcified stones. No ductal dilation. Pancreas: Unremarkable. No mass. No ductal dilation. Spleen: Normal. No splenomegaly. Adrenal glands: Normal. No mass. Kidneys and ureters: Excreted contrast is present in the bilateral renal collecting system. The kidneys are normal. No hydronephrosis. Stomach and bowel: Small duodenal diverticulum. Mild diverticulosis of the colon. No diverticulitis. The stomach and small bowel are unremarkable. No wall thickening or obstruction. Appendix: The appendix is visualized and is normal. Urinary bladder: Unremarkable. No mass. Reproductive: Mild prostate enlargement with calcifications. Intraperitoneal space: Unremarkable. No free air. No significant fluid collection. Lymph nodes: No lymphadenopathy. Bones/joints: Mild degenerative changes of the spine. No fracture. Soft tissues: Small fat containing umbilical hernia. Involuntary Hold Information 96 Hour Hold: 96 Hour Involuntary Admission: No Mental Status Exam MSE Comments: This is an obese white male in hospital scrubs with adequate grooming and fair eye contact. There is no evidence of any abnormal involuntary motor movements tics or tremors appreciated. He was cooperative with exam in moderate distress. Speech was normal in rate, rhythm and prosody. Mood was described as better.. His affect remained bright. Thought process was linear and organized. Thought content: Patient endorsed suicidal ideation with plan to run into traffic and denies homicidal ideation, there were no delusions reported or noted, He denied any auditory or visual hallucinations. Attention and concentration appeared intact and memory appeared mostly reliable but none were formally tested. He is alert and oriented x3. Insight, judgment and impulse control are limited versus impaired. He had reported significant pain in his lower leg. Discharge Data Studies Completed and Pending: Completed Studies During Hospitalization Category Date Time Status CT angio abd aort a runof 32957 Rout ine Cat Scan 12/02/23 15:22 Completed Pending at discharge Category Date Time Status Basic Metabolic P laly AM LABS Lab 12/04/23 04:00 Ordered Complete Blood Co unt w/Auto AM LABS Lab 12/04/23 04:00 Ordered Radiology Impressions Aorta w/Runoff CTA 12/02/23 15:22 IMPRESSION: 1. Abrupt occlusion of the distal left s uperficial femoral artery and proximal to mid popliteal artery. There is reconstituted flow in the distal popliteal artery via collaterals. 2. Occlusion of the proximal left phlebotomy director ior tibial artery with severe disease. There is faint reconstituted flow in the distal artery but no visible runoff to the foot. 3. The left anterior tibial and peroneal arteries are patent. 4. Pulmonary nodules measuring up to 8 m m. For patients at low risk (minimal or absent history of smoking and of other known risk factors), recommend CT Chest at 3-6 months, then consider CT Chest at 18-24 months. For patients at high risk (history of smoking or of other known risk factors), recommend CT Chest at 3-6 months, then CT Chest at 18-24 months. (Reference: Jared) References: Jared Handy, et al. Guidelines for Management of Incidental Pulmonary Nodules Detected on CT Images: From the Fleischner Society 2017. Radiology. 2017;284(1):228-243. ADDENDUM: 12/02/231818 Upon further review, on the delayed views, there is reconstituted flow in the left anterior tibial artery with runoff to the foot. Comparison is made to the prior CTA with runoff on October 13, 2023. These findings are unchanged. Findings were discussed with Keny Andrews at 12/02/2023 6:17 PM [employer]. Laboratory Results WBC 8.47 10^3/uL (3.2 9-11.43) 12/01/23 18:42 RBC 5.25 10^6/uL (3.8 5-5.65) 12/01/23 18:42 Hgb 15.90 g/dL (11.27 -16.99) 12/01/23 18:42 Hct 46.1 % (37-53) 12/01/23 18:42 MCV 87.8 fl (82-101) 12/01/23 18:42 MCH 30.3 pg (27-33) 12/01/23 18:42 MCHC 34.5 g/dL (30-55) 12/01/23 18:42 RDW 12.4 % (12.1-15.1 ) 12/01/23 18:42 Plt Count 316 10^3/cmm (157 -399) 12/01/23 18:42 MPV 8.4 fL (7.4-10.4) 12/01/23 18:42 Neut % (Auto) 49.1 % 12/01/23 18:42 Lymph % (Auto) 42.9 % 12/01/23 18:42 [place] % (Auto) 5.1 % 12/01/23 18:42 Eos % (Auto) 1.9 % 12/01/23 18:42 Baso % (Auto) 0.4 % 12/01/23 18:42 Neut # (Auto) 4.17 10^3/uL (1.8 -7.7) 12/01/23 18:42 Lymph # (Auto) 3.6 10^3/uL (0.8- 4.8) 12/01/23 18:42 [place] # (Auto) 0.4 10^3/uL (0.2- 0.9) 12/01/23 18:42 Eos # (Auto) 0.2 10^3/uL (0.0- 0.8) 12/01/23 18:42 Baso # (Auto) 0.0 10^3/uL (0.0- 0.1) 12/01/23 18:42 Nucleated RBC % (a uto) 0 % 12/01/23 18:42 Nucleated RBCs # 0.0 /100WBC 12/01/23 18:42 Sodium 135 mmol/L (136-1 45) L 12/01/23 18:42 Potassium 3.2 mmol/L (3.5-5 .1) L 12/01/23 18:42 Chloride 94 mmol/L (98-107 ) L 12/01/23 18:42 Carbon Dioxide 28 mmol/L (22-29) 12/01/23 18:42 Anion Gap 16.2 (5-19) 12/01/23 18:42 BUN 9 mg/dL (6-20) 12/01/23 18:42 Creatinine 0.7 mg/dL (0.7-1. 2) 12/01/23 18:42 GFR Calculation 122.5 mL/min (90- 130) 12/01/23 18:42 Glucose 229 mg/dL (65-115 ) H 12/01/23 18:42 Calculated Osmolal ity 286 mOsm/kg (285- 295) 12/01/23 18:42 Calcium 9.2 mg/dL (8.5-10 .5) 12/01/23 18:42 Total Bilirubin 0.4 mg/dL (0.15-1 .2) 12/01/23 18:42 AST 35 U/L (0-40) 12/01/23 18:42 ALT 56 U/L (0-41) H 12/01/23 18:42 Alkaline Phosphata se 85 U/L (40-130) 12/01/23 18:42 Total Protein 7.6 g/dL (6.6-8.7 ) 12/01/23 18:42 Albumin 4.2 g/dL (3.5-5.2 ) 12/01/23 18:42 Globulin 3.4 g/dL (1.3-4.6 ) 12/01/23 18:42 Salicylates 1.0 mg/dL (3-10) L 12/01/23 18:42 Urine Opiates Scre en Negative ng/mL (N egative) 12/01/23 19:05 Acetaminophen < 5.0 ug/mL (10-3 0) L 12/01/23 18:42 Ur Barbiturates Sc reen Negative ng/mL (N egative) 12/01/23 19:05 Ur Phencyclidine S crn Negative ng/mL (N egative) 12/01/23 19:05 Ur Amphetamines Sc reen Negative ng/mL (N egative) 12/01/23 19:05 U Benzodiazepines Scrn Negative ng/mL (N egative) 12/01/23 19:05 Urine Cocaine Scre en Negative ng/mL (N egative) 12/01/23 19:05 U Marijuana (THC) Screen Negative ng/mL (N egative) 12/01/23 19:05 Ethyl Alcohol < 10 mg/dL (0-10) 12/01/23 18:42 Vitals: Last Vital Signs Temp 97.8 F 12/03/23 06:00 Pulse 118 H 12/03/23 06:00 Resp 18 12/03/23 06:00 BP 124/72 12/03/23 06:00 Pulse Ox 92 12/03/23 06:00 O2 Del Method Room Air 12/03/23 06:00 Discharge Plan Discharge Patient Disposition: Xfer Short-Term Hosp Condition: Stable Prescriptions: New Klonopin 1 mg tablet 1 mg PO TID Qty: 90 0RF morphine 15 mg Tablet 15 mg PO Q6H PRN (Reason: Moderate Pain) Qty: 0 0RF Continued nitroglycerin [Nitrostat] 0.4 mg Tablet, Sublingual 0.4 mg SUBLINGUAL Q5M PRN (Reason: Chest Pain) Rx Instructions: do not exceed 3 doses per episode Seroquel 300 mg tablet 300 mg PO BEDTIME propranolol 20 mg tablet 20 mg PO TID lisinopril-hydrochlorothiazide 20-25 mg tablet 1 tab PO QAM atorvastatin 40 mg Tablet 40 mg PO BEDTIME 30 Days Qty: 30 1RF pregabalin [Lyrica] 75 mg capsule 75 mg PO BID Qty: 60 0RF Discontinued clonazepam 1 mg Tablet 1 mg PO TID 15 Days Qty: 45 2RF Discharge Orders: Discharge Order (Routine); Ordered 12/03/23 Ordered By: Keny Andrews Referrals: [facility] [Other] Nilesh Hutchinson MD [Primary Care Provider] - Discharge Diet: Usual diet and As Directed Discharge Activity: Limit activity as instructed Plan of Treatment: Patient being transferred to Surgical Inpatient treatment for left lower extremity DVT at [facility] in [place]. Discharge Attestations NPU Time Spent in Discharge Care*: less than 30 min Coding Level of Care Code Acute Code for [facility] Fwd Diagnoses Claudication in peripheral vascular disease I73.9 Peripheral vascular disease I73.9 Hyperlipemia E78.5 Prediabetes R73.03 Primary hypertension I10 Hypertension type: primary hypertension
[2023-12-03 14:00] VITALS: BP 121/75; PULSE 82; RESP 14; TEMP 36.3; O2SAT 97
--- NOTE | 2023-12-03 17:13 | PC.NURSE ---
pt refusing nitro bid topical.
--- NOTE | 2023-12-03 18:33 | PC.NURSE ---
PT REFUSED NITROGLYCERIN TOPICAL APPLICATION, PT STATES THAT HE IS NOT COMFORTABLE WITH THE MEDICATION AT THIS TIME. THIS NURSE EDUCATED THE PT ON THE IMPORTANCE OF THE MEDICATION AND PT VERBALIZED UNDERSTANDING AND STILL REFUSED AT THIS TIME.
--- NOTE | 2023-12-03 18:50 | P.NPUPN_ITS ---
Subjective NPU 2 Subjective: Patient presented today with hope of being transferred to [facility] given his continued leg pain. He had reported that he would rather than endure continued pain. He continued to endorse depressed mood and diminished energy and motivation. He reported no side effects to his medication. Patient remained hopeful of transfer this coming weekend as discharge and transfer planned for today had been cancelled. Mental Status Exam 2 MSE Comments: This is an obese white male in hospital scrubs with adequate grooming and fair eye contact. There is no evidence of any abnormal involuntary motor movements tics or tremors appreciated. He was cooperative with exam in moderate distress. Speech was normal in rate, rhythm and prosody. Mood was described as upset. His affect was dysphoric Thought process was linear and organized. Thought content: Patient endorsed suicidal ideation with no plan and denies homicidal ideation, there were no delusions reported or noted, He denied any auditory or visual hallucinations. Attention and concentration appeared intact and memory appeared mostly reliable but none were formally tested. He is alert and oriented x3. Insight, judgment and impulse control are limited versus impaired. He had reported significant pain in his lower leg. Vitals/I&O/Wt Last Vital Signs Temp 97.7 F 12/08/23 03:46 Pulse 105 H 12/08/23 19:33 Resp 18 12/08/23 19:33 BP 116/75 12/08/23 19:33 Pulse Ox 95 12/08/23 19:33 O2 Del Method Room Air 12/08/23 04:12 Data NPU 12/08/23 04:14 12/08/23 04:14 A&P Assessment and plan (1) Major depressive disorder: (2) Panic disorder: (3) Alcohol dependence: (4) Generalized anxiety disorder with panic attacks: Plan Patient is a 43-year-old white male admitted with suicidal ideation, worsening depression currently sober for last 4 months but homeless with concern about claudication as well. 1. Continue Klonopin 1mg tid routinely. 2.? Encourage individual, group and milieu therapy 3.? Continue q-15 minute check for safety 4.? Recommend sober living treatment at the highest level of care to which the patient is willing to commit. 5. Appreciate medicine consult, discharge on hold for now. Involuntary Hold Information 2 96 Hour Hold: 96 Hour Involuntary Admission: No Attestations NPU 2 Medical Necessity Statement*: Inpatient hospitalization is medically necessary and clinically appropriate intervention at this time. We will monitor medications and make changes as indicated. His likely length of stay is 1-2 days. Coding Level of Care Code Acute Code for Chg Fwd Diagnoses Major depressive disorder F32.9 Panic disorder F41.0 Alcohol dependence F10.20 Generalized anxiety disorder with panic attacks F41.1; F41.0
[2023-12-03 20:02] VITALS: BP 112/75; PULSE 93; RESP 18; TEMP 36.5; O2SAT 95
[2023-12-03 20:12] VITALS: RESP 18
[2023-12-03] MEDS: atorvastatin 40 mg Tablet PO (20:12)
[2023-12-03] MEDS: morphine IR 15 mg Tablet PO (20:12)
[2023-12-03] MEDS: quetiapine 300 mg Tablet PO (20:12)
[2023-12-04] MEDS: HYDROcodone-acetaminophen 5-325 mg Tablet 1 TAB PO ×2 (04:47→10:11)
[2023-12-04 06:00] VITALS: BP 100/67; PULSE 86; RESP 18; TEMP 36.6; O2SAT 94
[2023-12-04] MEDS: CLONazepam 1 mg Tablet PO ×3 (08:10→19:25)
[2023-12-04] MEDS: lisinopril 20 mg Tablet PO (08:10)
[2023-12-04] MEDS: hydroCHLOROthiazide 25 mg Tablet PO (08:10)
[2023-12-04] MEDS: propranolol 20 mg Tablet PO ×3 (08:10→19:25)
[2023-12-04] MEDS: aspirin 81 mg Chew Tablet PO (08:10)
[2023-12-04] MEDS: clopidogrel 75 mg Tablet PO (08:10)
[2023-12-04] MEDS: cilostazol 100 mg Tablet PO ×2 (08:11→17:24)
[2023-12-04 08:58] VITALS: RESP 16; O2SAT 94
[2023-12-04] MEDS: morphine IR 15 mg Tablet PO ×2 (08:58→19:26)
[2023-12-04 09:08] LABS: Basophils % 0.6 %; Eosinophils # 0.1 10^3/uL (0.0-0.8); Eosinophils % 1.4 %; Hematocrit 44.2 % (37-53); Lymphocytes # 3.2 10^3/uL (0.8-4.8); Lymphocytes % 44.8 %; Mean Corpuscular HGB Conc 33.7 g/dL (30-55); Mean Corpuscular Hemoglobin 30.1 pg (27-33); Mean Corpuscular Volume 89.3 fl (82-101); Monocytes # 0.6 10^3/uL (0.2-0.9); Monocytes % 7.9 %; Neutrophils # 3.09 10^3/uL (1.8-7.7); Neutrophils % 43.7 %; Nucleated Red Blood Cells % 0 %; Platelet Count 314 10^3/cmm (157-399); Red Blood Count 4.95 10^6/uL (3.85-5.65); Red Cell Distribution Width 12.3 % (12.1-15.1); White Blood Count 7.06 10^3/uL (3.29-11.43)
[2023-12-04 09:40] LABS: Anion Gap 13.3 (5-19); Blood Urea Nitrogen 12 mg/dL (6-20); Calcium 8.8 mg/dL (8.5-10.5); Carbon Dioxide 26 mmol/L (22-29); Chloride 97 mmol/L (98-107); Creatinine Clr Calc Pharmacy 137.1627; Glucose 178 mg/dL (65-115); Osmolality Calculated 280 mOsm/kg (285-295); Potassium 3.3 mmol/L (3.5-5.1); Sodium 133 mmol/L (136-145)
--- NOTE | 2023-12-04 11:31 | P.NPUPN_ITS ---
Subjective NPU 2 Subjective: Patient presented today reporting that he was doing okay. He reports the pain in his leg is significant and that it was his understanding that there was a plan to discharge the [facility] on Wednesday given that limited options provided yesterday. We discussed that we would reach out to the medical team to make sure there was no issues that were pressing or anything else we need to do as we await discharge on Wednesday. He reports that much of his issues of feeling suicidal and having bad thoughts were related to the excruciating pain that he has been in. He denied any issues with his medication. He did report that prior to returning he was having some real issues while on the medication and that discontinuing the medication actually made him feel better. Mental Status Exam 2 MSE Comments: This is an obese white male in hospital scrubs with adequate grooming and fair eye contact. There is no evidence of any abnormal involuntary motor movements tics or tremors appreciated. He was cooperative with exam in mild distress. Speech was normal in rate, rhythm and prosody. Mood was described as better. His affect remained bright. Thought process was linear and organized. Thought content: Patient denied suicidal or homicidal ideation, there were no delusions reported or noted, He denied any auditory or visual hallucinations. Attention and concentration appeared intact and memory appeared mostly reliable but none were formally tested. He is alert and oriented x3. Insight, judgment and impulse control are limited, and improving. He had reported significant pain in his lower leg. Vitals/I&O/Wt Last Vital Signs Temp 97.8 F 12/04/23 06:00 Pulse 86 12/04/23 06:00 Resp 16 12/04/23 08:58 BP 100/67 12/04/23 06:00 Pulse Ox 94 12/04/23 08:58 O2 Del Method Room Air 12/03/23 06:00 Data NPU 12/04/23 08:59 12/04/23 08:59 A&P Assessment and plan (1) Major depressive disorder: (2) Panic disorder: (3) Alcohol dependence: (4) Generalized anxiety disorder with panic attacks: Plan Patient is a 43-year-old white male admitted with suicidal ideation, worsening depression currently sober for last 4 months but homeless with concern about claudication as well. 1. Continue Klonopin 1mg tid routinely. Hold on cymbalta as patient requesting new antidepressant 2.? Encourage individual, group and milieu therapy 3.? Continue q-15 minute check for safety 4.? Recommend sober living treatment at the highest level of care to which the patient is willing to commit. 5. Appreciate hospitalist consult and will await recommendations and follow as indicated. Involuntary Hold Information 2 96 Hour Hold: 96 Hour Involuntary Admission: No Attestations NPU 2 Medical Necessity Statement*: Inpatient hospitalization is medically necessary and clinically appropriate intervention at this time. We will monitor medications and make changes as indicated. His likely length of stay is 2-4 days. Coding Level of Care Code Acute Code for [facility] Fwd Diagnoses Major depressive disorder F32.9 Panic disorder F41.0 Alcohol dependence F10.20 Generalized anxiety disorder with panic attacks F41.1; F41.0
[2023-12-04] MEDS: OLANZapine 5 mg ODT PO (11:43)
[2023-12-04 14:00] VITALS: BP 144/75; PULSE 94; RESP 14; TEMP 36.4; O2SAT 93
[2023-12-04] MEDS: quetiapine 300 mg Tablet PO (19:25)
[2023-12-04] MEDS: atorvastatin 40 mg Tablet PO (19:25)
[2023-12-04 19:26] VITALS: RESP 17
[2023-12-04 20:20] VITALS: BP 110/70; PULSE 93; RESP 18; TEMP 36.3; O2SAT 96
[2023-12-04] MEDS: hyDROXYzine 25 mg Capsule 50 MG PO (23:18)
[2023-12-05] MEDS: HYDROcodone-acetaminophen 5-325 mg Tablet 1 TAB PO ×3 (01:56→19:58)
--- NOTE | 2023-12-05 03:58 | PC.NURSE ---
Around 2029 patient was confused. He did not know if it was night or day. He asked if he was supposed to go to work today. He asked for [employer]. He asked what time dinner was. I told him he has had 2 sandwiches and he was shocked that he had even eaten.
[2023-12-05 06:00] VITALS: RESP 16
[2023-12-05] MEDS: cilostazol 100 mg Tablet PO ×2 (08:18→17:12)
[2023-12-05] MEDS: CLONazepam 1 mg Tablet PO ×3 (08:18→19:59)
[2023-12-05] MEDS: clopidogrel 75 mg Tablet PO (08:18)
[2023-12-05] MEDS: lisinopril 20 mg Tablet PO (08:18)
[2023-12-05] MEDS: hydroCHLOROthiazide 25 mg Tablet PO (08:18)
[2023-12-05] MEDS: aspirin 81 mg Chew Tablet PO (08:18)
[2023-12-05] MEDS: propranolol 20 mg Tablet PO ×3 (08:18→19:59)
[2023-12-05 08:38] VITALS: RESP 16; O2SAT 96
[2023-12-05] MEDS: morphine IR 15 mg Tablet PO ×2 (08:38→22:49)
[2023-12-05] MEDS: acetaminophen 325 mg Tablet 650 MG PO (13:21)
[2023-12-05 14:00] VITALS: BP 116/70; PULSE 90; RESP 13; TEMP 36.8; O2SAT 94
--- NOTE | 2023-12-05 19:06 | P.NPUPN_ITS ---
Subjective NPU 2 Subjective: Patient presented today reporting that he is doing okay. He reports that he is hopeful that tomorrow the plan for transfer to [facility] for his leg goes off without a hitch. He reports that otherwise he is feeling okay and is optimism about his leg getting better is picking up his spirits. He denied any side effects to the medication. Mental Status Exam 2 MSE Comments: This is an obese white male in hospital scrubs with adequate grooming and fair eye contact. There is no evidence of any abnormal involuntary motor movements tics or tremors appreciated. He was cooperative with exam in mild distress. Speech was normal in rate, rhythm and prosody. Mood was described as better. His affect remained bright. Thought process was linear and organized. Thought content: Patient denied suicidal or homicidal ideation, there were no delusions reported or noted, He denied any auditory or visual hallucinations. Attention and concentration appeared intact and memory appeared mostly reliable but none were formally tested. He is alert and oriented x3. Insight, judgment and impulse control are limited, and improving. He had reported significant pain in his lower leg. Vitals/I&O/Wt Last Vital Signs Temp 98.3 F 12/05/23 14:00 Pulse 90 12/05/23 14:00 Resp 13 12/05/23 14:00 BP 116/70 12/05/23 14:00 Pulse Ox 94 12/05/23 14:00 O2 Del Method Room Air 12/04/23 20:20 Weight last 48 hrs Weight 109.316 kg Data NPU 12/04/23 08:59 12/04/23 08:59 A&P Assessment and plan (1) Major depressive disorder: (2) Panic disorder: (3) Alcohol dependence: (4) Generalized anxiety disorder with panic attacks: Plan Patient is a 43-year-old white male admitted with suicidal ideation, worsening depression currently sober for last 4 months but homeless with concern about claudication as well. 1. Continue Klonopin 1mg tid routinely. Hold on cymbalta as patient requesting new antidepressant 2.? Encourage individual, group and milieu therapy 3.? Continue q-15 minute check for safety 4.? Recommend sober living treatment at the highest level of care to which the patient is willing to commit. 5. Appreciate hospitalist consult and will await recommendations and follow as indicated. Involuntary Hold Information 2 96 Hour Hold: 96 Hour Involuntary Admission: No Attestations NPU 2 Medical Necessity Statement*: Inpatient hospitalization is medically necessary and clinically appropriate intervention at this time. We will monitor medications and make changes as indicated. His likely length of stay is 1-3 days. Coding Level of Care Code Acute Code for [facility] Fwd Diagnoses Major depressive disorder F32.9 Panic disorder F41.0 Alcohol dependence F10.20 Generalized anxiety disorder with panic attacks F41.1; F41.0
[2023-12-05 19:53] VITALS: BP 114/79; PULSE 90; RESP 16; TEMP 36.6; O2SAT 95
[2023-12-05] MEDS: atorvastatin 40 mg Tablet PO (19:59)
[2023-12-05] MEDS: quetiapine 300 mg Tablet PO (19:59)
[2023-12-05 22:49] VITALS: RESP 18
[2023-12-06] VITALS (42 sets, daily range): BP systolic 101–125; BP diastolic 68–91; PULSE 89–98; RESP 10–25; TEMP 36.5–36.9; O2SAT 93–99
[2023-12-06] MEDS: OLANZapine 5 mg ODT PO (00:03)
[2023-12-06] MEDS: HYDROcodone-acetaminophen 5-325 mg Tablet 1 TAB PO ×4 (03:46→21:09)
[2023-12-06] MEDS: morphine IR 15 mg Tablet PO ×3 (06:37→19:43)
[2023-12-06] MEDS: CLONazepam 1 mg Tablet PO ×3 (08:37→19:43)
[2023-12-06] MEDS: cilostazol 100 mg Tablet PO ×2 (08:37→17:28)
[2023-12-06] MEDS: aspirin 81 mg Chew Tablet PO (08:37)
[2023-12-06] MEDS: hydroCHLOROthiazide 25 mg Tablet PO (08:37)
[2023-12-06] MEDS: propranolol 20 mg Tablet PO ×3 (08:37→19:43)
[2023-12-06] MEDS: lisinopril 20 mg Tablet PO (08:37)
[2023-12-06] MEDS: clopidogrel 75 mg Tablet PO (08:37)
--- NOTE | 2023-12-06 14:34 | P.TS_ITS ---
Transfer Summary Providers Date of Admission: 12/01/23 19:50 Date of Discharge/Transfer: 12/06/23 Attending Provider at Admission: Gigi Wagner MD Attending Provider at Transfer: Gigi Wagner MD Primary Care Provider: Nilesh Hutchinson MD Transfer Plans: Anticipated date of transfer: 12/06/23 . Diagnoses at Discharge Discharge Diagnosis (1) Major depressive disorder: Status: Acute (2) Panic disorder: Status: Inactive (3) Alcohol dependence: Status: Inactive (4) Generalized anxiety disorder with panic attacks: Status: Acute Reason for Visit Reason for Visit SI Hospital Course Hospital Course Initially patient admitted for suicidal ideation due to severe pain in his legs. He was found to have peripheral arterial disease and was supposed to see a surgeon as an outpatient on the however has not made it to his appointment yet. During the hospitalization, the patient had routine laboratory studies which were within normal limits except for a few outliers.? Additionally, there was a general medical evaluation which was also within normal limits and revealed no new acute processes.? At the time of discharge, lethality was denied and psychosis was resolving.? Mood and anxiety were well managed.? The patient endorsed a plan to avoid all drugs of abuse and follow up with the aftercare recommendations of the treatment team.? The patient was evaluated and deemed to be absent credible lethality and had achieved the maximum benefit from an inpatient hospitalization, and so was discharged. ?The patient had complained of left-sided claudication and it CT of aorta runoff CTA was performed and Dr. Moreno and internal medicine was consulted and patient was deemed to be a c andidate for a vascular surgery and [facility] was contacted however there is no bed available at the hospital and therefore patient could not be transferred up there. We are currently working on patient's transfer. Once information available we will update this transfer summary document. Psychiatrically, the patient appeared stable at this time and should remain on his current medications. He would not require further inpatient psychiatric care at this time. As mentioned above patient has been cleared from psychiatric standpoint. Please see results of CT abdomen aorta runoff below. Results of the CT Abd Aorta Runoff: on 12/02/23 Aorta: Mild calcified plaque. No aneurysm, dissection, or stenosis. Celiac trunk and mesenteric arteries: No occlusion or significant stenosis. Renal arteries: No occlusion or significant stenosis. Right iliac arteries: Mild calcified plaque in the right common and external iliac arteries without stenosis. Right femoral/popliteal arteries: Calcified plaque with mild stenosis in the right common femoral artery. No stenosis in the superficial femoral or popliteal artery. Right infrapopliteal arteries: No occlusion or significant stenosis. Left iliac arteries: Mild stenosis in the distal left external iliac artery. No stenosis in the common iliac artery. Left femoral/popliteal arteries: Abrupt occlusion of the distal left superficial femoral artery. Occlusion of the proximal and mid left popliteal artery with reconstituted flow distally via collaterals. Left infrapopliteal arteries: Occlusion of the proximal left posterior tibial artery with severe disease in the mid artery. There is some reconstituted flow intermittently in the distal artery, but no visible runoff to the foot. The anterior tibial artery is patent with runoff to the foot the left peroneal artery is patent visible runoff to the ankle. Lungs: New 8 mm nodule in the right lower lobe. Stable right middle lobe nodules, the largest 5 mm. Liver: Diffuse fatty infiltration in the liver. Gallbladder and bile ducts: Unremarkable. No calcified stones. No ductal dilation. Pancreas: Unremarkable. No mass. No ductal dilation. Spleen: Normal. No splenomegaly. Adrenal glands: Normal. No mass. Kidneys and ureters: Excreted contrast is present in the bilateral renal collecting system. The kidneys are normal. No hydronephrosis. Stomach and bowel: Small duodenal diverticulum. Mild diverticulosis of the colon. No diverticulitis. The stomach and small bowel are unremarkable. No wall thickening or obstruction. Appendix: The appendix is visualized and is normal. Urinary bladder: Unremarkable. No mass. Reproductive: Mild prostate enlargement with calcifications. Intraperitoneal space: Unremarkable. No free air. No significant fluid collection. Lymph nodes: No lymphadenopathy. Bones/joints: Mild degenerative changes of the spine. No fracture. Soft tissues: Small fat containing umbilical hernia. Patient is symptomatic from his PAD. Discussed with on-call holistic pulser Dr. Ontiveros who recommends vascular surgery intervention. Nitropaste has been placed on leg. Cilostazol antiplatelet, statin have been added to regimen. Will addend this document once bed is obtained for transfer. Physical Exam Narrative: No acute distress No ischemic ulcers on lower extremities No active chest pain On room air Normal S1-S2 Clear to auscultation bilaterally Abdomen soft TS Data Studies Completed and Pending Completed Studies During Hospitalization Category Date Time Status CT angio abd aorta runof 29583 Routine Cat Scan 12/02/23 15:22 Completed Laboratory Last Values WBC 7.06 10^3/uL (3.29-11.43) 12/04/23 08:59 RBC 4.95 10^6/uL (3.85-5.65) 12/04/23 08:59 Hgb 14.90 g/dL (11.27-16.99) 12/04/23 08:59 Hct 44.2 % (37-53) 12/04/23 08:59 MCV 89.3 fl (82-101) 12/04/23 08:59 MCH 30.1 pg (27-33) 12/04/23 08:59 MCHC 33.7 g/dL (30-55) 12/04/23 08:59 RDW 12.3 % (12.1-15.1) 12/04/23 08:59 Plt Count 314 10^3/cmm (157-399) 12/04/23 08:59 MPV 8.0 fL (7.4-10.4) 12/04/23 08:59 Neut % (Auto) 43.7 % 12/04/23 08:59 Lymph % (Auto) 44.8 % 12/04/23 08:59 Johnston % (Auto) 7.9 % 12/04/23 08:59 Eos % (Auto) 1.4 % 12/04/23 08:59 Baso % (Auto) 0.6 % 12/04/23 08:59 Neut # (Auto) 3.09 10^3/uL (1.8-7.7) 12/04/23 08:59 Lymph # (Auto) 3.2 10^3/uL (0.8-4.8) 12/04/23 08:59 Johnston # (Auto) 0.6 10^3/uL (0.2-0.9) 12/04/23 08:59 Eos # (Auto) 0.1 10^3/uL (0.0-0.8) 12/04/23 08:59 Baso # (Auto) 0.0 10^3/uL (0.0-0.1) 12/04/23 08:59 Nucleated RBC % (auto) 0 % 12/04/23 08:59 Nucleated RBCs # 0.0 /100WBC 12/04/23 08:59 Sodium 133 mmol/L (136-145) L 12/04/23 08:59 Potassium 3.3 mmol/L (3.5-5.1) L 12/04/23 08:59 Chloride 97 mmol/L (98-107) L 12/04/23 08:59 Carbon Dioxide 26 mmol/L (22-29) 12/04/23 08:59 Anion Gap 13.3 (5-19) 12/04/23 08:59 BUN 12 mg/dL (6-20) 12/04/23 08:59 Creatinine 0.8 mg/dL (0.7-1.2) 12/04/23 08:59 GFR Calculation 105.0 mL/min (90-130) 12/04/23 08:59 Glucose 178 mg/dL (65-115) H 12/04/23 08:59 Calculated Osmolality 280 mOsm/kg (285-295) L 12/04/23 08:59 Calcium 8.8 mg/dL (8.5-10.5) 12/04/23 08:59 Total Bilirubin 0.4 mg/dL (0.15-1.2) 12/01/23 18:42 AST 35 U/L (0-40) 12/01/23 18:42 ALT 56 U/L (0-41) H 12/01/23 18:42 Alkaline Phosphatase 85 U/L (40-130) 12/01/23 18:42 Total Protein 7.6 g/dL (6.6-8.7) 12/01/23 18:42 Albumin 4.2 g/dL (3.5-5.2) 12/01/23 18:42 Globulin 3.4 g/dL (1.3-4.6) 12/01/23 18:42 Salicylates 1.0 mg/dL (3-10) L 12/01/23 18:42 Urine Opiates Screen Negative ng/mL (Negative) 12/01/23 19:05 Acetaminophen < 5.0 ug/mL (10-30) L 12/01/23 18:42 Ur Barbiturates Screen Negative ng/mL (Negative) 12/01/23 19:05 Ur Phencyclidine Scrn Negative ng/mL (Negative) 12/01/23 19:05 Ur Amphetamines Screen Negative ng/mL (Negative) 12/01/23 19:05 U Benzodiazepines Scrn Negative ng/mL (Negative) 12/01/23 19:05 Urine Cocaine Screen Negative ng/mL (Negative) 12/01/23 19:05 U Marijuana (THC) Screen Negative ng/mL (Negative) 12/01/23 19:05 Ethyl Alcohol < 10 mg/dL (0-10) 12/01/23 18:42 Radiology Impressions Aorta w/Runoff CTA 12/02/23 15:22 IMPRESSION: 1. Abrupt occlusion of the distal left superficial femoral artery and proximal to mid popliteal artery. There is reconstituted flow in the distal popliteal artery via collaterals. 2. Occlusion of the proximal left posterior tibial artery with severe disease. There is faint reconstituted flow in the distal artery but no visible runoff to the foot. 3. The left anterior tibial and peroneal arteries are patent. 4. Pulmonary nodules measuring up to 8 mm. For patients at low risk (minimal or absent history of smoking and of other known risk factors), recommend CT Chest at 3-6 months, then consider CT Chest at 18-24 months. For patients at high risk (history of smoking or of other known risk factors), recommend CT Chest at 3-6 months, then CT Chest at 18-24 months. (Reference: Jared) References: Tommyhogarth H, et al. Guidelines for Management of Incidental Pulmonary Nodules Detected on CT Images: From the Fleischner Society 2017. Radiology. 2017;284(1):228-243. ADDENDUM: 12/02/231818 Upon further review, on the delayed views, there is reconstituted flow in the left anterior tibial artery with runoff to the foot. Comparison is made to the prior CTA with runoff on October 13, 2023. These findings are unchanged. Findings were discussed with Keny Andrews at 12/02/2023 6:17 PM HEAD START DIRECTOR. Recent Clincial Data Last Vital Signs Temp 97.8 F 12/06/23 06:00 Pulse 98 12/06/23 06:00 Resp 16 12/06/23 12:46 BP 121/86 12/06/23 06:00 Pulse Ox 96 12/06/23 12:46 O2 Del Method Room Air 12/04/23 20:20 Vital Signs Temp Pulse Resp BP Pulse Ox 12/06/23 12:46 16 96 12/06/23 06:37 18 12/06/23 06:00 97.8 F 98 18 121/86 97 Intake & Output/Weight 12/04/23 12/05/23 12/06/23 12/07/23 05:59 06:59 06:59 06:59 Weight Vitals Last Vital Signs Temp 97.8 F 12/06/23 06:00 Pulse 98 12/06/23 06:00 Resp 16 12/06/23 12:46 BP 121/86 12/06/23 06:00 Pulse Ox 96 12/06/23 12:46 O2 Del Method Room Air 12/04/23 20:20 TS Medications Medications Acetaminophen (Acetaminophen 325 Mg Tablet) 650 mg PO Q4H PRN PRN Reason: MILD PAIN Last Admin: 12/05/23 13:21 Dose: 650 mg Hydrocodone Bitart/Acetaminophen (Hydrocodone-Acetaminophen 5-325 Mg Tablet) 1 tab PO Q4H PRN PRN Reason: MODERATE PAIN Last Admin: 12/06/23 08:41 Dose: 1 tab Aspirin (Aspirin 81 Mg Chew Tablet) 81 mg PO DAILY [facility] Last Admin: 12/06/23 08:37 Dose: 81 mg Atorvastatin Calcium (Atorvastatin 40 Mg Tablet) 40 mg PO BEDTIME [facility] Last Admin: 12/05/23 19:59 Dose: 40 mg Benztropine Mesylate (Benztropine 1 Mg Tablet) 1 mg PO BID PRN PRN Reason: Mild Extrapyramidal symptoms Camphor/Menthol/Phenol (Blistex Lip Oint 7 Gm Tube) 1 applic TOPICAL Q1H PRN PRN Reason: DRYNESS Cilostazol (Cilostazol 100 Mg Tablet) 100 mg PO BID [facility] Last Admin: 12/06/23 08:37 Dose: 100 mg Clonazepam (Clonazepam 1 Mg Tablet) 1 mg PO TID [facility] Last Admin: 12/06/23 14:33 Dose: 1 mg Clopidogrel Bisulfate (Clopidogrel 75 Mg Tablet) 75 mg PO DAILY [facility] Last Admin: 12/06/23 08:37 Dose: 75 mg Diphenhydramine HCl (Diphenhydramine 50 Mg/Ml Sdv 1ml) 50 mg IM Q4H PRN PRN Reason: Severe Aggression Diphenhydramine HCl (Diphenhydramine 50 Mg Capsule) 50 mg PO Q4H PRN PRN Reason: ANXIETY Haloperidol (Haloperidol 5 Mg Tablet) 5 mg PO Q4H PRN PRN Reason: AGITATION Haloperidol Lactate (Haloperidol Inj 5 Mg/Ml Inj 1 Ml) 5 mg IM Q4H PRN PRN Reason: Severe Aggression Hydrochlorothiazide (Hydrochlorothiazide 25 Mg Tablet) 25 mg PO DAILY [facility] Last Admin: 12/06/23 08:37 Dose: 25 mg Hydroxyzine Pamoate (Hydroxyzine 25 Mg Capsule) 50 mg PO Q6H PRN PRN Reason: ANXIETY Last Admin: 12/04/23 23:18 Dose: 50 mg Lisinopril (Lisinopril 20 Mg Tablet) 20 mg PO DAILY [facility] Last Admin: 12/06/23 08:37 Dose: 20 mg Loperamide HCl (Loperamide 2 Mg Capsule) 2 mg PO Q6H PRN PRN Reason: DIARRHEA Lorazepam (Lorazepam 2 Mg/Ml Inj 1 Ml) 2 mg IM Q4H PRN PRN Reason: Severe Aggression Morphine Sulfate (Morphine Ir 15 Mg Tablet) 15 mg PO Q6H PRN PRN Reason: MODERATE PAIN Last Admin: 12/06/23 12:46 Dose: 15 mg Nicotine (Nicotine 21 Mg Patch) 1 patch TRANSDERMA DAILY PRN PRN Reason: NICOTINE WITHDRAWAL Last Admin: 12/03/23 08:31 Dose: 1 patch Nicotine Polacrilex (Nicotine 2 Mg Gum) 2 mg BUCCAL Q2H PRN PRN Reason: NICOTINE WITHDRAWAL Nicotine Polacrilex (Nicotine 4 Mg Lozenge) 4 mg MUCOUS MEM Q2H PRN PRN Reason: NICOTINE CRAVINGS Nitroglycerin (Nitroglycerin 0.4 Mg Sublingual Tablet) 0.4 mg SUBLINGUAL Q5M PRN PRN Reason: Chest Pain Nitroglycerin (Nitroglycerin 1 Gm/Inch Oint Pkt) 1 inch TOPICAL Q6H [facility] Last Admin: 12/06/23 14:33 Dose: Not Given Olanzapine (Olanzapine 5 Mg Odt) 5 mg PO Q4H PRN PRN Reason: Agitation/Psychosis Last Admin: 12/06/23 00:03 Dose: 5 mg Ondansetron HCl (Ondansetron 4 Mg Tablet) 4 mg PO Q6H PRN PRN Reason: NAUSEA AND VOMITING Propranolol HCl (Propranolol 20 Mg Tablet) 20 mg PO TID [facility] Last Admin: 12/06/23 14:33 Dose: 20 mg Quetiapine Fumarate (Quetiapine 300 Mg Tablet) 300 mg PO BEDTIME [facility] Last Admin: 12/05/23 19:59 Dose: 300 mg Discontinued Medications Atorvastatin Calcium (Atorvastatin 40 Mg Tablet) 40 mg PO BEDTIME [facility] Diphenhydramine HCl (Diphenhydramine 50 Mg/Ml Sdv 1ml) 50 mg IM ONCE PRN PRN Reason: Severe Extrapyramidal Symptoms Iohexol (Iohexol 350 Mg/Ml 500 Ml Btl (Per Ml)) 0 ml IV ONCE ONE Stop: 12/02/23 16:32 Last Admin: 12/02/23 16:31 Dose: 100 ml Lisinopril (Lisinopril 20 Mg Tablet) 40 mg PO ONCE ONE Stop: 12/02/23 21:01 Lisinopril (Lisinopril 20 Mg Tablet) 40 mg PO DAILY ONE Stop: 12/02/23 21:01 Lorazepam (Lorazepam 2 Mg/Ml Inj 10 Ml Mdv) 1 mg IM ONCE ONE Stop: 12/01/23 19:05 Last Admin: 12/01/23 19:15 Dose: 1 mg Nitroglycerin (Nitroglycerin 0.4 Mg Sublingual Tablet) 0.4 mg SUBLINGUAL Q5M PRN PRN Reason: CHEST PAIN Pharmacy Profile Note (Formulary José Miguel-Combo) 1 each PO QAM [facility] Propranolol HCl (Propranolol 20 Mg Tablet) 20 mg PO TID [facility] Allergies codeine Allergy (Verified 11/24/23 09:38) ALGY-Hives ketorolac [From Toradol] Allergy (Verified 11/24/23 09:38) ALGY-Hives trazodone Allergy (Verified 11/24/23 09:38) ALGY-Difficulty Swallowing Home Medications lisinopril 20 mg-hydrochlorothiazide 25 mg tablet 1 tab PO QAM 11/10/23 [History Confirmed 12/01/23] propranolol 20 mg tablet 20 mg PO TID 11/10/23 [History Confirmed 12/01/23] atorvastatin 40 mg tablet 40 mg PO BEDTIME 30 days #30 tabs 11/12/23 [Rx Confirmed 12/01/23] clonazepam 1 mg tablet 1 mg PO TID 15 days #45 tabs 11/15/23 [Rx Confirmed 12/01/23] nitroglycerin 0.4 mg sublingual tablet (Nitrostat) 0.4 mg sublingual Q5M PRN Chest Pain 11/24/23 [History Confirmed 12/01/23] pregabalin 75 mg capsule (Lyrica) 75 mg PO BID #60 caps 11/25/23 [Rx Confirmed 12/01/23] quetiapine 300 mg tablet (Seroquel) 300 mg PO BEDTIME 12/01/23 [History Confirmed 12/01/23] clonazepam 1 mg tablet (Klonopin) 1 mg PO TID #90 tabs 12/03/23 [Rx] Discharge Plan Discharge Patient Disposition: Xfer Short-Term Hosp Condition: Stable Prescriptions: New Klonopin 1 mg tablet 1 mg PO TID Qty: 90 0RF atorvastatin 40 mg Tablet 40 mg PO BEDTIME Qty: 30 0RF aspirin 81 mg Tablet,Chewable 81 mg PO DAILY Qty: 30 0RF cilostazol 100 mg Tablet 100 mg PO BID Qty: 60 0RF morphine 15 mg Tablet 15 mg PO Q6H PRN (Reason: Moderate Pain) Qty: 0 0RF Continued nitroglycerin [Nitrostat] 0.4 mg Tablet, Sublingual 0.4 mg SUBLINGUAL Q5M PRN (Reason: Chest Pain) Rx Instructions: do not exceed 3 doses per episode Seroquel 300 mg tablet 300 mg PO BEDTIME propranolol 20 mg tablet 20 mg PO TID lisinopril-hydrochlorothiazide 20-25 mg tablet 1 tab PO QAM atorvastatin 40 mg Tablet 40 mg PO BEDTIME 30 Days Qty: 30 1RF pregabalin [Lyrica] 75 mg capsule 75 mg PO BID Qty: 60 0RF Discontinued clonazepam 1 mg Tablet 1 mg PO TID 15 Days Qty: 45 2RF Referrals: [facility] [Other] Nilesh Hutchinson MD [Primary Care Provider] - Discharge Diet: Usual diet and As Directed Discharge Activity: Limit activity as instructed Plan of Treatment: Patient being transferred to Surgical Inpatient treatment for left lower extremity DVT at [facility] in [facility]. Transfer Attestations Time Spent in Transfer Care: greater than 30 min Quality Metrics Clinical Quality Measures [ No reported AMI, CVA or VTE this stay] Coding Level of Care Code 28337 Total time (in minutes) for Discharge: 50 Diagnoses Major depressive disorder F32.9 Panic disorder F41.0 Alcohol dependence F10.20 Generalized anxiety disorder with panic attacks F41.1; F41.0
--- NOTE | 2023-12-06 14:40 | W.PM.NPUPNS ---
Subjective NPU Subjective: Patient presented today reporting that he is feeling optimistic as the plan for transfer has been executed. He reports that he is so thankful for the team for working with him and endorses apologies for any time that he was less than appreciative or respectful. He reports he feels so much better in the idea that the pain in his leg is going to be managed appropriately being some very optimistic. He denies any current issues. He denies any side effects of the medication. Mental Status Exam MSE Comments: This is an obese white male in hospital scrubs with adequate grooming and fair eye contact. There is no evidence of any abnormal involuntary motor movements tics or tremors appreciated. He was cooperative with exam in mild distress. Speech was normal in rate, rhythm and prosody. Mood was described as better. His affect remained bright. Thought process was linear and organized. Thought content: Patient denied suicidal or homicidal ideation, there were no delusions reported or noted, He denied any auditory or visual hallucinations. Attention and concentration appeared intact and memory appeared mostly reliable but none were formally tested. He is alert and oriented x3. Insight, judgment and impulse control are limited, and improving. He had reported significant pain in his lower leg. Vitals/I&O/Wt Last Vital Signs Temp 98.3 F 12/06/23 14:00 Pulse 89 12/06/23 14:00 Resp 16 12/06/23 14:00 BP 101/68 12/06/23 14:00 Pulse Ox 95 12/06/23 14:00 O2 Del Method Room Air 12/06/23 14:00 Weight last 48 hrs Weight 109.316 kg Data NPU 12/04/23 08:59 12/04/23 08:59 A&P Assessment and plan (1) Major depressive disorder: (2) Panic disorder: (3) Alcohol dependence: (4) Generalized anxiety disorder with panic attacks: Plan Patient is a 43-year-old white male admitted with suicidal ideation, worsening depression currently sober for last 4 months but homeless with concern about claudication as well. 1. Continue Klonopin 1mg tid routinely. 2.? Encourage individual, group and milieu therapy 3.? Transfer to medical side for ongoing treatment of his claudication and poor peripheral vascular condition. 4.? Recommend sober living treatment at the highest level of care to which the patient is willing to commit. 5. Appreciate hospitalist consult and will await recommendations and follow as indicated. Plan transfer to hospital with ability for surgical intervention. Involuntary Hold Information 96 Hour Hold: 96 Hour Involuntary Admission: No Attestations NPU Medical Necessity Statement*: Inpatient psychiatric hospitalization no longer medically necessary and patient appropriate for discharge from inpatient psychiatric services. Patient transferred to medical side and plan for transfer for definitive treatment of his leg. Coding Level of Care Code Acute Code for [facility] Fwd Diagnoses Major depressive disorder F32.9 Panic disorder F41.0 Alcohol dependence F10.20 Generalized anxiety disorder with panic attacks F41.1; F41.0
[2023-12-06] MEDS: nicotine 21 mg Patch 1 PATCH TRANSDERMA (16:08)
[2023-12-06] MEDS: atorvastatin 40 mg Tablet 80 MG PO (20:22)
--- NOTE | 2023-12-06 20:52 | PC.NURSE ---
PT TRANSFERED TO [facility] WITHOUT DIFFICULTY. PT AMBULATED ESCORTED TO ROOM 105 PER THIS NURSE. 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 PT ORIENTED TO ROOM, AND BELONGINGS FROM CLOTHING TOTE RETURNED TO PT.
[2023-12-07] VITALS (60 sets, daily range): BP systolic 108–131; BP diastolic 75–103; PULSE 88–112; RESP 10–24; TEMP -13.4–36.7; O2SAT 91–100
[2023-12-07] MEDS: nitroglycerin 1 gm/inch oint Pkt 1 INCH TOPICAL ×2 (01:08→09:31)
[2023-12-07] MEDS: HYDROcodone-acetaminophen 5-325 mg Tablet 1 TAB PO ×2 (01:08→20:23)
[2023-12-07] MEDS: morphine IR 15 mg Tablet PO ×2 (09:29→15:03)
[2023-12-07] MEDS: aspirin 81 mg Chew Tablet PO (09:30)
[2023-12-07] MEDS: hydroCHLOROthiazide 25 mg Tablet PO (09:30)
[2023-12-07] MEDS: cilostazol 100 mg Tablet PO ×2 (09:30→17:19)
[2023-12-07] MEDS: CLONazepam 1 mg Tablet PO ×3 (09:30→20:23)
[2023-12-07] MEDS: clopidogrel 75 mg Tablet PO (09:30)
[2023-12-07] MEDS: lisinopril 20 mg Tablet PO (09:30)
[2023-12-07] MEDS: propranolol 20 mg Tablet PO ×3 (09:31→20:23)
[2023-12-07 15:42] LABS: Creatine Phosphokinase 93 U/L (39-308)
[2023-12-07] MEDS: morphine ER (12 HR) 15 mg Tablet PO (17:19)
[2023-12-07] MEDS: atorvastatin 40 mg Tablet 80 MG PO (20:23)
[2023-12-08] VITALS (7 sets, daily range): BP systolic 104–119; BP diastolic 75–83; PULSE 67–105; RESP 17–18; TEMP 36.5; O2SAT 95–97
[2023-12-08 04:55] LABS: Basophils # 0.1 10^3/uL (0.0-0.1); Basophils % 0.8 %; Eosinophils # 0.1 10^3/uL (0.0-0.8); Eosinophils % 1.6 %; Hematocrit 49.3 % (37-53); Lymphocytes # 3.2 10^3/uL (0.8-4.8); Lymphocytes % 36.9 %; Mean Corpuscular HGB Conc 34.1 g/dL (30-55); Mean Corpuscular Hemoglobin 30.3 pg (27-33); Mean Corpuscular Volume 88.8 fl (82-101); Mean Platelet Volume 8.1 fL (7.4-10.4); Monocytes # 1.2 10^3/uL (0.2-0.9); Monocytes % 13.5 %; Neutrophils # 3.98 10^3/uL (1.8-7.7); Neutrophils % 45.8 %; Nucleated Red Blood Cells % 0 %; Platelet Count 401 10^3/cmm (157-399); Red Blood Count 5.55 10^6/uL (3.85-5.65); Red Cell Distribution Width 12.3 % (12.1-15.1); White Blood Count 8.69 10^3/uL (3.29-11.43)
[2023-12-08 05:18] LABS: Anion Gap 17.7 (5-19); Blood Urea Nitrogen 13 mg/dL (6-20); Calcium 9.2 mg/dL (8.5-10.5); Carbon Dioxide 21 mmol/L (22-29); Chloride 97 mmol/L (98-107); Creatinine Clr Calc Pharmacy 139.7933; Glucose 179 mg/dL (65-115); Magnesium 2.1 mg/dL (1.7-2.3); Osmolality Calculated 279 mOsm/kg (285-295); Potassium 3.7 mmol/L (3.5-5.1); Sodium 132 mmol/L (136-145)
[2023-12-08] MEDS: nicotine 21 mg Patch 1 PATCH TRANSDERMA (08:56)
[2023-12-08] MEDS: aspirin 81 mg Chew Tablet PO (08:56)
[2023-12-08] MEDS: hydroCHLOROthiazide 25 mg Tablet PO (08:56)
[2023-12-08] MEDS: cilostazol 100 mg Tablet PO ×2 (08:56→18:35)
[2023-12-08] MEDS: propranolol 20 mg Tablet PO ×3 (08:56→19:26)
[2023-12-08] MEDS: morphine ER (12 HR) 15 mg Tablet PO ×2 (08:56→18:35)
[2023-12-08] MEDS: clopidogrel 75 mg Tablet PO (08:58)
[2023-12-08] MEDS: lisinopril 20 mg Tablet PO (08:58)
[2023-12-08] MEDS: CLONazepam 1 mg Tablet PO ×3 (08:58→19:26)
[2023-12-08] MEDS: nicotine 2 mg Gum BUCCAL (10:26)
[2023-12-08] MEDS: hyDROXYzine 25 mg Capsule 50 MG PO (10:50)
[2023-12-08] MEDS: morphine IR 15 mg Tablet PO (10:50)
--- NOTE | 2023-12-08 11:09 | PC.NURSE ---
Patient has been becoming increasingly more agitated and anxious. Patient stated that he has been arguing with girlfriend sense last night and really wants a cigarette. Patient has been advised that it is not permitted to leave the floor or smoke on hospital grounds. Dr. Wagner was called regarding agitation and anxiety and advised nurse to resume PRN psych meds. Zyprexa, Haldol, and Vistiril. Patient has calmed down slightly and is currently resting in bed. Patient stated that he promises not to leave the facility because he knows he needs the vascular surgery.
--- NOTE | 2023-12-08 14:23 | PM.PN ---
Subjective Subjective: Waiting bed placement to [facility] Patient is homeless and has nowhere to go. He also got kicked out of his to shelters that he was an previously. Discussed with case management for possible placement. Vitals/I&O/Wt Last Vital Signs Temp 97.7 F 12/08/23 03:46 Pulse 81 12/08/23 09:46 Resp 17 12/08/23 09:46 BP 119/80 12/08/23 09:46 Pulse Ox 97 12/08/23 04:12 O2 Del Method Room Air 12/08/23 04:12 Weight last 48 hrs Weight 110.54 kg Physical Exam Narrative: No acute distress No ischemic ulcers on lower extremities No active chest pain On room air Normal S1-S2 Clear to auscultation bilaterally Abdomen soft Pulses intact via Doppler. Both feet and legs warm and well-perfused at this time. Data 12/08/23 04:14 12/08/23 04:14 A&P Assessment and plan (1) Claudication in peripheral vascular disease: (2) Peripheral vascular disease: (3) Hyperlipemia: (4) Prediabetes: (5) Hypertension: Qualifiers: Hypertension type: primary hypertension Qualified Code(s): I10 - Essential (primary) hypertension Plan Critical peripheral vascular disease Aorta with runoff showing left SFA occlusion with collateral supply, spoke with our consumer loan specialist Dr. Ontiveros who recommended vascular surgery intervention at [facility] where patient was originally supposed to follow-up, I have reached out to [facility] to get him transferred, Patient prefers to go to [place] if possible since is closer by. [place] does not have a bed available till Wednesday. For now for symptom relief I will put Nitropaste on his left leg. This has been helping. Continue aspirin, Plavix, statin, cilostazol Please see transfer summary for further details. Patient is awaiting bed at [facility]. He has been accepted. Leg is well-perfused along with his foot. Pulses present by Doppler. Patient is homeless and does not even have a skilled nursing to go to. Will discuss with case management regarding assistance with placement for the patient. The patient and I had a discussion today. Patient will be able to possibly discharge home to follow-up with vascular surgery as an outpatient upcoming Wednesday if there is still no bed available by tomorrow morning. Patient does have pulses bilaterally with Doppler and feet are warm and perfused. No signs of ischemic ulcers present. Physical examination done in presence of nursing staff. Attestations Medical Necessity Statement*: Awaiting transfer to [facility] for peripheral vascular disease vascular surgery consultation. Diagnoses Claudication in peripheral vascular disease I73.9 Peripheral vascular disease I73.9 Hyperlipemia E78.5 Prediabetes R73.03 Primary hypertension I10 Hypertension type: primary hypertension
[2023-12-08] MEDS: HYDROcodone-acetaminophen 5-325 mg Tablet 1 TAB PO (14:36)
[2023-12-08] MEDS: atorvastatin 40 mg Tablet 80 MG PO (19:26)
--- NOTE | 2023-12-08 19:36 | PC.NURSE ---
Transfer Note Patient transferred to [facility] from [facility] via EMS. Handoff received from KRYSTIN Jones. Patient oriented to environment and equipment. Covering service notified. Orders reviewed and will continue to monitor. Family and/or sales representative notified.
== END 2023-12-08 19:37 | disposition short-term general hospital (02) | DRG 885 ==
LOC: ER 19:10 → NP 19:50 → CSU 12-06 20:48
PROVIDERS: Internal Medicine; Admitting Provider Psychiatry & Neurology Psychiatry; Emergency Provider Emergency Medicine; PCP Family Medicine Adult Medicine; Visit Provider Psychiatry & Neurology Psychiatry
DX: F33.9 Major depressive disorder, recurrent, unspecified (principal); R45.851 Suicidal ideations; Z59.00 Homelessness unspecified; I82.432 Acute embolism and thrombosis of left popliteal vein; I82.412 Acute embolism and thrombosis of left femoral vein; I73.9 Peripheral vascular disease, unspecified; F41.1 Generalized anxiety disorder; F41.0 Panic disorder [episodic paroxysmal anxiety]; F10.21 Alcohol dependence, in remission; R45.850 Homicidal ideations; E66.9 Obesity, unspecified; F17.210 Nicotine dependence, cigarettes, uncomplicated; I10 Essential (primary) hypertension; I25.10 Atherosclerotic heart disease of native coronary artery without angina pectoris; R73.03 Prediabetes; N52.9 Male erectile dysfunction, unspecified; G89.29 Other chronic pain; M54.50 Low back pain, unspecified; Z95.5 Presence of coronary angioplasty implant and graft; Z68.38 Body mass index [BMI] 38.0-38.9, adult
CPT/HCPCS: 36415; 75635; 80048; 80053; 80306; 80307; 82550; 83735; 85025; 96372; 97150; 97165; 99285; J2060; Q9967

== ENCOUNTER 2024-02-24 08:35 | Emergency (ER) | payer MEDICAID, SELFPAY ==
[2024-02-24 08:37] VITALS: BP 123/91; PULSE 95; RESP 18; TEMP 36.9; O2SAT 98; BMI 36.6
--- NOTE | 2024-02-24 08:40 | ECG_ITS ---
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 Measurements Intervals [place] Rate: 90 P: 57 WY: 175 QRS: 58 QRSD: 123 T: 86 QT: 316 QTc: 387 Interpretive Statements SINUS RHYTHM POSSIBLE RIGHT VENTRICULAR CONDUCTION DELAY [RSR (QR) IN V1/V2] NONSPECIFIC T-WAVE ABNORMALITY Compared to ECG 11/25/2023 09:08:52 T-wave abnormality now present Sinus tachycardia no longer present Electronically Signed On 02-24-2024 15:47:56 CDT by Ariel Ontiveros M.D. [id number]
--- NOTE | 2024-02-24 08:52 | USCV_ITS ---
Rudy Crawford Age: 44 Gender: M : 1980 Exam Date: 02/24/2024 09:38 Ordering Phys: Anil Senior DO Technologist: YENNI Exam Location: [facility] Indication: LE Pain HISTORY: LE pain. Pt had vascular surg to remvove clot and stent placement. PROCEDURES: Venous duplex imaging was performed in only the left lower extremity. The following venous structures were evaluated: common femoral vein, profunda vein, proximal portion of the greater saphenous vein, superficial femoral vein, and the popliteal vein. In addition, the posterior tibial and peroneal trunk were evaluated. Serial compression, augmentation maneuvers, and spectral Doppler flow evaluation were performed. FINDINGS: No evidence of DVT seen in any vessel visualized at this time. CONCLUSIONS No evidence of left lower extremity DVT. Morgan Gandara MD (Electronically Signed) Final Date: 24 Feb 2024 12:41 S
--- NOTE | 2024-02-24 08:53 | W.ED.EXTPRO ---
HPI - Extremity Problem General: Chief complaint: Extremity Problem,Nontraumatic Stated complaint: lack of sleep Time Seen by Provider: 02/24/24 08:36 Source: patient Mode of arrival: EMS History of Present Illness: 44-year-old male presents emergency room his initial chief complaint was evidently that he was not able to sleep. Patient was discharged yesterday from [facility] in [place]. While there patient had excision of a blood clot from his left leg. He has a dehisced wound medial to the knee extending from the proximal lower leg to the lower third of the medial thigh. He tells me that became infected after the removal and they were letting it heal by secondary intent. It grew out staph and he has been on vancomycin for an extended period of time just had the PICC line removed. He states he was unable to sleep last night because of anxiety and pain. He was previously on Xarelto but he states they did not discharge him home with that he does not have anxiety medicines evidently he previously was on clonazepam. He denies chest pain or shortness of breath. MD Complaint: extremity pain and extremity swelling Pain Consistency: constant Location: left Exacerbating factors: range of motion, walking and palpation Associated symptoms: Deny arthralgias, chest pain, fever(s), myalgias, rash or short of breath Review of Systems Const: Denies: fever(s) Card: Denies: chest pain Skin/Breast: Denies: rash PFSH ED PFSH: Medical History Alcohol dependence Psychiatric care 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 Prediabetes Erectile dysfunction Chronic pain in left shoulder Had pain present when seen 12/2021 on his first visit and thought he might have a rotator cuff tear then Generalized anxiety disorder with panic attacks Benzodiazepine abuse Dental caries associated with enamel hypomineralization Cigarette smoker Claudication in peripheral vascular disease Since 2018 with walking 100 yards or less Chronic low back pain Torn rotator cuff Hypertension Depression Surgical History History of coronary angioplasty with insertion of stent Family History Other CAD (coronary artery disease) Social History Smoking and tobacco/nicotine status: current every day tobacco/nicotine user cigarettes Packs smoked per day: 2 Alcohol intake: current Alcohol intake frequency: few times a week Substance/Drug Use: never Marital status: Single Number of children: 0 Current occupational status: employed Physical Exam Const: GENERAL APPEARANCE: cooperative and comfortable ORIENTATION/CONSCIOUSNESS: Yes awake, Yes oriented to person, Yes oriented to place and Yes oriented to time HENMT: COMMON NORMALS: normocephalic, atraumatic and hearing grossly normal bilaterally HEAD & SCALP: normocephalic and atraumatic Resp: COMMON NORMALS: normal respiratory effort, No retractions, No use of accessory muscles and clear to auscultation bilaterally AUSCULTATION: clear to auscultation bilaterally Cardio: COMMON NORMALS: regular rate, regular rhythm and No murmurs present (Cardio) RATE: regular rate RHYTHM: regular rhythm GI: COMMON NORMALS: Soft to palpation and No hepatosplenomegaly present AUSCULTATION: Yes normoactive bowel sounds PALPATION: Yes Soft to palpation, No Tenderness to palpation present (GI), No Guarding due to palpation present (GI) and Yes No hepatosplenomegaly present Extremity: OTHER: Open dehisced wound with exposed subcutaneous tissue on the medial aspect of the left leg extending from the proximal portion of the lower leg to the lower third of the medial thigh. There is no sign of induration no purulent drainage fresh pink granulation tissue present healing by secondary intent subcutaneous tissues exposed but no deep structures are exposed at this time. Trace edema left lower extremity. Neuro: SENSORIUM/ORIENTATION: Yes oriented to person, Yes oriented to place and Yes oriented to time Skin: COMMON NORMALS: no rashes or lesions noted GENERAL SKIN EXAM: no rashes or lesions noted Course Vital Signs: Vital signs: Vital Signs Temperature 98.4 F 02/24/24 13:35 Pulse Rate 75 02/24/24 13:35 Respiratory Rate 18 02/24/24 13:35 Blood Pressure 113/78 02/24/24 13:35 Pulse Oximetry 100 02/24/24 13:35 Oxygen Delivery Me thod Room Air 02/24/24 11:45 MDM - Extremity (Nontraumatic) Medical Decision Making We are not able to get the old records from [facility] in a timely fashion. Patient states he does not have any of his medications. His open of Wednesday encouraged him to contact the doctors that discharged him home so they can get him his prescriptions sent in. Or he can contact his primary care doctor. At this time there is no sign of acute infection of the dehisced wound and there is no DVT on ultrasound. Medical Records Requested not received and patient been discharged Lab Data I reviewed the patient's lab results. 02/24/24 09:00 02/24/24 09:00 Laboratory Results WBC 8.41 10^3/uL (3.29-11.43) 02/24/24 09:00 RBC 4.94 10^6/uL (3.85-5.65) 02/24/24 09:00 Hgb 13.40 g/dL (11.27-16.99) 02/24/24 09:00 Hct 40.9 % (37-53) 02/24/24 09:00 MCV 82.8 fl (82-101) 02/24/24 09:00 MCH 27.1 pg (27-33) 02/24/24 09:00 MCHC 32.8 g/dL (30-55) 02/24/24 09:00 RDW 13.2 % (12.1-15.1) 02/24/24 09:00 Plt Count 389 10^3/cmm (157-399) 02/24/24 09:00 MPV 8.5 fL (7.4-10.4) 02/24/24 09:00 Neut % (Auto) 67.1 % 02/24/24 09:00 Lymph % (Auto) 25.2 % 02/24/24 09:00 [place] % (Auto) 6.3 % 02/24/24 09:00 Eos % (Auto) 0.7 % 02/24/24 09:00 Baso % (Auto) 0.5 % 02/24/24 09:00 Neut # (Auto) 5.64 10^3/uL (1.8-7.7) 02/24/24 09:00 Lymph # (Auto) 2.1 10^3/uL (0.8-4.8) 02/24/24 09:00 [place] # (Auto) 0.5 10^3/uL (0.2-0.9) 02/24/24 09:00 Eos # (Auto) 0.1 10^3/uL (0.0-0.8) 02/24/24 09:00 Baso # (Auto) 0.0 10^3/uL (0.0-0.1) 02/24/24 09:00 Nucleated RBC % (auto) 0 % 02/24/24 09:00 Nucleated RBCs # 0.0 /100WBC 02/24/24 09:00 Sodium 132 mmol/L (136-145) L 02/24/24 09:00 Potassium 3.5 mmol/L (3.5-5.1) 02/24/24 09:00 Chloride 97 mmol/L (98-107) L 02/24/24 09:00 Carbon Dioxide 24 mmol/L (22-29) 02/24/24 09:00 Anion Gap 14.5 (5-19) 02/24/24 09:00 BUN 11 mg/dL (6-20) 02/24/24 09:00 Creatinine 0.6 mg/dL (0.7-1.2) L 02/24/24 09:00 GFR Calculation 145.7 mL/min (90-130) H 02/24/24 09:00 Glucose 207 mg/dL (65-115) H 02/24/24 09:00 Calculated Osmolality 279 mOsm/kg (285-295) L 02/24/24 09:00 Calcium 9.5 mg/dL (8.5-10.5) 02/24/24 09:00 Total Bilirubin 0.3 mg/dL (0.15-1.2) 02/24/24 09:00 AST 23 U/L (0-40) 02/24/24 09:00 ALT 27 U/L (0-41) 02/24/24 09:00 Alkaline Phosphatase 105 U/L (40-130) 02/24/24 09:00 Total Protein 7.8 g/dL (6.6-8.7) 02/24/24 09:00 Albumin 4.1 g/dL (3.5-5.2) 02/24/24 09:00 Globulin 3.7 g/dL (1.3-4.6) 02/24/24 09:00 Urine Color Yellow (Yellow) 02/24/24 10:10 Urine Appearance Clear (CLEAR) 02/24/24 10:10 Urine pH 6 (5-7) 02/24/24 10:10 Ur Specific [place] 1.015 (1.005-1.030) 02/24/24 10:10 Urine Protein Neg (Negative) 02/24/24 10:10 Urine Glucose (UA) 2+ (Normal) H 02/24/24 10:10 Urine Ketones Negative (Negative) 02/24/24 10:10 Urine Blood Neg (Negative) 02/24/24 10:10 Urine Nitrate Negative (Negative) 02/24/24 10:10 Urine Bilirubin Neg (Negative) 02/24/24 10:10 Urine Urobilinogen Norm mg/dL (Negative) 02/24/24 10:10 Ur Leukocyte Esterase Negative (Negative) 02/24/24 10:10 All radiology interpretation(s) finalized by discharge Discharge Plan Discharge Patient Disposition: Home Clinical Impression: Acute leg pain, Dehiscence of wound, Chronic hyponatremia Condition: Stable Prescriptions: No Action clopidogrel [Plavix] 75 mg tablet 75 mg PO DAILY Qty: 30 0RF atorvastatin 80 mg tablet 80 mg PO BEDTIME 30 Days Qty: 30 1RF aspirin 81 mg tablet,delayed release (DR/EC) 81 mg PO DAILY Qty: 90 3RF duloxetine 30 mg capsule,delayed release(DR/EC) 30 mg PO DAILY Qty: 90 0RF hydroxyzine HCl 25 mg tablet 25 mg PO TID PRN (Reason: itching) Qty: 90 0RF metoprolol succinate 25 mg tablet extended release 24 hr 25 mg PO DAILY Qty: 90 0RF polyethylene glycol 3350 [Miralax] 17 gram powder in packet 17 g PO DAILY Qty: 100 0RF sennosides [senna] 8.6 mg tablet 8.6 mg PO DAILY Qty: 90 0RF quetiapine [Seroquel] 300 mg tablet 300 mg PO BEDTIME metformin 500 mg Tablet 500 mg PO DAILY Narcan 0.4 mg/mL Solution 0.4 mg SUBCUT Q3M PRN (Reason: OPIATE OVERDOSE) Rx Instructions: NTExceed 10 mg total dose/episode betamethasone valerate 0.1 % Cream 1 applic TOPICAL BID clotrimazole 1 % Cream 1 applic TOPICAL BID oxycodone 5 mg Tablet 5 mg PO Q4H PRN (Reason: Pain) Xarelto 2.5 mg Tablet 2.5 mg PO BID gabapentin 300 mg capsule 600 mg PO TID lisinopril-hydrochlorothiazide 20-25 mg tablet 1 tab PO QAM Discharge Orders: Discharge ED (Routine); Ordered 02/24/24 Ordered By: Anil Senior Referrals: Nilesh Hutchinson MD [Primary Care Provider] - Discharge Diet: Usual diet Discharge Activity: Increase activity as tolerated Patient Instructions: Opioid Safety, Pain Management Activity Restrictions/Additional Instructions: You are seen today with complaints of pain and anxiety. You have been discharged from the hospital in [place] yesterday. We did try to get records to review your discharge recommendations however they were not transmitted to us. The laboratory work and the ultrasound done today did not show any clinically significant abnormalities your sodium was slightly low but this has been chronic for you according to old records. Your wound was redressed with a wet-to-dry dressing. Recommend you continue wound care as per the recommendations of your discharge yesterday. You should contact the hospital where you were discharged from yesterday to find out where they prescribed your medications or if they have not yet been prescribed to have them prescribed to the pharmacy that is convenient for you. Recommend that you follow-up with your primary care doctor for referral to the wound care clinic within the next few days. Coding Level of Care Code ED Extractor And Wringer Operator for Adam Adair
[2024-02-24 09:05] VITALS: BP 113/78; PULSE 92; O2SAT 96
[2024-02-24 09:24] LABS: Basophils % 0.5 %; Eosinophils # 0.1 10^3/uL (0.0-0.8); Eosinophils % 0.7 %; Hematocrit 40.9 % (37-53); Lymphocytes # 2.1 10^3/uL (0.8-4.8); Lymphocytes % 25.2 %; Mean Corpuscular HGB Conc 32.8 g/dL (30-55); Mean Corpuscular Hemoglobin 27.1 pg (27-33); Mean Corpuscular Volume 82.8 fl (82-101); Mean Platelet Volume 8.5 fL (7.4-10.4); Monocytes # 0.5 10^3/uL (0.2-0.9); Monocytes % 6.3 %; Neutrophils # 5.64 10^3/uL (1.8-7.7); Neutrophils % 67.1 %; Nucleated Red Blood Cells % 0 %; Platelet Count 389 10^3/cmm (157-399); Red Blood Count 4.94 10^6/uL (3.85-5.65); Red Cell Distribution Width 13.2 % (12.1-15.1); White Blood Count 8.41 10^3/uL (3.29-11.43)
[2024-02-24 09:41] LABS: Alanine Aminotransferase 27 U/L (0-41); Albumin Level 4.1 g/dL (3.5-5.2); Alkaline Phosphatase 105 U/L (40-130); Anion Gap 14.5 (5-19); Aspartate Amino Transferase 23 U/L (0-40); Blood Urea Nitrogen 11 mg/dL (6-20); Calcium 9.5 mg/dL (8.5-10.5); Carbon Dioxide 24 mmol/L (22-29); Chloride 97 mmol/L (98-107); Globulin 3.7 g/dL (1.3-4.6); Glomerular Filtration Rate 145.7 mL/min (90-130); Glucose 207 mg/dL (65-115); Osmolality Calculated 279 mOsm/kg (285-295); Potassium 3.5 mmol/L (3.5-5.1); Sodium 132 mmol/L (136-145); Total Bilirubin 0.3 mg/dL (0.15-1.2); Total Protein 7.8 g/dL (6.6-8.7)
--- NOTE | 2024-02-24 10:15 | PC.NURSE ---
PER VERBAL ORDER FROM DR. TIRADO, ADMIN ATIVAN 2MG PO ONCE AND HYDROCODONE 5-325MG PO ONCE.
[2024-02-24 10:22] LABS: Add Urine Microscopic? NO; Charge for UA Resulting for Rev
[2024-02-24 10:26] LABS: Bilirubin Urine Neg (Negative); Blood Urine Neg (Negative); Glucose Urine UA 2+ (Normal); Ketones Urine Negative (Negative); Leukocyte Esterase Urine Negative (Negative); Nitrate Urine Negative (Negative); Protein Urine Neg (Negative); Specific Gravity, Urine 1.015 (1.005-1.030); Urine Appearance Clear (CLEAR); Urine Color Yellow (Yellow); Urobilinogen Urine Norm (Negative); pH Urine 6 (5-7)
[2024-02-24] MEDS: LORazepam 2 mg Tablet PO (10:27)
[2024-02-24] MEDS: HYDROcodone-acetaminophen 5-325 mg Tablet 1 TAB PO (10:27)
--- NOTE | 2024-02-24 11:03 | PC.PHAR ---
Addendum entered by Nan Marcum 02/24/24 11:07: PT TAKES COMBINATION LISINOPRIL-HCTZ. Original Note: PT STATES DISCHARGED FROM [facility]. THERE ARE [facility]-PT DISCHARGED FROM [facility] YESTERDAY. PT SAYS HE DOES NOT REMEMBER WHAT MEDS HE IS TAKING, HAS NO DISCHARGE PAPERS. [facility] FAXED MED LIST, WHICH I ADDED TO CURRENT MEDS FILLED IN JANUARY OF THIS YEAR. PT STATES TOOK LISINOPRIL, HCTZ, OXYCODONE, ASPIRIN, AND XARELTO. PT ALSO STATES KLONOPIN IS DC'D AND IS TAKING XANAX. NO ORDER FOR IT IS FOUND.
[2024-02-24 11:45] VITALS: BP 113/78; PULSE 75; O2SAT 100
[2024-02-24 13:35] VITALS: BP 113/78; PULSE 75; RESP 18; TEMP 36.9; O2SAT 100
== END 2024-02-24 13:36 | disposition home or self-care (01) ==
PROVIDERS: Emergency Provider Family Medicine; PCP Family Medicine Adult Medicine
DX: T81.31XA Disruption of external operation (surgical) wound, not elsewhere classified, initial encounter (principal); E87.1 Hypo-osmolality and hyponatremia; Z79.02 Long term (current) use of antithrombotics/antiplatelets; Z79.82 Long term (current) use of aspirin; Z79.84 Long term (current) use of oral hypoglycemic drugs; M79.605 Pain in left leg; I10 Essential (primary) hypertension; Z95.5 Presence of coronary angioplasty implant and graft; F17.210 Nicotine dependence, cigarettes, uncomplicated
CPT/HCPCS: 36415; 80053; 81003; 85025; 87040; 93005; 93971; 99284

== ENCOUNTER 2024-02-25 17:24 | Inpatient (IN) | payer MEDICAID, SELFPAY ==
[2024-02-25 17:30] VITALS: BP 128/87; PULSE 117; TEMP 36.8; O2SAT 99
--- NOTE | 2024-02-25 17:36 | ED.C_ITS ---
Documented by User: Anil Senior DO 02/25/24 18:01 HPI - Psych 2 General: Chief Complaint: Psychiatric Symptoms Stated Complaint: SI Time Seen by Provider: 02/25/24 17:36 Source: patient Mode of arrival: ambulatory History of Present Illness: MD complaint: suicidal ideation Review of Systems 2 Const: Denies: fever(s) or chills Card: Denies: chest pain Resp: Denies: dyspnea GI: Denies: abdominal pain : Denies: dysuria, urinary frequency or urinary urgency Musc: Denies: neck pain or back pain Skin/Breast: Denies: rash PFSH ED 2 PFSH: Medical History Alcohol dependence Psychiatric care 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 Prediabetes Erectile dysfunction Chronic pain in left shoulder Had pain present when seen 12/2021 on his first visit and thought he might have a rotator cuff tear then Generalized anxiety disorder with panic attacks Benzodiazepine abuse Dental caries associated with enamel hypomineralization Cigarette smoker Claudication in peripheral vascular disease Since 2017 with walking 100 yards or less Chronic low back pain Torn rotator cuff Hypertension Depression Surgical History History of coronary angioplasty with insertion of stent Family History Other CAD (coronary artery disease) Social History Smoking and tobacco/nicotine status: current every day tobacco/nicotine user cigarettes Packs smoked per day: 2 Alcohol intake: current Alcohol intake frequency: few times a week Substance/Drug Use: never Marital status: Single Number of children: 0 Current occupational status: employed Physical Exam 2 Const: COMMON NORMALS: no acute distress GENERAL APPEARANCE: cooperative and comfortable ORIENTATION/CONSCIOUSNESS: Yes awake, Yes oriented to person, Yes oriented to place and Yes oriented to time HENMT: COMMON NORMALS: normocephalic, atraumatic and hearing grossly normal bilaterally HEAD & SCALP: normocephalic and atraumatic Resp: COMMON NORMALS: normal respiratory effort, No retractions, No use of accessory muscles and clear to auscultation bilaterally AUSCULTATION: clear to auscultation bilaterally Cardio: COMMON NORMALS: regular rate, regular rhythm and No murmurs present (Cardio) RATE: regular rate RHYTHM: regular rhythm Extremity: COMMON NORMALS: normal to inspection, capillary refill normal, no clubbing, cyanosis or edema, no calf tenderness and no pedal edema Neuro: SENSORIUM/ORIENTATION: Yes oriented to person, Yes oriented to place and Yes oriented to time Skin: COMMON NORMALS: no rashes or lesions noted GENERAL SKIN EXAM: no rashes or lesions noted Course 2 Vital Signs: Vital signs: Vital Signs Temperature 98.3 F 02/25/24 22:03 Pulse Rate 117 H 02/25/24 22:03 Respiratory Rate 20 H 02/25/24 22:01 Blood Pressure 128/87 02/25/24 22:03 Pulse Oximetry 99 02/25/24 22:03 Oxygen Delivery Me thod Room Air 02/25/24 17:30 [facility] - Psych Lab Data 02/25/24 18:11 02/25/24 18:11 Laboratory Results WBC 13.65 10^3/uL (3.29-11.43) H 02/25/24 18:11 RBC 5.23 10^6/uL (3.85-5.65) 02/25/24 18:11 Hgb 14.30 g/dL (11.27-16.99) 02/25/24 18:11 Hct 43.6 % (37-53) 02/25/24 18:11 MCV 83.4 fl (82-101) 02/25/24 18:11 MCH 27.3 pg (27-33) 02/25/24 18:11 MCHC 32.8 g/dL (30-55) 02/25/24 18:11 RDW 13.2 % (12.1-15.1) 02/25/24 18:11 Plt Count 471 10^3/cmm (157-399) H 02/25/24 18:11 MPV 8.6 fL (7.4-10.4) 02/25/24 18:11 Neut % (Auto) 69.5 % 02/25/24 18:11 Lymph % (Auto) 23.3 % 02/25/24 18:11 [place] % (Auto) 6.5 % 02/25/24 18:11 Eos % (Auto) 0.3 % 02/25/24 18:11 Baso % (Auto) 0.2 % 02/25/24 18:11 Neut # (Auto) 9.48 10^3/uL (1.8-7.7) H 02/25/24 18:11 Lymph # (Auto) 3.2 10^3/uL (0.8-4.8) 02/25/24 18:11 [place] # (Auto) 0.9 10^3/uL (0.2-0.9) 02/25/24 18:11 Eos # (Auto) 0.0 10^3/uL (0.0-0.8) 02/25/24 18:11 Baso # (Auto) 0.0 10^3/uL (0.0-0.1) 02/25/24 18:11 Nucleated RBC % (auto) 0 % 02/25/24 18:11 Nucleated RBCs # 0.0 /100WBC 02/25/24 18:11 Sodium 132 mmol/L (136-145) L 02/25/24 18:11 Potassium 3.4 mmol/L (3.5-5.1) L 02/25/24 18:11 Chloride 97 mmol/L (98-107) L 02/25/24 18:11 Carbon Dioxide 23 mmol/L (22-29) 02/25/24 18:11 Anion Gap 15.4 (5-19) 02/25/24 18:11 BUN 12 mg/dL (6-20) 02/25/24 18:11 Creatinine 0.6 mg/dL (0.7-1.2) L 02/25/24 18:11 GFR Calculation 145.7 mL/min (90-130) H 02/25/24 18:11 Glucose 272 mg/dL (65-115) H 02/25/24 18:11 Calculated Osmolality 283 mOsm/kg (285-295) L 02/25/24 18:11 Calcium 9.5 mg/dL (8.5-10.5) 02/25/24 18:11 Total Bilirubin 0.2 mg/dL (0.15-1.2) 02/25/24 18:11 AST 20 U/L (0-40) 02/25/24 18:11 ALT 28 U/L (0-41) 02/25/24 18:11 Alkaline Phosphatase 110 U/L (40-130) 02/25/24 18:11 Total Protein 8.3 g/dL (6.6-8.7) 02/25/24 18:11 Albumin 4.4 g/dL (3.5-5.2) 02/25/24 18:11 Globulin 3.9 g/dL (1.3-4.6) 02/25/24 18:11 Urine Color Yellow (Yellow) 02/25/24 19:45 Urine Appearance Clear (CLEAR) 02/25/24 19:45 Urine pH 7 (5-7) 02/25/24 19:45 Ur Specific [place] 1.010 (1.005-1.030) 02/25/24 19:45 Urine Protein Neg (Negative) 02/25/24 19:45 Urine Glucose (UA) 4+ (Normal) H 02/25/24 19:45 Urine Ketones Negative (Negative) 02/25/24 19:45 Urine Blood Neg (Negative) 02/25/24 19:45 Urine Nitrate Negative (Negative) 02/25/24 19:45 Urine Bilirubin Neg (Negative) 02/25/24 19:45 Urine Urobilinogen Neg mg/dL (Negative) 02/25/24 19:45 Ur Leukocyte Esterase Negative (Negative) 02/25/24 19:45 Salicylates < 0.3 mg/dL (3-10) L 02/25/24 18:11 Urine Opiates Screen Positive ng/mL (Negative) H 02/25/24 19:45 Acetaminophen < 5.0 ug/mL (10-30) L 02/25/24 18:11 Ur Barbiturates Screen Negative ng/mL (Negative) 02/25/24 19:45 Ur Phencyclidine Scrn Negative ng/mL (Negative) 02/25/24 19:45 Ur Amphetamines Screen Negative ng/mL (Negative) 02/25/24 19:45 U Benzodiazepines Scrn Positive ng/mL (Negative) H 02/25/24 19:45 Urine Cocaine Screen Negative ng/mL (Negative) 02/25/24 19:45 U Marijuana (THC) Screen Positive ng/mL (Negative) H 02/25/24 19:45 Ethyl Alcohol < 10 mg/dL (0-10) 02/25/24 18:11 Discharge Plan Discharge Patient Disposition: Admitted As Inpatient Admit Provider: Gigi Wagner Clinical Impression: Suicidal ideation Condition: Stable Coding Level of Care Code ED Insurance Sales Executive for Chg Fwd Documented by User: Bryant Rebollar DO 02/25/24 23:22 HPI - Psych 2 General: Chief Complaint: Psychiatric Symptoms Stated Complaint: SI Time Seen by Provider: 02/25/24 17:36 History of Present Illness: 44-year-old male presents because he wou ld like placement for suicidal ideations. Patient reports he has been having issues for a while but they are not worse now. Patient just got here 3 days ago from [facility] where he was in the hospital for an extended period of time due to due to staph infection following venous graft due to large clot burden. Patient has been discharged from that. He reports that he stays in the [facility] occasionally and has been here for 3 days and he just feels like he is having a hard time adjusting and have a lot of thoughts of suicide. He initially had a plan but reports he does not have a plan at this time. [facility] ED 2 PFSH: Medical History Alcohol dependence Psychiatric care 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 Prediabetes Erectile dysfunction Chronic pain in left shoulder Had pain present when seen 12/2021 on his first visit and thought he might have a rotator cuff tear then Generalized anxiety disorder with panic attacks Benzodiazepine abuse Dental caries associated with enamel hypomineralization Cigarette smoker Claudication in peripheral vascular disease Since 2017 with walking 100 yards or less Chronic low back pain Torn rotator cuff Hypertension Depression Surgical History History of coronary angioplasty with insertion of stent Family History Other CAD (coronary artery disease) Social History Smoking and tobacco/nicotine status: current every day tobacco/nicotine user cigarettes Packs smoked per day: 2 Alcohol intake: current Alcohol intake frequency: few times a week Substance/Drug Use: never Marital status: Single Number of children: 0 Current occupational status: employed Physical Exam 2 Extremity: NARRATIVE EXTREMITY EXAM: Left leg with healing wound medial left knee from infection Psych: COMMON NORMALS: Normal thought process present THOUGHT PROCESS: N ormal thought process present THOUGHT CONTENT: Yes Suicidality present Course 2 Vital Signs: Vital signs: Vital Signs Temperature 98.3 F 02/25/24 22:03 Pulse Rate 117 H 02/25/24 22:03 Respiratory Rate 20 H 02/25/24 22:01 Blood Pressure 128/87 02/25/24 22:03 Pulse Oximetry 99 02/25/24 22:03 Oxygen Delivery Me thod Room Air 02/25/24 17:30 MDM - Psych Medical Decision Making Patient is medically cleared for admission. I discussed case with Dr. Wagner psychiatry who accepted patient for admission. He is stable upon admission to the psychiatric unit. Bridge orders were written by me. We will consult wound care due to his chronic wound to help with wound management while on the psychiatric floor. Recommend daily wound dressing changes.. Lab Data 02/25/24 18:11 02/25/24 18:11 Laboratory Results WBC 13.65 10^3/uL (3.29-11.43) H 02/25/24 18:11 RBC 5.23 10^6/uL (3.85-5.65) 02/25/24 18:11 Hgb 14.30 g/dL (11.27-16.99) 02/25/24 18:11 Hct 43.6 % (37-53) 02/25/24 18:11 MCV 83.4 fl (82-101) 02/25/24 18:11 MCH 27.3 pg (27-33) 02/25/24 18:11 MCHC 32.8 g/dL (30-55) 02/25/24 18:11 RDW 13.2 % (12.1-15.1) 02/25/24 18:11 Plt Count 471 10^3/cmm (157-399) H 02/25/24 18:11 MPV 8.6 fL (7.4-10.4) 02/25/24 18:11 Neut % (Auto) 69.5 % 02/25/24 18:11 Lymph % (Auto) 23.3 % 02/25/24 18:11 [place] % (Auto) 6.5 % 02/25/24 18:11 Eos % (Auto) 0.3 % 02/25/24 18:11 Baso % (Auto) 0.2 % 02/25/24 18:11 Neut # (Auto) 9.48 10^3/uL (1.8-7.7) H 02/25/24 18:11 Lymph # (Auto) 3.2 10^3/uL (0.8-4.8) 02/25/24 18:11 [place] # (Auto) 0.9 10^3/uL (0.2-0.9) 02/25/24 18:11 Eos # (Auto) 0.0 10^3/uL (0.0-0.8) 02/25/24 18:11 Baso # (Auto) 0.0 10^3/uL (0.0-0.1) 02/25/24 18:11 Nucleated RBC % (auto) 0 % 02/25/24 18:11 Nucleated RBCs # 0.0 /100WBC 02/25/24 18:11 Sodium 132 mmol/L (136-145) L 02/25/24 18:11 Potassium 3.4 mmol/L (3.5-5.1) L 02/25/24 18:11 Chloride 97 mmol/L (98-107) L 02/25/24 18:11 Carbon Dioxide 23 mmol/L (22-29) 02/25/24 18:11 Anion Gap 15.4 (5-19) 02/25/24 18:11 BUN 12 mg/dL (6-20) 02/25/24 18:11 Creatinine 0.6 mg/dL (0.7-1.2) L 02/25/24 18:11 GFR Calculation 145.7 mL/min (90-130) H 02/25/24 18:11 Glucose 272 mg/dL (65-115) H 02/25/24 18:11 Calculated Osmolality 283 mOsm/kg (285-295) L 02/25/24 18:11 Calcium 9.5 mg/dL (8.5-10.5) 02/25/24 18:11 Total Bilirubin 0.2 mg/dL (0.15-1.2) 02/25/24 18:11 AST 20 U/L (0-40) 02/25/24 18:11 ALT 28 U/L (0-41) 02/25/24 18:11 Alkaline Phosphatase 110 U/L (40-130) 02/25/24 18:11 Total Protein 8.3 g/dL (6.6-8.7) 02/25/24 18:11 Albumin 4.4 g/dL (3.5-5.2) 02/25/24 18:11 Globulin 3.9 g/dL (1.3-4.6) 02/25/24 18:11 Urine Color Yellow (Yellow) 02/25/24 19:45 Urine Appearance Clear (CLEAR) 02/25/24 19:45 Urine pH 7 (5-7) 02/25/24 19:45 Ur Specific [place] 1.010 (1.005-1.030) 02/25/24 19:45 Urine Protein Neg (Negative) 02/25/24 19:45 Urine Glucose (UA) 4+ (Normal) H 02/25/24 19:45 Urine Ketones Negative (Negative) 02/25/24 19:45 Urine Blood Neg (Negative) 02/25/24 19:45 Urine Nitrate Negative (Negative) 02/25/24 19:45 Urine Bilirubin Neg (Negative) 02/25/24 19:45 Urine Urobilinogen Neg mg/dL (Negative) 02/25/24 19:45 Ur Leukocyte Esterase Negative (Negative) 02/25/24 19:45 Salicylates < 0.3 mg/dL (3-10) L 02/25/24 18:11 Urine Opiates Screen Positive ng/mL (Negative) H 02/25/24 19:45 Acetaminophen < 5.0 ug/mL (10-30) L 02/25/24 18:11 Ur Barbiturates Screen Negative ng/mL (Negative) 02/25/24 19:45 Ur Phencyclidine Scrn Negative ng/mL (Negative) 02/25/24 19:45 Ur Amphetamines Screen Negative ng/mL (Negative) 02/25/24 19:45 U Benzodiazepines Scrn Positive ng/mL (Negative) H 02/25/24 19:45 Urine Cocaine Screen Negative ng/mL (Negative) 02/25/24 19:45 U Marijuana (THC) Screen Positive ng/mL (Negative) H 02/25/24 19:45 Ethyl Alcohol < 10 mg/dL (0-10) 02/25/24 18:11 No radiology studies performed this visit Discharge Plan Discharge Patient Disposition: Admitted As Inpatient Admit Provider: Gigi Wagner Clinical Impression: Suicidal ideation Condition: Stable Coding Level of Care Code ED Insurance Sales Executive for [employer]air
[2024-02-25 18:24] LABS: Basophils % 0.2 %; Eosinophils % 0.3 %; Hematocrit 43.6 % (37-53); Lymphocytes # 3.2 10^3/uL (0.8-4.8); Lymphocytes % 23.3 %; Mean Corpuscular HGB Conc 32.8 g/dL (30-55); Mean Corpuscular Hemoglobin 27.3 pg (27-33); Mean Corpuscular Volume 83.4 fl (82-101); Mean Platelet Volume 8.6 fL (7.4-10.4); Monocytes # 0.9 10^3/uL (0.2-0.9); Monocytes % 6.5 %; Neutrophils # 9.48 10^3/uL (1.8-7.7); Neutrophils % 69.5 %; Nucleated Red Blood Cells % 0 %; Platelet Count 471 10^3/cmm (157-399); Red Blood Count 5.23 10^6/uL (3.85-5.65); Red Cell Distribution Width 13.2 % (12.1-15.1); White Blood Count 13.65 10^3/uL (3.29-11.43)
[2024-02-25 18:34] LABS: Alanine Aminotransferase 28 U/L (0-41); Albumin Level 4.4 g/dL (3.5-5.2); Alkaline Phosphatase 110 U/L (40-130); Anion Gap 15.4 (5-19); Aspartate Amino Transferase 20 U/L (0-40); Blood Urea Nitrogen 12 mg/dL (6-20); Calcium 9.5 mg/dL (8.5-10.5); Carbon Dioxide 23 mmol/L (22-29); Chloride 97 mmol/L (98-107); Globulin 3.9 g/dL (1.3-4.6); Glomerular Filtration Rate 145.7 mL/min (90-130); Glucose 272 mg/dL (65-115); Osmolality Calculated 283 mOsm/kg (285-295); Potassium 3.4 mmol/L (3.5-5.1); Sodium 132 mmol/L (136-145); Total Bilirubin 0.2 mg/dL (0.15-1.2); Total Protein 8.3 g/dL (6.6-8.7)
[2024-02-25 18:46] LABS: Acetaminophen < 5.0 ug/mL (10-30); Creatinine Clr Calc Pharmacy 178.9835; Salicylate < 0.3 mg/dL (3-10)
[2024-02-25] MEDS: LORazepam 1 mg Tablet PO ×2 (18:55→21:53)
[2024-02-25 19:57] LABS: Alcohol Level < 10 mg/dL (0-10)
[2024-02-25 19:58] LABS: Add Urine Microscopic? NO; Charge for UA Resulting for Rev
[2024-02-25 20:10] LABS: Bilirubin Urine Neg (Negative); Blood Urine Neg (Negative); Glucose Urine UA 4+ (Normal); Ketones Urine Negative (Negative); Nitrate Urine Negative (Negative); Protein Urine Neg (Negative); Urine Appearance Clear (CLEAR); Urine Color Yellow (Yellow); pH Urine 7 (5-7)
[2024-02-25 20:11] LABS: Leukocyte Esterase Urine Negative (Negative); Urobilinogen Urine Neg (Negative)
[2024-02-25 20:12] LABS: Amphetamines Screen Urine Negative (Negative); Barbiturates Screen Urine Negative (Negative); Benzodiazepines Screen Urine Positive (Negative); Cocaine Screen Urine Negative (Negative); Opiate Screen Urine Positive (Negative); PCP Screen Urine Negative (Negative); THC Screen Urine Positive (Negative)
[2024-02-25] MEDS: hyDROXYzine 25 mg Capsule 50 MG PO (20:55)
[2024-02-25 22:01] VITALS: BP 132/99; PULSE 94; RESP 20; TEMP 36.3; O2SAT 99
[2024-02-25 22:03] VITALS: BP 128/87; PULSE 117; TEMP 36.8; O2SAT 99
[2024-02-25] MEDS: OLANZapine 5 mg ODT PO (22:59)
--- NOTE | 2024-02-25 23:18 | PC.NURSE ---
44-year-old male presents because he would like placement for suicidal ideations. Patient reports he has been having issues for a while but they are not worse now. Patient just got here 3 days ago from [place] where he was in the hospital for an extended period of time due to due to staph infection following venous graft due to large clot. Patient has been discharged from that. He reports that he stays in the [place] area occasionally and has been here for 3 days and he just feels like he is having a hard time adjusting and have a lot of thoughts of suicide. He initially had a plan but reports he does not have a plan at this time. Patient reports he is living in a shed and not able to shower properly and has concerns keeping the wound clean. Post op open wound for clot removal to inner left leg, wet to dry dressing applied by warehouse shipping clerk, see note. Patient is out of pain medication and no phone or transportation for follow up care. THC, opiates and benzo positive.
[2024-02-26] MEDS: LORazepam 2 mg/mL INJ 1 mL IM (01:15)
[2024-02-26] MEDS: diphenhydrAMINE 50 mg/mL SDV 1mL IM (01:15)
[2024-02-26] MEDS: haloperidol inj 5 mg/mL INJ 1 mL IM (01:15)
--- NOTE | 2024-02-26 01:18 | PC.NURSE ---
Patient came to nurses station threatening to Punch, Destroy and hurt people if we can't do something to help this anxiety / anger ! Patient was physically posturing and aggressive, warranting IM PRN's. Haldol 50mg IM, [place] 2mg IM and Benadril 50 mg IM given in the left and right Vent-glute. were given. Notable reduction in agitation and anxiety upon reassessment.
[2024-02-26 06:00] VITALS: RESP 16
[2024-02-26] MEDS: gabapentin 300 mg Capsule 600 MG PO ×3 (08:47→20:35)
[2024-02-26] MEDS: metformin 500 mg Tablet PO (08:47)
[2024-02-26] MEDS: aspirin 81 mg EC Tablet PO (08:48)
[2024-02-26] MEDS: lisinopril 20 mg Tablet PO (08:48)
[2024-02-26] MEDS: hydroCHLOROthiazide 25 mg Tablet PO (08:48)
[2024-02-26] MEDS: clopidogrel 75 mg Tablet PO (08:48)
[2024-02-26] MEDS: metoprolol succinate ER (24 HR) 25 mg Tablet PO (08:48)
[2024-02-26 14:00] VITALS: BP 116/74; PULSE 84; RESP 17; TEMP 36.5; O2SAT 97
[2024-02-26] MEDS: nicotine 4 mg lozenge MUCOUS MEM (15:39)
--- NOTE | 2024-02-26 16:31 | PM.CONSULT ---
Providers/Reason For Consult Consulting Physician/Specialty*: Dr. Hicks/internal medicine Reason for Consult*: Wound care Requesting Physician: Dr. Andrews Attending Physician: Gigi Wagner MD Primary Care Provider: Nilesh Hutchinson MD History of Present Illness History of Present Illness Rudy Crawford is a 44 year old male with past medical history of smoking, peripheral artery disease, hypertension, homeless, recurrent admissions for suicidal ideation, recent left lower limb thrombectomy at [facility] for ischemic limb which was complicated by what sounds like Staphylococcus graft infection for which he underwent another procedure 4 weeks ago as per the patient and was on IV antibiotics which was vancomycin as per the patient till 3 days ago through a PICC line (documents from outside hospital is not currently available). He was admitted on 02/24 because of suicidal ideation to Neuropsych Unit. Patient has not dressed his wound for last 3 days. Denies of having any fever but complains of occasional chills, serosanguineous discharge from the wound. He states he is supposed to follow-up with Dr. Hutchinson who is his primary care provider but have not been able to since discharge. Hospital service was consulted for wound care and further directions Review of Systems General: Reports: 10 or more systems reviewed and unremarkable except in HPI and below Const: Denies: fever(s), chills, body aches, change in appetite, change in weight, malaise, night sweats, diaphoresis, change in sleep pattern, daytime sleepiness or snoring Eyes: Denies: change in vision, blurry vision, photophobia, eye discomfort or eye discharge ENMT: Denies: throat pain, enlarged tonsils, hoarseness, mouth pain, oral sores, dry mouth, tinnitus, nasal congestion or post nasal drip Card: Denies: chest pain, palpitations, irregular heart rhythm, edema, swelling of feet/ankles, lightheadedness, syncope, pre-syncope, dyspnea on exertion, orthopnea, leg pain with exertion or acrocyanosis Resp: Denies: dyspnea, productive cough, non-productive cough, wheezing, stridor, pain on inspiration, change in phlegm color, hemoptysis or chest congestion GI: Denies: abdominal pain, nausea, vomiting, hematemesis, coffee ground emesis, dysphagia, heartburn, diarrhea, constipation, bloating, GI cramping, change in bowel habits, pain on defecation, hematochezia or melena : Denies: flank pain, difficulty urinating, dysuria, urinary frequency, urinary urgency, urinary hesitancy, urinary dribbling, difficulty starting urination, change in urine stream, nocturia or hematuria Musc: Denies: neck pain, back pain, extremity pain, joint pain, joint swelling, joint redness, joint stiffness or limited range of motion Neuro: Denies: headache(s), numbness in extremities, weakness in extremities, sensory changes, lack of coordination, difficulty walking, frequent falls, dizziness, vertigo, confusion, Slurred speech present, difficulty communicating thoughts or seizure-like activity Psych: Denies: anxiety, depression, mood swings, panic attacks, hopelessness or irritability Endo: Denies: polyuria, polydipsia, tired all the time, cold intolerance, excessive sweating, flushing or heat intolerance Conor/Lymph: Denies: easy bruising or easy bleeding All/Imm: Denies: tongue swelling, facial swelling or acute wheezing Medications/Allergies Home Medications Medication Instructions Recorded Confirmed Last Taken Type lisinopril 20 1 tab PO QAM 11/10/23 02/26/24 02/24/24 History mg-hydrochlorothiazide 25 mg tablet quetiapine 300 mg tablet (Seroquel) 300 mg PO BEDTIME 12/01/23 02/26/24 Unknown History aspirin 81 mg tablet,delayed 81 mg PO DAILY #90 tabs 12/17/23 02/26/24 02/24/24 Rx release atorvastatin 80 mg tablet 80 mg PO BEDTIME 30 days #30 tabs 12/17/23 02/26/24 Unknown Rx clopidogrel 75 mg tablet (Plavix) 75 mg PO DAILY #30 tabs 12/17/23 02/26/24 Unknown Rx duloxetine 30 mg capsule,delayed 30 mg PO DAILY #90 caps 01/27/24 02/24/24 Unknown Rx release hydroxyzine HCl 25 mg tablet 25 mg PO TID PRN itching #90 tabs 01/27/24 02/24/24 02/24/24 Rx metoprolol succinate 25 mg 25 mg PO DAILY #90 tabs 01/27/24 02/26/24 Unknown Rx tablet,extended release 24 hr polyethylene glycol 3350 17 gram 17 g PO DAILY #100 ea 01/27/24 02/24/24 Unknown Rx oral powder packet (Miralax) sennosides 8.6 mg tablet (senna) 8.6 mg PO DAILY #90 tabs 01/27/24 02/24/24 Unknown Rx betamethasone valerate 0.1 % 1 applic topical BID 02/24/24 02/24/24 Unknown History topical cream clotrimazole 1 % topical cream 1 applic topical BID 02/24/24 02/24/24 Unknown History gabapentin 300 mg capsule 600 mg PO TID 02/24/24 02/26/24 Unknown History metformin 500 mg tablet 500 mg PO DAILY 02/24/24 02/26/24 Unknown History naloxone 0.4 mg/mL injection 0.4 mg SUBCUT Q3M PRN OPIATE 02/24/24 02/24/24 Unknown History solution OVERDOSE oxycodone 5 mg tablet 5 mg PO Q4H PRN Pain 02/24/24 02/24/24 02/24/24 History rivaroxaban 2.5 mg tablet (Xarelto) 2.5 mg PO BID 02/24/24 02/24/24 Unknown History Allergies Allergy/AdvReac Type Severity Reaction Status Date / Time codeine Allergy ALGY-Hives Verified 11/24/23 09:38 ketorolac [From Toradol] Allergy ALGY-Hives Verified 11/24/23 09:38 trazodone Allergy ALGY-Difficulty Verified 11/24/23 09:38 Swallowing Current Medications Generic Name Dose Route Start Last Admin Trade Name Freq PRN Reason Stop Dose Admin Aspirin 81 mg 02/26/24 09:00 02/26/24 08:48 Aspirin 81 Mg Ec Tablet PO 81 mg DAILY BATOOL Administration Clopidogrel Bisulfate 75 mg 02/26/24 09:00 02/26/24 08:48 Clopidogrel 75 Mg Tablet PO 75 mg DAILY BATOOL Administration Diphenhydramine HCl 50 mg 02/25/24 22:01 02/26/24 01:15 Diphenhydramine 50 Mg/Ml Sdv 1ml IM 50 mg ONCE PRN Administration Severe Extrapyramidal Symptoms Gabapentin 600 mg 02/26/24 09:00 02/26/24 14:27 Gabapentin 300 Mg Capsule PO 600 mg TID BATOOL Administration Haloperidol Lactate 5 mg 02/25/24 22:01 02/26/24 01:15 Haloperidol Inj 5 Mg/Ml Inj 1 Ml IM 5 mg Q4H PRN Administration Severe Aggression Hydrochlorothiazide 25 mg 02/26/24 09:00 02/26/24 08:48 Hydrochlorothiazide 25 Mg Tablet PO 25 mg DAILY BATOOL Administration Lisinopril 20 mg 02/26/24 09:00 02/26/24 08:48 Lisinopril 20 Mg Tablet PO 20 mg DAILY BATOOL Administration Lorazepam 2 mg 02/25/24 22:01 02/26/24 01:15 Lorazepam 2 Mg/Ml Inj 1 Ml IM 2 mg Q4H PRN Administration Severe Aggression Metformin HCl 500 mg 02/26/24 09:00 02/26/24 08:47 Metformin 500 Mg Tablet PO 500 mg DAILY BATOOL Administration Metoprolol Succinate 25 mg 02/26/24 09:00 02/26/24 08:48 Metoprolol Succinate Er (24 Hr) 25 Mg Tablet PO 25 mg DAILY BATOOL Administration Nicotine Polacrilex 4 mg 02/26/24 15:26 02/26/24 15:39 Nicotine 4 Mg Lozenge MUCOUS MEM 4 mg Q2H PRN Administration NICOTINE CRAVINGS Olanzapine 5 mg 02/25/24 22:01 02/25/24 22:59 Olanzapine 5 Mg Odt PO 5 mg Q4H PRN Administration Agitation/Psychosis PFSH Acute PFSH: Medical History (Updated 02/26/24 @ 17:34 by Juventino Hicks MD) Arteriovenous graft infection Alcohol dependence Psychiatric care 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 Prediabetes Erectile dysfunction Chronic pain in left shoulder Had pain present when seen 12/2021 on his first visit and thought he might have a rotator cuff tear then Generalized anxiety disorder with panic attacks Benzodiazepine abuse Dental caries associated with enamel hypomineralization Cigarette smoker Claudication in peripheral vascular disease Since 2017 with walking 100 yards or less Chronic low back pain Torn rotator cuff Hypertension Depression Surgical History History of coronary angioplasty with insertion of stent Family History Other CAD (coronary artery disease) Social History Smoking and tobacco/nicotine status: current every day tobacco/nicotine user cigarettes Packs smoked per day: 2 Alcohol intake: current Alcohol intake frequency: few times a week Substance/Drug Use: never Marital status: Single Number of children: 0 Current occupational status: employed Vitals/I&O/Wt Last Vital Signs Temp 97.7 F 02/26/24 14:00 Pulse 84 02/26/24 14:00 Resp 17 02/26/24 14:00 BP 116/74 02/26/24 14:00 Pulse Ox 97 02/26/24 14:00 O2 Del Method Room Air 02/25/24 22:13 Weight last 48 hrs Weight 104.326 kg Physical Exam Narrative: General: No acute distress, AO x3 HEENT: PERRLA, pupils bilaterally equal and reactive Chest: Normal vesicular breath sounds, no added sounds, equal good air entry bilaterally CVS: S1-S2 regular, no murmurs, no tachycardia, no gallops, no rubs Abdomen: Soft, nontender, no organomegaly, bowel sounds present Neuro: No focal deficits, no facial deformity, AO x3, power 5/5 in all limbs Skin: OTHER: Data 02/25/24 18:11 02/25/24 18:11 A&P Assessment and plan (1) Encounter for wound care: As per patient he underwent vascular graft exploration for graft infection from Staphylococcus 4 weeks ago at [facility]. Was on IV vancomycin till 02/21. Will request documents from outside hospital. Check CBC, CMP, blood culture, ESR, CRP. Check left lower limb CT without contrast. Wound care with wet-to-dry gauze under sterile precautions twice daily. Patient will need to follow-up as an outpatient to wound care clinic as well. Most likely he will need skin graft for approximation. (2) Arteriovenous graft infection: Will request documents from outside hospital. No antibiotics for now. For now infection less likely (3) CAD (coronary artery disease): Denies any active chest pain. Check A1c, lipid panel. Continue with home dose of aspirin, statin, Plavix. Qualifiers: Associated angina: with unstable angina Coronary Disease-Associated Artery/Lesion type: [place] artery [place] vs. transplanted heart: [place] heart Qualified Code(s): I25.110 - Atherosclerotic heart disease of [place] coronary artery with unstable angina pectoris (4) Peripheral vascular disease: (5) Suicidal ideation: As per primary team Plan Hypertension: Goal blood pressure less than 140/90 mmHg. Continue with home dose of metoprolol, lisinopril, hydrochlorothiazide. Uptitrate for goal blood pressures. Last echocardiogram from July 2023 showed an EF of 45 to 50% with mild to moderate lateral wall hypokinesia, stage I diastolic dysfunction. Care discussed in detail with patient's nurse at bedside. All the questions were answered. Please call back with any questions. Cardiac diet Consult Attestations Medical Necessity Statement: As per primary team. Diagnoses Encounter for wound care Arteriovenous graft infection T82.7XXA Coronary artery disease involving [place] coronary artery of [place] heart with unstable angina pectoris I25.110 Associated angina: with unstable angina Coronary Disease-Associated Artery/Lesion type: [place] artery [place] vs. transplanted heart: [place] heart Peripheral vascular disease I73.9 Suicidal ideation R45.851
[2024-02-26] MEDS: hyDROXYzine 25 mg Capsule 50 MG PO ×2 (16:45→21:53)
--- NOTE | 2024-02-26 17:24 | CTR_ITS ---
PROCEDURE INFORMATION: Exam: CT Left Lower Extremity Without Contrast Exam date and time: 02/27/2024 6:51 AM Age: 44 years old Clinical indication: Pain; Knee and lower leg; Left; Prior surgery; Surgery type: Vascular graft; Additional info: Post vascular graft infection TECHNIQUE: Imaging protocol: CT of the left lower extremity without contrast was performed. Radiation optimization: All CT scans at this facility use at least one of these dose optimization techniques: automated exposure control; mA and/or kV adjustment per patient size (includes targeted exams where dose is matched to clinical indication); or iterative reconstruction. COMPARISON: CT angio runoff 12/02/2023. Images and report for a recent lower extremity venous ultrasound exam on 02/24/2024 are not available. RADIATION DOSE METRICS: Total DLP (mGy-cm): 1378.78 FINDINGS: Evidence of interval surgery left medial thigh and proximal lower leg compared to prior exam in November 2023. A distal femoral to distal popliteal artery bypass graft is present. Graft patency cannot be confirmed on this unenhanced exam. There is ill-defined fluid and soft tissue thickening at the surgical site, but no discrete circumscribed fluid collection is identified. No acute osseous abnormality of the tibia, fibula, patella, or imaged portion of the femur is seen. No significant knee joint effusion. CT/CT lower leg LT wo con* [id number] IMPRESSION: Since prior CT exam in November 2023, the patient has had surgery with placement of a distal femoral artery to distal popliteal artery bypass graft. No circumscribed fluid collection indicative of abscess is seen. There are residual postoperative soft tissue changes at the operative site, nonspecific. Please correlate with clinical exam to determine presence or absence of local infection at the operative site versus sterile postop changes.
--- NOTE | 2024-02-26 18:31 | PC.NURSE ---
MEDICAL RELEASE OF INFORMATION PAPERWORK FAXED TO [facility] at 9702 FAX NUMBER [phone] MERLENEE OF NURSE PATENT CLERK TANNER. CALLED HOSPITAL AT [phone] ASK FOR NURSING PHARM SPEC.
[2024-02-26 18:32] LABS: Basophils # 0.1 10^3/uL (0.0-0.1); Basophils % 0.6 %; Eosinophils # 0.1 10^3/uL (0.0-0.8); Eosinophils % 0.6 %; Hematocrit 44.9 % (37-53); Lymphocytes # 4.3 10^3/uL (0.8-4.8); Lymphocytes % 32.2 %; Mean Corpuscular HGB Conc 32.1 g/dL (30-55); Mean Corpuscular Hemoglobin 27.4 pg (27-33); Mean Corpuscular Volume 85.5 fl (82-101); Mean Platelet Volume 8.5 fL (7.4-10.4); Monocytes # 0.9 10^3/uL (0.2-0.9); Neutrophils # 7.97 10^3/uL (1.8-7.7); Neutrophils % 59.2 %; Nucleated Red Blood Cells % 0 %; Platelet Count 463 10^3/cmm (157-399); Red Blood Count 5.25 10^6/uL (3.85-5.65); Red Cell Distribution Width 13.4 % (12.1-15.1); White Blood Count 13.46 10^3/uL (3.29-11.43)
--- NOTE | 2024-02-26 18:34 | PC.NURSE ---
STERILE DRESSING CHANGE PREFORMED ON PT LEFT KNEE BY RN ASSISTED BY THIS STONE PRODUCT FABRICATOR.PT HANDLED PROCEDURE WELL.
[2024-02-26 18:48] LABS: Erythrocyte Sedimentation Rate 31 mm/hr (0-10)
[2024-02-26 19:10] LABS: Procalcitonin 0.05 ng/mL (0-0.5); Thyroid Stimulating Hormone 0.32 uIU/mL (0.27-4.20); Vitamin B12 586 pg/mL (232-1245)
[2024-02-26 19:21] LABS: Alanine Aminotransferase 36 U/L (0-41); Albumin Level 4.5 g/dL (3.5-5.2); Alkaline Phosphatase 112 U/L (40-130); Anion Gap 18.2 (5-19); Aspartate Amino Transferase 28 U/L (0-40); Blood Urea Nitrogen 13 mg/dL (6-20); Calcium 9.5 mg/dL (8.5-10.5); Carbon Dioxide 23 mmol/L (22-29); Chloride 96 mmol/L (98-107); Creatinine Clr Calc Pharmacy 153.4144; Glucose 167 mg/dL (65-115); Iron 27 ug/dL (59-158); Osmolality Calculated 282 mOsm/kg (285-295); Percent Saturation 8.7 % (20-50); Potassium 3.2 mmol/L (3.5-5.1); Sodium 134 mmol/L (136-145); Total Bilirubin 0.2 mg/dL (0.15-1.2); Total Iron Binding Capacity 309 mcg/dl; Total Protein 8.5 g/dL (6.6-8.7); Unsaturated Iron Binding 282 ug/dL (112-347)
[2024-02-26 19:56] LABS: Estmated Average Glucose 160; Hemoglobin A1C 7.2 % (4.0-6.0)
[2024-02-26 20:04] VITALS: BP 129/82; PULSE 72; RESP 77; TEMP 36.7; O2SAT 98
--- NOTE | 2024-02-26 20:17 | W.PM.NPUH&PS ---
Providers/Chief Complaint Admitting Physician: Gigi Wagner MD Primary Care Provider: Nilesh Hutchinson MD Chief Complaint: SI HPI NPU History of Present Illness Rudy Crawford is a 44 year old male with a history of multiple inpatient psychiatric hospitalizations mostly recently transferred to [facility] in [place] in November for a surgical intervention in his lower left leg. The patient had reported that he had been discharged from [facility] on 02/23/2024 without his pain medicines. The patient had reported that he had become upset and had thrown away his discharge plan that had included how to treat his lower left leg wound. He had presented on 02/25/2024 to the emergency department with suicidal ideation. He reports that he has had recurring hospitalizations over the past 2 months for his complications with his lower left leg as he had reported having a staph infection following a venous graft. He reports having infrequent thoughts of suicide. He had reported increased anxiety as he states that he has not been on his pain medication or his Xanax for the past 3 days. He reports that he has been sleeping poorly. He endorses some feelings of hopelessness. He has reported past history of alcohol abuse but reports that he has been sober with no alcohol use in over 5 months. He reports no substantiative changes since his last hospitalization other than an apparent switch from Klonopin to Xanax per patient. Current medications: Atorvastatin, aspirin, betamethasone, Plavix, Cymbalta, gabapentin, hydroxyzine, metformin, metoprolol, lisinopril Excerpt from Discharge Summary NPU on 12/08/23 Discharge Diagnosis (1) Claudication in peripheral vascular disease: Status: Acute Permanent problem details: Since 2017 with walking 100 yards or less (2) Peripheral vascular disease: Status: Acute (3) Hyperlipemia: Status: Acute (4) Prediabetes: Status: Acute (5) Hypertension: Status: Acute Qualifiers: Hypertension type: primary hypertension Qualified Code(s): I10 - Essential (primary) hypertension Reason for Visit SI Brief History: History of Present Illness Rudy Crawford is a 43 year old male who presents with suicidal ideation to the emergency department stating that he was depressed and tired and significant pain. He reports that he has not been using alcohol. He does report that he had missed his appointment for his surgeon to manage his peripheral vascular disease yesterday. He reported that he had gone to [place] but was kicked out because he had not given up all of his medications. He reports that he has not been abusing any alcohol nor has you been abusing his Klonopin. He has reported that he continues to be tired of being homeless and states that he has had thoughts of hurting himself with plans to run into traffic. He had reported having problems with memory and concentration. He reports chronic pain issues in his back as well. The patient had stated that he had tried to remain hopeful about his girlfriend finding him in her place but believes that this will not be available until December. He reports low energy and low motivation. He reports having more frequent crying episodes. He states that his medications for depression had not been helpful so he had discontinued them. He reports no substantial changes since his last hospitalization. NPU Discharge Summary from 11/15/23 Diagnoses at Discharge Discharge Diagnosis (1) Major depressive disorder: Status: Acute (2) Panic disorder: Status: Inactive (3) Alcohol dependence: Status: Acute (4) Generalized anxiety disorder with panic attacks: Status: Acute Reason for Visit SI Brief History: History of Present Illness Rudy Crawford is a 43 year old male Admitted with suicidal ideation after presenting to the emergency department stating that he wished to jump out in front of a car. The patient had reported that he had been in a psychiatric facility at [facility] for the past week and was discharged on on new psychiatric medications. He had complained that he had not been able to urinate since starting his Seroquel. He reports that he has been more depressed currently. He reports that he has continued panic attacks. He reports that he has continued feelings of hopelessness and worthlessness. He reports that he has not used any illicit drugs or alcohol in over 3 months now. He reports that his Klonopin has been lowered from 6 mg/day to 3 mg/day over the last 6 weeks. He reports that he has been attempting to work but states that it has not been successful recently. He reports that he was previously staying in a penitentiary in [place] but states that he has been homeless for weeks. Inpatient psychiatric history: Multiple inpatient stays over the last year. Outpatient psychiatric history: He has recently started with outpatient therapy and medication management at the [facility]. Current medications: Klonopin 1 mg 3 times a day, Plavix 75 mg daily, Cymbalta 60 mg twice a day, Lamictal 75 mg daily, lisinopril, nitroglycerin, propranolol 20 mg 3 times a day, Seroquel 300 mg at night, hydrocodone 1 tablet 4 times a day for pain Medical history: As previous with history of prediabetes, erectile dysfunction, left shoulder pain, peripheral vascular disease with a history of carotid Stenosis, 11/10/23:Doppler of the left lower extremity showed complete occlusion of the distal superficial femoral artery Surgical history: Rotator cuff surgery Allergies: codeine, toradol, trazodone Drug and alcohol hx: sober off alcohol for 4 months, Social Hx: see below, no new changes. Discharge summary from NPU on 08/18/23 Diagnoses at Discharge Discharge Diagnosis (1) Major depressive disorder: Status: Acute(2) Panic disorder: Status: Inactive(3) Alcohol dependence: Status: Acute(4) Generalized anxiety disorder with panic attacks: Status: Acute Reason for Visit Homicidal Brief History: History of Present Illness Rudy Crawford is a 43 year old male who presented to the emergency department with the following report: Chief Complaint: Psychiatric Symptoms Stated Complaint: Homicidal Time Seen by Provider: 08/13/23 14:05 Source: patient Mode of arrival: ambulatory Limitations: no limitations History of Present Illness: ? Patient is a 43-year-old male presents to ED today stating he is homicidal towards drug addicts and meth heads .? He states if one more meth head talks to him or knocks on his door then he is going to hurt them. No specific plan. Denies suicidal ideations. No psychosis symptoms. Recently admitted to [facility] earlier this month. Reports being drug free for 8 years. Does have a history of alcohol abuse. ? MD complaint: other (homicidal ideation) Onset (ago): day(s) Duration: constant Relieving factors: none Context: significant life stressor Associated psychiatric symptoms: homicidal ideation Associated symptoms: Reports homicidal ideation; Deny auditory hallucinations, visual hallucinations, depression or suicidal ideation Treatments prior to arrival: none He was admitted to the neuropsychiatric unit for definitive treatment of those issues.? He is known to this loan underwriter through past inpatient hospitalization.? His last psychiatric hospitalization ended 07/30/2023 and an excerpt of that summary is included below for context and the fact that there have been no substantive changes.? It is noteworthy that a week later on 08/06/2023 he was admitted to the medical unit where some cardiac disease was noted and plans for continued follow-up were executed.? He was discharged on 08/12/2023 from that and he returns now reporting being overwhelmed at home secondary to meth heads knocking on his door etc.? He endorsed homicidality towards these individuals and we had a long discussion about the legal implications of him acting out in an aggressive way.? We also had a long discussion about concerns related to malingering as well as concerns that this may have something to do with him not having enough Klonopin available even though he should have extra given the hospitalization.? He categorically denies that this has anything to do with the Klonopin.? We discussed moving forward with a plan to taper the Klonopin by 0.5 mg every 2 weeks such that he will be on 3-1/2 mg total daily for the next 2 weeks.? We discussed this being a short hospitalization and a plan for him to reconsider where he is living if he can get along with the people there. Per his 07/30/2023 [facility] inpatient psychiatric discharge summary: Discharge Diagnosis (1) Major depressive disorder:? ? ? Status: Acute(2) Panic disorder:? ? ? Status: Inactive(3) Alcohol dependence:? ? ? Status: Acute(4) Generalized anxiety disorder with panic attacks:? ? ? Status: Acute Reason for Visit Reason for Visit: ? psych eval? Brief History: History of Present Illness Rudy Crawford is a 43 year old male recently discharged last month from the neuropsychiatric unit who presented to the emergency room complaining of suicidal ideation and continued depression.? The patient had stated that he had been discharged from [facility] yesterday and reports that over the past 4 days his Klonopin had been decreased from 6 mg a day to 2 mg a day within a short period of time.? He reports some irritability and agitation since this reduction.? He had denied having used alcohol for the past few weeks.? He reports that he has been homeless.? He had reported that he had been struggling with panic attacks as well.? Patient had stated that he has been feeling more hopeless and worthless.? He reports sleep continuity disruption.? He had reported that he was hopeful of finding a penitentiary in the nearby area.? He reports no acute changes otherwise and stated above. Current medications: gabapentin, aspirin, lisinopril, propranolol, quetiapine, trazodone, klonopin Previous discharge summary from NPU on 05/23/23 History of Present Illness Rudy Crawford is a 43 year old male who presented to the emergency department with the following report: Chief Complaint: Psychiatric Symptoms Stated Complaint: mag Time Seen by Provider: 05/22/23 16:58 History of Present Illness: Presents to the ER with complaints of suicidal ideations.? Patient said the world just coming down around him.? Last week patient lost his job, got really really drunk and decided to check himself into rehab down at [place] spent 3 days they are in when he got out felt that it he need just needed more time to help.? Patient is having bad thoughts of suicide.? Patient was on a bridge today and thought of jumping.? Since patient lost his job and is planning on moving in with his girlfriend and having major life stressors. He was admitted to the neuropsychiatric unit for the definitive treatment of those issues.? Patient presented today reporting that things are very stressed he reports that his anxiety is out of control and that he lost his job.? He reports that he is temporarily homeless and that he is moving into a new place next week with some woman that he has a relationship with.? He endorsed having suicidal thoughts but reports those have diminished.? He endorses a history of having anxiety helps with Klonopin.? He reports that his anxiety gets so tty-ey-jibvvvy that he has chest pains and feels like he might have a heart attack.? He endorses maybe having a cardiac history.? We reviewed his previous hospitalization from August of last year and an excerpt of that stay is included below for context and his report of limited/no substantive changes since that today.? Outside of his current living arrangement issues.? We discussed possible medications for his anxiety and he was very focused on not changing the Klonopin which we discussed that 2 mg p.o. 3 times daily is a very high dose.? He reports it has been very effective but cannot explain why he was always anxious if it is very effective.? He is not interested in any medications like SSRIs etc. reporting he knows what works.? He had initially talked about leaving AMA but then reported he would stay but he seemed quite ambivalent about this stay overall. Per his 09/25/2022 [facility] inpatient psychiatric discharge summary: Discharge Diagnosis (1) Panic disorder:? ? ? Status: Acute(2) Alcohol dependence:? ? ? Status: Acute(3) Benzodiazepine abuse:? ? ? Status: Acute Reason for Visit Reason for Visit: ? Suicidal ideation? Brief History: History of Present Illness Rudy Crawford is a 42 year old male who had presented to his primary care nurse on 09/22/2020 2 in the morning requesting treatment for alcohol withdrawal.? He reports that he wishes to stop his consumption of alcohol and stated that he was having withdrawal symptoms as he had reported having last consumed alcohol on the night of 09/21/2022.? He had reported having consumed a gallon of fireball whiskey and reports having consumed a case of beer on a daily basis.? He reports his consumption of alcohol has been increasing since he was taken abruptly off of his prescribed Klonopin of 2 mg/day.? He had reported a previous history of panic attacks and considerable anxiety that had been worsening his cardiac problems.? He states that he had not been prescribed Klonopin for over a month.? He endorses a past history of withdrawal seizures although it is uncertain as to whether that was associated with withdrawal from benzodiazepines or alcohol.? He had acknowledged no depression but states that his panic attacks have been more frequent over the past few months.? He reports an extended history of chest pain shortness of breath difficulty swallowing and feeling like he is going to .? He reports that these panic attacks occur without triggers frequently. Current medications: gabapentin 300mg bid, hydrochlorothiazide/lisinopril: 25mg/20mg, hydroxyzine 25mg bid Previous admission on 06/22/2022 at NPU: Rudy Crawford is a 42 year old single white male with a history of panic attacks coronary artery disease and hypertension who reports to the emergency department with suicidal ideation with a plan to jump off of a bridge.? He had reported that he had been feeling more depressed and reported uncontrolled anxiety over the past 3 months since he had ran out of his Klonopin 1 mg twice a day.? He had reported that he has had chronic panic attacks for many years with unknown triggered panic attacks lasting approximately 40 minutes with associated chest pain shortness of breath numbing and tingling in his fingers and difficulty with breathing.? He reports that his panic attacks have led him to the emergency department multiple times with complaints of chest pain.? He reports that he had a heart attack a few years ago and he has had these panic attacks since that time.? The patient reports being burdened by anxiety over the past few months.? He reports that he had been unable to receive his Klonopin in [place], [place] where he had moved.? He reports that he had recently moved back to the area and had not been able to see his primary care physician yet to get back on his Klonopin.? The patient had reported diminished energy low motivation and depressed mood for the past month.? He had endorsed having suicidal thoughts.? He denied any psychotic symptoms.? He denied any history of manic symptoms.? He had reported a long history of chronic worry since his heart attack occurred. Past psychiatric history: Patient has a history of 1 inpatient hospitalization 2 years ago for suicidal ideation at [facility] in [facility].? He had reported no history of psychotherapy but reports a history of having been treated for panic attacks and depression with medication trials on Lexapro and xanax.? He also reported a history of having been treated for opioid abuse with a history of having been in methadone clinic for a few years having last used methadone 6 years ago. Medical history: Chronic lower back pain peripheral vascular disease with claudication history of carotid stenosis history of hypertension, HTN Surgical history he has a history of placement of stent in the coronary artery he has a history of repair of a torn rotator cuff Allergies: Toradol Medications: Klonopin 1 mg twice a day aspirin 81 mg in the morning clonidine 0.1 mg twice a day nitroglycerin as needed Drug and alcohol history: He reports having begun use of opiates at the age of [age].? He had reported last use of opiates for treating pain few days ago.? He had reported a past history of methadone treatment but reports no substance abuse inpatient or rehabilitation in the past.? He had reported a past history of alcohol abuse but reports that he has not been drinking recently.? He denies any history of benzodiazepine misuse. Family psychiatric history: alcohol abuse-father Social History: Patient was born and raised in [facility].? He is currently living in [facility].? He has never been and has no children.? He was raised by his biological parents and is the youngest of 5.? 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 He denies any significant history of trauma.? He denies any history of legal issues. Update: Patient had endorsed recently having been hospitalized at [facility] in late July in an attempt to help with detoxification off of benzodiazepines and alcohol.? He reports that he had left and intensive inpatient rehabilitation facility in [place] in early August 2022.? His living situation is also changed he is currently staying with a friend near [facility]. Hospital Course He slowly acclimated to the individual, group and milieu therapies provided.? A growing theme in his visits seems to be his Klonopin.? His last hospitalization he came in left on the same day in the drive for leaving appeared to be Klonopin.? He began to leave A at 1 point and the issue of note was Klonopin.? Prior to discharge this loan underwriter reached out to his current prescriber who identified that he would like him to be on the lower dose but seemed very hesitant to be the water truck driver of that change.? We agreed to drop him to 1 mg p.o. 4 times daily from the 2 mg p.o. 3 times daily.? He was given a 2-week prescription that was going to be active in 2 weeks as he left with 56 1 mg tablets that would serve him for 4 times daily for the next 2 weeks.? Therefore he had a month of medication in his outpatient provider agreed that he would see him and consider dropping it down to 3.5 mg daily otherwise he refused the Vivitrol injection reporting that he still wants to drink some and we identified that being an issue like Klonopin is a bad idea.? He was also discharged on Celexa 20 mg daily Neurontin 600 mg p.o. twice daily.? He was working with the social work team for possible treatment options but was very resistant to the options that were identified.? He had modest improvement and he was able to contract for safety outside of the hospital prior to discharge.? During the hospitalization, patient had routine laboratory studies which were within normal limits except for few outliers.? Additionally there was a general medical evaluation which was also within normal limits and revealed no new acute processes. ?At the time of discharge, he denied psychosis or lethality.? Mood and anxiety were well managed.? Patient endorsed a plan to avoid all drugs of abuse and follow-up with the aftercare recommendations of the treatment team.? Patient was evaluated and deemed to be absent credible lethality, and achieved a maximum benefit from an inpatient hospitalization, so was discharged. Hospital Course Hospital Course During the hospitalization, the patient had routine laboratory studies which were within normal limits except for a few outliers.? Additionally, there was a general medical evaluation which was also within normal limits and revealed no new acute processes.? At the time of discharge, lethality was denied and psychosis was resolving.? Mood and anxiety were well managed.? The patient endorsed a plan to avoid all drugs of abuse and follow up with the aftercare recommendations of the treatment team.? The patient was evaluated and deemed to be absent credible lethality and had achieved the maximum benefit from an inpatient hospitalization, and so was discharged.? Seroquel was discontinued due to concerns that it worsened the patient's urinary retention. Another CV arterial duplex of the lower extremity revealed arterial occlusion and it was similar to a recent study and the patient was planning on following up with his Vascular Surgeon Dr. Garett Benton as previously done. Reason for Visit: Meds NPU Home Medications Medication Instructions Recorded Confirmed Last Taken Type lisinopril 20 1 tab PO QAM 11/10/23 02/26/24 02/24/24 History mg-hydrochlorothiazide 25 mg tablet quetiapine 300 mg tablet (Seroquel) 300 mg PO BEDTIME 12/01/23 02/26/24 Unknown History aspirin 81 mg tablet,delayed 81 mg PO DAILY #90 tabs 12/17/23 02/26/24 02/24/24 Rx release atorvastatin 80 mg tablet 80 mg PO BEDTIME 30 days #30 tabs 12/17/23 02/26/24 Unknown Rx clopidogrel 75 mg tablet (Plavix) 75 mg PO DAILY #30 tabs 12/17/23 02/26/24 Unknown Rx duloxetine 30 mg capsule,delayed 30 mg PO DAILY #90 caps 01/27/24 02/24/24 Unknown Rx release hydroxyzine HCl 25 mg tablet 25 mg PO TID PRN itching #90 tabs 01/27/24 02/24/24 02/24/24 Rx metoprolol succinate 25 mg 25 mg PO DAILY #90 tabs 01/27/24 02/26/24 Unknown Rx tablet,extended release 24 hr polyethylene glycol 3350 17 gram 17 g PO DAILY #100 ea 01/27/24 02/24/24 Unknown Rx oral powder packet (Miralax) sennosides 8.6 mg tablet (senna) 8.6 mg PO DAILY #90 tabs 01/27/24 02/24/24 Unknown Rx betamethasone valerate 0.1 % 1 applic topical BID 02/24/24 02/24/24 Unknown History topical cream clotrimazole 1 % topical cream 1 applic topical BID 02/24/24 02/24/24 Unknown History gabapentin 300 mg capsule 600 mg PO TID 02/24/24 02/26/24 Unknown History metformin 500 mg tablet 500 mg PO DAILY 02/24/24 02/26/24 Unknown History naloxone 0.4 mg/mL injection 0.4 mg SUBCUT Q3M PRN OPIATE 02/24/24 02/24/24 Unknown History solution OVERDOSE oxycodone 5 mg tablet 5 mg PO Q4H PRN Pain 02/24/24 02/24/24 02/24/24 History rivaroxaban 2.5 mg tablet (Xarelto) 2.5 mg PO BID 02/24/24 02/24/24 Unknown History Allergies Allergy/AdvReac Type Severity Reaction Status Date / Time codeine Allergy ALGY-Hives Verified 11/24/23 09:38 ketorolac [From Toradol] Allergy ALGY-Hives Verified 11/24/23 09:38 trazodone Allergy ALGY-Difficulty Verified 11/24/23 09:38 Swallowing PFSH NPU PFSH: Medical History (Updated 02/26/24 @ 20:32 by Keny Andrews MD) Arteriovenous graft infection Alcohol dependence Psychiatric care 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 Prediabetes Erectile dysfunction Chronic pain in left shoulder Had pain present when seen 12/2021 on his first visit and thought he might have a rotator cuff tear then Generalized anxiety disorder with panic attacks Benzodiazepine abuse Dental caries associated with enamel hypomineralization Cigarette smoker Claudication in peripheral vascular disease Since 2017 with walking 100 yards or less Chronic low back pain Torn rotator cuff Hypertension Depression Surgical History History of coronary angioplasty with insertion of stent Family History Other CAD (coronary artery disease) Social History Smoking and tobacco/nicotine status: current every day tobacco/nicotine user cigarettes Packs smoked per day: 2 Alcohol intake: current Alcohol intake frequency: few times a week Substance/Drug Use: never Marital status: Single Number of children: 0 Current occupational status: employed Mental Status Exam MSE Comments: This is an obese white male in hospital scrubs with adequate grooming and fair eye contact. There is no evidence of any abnormal involuntary motor movements tics or tremors appreciated. He was cooperative with exam in moderate distress. Speech was normal in rate, rhythm and prosody. Mood was described as anxious. His affect was dysphoric and mood congruent. Thought process was linear and organized. Thought content: Patient endorsed suicidal ideation with no plan and denies homicidal ideation, there were no delusions reported or noted, He denied any auditory or visual hallucinations. Attention and concentration appeared intact and memory appeared mostly reliable but none were formally tested. He is alert and oriented x3. Insight, judgment and impulse control are limited versus impaired. He had reported significant pain in his lower left leg with wound bandaged at this time. Vitals/I&O/Wt Last Vital Signs Temp 98.1 F 02/26/24 20:04 Pulse 72 02/26/24 20:04 Resp 77 H 02/26/24 20:04 BP 129/82 02/26/24 20:04 Pulse Ox 98 02/26/24 20:04 O2 Del Method Room Air 02/25/24 22:13 Weight last 48 hrs Weight 104.326 kg Data NPU 02/26/24 18:01 02/26/24 18:01 Micro: Microbiology 02/26/24 17:58 Blood Culture - Preliminary Blood SPECIMEN COLLECTED 02/26/24 18:01 Blood Culture - Preliminary Blood SPECIMEN COLLECTED Microbiology 02/26/24 17:58 Blood Blood Culture - Preliminary SPECIMEN COLLECTED 02/26/24 18:01 Blood Blood Culture - Preliminary SPECIMEN COLLECTED A&P Assessment and plan (1) Major depressive disorder: (2) Panic disorder: (3) Alcohol dependence: Qualifiers: Substance use status: in remission Qualified Code(s): F10.21 - Alcohol dependence, in remission (4) Generalized anxiety disorder with panic attacks: Plan Patient is a 44-year-old white male admitted with suicidal ideation, worsening depression currently sober for last 5 months denying homelessness. 1. Restart cymbalta and xanax at 1mg tid. 2.? Encourage individual, group and milieu therapy 3.? Continue q-15 minute check for safety 4.? Recommend sober living treatment at the highest level of care to which the patient is willing to commit. 5. Med consult regarding L lower leg wound. Wound care evaluation. Involuntary Hold Information 96 Hour Hold: 96 Hour Involuntary Admission: No Attestations NPU Medical Necessity Statement*: Inpatient hospitalization is medically necessary and clinically appropriate intervention at this time. We will monitor medications and make changes as indicated. Patient will be in the hospital for over 2 midnights. His likely length of stay is 3 to 5 days. Coding Level of Care Code Acute Code for [facility] Fwd Diagnoses Major depressive disorder F32.9 Panic disorder F41.0 Alcohol dependence in remission F10.21 Substance use status: in remission Generalized anxiety disorder with panic attacks F41.1; F41.0
--- NOTE | 2024-02-26 20:24 | PC.NURSE ---
Received an order/ok to post pone CT till 7 am due to high patient acuity and npu staff not able to leave the unit to take patient for procedure.
[2024-02-26] MEDS: quetiapine 300 mg Tablet PO (20:34)
[2024-02-26] MEDS: atorvastatin 40 mg Tablet 80 MG PO (20:34)
[2024-02-26] MEDS: ALPRAZolam 0.5 mg Tablet 1 MG PO (20:34)
--- NOTE | 2024-02-26 22:46 | ECG_ITS ---
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 Measurements Intervals [place] Rate: 85 P: 8 AR: 165 QRS: 34 QRSD: 111 T: 68 QT: 416 QTc: 497 Interpretive Statements SINUS RHYTHM INCOMPLETE RIGHT BUNDLE BRANCH BLOCK [90+ ms QRS DURATION, TERMINAL R IN V1/V2, 40+ ms S IN I/aVL/V4/V5/V6] INFERIOR MYOCARDIAL INFARCTION , PROBABLY OLD [40+ ms Q WAVE AND/OR ST/T ABNORMALITY IN II/aVF] Compared to ECG 02/24/2024 08:47:45 Incomplete right bundle-branch block now present Myocardial infarct finding now present T-wave abnormality no longer present Electronically Signed On 02-27-2024 11:41:28 CDT by Ariel Ontiveros M.D. [id number]
--- NOTE | 2024-02-26 23:38 | PC.NURSE ---
Patient complaining of pain in his leg which was causing him chest pain. Vitals obtained, Dr Conley on unit and aware. Stat EKG ordered and then Dr Conley was called that results were available and he said to notify to hospitalist. Hospitalist put in new orders and also ordered prn tylenol, see MAR and orders. horticultural services supervisor present and aware.
[2024-02-26 23:55] VITALS: BP 102/70; PULSE 96; RESP 17; O2SAT 94
[2024-02-27 00:01] VITALS: BP 82/44; PULSE 114; RESP 18; O2SAT 97
[2024-02-27 00:04] VITALS: BP 82/42; PULSE 116; RESP 18; O2SAT 96
[2024-02-27 00:08] LABS: Troponin(5th) Baseline 7 ng/L (0-15)
[2024-02-27] MEDS: HYDROcodone-acetaminophen 5-325 mg Tablet 1 TAB PO ×4 (00:10→22:01)
[2024-02-27 00:30] VITALS: BP 103/62; PULSE 91; RESP 18; O2SAT 94
--- NOTE | 2024-02-27 00:33 | PC.NURSE ---
Pt vitals signs before administration of sublingual nitro for pt co chest pain is as follows BP: 102/70, DC 96, O2 94. Pt was given the nitro and after five minutes pt vital signs were as follows BP:82/44, DC 114, O2 97 and pt rated chest pain a zero on a scale of 1 to 10. 30 minutes later pt vital signs were as follows BP 103/62 DC 91 O2 94. No distress was noted at this time / support was voiced and continuation of care is ongoing.
--- NOTE | 2024-02-27 00:47 | P.EN_ITS ---
Event Note Event Note: Having an episode of chest pain earlier today, Reports history of coronary disease with prior stenting of RCA. At home he is on aspirin, and was on Xarelto. He was having some pain in his right leg, and had received hydrocodone which appears as alleviated his pain so far. Nitroglycerin was ordered, but he did not require it. Troponin EKG series is requested, reviewed first troponin, normal. Reviewed EKG, on my interpretation with RBBB, does have a Q wave in 3 possibly from his old FL. Did not see signs of acute FL, pending official read. Blood pressure is noted on the soft side, earlier as low as 82/42, possibly contributing to his symptoms. For now we will hold his lisinopril, HCTZ, gabapentin due to risk of hypotension. Continue aspirin, statin, metoprolol. Reviewed vitals, CBC, CMP, A1c, TSH. Reviewed hospitalist consultation, psychiatry note. Pending assessment by CT of his thigh wound, consider resumption of Xarelto if no additional issues. Moderate MDM includes number and complexity of problems actively addressed during encounter, amount and/or complexity of data reviewed/ordered [ previous or external records, resulted lab(s)/test(s), ordered lab(s)/test(s) and independent test interpretation] and described risk of complication, morbidity o r mortality of management as documented
--- NOTE | 2024-02-27 01:51 | ECG_ITS ---
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 Measurements Intervals [place] Rate: 88 P: 55 MN: 178 QRS: 60 QRSD: 120 T: 86 QT: 386 QTc: 469 Interpretive Statements SINUS RHYTHM MODERATE INTRAVENTRICULAR CONDUCTION DELAY [110+ ms QRS DURATION] NONSPECIFIC T-WAVE ABNORMALITY Compared to ECG 02/26/2024 22:58:18 Intraventricular conduction delay now present T-wave abnormality now present Incomplete right bundle-branch block no longer present Myocardial infarct finding no longer present Electronically Signed On 02-27-2024 11:47:09 CDT by Ariel Ontiveros M.D. [email or web address]/[id number]
[2024-02-27 02:22] LABS: Troponin 5 2HR 6.26 ng/L (0-15)
[2024-02-27 02:23] LABS: Troponin 5 2HR Delta -0.74 ABS# (0-10)
--- NOTE | 2024-02-27 05:44 | ECG_ITS ---
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 Measurements Intervals [place] Rate: 76 P: 59 AL: 196 QRS: 60 QRSD: 126 T: 74 QT: 423 QTc: 476 Interpretive Statements SINUS RHYTHM MODERATE INTRAVENTRICULAR CONDUCTION DELAY [110+ ms QRS DURATION] NONSPECIFIC T-WAVE ABNORMALITY Compared to ECG 02/27/2024 01:51:43 No significant changes Electronically Signed On 02-27-2024 11:47:25 CDT by Ariel Ontiveros M.D. [id number]
[2024-02-27 06:00] VITALS: BP 120/79; PULSE 81; RESP 18; O2SAT 98
[2024-02-27 06:18] LABS: Basophils # 0.1 10^3/uL (0.0-0.1); Basophils % 0.6 %; Eosinophils # 0.1 10^3/uL (0.0-0.8); Eosinophils % 0.7 %; Hematocrit 42.2 % (37-53); Lymphocytes # 3.8 10^3/uL (0.8-4.8); Lymphocytes % 39.4 %; Mean Corpuscular HGB Conc 32.5 g/dL (30-55); Mean Corpuscular Hemoglobin 27.7 pg (27-33); Mean Corpuscular Volume 85.4 fl (82-101); Mean Platelet Volume 8.3 fL (7.4-10.4); Monocytes # 0.7 10^3/uL (0.2-0.9); Monocytes % 6.9 %; Neutrophils # 4.94 10^3/uL (1.8-7.7); Nucleated Red Blood Cells % 0 %; Platelet Count 360 10^3/cmm (157-399); Red Blood Count 4.94 10^6/uL (3.85-5.65); Red Cell Distribution Width 13.4 % (12.1-15.1); White Blood Count 9.52 10^3/uL (3.29-11.43)
--- NOTE | 2024-02-27 06:36 | PC.NURSE ---
wet to dry sterile dressing change done on left knee. Change done by DEPOSITION OPERATOR from Med-Surg, assisted by DEPOSITION OPERATOR/RN. Pt tolerated dressing change well.
[2024-02-27 06:37] LABS: Alanine Aminotransferase 33 U/L (0-41); Alkaline Phosphatase 102 U/L (40-130); Aspartate Amino Transferase 20 U/L (0-40); Blood Urea Nitrogen 12 mg/dL (6-20); Calcium 9.3 mg/dL (8.5-10.5); Carbon Dioxide 25 mmol/L (22-29); Chloride 98 mmol/L (98-107); Creatinine Clr Calc Pharmacy 154.7829; Globulin 3.4 g/dL (1.3-4.6); Glucose 193 mg/dL (65-115); Osmolality Calculated 285 mOsm/kg (285-295); Sodium 135 mmol/L (136-145); Total Bilirubin 0.2 mg/dL (0.15-1.2); Total Protein 7.4 g/dL (6.6-8.7); Troponin 5 6HR 9.04 ng/L (0-15); Troponin 5 6HR Delta 2.04 ng/L (0-12)
[2024-02-27 06:38] LABS: Chol HDL Ratio 3.94 mg/dL (1.0-5.00); Cholesterol 122 mg/dL (0-200); HDL Cholesterol 31 mg/dL (60-100); LDL Cholesterol Calculated 60 mg/dL (50-129); Magnesium 2.2 mg/dL (1.7-2.3); Triglycerides 156 mg/dL (0-150); VLDL Cholestrol Calculation 31 mg/dL (0-30)
--- NOTE | 2024-02-27 06:46 | PC.NURSE ---
Pt off unit for CT
[2024-02-27 06:55] LABS: Folate Level 10.6 ng/mL (4.5-32.2)
[2024-02-27] MEDS: aspirin 81 mg EC Tablet PO (08:45)
[2024-02-27] MEDS: metformin 500 mg Tablet PO (08:45)
[2024-02-27] MEDS: ALPRAZolam 0.5 mg Tablet 1 MG PO ×3 (08:45→20:57)
[2024-02-27] MEDS: clopidogrel 75 mg Tablet PO (08:46)
[2024-02-27] MEDS: metoprolol succinate ER (24 HR) 25 mg Tablet PO (08:46)
[2024-02-27] MEDS: nicotine 21 mg Patch 1 PATCH TRANSDERMA (08:52)
[2024-02-27] MEDS: rivaroxaban 10 mg Tablet 2.5 MG PO ×2 (11:29→17:49)
[2024-02-27] MEDS: potassium chloride ER 20 mEq Tablet 80 MEQ PO (11:29)
--- NOTE | 2024-02-27 12:35 | PM.PN ---
Subjective Subjective: Overnight apparently patient had an episode of chest pain which got relieved by hydrocodone, troponin cycle was done which was reported negative. Blood pressure stable but on the softer side. No new complaints. Vitals/I&O/Wt Last Vital Signs Temp 98.1 F 02/26/24 20:04 Pulse 81 02/27/24 06:00 Resp 18 02/27/24 06:00 BP 120/79 02/27/24 06:00 Pulse Ox 98 02/27/24 06:00 O2 Del Method Room Air 02/27/24 00:04 Weight last 48 hrs Weight 106.141 kg Weight 104.326 kg Physical Exam Narrative: General: No acute distress, AO x3 HEENT: PERRLA, pupils bilaterally equal and reactive Chest: Normal vesicular breath sounds, no added sounds, equal good air entry bilaterally CVS: S1-S2 regular, no murmurs, no tachycardia, no gallops, no rubs Abdomen: Soft, nontender, no organomegaly, bowel sounds present Neuro: No focal deficits, no facial deformity, AO x3, power 5/5 in all limbs Skin: OTHER: Data 02/27/24 06:08 02/27/24 06:08 Micro: Microbiology 02/26/24 17:58 Blood Culture - Preliminary Blood SPECIMEN COLLECTED 02/26/24 18:01 Blood Culture - Preliminary Blood SPECIMEN COLLECTED A&P Assessment and plan (1) Encounter for wound care: As per patient he underwent vascular graft exploration for graft infection from Staphylococcus 4 weeks ago at [facility]. Was on IV vancomycin till 02/21. Will request documents from outside hospital. Appreciate ESR, CRP. Blood cultures so far negative. CT of lower limb without contrast negative for any collection. Wound care with wet-to-dry gauze under sterile precautions twice daily. Patient will need to follow-up as an outpatient to wound care clinic as well. Will consult surgery for possible skin graft during hospitalization. (2) Arteriovenous graft infection: Documents awaited from outside hospital. Reviewed some lab work sent in. No antibiotics for now. For now infection less likely (3) CAD (coronary artery disease): Denies any active chest pain. Appreciate A1c, lipid panel. Continue with home dose of Plavix, statin, Xarelto Troponin cycled negative overnight. Qualifiers: Associated angina: with unstable angina Coronary Disease-Associated Artery/Lesion type: [place] artery [place] vs. transplanted heart: [place] heart Qualified Code(s): I25.110 - Atherosclerotic heart disease of [place] coronary artery with unstable angina pectoris (4) Peripheral vascular disease: Continue with Xarelto at 2.5 mg twice daily dose which seems to be in setting of prophylaxis for PAD (5) Suicidal ideation: As per primary team Plan Hypertension: Goal blood pressure less than 140/90 mmHg. Blood pressure slightly soft overnight. Continue with home dose of metoprolol. Holding off on lisinopril and hydrochlorothiazide for now. Most likely patient can be discharged only on lisinopril and hydrochlorothiazide can be discontinued. Last echocardiogram from July 2023 showed an EF of 45 to 50% with mild to moderate lateral wall hypokinesia, stage I diastolic dysfunction. Given significant wound with recent history of vascular graft getting infected with possibly patient needing skin graft patient is at high risk of infection as an outpatient and should be in a monitored setting. Discussed in detail with Dr. Andrews. Patient would benefit from possible placement to SNF for all the above. Care discussed in detail with patient's nurse at bedside. All the questions were answered. Please call back with any questions. Cardiac diet Attestations Medical Necessity Statement*: Requires further hospitalization as per primary team for suicidal ideation, significant lower limb wound post graft exploration as patient requires further wound care and possible skin graft Diagnoses Encounter for wound care Arteriovenous graft infection T82.7XXA Coronary artery disease involving [place] coronary artery of [place] heart with unstable angina pectoris I25.110 Associated angina: with unstable angina Coronary Disease-Associated Artery/Lesion type: [place] artery [place] vs. transplanted heart: [place] heart Peripheral vascular disease I73.9 Suicidal ideation R45.851
--- NOTE | 2024-02-27 13:50 | PC.NURSE ---
1302spoke with electrical tests supervisor/hospital nursing assistant Liz Turner RN for 2nd time today she stated as soon she can she will send information via fax.
[2024-02-27 14:00] VITALS: BP 136/82; PULSE 81; RESP 17; TEMP 36.6; O2SAT 98
[2024-02-27] MEDS: gabapentin 400 mg Capsule PO ×2 (14:25→20:57)
[2024-02-27 15:01] LABS: Glucose Point of Care 169 mg/dL (70-110)
--- NOTE | 2024-02-27 17:14 | P.NPUPN_ITS ---
Subjective NPU 2 Subjective: 44-year-old male admitted with suicidal ideation with considerable problems with infected lower left leg with concerns over her recent staph infection. He had reported that he had an unstable situation in his home and reported that he was at great risk of having a recurring surgical infection. He had been compliant on the milieu. He had made numerous demands for medication changes and continue to report anxiety but did not endorse any panic symptoms. He had reported considerable pain issues that had been described as chronic but had been worsened since his surgery. Mental Status Exam 2 MSE Comments: This is an obese white male in hospital scrubs with adequate grooming and fair eye contact. There is no evidence of any abnormal involuntary motor movements tics or tremors appreciated. He was cooperative with exam in moderate distress. Speech was normal in rate, rhythm and prosody. Mood was described as depressed. His affect was restricted in range and mood congruent. Thought process was linear and organized. Thought content: Patient endorsed passive suicidal ideation with no plan and denies homicidal ideation, there were no delusions reported or noted, He denied any auditory or visual hallucinations. Attention and concentration appeared intact and memory appeared mostly reliable but none were formally tested. He is alert and oriented x3. Insight, judgment and impulse control are limited versus impaired. He had reported significant pain in his lower left leg with wound bandaged at this time. Vitals/I&O/Wt Last Vital Signs Temp 97.8 F 02/27/24 14:00 Pulse 81 02/27/24 14:00 Resp 17 02/27/24 14:00 BP 136/82 02/27/24 14:00 Pulse Ox 98 02/27/24 14:00 O2 Del Method Room Air 02/27/24 00:04 Weight last 48 hrs Weight 106.141 kg Weight 104.326 kg Data NPU 02/27/24 06:08 02/27/24 06:08 Micro: Microbiology 02/26/24 17:58 Blood Culture - Preliminary Blood SPECIMEN COLLECTED 02/26/24 18:01 Blood Culture - Preliminary Blood SPECIMEN COLLECTED Microbiology 02/26/24 17:58 Blood Blood Culture - Preliminary SPECIMEN COLLECTED 02/26/24 18:01 Blood Blood Culture - Preliminary SPECIMEN COLLECTED A&P Assessment and plan (1) Major depressive disorder: (2) Panic disorder: (3) Alcohol dependence: Qualifiers: Substance use status: in remission Qualified Code(s): F10.21 - Alcohol dependence, in remission (4) Generalized anxiety disorder with panic attacks: Plan Patient is a 44-year-old white male admitted with suicidal ideation, worsening depression currently sober for last 5 months denying homelessness. 1. Continue cymbalta and xanax at 1mg tid. 2.? Encourage individual, group and milieu therapy 3.? Continue q-15 minute check for safety 4.? Recommend sober living treatment at the highest level of care to which the patient is willing to commit. 5. Consider surgical intervention, awaiting evaluation from surgical team tomjose angel. Involuntary Hold Information 2 96 Hour Hold: 96 Hour Involuntary Admission: No Attestations NPU 2 Medical Necessity Statement*: Inpatient hospitalization is medically necessary and clinically appropriate intervention at this time. We will monitor medications and make changes as indicated. Patient will be in the hospital for over 2 midnights. His likely length of stay is 3 to 5 days. Coding Level of Care Code Acute Code for [facility] Diagnoses Major depressive disorder F32.9 Panic disorder F41.0 Alcohol dependence in remission F10.21 Substance use status: in remission Generalized anxiety disorder with panic attacks F41.1; F41.0
[2024-02-27] MEDS: duloxetine 30 mg Capsule PO (17:49)
[2024-02-27] MEDS: ferrous gluconate 324 mg Tablet PO (17:49)
--- NOTE | 2024-02-27 18:08 | PC.NURSE ---
CALLED [facility] FOR PT CHART TO BE FAXED WAITING NUT CULLER BACK FROM DIRECTOR MEDICAL SAFETY TANNER BECKMAN RN. [phone]
[2024-02-27] MEDS: acetaminophen 325 mg Tablet 650 MG PO (18:34)
[2024-02-27 19:41] VITALS: BP 116/75; PULSE 90; RESP 18; TEMP 36.7; O2SAT 98
[2024-02-27] MEDS: hyDROXYzine 25 mg Capsule 50 MG PO (19:46)
[2024-02-27] MEDS: atorvastatin 40 mg Tablet 80 MG PO (20:57)
[2024-02-27] MEDS: quetiapine 300 mg Tablet PO (20:57)
[2024-02-28 06:00] VITALS: BP 137/93; PULSE 71; RESP 17; O2SAT 98
[2024-02-28 08:22] LABS: Alanine Aminotransferase 34 U/L (0-41); Albumin Level 2.8 g/dL (3.5-5.2); Alkaline Phosphatase 96 U/L (40-130); Blood Urea Nitrogen 13 mg/dL (6-20); Carbon Dioxide 15 mmol/L (22-29); Chloride 106 mmol/L (98-107); Globulin 3.8 g/dL (1.3-4.6); Glomerular Filtration Rate 179.8 mL/min (90-130); Glucose 191 mg/dL (65-115); Osmolality Calculated 277 mOsm/kg (285-295); Sodium 131 mmol/L (136-145); Total Bilirubin 0.2 mg/dL (0.15-1.2); Total Protein 6.6 g/dL (6.6-8.7)
[2024-02-28] MEDS: ALPRAZolam 0.5 mg Tablet 1 MG PO ×4 (08:22→21:04)
[2024-02-28] MEDS: HYDROcodone-acetaminophen 5-325 mg Tablet 1 TAB PO ×2 (08:22→16:20)
[2024-02-28] MEDS: duloxetine 30 mg Capsule PO (08:22)
[2024-02-28 08:23] LABS: Creatinine Clr Calc Pharmacy 216.6961
[2024-02-28] MEDS: metoprolol succinate ER (24 HR) 25 mg Tablet PO (08:23)
[2024-02-28] MEDS: sitagliptin 100 mg Tablet PO (08:23)
[2024-02-28] MEDS: gabapentin 400 mg Capsule PO ×3 (08:23→21:04)
[2024-02-28] MEDS: ferrous gluconate 324 mg Tablet PO ×2 (08:23→17:03)
[2024-02-28 08:24] LABS: Anion Gap 14.4 (5-19); Potassium 4.4 mmol/L (3.5-5.1)
[2024-02-28 08:25] LABS: Aspartate Amino Transferase 28 U/L (0-40)
[2024-02-28] MEDS: nicotine 21 mg Patch 1 PATCH TRANSDERMA (09:32)
--- NOTE | 2024-02-28 10:34 | PC.NURSE ---
sterile wet to dry dressing change preformed on pt left lower extremity, cleaned with sterile dressing, 4x4 sterile guaze covered with ABD pad placed over guaze, secured with tape. pt handled procedure well.
[2024-02-28] MEDS: acetaminophen 325 mg Tablet 650 MG PO ×2 (11:20→21:04)
[2024-02-28] MEDS: hyDROXYzine 25 mg Capsule 50 MG PO (11:20)
--- NOTE | 2024-02-28 12:26 | PC.NURSE ---
telephone orders given to hold plavix and xeralto by dr wilson.
[2024-02-28 13:46] VITALS: BP 121/70; PULSE 92; RESP 17; TEMP 36.4; O2SAT 98
--- NOTE | 2024-02-28 14:49 | PM.PN ---
Subjective Subjective: pt seen today pain uncontrolled is not suicidal Vitals/I&O/Wt Last Vital Signs Temp 97.5 F L 02/28/24 13:46 Pulse 92 02/28/24 13:46 Resp 17 02/28/24 13:46 BP 121/70 02/28/24 13:46 Pulse Ox 98 02/28/24 13:46 O2 Del Method Room Air 02/27/24 00:04 Weight last 48 hrs Weight 106.141 kg Physical Exam Narrative: General: No acute distress, AO x3 HEENT: PERRLA, pupils bilaterally equal and reactive Chest: Normal vesicular breath sounds, no added sounds, equal good air entry bilaterally CVS: S1-S2 regular, no murmurs, no tachycardia, no gallops, no rubs Abdomen: Soft, nontender, no organomegaly, bowel sounds present wound not assessed today. Skin: OTHER: Data 02/27/24 06:08 02/28/24 07:51 Micro: Microbiology 02/26/24 17:58 Blood Culture - Preliminary Blood NEGATIVE TO DATE 02/26/24 18:01 Blood Culture - Preliminary Blood NEGATIVE TO DATE A&P Assessment and plan (1) Encounter for wound care: As per patient he underwent vascular graft exploration for graft infection from Staphylococcus 4 weeks ago at [facility]. Was on IV vancomycin till 02/21. Will request documents from outside hospital. Appreciate ESR, CRP. Blood cultures so far negative. CT of lower limb without contrast negative for any collection. Wound care with wet-to-dry gauze under sterile precautions twice daily. Patient will need to follow-up as an outpatient to wound care clinic as well. Gen surgery consulted hold plavix and xarelto plan for skin graft in am npo at midnight today transfer to [facility] (2) Arteriovenous graft infection: Documents awaited from outside hospital. Reviewed some lab work sent in. No antibiotics for now. For now infection less likely (3) CAD (coronary artery disease): Denies any active chest pain. Appreciate A1c, lipid panel. Continue with home dose of Plavix, statin, Xarelto Troponin cycled negative overnight. Qualifiers: Associated angina: with unstable angina Coronary Disease-Associated Artery/Lesion type: [place] artery [place] vs. transplanted heart: [place] heart Qualified Code(s): I25.110 - Atherosclerotic heart disease of [place] coronary artery with unstable angina pectoris (4) Peripheral vascular disease: Continue with Xarelto at 2.5 mg twice daily dose which seems to be in setting of prophylaxis for PAD (5) Suicidal ideation: As per primary team Plan Hypertension: Goal blood pressure less than 140/90 mmHg. Blood pressure slightly soft overnight. Continue with home dose of metoprolol. Holding off on lisinopril and hydrochlorothiazide for now. Most likely patient can be discharged only on lisinopril and hydrochlorothiazide can be discontinued. Last echocardiogram from July 2023 showed an EF of 45 to 50% with mild to moderate lateral wall hypokinesia, stage I diastolic dysfunction. Given significant wound with recent history of vascular graft getting infected with possibly patient needing skin graft patient is at high risk of infection as an outpatient and should be in a monitored setting. Discussed in detail with Dr. Andrews. Patient would benefit from possible placement to SNF for all the above. Cardiac diet pt will need SNF placement at conclusion of this hospitalization pt is at high risk of wound infection giving unsanitary conditions at home. Attestations Medical Necessity Statement*: transfer to [facility], skin grafting in am Diagnoses Encounter for wound care Arteriovenous graft infection T82.7XXA Coronary artery disease involving [place] coronary artery of [place] heart with unstable angina pectoris I25.110 Associated angina: with unstable angina Coronary Disease-Associated Artery/Lesion type: [place] artery [place] vs. transplanted heart: [place] heart Peripheral vascular disease I73.9 Suicidal ideation R45.906
--- NOTE | 2024-02-28 16:37 | PM.CONSULT ---
Providers/Reason For Consult Consulting Physician/Specialty*: Dr. Anastacio Moss, DO/General surgery Reason for Consult*: Open wound left lower extremity Attending Physician: Keny Andrews MD Primary Care Provider: Nilesh Hutchinson MD History of Present Illness History of Present Illness Rudy Crawford is a 44 year old male with past medical history of smoking, peripheral artery disease, hypertension, homeless, recurrent admissions for suicidal ideation, recent left lower limb thrombectomy at [facility] for ischemic limb which was complicated by what sounds like Staphylococcus graft infection for which he underwent another procedure 4 weeks ago as per the patient and was on IV antibiotics which was vancomycin through a PICC line. He is currently in the Neuropsych Unit for suicidal ideation. General surgery was consulted for possible skin grafting to the left lower extremity wound. Patient reports minimal pain to his left leg. Palpation makes pain worse. Nothing makes pain better. The pain does not radiate. Review of Systems General: Reports: 10 or more systems reviewed and unremarkable except in HPI and below Medications/Allergies Home Medications Medication Instructions Recorded Confirmed Last Taken Type lisinopril 20 1 tab PO QAM 11/10/23 02/26/24 02/24/24 History mg-hydrochlorothiazide 25 mg tablet quetiapine 300 mg tablet (Seroquel) 300 mg PO BEDTIME 12/01/23 02/26/24 Unknown History aspirin 81 mg tablet,delayed 81 mg PO DAILY #90 tabs 12/17/23 02/26/24 02/24/24 Rx release atorvastatin 80 mg tablet 80 mg PO BEDTIME 30 days #30 tabs 12/17/23 02/26/24 Unknown Rx clopidogrel 75 mg tablet (Plavix) 75 mg PO DAILY #30 tabs 12/17/23 02/26/24 Unknown Rx duloxetine 30 mg capsule,delayed 30 mg PO DAILY #90 caps 01/27/24 02/24/24 Unknown Rx release hydroxyzine HCl 25 mg tablet 25 mg PO TID PRN itching #90 tabs 01/27/24 02/24/24 02/24/24 Rx metoprolol succinate 25 mg 25 mg PO DAILY #90 tabs 01/27/24 02/26/24 Unknown Rx tablet,extended release 24 hr polyethylene glycol 3350 17 gram 17 g PO DAILY #100 ea 01/27/24 02/24/24 Unknown Rx oral powder packet (Miralax) sennosides 8.6 mg tablet (senna) 8.6 mg PO DAILY #90 tabs 01/27/24 02/24/24 Unknown Rx betamethasone valerate 0.1 % 1 applic topical BID 02/24/24 02/24/24 Unknown History topical cream clotrimazole 1 % topical cream 1 applic topical BID 02/24/24 02/24/24 Unknown History gabapentin 300 mg capsule 600 mg PO TID 02/24/24 02/26/24 Unknown History metformin 500 mg tablet 500 mg PO DAILY 02/24/24 02/26/24 Unknown History naloxone 0.4 mg/mL injection 0.4 mg SUBCUT Q3M PRN OPIATE 02/24/24 02/24/24 Unknown History solution OVERDOSE oxycodone 5 mg tablet 5 mg PO Q4H PRN Pain 02/24/24 02/24/24 02/24/24 History rivaroxaban 2.5 mg tablet (Xarelto) 2.5 mg PO BID 02/24/24 02/24/24 Unknown History Allergies Allergy/AdvReac Type Severity Reaction Status Date / Time codeine Allergy ALGY-Hives Verified 11/24/23 09:38 ketorolac [From Toradol] Allergy ALGY-Hives Verified 11/24/23 09:38 trazodone Allergy ALGY-Difficulty Verified 11/24/23 09:38 Swallowing Current Medications Generic Name Dose Route Start Last Admin Trade Name Freq PRN Reason Stop Dose Admin Acetaminophen 650 mg 02/25/24 22:01 02/28/24 11:20 Acetaminophen 325 Mg Tablet PO 650 mg Q4H PRN Administration MILD PAIN Hydrocodone Bitart/Acetaminophen 1 tab 02/26/24 23:27 02/28/24 16:20 Hydrocodone-Acetaminophen 5-325 Mg Tablet PO 1 tab Q8H PRN Administration MODERATE PAIN Alprazolam 1 mg 02/28/24 13:00 02/28/24 14:05 Alprazolam 0.5 Mg Tablet PO 1 mg QID BATOOL Administration Atorvastatin Calcium 80 mg 02/26/24 21:00 02/27/24 20:57 Atorvastatin 40 Mg Tablet PO 80 mg BEDTIME BATOOL Administration Clopidogrel Bisulfate 75 mg 02/26/24 09:00 02/28/24 12:26 Clopidogrel 75 Mg Tablet PO Not Given DAILY BATOOL Diphenhydramine HCl 50 mg 02/25/24 22:01 02/26/24 01:15 Diphenhydramine 50 Mg/Ml Sdv 1ml IM 50 mg ONCE PRN Administration Severe Extrapyramidal Symptoms Duloxetine HCl 30 mg 02/28/24 09:00 02/28/24 08:22 Duloxetine 30 Mg Capsule PO 30 mg DAILY BATOOL Administration Ferrous Gluconate 324 mg 02/27/24 18:00 02/28/24 08:23 Ferrous Gluconate 324 Mg Tablet PO 324 mg BIDWM BATOOL Administration Gabapentin 400 mg 02/27/24 15:00 02/28/24 14:55 Gabapentin 400 Mg Capsule PO 400 mg TID BATOOL Administration Haloperidol Lactate 5 mg 02/25/24 22:01 02/26/24 01:15 Haloperidol Inj 5 Mg/Ml Inj 1 Ml IM 5 mg Q4H PRN Administration Severe Aggression Hydroxyzine Pamoate 50 mg 02/25/24 22:01 02/28/24 11:20 Hydroxyzine 25 Mg Capsule PO 50 mg Q6H PRN Administration ANXIETY Metoprolol Succinate 25 mg 02/26/24 09:00 02/28/24 08:23 Metoprolol Succinate Er (24 Hr) 25 Mg Tablet PO 25 mg DAILY BATOOL Administration Nicotine 1 patch 02/25/24 22:01 02/28/24 09:32 Nicotine 21 Mg Patch TRANSDERMA 1 patch DAILY PRN Administration NICOTINE WITHDRAWAL Nicotine Polacrilex 4 mg 02/26/24 15:26 02/26/24 15:39 Nicotine 4 Mg Lozenge MUCOUS MEM 4 mg Q2H PRN Administration NICOTINE CRAVINGS Olanzapine 5 mg 02/25/24 22:01 02/25/24 22:59 Olanzapine 5 Mg Odt PO 5 mg Q4H PRN Administration Agitation/Psychosis Quetiapine Fumarate 300 mg 02/26/24 21:00 02/27/24 20:57 Quetiapine 300 Mg Tablet PO 300 mg BEDTIME BATOOL Administration Rivaroxaban 2.5 mg 02/27/24 10:45 02/28/24 12:26 Rivaroxaban 10 Mg Tablet PO Not Given BID BATOOL Sitagliptin Phosphate 100 mg 02/28/24 09:00 02/28/24 08:23 Sitagliptin 100 Mg Tablet PO 100 mg DAILY BATOOL Administration PFSH Acute PFSH: Medical History Arteriovenous graft infection Alcohol dependence Psychiatric care 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 Prediabetes Erectile dysfunction Chronic pain in left shoulder Had pain present when seen 12/2021 on his first visit and thought he might have a rotator cuff tear then Generalized anxiety disorder with panic attacks Benzodiazepine abuse Dental caries associated with enamel hypomineralization Cigarette smoker Claudication in peripheral vascular disease Since 2017 with walking 100 yards or less Chronic low back pain Torn rotator cuff Hypertension Depression Surgical History History of coronary angioplasty with insertion of stent Family History Other CAD (coronary artery disease) Social History Smoking and tobacco/nicotine status: current every day tobacco/nicotine user cigarettes Packs smoked per day: 2 Alcohol intake: current Alcohol intake frequency: few times a week Substance/Drug Use: never Marital status: Single Number of children: 0 Current occupational status: employed Vitals/I&O/Wt Last Vital Signs Temp 97.5 F L 02/28/24 13:46 Pulse 92 02/28/24 13:46 Resp 17 02/28/24 13:46 BP 121/70 02/28/24 13:46 Pulse Ox 98 02/28/24 13:46 O2 Del Method Room Air 02/27/24 00:04 Weight last 48 hrs Weight 234 lb Physical Exam Narrative: General : Patient is well developed , no acute distress, oriented x3 Head : Normal cephalic, a-traumatic. Ears : Pinnae and external canal are normal. Hearing is normal. Eyes : PERRLA, Sclera and injection are normal. No conjunctival discharge. Nose : Mucous membranes are without erythema. Throat : buccal mucosa is normal, gums are without significant recession or hypertrophy. Lungs : Equal chest rise bilaterally, no use of accessory muscles, trachea is midline. Cor : Rate and rhythm are normal. Abdomen : Soft, ND, NT, no g/r/m Extremities : There is an open wound with a healthy bed of granulation tissue to the left lower extremity from the medial thigh down to the medial leg crossing the medial popliteal fossa. There is a small area of tunneling also in the middle. No evidence of erythema or exudate. Back : non-tender to palpation, no CVA tenderness. Neuro : CN II - XII intact, Upper and lower extremities have equal and full strength Data 02/27/24 06:08 02/29/24 09:27 Micro: Microbiology 02/26/24 17:58 Blood Culture - Preliminary Blood NEGATIVE TO DATE 02/26/24 18:01 Blood Culture - Preliminary Blood NEGATIVE TO DATE A&P Assessment and plan (1) Dehiscence of wound: Plan Split thickness skin graft to left lower extremity tomorrow Risks and benefits of procedure, including but not limited to, scar, numbness, pain, graft failure, need for further surgery, damage to surrounding structures, poor wound healing, were explained to the patient. He is understanding of the risks and wishes to proceed. Graft be taken from his left thigh Coding Level of Care Code 60032 Diagnoses Dehiscence of wound T81.30XA
--- NOTE | 2024-02-28 16:48 | P.NPUPN_ITS ---
Subjective NPU 2 Subjective: 44-year-old male admitted with suicidal ideation with considerable problems with infected lower left leg with concerns over her recent staph infection. Patient had reported depressed mood and considerable anxiety and pain issues. He had been agreeable to consideration for surgery including a skin graft. Patient had described having significant problems with maintaining appropriate care in his home environment as he had lived in a garage and this may have led to him having more problems with recurrent infections in his left leg. He had endorsed a previous history of problems with opiate dependence stating that he had been on methadone before in the past. He had reported several months of sobriety off of methamphetamine and alcohol. Mental Status Exam 2 MSE Comments: This is an obese white male in hospital scrubs with adequate grooming and fair eye contact. There is no evidence of any abnormal involuntary motor movements tics or tremors appreciated. He was cooperative with exam in moderate distress. Speech was normal in rate, rhythm and prosody. Mood was described as allright. His affect was restricted in range and mood congruent. Thought process was linear and organized. Thought content: Patient endorsed passive suicidal ideation with no plan and denies homicidal ideation, there were no delusions reported or noted, He denied any auditory or visual hallucinations. Attention and concentration appeared intact and memory appeared mostly reliable but none were formally tested. He is alert and oriented x3. Insight, judgment and impulse control are limited versus impaired. He had reported significant pain in his lower left leg with wound bandaged at this time. Vitals/I&O/Wt Last Vital Signs Temp 97.5 F L 02/28/24 13:46 Pulse 92 02/28/24 13:46 Resp 17 02/28/24 13:46 BP 121/70 02/28/24 13:46 Pulse Ox 98 02/28/24 13:46 O2 Del Method Room Air 02/27/24 00:04 Weight last 48 hrs Weight 106.141 kg Data NPU 02/27/24 06:08 02/28/24 07:51 Micro: Microbiology 02/26/24 17:58 Blood Culture - Preliminary Blood NEGATIVE TO DATE 02/26/24 18:01 Blood Culture - Preliminary Blood NEGATIVE TO DATE Microbiology 02/26/24 17:58 Blood Blood Culture - Preliminary NEGATIVE TO DATE 02/26/24 18:01 Blood Blood Culture - Preliminary NEGATIVE TO DATE A&P Assessment and plan (1) Major depressive disorder: (2) Panic disorder: (3) Alcohol dependence: Qualifiers: Substance use status: in remission Qualified Code(s): F10.21 - Alcohol dependence, in remission (4) Generalized anxiety disorder with panic attacks: Plan Patient is a 44-year-old white male admitted with suicidal ideation, worsening depression currently sober for last 5 months denying homelessness. 1. Continue cymbalta and resume xanax at 1mg qid as previously prescribed. Patient to benefit correction methadone use to manage pain as well. 2.? Encourage individual, group and milieu therapy 3.? Continue q-15 minute check for safety 4.? Recommend sober living treatment at the highest level of care to which the patient is willing to commit. 5. Surgical intervention tommorow with plan to transfer to surgery when bed available tonight or tommorow morning. Involuntary Hold Information 2 96 Hour Hold: 96 Hour Involuntary Admission: No Attestations NPU 2 Medical Necessity Statement*: Inpatient hospitalization is medically necessary and clinically appropriate intervention at this time. We will monitor medications and make changes as indicated. His likely length of stay is 1-2 days. NPO tonight. Coding Level of Care Code Acute Code for [facility] Diagnoses Major depressive disorder F32.9 Panic disorder F41.0 Alcohol dependence in remission F10.21 Substance use status: in remission Generalized anxiety disorder with panic attacks F41.1; F41.0
[2024-02-28] MEDS: atorvastatin 40 mg Tablet 80 MG PO (21:04)
[2024-02-28] MEDS: quetiapine 300 mg Tablet PO (21:04)
[2024-02-28 21:33] VITALS: BP 108/67; PULSE 85; RESP 17; TEMP 36.9; O2SAT 95
[2024-02-29] VITALS (8 sets, daily range): BP systolic 130–150; BP diastolic 86–98; PULSE 66–80; RESP 18–20; TEMP 36.3–36.7; O2SAT 98–100
[2024-02-29] MEDS: HYDROcodone-acetaminophen 5-325 mg Tablet 1 TAB PO ×2 (03:58→12:03)
[2024-02-29] MEDS: ferrous gluconate 324 mg Tablet PO ×2 (09:08→16:55)
[2024-02-29] MEDS: gabapentin 400 mg Capsule PO ×3 (09:08→20:15)
[2024-02-29] MEDS: metoprolol succinate ER (24 HR) 25 mg Tablet PO (09:08)
[2024-02-29] MEDS: ALPRAZolam 0.5 mg Tablet 1 MG PO ×4 (09:08→20:15)
[2024-02-29] MEDS: duloxetine 30 mg Capsule PO (09:08)
--- NOTE | 2024-02-29 09:43 | P.NPUPN_ITS ---
Subjective NPU 2 Subjective: 44-year-old male admitted with suicidal ideation with considerable problems with infected lower left leg with concerns over her recent staph infection. Patient had continued to report anxiety. He had also reported depression but stated that his mood was better as he reported no suicidal thoughts today. He was motivated to receive his surgical treatment and reported some problems with managing chronic pain. No side effects reported from his psychiatric medication. Mental Status Exam 2 MSE Comments: This is an obese white male in hospital scrubs with adequate grooming and fair eye contact. There is no evidence of any abnormal involuntary motor movements tics or tremors appreciated. He was cooperative with exam in mild distress. Speech was normal in rate, rhythm and prosody. Mood was described as better. His affect was brighter today. Thought process was linear and organized. Thought content: Patient denied suicidal ideation with no plan and denies homicidal ideation, there were no delusions reported or noted, He denied any auditory or visual hallucinations. Attention and concentration appeared intact and memory appeared mostly reliable but none were formally tested. He is alert and oriented x3. Insight was limited. Judgment appeared adequate and impulse control was at baseline. Vitals/I&O/Wt Last Vital Signs Temp 98.1 F 02/29/24 16:01 Pulse 76 02/29/24 16:01 Resp 18 02/29/24 16:55 BP 130/88 02/29/24 16:01 Pulse Ox 99 02/29/24 16:55 O2 Del Method Room Air 02/29/24 16:01 Data NPU 02/27/24 06:08 02/29/24 09:27 A&P Assessment and plan (1) Dehiscence of wound: (2) Major depressive disorder: (3) Panic disorder: (4) Alcohol dependence: Qualifiers: Substance use status: in remission Qualified Code(s): F10.21 - Alcohol dependence, in remission (5) Generalized anxiety disorder with panic attacks: Plan 1. Transfer to med/surgical team=Left lower leg procedure today. Patient does not require readmission to psychiatric unit, will follow while here with plan to facilitate transfer to longterm facility for further treatment after surgery. 2. Referrals for psychiatric care on outpatient basis. Involuntary Hold Information 2 96 Hour Hold: 96 Hour Involuntary Admission: No Attestations NPU 2 Medical Necessity Statement*: Patient no longer needing psychiatric inpatient stay, will follow on consults until time of discharge. Coding Level of Care Code Acute Code for [facility] Diagnoses Dehiscence of wound T81.30XA Major depressive disorder F32.9 Panic disorder F41.0 Alcohol dependence in remission F10.21 Substance use status: in remission Generalized anxiety disorder with panic attacks F41.1; F41.0
--- NOTE | 2024-02-29 09:45 | PC.NURSE ---
DRESSING REMOVED AND PACKING REMOVED. WOUND CLEANSED WITH STERILE WATER, REPACKED WITH WET TO DRY DRESSING. COVERED WITH ABD. PT TOLERATED PROCEDURE WELL. PT WAS PREMEDICATED EARLIER IN MORNING. PT STATED DURING DRESSING CHANGE THAT PROCEDURE DID NOT HURT THAT HE JUST FELT TUGGING AND PRESSURE.
[2024-02-29 09:55] LABS: Alanine Aminotransferase 36 U/L (0-41); Albumin Level 4.1 g/dL (3.5-5.2); Alkaline Phosphatase 111 U/L (40-130); Anion Gap 12.3 (5-19); Aspartate Amino Transferase 19 U/L (0-40); Blood Urea Nitrogen 13 mg/dL (6-20); Carbon Dioxide 24 mmol/L (22-29); Chloride 105 mmol/L (98-107); Globulin 3.6 g/dL (1.3-4.6); Glomerular Filtration Rate 145.7 mL/min (90-130); Glucose 186 mg/dL (65-115); Osmolality Calculated 289 mOsm/kg (285-295); Potassium 4.3 mmol/L (3.5-5.1); Sodium 137 mmol/L (136-145); Total Bilirubin 0.2 mg/dL (0.15-1.2); Total Protein 7.7 g/dL (6.6-8.7)
--- NOTE | 2024-02-29 12:20 | P.PN_ITS ---
Vitals/I&O/Wt Last Vital Signs Temp 97.8 F 02/29/24 06:00 Pulse 66 02/29/24 06:00 Resp 18 02/29/24 06:00 BP 132/86 02/29/24 06:00 Pulse Ox 98 02/29/24 06:00 O2 Del Method Room Air 02/29/24 06:00 Data 02/27/24 06:08 02/29/24 09:27 A&P Assessment and plan (1) Dehiscence of wound: Plan Split thickness skin graft to left lower extremity Risks and benefits of procedure, including but not limited to, scar, numbness, pain, graft failure, need for further surgery, damage to surrounding structures, poor wound healing, were explained to the patient. He is understanding of the risks and wishes to proceed. Graft be taken from his left thigh Attestations 2 Medical Necessity Statement*: Per Primary Coding Level of Care Code Acute Code for [facility] Diagnoses Dehiscence of wound T81.30XA
--- NOTE | 2024-02-29 13:06 | PC.NURSE ---
nurse to nurse report given b y this porcelain turner to Rn Eloy. pt being transported to 151 bed 2 via wheelchair.
--- NOTE | 2024-02-29 13:19 | PM.MISC ---
Miscellaneous Note Note: chart followed peripherally, pt not seen in person was supposed to go for procedure today however wont be able to since there was no bed available on [facility] floor plan for OR in AM patient will be transferred to [facility] today npo at midnight restart diet today
[2024-02-29] MEDS: oxyCODONE 10 mg ER (12 HR) Tablet PO ×2 (13:27→16:55)
--- NOTE | 2024-02-29 13:33 | PC.NURSE ---
This nurse assumed care of pt at 1515.
[2024-02-29] MEDS: atorvastatin 40 mg Tablet 80 MG PO (20:15)
[2024-02-29] MEDS: oxyCODONE 5 mg IR Tab/Cap 10 MG PO (20:19)
[2024-02-29] MEDS: HYDROmorphone 1 mg/mL INJ 1 mL 0.5 MG IVP (23:45)
[2024-03-01] VITALS (25 sets, daily range): BP systolic 113–145; BP diastolic 74–100; PULSE 63–86; RESP 14–23; TEMP 36.3–36.7; O2SAT 92–100
[2024-03-01] MEDS: quetiapine 300 mg Tablet 150 MG PO (03:15)
[2024-03-01 05:21] LABS: Alanine Aminotransferase 28 U/L (0-41); Albumin Level 3.6 g/dL (3.5-5.2); Alkaline Phosphatase 100 U/L (40-130); Aspartate Amino Transferase 13 U/L (0-40); Blood Urea Nitrogen 12 mg/dL (6-20); Carbon Dioxide 22 mmol/L (22-29); Chloride 105 mmol/L (98-107); Globulin 2.9 g/dL (1.3-4.6); Glomerular Filtration Rate 145.7 mL/min (90-130); Glucose 212 mg/dL (65-115); Osmolality Calculated 292 mOsm/kg (285-295); Sodium 138 mmol/L (136-145); Total Bilirubin 0.2 mg/dL (0.15-1.2); Total Protein 6.5 g/dL (6.6-8.7)
[2024-03-01 05:24] LABS: Creatinine Clr Calc Pharmacy 178.7346
[2024-03-01] MEDS: gabapentin 400 mg Capsule PO ×2 (07:41→20:06)
[2024-03-01] MEDS: nicotine 21 mg Patch 1 PATCH TRANSDERMA (07:41)
[2024-03-01] MEDS: duloxetine 30 mg Capsule PO (07:41)
[2024-03-01] MEDS: ferrous gluconate 324 mg Tablet PO (07:41)
[2024-03-01] MEDS: ALPRAZolam 0.5 mg Tablet 1 MG PO ×3 (07:41→20:06)
[2024-03-01] MEDS: morphine 4 mg/mL SDV 1 mL 2 MG IVP (09:13)
[2024-03-01] MEDS: oxyCODONE-APAP 10-325 mg Tablet 1 TAB PO ×2 (11:10→20:06)
--- NOTE | 2024-03-01 11:26 | PM.PN ---
Subjective Subjective: Seen today. Going for skin grafting. Vitals/I&O/Wt Last Vital Signs Temp 97.9 F 03/01/24 07:10 Pulse 63 03/01/24 07:10 Resp 18 03/01/24 11:10 BP 113/74 03/01/24 07:10 Pulse Ox 98 03/01/24 11:10 O2 Del Method Room Air 03/01/24 07:10 02/29/24 03/01/24 03/01/24 22:59 06:59 14:59 Intake Total 2480 / 2480 Balance 2480 / 2480 Weight last 48 hrs Weight 104.043 kg Physical Exam Narrative: General: No acute distress, AO x3 HEENT: PERRLA, pupils bilaterally equal and reactive Chest: Normal vesicular breath sounds, no added sounds, equal good air entry bilaterally CVS: S1-S2 regular, no murmurs, no tachycardia, no gallops, no rubs Abdomen: Soft, nontender, wound covered with dressing Data 02/27/24 06:08 03/01/24 04:14 A&P Assessment and plan (1) Encounter for wound care: As per patient he underwent vascular graft exploration for graft infection from Staphylococcus 4 weeks ago at [facility]. Was on IV vancomycin till 02/21. Will request documents from outside hospital. Appreciate ESR, CRP. Blood cultures so far negative. CT of lower limb without contrast negative for any collection. Wound care with wet-to-dry gauze under sterile precautions twice daily. Patient will need to follow-up as an outpatient to wound care clinic as well. Gen surgery consulted hold plavix and xarelto plan for skin graft today npo at midnight today (2) Arteriovenous graft infection: Documents awaited from outside hospital. Reviewed some lab work sent in. No antibiotics for now. For now infection less likely (3) CAD (coronary artery disease): Denies any active chest pain. Appreciate A1c, lipid panel. Continue with home dose of Plavix, statin, Xarelto Troponin cycled negative overnight. Qualifiers: Associated angina: with unstable angina Coronary Disease-Associated Artery/Lesion type: [place] artery [place] vs. transplanted heart: [place] heart Qualified Code(s): I25.110 - Atherosclerotic heart disease of [place] coronary artery with unstable angina pectoris (4) Peripheral vascular disease: Continue with Xarelto at 2.5 mg twice daily dose which seems to be in setting of prophylaxis for PAD (5) Suicidal ideation: As per primary team Plan Hypertension: Goal blood pressure less than 140/90 mmHg. Blood pressure slightly soft overnight. Continue with home dose of metoprolol. Holding off on lisinopril and hydrochlorothiazide for now. Most likely patient can be discharged only on lisinopril and hydrochlorothiazide can be discontinued. Last echocardiogram from July 2023 showed an EF of 45 to 50% with mild to moderate lateral wall hypokinesia, stage I diastolic dysfunction. Given significant wound with recent history of vascular graft getting infected with possibly patient needing skin graft patient is at high risk of infection as an outpatient and should be in a monitored setting. Discussed in detail with Dr. Andrews. Patient would benefit from possible placement to SNF for all the above. Cardiac diet pt will need SNF placement at conclusion of this hospitalization pt is at high risk of wound infection giving unsanitary conditions at home. Attestations Medical Necessity Statement*: skin grafting today Diagnoses Encounter for wound care Arteriovenous graft infection T82.7XXA Coronary artery disease involving [place] coronary artery of [place] heart with unstable angina pectoris I25.110 Associated angina: with unstable angina Coronary Disease-Associated Artery/Lesion type: [place] artery [place] vs. transplanted heart: [place] heart Peripheral vascular disease I73.9 Suicidal ideation R45.851
[2024-03-01 11:33] LABS: Glucose Point of Care 152 mg/dL (70-110)
--- NOTE | 2024-03-01 13:29 | ANES.PREANE2 ---
Pre-Anesthetic Assessment Height/Weight: Height 1.7 m Weight 104.043 kg Temp Pulse Resp BP Pulse Ox O2 Del Method 97.8 F 71 16 126/98 99 Room Air 03/01/24 13:12 03/01/24 13:12 03/01/24 13:12 03/01/24 13:12 03/01/24 13:12 03/01/24 13:12 Operation Date: 03/01/24 15:15 Proposed Procedures p Left Lower Extremity skin graft(Left) - Anastacio Moss DO Familial anesthetic complications: None Was Beta Zeferino taken within 24 hours: N/A Was Clonidine taken within 24 hours: N/A Last intake: > 8 hrs Social Tobacco and No alcohol Exam alert, oriented x 3, clear to auscultation bilaterally and regular rate & rhythm Airway Mallampati: Class IV Dentition: chipped Comments: Comments: large womack CV/HEM Coronary Artery Disease (stents), Hypertension, Myocardial Infarction (6 years ago, states doing well since, no CP, SOB, syncope) and Peripheral Vascular Disease Metabolic Diabetes Mellitus, Hyperlipidemia and Morbid Obesity Anesthetic Plan ASA status: 3 Anesthesia: Choice Risk of > 500 ml blood loss (7ml/kg in children): No Medications/Allergies Home Medications Medication Instructions Recorded Confirmed Last Taken Type lisinopril 20 1 tab PO QAM 11/10/23 02/26/24 02/24/24 History mg-hydrochlorothiazide 25 mg tablet quetiapine 300 mg tablet (Seroquel) 300 mg PO BEDTIME 12/01/23 02/26/24 Unknown History aspirin 81 mg tablet,delayed 81 mg PO DAILY #90 tabs 12/17/23 02/26/24 02/24/24 Rx release atorvastatin 80 mg tablet 80 mg PO BEDTIME 30 days #30 tabs 12/17/23 02/26/24 Unknown Rx clopidogrel 75 mg tablet (Plavix) 75 mg PO DAILY #30 tabs 12/17/23 02/26/24 Unknown Rx duloxetine 30 mg capsule,delayed 30 mg PO DAILY #90 caps 01/27/24 03/01/24 Unknown Rx release hydroxyzine HCl 25 mg tablet 25 mg PO TID PRN itching #90 tabs 01/27/24 03/01/24 02/24/24 Rx metoprolol succinate 25 mg 25 mg PO DAILY #90 tabs 01/27/24 02/26/24 Unknown Rx tablet,extended release 24 hr polyethylene glycol 3350 17 gram 17 g PO DAILY #100 ea 01/27/24 03/01/24 Unknown Rx oral powder packet (Miralax) sennosides 8.6 mg tablet (senna) 8.6 mg PO DAILY #90 tabs 01/27/24 03/01/24 Unknown Rx gabapentin 300 mg capsule 600 mg PO TID 02/24/24 02/26/24 Unknown History metformin 500 mg tablet 500 mg PO DAILY 02/24/24 02/26/24 Unknown History naloxone 0.4 mg/mL injection 0.4 mg SUBCUT Q3M PRN OPIATE 02/24/24 03/01/24 Unknown History solution OVERDOSE oxycodone 5 mg tablet 5 mg PO Q4H PRN Pain 02/24/24 03/01/24 02/24/24 History rivaroxaban 2.5 mg tablet (Xarelto) 2.5 mg PO BID 02/24/24 03/01/24 Unknown History Allergies Allergy/AdvReac Type Severity Reaction Status Date / Time codeine Allergy ALGY-Hives Verified 11/24/23 09:38 ketorolac [From Toradol] Allergy ALGY-Hives Verified 11/24/23 09:38 trazodone Allergy ALGY-Difficulty Verified 11/24/23 09:38 Swallowing Current Medications Generic Name Dose Route Start Last Admin Trade Name Freq PRN Reason Stop Dose Admin Acetaminophen 650 mg 02/25/24 22:01 02/28/24 21:04 Acetaminophen 325 Mg Tablet PO 650 mg Q4H PRN Administration MILD PAIN Alprazolam 1 mg 02/28/24 13:00 03/01/24 12:17 Alprazolam 0.5 Mg Tablet PO 1 mg QID BATOOL Administration Atorvastatin Calcium 80 mg 02/26/24 21:00 02/29/24 20:15 Atorvastatin 40 Mg Tablet PO 80 mg BEDTIME BATOOL Administration Duloxetine HCl 30 mg 02/28/24 09:00 03/01/24 07:41 Duloxetine 30 Mg Capsule PO 30 mg DAILY BATOOL Administration Ferrous Gluconate 324 mg 02/27/24 18:00 03/01/24 07:41 Ferrous Gluconate 324 Mg Tablet PO 324 mg BIDWM BATOOL Administration Gabapentin 400 mg 02/27/24 15:00 03/01/24 07:41 Gabapentin 400 Mg Capsule PO 400 mg TID BATOOL Administration Insulin Human Lispro 0 unit 03/01/24 12:00 03/01/24 11:29 Insulin Lispro 100 Unit/1 Ml SUBCUT Not Given WM&BEDTIME [facility] Protocol Metoprolol Succinate 25 mg 02/26/24 09:00 03/01/24 07:40 Metoprolol Succinate Er (24 Hr) 25 Mg Tablet PO Not Given DAILY BATOOL Nicotine 1 patch 02/25/24 22:01 03/01/24 07:41 Nicotine 21 Mg Patch TRANSDERMA 1 patch DAILY PRN Administration NICOTINE WITHDRAWAL Nicotine Polacrilex 4 mg 02/26/24 15:26 02/26/24 15:39 Nicotine 4 Mg Lozenge MUCOUS MEM 4 mg Q2H PRN Administration NICOTINE CRAVINGS Oxycodone HCl 10 mg 02/29/24 13:18 03/01/24 07:39 Oxycodone 10 Mg Er (12 Hr) Tablet PO Not Given BID [facility] Oxycodone/Acetaminophen 1 tab 03/01/24 08:46 03/01/24 11:10 Oxycodone-Apap 10-325 Mg Tablet PO 1 tab Q6H PRN Administration MODERATE PAIN Quetiapine Fumarate 300 mg 02/26/24 21:00 02/29/24 20:16 Quetiapine 300 Mg Tablet PO Not Given BEDTIME [facility] PFSH Anesthesia Medical History Arteriovenous graft infection Alcohol dependence Psychiatric care 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 Prediabetes Erectile dysfunction Chronic pain in left shoulder Had pain present when seen 12/2021 on his first visit and thought he might have a rotator cuff tear then Generalized anxiety disorder with panic attacks Benzodiazepine abuse Dental caries associated with enamel hypomineralization Cigarette smoker Claudication in peripheral vascular disease Since 2017 with walking 100 yards or less Chronic low back pain Torn rotator cuff Hypertension Depression Surgical History History of coronary angioplasty with insertion of stent Family History Other CAD (coronary artery disease) Social History Smoking and tobacco/nicotine status: current every day tobacco/nicotine user cigarettes Packs smoked per day: 2 Alcohol intake: current Alcohol intake frequency: few times a week Substance/Drug Use: never Marital status: Single Number of children: 0 Current occupational status: employed Data Anesthesia 02/27/24 06:08 03/01/24 04:14 BMP 02/29/24 03/01/24 09:27 04:14 Sodium 137 138 Potassium 4.3 4.0 Chloride 105 105 Carbon Dioxide 24 22 BUN 13 12 Creatinine 0.6 L 0.6 L Glucose 186 H 212 H Calcium 9.0 9.0 Liver Function 02/29/24 03/01/24 Range/Units 09:27 04:14 Total Bilirubin 0.2 0.2 (0.15-1.2) mg/dL AST 19 13 (0-40) U/L ALT 36 28 (0-41) U/L Alkaline Phosphatase 111 100 (40-130) U/L Albumin 4.1 3.6 (3.5-5.2) g/dL Cardiac Studies: Echocardiogram 08/07/23 Sestamibi Stress Test (Cardiology) 08/09/23
[2024-03-01] MEDS: midazolam 1 mg/mL INJ 2 mL 2 MG IVP (13:44)
[2024-03-01] MEDS: sodium chloride 0.9% 1,000 ML 30 ML IV (13:44)
--- NOTE | 2024-03-01 15:45 | PM.PN ---
Vitals/I&O/Wt Last Vital Signs Temp 97.8 F 03/01/24 13:12 Pulse 71 03/01/24 13:12 Resp 16 03/01/24 13:12 BP 126/98 03/01/24 13:12 Pulse Ox 99 03/01/24 13:12 O2 Del Method Room Air 03/01/24 13:12 Weight last 48 hrs Weight 229 lb 6 oz Data 02/27/24 06:08 03/01/24 04:14 A&P Assessment and plan (1) Dehiscence of wound: Plan Split thickness skin graft to left lower extremity Risks and benefits of procedure, including but not limited to, scar, numbness, pain, graft failure, need for further surgery, damage to surrounding structures, poor wound healing, were explained to the patient. He is understanding of the risks and wishes to proceed. Graft be taken from his left thigh. Attestations Medical Necessity Statement*: Per primary Coding Level of Care Code Acute Code for [facility] Fwd Diagnoses Dehiscence of wound T81.30XA
[2024-03-01] MEDS: ceFAZolin 2,000 MG in sodium chloride 0.9% (plus) 50 ML 100 MG IV (16:08)
[2024-03-01] MEDS: mineral oil light VIAL 10 mL 20 ML MISCELLANE (16:38)
[2024-03-01] MEDS: lidocaine-epi 2% PF 1:200,000 20 mL SDV XX (16:38)
--- NOTE | 2024-03-01 17:39 | P.OP_ITS ---
Operative Report Date of procedure: March 01, 2024 Pre-op diagnosis: Open wound left lower extremity Post-op diagnosis: same Procedure done: Split-thickness skin graft left lower extremity Implants: Quarter inch iodoform packing gauze Specimens removed/disposition: None Surgeon: Anastacio Moss DO Anesthesia: General and Local Estimated blood loss (mL): 5 Complications: None apparent Brief History: This is a very pleasant 44-year-old gentleman who has not open wound with a good healthy granulation tissue bed after dehiscence of an incision across the medial aspect of the left popliteal fossa for a vascular procedure. Split-thickness skin graft was indicated. The risks and benefits were explained and documented. Procedure: Patient was wheeled operative room placed on the OR table in the supine position. Left lower extremity was inspected prepped and draped in usual sterile fashion. A timeout was performed. All present were in agreement. Mineral oil was placed across the patient's left lateral thigh and a dermatome with 1 inch of with was used to take out 2 strips of split-thickness skin graft with a dermatome set at 14. These were then meshed and stapled across the wound on the medial aspect of his left popliteal fossa. The total size of the wound that was grafted measured 19 x 3.5 cm. There was an area of wound tunneling on the anterior aspect of the wound near the superior edge that was not included. There was good coverage. 2% lidocaine with epinephrine was used to anesthetize the donor site. Xeroform gauze was placed over the donor site and then over the graft site. Telfa was placed over the Xeroform. The Xeroform was stapled into place a couple times near the area of tunneling which was excluded completely from the bandage. Next 4 x 4 gauze was folded and packed on top of the Telfa and into the crevice of the wound. ABD pads were then applied and Kerlix was wrapped around the entirety of the wound, leaving the area of tunneling exposed for dressing changes. A knee immobilizer was placed. Patient tolerated proced ure well.
[2024-03-01] MEDS: HYDROmorphone 1 mg/mL INJ 1 mL 0.5 MG IVP (18:01)
--- NOTE | 2024-03-01 18:25 | ANE.PACU2 ---
Inpatient post-anesthesia follow up: Airway intact: Yes Vital signs: Temperature 97.8 F Pulse Rate 74 Respiratory Rate 16 Blood Pressure 116/73 Pulse Oximetry 95 Oxygen Delivery Me thod Room Air Oxygen Flow Rate Fraction of Inspir ed Oxygen Hydration adequate: Yes Nausea and vomiting: No Pain level: 1 Mental status: Baseline
[2024-03-01] MEDS: HYDROmorphone 1 mg/mL INJ 1 mL IVP ×2 (19:20→22:15)
[2024-03-01] MEDS: atorvastatin 40 mg Tablet 80 MG PO (20:06)
[2024-03-01 20:45] LABS: Glucose Point of Care 371 mg/dL (70-110)
[2024-03-01] MEDS: insulin lispro 100 unit/1 mL SUBCUT (21:13)
[2024-03-02] VITALS (14 sets, daily range): BP systolic 111–143; BP diastolic 73–80; PULSE 63–82; RESP 16–24; TEMP 36.6–37.1; O2SAT 95–97
[2024-03-02] MEDS: HYDROmorphone 1 mg/mL INJ 1 mL IVP ×6 (01:26→21:53)
[2024-03-02] MEDS: oxyCODONE-APAP 10-325 mg Tablet 1 TAB PO ×2 (04:00→20:45)
[2024-03-02 04:44] LABS: Basophils % 0.2 %; Hematocrit 45.3 % (37-53); Lymphocytes # 1.5 10^3/uL (0.8-4.8); Lymphocytes % 12.7 %; Mean Corpuscular HGB Conc 29.6 g/dL (30-55); Mean Corpuscular Hemoglobin 27.5 pg (27-33); Mean Corpuscular Volume 92.8 fl (82-101); Mean Platelet Volume 8.6 fL (7.4-10.4); Monocytes # 0.3 10^3/uL (0.2-0.9); Monocytes % 2.8 %; Nucleated Red Blood Cells % 0 %; Platelet Count 348 10^3/cmm (157-399); Red Blood Count 4.88 10^6/uL (3.85-5.65); Red Cell Distribution Width 12.6 % (12.1-15.1); White Blood Count 11.67 10^3/uL (3.29-11.43)
[2024-03-02 05:04] LABS: Blood Urea Nitrogen 12 mg/dL (6-20); Calcium 9.3 mg/dL (8.5-10.5); Carbon Dioxide 17 mmol/L (22-29); Chloride 100 mmol/L (98-107); Glomerular Filtration Rate 145.7 mL/min (90-130); Glucose 304 mg/dL (65-115); Magnesium 2.1 mg/dL (1.7-2.3); Osmolality Calculated 283 mOsm/kg (285-295); Sodium 131 mmol/L (136-145)
[2024-03-02 05:05] LABS: Slide Review Slide Review Perform
[2024-03-02 05:06] LABS: Anion Gap 18.6 (5-19); Creatinine Clr Calc Pharmacy 181.9259; Potassium 4.6 mmol/L (3.5-5.1)
--- NOTE | 2024-03-02 06:01 | P.PN_ITS ---
Subjective 2 Subjective: Patient seen and examined. Pain controlled Vitals/I&O/Wt Last Vital Signs Temp 97.8 F 03/02/24 05:32 Pulse 74 03/02/24 05:32 Resp 18 03/02/24 05:32 BP 116/73 03/02/24 05:32 Pulse Ox 95 03/02/24 05:32 O2 Del Method Room Air 03/02/24 05:32 03/01/24 03/01/24 03/02/24 14:59 22:59 06:59 Intake Total 489.5 / 489.5 600 / 1089.5 Output Total 1200 / 1205 Balance 484.5 / 484.5 -600 / -115.5 Weight last 48 hrs Weight 237 lb 6 oz Weight 229 lb 6 oz Physical Exam 2 Narrative: General: No acute distress, awake alert and oriented x 3 Dressings intact without erythema or exudate Data 03/02/24 04:34 03/02/24 04:34 A&P Assessment and plan (1) Dehiscence of wound: Plan Postoperative day #1 status post Split thickness skin graft to left lower extremity Daily dressing changes only to the outside dressing, with packing of half-inch plain packing into the tunnel, gently. Dressing under the brown [place] cannot be removed except for by Dr. Ajay Medrano will be covering for me today until Wednesday Medical management per hospitalist Attestations 2 Medical Necessity Statement*: Per primary Coding Level of Care Code Acute Code for [facility] Fwd Diagnoses Dehiscence of wound T81.30XA
[2024-03-02 06:23] LABS: Glucose Point of Care 277 mg/dL (70-110)
[2024-03-02] MEDS: piperacillin-tazobactam 3.375 GM in sodium chloride 0.9% (plus) 50 ML IV ×3 (06:29→22:41)
--- NOTE | 2024-03-02 07:33 | P.PN_ITS ---
Subjective 2 Subjective: seen this am complains of pain skin grafting completed yesterday knee immobalizer placed Vitals/I&O/Wt Last Vital Signs Temp 97.8 F 03/02/24 05:32 Pulse 74 03/02/24 05:32 Resp 16 03/02/24 06:29 BP 116/73 03/02/24 05:32 Pulse Ox 95 03/02/24 05:32 O2 Del Method Room Air 03/02/24 05:32 03/01/24 03/02/24 03/02/24 22:59 06:59 14:59 Intake Total 489.5 / 489.5 600 / 1089.5 Output Total 5 1600 / 1605 Balance 484.5 / 484.5 -1000 / -515.5 Weight last 48 hrs Weight 107.671 kg Weight 104.043 kg Physical Exam 2 Narrative: General: No acute distress, AO x3 HEENT: PERRLA, pupils bilaterally equal and reactive Chest: Normal vesicular breath sounds, no added sounds, equal good air entry bilaterally CVS: S1-S2 regular, no murmurs, no tachycardia, no gallops, no rubs Abdomen: Soft, nontender, wound covered with dressing knee immobilized Data 03/02/24 04:34 03/02/24 04:34 A&P Assessment and plan (1) Dehiscence of wound: (2) Encounter for wound care: As per patient he underwent vascular graft exploration for graft infection from Staphylococcus 4 weeks ago at [facility]. Was on IV vancomycin till 02/21. Will request documents from outside hospital. Appreciate ESR, CRP. Blood cultures so far negative. CT of lower limb without contrast negative for any collection. Wound care with wet-to-dry gauze under sterile precautions twice daily. Patient will need to follow-up as an outpatient to wound care clinic as well. Gen surgery consulted hold plavix and xarelto (3) Arteriovenous graft infection: Documents awaited from outside hospital. Reviewed some lab work sent in. No antibiotics for now. For now infection less likely (4) CAD (coronary artery disease): Denies any active chest pain. Appreciate A1c, lipid panel. Continue with home dose of Plavix, statin, Xarelto Troponin cycled negative overnight. Qualifiers: Associated angina: with unstable angina Coronary Disease-Associated Artery/Lesion type: [place] artery [place] vs. transplanted heart: [place] heart Qualified Code(s): I25.110 - Atherosclerotic heart disease of [place] coronary artery with unstable angina pectoris (5) Peripheral vascular disease: Continue with Xarelto at 2.5 mg twice daily dose which seems to be in setting of prophylaxis for PAD (6) Suicidal ideation: As per primary team Plan Hypertension: Goal blood pressure less than 140/90 mmHg. Blood pressure slightly soft overnight. Continue with home dose of metoprolol. Holding off on lisinopril and hydrochlorothiazide for now. Most likely patient can be discharged only on lisinopril and hydrochlorothiazide can be discontinued. Last echocardiogram from July 2023 showed an EF of 45 to 50% with mild to moderate lateral wall hypokinesia, stage I diastolic dysfunction. Given significant wound with recent history of vascular graft getting infected with possibly patient needing skin graft patient is at high risk of infection as an outpatient and should be in a monitored setting. Discussed in detail with Dr. Andrews. Patient would benefit from possible placement to SNF for all the above. Cardiac diet pt will need SNF placement at conclusion of this hospitalization pt is at high risk of wound infection giving unsanitary conditions at home. Todays plan 03/02 - patient underwent skin grafting 03/01 - hold plavix and xarelto for additional 24 hours - start above 03/03 - gen surgery recs appreciated. follow wound orders as per surgery - patient will need snf placement - knee immobilizer in place - continue oxycontin 10 bid and hydrocodone 7.5 q6h prn for pain - continue empiric coverage with zosyn - continue to look for placement - discussed wound care with RN Attestations 2 Medical Necessity Statement*: requires SNF Diagnoses Dehiscence of wound T81.30XA Encounter for wound care Arteriovenous graft infection T82.7XXA Coronary artery disease involving [place] coronary artery of [place] heart with unstable angina pectoris I25.110 Associated angina: with unstable angina Coronary Disease-Associated Artery/Lesion type: [place] artery [place] vs. transplanted heart: [place] heart Peripheral vascular disease I73.9 Suicidal ideation R45.851
[2024-03-02] MEDS: gabapentin 400 mg Capsule PO ×3 (08:34→20:45)
[2024-03-02] MEDS: ferrous gluconate 324 mg Tablet PO ×2 (08:34→17:15)
[2024-03-02] MEDS: metoprolol succinate ER (24 HR) 25 mg Tablet PO (08:34)
[2024-03-02] MEDS: ALPRAZolam 0.5 mg Tablet 1 MG PO ×4 (08:34→20:46)
[2024-03-02] MEDS: duloxetine 30 mg Capsule PO (08:34)
[2024-03-02] MEDS: oxyCODONE 10 mg ER (12 HR) Tablet PO ×2 (08:34→17:14)
[2024-03-02] MEDS: insulin lispro 100 unit/1 mL SUBCUT ×4 (08:34→21:54)
[2024-03-02 11:22] LABS: Glucose Point of Care 352 mg/dL (70-110)
[2024-03-02 16:23] LABS: Glucose Point of Care 295 mg/dL (70-110)
--- NOTE | 2024-03-02 17:52 | P.NPUPN_ITS ---
Subjective NPU 2 Subjective: 44-year-old male admitted with suicidal ideation with considerable problems with infected lower left leg with concerns over her recent staph infection. Patient had surgery,no complications reported other than pain. He denies suicidal thoughts and reports hope to go to physical rehabilitation center. Mental Status Exam 2 MSE Comments: This is an obese white male in hospital scrubs with adequate grooming and fair eye contact. There is no evidence of any abnormal involuntary motor movements tics or tremors appreciated. He was cooperative with exam in mild distress. Speech was normal in rate, rhythm and prosody. Mood was described as good. His affect was bright. Thought process was linear and organized. Thought content: Patient denied suicidal ideation with no plan and denies homicidal ideation, there were no delusions reported or noted, He denied any auditory or visual hallucinations. Attention and concentration appeared intact and memory appeared mostly reliable but none were formally tested. He is alert and oriented x3. Insight was limited. Judgment appeared adequate and impulse control was at baseline. Vitals/I&O/Wt Last Vital Signs Temp 98.8 F 03/02/24 16:25 Pulse 77 03/02/24 16:25 Resp 18 03/02/24 17:51 BP 129/77 03/02/24 16:25 Pulse Ox 97 03/02/24 16:25 O2 Del Method Room Air 03/02/24 16:25 03/02/24 03/02/24 03/02/24 06:59 14:59 22:59 Intake Total 600 / 1089.5 2009 Output Total 1600 / 1605 1300 / 1300 Balance -1000 / -515.5 710 / 710 Weight last 48 hrs Weight 107.671 kg Weight 104.043 kg Data NPU 03/02/24 04:34 03/02/24 04:34 A&P Assessment and plan (1) Dehiscence of wound: (2) Major depressive disorder: (3) Panic disorder: (4) Alcohol dependence: Qualifiers: Substance use status: in remission Qualified Code(s): F10.21 - Alcohol dependence, in remission (5) Generalized anxiety disorder with panic attacks: Plan 1. Patient does not require readmission to psychiatric unit, will follow while here with plan to facilitate transfer to nursing home facility for further treatment after surgery. 2. Referrals for psychiatric care on outpatient basis. Continue medications as prescribed. Will sign off. Involuntary Hold Information 2 96 Hour Hold: 96 Hour Involuntary Admission: No Attestations NPU 2 Medical Necessity Statement*: No inpatient psychiatric hospitalization necessary at this time. Coding Level of Care Code Acute Code for [facility] Fwd Diagnoses Dehiscence of wound T81.30XA Major depressive disorder F32.9 Panic disorder F41.0 Alcohol dependence in remission F10.21 Substance use status: in remission Generalized anxiety disorder with panic attacks F41.1; F41.0
[2024-03-02 20:30] LABS: Glucose Point of Care 353 mg/dL (70-110)
[2024-03-02] MEDS: atorvastatin 40 mg Tablet 80 MG PO (20:46)
[2024-03-02] MEDS: quetiapine 300 mg Tablet 150 MG PO (21:54)
[2024-03-03] VITALS (11 sets, daily range): BP systolic 113–132; BP diastolic 73–84; PULSE 60–67; RESP 16–24; TEMP 36.5–36.7; O2SAT 96–99
[2024-03-03] MEDS: HYDROmorphone 1 mg/mL INJ 1 mL IVP ×4 (03:40→16:44)
[2024-03-03] MEDS: piperacillin-tazobactam 3.375 GM in sodium chloride 0.9% (plus) 50 ML IV ×3 (05:27→22:14)
[2024-03-03 06:34] LABS: Glucose Point of Care 332 mg/dL (70-110)
[2024-03-03 06:39] LABS: Basophils % 0.4 %; Eosinophils % 0.3 %; Hematocrit 40.2 % (37-53); Lymphocytes # 3.8 10^3/uL (0.8-4.8); Lymphocytes % 42.7 %; Mean Corpuscular HGB Conc 31.3 g/dL (30-55); Mean Corpuscular Hemoglobin 27.4 pg (27-33); Mean Corpuscular Volume 87.4 fl (82-101); Mean Platelet Volume 8.7 fL (7.4-10.4); Monocytes # 0.6 10^3/uL (0.2-0.9); Monocytes % 6.7 %; Neutrophils # 4.42 10^3/uL (1.8-7.7); Neutrophils % 49.3 %; Nucleated Red Blood Cells % 0 %; Platelet Count 361 10^3/cmm (157-399); Red Cell Distribution Width 13.2 % (12.1-15.1); White Blood Count 8.97 10^3/uL (3.29-11.43)
[2024-03-03 06:55] LABS: Anion Gap 11.6 (5-19); Blood Urea Nitrogen 13 mg/dL (6-20); Calcium 9.2 mg/dL (8.5-10.5); Carbon Dioxide 28 mmol/L (22-29); Chloride 99 mmol/L (98-107); Creatinine Clr Calc Pharmacy 155.9365; Glucose 335 mg/dL (65-115); Osmolality Calculated 291 mOsm/kg (285-295); Potassium 4.6 mmol/L (3.5-5.1); Sodium 134 mmol/L (136-145)
[2024-03-03] MEDS: ferrous gluconate 324 mg Tablet PO ×2 (09:10→17:10)
[2024-03-03] MEDS: insulin lispro 100 unit/1 mL SUBCUT ×4 (09:10→20:40)
[2024-03-03] MEDS: metoprolol succinate ER (24 HR) 25 mg Tablet PO (09:10)
[2024-03-03] MEDS: duloxetine 30 mg Capsule PO (09:10)
[2024-03-03] MEDS: oxyCODONE 10 mg ER (12 HR) Tablet PO ×2 (09:10→17:10)
[2024-03-03] MEDS: ALPRAZolam 0.5 mg Tablet 1 MG PO ×4 (09:10→20:39)
[2024-03-03] MEDS: gabapentin 400 mg Capsule PO ×3 (09:11→20:39)
--- NOTE | 2024-03-03 11:14 | P.PN_ITS ---
Subjective 2 Subjective: This is a 44-year-old male who is postoperative day 2 status post split thickness skin graft of the left lower extremity. Patient is doing well knee immobilizer is in place no significant issues no significant pain. Vitals/I&O/Wt Last Vital Signs Temp 97.8 F 03/03/24 07:13 Pulse 67 03/03/24 07:13 Resp 18 03/03/24 09:57 BP 118/78 03/03/24 07:13 Pulse Ox 97 03/03/24 07:13 O2 Del Method Room Air 03/03/24 07:13 03/02/24 03/03/24 03/03/24 22:59 06:59 14:59 Intake Total 1390 / 3400 50 / 3450 170 / 170 Output Total 2200 / 3500 450 / 3950 900 / 900 Balance -810 / -100 -400 / -500 -730 / -730 Weight last 48 hrs Weight 237 lb 6 oz Physical Exam 2 Extremity: OTHER: Superficial dressing was removed and packing removed, no evidence of purulence there is minimal evidence of discharge from the area of the packing the packing was replaced and the knee immobilizer was replaced. Data 03/03/24 05:04 03/03/24 05:04 Micro: Microbiology 02/26/24 17:58 Blood Culture - Final Blood NO GROWTH AFTER 5 DAYS 02/26/24 18:01 Blood Culture - Final Blood NO GROWTH AFTER 5 DAYS A&P Assessment and plan (1) Encounter for wound care: Plan Patient is having a good progression after left lower extremity split-thickness skin graft. Patient will continue daily packing change by medical staff. Regarding level of activity patient needs to remain with a new immobilizer at all times and during the next 72 hours he should remain as touch base weightbearing of that extremity, I have recommended the patient to avoid full by wearing on that extremity to prevent displacement of the skin graft and failure. He shows understanding and agrees. Graft will be MBL next week by Dr. Moss. Attestations 2 Medical Necessity Statement*: Per medical team. Coding Level of Care Code Acute Code for [facility] Fwd Diagnoses Encounter for wound care
[2024-03-03 12:13] LABS: Glucose Point of Care 266 mg/dL (70-110)
--- NOTE | 2024-03-03 13:45 | PM.PN ---
Subjective Subjective: seen today no acute events overnight seen by surgery today for dressing change is nonweight bearing on left leg Vitals/I&O/Wt Last Vital Signs Temp 97.7 F 03/03/24 11:25 Pulse 62 03/03/24 11:25 Resp 16 03/03/24 11:25 BP 116/76 03/03/24 11:25 Pulse Ox 98 03/03/24 11:25 O2 Del Method Room Air 03/03/24 11:25 03/02/24 03/03/24 03/03/24 22:59 06:59 14:59 Intake Total 1390 / 3400 50 / 3450 270 / 270 Output Total 2200 / 3500 450 / 3950 900 / 900 Balance -810 / -100 -400 / -500 -630 / -630 Weight last 48 hrs Weight 107.671 kg Physical Exam Narrative: General: No acute distress, AO x3 HEENT: PERRLA, pupils bilaterally equal and reactive Chest: Normal vesicular breath sounds, no added sounds, equal good air entry bilaterally CVS: S1-S2 regular, no murmurs, no tachycardia, no gallops, no rubs Abdomen: Soft, nontender, wound covered with dressing knee immobilized Data 03/03/24 05:04 03/03/24 05:04 Micro: Microbiology 02/26/24 17:58 Blood Culture - Final Blood NO GROWTH AFTER 5 DAYS 02/26/24 18:01 Blood Culture - Final Blood NO GROWTH AFTER 5 DAYS A&P Assessment and plan (1) Dehiscence of wound: (2) Encounter for wound care: As per patient he underwent vascular graft exploration for graft infection from Staphylococcus 4 weeks ago at [facility]. Was on IV vancomycin till 02/21. Will request documents from outside hospital. Appreciate ESR, CRP. Blood cultures so far negative. CT of lower limb without contrast negative for any collection. Wound care with wet-to-dry gauze under sterile precautions twice daily. Patient will need to follow-up as an outpatient to wound care clinic as well. Gen surgery consulted hold plavix and xarelto (3) Arteriovenous graft infection: Documents awaited from outside hospital. Reviewed some lab work sent in. No antibiotics for now. For now infection less likely (4) CAD (coronary artery disease): Denies any active chest pain. Appreciate A1c, lipid panel. Continue with home dose of Plavix, statin, Xarelto Troponin cycled negative overnight. Qualifiers: Associated angina: with unstable angina Coronary Disease-Associated Artery/Lesion type: [place] artery [place] vs. transplanted heart: [place] heart Qualified Code(s): I25.110 - Atherosclerotic heart disease of [place] coronary artery with unstable angina pectoris (5) Peripheral vascular disease: Continue with Xarelto at 2.5 mg twice daily dose which seems to be in setting of prophylaxis for PAD (6) Suicidal ideation: As per primary team Plan Hypertension: Goal blood pressure less than 140/90 mmHg. Blood pressure slightly soft overnight. Continue with home dose of metoprolol. Holding off on lisinopril and hydrochlorothiazide for now. Most likely patient can be discharged only on lisinopril and hydrochlorothiazide can be discontinued. Last echocardiogram from July 2023 showed an EF of 45 to 50% with mild to moderate lateral wall hypokinesia, stage I diastolic dysfunction. Given significant wound with recent history of vascular graft getting infected with possibly patient needing skin graft patient is at high risk of infection as an outpatient and should be in a monitored setting. Discussed in detail with Dr. Andrews. Patient would benefit from possible placement to SNF for all the above. Cardiac diet pt will need SNF placement at conclusion of this hospitalization pt is at high risk of wound infection giving unsanitary conditions at home. Todays plan 03/03 - patient underwent skin grafting 03/01 - hold plavix and xarelto for additional 24 hours - gen surgery recs appreciated. follow wound orders as per surgery - patient will need snf placement - knee immobilizer in place. pt is non weightbearing on left leg. - continue oxycontin 10 bid and hydrocodone 7.5 q6h prn for pain - continue empiric coverage with zosyn - continue to look for placement - had dressing change today - stop iv dilaudid - pt ok with it Attestations Medical Necessity Statement*: requires SNF Diagnoses Dehiscence of wound T81.30XA Encounter for wound care Arteriovenous graft infection T82.7XXA Coronary artery disease involving [place] coronary artery of [place] heart with unstable angina pectoris I25.110 Associated angina: with unstable angina Coronary Disease-Associated Artery/Lesion type: [place] artery [place] vs. transplanted heart: [place] heart Peripheral vascular disease I73.9 Suicidal ideation R45.592
--- NOTE | 2024-03-03 16:08 | PC.NURSE ---
Despite multiple attempts to educate patient, he is refusing to adhere to diabetic diets. He is asking multiple different people for icecream, regular soda with sugar, etc. He is also demanding pain medication more frequently than this RN is able to give them. Pt becomes hostile when wants are not met. Dr. Parham notified.
[2024-03-03 16:34] LABS: Glucose Point of Care 291 mg/dL (70-110)
[2024-03-03] MEDS: oxyCODONE-APAP 10-325 mg Tablet 1 TAB PO ×2 (16:44→22:48)
[2024-03-03 20:12] LABS: Glucose Point of Care 313 mg/dL (70-110)
[2024-03-03] MEDS: atorvastatin 40 mg Tablet 80 MG PO (20:39)
[2024-03-03] MEDS: HYDROmorphone 1 mg/mL INJ 1 mL 0.5 MG IVP (20:39)
--- NOTE | 2024-03-03 20:47 | PC.NURSE ---
Upon entry to room pt resting comfortably in bed, no s/sx of pain. No facial grimacing, or pain voiced. When pt awakened c/o pain 07/06. PRN diluadid administered per orders, updated pt on order and that it ends at 0700. Pt refused his HS dose of Seroquel stating I can't take 300mg It'll knock me on my ass . Pt educated on medications, doses. Will refer to Dr. Andrews for review.
[2024-03-03] MEDS: insulin glargine 100 units/1 mL 5 UNIT SUBCUT (22:15)
[2024-03-04] VITALS (14 sets, daily range): BP systolic 112–145; BP diastolic 71–89; PULSE 59–71; RESP 15–18; TEMP 36.3–36.7; O2SAT 91–99
[2024-03-04] MEDS: HYDROmorphone 1 mg/mL INJ 1 mL 0.5 MG IVP (02:08)
[2024-03-04] MEDS: piperacillin-tazobactam 3.375 GM in sodium chloride 0.9% (plus) 50 ML IV ×3 (05:18→22:02)
[2024-03-04] MEDS: oxyCODONE-APAP 10-325 mg Tablet 1 TAB PO ×4 (05:19→23:34)
[2024-03-04 05:54] LABS: Basophils # 0.1 10^3/uL (0.0-0.1); Basophils % 0.6 %; Eosinophils # 0.1 10^3/uL (0.0-0.8); Eosinophils % 0.6 %; Hematocrit 39.3 % (37-53); Lymphocytes # 4.4 10^3/uL (0.8-4.8); Mean Corpuscular HGB Conc 32.1 g/dL (30-55); Mean Corpuscular Hemoglobin 28.1 pg (27-33); Mean Corpuscular Volume 87.5 fl (82-101); Mean Platelet Volume 8.4 fL (7.4-10.4); Monocytes # 0.6 10^3/uL (0.2-0.9); Neutrophils # 3.61 10^3/uL (1.8-7.7); Neutrophils % 41.2 %; Nucleated Red Blood Cells % 0 %; Platelet Count 294 10^3/cmm (157-399); Red Blood Count 4.49 10^6/uL (3.85-5.65); Red Cell Distribution Width 13.2 % (12.1-15.1); White Blood Count 8.74 10^3/uL (3.29-11.43)
[2024-03-04 06:09] LABS: Anion Gap 12.1 (5-19); Blood Urea Nitrogen 14 mg/dL (6-20); Calcium 8.8 mg/dL (8.5-10.5); Carbon Dioxide 26 mmol/L (22-29); Chloride 103 mmol/L (98-107); Creatinine Clr Calc Pharmacy 155.9365; Glucose 202 mg/dL (65-115); Magnesium 1.8 mg/dL (1.7-2.3); Osmolality Calculated 290 mOsm/kg (285-295); Potassium 4.1 mmol/L (3.5-5.1); Sodium 137 mmol/L (136-145)
[2024-03-04 06:13] LABS: Glucose Point of Care 233 mg/dL (70-110)
[2024-03-04] MEDS: ferrous gluconate 324 mg Tablet PO ×2 (08:40→17:22)
[2024-03-04] MEDS: oxyCODONE 10 mg ER (12 HR) Tablet PO (08:40)
[2024-03-04] MEDS: ALPRAZolam 0.5 mg Tablet 1 MG PO ×4 (08:42→20:19)
[2024-03-04] MEDS: duloxetine 30 mg Capsule PO (08:42)
[2024-03-04] MEDS: metoprolol succinate ER (24 HR) 25 mg Tablet PO (08:42)
[2024-03-04] MEDS: gabapentin 400 mg Capsule PO ×3 (08:42→20:20)
--- NOTE | 2024-03-04 09:37 | P.PN_ITS ---
Subjective 2 Subjective: seen this morning resting comofrtably in bed fasting glucose 202 lantus added last night Vitals/I&O/Wt Last Vital Signs Temp 97.8 F 03/04/24 07:55 Pulse 60 03/04/24 07:55 Resp 15 03/04/24 08:40 BP 114/78 03/04/24 07:55 Pulse Ox 97 03/04/24 07:55 O2 Del Method Room Air 03/04/24 07:55 03/03/24 03/04/24 03/04/24 22:59 06:59 14:59 Intake Total 170 / 440 50 / 490 120 / 120 Output Total 850 / 1750 Balance -680 / -1310 50 / -1260 120 / 120 Physical Exam 2 Narrative: General: No acute distress, AO x3 HEENT: PERRLA, pupils bilaterally equal and reactive Chest: Normal vesicular breath sounds, no added sounds, equal good air entry bilaterally CVS: S1-S2 regular, no murmurs, no tachycardia, no gallops, no rubs Abdomen: Soft, nontender, wound covered with dressing knee immobilized Data 03/04/24 05:45 03/04/24 05:45 A&P Assessment and plan (1) Dehiscence of wound: (2) Encounter for wound care: As per patient he underwent vascular graft exploration for graft infection from Staphylococcus 4 weeks ago at [facility]. Was on IV vancomycin till 02/21. Will request documents from outside hospital. Appreciate ESR, CRP. Blood cultures so far negative. CT of lower limb without contrast negative for any collection. Wound care with wet-to-dry gauze under sterile precautions twice daily. Patient will need to follow-up as an outpatient to wound care clinic as well. Gen surgery consulted hold plavix and xarelto (3) Arteriovenous graft infection: Documents awaited from outside hospital. Reviewed some lab work sent in. No antibiotics for now. For now infection less likely (4) CAD (coronary artery disease): Denies any active chest pain. Appreciate A1c, lipid panel. Continue with home dose of Plavix, statin, Xarelto Troponin cycled negative overnight. Qualifiers: Associated angina: with unstable angina Coronary Disease-Associated Artery/Lesion type: [place] artery [place] vs. transplanted heart: [place] heart Qualified Code(s): I25.110 - Atherosclerotic heart disease of [place] coronary artery with unstable angina pectoris (5) Peripheral vascular disease: Continue with Xarelto at 2.5 mg twice daily dose which seems to be in setting of prophylaxis for PAD (6) Suicidal ideation: As per primary team Plan Hypertension: Goal blood pressure less than 140/90 mmHg. Blood pressure slightly soft overnight. Continue with home dose of metoprolol. Holding off on lisinopril and hydrochlorothiazide for now. Most likely patient can be discharged only on lisinopril and hydrochlorothiazide can be discontinued. Last echocardiogram from July 2023 showed an EF of 45 to 50% with mild to moderate lateral wall hypokinesia, stage I diastolic dysfunction. Given significant wound with recent history of vascular graft getting infected with possibly patient needing skin graft patient is at high risk of infection as an outpatient and should be in a monitored setting. Discussed in detail with Dr. Andrews. Patient would benefit from possible placement to SNF for all the above. Cardiac diet pt will need SNF placement at conclusion of this hospitalization pt is at high risk of wound infection giving unsanitary conditions at home. Todays plan 03/04 - patient underwent skin grafting 03/01 - restart plavix and xarelto today - gen surgery recs appreciated. follow wound orders as per surgery - patient will need snf placement - knee immobilizer in place. pt is non weightbearing on left leg. - continue oxycontin 10 bid and hydrocodone 10 q6h prn for pain - continue empiric coverage with zosyn - continue to look for placement - had dressing change today - iv dilaudid stopped- pt ok with it - lantus 10 units daily - mod intensity ssi - check hemoglobin a1c Attestations 2 Medical Necessity Statement*: placement pending Diagnoses Dehiscence of wound T81.30XA Encounter for wound care Arteriovenous graft infection T82.7XXA Coronary artery disease involving [place] coronary artery of [place] heart with unstable angina pectoris I25.110 Associated angina: with unstable angina Coronary Disease-Associated Artery/Lesion type: [place] artery [place] vs. transplanted heart: [place] heart Peripheral vascular disease I73.9 Suicidal ideation R45.851
[2024-03-04 10:14] LABS: Estmated Average Glucose 180; Hemoglobin A1C 7.9 % (4.0-6.0)
[2024-03-04] MEDS: clopidogrel 75 mg Tablet PO (10:57)
[2024-03-04 11:51] LABS: Glucose Point of Care 229 mg/dL (70-110)
[2024-03-04] MEDS: insulin lispro 100 unit/1 mL SUBCUT ×3 (12:03→21:22)
[2024-03-04] MEDS: HYDROmorphone 1 mg/mL INJ 1 mL IVP (13:12)
[2024-03-04] MEDS: oxyCODONE 20 mg ER (12 HR) Tablet PO ×2 (14:28→17:23)
--- NOTE | 2024-03-04 14:38 | P.PN_ITS ---
Subjective 2 Subjective: This a 44-year-old male who is postoperative day 3 status post split-thickness skin graft of the left lower extremity. Patient is doing well only complaint is pain at the level of the leg as his medication was changed yesterday. Of note patient usually received high-dose of methadone previous to this admission. This may be contributing to the fact that he has a higher requirement of narcotics at the moment. Vitals/I&O/Wt Last Vital Signs Temp 97.8 F 03/04/24 11:10 Pulse 59 L 03/04/24 11:10 Resp 18 03/04/24 13:12 BP 128/86 03/04/24 11:10 Pulse Ox 99 03/04/24 11:10 O2 Del Method Room Air 03/04/24 11:10 03/03/24 03/04/24 03/04/24 22:59 06:59 14:59 Intake Total 170 / 440 50 / 490 170 / 170 Output Total 850 / 1750 500 / 500 Balance -680 / -1310 50 / -1260 -330 / -330 Physical Exam 2 Extremity: NARRATIVE EXTREMITY EXAM: Left lower extremity evaluated, no significant changes, [place] was In place and a small opening was used to pack the wound. Data 03/04/24 05:45 03/04/24 05:45 A&P Assessment and plan (1) Encounter for wound care: Plan Adequate progression after split-thickness skin graft of the left lower extremity. Wound was packed today. No significant discharge or purulence noted. Distal neurovascular exam is normal. Will continue daily wound care, plan is for patient to transition to a rehab facility next week Dr. Moss [place] the graft. Attestations 2 Medical Necessity Statement*: Per medical team Coding Level of Care Code Acute Code for Chg Fwd Diagnoses Encounter for wound care
[2024-03-04 17:00] LABS: Glucose Point of Care 349 mg/dL (70-110)
[2024-03-04] MEDS: nicotine 21 mg Patch 1 PATCH TRANSDERMA (17:20)
[2024-03-04] MEDS: rivaroxaban 10 mg Tablet 2.5 MG PO (17:22)
[2024-03-04] MEDS: atorvastatin 40 mg Tablet 80 MG PO (20:19)
[2024-03-04 20:50] LABS: Glucose Point of Care 292 mg/dL (70-110)
[2024-03-04] MEDS: insulin glargine 100 units/1 mL 10 UNIT SUBCUT (21:21)
[2024-03-05] VITALS (9 sets, daily range): BP systolic 111–148; BP diastolic 74–94; PULSE 60–80; RESP 16–18; TEMP 36.4–37.1; O2SAT 95–98
[2024-03-05] MEDS: oxyCODONE-APAP 10-325 mg Tablet 1 TAB PO ×3 (05:32→18:24)
[2024-03-05] MEDS: piperacillin-tazobactam 3.375 GM in sodium chloride 0.9% (plus) 50 ML IV (05:32)
[2024-03-05 06:16] LABS: Glucose Point of Care 190 mg/dL (70-110)
[2024-03-05] MEDS: oxyCODONE 20 mg ER (12 HR) Tablet PO ×2 (08:19→17:14)
[2024-03-05] MEDS: ferrous gluconate 324 mg Tablet PO ×2 (08:19→17:14)
[2024-03-05] MEDS: ALPRAZolam 0.5 mg Tablet 1 MG PO ×4 (08:19→20:22)
[2024-03-05] MEDS: metoprolol succinate ER (24 HR) 25 mg Tablet PO (08:19)
[2024-03-05] MEDS: clopidogrel 75 mg Tablet PO (08:20)
[2024-03-05] MEDS: rivaroxaban 10 mg Tablet 2.5 MG PO (08:20)
[2024-03-05] MEDS: duloxetine 30 mg Capsule PO (08:20)
[2024-03-05] MEDS: gabapentin 400 mg Capsule PO ×3 (08:20→20:23)
[2024-03-05] MEDS: insulin lispro 100 unit/1 mL SUBCUT ×4 (08:21→20:23)
--- NOTE | 2024-03-05 10:21 | PM.PN ---
Subjective Subjective: seen today feels better pain better controlled Vitals/I&O/Wt Last Vital Signs Temp 97.7 F 03/05/24 07:17 Pulse 60 03/05/24 07:17 Resp 18 03/05/24 07:17 BP 143/94 03/05/24 07:17 Pulse Ox 98 03/05/24 07:17 O2 Del Method Room Air 03/05/24 07:17 03/04/24 03/05/24 03/05/24 22:59 06:59 14:59 Intake Total 290 / 460 50 / 510 290 / 290 Output Total 800 / 1300 Balance -510 / -840 50 / -790 290 / 290 Weight last 48 hrs Weight 111.266 kg Physical Exam Narrative: General: No acute distress, AO x3 HEENT: PERRLA, pupils bilaterally equal and reactive Chest: Normal vesicular breath sounds, no added sounds, equal good air entry bilaterally CVS: S1-S2 regular, no murmurs, no tachycardia, no gallops, no rubs Abdomen: Soft, nontender, wound covered with dressing knee immobilized Data 03/04/24 05:45 03/04/24 05:45 A&P Assessment and plan (1) Dehiscence of wound: (2) Encounter for wound care: As per patient he underwent vascular graft exploration for graft infection from Staphylococcus 4 weeks ago at [facility]. Was on IV vancomycin till 02/21. Will request documents from outside hospital. Appreciate ESR, CRP. Blood cultures so far negative. CT of lower limb without contrast negative for any collection. Wound care with wet-to-dry gauze under sterile precautions twice daily. Patient will need to follow-up as an outpatient to wound care clinic as well. Gen surgery consulted hold plavix and xarelto (3) Arteriovenous graft infection: Documents awaited from outside hospital. Reviewed some lab work sent in. No antibiotics for now. For now infection less likely (4) CAD (coronary artery disease): Denies any active chest pain. Appreciate A1c, lipid panel. Continue with home dose of Plavix, statin, Xarelto Troponin cycled negative overnight. Qualifiers: Associated angina: with unstable angina Coronary Disease-Associated Artery/Lesion type: [place] artery [place] vs. transplanted heart: [place] heart Qualified Code(s): I25.110 - Atherosclerotic heart disease of [place] coronary artery with unstable angina pectoris (5) Peripheral vascular disease: Continue with Xarelto at 2.5 mg twice daily dose which seems to be in setting of prophylaxis for PAD (6) Suicidal ideation: As per primary team Plan Hypertension: Goal blood pressure less than 140/90 mmHg. Blood pressure slightly soft overnight. Continue with home dose of metoprolol. Holding off on lisinopril and hydrochlorothiazide for now. Most likely patient can be discharged only on lisinopril and hydrochlorothiazide can be discontinued. Last echocardiogram from July 2023 showed an EF of 45 to 50% with mild to moderate lateral wall hypokinesia, stage I diastolic dysfunction. Given significant wound with recent history of vascular graft getting infected with possibly patient needing skin graft patient is at high risk of infection as an outpatient and should be in a monitored setting. Discussed in detail with Dr. Andrews. Patient would benefit from possible placement to SNF for all the above. Cardiac diet pt will need SNF placement at conclusion of this hospitalization pt is at high risk of wound infection giving unsanitary conditions at home. Todays plan 03/05 - patient underwent skin grafting 03/01 - restart plavix and xarelto to be continued. - gen surgery recs appreciated. follow wound orders as per surgery - patient will need snf placement - knee immobilizer in place. pt is non weightbearing on left leg. - continue oxycontin 20 bid and hydrocodone 10 q6h prn for pain - continue empiric coverage with zosyn - continue to look for placement - lantus 15 units daily - mod intensity ssi - check hemoglobin a1c 7.9 Attestations Medical Necessity Statement*: placement pending Diagnoses Dehiscence of wound T81.30XA Encounter for wound care Arteriovenous graft infection T82.7XXA Coronary artery disease involving [place] coronary artery of [place] heart with unstable angina pectoris I25.110 Associated angina: with unstable angina Coronary Disease-Associated Artery/Lesion type: [place] artery [place] vs. transplanted heart: [place] heart Peripheral vascular disease I73.9 Suicidal ideation R45.851
[2024-03-05 11:02] LABS: Glucose Point of Care 280 mg/dL (70-110)
--- NOTE | 2024-03-05 11:17 | P.PN_ITS ---
Subjective 2 Subjective: Patient evaluated at the bedside this morning, she is feeling better after medication changes by medical team. No issues regarding his left lower extremity. Vitals/I&O/Wt Last Vital Signs Temp 97.7 F 03/05/24 07:17 Pulse 60 03/05/24 07:17 Resp 18 03/05/24 07:17 BP 143/94 03/05/24 07:17 Pulse Ox 98 03/05/24 07:17 O2 Del Method Room Air 03/05/24 07:17 03/04/24 03/05/24 03/05/24 22:59 06:59 14:59 Intake Total 290 / 460 50 / 510 290 / 290 Output Total 800 / 1300 Balance -510 / -840 50 / -790 290 / 290 Weight last 48 hrs Weight 245 lb 4.8 oz Physical Exam 2 Extremity: NARRATIVE EXTREMITY EXAM: Left lower extremity superficial dressing was removed and packing was replaced no evidence of purulence no evidence of drainage. Data 03/04/24 05:45 03/04/24 05:45 A&P Assessment and plan (1) Encounter for wound care: Plan Good progression after split-thickness skin graft of the left lower extremity. Plan is to umbilical graft next week, Dr. Moss with follow-up for this. We will continue doing daily wound care. All other management per primary Attestations 2 Medical Necessity Statement*: Per primary Coding Level of Care Code Acute Code for Chg Fwd Diagnoses Encounter for wound care
[2024-03-05] MEDS: nicotine 21 mg Patch 1 PATCH TRANSDERMA (11:39)
[2024-03-05] MEDS: piperacillin-tazobactam 3.375 GM in sodium chloride 0.9% (plus) 100 ML IV ×2 (13:51→21:52)
[2024-03-05 16:22] LABS: Glucose Point of Care 302 mg/dL (70-110)
[2024-03-05] MEDS: metformin 500 mg Tablet PO (17:15)
[2024-03-05 19:56] LABS: Glucose Point of Care 226 mg/dL (70-110)
[2024-03-05] MEDS: atorvastatin 40 mg Tablet 80 MG PO (20:23)
[2024-03-05] MEDS: insulin glargine 100 units/1 mL 10 UNIT SUBCUT (20:24)
[2024-03-06] VITALS (10 sets, daily range): BP systolic 116–145; BP diastolic 78–98; PULSE 64–71; RESP 16–19; TEMP 36.5–37; O2SAT 96–98
[2024-03-06] MEDS: oxyCODONE-APAP 10-325 mg Tablet 1 TAB PO ×3 (03:42→19:06)
[2024-03-06 05:04] LABS: Basophils # 0.1 10^3/uL (0.0-0.1); Basophils % 0.9 %; Eosinophils # 0.2 10^3/uL (0.0-0.8); Eosinophils % 1.9 %; Hematocrit 40.8 % (37-53); Lymphocytes # 3.6 10^3/uL (0.8-4.8); Lymphocytes % 39.1 %; Mean Corpuscular HGB Conc 32.1 g/dL (30-55); Mean Corpuscular Hemoglobin 27.8 pg (27-33); Mean Corpuscular Volume 86.4 fl (82-101); Mean Platelet Volume 8.5 fL (7.4-10.4); Monocytes # 0.6 10^3/uL (0.2-0.9); Monocytes % 6.7 %; Neutrophils # 4.57 10^3/uL (1.8-7.7); Neutrophils % 50.4 %; Nucleated Red Blood Cells % 0 %; Platelet Count 337 10^3/cmm (157-399); Red Blood Count 4.72 10^6/uL (3.85-5.65); Red Cell Distribution Width 13.4 % (12.1-15.1); White Blood Count 9.07 10^3/uL (3.29-11.43)
[2024-03-06] MEDS: piperacillin-tazobactam 3.375 GM in sodium chloride 0.9% (plus) 100 ML IV ×2 (05:11→13:07)
[2024-03-06 05:27] LABS: Anion Gap 13.8 (5-19); Blood Urea Nitrogen 11 mg/dL (6-20); Calcium 8.8 mg/dL (8.5-10.5); Carbon Dioxide 25 mmol/L (22-29); Chloride 101 mmol/L (98-107); Creatinine Clr Calc Pharmacy 185.0881; Glomerular Filtration Rate 145.7 mL/min (90-130); Glucose 200 mg/dL (65-115); Magnesium 1.9 mg/dL (1.7-2.3); Osmolality Calculated 287 mOsm/kg (285-295); Potassium 3.8 mmol/L (3.5-5.1); Sodium 136 mmol/L (136-145)
[2024-03-06 06:29] LABS: Glucose Point of Care 240 mg/dL (70-110)
[2024-03-06] MEDS: gabapentin 400 mg Capsule PO ×3 (09:18→20:42)
[2024-03-06] MEDS: duloxetine 30 mg Capsule PO (09:18)
[2024-03-06] MEDS: rivaroxaban 10 mg Tablet 2.5 MG PO ×2 (09:19→18:04)
[2024-03-06] MEDS: metformin 500 mg Tablet PO ×2 (09:19→18:04)
[2024-03-06] MEDS: clopidogrel 75 mg Tablet PO (09:19)
[2024-03-06] MEDS: ferrous gluconate 324 mg Tablet PO ×2 (09:21→18:04)
[2024-03-06] MEDS: metoprolol succinate ER (24 HR) 25 mg Tablet PO (09:21)
[2024-03-06] MEDS: oxyCODONE 20 mg ER (12 HR) Tablet PO ×2 (09:21→18:02)
[2024-03-06] MEDS: ALPRAZolam 0.5 mg Tablet 1 MG PO ×4 (09:22→20:42)
[2024-03-06] MEDS: insulin lispro 100 unit/1 mL SUBCUT ×4 (09:24→20:41)
[2024-03-06 11:57] LABS: Glucose Point of Care 221 mg/dL (70-110)
--- NOTE | 2024-03-06 13:59 | PC.SOCIAL ---
IMM updated IMM dated and given to patient, copy placed in chart.
--- NOTE | 2024-03-06 15:20 | PM.PN ---
Subjective Subjective: Hospital course labs appreciated. On examination laying comfortably in bed. Denies any nausea, ting, headache. As per the nursing staff patient has been noncompliant with nonweightbearing and has been getting up and putting weight on his leg. Discussed continue with the patient he verbalized understanding. Vitals/I&O/Wt Last Vital Signs Temp 98.2 F 03/06/24 12:00 Pulse 68 03/06/24 12:00 Resp 18 03/06/24 12:00 BP 129/89 03/06/24 12:00 Pulse Ox 98 03/06/24 12:00 O2 Del Method Room Air 03/06/24 12:00 03/06/24 03/06/24 03/06/24 06:59 14:59 22:59 Intake Total 900 / 2250 1180 / 1180 Output Total 700 / 700 650 / 650 600 / 1250 Balance 200 / 1550 530 / 530 -600 / -70 Weight last 48 hrs Weight 111.266 kg Physical Exam Narrative: General: No acute distress, AO x3 HEENT: PERRLA, pupils bilaterally equal and reactive Chest: Normal vesicular breath sounds, no added sounds, equal good air entry bilaterally CVS: S1-S2 regular, no murmurs, no tachycardia, no gallops, no rubs Abdomen: Soft, nontender, no organomegaly, bowel sounds present Neuro: No focal deficits, no facial deformity, AO x3, power 5/5 in all limbs Data 03/06/24 04:17 03/06/24 04:17 A&P Assessment and plan (1) History of skin graft: Post skin graft done on 03/01. Appreciate surgical recommendations. Wound care as per surgical team for now. (2) Encounter for wound care: As per patient he underwent vascular graft exploration for graft infection from Staphylococcus 4 weeks ago at [facility]. Was on IV vancomycin till 02/21. Will request documents from outside hospital. Appreciate ESR, CRP. Blood cultures negative. CT of lower limb without contrast negative for any collection. (3) Arteriovenous graft infection: No current signs of infection. Blood cultures negative. Finished course of IV antibiotics with vancomycin 3 days prior to admission. Received vancomycin for overall 4 weeks. (4) Dehiscence of wound: (5) CAD (coronary artery disease): Denies any active chest pain. Appreciate A1c, lipid panel. Continue with home dose of Plavix, statin, Xarelto Qualifiers: Associated angina: with unstable angina Coronary Disease-Associated Artery/Lesion type: [place] artery [place] vs. transplanted heart: [place] heart Qualified Code(s): I25.110 - Atherosclerotic heart disease of [place] coronary artery with unstable angina pectoris (6) Peripheral vascular disease: Continue with Xarelto at 2.5 mg twice daily dose which seems to be in setting of prophylaxis for PAD (7) Suicidal ideation: Has been cleared from neuropsych team. Continue with Cymbalta 30 mg oral daily, nicotine patch, Seroquel 300 mg oral nightly (8) Social discord: Plan Hypertension: Goal blood pressure less than 140/90 mmHg. Continue with metoprolol succinate 25 mg oral daily. Holding off on home dose of hydrochlorothiazide and lisinopril for now. Last echocardiogram from July 2023 showed an EF of 45 to 50% with mild to moderate lateral wall hypokinesia, stage I diastolic dysfunction. Type 2 diabetes mellitus: Appreciate A1c. Continue with Lantus 10 units nightly, insulin sliding scale. Also started on home dose of metformin. For now we will continue. Carb consistent cardiac diet Xarelto will be sufficient for DVT prophylaxis Famotidine for PUD prophylaxis Discharge plan: Patient lives in a garage, has poor social support. Given recent vascular graft followed by infection, current skin graft with nonweightbearing status he would need extensive wound care, physical therapy to prevent recurrent infection. SNF placement awaited. Patient is agreeable. Attestations Medical Necessity Statement*: Requires further hospitalization for further wound care and physical therapy post lower limb skin graft with recent history of wound dehiscence, vascular graft infection in a patient who was initially admitted for suicidal ideation while safe discharge planning is sought Diagnoses History of skin graft Z94.5 Encounter for wound care Arteriovenous graft infection T82.7XXA Dehiscence of wound T81.30XA Coronary artery disease involving [place] coronary artery of [place] heart with unstable angina pectoris I25.110 Associated angina: with unstable angina Coronary Disease-Associated Artery/Lesion type: [place] artery [place] vs. transplanted heart: [place] heart Peripheral vascular disease I73.9 Suicidal ideation R45.851 Social discord Z65.8
--- NOTE | 2024-03-06 15:28 | PM.PN ---
Subjective Subjective: No acute events overnight. Patient denies any nausea, vomiting, headache. Worked with physical therapy. Hospital course labs appreciated. On examination laying comfortably in bed. Vitals/I&O/Wt Last Vital Signs Temp 98.2 F 03/06/24 12:00 Pulse 68 03/06/24 12:00 Resp 18 03/06/24 12:00 BP 129/89 03/06/24 12:00 Pulse Ox 98 03/06/24 12:00 O2 Del Method Room Air 03/06/24 12:00 03/06/24 03/06/24 03/06/24 06:59 14:59 22:59 Intake Total 900 / 2250 1180 / 1180 Output Total 700 / 700 650 / 650 600 / 1250 Balance 200 / 1550 530 / 530 -600 / -70 Weight last 48 hrs Weight 111.266 kg Physical Exam Narrative: General: No acute distress, AO x3 HEENT: PERRLA, pupils bilaterally equal and reactive Chest: Normal vesicular breath sounds, no added sounds, equal good air entry bilaterally CVS: S1-S2 regular, no murmurs, no tachycardia, no gallops, no rubs Abdomen: Soft, nontender, no organomegaly, bowel sounds present Neuro: No focal deficits, no facial deformity, AO x3, power 5/5 in all limbs Data 03/06/24 04:17 03/06/24 04:17 A&P Assessment and plan (1) History of skin graft: Post skin graft done on 03/01. Appreciate surgical recommendations. Wound care as per surgical team for now. (2) Encounter for wound care: As per patient he underwent vascular graft exploration for graft infection from Staphylococcus 4 weeks ago at [facility]. Was on IV vancomycin till 02/21. Will request documents from outside hospital. Appreciate ESR, CRP. Blood cultures negative. CT of lower limb without contrast negative for any collection. (3) Arteriovenous graft infection: No current signs of infection. Blood cultures negative. Finished course of IV antibiotics with vancomycin 3 days prior to admission. Received vancomycin for overall 4 weeks. (4) Dehiscence of wound: (5) CAD (coronary artery disease): Denies any active chest pain. Appreciate A1c, lipid panel. Continue with home dose of Plavix, statin, Xarelto Qualifiers: Associated angina: with unstable angina Coronary Disease-Associated Artery/Lesion type: [place] artery [place] vs. transplanted heart: [place] heart Qualified Code(s): I25.110 - Atherosclerotic heart disease of [place] coronary artery with unstable angina pectoris (6) Peripheral vascular disease: Continue with Xarelto at 2.5 mg twice daily dose which seems to be in setting of prophylaxis for PAD (7) Suicidal ideation: Has been cleared from neuropsych team. Continue with Cymbalta 30 mg oral daily, nicotine patch, Seroquel 300 mg oral nightly (8) Social discord: Plan Hypertension: Goal blood pressure less than 140/90 mmHg. Continue with metoprolol succinate 25 mg oral daily. Holding off on home dose of hydrochlorothiazide and lisinopril for now. Last echocardiogram from July 2023 showed an EF of 45 to 50% with mild to moderate lateral wall hypokinesia, stage I diastolic dysfunction. Type 2 diabetes mellitus: Appreciate A1c. Continue with Lantus 10 units nightly, insulin sliding scale. Also started on home dose of metformin. For now we will continue. Carb consistent cardiac diet Xarelto will be sufficient for DVT prophylaxis Famotidine for PUD prophylaxis Discharge plan: Patient lives in a garage, has poor social support. Given recent vascular graft followed by infection, current skin graft with nonweightbearing status he would need extensive wound care, physical therapy to prevent recurrent infection. SNF placement awaited. Patient is agreeable. Plan for the day: Continue with wound care as per surgical team. Physical therapy. Blood pressure slightly elevated. Restart home lisinopril but at a dose of 10 mg oral daily. Goal blood pressure less than 140/90 mmHg. Awaiting discharge to SNF. Lab holiday tomorrow. Attestations Medical Necessity Statement*: Requires further hospitalization for postsurgical care post skin graft in a patient with history of recent infected vascular graft who was initially admitted for suicidal ideation to Neuropsych Unit while safe discharge planning is sought Diagnoses History of skin graft Z94.5 Encounter for wound care Arteriovenous graft infection T82.7XXA Dehiscence of wound T81.30XA Coronary artery disease involving [place] coronary artery of [place] heart with unstable angina pectoris I25.110 Associated angina: with unstable angina Coronary Disease-Associated Artery/Lesion type: [place] artery [place] vs. transplanted heart: [place] heart Peripheral vascular disease I73.9 Suicidal ideation R45.851 Social discord Z65.8
--- NOTE | 2024-03-06 16:37 | PC.NURSE ---
Patient refused the Tylenol at this time.
[2024-03-06 17:39] LABS: Glucose Point of Care 251 mg/dL (70-110)
[2024-03-06] MEDS: famotidine 20 mg Tablet PO (18:03)
[2024-03-06] MEDS: insulin glargine 100 units/1 mL 10 UNIT SUBCUT (20:41)
[2024-03-06] MEDS: atorvastatin 40 mg Tablet 80 MG PO (20:42)
[2024-03-06 20:50] LABS: Glucose Point of Care 335 mg/dL (70-110)
[2024-03-06] MEDS: piperacillin-tazobactam 3.375 GM in sodium chloride 0.9% (plus) 50 ML IV (22:50)
[2024-03-07] VITALS (10 sets, daily range): BP systolic 124–147; BP diastolic 60–104; PULSE 65–75; RESP 15–18; TEMP 36.4–37; O2SAT 94–98
[2024-03-07] MEDS: piperacillin-tazobactam 3.375 GM in sodium chloride 0.9% (plus) 50 ML IV ×3 (05:04→21:28)
[2024-03-07] MEDS: oxyCODONE-APAP 10-325 mg Tablet 1 TAB PO ×3 (05:05→20:27)
[2024-03-07 06:33] LABS: Glucose Point of Care 238 mg/dL (70-110)
[2024-03-07] MEDS: nicotine 21 mg Patch 1 PATCH TRANSDERMA (08:43)
[2024-03-07] MEDS: oxyCODONE 20 mg ER (12 HR) Tablet PO ×2 (08:45→17:03)
[2024-03-07] MEDS: duloxetine 30 mg Capsule PO (08:46)
[2024-03-07] MEDS: ALPRAZolam 0.5 mg Tablet 1 MG PO ×4 (08:47→20:26)
[2024-03-07] MEDS: ferrous gluconate 324 mg Tablet PO ×2 (08:48→17:03)
[2024-03-07] MEDS: rivaroxaban 10 mg Tablet 2.5 MG PO ×2 (08:48→17:04)
[2024-03-07] MEDS: clopidogrel 75 mg Tablet PO (08:49)
[2024-03-07] MEDS: famotidine 20 mg Tablet PO ×2 (08:49→17:03)
[2024-03-07] MEDS: gabapentin 400 mg Capsule PO ×3 (08:49→20:27)
[2024-03-07] MEDS: metformin 500 mg Tablet PO ×2 (08:49→17:04)
[2024-03-07] MEDS: metoprolol succinate ER (24 HR) 25 mg Tablet PO (08:50)
[2024-03-07] MEDS: insulin lispro 100 unit/1 mL SUBCUT ×4 (08:55→20:29)
[2024-03-07 11:32] LABS: Glucose Point of Care 165 mg/dL (70-110)
[2024-03-07] MEDS: lisinopril 10 mg Tablet PO (14:52)
[2024-03-07 16:55] LABS: Glucose Point of Care 186 mg/dL (70-110)
[2024-03-07 20:01] LABS: Glucose Point of Care 211 mg/dL (70-110)
[2024-03-07] MEDS: atorvastatin 40 mg Tablet 80 MG PO (20:27)
[2024-03-07] MEDS: insulin glargine 100 units/1 mL 10 UNIT SUBCUT (20:29)
[2024-03-08] VITALS (12 sets, daily range): BP systolic 114–142; BP diastolic 74–87; PULSE 62–80; RESP 14–18; TEMP 36.4–36.8; O2SAT 94–97
[2024-03-08] MEDS: oxyCODONE-APAP 10-325 mg Tablet 1 TAB PO ×4 (02:27→21:44)
[2024-03-08] MEDS: piperacillin-tazobactam 3.375 GM in sodium chloride 0.9% (plus) 50 ML IV ×3 (05:32→21:43)
[2024-03-08 06:02] LABS: Glucose Point of Care 175 mg/dL (70-110)
[2024-03-08] MEDS: nicotine 21 mg Patch 1 PATCH TRANSDERMA (08:12)
[2024-03-08] MEDS: nicotine 4 mg lozenge MUCOUS MEM (08:12)
[2024-03-08] MEDS: oxyCODONE 20 mg ER (12 HR) Tablet PO ×2 (08:12→17:02)
[2024-03-08] MEDS: famotidine 20 mg Tablet PO ×2 (08:14→16:52)
[2024-03-08] MEDS: ALPRAZolam 0.5 mg Tablet 1 MG PO ×4 (08:15→20:33)
[2024-03-08] MEDS: duloxetine 30 mg Capsule PO (08:15)
[2024-03-08] MEDS: metoprolol succinate ER (24 HR) 25 mg Tablet PO (08:16)
[2024-03-08] MEDS: lisinopril 10 mg Tablet PO (08:16)
[2024-03-08] MEDS: gabapentin 400 mg Capsule PO ×3 (08:16→20:33)
[2024-03-08] MEDS: clopidogrel 75 mg Tablet PO (08:16)
[2024-03-08] MEDS: ferrous gluconate 324 mg Tablet PO ×2 (08:16→16:52)
[2024-03-08] MEDS: metformin 500 mg Tablet PO ×2 (08:16→16:52)
[2024-03-08] MEDS: rivaroxaban 10 mg Tablet 2.5 MG PO ×2 (08:17→16:52)
[2024-03-08] MEDS: insulin lispro 100 unit/1 mL SUBCUT ×3 (08:18→20:33)
[2024-03-08 11:36] LABS: Glucose Point of Care 146 mg/dL (70-110)
--- NOTE | 2024-03-08 12:27 | P.PN_ITS ---
Subjective 2 Subjective: No acute events overnight. Status quo. Patient denies any new complaints. Vitals/I&O/Wt Last Vital Signs Temp 97.6 F 03/08/24 11:07 Pulse 66 03/08/24 11:07 Resp 16 03/08/24 11:07 BP 142/76 03/08/24 11:07 Pulse Ox 94 03/08/24 11:07 O2 Del Method Nasal Cannula 03/08/24 11:07 O2 Flow Rate 2 03/08/24 11:07 03/07/24 03/08/24 03/08/24 22:59 06:59 14:59 Intake Total 168 / 1056 50 / 1106 286 / 286 Output Total 400 / 400 Balance -232 / 656 50 / 706 286 / 286 Weight last 48 hrs Weight 107.955 kg Physical Exam 2 Narrative: General: No acute distress, AO x3 HEENT: PERRLA, pupils bilaterally equal and reactive Chest: Normal vesicular breath sounds, no added sounds, equal good air entry bilaterally CVS: S1-S2 regular, no murmurs, no tachycardia, no gallops, no rubs Abdomen: Soft, nontender, no organomegaly, bowel sounds present Neuro: No focal deficits, no facial deformity, AO x3, power 5/5 in all limbs Data 03/06/24 04:17 03/06/24 04:17 A&P Assessment and plan (1) History of skin graft: Post skin graft done on 03/01. Appreciate surgical recommendations. Wound care as per surgical team for now. (2) Encounter for wound care: As per patient he underwent vascular graft exploration for graft infection from Staphylococcus [address] [facility]. Was on IV vancomycin till 02/21. Will request documents from outside hospital. Appreciate ESR, CRP. Blood cultures negative. CT of lower limb without contrast negative for any collection. (3) Arteriovenous graft infection: No current signs of infection. Blood cultures negative. Finished course of IV antibiotics with vancomycin 3 days prior to admission. Received vancomycin for overall 4 weeks. (4) Dehiscence of wound: (5) CAD (coronary artery disease): Denies any active chest pain. Appreciate A1c, lipid panel. Continue with home dose of Plavix, statin, Xarelto Qualifiers: Associated angina: with unstable angina Coronary Disease-Associated Artery/Lesion type: [place] artery [place] vs. transplanted heart: [place] heart Qualified Code(s): I25.110 - Atherosclerotic heart disease of [place] coronary artery with unstable angina pectoris (6) Peripheral vascular disease: Continue with Xarelto at 2.5 mg twice daily dose which seems to be in setting of prophylaxis for PAD (7) Suicidal ideation: Has been cleared from neuropsych team. Continue with Cymbalta 30 mg oral daily, nicotine patch, Seroquel 300 mg oral nightly (8) Social discord: Plan Hypertension: Goal blood pressure less than 140/90 mmHg. Continue with metoprolol succinate 25 mg oral daily. Holding off on home dose of hydrochlorothiazide and lisinopril for now. Last echocardiogram from July 2023 showed an EF of 45 to 50% with mild to moderate lateral wall hypokinesia, stage I diastolic dysfunction. Type 2 diabetes mellitus: Appreciate A1c. Continue with Lantus 10 units nightly, insulin sliding scale. Also started on home dose of metformin. For now we will continue. Carb consistent cardiac diet Xarelto will be sufficient for DVT prophylaxis Famotidine for PUD prophylaxis Discharge plan: Patient lives in a garage, has poor social support. Given recent vascular graft followed by infection, current skin graft with nonweightbearing status he would need extensive wound care, physical therapy to prevent recurrent infection. SNF placement awaited. Patient is agreeable. Plan for the day: Continue with wound care as per surgical team. Plan for changes surgical dressing with surgical team today. Physical therapy. Blood pressure better today. Continue with home dose of lisinopril for now. Uptitrate as for goal blood pressures. Awaiting discharge to SNF. Plan for repeat labs in AM. Patient A1c 7.9. Blood sugar still elevated. Most likely patient will not be able to continue insulin as an outpatient and needs a stricter blood sugar control. Will continue with home dose of metformin. Will add low-dose glimepiride while he is in the hospital to monitor blood sugars and to plan discharge medications. To prevent hypoglycemia will change to insulin sliding scale low-dose protocol. Attestations 2 Medical Necessity Statement*: Requires further hospitalization for post skin graft care in a patient who was originally admitted for suicidal ideation to Neuropsych Unit with recent graft infect while Level 2 and safe discharge planning is sought Diagnoses History of skin graft Z94.5 Encounter for wound care Arteriovenous graft infection T82.7XXA Dehiscence of wound T81.30XA Coronary artery disease involving [place] coronary artery of [place] heart with unstable angina pectoris I25.110 Associated angina: with unstable angina Coronary Disease-Associated Artery/Lesion type: [place] artery [place] vs. transplanted heart: [place] heart Peripheral vascular disease I73.9 Suicidal ideation R45.851 Social discord Z65.8
--- NOTE | 2024-03-08 15:06 | P.PN_ITS ---
Subjective 2 Subjective: Patient seen and examined. Dressings were taken down today. He continues to ask for pain medicine every time I see him Vitals/I&O/Wt Last Vital Signs Temp 97.6 F 03/09/24 11:16 Pulse 69 03/09/24 11:16 Resp 18 03/09/24 11:25 BP 130/85 03/09/24 11:16 Pulse Ox 98 03/09/24 11:25 O2 Del Method Room Air 03/09/24 11:16 O2 Flow Rate 2 03/08/24 11:07 03/09/24 03/09/24 03/09/24 06:59 14:59 22:59 Intake Total 50 / 504 290 / 290 Balance 50 / -96 290 / 290 Physical Exam 2 Narrative: General: No acute distress, awake alert and oriented x 3 Skin: Graft area shows at least 95% graft uptake. He no longer has a tunnel that can be packed, no signs of infection Data 03/09/24 04:28 03/09/24 04:28 A&P Assessment and plan (1) History of skin graft: Plan He should follow-up in 1 week to have his bandage taken down. In the meantime the bandage should remain along with the knee immobilizer. He does not have any weight restrictions. He should not get the bandage wet. The dressing over the donor site will fall off on its own. Surgically stable for discharge Attestations 2 Medical Necessity Statement*: Per primary Coding Level of Care Code Acute Code for Chg Fwd Diagnoses History of skin graft Z94.5
--- NOTE | 2024-03-08 15:41 | ECG_ITS ---
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 Measurements Intervals [place] Rate: 65 P: 31 [place]: 203 QRS: 49 QRSD: 126 T: 70 QT: 405 QTc: 424 Interpretive Statements SINUS RHYTHM POSSIBLE RIGHT VENTRICULAR CONDUCTION DELAY [RSR (QR) IN V1/V2] NONSPECIFIC T-WAVE ABNORMALITY Compared to ECG 02/27/2024 05:44:44 Intraventricular conduction delay no longer present T-wave abnormality still present Electronically Signed On 03-09-2024 0:04:09 CDT by Michael Cabrera M.D. [id number]
[2024-03-08] MEDS: glimepiride 2 mg Tablet PO (16:52)
[2024-03-08] MEDS: HYDROmorphone 1 mg/mL INJ 1 mL 0.5 MG IVP (16:53)
[2024-03-08 17:08] LABS: Glucose Point of Care 162 mg/dL (70-110)
[2024-03-08 20:04] LABS: Glucose Point of Care 194 mg/dL (70-110)
[2024-03-08] MEDS: atorvastatin 40 mg Tablet 80 MG PO (20:33)
[2024-03-08] MEDS: insulin glargine 100 units/1 mL 10 UNIT SUBCUT (20:34)
[2024-03-09] VITALS (10 sets, daily range): BP systolic 113–130; BP diastolic 73–85; PULSE 63–73; RESP 15–18; TEMP 36.4–36.7; O2SAT 93–98
[2024-03-09] MEDS: oxyCODONE-APAP 10-325 mg Tablet 1 TAB PO ×3 (05:03→20:19)
[2024-03-09] MEDS: piperacillin-tazobactam 3.375 GM in sodium chloride 0.9% (plus) 50 ML IV ×3 (05:04→21:17)
[2024-03-09 05:19] LABS: Basophils # 0.1 10^3/uL (0.0-0.1); Basophils % 0.7 %; Eosinophils # 0.2 10^3/uL (0.0-0.8); Eosinophils % 2.3 %; Hematocrit 45.7 % (37-53); Lymphocytes # 3.1 10^3/uL (0.8-4.8); Lymphocytes % 36.7 %; Mean Corpuscular HGB Conc 30.6 g/dL (30-55); Mean Corpuscular Hemoglobin 27.5 pg (27-33); Mean Corpuscular Volume 89.6 fl (82-101); Mean Platelet Volume 8.4 fL (7.4-10.4); Monocytes # 0.6 10^3/uL (0.2-0.9); Monocytes % 7.5 %; Neutrophils # 4.44 10^3/uL (1.8-7.7); Neutrophils % 52.1 %; Nucleated Red Blood Cells % 0 %; Platelet Count 282 10^3/cmm (157-399); Red Cell Distribution Width 14.1 % (12.1-15.1); White Blood Count 8.53 10^3/uL (3.29-11.43)
[2024-03-09 05:38] LABS: Alanine Aminotransferase 38 U/L (0-41); Albumin Level 3.6 g/dL (3.5-5.2); Alkaline Phosphatase 104 U/L (40-130); Anion Gap 16.9 (5-19); Aspartate Amino Transferase 23 U/L (0-40); Blood Urea Nitrogen 13 mg/dL (6-20); Calcium 9.1 mg/dL (8.5-10.5); Carbon Dioxide 22 mmol/L (22-29); Chloride 100 mmol/L (98-107); Creatinine Clr Calc Pharmacy 156.1506; Globulin 3.1 g/dL (1.3-4.6); Glucose 145 mg/dL (65-115); Osmolality Calculated 283 mOsm/kg (285-295); Potassium 3.9 mmol/L (3.5-5.1); Sodium 135 mmol/L (136-145); Total Bilirubin 0.3 mg/dL (0.15-1.2); Total Protein 6.7 g/dL (6.6-8.7)
[2024-03-09 06:10] LABS: Glucose Point of Care 148 mg/dL (70-110)
[2024-03-09] MEDS: glimepiride 2 mg Tablet PO ×2 (06:10→16:54)
[2024-03-09] MEDS: rivaroxaban 10 mg Tablet 2.5 MG PO ×2 (08:31→16:46)
[2024-03-09] MEDS: oxyCODONE 20 mg ER (12 HR) Tablet PO ×2 (08:31→16:45)
[2024-03-09] MEDS: metoprolol succinate ER (24 HR) 25 mg Tablet PO (08:32)
[2024-03-09] MEDS: metformin 500 mg Tablet PO ×2 (08:33→16:45)
[2024-03-09] MEDS: gabapentin 400 mg Capsule PO ×3 (08:33→20:19)
[2024-03-09] MEDS: lisinopril 10 mg Tablet PO (08:33)
[2024-03-09] MEDS: ferrous gluconate 324 mg Tablet PO ×2 (08:33→16:45)
[2024-03-09] MEDS: ALPRAZolam 0.5 mg Tablet 1 MG PO ×4 (08:33→20:20)
[2024-03-09] MEDS: famotidine 20 mg Tablet PO ×2 (08:33→16:45)
[2024-03-09] MEDS: insulin lispro 100 unit/1 mL SUBCUT ×4 (08:33→20:23)
[2024-03-09] MEDS: duloxetine 30 mg Capsule PO (08:33)
[2024-03-09] MEDS: clopidogrel 75 mg Tablet PO (08:33)
[2024-03-09 11:13] LABS: Glucose Point of Care 191 mg/dL (70-110)
--- NOTE | 2024-03-09 13:40 | PM.PN ---
Subjective Subjective: No acute vents overnight. Patient has remained medically stable and afebrile. Vitals/I&O/Wt Last Vital Signs Temp 97.6 F 03/09/24 11:16 Pulse 69 03/09/24 11:16 Resp 18 03/09/24 11:25 BP 130/85 03/09/24 11:16 Pulse Ox 98 03/09/24 11:25 O2 Del Method Room Air 03/09/24 11:16 O2 Flow Rate 2 03/08/24 11:07 03/08/24 03/09/24 03/09/24 22:59 06:59 14:59 Intake Total 168 / 454 50 / 504 290 / 290 Balance 168 / -146 50 / -96 290 / 290 Physical Exam Narrative: General: No acute distress, AO x3 HEENT: PERRLA, pupils bilaterally equal and reactive Chest: Normal vesicular breath sounds, no added sounds, equal good air entry bilaterally CVS: S1-S2 regular, no murmurs, no tachycardia, no gallops, no rubs Abdomen: Soft, nontender, no organomegaly, bowel sounds present Neuro: No focal deficits, no facial deformity, AO x3, power 5/5 in all limbs Skin: OTHER: Wound on admission. Data 03/09/24 04:28 03/09/24 04:28 A&P Assessment and plan (1) History of skin graft: Post skin graft done on 03/01. Appreciate surgical recommendations. Wound care as per surgical team for now. (2) Encounter for wound care: As per patient he underwent vascular graft exploration for graft infection from Staphylococcus 4 weeks ago at [facility]. Was on IV vancomycin till 02/21. Will request documents from outside hospital. Appreciate ESR, CRP. Blood cultures negative. CT of lower limb without contrast negative for any collection. (3) Arteriovenous graft infection: No current signs of infection. Blood cultures negative. Finished course of IV antibiotics with vancomycin 3 days prior to admission. Received vancomycin for overall 4 weeks. (4) Dehiscence of wound: (5) CAD (coronary artery disease): Denies any active chest pain. Appreciate A1c, lipid panel. Continue with home dose of Plavix, statin, Xarelto Qualifiers: Associated angina: with unstable angina Coronary Disease-Associated Artery/Lesion type: [place] artery [place] vs. transplanted heart: [place] heart Qualified Code(s): I25.110 - Atherosclerotic heart disease of [place] coronary artery with unstable angina pectoris (6) Peripheral vascular disease: Continue with Xarelto at 2.5 mg twice daily dose which seems to be in setting of prophylaxis for PAD (7) Suicidal ideation: Has been cleared from neuropsych team. Continue with Cymbalta 30 mg oral daily, nicotine patch, Seroquel 300 mg oral nightly (8) Social discord: Plan Hypertension: Goal blood pressure less than 140/90 mmHg. Continue with metoprolol succinate 25 mg oral daily. Holding off on home dose of hydrochlorothiazide and lisinopril for now. Last echocardiogram from July 2023 showed an EF of 45 to 50% with mild to moderate lateral wall hypokinesia, stage I diastolic dysfunction. Type 2 diabetes mellitus: Appreciate A1c. Continue with Lantus 10 units nightly, insulin sliding scale. Also started on home dose of metformin. For now we will continue. Carb consistent cardiac diet Xarelto will be sufficient for DVT prophylaxis Famotidine for PUD prophylaxis Discharge plan: Patient lives in a garage, has poor social support. Given recent vascular graft followed by infection, current skin graft with nonweightbearing status he would need extensive wound care, physical therapy to prevent recurrent infection. SNF placement awaited. Patient is agreeable. Plan for the day: Appreciate surgical recommendations. Wound dressing changed on 03/08. Plan to remain dressing intact for next 1 week and follow-up in surgical team in 1 week. Weightbearing as tolerated. Continue with current pain medications. Blood pressure better and stable. Continue with current antihypertensive. Most likely patient will have level 2 hearing today. Appreciate labs today. Discharge plan: Patient does not require any more wound care and is weightbearing as tolerated on feet. Most likely can discharge to back home within next 24 hours after level 2 hearing and outpatient follow-ups are set up. Attestations Medical Necessity Statement*: Requires further hospitalization and the patient post skin grafting with recent history of vein graft infection who was initially admitted for suicidal ideation while safe discharge planning is sought Diagnoses History of skin graft Z94.5 Encounter for wound care Arteriovenous graft infection T82.7XXA Dehiscence of wound T81.30XA Coronary artery disease involving [place] coronary artery of [place] heart with unstable angina pectoris I25.110 Associated angina: with unstable angina Coronary Disease-Associated Artery/Lesion type: [place] artery [place] vs. transplanted heart: [place] heart Peripheral vascular disease I73.9 Suicidal ideation R45.851 Social discord Z65.8
[2024-03-09 16:48] LABS: Glucose Point of Care 164 mg/dL (70-110)
[2024-03-09 20:02] LABS: Glucose Point of Care 156 mg/dL (70-110)
[2024-03-09] MEDS: atorvastatin 40 mg Tablet 80 MG PO (20:19)
[2024-03-09] MEDS: insulin glargine 100 units/1 mL 10 UNIT SUBCUT (20:22)
[2024-03-10] VITALS (12 sets, daily range): BP systolic 108–136; BP diastolic 72–93; PULSE 70–80; RESP 14–18; TEMP 36.3–37; O2SAT 97–98
[2024-03-10] MEDS: oxyCODONE-APAP 10-325 mg Tablet 1 TAB PO ×3 (03:33→19:23)
[2024-03-10] MEDS: piperacillin-tazobactam 3.375 GM in sodium chloride 0.9% (plus) 50 ML IV ×3 (06:02→22:16)
[2024-03-10] MEDS: glimepiride 2 mg Tablet PO ×2 (06:03→17:06)
[2024-03-10 06:06] LABS: Glucose Point of Care 165 mg/dL (70-110)
[2024-03-10] MEDS: metformin 500 mg Tablet PO ×2 (08:16→17:05)
[2024-03-10] MEDS: lisinopril 10 mg Tablet PO (08:17)
[2024-03-10] MEDS: duloxetine 30 mg Capsule PO (08:17)
[2024-03-10] MEDS: ferrous gluconate 324 mg Tablet PO ×2 (08:17→17:05)
[2024-03-10] MEDS: clopidogrel 75 mg Tablet PO (08:17)
[2024-03-10] MEDS: metoprolol succinate ER (24 HR) 25 mg Tablet PO (08:17)
[2024-03-10] MEDS: ALPRAZolam 0.5 mg Tablet 1 MG PO ×4 (08:17→20:45)
[2024-03-10] MEDS: famotidine 20 mg Tablet PO ×2 (08:17→17:05)
[2024-03-10] MEDS: oxyCODONE 20 mg ER (12 HR) Tablet PO ×2 (08:17→17:05)
[2024-03-10] MEDS: gabapentin 400 mg Capsule PO ×3 (08:17→20:45)
[2024-03-10] MEDS: insulin lispro 100 unit/1 mL SUBCUT ×4 (08:18→20:44)
[2024-03-10] MEDS: rivaroxaban 10 mg Tablet 2.5 MG PO ×2 (08:25→17:05)
[2024-03-10 11:16] LABS: Glucose Point of Care 250 mg/dL (70-110)
--- NOTE | 2024-03-10 12:36 | P.PN_ITS ---
Subjective 2 Subjective: No acute events overnight. Patient resting comfortably in bed. Complaining of pain on and off. Otherwise status quo. Vitals/I&O/Wt Last Vital Signs Temp 98.3 F 03/10/24 11:48 Pulse 77 03/10/24 11:48 Resp 16 03/10/24 11:48 BP 126/81 03/10/24 11:48 Pulse Ox 98 03/10/24 11:48 O2 Del Method Room Air 03/10/24 11:48 O2 Flow Rate 2 03/08/24 11:07 03/09/24 03/10/24 03/10/24 22:59 06:59 14:59 Intake Total 290 / 580 50 / 630 530 / 530 Balance 290 / 580 50 / 630 530 / 530 Physical Exam 2 Narrative: General: No acute distress, AO x3 HEENT: PERRLA, pupils bilaterally equal and reactive Chest: Normal vesicular breath sounds, no added sounds, equal good air entry bilaterally CVS: S1-S2 regular, no murmurs, no tachycardia, no gallops, no rubs Abdomen: Soft, nontender, no organomegaly, bowel sounds present Neuro: No focal deficits, no facial deformity, AO x3, power 5/5 in all limbs Data 03/09/24 04:28 03/09/24 04:28 A&P Assessment and plan (1) History of skin graft: Post skin graft done on 03/01. Appreciate surgical recommendations. Wound care as per surgical team for now. (2) Encounter for wound care: As per patient he underwent vascular graft exploration for graft infection from Staphylococcus 4 weeks ago at [facility]. Was on IV vancomycin till 02/21. Will request documents from outside hospital. Appreciate ESR, CRP. Blood cultures negative. CT of lower limb without contrast negative for any collection. (3) Arteriovenous graft infection: No current signs of infection. Blood cultures negative. Finished course of IV antibiotics with vancomycin 3 days prior to admission. Received vancomycin for overall 4 weeks. (4) Dehiscence of wound: (5) CAD (coronary artery disease): Denies any active chest pain. Appreciate A1c, lipid panel. Continue with home dose of Plavix, statin, Xarelto Qualifiers: Associated angina: with unstable angina Coronary Disease-Associated Artery/Lesion type: [place] artery [place] vs. transplanted heart: [place] heart Qualified Code(s): I25.110 - Atherosclerotic heart disease of [place] coronary artery with unstable angina pectoris (6) Peripheral vascular disease: Continue with Xarelto at 2.5 mg twice daily dose which seems to be in setting of prophylaxis for PAD (7) Suicidal ideation: Has been cleared from neuropsych team. Continue with Cymbalta 30 mg oral daily, nicotine patch, Seroquel 300 mg oral nightly (8) Social discord: Plan Hypertension: Goal blood pressure less than 140/90 mmHg. Continue with metoprolol succinate 25 mg oral daily. Holding off on home dose of hydrochlorothiazide and lisinopril for now. Last echocardiogram from July 2023 showed an EF of 45 to 50% with mild to moderate lateral wall hypokinesia, stage I diastolic dysfunction. Type 2 diabetes mellitus: Appreciate A1c. Continue with Lantus 10 units nightly, insulin sliding scale. Also started on home dose of metformin. For now we will continue. Carb consistent cardiac diet Xarelto will be sufficient for DVT prophylaxis Famotidine for PUD prophylaxis Discharge plan: Patient lives in a garage, has poor social support. Given recent vascular graft followed by infection, current skin graft with nonweightbearing status he would need extensive wound care, physical therapy to prevent recurrent infection. SNF placement awaited. Patient is agreeable. Plan for the day: Level 2 interview done yesterday. Awaited confirmation for now. Continue current treatment. Physical therapy. Weightbearing as tolerated. Repeat labs in AM. Discharge plan: Plan to transfer to SNF once level 2 is achieved. Attestations 2 Medical Necessity Statement*: Requires further hospitalization while safe discharge planning is sought. Diagnoses History of skin graft Z94.5 Encounter for wound care Arteriovenous graft infection T82.7XXA Dehiscence of wound T81.30XA Coronary artery disease involving [place] coronary artery of [place] heart with unstable angina pectoris I25.110 Associated angina: with unstable angina Coronary Disease-Associated Artery/Lesion type: [place] artery [place] vs. transplanted heart: [place] heart Peripheral vascular disease I73.9 Suicidal ideation R45.851 Social discord Z65.8
[2024-03-10 17:25] LABS: Glucose Point of Care 203 mg/dL (70-110)
[2024-03-10 20:31] LABS: Glucose Point of Care 186 mg/dL (70-110)
[2024-03-10] MEDS: insulin glargine 100 units/1 mL 10 UNIT SUBCUT (20:45)
[2024-03-10] MEDS: atorvastatin 40 mg Tablet 80 MG PO (20:45)
[2024-03-11] VITALS (10 sets, daily range): BP systolic 124–133; BP diastolic 77–88; PULSE 63–77; RESP 14–19; TEMP 36.4–36.9; O2SAT 96–98
[2024-03-11] MEDS: oxyCODONE-APAP 10-325 mg Tablet 1 TAB PO ×3 (02:46→19:31)
[2024-03-11] MEDS: piperacillin-tazobactam 3.375 GM in sodium chloride 0.9% (plus) 50 ML IV ×3 (05:08→21:09)
[2024-03-11] MEDS: glimepiride 2 mg Tablet PO (06:25)
[2024-03-11 06:59] LABS: Glucose Point of Care 197 mg/dL (70-110)
[2024-03-11 08:07] LABS: Glucose Point of Care 267 mg/dL (70-110)
[2024-03-11] MEDS: ALPRAZolam 0.5 mg Tablet 1 MG PO ×4 (08:31→21:06)
[2024-03-11] MEDS: metformin 500 mg Tablet PO ×2 (08:31→16:59)
[2024-03-11] MEDS: gabapentin 400 mg Capsule PO ×3 (08:32→21:07)
[2024-03-11] MEDS: oxyCODONE 20 mg ER (12 HR) Tablet PO ×2 (08:32→17:15)
[2024-03-11] MEDS: metoprolol succinate ER (24 HR) 25 mg Tablet PO (08:33)
[2024-03-11] MEDS: rivaroxaban 10 mg Tablet 2.5 MG PO ×2 (08:34→16:59)
[2024-03-11] MEDS: ferrous gluconate 324 mg Tablet PO ×2 (08:34→16:59)
[2024-03-11] MEDS: lisinopril 10 mg Tablet PO (08:34)
[2024-03-11] MEDS: clopidogrel 75 mg Tablet PO (08:34)
[2024-03-11] MEDS: duloxetine 30 mg Capsule PO (08:34)
[2024-03-11] MEDS: insulin lispro 100 unit/1 mL SUBCUT ×4 (08:35→21:07)
[2024-03-11] MEDS: famotidine 20 mg Tablet PO ×2 (08:42→16:59)
[2024-03-11 12:46] LABS: Glucose Point of Care 189 mg/dL (70-110)
--- NOTE | 2024-03-11 12:48 | PM.PN ---
Subjective Subjective: No acute events overnight. Patient denies any nausea counting, headache. States pain is appropriate but sometimes when he is walking he feels as if something is pulling in his leg. Blood sugars are better controlled. Vitals/I&O/Wt Last Vital Signs Temp 97.7 F 03/11/24 08:00 Pulse 77 03/11/24 08:00 Resp 16 03/11/24 08:32 BP 128/85 03/11/24 08:00 Pulse Ox 98 03/11/24 08:32 O2 Del Method Room Air 03/11/24 08:00 O2 Flow Rate 2 03/08/24 11:07 03/10/24 03/11/24 03/11/24 22:59 06:59 14:59 Intake Total 290 / 820 50 / 870 50 / 50 Balance 290 / 820 50 / 870 50 / 50 Physical Exam Narrative: General: No acute distress, AO x3 HEENT: PERRLA, pupils bilaterally equal and reactive Chest: Normal vesicular breath sounds, no added sounds, equal good air entry bilaterally CVS: S1-S2 regular, no murmurs, no tachycardia, no gallops, no rubs Abdomen: Soft, nontender, no organomegaly, bowel sounds present Neuro: No focal deficits, no facial deformity, AO x3, power 5/5 in all limbs Data 03/09/24 04:28 03/09/24 04:28 A&P Assessment and plan (1) History of skin graft: Post skin graft done on 03/01. Appreciate surgical recommendations. Wound care as per surgical team for now. (2) Encounter for wound care: As per patient he underwent vascular graft exploration for graft infection from Staphylococcus 4 weeks ago at [facility]. Was on IV vancomycin till 02/21. Will request documents from outside hospital. Appreciate ESR, CRP. Blood cultures negative. CT of lower limb without contrast negative for any collection. (3) Arteriovenous graft infection: No current signs of infection. Blood cultures negative. Finished course of IV antibiotics with vancomycin 3 days prior to admission. Received vancomycin for overall 4 weeks. (4) Dehiscence of wound: (5) CAD (coronary artery disease): Denies any active chest pain. Appreciate A1c, lipid panel. Continue with home dose of Plavix, statin, Xarelto Qualifiers: Associated angina: with unstable angina Coronary Disease-Associated Artery/Lesion type: [place] artery [place] vs. transplanted heart: [place] heart Qualified Code(s): I25.110 - Atherosclerotic heart disease of [place] coronary artery with unstable angina pectoris (6) Peripheral vascular disease: Continue with Xarelto at 2.5 mg twice daily dose which seems to be in setting of prophylaxis for PAD (7) Suicidal ideation: Has been cleared from neuropsych team. Continue with Cymbalta 30 mg oral daily, nicotine patch, Seroquel 300 mg oral nightly (8) Social discord: Plan Hypertension: Goal blood pressure less than 140/90 mmHg. Continue with metoprolol succinate 25 mg oral daily. Holding off on home dose of hydrochlorothiazide and lisinopril for now. Last echocardiogram from July 2023 showed an EF of 45 to 50% with mild to moderate lateral wall hypokinesia, stage I diastolic dysfunction. Type 2 diabetes mellitus: Appreciate A1c. Continue with Lantus 10 units nightly, insulin sliding scale. Also started on home dose of metformin. For now we will continue. Carb consistent cardiac diet Xarelto will be sufficient for DVT prophylaxis Famotidine for PUD prophylaxis Plan for the day: Hemodynamically has remained stable. Pain is well-controlled. Blood sugar still mildly elevated. Increase glimepiride dose to 3 mg twice daily. Continue with Lantus 10 units at bedtime. Sliding scale as needed. Continue with low-dose sliding scale. Further modified to prevent hypoglycemia. Repeat labs in AM. Discharge plan: Plan to transfer to SNF once level 2 is achieved. Attestations Medical Necessity Statement*: Requires further hospitalization for postoperative care post skin graft in a patient with recent graft infection. Acute limb ischemia was initially admitted for suicidal ideation while safe discharge planning is sought Diagnoses History of skin graft Z94.5 Encounter for wound care Arteriovenous graft infection T82.7XXA Dehiscence of wound T81.30XA Coronary artery disease involving [place] coronary artery of [place] heart with unstable angina pectoris I25.110 Associated angina: with unstable angina Coronary Disease-Associated Artery/Lesion type: [place] artery [place] vs. transplanted heart: [place] heart Peripheral vascular disease I73.9 Suicidal ideation R45.851 Social discord Z65.8
[2024-03-11 16:18] LABS: Glucose Point of Care 195 mg/dL (70-110)
[2024-03-11] MEDS: glimepiride 2 mg Tablet 3 MG PO (16:59)
[2024-03-11 20:53] LABS: Glucose Point of Care 216 mg/dL (70-110)
[2024-03-11] MEDS: insulin glargine 100 units/1 mL 10 UNIT SUBCUT (21:07)
[2024-03-11] MEDS: atorvastatin 40 mg Tablet 80 MG PO (21:07)
[2024-03-12] VITALS (11 sets, daily range): BP systolic 108–135; BP diastolic 72–98; PULSE 61–72; RESP 16–19; TEMP 36.4–36.7; O2SAT 19–99
[2024-03-12] MEDS: oxyCODONE-APAP 10-325 mg Tablet 1 TAB PO ×3 (03:53→20:11)
[2024-03-12 05:41] LABS: Basophils # 0.1 10^3/uL (0.0-0.1); Basophils % 0.8 %; Eosinophils # 0.3 10^3/uL (0.0-0.8); Eosinophils % 3.2 %; Hematocrit 42.5 % (37-53); Lymphocytes # 3.2 10^3/uL (0.8-4.8); Lymphocytes % 36.1 %; Mean Corpuscular HGB Conc 32.9 g/dL (30-55); Mean Corpuscular Hemoglobin 28.3 pg (27-33); Mean Platelet Volume 8.6 fL (7.4-10.4); Monocytes # 0.8 10^3/uL (0.2-0.9); Monocytes % 9.3 %; Neutrophils # 4.46 10^3/uL (1.8-7.7); Neutrophils % 49.9 %; Nucleated Red Blood Cells % 0 %; Platelet Count 255 10^3/cmm (157-399); Red Blood Count 4.94 10^6/uL (3.85-5.65); White Blood Count 8.93 10^3/uL (3.29-11.43)
[2024-03-12] MEDS: glimepiride 2 mg Tablet 3 MG PO ×2 (06:02→17:24)
[2024-03-12] MEDS: piperacillin-tazobactam 3.375 GM in sodium chloride 0.9% (plus) 50 ML IV ×3 (06:03→21:32)
[2024-03-12 06:11] LABS: Alanine Aminotransferase 36 U/L (0-41); Albumin Level 3.9 g/dL (3.5-5.2); Alkaline Phosphatase 97 U/L (40-130); Anion Gap 17.2 (5-19); Aspartate Amino Transferase 19 U/L (0-40); Blood Urea Nitrogen 8 mg/dL (6-20); Calcium 9.1 mg/dL (8.5-10.5); Carbon Dioxide 23 mmol/L (22-29); Chloride 102 mmol/L (98-107); Creatinine Clr Calc Pharmacy 182.7994; Globulin 2.6 g/dL (1.3-4.6); Glomerular Filtration Rate 145.7 mL/min (90-130); Glucose 167 mg/dL (65-115); Osmolality Calculated 288 mOsm/kg (285-295); Potassium 4.2 mmol/L (3.5-5.1); Sodium 138 mmol/L (136-145); Total Bilirubin 0.3 mg/dL (0.15-1.2); Total Protein 6.5 g/dL (6.6-8.7)
[2024-03-12 06:32] LABS: Glucose Point of Care 164 mg/dL (70-110)
[2024-03-12] MEDS: lisinopril 10 mg Tablet PO (08:07)
[2024-03-12] MEDS: gabapentin 400 mg Capsule PO ×3 (08:09→20:10)
[2024-03-12] MEDS: oxyCODONE 20 mg ER (12 HR) Tablet PO ×2 (08:10→17:23)
[2024-03-12] MEDS: duloxetine 30 mg Capsule PO (08:10)
[2024-03-12] MEDS: famotidine 20 mg Tablet PO ×2 (08:11→17:24)
[2024-03-12] MEDS: rivaroxaban 10 mg Tablet 2.5 MG PO ×2 (08:11→17:24)
[2024-03-12] MEDS: ferrous gluconate 324 mg Tablet PO ×2 (08:12→17:23)
[2024-03-12] MEDS: metoprolol succinate ER (24 HR) 25 mg Tablet PO (08:12)
[2024-03-12] MEDS: clopidogrel 75 mg Tablet PO (08:12)
[2024-03-12] MEDS: metformin 500 mg Tablet PO (08:12)
[2024-03-12] MEDS: insulin lispro 100 unit/1 mL SUBCUT ×4 (08:18→21:31)
[2024-03-12 11:36] LABS: Glucose Point of Care 203 mg/dL (70-110)
--- NOTE | 2024-03-12 14:49 | P.PN_ITS ---
Subjective 2 Subjective: Status Quo. No new complaints. Hemodynamically stable. Blood sugars improving. Vitals/I&O/Wt Last Vital Signs Temp 97.7 F 03/12/24 11:49 Pulse 68 03/12/24 11:49 Resp 18 03/12/24 11:57 BP 119/78 03/12/24 11:49 Pulse Ox 99 03/12/24 11:49 O2 Del Method Room Air 03/12/24 11:49 O2 Flow Rate 2 03/08/24 11:07 03/11/24 03/12/24 03/12/24 22:59 06:59 14:59 Intake Total 290 / 1160 50 / 1210 530 / 530 Balance 290 / 1160 50 / 1210 530 / 530 Weight last 48 hrs Weight 108.664 kg Physical Exam 2 Narrative: General: No acute distress, AO x3 HEENT: PERRLA, pupils bilaterally equal and reactive Chest: Normal vesicular breath sounds, no added sounds, equal good air entry bilaterally CVS: S1-S2 regular, no murmurs, no tachycardia, no gallops, no rubs Abdomen: Soft, nontender, no organomegaly, bowel sounds present Neuro: No focal deficits, no facial deformity, AO x3, power 5/5 in all limbs Data 03/12/24 04:59 03/12/24 04:59 A&P Assessment and plan (1) History of skin graft: Post skin graft done on 03/01. Appreciate surgical recommendations. Wound care as per surgical team for now. (2) Encounter for wound care: As per patient he underwent vascular graft exploration for graft infection from Staphylococcus 4 weeks ago at [facility]. Was on IV vancomycin till 02/21. Will request documents from outside hospital. Appreciate ESR, CRP. Blood cultures negative. CT of lower limb without contrast negative for any collection. (3) Arteriovenous graft infection: No current signs of infection. Blood cultures negative. Finished course of IV antibiotics with vancomycin 3 days prior to admission. Received vancomycin for overall 4 weeks. (4) Dehiscence of wound: (5) CAD (coronary artery disease): Denies any active chest pain. Appreciate A1c, lipid panel. Continue with home dose of Plavix, statin, Xarelto Qualifiers: Associated angina: with unstable angina Coronary Disease-Associated Artery/Lesion type: [place] artery [place] vs. transplanted heart: [place] heart Qualified Code(s): I25.110 - Atherosclerotic heart disease of [place] coronary artery with unstable angina pectoris (6) Peripheral vascular disease: Continue with Xarelto at 2.5 mg twice daily dose which seems to be in setting of prophylaxis for PAD (7) Suicidal ideation: Has been cleared from neuropsych team. Continue with Cymbalta 30 mg oral daily, nicotine patch, Seroquel 300 mg oral nightly (8) Social discord: Plan Hypertension: Goal blood pressure less than 140/90 mmHg. Continue with metoprolol succinate 25 mg oral daily. Holding off on home dose of hydrochlorothiazide and lisinopril for now. Last echocardiogram from July 2023 showed an EF of 45 to 50% with mild to moderate lateral wall hypokinesia, stage I diastolic dysfunction. Type 2 diabetes mellitus: Appreciate A1c. Continue with Lantus 10 units nightly, insulin sliding scale. Also started on home dose of metformin. For now we will continue. Carb consistent cardiac diet Xarelto will be sufficient for DVT prophylaxis Famotidine for PUD prophylaxis Plan for the day: Xanax 1 mg 4 times daily renewed. Continue with Percocet 10 mg every 6 as needed, OxyContin 20 mg twice daily. Blood sugar stable. Continue with glimepiride 3 mg twice daily along with metformin 1000 mg twice daily. Continue with insulin sliding scale. Discharge plan: Plan to transfer to SNF once level 2 is achieved. Attestations 2 Medical Necessity Statement*: Requires further hospitalization while safe discharge planning is sought and patient was initially admitted for suicidal ideation who underwent skin graft venous graft infection post thrombectomy for ischemic limb Diagnoses History of skin graft Z94.5 Encounter for wound care Arteriovenous graft infection T82.7XXA Dehiscence of wound T81.30XA Coronary artery disease involving [place] coronary artery of [place] heart with unstable angina pectoris I25.110 Associated angina: with unstable angina Coronary Disease-Associated Artery/Lesion type: [place] artery [place] vs. transplanted heart: [place] heart Peripheral vascular disease I73.9 Suicidal ideation R45.851 Social discord Z65.8
[2024-03-12] MEDS: ALPRAZolam 0.5 mg Tablet 1 MG PO ×3 (15:45→20:10)
[2024-03-12 16:16] LABS: Glucose Point of Care 164 mg/dL (70-110)
[2024-03-12] MEDS: metformin 500 mg Tablet 1000 MG PO (17:23)
[2024-03-12] MEDS: atorvastatin 40 mg Tablet 80 MG PO (20:10)
[2024-03-12 20:58] LABS: Glucose Point of Care 176 mg/dL (70-110)
[2024-03-12] MEDS: insulin glargine 100 units/1 mL 10 UNIT SUBCUT (21:31)
[2024-03-13] VITALS (10 sets, daily range): BP systolic 110–124; BP diastolic 76–88; PULSE 64–76; RESP 16–20; TEMP 36.5–37; O2SAT 95–98
[2024-03-13] MEDS: oxyCODONE-APAP 10-325 mg Tablet 1 TAB PO ×3 (03:39→20:06)
[2024-03-13] MEDS: piperacillin-tazobactam 3.375 GM in sodium chloride 0.9% (plus) 50 ML IV ×3 (06:10→21:40)
[2024-03-13] MEDS: glimepiride 2 mg Tablet 3 MG PO ×2 (06:10→16:43)
[2024-03-13 06:42] LABS: Glucose Point of Care 240 mg/dL (70-110)
[2024-03-13] MEDS: clopidogrel 75 mg Tablet PO (09:55)
[2024-03-13] MEDS: metoprolol succinate ER (24 HR) 25 mg Tablet PO (09:55)
[2024-03-13] MEDS: ALPRAZolam 0.5 mg Tablet 1 MG PO ×4 (09:55→21:38)
[2024-03-13] MEDS: duloxetine 30 mg Capsule PO (09:55)
[2024-03-13] MEDS: ferrous gluconate 324 mg Tablet PO ×2 (09:55→16:44)
[2024-03-13] MEDS: famotidine 20 mg Tablet PO ×2 (09:55→16:43)
[2024-03-13] MEDS: gabapentin 400 mg Capsule PO ×3 (09:55→21:38)
[2024-03-13] MEDS: rivaroxaban 10 mg Tablet 2.5 MG PO ×2 (09:55→16:44)
[2024-03-13] MEDS: metformin 500 mg Tablet 1000 MG PO ×2 (09:55→16:42)
[2024-03-13] MEDS: lisinopril 10 mg Tablet PO (09:55)
[2024-03-13] MEDS: insulin lispro 100 unit/1 mL SUBCUT ×3 (09:56→21:41)
[2024-03-13] MEDS: oxyCODONE 20 mg ER (12 HR) Tablet PO ×2 (09:56→16:44)
[2024-03-13 10:39] LABS: Glucose Point of Care 174 mg/dL (70-110)
--- NOTE | 2024-03-13 12:53 | P.PN_ITS ---
Subjective 2 Subjective: seen this am no aeo Vitals/I&O/Wt Last Vital Signs Temp 98.2 F 03/13/24 11:34 Pulse 74 03/13/24 11:34 Resp 17 03/13/24 12:22 BP 124/88 03/13/24 11:34 Pulse Ox 98 03/13/24 12:22 O2 Del Method Room Air 03/13/24 11:34 O2 Flow Rate 2 03/08/24 11:07 03/12/24 03/13/24 03/13/24 22:59 06:59 14:59 Intake Total 1210 / 1740 50 / 1790 290 / 290 Balance 1210 / 1740 50 / 1790 290 / 290 Weight last 48 hrs Weight 108.664 kg Physical Exam 2 Narrative: resting comfortably in bed no distress lungs cta Data 03/12/24 04:59 03/12/24 04:59 A&P Assessment and plan (1) History of skin graft: Post skin graft done on 03/01. Appreciate surgical recommendations. Wound care as per surgical team for now. (2) Encounter for wound care: As per patient he underwent vascular graft exploration for graft infection from Staphylococcus 4 weeks ago at [facility]. Was on IV vancomycin till 02/21. Will request documents from outside hospital. Appreciate ESR, CRP. Blood cultures negative. CT of lower limb without contrast negative for any collection. (3) Arteriovenous graft infection: No current signs of infection. Blood cultures negative. Finished course of IV antibiotics with vancomycin 3 days prior to admission. Received vancomycin for overall 4 weeks. (4) Dehiscence of wound: (5) CAD (coronary artery disease): Denies any active chest pain. Appreciate A1c, lipid panel. Continue with home dose of Plavix, statin, Xarelto Qualifiers: Associated angina: with unstable angina Coronary Disease-Associated Artery/Lesion type: [place] artery [place] vs. transplanted heart: [place] heart Qualified Code(s): I25.110 - Atherosclerotic heart disease of [place] coronary artery with unstable angina pectoris (6) Peripheral vascular disease: Continue with Xarelto at 2.5 mg twice daily dose which seems to be in setting of prophylaxis for PAD (7) Suicidal ideation: Has been cleared from neuropsych team. Continue with Cymbalta 30 mg oral daily, nicotine patch, Seroquel 300 mg oral nightly (8) Social discord: Plan Hypertension: Goal blood pressure less than 140/90 mmHg. Continue with metoprolol succinate 25 mg oral daily. Holding off on home dose of hydrochlorothiazide and lisinopril for now. Last echocardiogram from July 2023 showed an EF of 45 to 50% with mild to moderate lateral wall hypokinesia, stage I diastolic dysfunction. Type 2 diabetes mellitus: Appreciate A1c. Continue with Lantus 10 units nightly, insulin sliding scale. Also started on home dose of metformin. For now we will continue. Carb consistent cardiac diet Xarelto will be sufficient for DVT prophylaxis Famotidine for PUD prophylaxis Plan for the day: 03/13 Xanax 1 mg 4 times daily renewed. Continue with Percocet 10 mg every 6 as needed, OxyContin 20 mg twice daily. Blood sugar stable. Continue with glimepiride 3 mg twice daily along with metformin 1000 mg twice daily. Continue with insulin sliding scale. Discharge plan: Plan to transfer to SNF once level 2 is achieved. Attestations 2 Medical Necessity Statement*: Requires further hospitalization while safe discharge planning is sought and patient was initially admitted for suicidal ideation who underwent skin graft venous graft infection post thrombectomy for ischemic limb Diagnoses History of skin graft Z94.5 Encounter for wound care Arteriovenous graft infection T82.7XXA Dehiscence of wound T81.30XA Coronary artery disease involving [place] coronary artery of [place] heart with unstable angina pectoris I25.110 Associated angina: with unstable angina Coronary Disease-Associated Artery/Lesion type: [place] artery [place] vs. transplanted heart: [place] heart Peripheral vascular disease I73.9 Suicidal ideation R45.851 Social discord Z65.8
[2024-03-13] MEDS: nicotine 21 mg Patch 1 PATCH TRANSDERMA (15:22)
[2024-03-13 16:47] LABS: Glucose Point of Care 145 mg/dL (70-110)
[2024-03-13 20:47] LABS: Glucose Point of Care 188 mg/dL (70-110)
[2024-03-13] MEDS: atorvastatin 40 mg Tablet 80 MG PO (21:38)
[2024-03-13] MEDS: insulin glargine 100 units/1 mL 10 UNIT SUBCUT (21:40)
[2024-03-14] VITALS (10 sets, daily range): BP systolic 110–119; BP diastolic 74–82; PULSE 68–78; RESP 16–20; TEMP 36.4–37; O2SAT 96–99
[2024-03-14] MEDS: oxyCODONE-APAP 10-325 mg Tablet 1 TAB PO ×3 (01:53→19:39)
[2024-03-14] MEDS: glimepiride 2 mg Tablet 3 MG PO ×2 (06:02→16:48)
[2024-03-14] MEDS: piperacillin-tazobactam 3.375 GM in sodium chloride 0.9% (plus) 50 ML IV (06:02)
[2024-03-14 06:20] LABS: Glucose Point of Care 172 mg/dL (70-110)
[2024-03-14] MEDS: gabapentin 400 mg Capsule PO ×3 (09:17→20:48)
[2024-03-14] MEDS: ALPRAZolam 0.5 mg Tablet 1 MG PO ×4 (09:17→20:47)
[2024-03-14] MEDS: rivaroxaban 10 mg Tablet 2.5 MG PO ×2 (09:18→16:48)
[2024-03-14] MEDS: insulin lispro 100 unit/1 mL SUBCUT ×3 (09:18→20:48)
[2024-03-14] MEDS: lisinopril 10 mg Tablet PO (09:18)
[2024-03-14] MEDS: metformin 500 mg Tablet 1000 MG PO ×2 (09:18→16:47)
[2024-03-14] MEDS: ferrous gluconate 324 mg Tablet PO ×2 (09:18→16:47)
[2024-03-14] MEDS: oxyCODONE 20 mg ER (12 HR) Tablet PO ×2 (09:18→16:48)
[2024-03-14] MEDS: metoprolol succinate ER (24 HR) 25 mg Tablet PO (09:18)
[2024-03-14] MEDS: duloxetine 30 mg Capsule PO (09:18)
[2024-03-14] MEDS: famotidine 20 mg Tablet PO ×2 (09:18→16:47)
[2024-03-14] MEDS: clopidogrel 75 mg Tablet PO (09:18)
[2024-03-14 10:43] LABS: Glucose Point of Care 211 mg/dL (70-110)
--- NOTE | 2024-03-14 14:52 | PM.PN ---
Subjective Subjective: seen today requesting to go outside Vitals/I&O/Wt Last Vital Signs Temp 98.1 F 03/14/24 11:21 Pulse 76 03/14/24 11:21 Resp 17 03/14/24 12:43 BP 110/74 03/14/24 11:21 Pulse Ox 97 03/14/24 12:43 O2 Del Method Room Air 03/14/24 11:21 O2 Flow Rate 2 03/08/24 11:07 03/13/24 03/14/24 03/14/24 22:59 06:59 14:59 Intake Total 650 / 940 50 / 990 290 / 290 Balance 650 / 940 50 / 990 290 / 290 Weight last 48 hrs Weight 109.344 kg Physical Exam Narrative: resting comfortably in bed no distress lungs cta Data 03/12/24 04:59 03/12/24 04:59 A&P Assessment and plan (1) History of skin graft: Post skin graft done on 03/01. Appreciate surgical recommendations. Wound care as per surgical team for now. (2) Encounter for wound care: As per patient he underwent vascular graft exploration for graft infection from Staphylococcus 4 weeks ago at [facility]. Was on IV vancomycin till 02/21. Will request documents from outside hospital. Appreciate ESR, CRP. Blood cultures negative. CT of lower limb without contrast negative for any collection. (3) Arteriovenous graft infection: No current signs of infection. Blood cultures negative. Finished course of IV antibiotics with vancomycin 3 days prior to admission. Received vancomycin for overall 4 weeks. (4) Dehiscence of wound: (5) CAD (coronary artery disease): Denies any active chest pain. Appreciate A1c, lipid panel. Continue with home dose of Plavix, statin, Xarelto Qualifiers: Associated angina: with unstable angina Coronary Disease-Associated Artery/Lesion type: [place] artery [place] vs. transplanted heart: [place] heart Qualified Code(s): I25.110 - Atherosclerotic heart disease of [place] coronary artery with unstable angina pectoris (6) Peripheral vascular disease: Continue with Xarelto at 2.5 mg twice daily dose which seems to be in setting of prophylaxis for PAD (7) Suicidal ideation: Has been cleared from neuropsych team. Continue with Cymbalta 30 mg oral daily, nicotine patch, Seroquel 300 mg oral nightly (8) Social discord: Plan Hypertension: Goal blood pressure less than 140/90 mmHg. Continue with metoprolol succinate 25 mg oral daily. Holding off on home dose of hydrochlorothiazide and lisinopril for now. Last echocardiogram from July 2023 showed an EF of 45 to 50% with mild to moderate lateral wall hypokinesia, stage I diastolic dysfunction. Type 2 diabetes mellitus: Appreciate A1c. Continue with Lantus 10 units nightly, insulin sliding scale. Also started on home dose of metformin. For now we will continue. Carb consistent cardiac diet Xarelto will be sufficient for DVT prophylaxis Famotidine for PUD prophylaxis Plan for the day: 03/14 Xanax 1 mg 4 times daily renewed. Continue with Percocet 10 mg every 6 as needed, OxyContin 20 mg twice daily. Blood sugar stable. Continue with glimepiride 3 mg twice daily along with metformin 1000 mg twice daily. Continue with insulin sliding scale. Discharge plan: Plan to transfer to SNF once level 2 is achieved. Attestations Medical Necessity Statement*: Requires further hospitalization while safe discharge planning is sought and patient was initially admitted for suicidal ideation who underwent skin graft venous graft infection post thrombectomy for ischemic limb Diagnoses History of skin graft Z94.5 Encounter for wound care Arteriovenous graft infection T82.7XXA Dehiscence of wound T81.30XA Coronary artery disease involving [place] coronary artery of [place] heart with unstable angina pectoris I25.110 Associated angina: with unstable angina Coronary Disease-Associated Artery/Lesion type: [place] artery [place] vs. transplanted heart: [place] heart Peripheral vascular disease I73.9 Suicidal ideation R45.851 Social discord Z65.8
[2024-03-14 16:44] LABS: Glucose Point of Care 171 mg/dL (70-110)
[2024-03-14 20:39] LABS: Glucose Point of Care 154 mg/dL (70-110)
[2024-03-14] MEDS: atorvastatin 40 mg Tablet 80 MG PO (20:47)
[2024-03-14] MEDS: insulin glargine 100 units/1 mL 10 UNIT SUBCUT (20:48)
[2024-03-15] VITALS (10 sets, daily range): BP systolic 110–134; BP diastolic 74–89; PULSE 69–82; RESP 15–18; TEMP 36.3–37.1; O2SAT 96–99
[2024-03-15] MEDS: glimepiride 2 mg Tablet 3 MG PO ×2 (06:19→18:19)
[2024-03-15] MEDS: oxyCODONE-APAP 10-325 mg Tablet 1 TAB PO ×3 (06:20→19:57)
[2024-03-15 06:24] LABS: Glucose Point of Care 157 mg/dL (70-110)
[2024-03-15] MEDS: metformin 500 mg Tablet 1000 MG PO ×2 (08:24→18:19)
[2024-03-15] MEDS: rivaroxaban 10 mg Tablet 2.5 MG PO ×2 (08:24→18:19)
[2024-03-15] MEDS: ALPRAZolam 0.5 mg Tablet 1 MG PO ×2 (08:24→19:59)
[2024-03-15] MEDS: duloxetine 30 mg Capsule PO (08:25)
[2024-03-15] MEDS: lisinopril 10 mg Tablet PO (08:25)
[2024-03-15] MEDS: insulin lispro 100 unit/1 mL SUBCUT ×4 (08:25→21:10)
[2024-03-15] MEDS: metoprolol succinate ER (24 HR) 25 mg Tablet PO (08:25)
[2024-03-15] MEDS: ferrous gluconate 324 mg Tablet PO ×2 (08:25→18:19)
[2024-03-15] MEDS: oxyCODONE 20 mg ER (12 HR) Tablet PO ×2 (08:25→18:20)
[2024-03-15] MEDS: clopidogrel 75 mg Tablet PO (08:25)
[2024-03-15] MEDS: famotidine 20 mg Tablet PO ×2 (08:25→18:19)
[2024-03-15] MEDS: gabapentin 400 mg Capsule PO ×3 (08:25→19:59)
[2024-03-15] MEDS: nicotine 21 mg Patch 1 PATCH TRANSDERMA (11:23)
[2024-03-15 11:52] LABS: Glucose Point of Care 168 mg/dL (70-110)
--- NOTE | 2024-03-15 11:53 | PM.PN ---
Subjective Subjective: Seen today. Patient was allowed to go outside yesterday however he ended up smoking which is against hospital policy. Discussed this with him. He is also been disrespectful to nursing staff this morning. States he is having a lot of anxiety and is requesting for anxiety medication and a nicotine patch. He is repeatedly requesting to smoke. Vitals/I&O/Wt Last Vital Signs Temp 98 F 03/15/24 08:29 Pulse 69 03/15/24 08:29 Resp 17 03/15/24 08:29 BP 119/79 03/15/24 08:29 Pulse Ox 99 03/15/24 08:29 O2 Del Method Room Air 03/15/24 08:29 O2 Flow Rate 2 03/08/24 11:07 03/14/24 03/15/24 03/15/24 22:59 06:59 14:59 Intake Total 120 / 410 360 / 360 Balance 120 / 410 360 / 360 Weight last 48 hrs Weight 108.04 kg Weight 109.344 kg Physical Exam Narrative: resting comfortably in bed no distress lungs cta Data 03/12/24 04:59 03/12/24 04:59 A&P Assessment and plan (1) History of skin graft: Post skin graft done on 03/01. Appreciate surgical recommendations. Wound care as per surgical team for now. (2) Encounter for wound care: As per patient he underwent vascular graft exploration for graft infection from Staphylococcus 4 weeks ago at [facility]. Was on IV vancomycin till 02/21. Will request documents from outside hospital. Appreciate ESR, CRP. Blood cultures negative. CT of lower limb without contrast negative for any collection. (3) Arteriovenous graft infection: No current signs of infection. Blood cultures negative. Finished course of IV antibiotics with vancomycin 3 days prior to admission. Received vancomycin for overall 4 weeks. (4) Dehiscence of wound: (5) CAD (coronary artery disease): Denies any active chest pain. Appreciate A1c, lipid panel. Continue with home dose of Plavix, statin, Xarelto Qualifiers: Associated angina: with unstable angina Coronary Disease-Associated Artery/Lesion type: [place] artery [place] vs. transplanted heart: [place] heart Qualified Code(s): I25.110 - Atherosclerotic heart disease of [place] coronary artery with unstable angina pectoris (6) Peripheral vascular disease: Continue with Xarelto at 2.5 mg twice daily dose which seems to be in setting of prophylaxis for PAD (7) Suicidal ideation: Has been cleared from neuropsych team. Continue with Cymbalta 30 mg oral daily, nicotine patch, Seroquel 300 mg oral nightly (8) Social discord: Plan Hypertension: Goal blood pressure less than 140/90 mmHg. Continue with metoprolol succinate 25 mg oral daily. Holding off on home dose of hydrochlorothiazide and lisinopril for now. Last echocardiogram from July 2023 showed an EF of 45 to 50% with mild to moderate lateral wall hypokinesia, stage I diastolic dysfunction. Type 2 diabetes mellitus: Appreciate A1c. Continue with Lantus 10 units nightly, insulin sliding scale. Also started on home dose of metformin. For now we will continue. Carb consistent cardiac diet Xarelto will be sufficient for DVT prophylaxis Famotidine for PUD prophylaxis Plan for the day: 03/15 Xanax 1 mg 4 times daily renewed. Continue with Percocet 10 mg every 6 as needed, OxyContin 20 mg twice daily. Blood sugar stable. Continue with glimepiride 3 mg twice daily along with metformin 1000 mg twice daily. Continue with insulin sliding scale. Discharge plan: Plan to transfer to SNF once level 2 is achieved. Attestations Medical Necessity Statement*: Requires further hospitalization while safe discharge planning is sought and patient was initially admitted for suicidal ideation who underwent skin graft venous graft infection post thrombectomy for ischemic limb Diagnoses History of skin graft Z94.5 Encounter for wound care Arteriovenous graft infection T82.7XXA Dehiscence of wound T81.30XA Coronary artery disease involving [place] coronary artery of [place] heart with unstable angina pectoris I25.110 Associated angina: with unstable angina Coronary Disease-Associated Artery/Lesion type: [place] artery [place] vs. transplanted heart: [place] heart Peripheral vascular disease I73.9 Suicidal ideation R45.851 Social discord Z65.8
[2024-03-15 16:56] LABS: Glucose Point of Care 202 mg/dL (70-110)
[2024-03-15] MEDS: atorvastatin 40 mg Tablet 80 MG PO (19:59)
[2024-03-15] MEDS: insulin glargine 100 units/1 mL 10 UNIT SUBCUT (21:10)
[2024-03-15 21:18] LABS: Glucose Point of Care 173 mg/dL (70-110)
[2024-03-16] VITALS (9 sets, daily range): BP systolic 113–144; BP diastolic 62–84; PULSE 63–79; RESP 15–20; TEMP 36.6–37.2; O2SAT 94–99
[2024-03-16] MEDS: glimepiride 2 mg Tablet 3 MG PO ×2 (06:16→17:48)
[2024-03-16] MEDS: oxyCODONE-APAP 10-325 mg Tablet 1 TAB PO ×3 (06:19→21:35)
[2024-03-16 06:33] LABS: Glucose Point of Care 162 mg/dL (70-110)
[2024-03-16] MEDS: duloxetine 30 mg Capsule PO (08:29)
[2024-03-16] MEDS: clopidogrel 75 mg Tablet PO (08:29)
[2024-03-16] MEDS: famotidine 20 mg Tablet PO ×2 (08:29→17:48)
[2024-03-16] MEDS: lisinopril 10 mg Tablet PO (08:29)
[2024-03-16] MEDS: metformin 500 mg Tablet 1000 MG PO ×2 (08:30→17:48)
[2024-03-16] MEDS: ferrous gluconate 324 mg Tablet PO ×2 (08:30→17:49)
[2024-03-16] MEDS: rivaroxaban 10 mg Tablet 2.5 MG PO ×2 (08:30→17:51)
[2024-03-16] MEDS: metoprolol succinate ER (24 HR) 25 mg Tablet PO (08:30)
[2024-03-16] MEDS: ALPRAZolam 0.5 mg Tablet 1 MG PO ×4 (08:30→21:34)
[2024-03-16] MEDS: insulin lispro 100 unit/1 mL SUBCUT ×3 (08:30→21:42)
[2024-03-16] MEDS: oxyCODONE 20 mg ER (12 HR) Tablet PO ×2 (08:30→17:49)
[2024-03-16] MEDS: gabapentin 400 mg Capsule PO ×3 (08:31→21:34)
[2024-03-16] MEDS: nicotine 21 mg Patch 1 PATCH TRANSDERMA (08:31)
[2024-03-16 11:50] LABS: Glucose Point of Care 148 mg/dL (70-110)
--- NOTE | 2024-03-16 12:22 | PM.PN ---
Subjective Subjective: seen today awaiting insurance auth Vitals/I&O/Wt Last Vital Signs Temp 97.8 F 03/16/24 12:07 Pulse 63 03/16/24 12:07 Resp 18 03/16/24 12:07 BP 127/84 03/16/24 12:07 Pulse Ox 99 03/16/24 12:07 O2 Del Method Room Air 03/16/24 12:07 O2 Flow Rate 2 03/08/24 11:07 03/15/24 03/16/24 03/16/24 22:59 06:59 14:59 Intake Total 2180 / 2540 1050 / 3590 480 / 480 Balance 2180 / 2540 1050 / 3590 480 / 480 Weight last 48 hrs Weight 108.55 kg Weight 108.04 kg Physical Exam Narrative: resting comfortably in bed no distress lungs cta Data 03/12/24 04:59 03/12/24 04:59 A&P Assessment and plan (1) History of skin graft: Post skin graft done on 03/01. Appreciate surgical recommendations. Wound care as per surgical team for now. (2) Encounter for wound care: As per patient he underwent vascular graft exploration for graft infection from Staphylococcus 4 weeks ago at [facility]. Was on IV vancomycin till 02/21. Will request documents from outside hospital. Appreciate ESR, CRP. Blood cultures negative. CT of lower limb without contrast negative for any collection. (3) Arteriovenous graft infection: No current signs of infection. Blood cultures negative. Finished course of IV antibiotics with vancomycin 3 days prior to admission. Received vancomycin for overall 4 weeks. (4) Dehiscence of wound: (5) CAD (coronary artery disease): Denies any active chest pain. Appreciate A1c, lipid panel. Continue with home dose of Plavix, statin, Xarelto Qualifiers: Associated angina: with unstable angina Coronary Disease-Associated Artery/Lesion type: [place] artery [place] vs. transplanted heart: [place] heart Qualified Code(s): I25.110 - Atherosclerotic heart disease of [place] coronary artery with unstable angina pectoris (6) Peripheral vascular disease: Continue with Xarelto at 2.5 mg twice daily dose which seems to be in setting of prophylaxis for PAD (7) Suicidal ideation: Has been cleared from neuropsych team. Continue with Cymbalta 30 mg oral daily, nicotine patch, Seroquel 300 mg oral nightly (8) Social discord: Plan Hypertension: Goal blood pressure less than 140/90 mmHg. Continue with metoprolol succinate 25 mg oral daily. Holding off on home dose of hydrochlorothiazide and lisinopril for now. Last echocardiogram from July 2023 showed an EF of 45 to 50% with mild to moderate lateral wall hypokinesia, stage I diastolic dysfunction. Type 2 diabetes mellitus: Appreciate A1c. Continue with Lantus 10 units nightly, insulin sliding scale. Also started on home dose of metformin. For now we will continue. Carb consistent cardiac diet Xarelto will be sufficient for DVT prophylaxis Famotidine for PUD prophylaxis Plan for the day: 03/15 Xanax 1 mg 4 times daily renewed. Continue with Percocet 10 mg every 6 as needed, OxyContin 20 mg twice daily. Blood sugar stable. Continue with glimepiride 3 mg twice daily along with metformin 1000 mg twice daily. Continue with insulin sliding scale. Discharge plan: Plan to transfer to SNF once level 2 is achieved. Attestations Medical Necessity Statement*: Requires further hospitalization while safe discharge planning is sought and patient was initially admitted for suicidal ideation who underwent skin graft venous graft infection post thrombectomy for ischemic limb Coding Level of Care Code 87357 Diagnoses History of skin graft Z94.5 Encounter for wound care Arteriovenous graft infection T82.7XXA Dehiscence of wound T81.30XA Coronary artery disease involving [place] coronary artery of [place] heart with unstable angina pectoris I25.110 Associated angina: with unstable angina Coronary Disease-Associated Artery/Lesion type: [place] artery [place] vs. transplanted heart: [place] heart Peripheral vascular disease I73.9 Suicidal ideation R45.851 Social discord Z65.8
[2024-03-16 16:26] LABS: Glucose Point of Care 117 mg/dL (70-110)
[2024-03-16 21:12] LABS: Glucose Point of Care 185 mg/dL (70-110)
[2024-03-16] MEDS: atorvastatin 40 mg Tablet 80 MG PO (21:35)
[2024-03-16] MEDS: insulin glargine 100 units/1 mL 10 UNIT SUBCUT (21:42)
[2024-03-17] VITALS (7 sets, daily range): BP systolic 108–126; BP diastolic 71–85; PULSE 70–79; RESP 14–20; TEMP 36.6–37.2; O2SAT 94–97
[2024-03-17] MEDS: glimepiride 2 mg Tablet 3 MG PO (06:17)
[2024-03-17] MEDS: oxyCODONE-APAP 10-325 mg Tablet 1 TAB PO ×2 (06:17→12:47)
[2024-03-17 06:27] LABS: Glucose Point of Care 135 mg/dL (70-110)
--- NOTE | 2024-03-17 08:53 | P.DS_ITS ---
Discharge Providers Date of Admission: 02/25/24 21:36 Date of Discharge: March 17, 2024 Attending Provider at Admission: Gigi Wagner MD Attending Provider at Discharge: Keny Andrews MD Primary Care Provider: Nilesh Hutchinson MD Diagnoses at Discharge Discharge Diagnosis (1) History of skin graft: Status: Acute Permanent problem details: Split thickness skin graft of left lower extremity?03/01/2024 (2) Encounter for wound care: Status: Acute (3) Arteriovenous graft infection: Status: Acute (4) Dehiscence of wound: Status: Inactive (5) CAD (coronary artery disease): Status: Acute Qualifiers: Associated angina: with unstable angina Coronary Disease-Associated Artery/Lesion type: [place] artery [place] vs. transplanted heart: [place] heart Qualified Code(s): I25.110 - Atherosclerotic heart disease of [place] coronary artery with unstable angina pectoris Permanent problem details: History of AR, ~2017, now with panic attacks with chest pain, s/p stents x2 (6) Peripheral vascular disease: Status: Acute Permanent problem details: PAD s/p LLE angio, s/p PCI, popiteal bypass 11/27/23, admit 12/08/23 & 02/15/24 lysis catheter placement 12/09 & surgery 12/10 leg infection, [facility], (7) Suicidal ideation: Status: Acute (8) Social discord: Status: Acute Reason for Visit Reason for Visit: SI Hospital Course Hospital Course Was admitted to psychiatry for suicidal ideation and stayed in the hospital for about 21 days until placement was obtained. He underwent graft exploration for graft infection from Staphylococcus 4 weeks prior to admission and was on IV vancomycin till 02/21. Patient underwent wound graft here via general surgery and was nonweightbearing for the first a week. Eventually he was cleared for activity restrictions. Patient lives in a shed on safe unhygienic living cond [facility] and there was a high risk of his wound getting infected therefore placement was recommended. Ultimately he was cleared by general surgery to go home however patient elected to go to nursing facility. Discussed with psychiatry. Patient was sent home on Xanax 1 mg 4 times a day, Percocet, OxyContin twice daily. Patient was placed on glimepiride 2 mg twice a day along with metformin at dis charge. Patient did not want to take insulin at discharge. Psychiatry has recommended for patient to go on methadone after discharge. Physical Exam Narrative: resting comfortably in bed no distress lungs cta Abdomen soft nontender Discharge Data Studies Completed and Pending Completed Studies During Hospitalization Category Date Time Status CT lower leg LT wo con* [id number] Routine Cat Scan 02/26/24 17:24 Completed Radiology Impressions Lower Extremity CT 02/26/24 17:24 IMPRESSION: Since prior CT exam in November 2023, the patient has had surgery with placement of a distal femoral artery to distal popliteal artery bypass graft. No circumscribed fluid collection indicative of abscess is seen. There are residual postoperative soft tissue changes at the operative site, nonspecific. Please correlate with clinical exam to determine presence or absence of local infection at the operative site versus sterile postop changes. Laboratory Results WBC 8.93 10^3/uL (3.29-11.43) 03/12/24 04:59 RBC 4.94 10^6/uL (3.85-5.65) 03/12/24 04:59 Hgb 14.00 g/dL (11.27-16.99) 03/12/24 04:59 Hct 42.5 % (37-53) 03/12/24 04:59 MCV 86.0 fl (82-101) 03/12/24 04:59 MCH 28.3 pg (27-33) 03/12/24 04:59 MCHC 32.9 g/dL (30-55) 03/12/24 04:59 RDW 14.0 % (12.1-15.1) 03/12/24 04:59 Plt Count 255 10^3/cmm (157-399) 03/12/24 04:59 MPV 8.6 fL (7.4-10.4) 03/12/24 04:59 Neut % (Auto) 49.9 % 03/12/24 04:59 Lymph % (Auto) 36.1 % 03/12/24 04:59 [place] % (Auto) 9.3 % 03/12/24 04:59 Eos % (Auto) 3.2 % 03/12/24 04:59 Baso % (Auto) 0.8 % 03/12/24 04:59 Neut # (Auto) 4.46 10^3/uL (1.8-7.7) 03/12/24 04:59 Lymph # (Auto) 3.2 10^3/uL (0.8-4.8) 03/12/24 04:59 [place] # (Auto) 0.8 10^3/uL (0.2-0.9) 03/12/24 04:59 Eos # (Auto) 0.3 10^3/uL (0.0-0.8) 03/12/24 04:59 Baso # (Auto) 0.1 10^3/uL (0.0-0.1) 03/12/24 04:59 Nucleated RBC % (auto) 0 % 03/12/24 04:59 Nucleated RBCs # 0.0 /100WBC 03/12/24 04:59 ESR 31 mm/hr (0-10) H 02/26/24 18:01 Sodium 138 mmol/L (136-145) 03/12/24 04:59 Potassium 4.2 mmol/L (3.5-5.1) 03/12/24 04:59 Chloride 102 mmol/L (98-107) 03/12/24 04:59 Carbon Dioxide 23 mmol/L (22-29) 03/12/24 04:59 Anion Gap 17.2 (5-19) 03/12/24 04:59 BUN 8 mg/dL (6-20) 03/12/24 04:59 Creatinine 0.6 mg/dL (0.7-1.2) L 03/12/24 04:59 GFR Calculation 145.7 mL/min (90-130) H 03/12/24 04:59 Glucose 167 mg/dL (65-115) H 03/12/24 04:59 POC Glucose 135 mg/dL (70-110) H 03/17/24 06:20 Estimat Average Glucose 180 03/04/24 05:45 Hemoglobin A1c 7.9 % (4.0-6.0) H 03/04/24 05:45 Calculated Osmolality 288 mOsm/kg (285-295) 03/12/24 04:59 Calcium 9.1 mg/dL (8.5-10.5) 03/12/24 04:59 Magnesium 1.9 mg/dL (1.7-2.3) 03/06/24 04:17 Iron 27 ug/dL (59-158) L 02/26/24 18:01 TIBC 309 mcg/dl 02/26/24 18:01 % Saturation 8.7 % (20-50) L 02/26/24 18:01 Unsat Iron Binding 282 ug/dL (112-347) 02/26/24 18:01 Total Bilirubin 0.3 mg/dL (0.15-1.2) 03/12/24 04:59 AST 19 U/L (0-40) 03/12/24 04:59 ALT 36 U/L (0-41) 03/12/24 04:59 Alkaline Phosphatase 97 U/L (40-130) 03/12/24 04:59 Troponin T Baseline 7 ng/L (0-15) 02/26/24 23:42 Troponin T 120 Minute 6.26 ng/L (0-15) 02/27/24 01:51 Delta Troponin T -0.74 ABS# (0-10) L 02/27/24 01:51 Troponin T Hi Sens 6Hr 9.04 ng/L (0-15) 02/27/24 06:08 Troponin T Hi Sens 6Hr Delta 2.04 ng/L (0-12) 02/27/24 06:08 C-Reactive Protein 3.0 mg/L (0.0-4.9) 02/26/24 18:01 Total Protein 6.5 g/dL (6.6-8.7) L 03/12/24 04:59 Albumin 3.9 g/dL (3.5-5.2) 03/12/24 04:59 Globulin 2.6 g/dL (1.3-4.6) 03/12/24 04:59 Triglycerides 156 mg/dL (0-150) H 02/27/24 06:08 Cholesterol 122 mg/dL (0-200) 02/27/24 06:08 LDL Cholesterol, Calc 60 mg/dL (50-129) 02/27/24 06:08 Total VLDL Cholesterol 31 mg/dL (0-30) H 02/27/24 06:08 HDL Cholesterol 31 mg/dL (60-100) L 02/27/24 06:08 Cholesterol/HDL Ratio 3.94 mg/dL (1.0-5.00) 02/27/24 06:08 Vitamin B12 586 pg/mL (232-1245) 02/26/24 18:01 Folate 10.6 ng/mL (4.5-32.2) 02/27/24 06:08 Procalcitonin 0.05 ng/mL (0-0.5) 02/26/24 18:01 TSH 0.32 uIU/mL (0.27-4.20) 02/26/24 18:01 Urine Color Yellow (Yellow) 02/25/24 19:45 Urine Appearance Clear (CLEAR) 02/25/24 19:45 Urine pH 7 (5-7) 02/25/24 19:45 Ur Specific [place] 1.010 (1.005-1.030) 02/25/24 19:45 Urine Protein Neg (Negative) 02/25/24 19:45 Urine Glucose (UA) 4+ (Normal) H 02/25/24 19:45 Urine Ketones Negative (Negative) 02/25/24 19:45 Urine Blood Neg (Negative) 02/25/24 19:45 Urine Nitrate Negative (Negative) 02/25/24 19:45 Urine Bilirubin Neg (Negative) 02/25/24 19:45 Urine Urobilinogen Neg mg/dL (Negative) 02/25/24 19:45 Ur Leukocyte Esterase Negative (Negative) 02/25/24 19:45 Salicylates < 0.3 mg/dL (3-10) L 02/25/24 18:11 Urine Opiates Screen Positive ng/mL (Negative) H 02/25/24 19:45 Acetaminophen < 5.0 ug/mL (10-30) L 02/25/24 18:11 Ur Barbiturates Screen Negative ng/mL (Negative) 02/25/24 19:45 Ur Phencyclidine Scrn Negative ng/mL (Negative) 02/25/24 19:45 Ur Amphetamines Screen Negative ng/mL (Negative) 02/25/24 19:45 U Benzodiazepines Scrn Positive ng/mL (Negative) H 02/25/24 19:45 Urine Cocaine Screen Negative ng/mL (Negative) 02/25/24 19:45 U Marijuana (THC) Screen Positive ng/mL (Negative) H 02/25/24 19:45 Ethyl Alcohol < 10 mg/dL (0-10) 02/25/24 18:11 Vitals Last Vital Signs Temp 97.8 F 03/17/24 07:50 Pulse 78 03/17/24 07:50 Resp 16 03/17/24 07:50 BP 126/80 03/17/24 07:50 Pulse Ox 94 03/17/24 07:50 O2 Del Method Room Air 03/17/24 07:50 O2 Flow Rate 2 03/08/24 11:07 Discharge Plan Discharge Patient Disposition: Xfer SNF Condition: Stable Prescriptions: New Januvia 100 mg Tablet 100 mg PO DAILY Qty: 30 0RF lisinopril 10 mg tablet 10 mg PO DAILY Qty: 30 0RF glimepiride 2 mg Tablet 3 mg PO BIDAC Qty: 90 0RF metformin 500 mg Tablet 1,000 mg PO BIDWM Qty: 120 0RF famotidine 20 mg Tablet 20 mg PO BID Qty: 60 0RF Xarelto 10 mg Tablet 2.5 mg PO BID Qty: 20 0RF ferrous gluconate 324 mg (37.5 mg iron) Tablet 324 mg PO BIDWM Qty: 30 0RF alprazolam 1 mg tablet 1 mg PO QID 30 Days Qty: 120 0RF oxycodone-acetaminophen 10-325 mg Tablet 1 tab PO Q6H PRN (Reason: Moderate Pain) 7 Days Qty: 28 0RF OxyContin 20 mg Tablet,Oral Only,Ext.Rel.12 Hr 20 mg PO BID 7 Days Qty: 14 0RF Continued clopidogrel [Plavix] 75 mg tablet 75 mg PO DAILY Qty: 30 0RF atorvastatin 80 mg tablet 80 mg PO BEDTIME 30 Days Qty: 30 1RF duloxetine 30 mg capsule,delayed release(DR/EC) 30 mg PO DAILY Qty: 90 0RF metoprolol succinate 25 mg tablet extended release 24 hr 25 mg PO DAILY Qty: 90 0RF polyethylene glycol 3350 [Miralax] 17 gram powder in packet 17 g PO DAILY Qty: 100 0RF sennosides [senna] 8.6 mg tablet 8.6 mg PO DAILY Qty: 90 0RF quetiapine [Seroquel] 300 mg tablet 300 mg PO BEDTIME naloxone 0.4 mg/mL Solution 0.4 mg SUBCUT Q3M PRN (Reason: OPIATE OVERDOSE) Rx Instructions: NTExceed 10 mg total dose/episode Xarelto 2.5 mg Tablet 2.5 mg PO BID gabapentin 300 mg capsule 600 mg PO TID Discontinued aspirin 81 mg tablet,delayed release (DR/EC) 81 mg PO DAILY Qty: 90 3RF hydroxyzine HCl 25 mg tablet 25 mg PO TID PRN (Reason: itching) Qty: 90 0RF metformin 500 mg Tablet 500 mg PO DAILY oxycodone 5 mg Tablet 5 mg PO Q4H PRN (Reason: Pain) lisinopril-hydrochlorothiazide 20-25 mg tablet 1 tab PO QAM Discharge Orders: Discharge Order (Routine); Ordered 03/17/24 Ordered By: Lilliam Parham Referrals: Anton Box [Other] Anastacio Moss DO [Physician] - 03/20/24 2:45 pm Nilesh Hutchinson MD [Primary Care Provider] - 4-7 days Discharge Diet: Diabetic Discharge Activity: Resume usual activity Patient Instructions: Opioid Safety Activity Restrictions/Additional Instructions: Should follow-up with wound care clinic at the earliest. Follow-up with primary care provider within next 3 to 4 days. Aspirin has been stopped. Continue taking your Xarelto and Plavix going forward. Combination of lisinopril and hydrochlorothiazide has been discontinued. Take lisinopril 10 mg oral daily instead. Goal blood pressure of less than 140/90 mmHg. Metformin has been discontinued. Instead take Januvia. Patient would also benefit from Jardiance. Patient can get medications through [facility] Discharge Attestations Time Spent in Discharge Care*: greater than 30 min Quality Metrics Clinical Quality Measures [ No reported AMI, CVA or VTE this stay] Coding Level of Care Code Acute Code for Chg Fwd Diagnoses History of skin graft Z94.5 Encounter for wound care Arteriovenous graft infection T82.7XXA Dehiscence of wound T81.30XA Coronary artery disease involving [place] coronary artery of [place] heart with unstable angina pectoris I25.110 Associated angina: with unstable angina Coronary Disease-Associated Artery/Lesion type: [place] artery [place] vs. transplanted heart: [place] heart Peripheral vascular disease I73.9 Suicidal ideation R45.851 Social discord Z65.8
[2024-03-17] MEDS: duloxetine 30 mg Capsule PO (09:00)
[2024-03-17] MEDS: metformin 500 mg Tablet 1000 MG PO (09:00)
[2024-03-17] MEDS: ferrous gluconate 324 mg Tablet PO (09:00)
[2024-03-17] MEDS: ALPRAZolam 0.5 mg Tablet 1 MG PO ×2 (09:00→12:44)
[2024-03-17] MEDS: famotidine 20 mg Tablet PO (09:00)
[2024-03-17] MEDS: gabapentin 400 mg Capsule PO (09:00)
[2024-03-17] MEDS: oxyCODONE 20 mg ER (12 HR) Tablet PO (09:00)
[2024-03-17] MEDS: clopidogrel 75 mg Tablet PO (09:00)
[2024-03-17] MEDS: rivaroxaban 10 mg Tablet 2.5 MG PO (09:01)
[2024-03-17] MEDS: metoprolol succinate ER (24 HR) 25 mg Tablet PO (09:01)
[2024-03-17] MEDS: lisinopril 10 mg Tablet PO (09:01)
[2024-03-17 11:46] LABS: Glucose Point of Care 208 mg/dL (70-110)
[2024-03-17] MEDS: insulin lispro 100 unit/1 mL SUBCUT (12:44)
== END 2024-03-17 14:00 | disposition skilled nursing facility (03) | DRG 876 ==
LOC: ER 21:36 → NP 21:44 → MEDSURG 02-29 13:09
PROVIDERS: Family Medicine; Internal Medicine; Student in an Organized Health Care Education/Training Program; Surgery; Admitting Provider Psychiatry & Neurology Psychiatry; Emergency Provider Student in an Organized Health Care Education/Training Program; PCP Family Medicine Adult Medicine; Visit Provider Psychiatry & Neurology Psychiatry
PROC: 0HRLXJ4 Replacement of Left Lower Leg Skin with Synthetic Substitute, Partial Thickness, External Approach (ICD-10-PCS; principal; 2024-03-01 15:15)
DX: F32.9 Major depressive disorder, single episode, unspecified (principal); R45.851 Suicidal ideations; T81.30XA Disruption of wound, unspecified, initial encounter; I73.9 Peripheral vascular disease, unspecified; I10 Essential (primary) hypertension; F10.21 Alcohol dependence, in remission; N52.9 Male erectile dysfunction, unspecified; G89.29 Other chronic pain; M25.512 Pain in left shoulder; F41.1 Generalized anxiety disorder; F41.0 Panic disorder [episodic paroxysmal anxiety]; F17.210 Nicotine dependence, cigarettes, uncomplicated; I25.10 Atherosclerotic heart disease of native coronary artery without angina pectoris; Z79.02 Long term (current) use of antithrombotics/antiplatelets; Z79.01 Long term (current) use of anticoagulants; Z59.00 Homelessness unspecified; Z86.718 Personal history of other venous thrombosis and embolism; Z95.5 Presence of coronary angioplasty implant and graft
CPT/HCPCS: 36415; 36416; 73700; 80048; 80053; 80061; 80306; 80307; 81003; 82607; 82746; 82962; 83036; 83540; 83550; 83735; 84145; 84443; 84484; 85025; 85651; 86140; 87040; 93005; 96372; 97150; 97161; 97165; 99285; J0690; J1100; J1170; J1200; J1630; J1815; J2060; J2250; J2270; J2405; J2543; J2704; J3010; J7030

== ENCOUNTER 2024-03-31 12:22 | Inpatient (IN) | payer MEDICAID, SELFPAY ==
--- NOTE | 2024-03-31 12:38 | W.ED.PSYCHS ---
HPI - Psych General: Chief Complaint: Psychiatric Symptoms Stated Complaint: si Time Seen by Provider: 03/31/24 12:26 Source: patient Mode of arrival: wheelchair Limitations: no limitations History of Present Illness: Patient is a 44-year-old male who presents to ED today stating he is suicidal. He feels like most of his suicidal ideations are stemming from the pain he is having in his left leg. Patient has undergone extensive treatment for the left leg including a graft that was placed due to extensive clot burden subsequently became infected and required IV antibiotics as well as a skin graft that was performed here by Dr. Moss. Patient states he has started to notice swelling in the legs starting a few days ago. He was reportedly on several different opiate pain medications including Oxycodone and OxyContin as well as Xanex for anxiety but was taken off all of them and now complaining of severe pain. Later find out-he left his rehabilitation facility that he was discharged to yesterday because he said they were all crazy there and now he doesn't have any of his meds. He did follow-up with [facility] approximately 2 weeks ago for follow-up of his skin graft and everything was appearing normal at that time. complaint: suicidal ideation and feels depressed Onset (ago): day(s) Duration: constant History of same: Yes Relieving factors: none Exacerbating factors: other (leg pain) Associated psychiatric symptoms: depression and suicidal ideation Associated symptoms: Reports depression and suicidal ideation; Deny auditory hallucinations, visual hallucinations or homicidal ideation Treatments prior to arrival: none Review of Systems Const: Denies: fever(s), chills, body aches, fatigue or malaise Card: Denies: chest pain, palpitations, lightheadedness or syncope Resp: Denies: dyspnea GI: Denies: abdominal pain, nausea, vomiting or diarrhea Musc: Reports: extremity pain and extremity swelling Skin/Breast: Reports: other (skin graft left lower extremity); Denies: rash Neuro: Denies: headache(s) Psych: Reports: anxiety, depression, hopelessness and suicidal ideation; Denies: visual hallucinations, auditory hallucinations or homicidal ideation [facility] ED PFSH: Medical History Social discord Arteriovenous graft infection Alcohol dependence Psychiatric care 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 Prediabetes Erectile dysfunction Chronic pain in left shoulder Had pain present when seen 12/2021 on his first visit and thought he might have a rotator cuff tear then Generalized anxiety disorder with panic attacks Benzodiazepine abuse Dental caries associated with enamel hypomineralization Cigarette smoker Claudication in peripheral vascular disease Since 2018 with walking 100 yards or less Chronic low back pain Torn rotator cuff Hypertension Depression Surgical History History of skin graft Split thickness skin graft of left lower extremity?03/01/2024 History of coronary angioplasty with insertion of stent Family History Other CAD (coronary artery disease) Social History Smoking and tobacco/nicotine status: current every day tobacco/nicotine user cigarettes Packs smoked per day: 2 Alcohol intake: current Alcohol intake frequency: few times a week Substance/Drug Use: never Marital status: Single Number of children: 0 Current occupational status: employed Physical Exam Const: COMMON NORMALS: no acute distress, patient oriented x3, alert and well nourished GENERAL APPEARANCE: cooperative and well kempt Resp: COMMON NORMALS: normal respiratory effort and clear to auscultation bilaterally AUSCULTATION: clear to auscultation bilaterally Cardio: COMMON NORMALS: regular rate and regular rhythm RATE: regular rate RHYTHM: regular rhythm Extremity: COMMON NORMALS: full ROM and capillary refill normal NARRATIVE EXTREMITY EXAM: diffuse swelling noted to L LE; no redness/warmth; no coolness/pallor; distal DP/PT pulses are easily felt; sensation and cap refill normal; skin graft to medial aspect appears well healing and non-infected GENERAL: Yes normal exam except as noted LEFT LOWER EXTREMITY: Yes lower leg Neuro: COMMON NORMALS: patient oriented x3, moves all extremities, no focal motor deficits and no sensory deficits noted SENSORIUM/ORIENTATION: Yes alert Psych: COMMON NORMALS: mental status grossly normal, Normal thought process present, cooperative, normal affect, speech normal and activity/motor behavior normal APPEARANCE: Yes well kempt ACTIVITY/MOTOR BEHAVIOR: Yes appropriate eye contact and No psychomotor agitation SPEECH: Yes normal speech THOUGHT PROCESS: Normal thought process present MEMORY/COGNITION: Yes cognition grossly intact INSIGHT: Good insight present (Psych) JUDGEMENT: Good judgement present (Psych) Course Consultations: Consultation #1: Dr. Andrews-accepts admission to NPU Vital Signs: Vital signs: Vital Signs Temperature 98.1 F 03/31/24 13:05 Pulse Rate 85 03/31/24 13:05 Respiratory Rate 17 03/31/24 13:18 Blood Pressure 139/93 03/31/24 13:05 Pulse Oximetry 95 03/31/24 13:18 Oxygen Delivery Me thod Room Air 03/31/24 13:05 MDM - Psych Medical Decision Making Patient's ultrasound of his left leg is negative for DVT. Doug was able to visualize arteries as well and he has patent grafts and triphasic flow. There was no fluid collection around his skin graft. Patient voluntary left his rehabilitation center yesterday and is now out of his medications which I feel most likely is prompting his visit currently. He is now homeless. He is reporting suicidality. Spoke to Dr. Andrews who will admit. Medical Records I reviewed the patient's medical records. Lab Data I reviewed the patient's lab results. 03/31/24 12:57 03/31/24 12:57 Laboratory Results WBC 12.31 10^3/uL (3.29-11.43) H 03/31/24 12:57 RBC 4.99 10^6/uL (3.85-5.65) 03/31/24 12:57 Hgb 13.60 g/dL (11.27-16.99) 03/31/24 12:57 Hct 42.2 % (37-53) 03/31/24 12:57 MCV 84.6 fl (82-101) 03/31/24 12:57 MCH 27.3 pg (27-33) 03/31/24 12:57 MCHC 32.2 g/dL (30-55) 03/31/24 12:57 RDW 14.6 % (12.1-15.1) 03/31/24 12:57 Plt Count 356 10^3/cmm (157-399) 03/31/24 12:57 MPV 8.1 fL (7.4-10.4) 03/31/24 12:57 Neut % (Auto) 61.0 % 03/31/24 12:57 Lymph % (Auto) 28.3 % 03/31/24 12:57 [place] % (Auto) 7.0 % 03/31/24 12:57 Eos % (Auto) 2.6 % 03/31/24 12:57 Baso % (Auto) 0.5 % 03/31/24 12:57 Neut # (Auto) 7.51 10^3/uL (1.8-7.7) 03/31/24 12:57 Lymph # (Auto) 3.5 10^3/uL (0.8-4.8) 03/31/24 12:57 [place] # (Auto) 0.9 10^3/uL (0.2-0.9) 03/31/24 12:57 Eos # (Auto) 0.3 10^3/uL (0.0-0.8) 03/31/24 12:57 Baso # (Auto) 0.1 10^3/uL (0.0-0.1) 03/31/24 12:57 Nucleated RBC % (auto) 0 % 03/31/24 12:57 Nucleated RBCs # 0.0 /100WBC 03/31/24 12:57 PT 14.60 SECONDS (12.1-14.9) 03/31/24 12:57 INR 1.10 (0.8-1.2) 03/31/24 12:57 Sodium 137 mmol/L (136-145) 03/31/24 12:57 Potassium 3.5 mmol/L (3.5-5.1) 03/31/24 12:57 Chloride 102 mmol/L (98-107) 03/31/24 12:57 Carbon Dioxide 22 mmol/L (22-29) 03/31/24 12:57 Anion Gap 16.5 (5-19) 03/31/24 12:57 BUN 5 mg/dL (6-20) L 03/31/24 12:57 Creatinine 0.6 mg/dL (0.7-1.2) L 03/31/24 12:57 GFR Calculation 145.7 mL/min (90-130) H 03/31/24 12:57 Glucose 94 mg/dL (65-115) 03/31/24 12:57 Calculated Osmolality 281 mOsm/kg (285-295) L 03/31/24 12:57 Calcium 9.1 mg/dL (8.5-10.5) 03/31/24 12:57 Total Bilirubin 0.2 mg/dL (0.15-1.2) 03/31/24 12:57 AST 23 U/L (0-40) 03/31/24 12:57 ALT 25 U/L (0-41) 03/31/24 12:57 Alkaline Phosphatase 98 U/L (40-130) 03/31/24 12:57 Total Protein 7.2 g/dL (6.6-8.7) 03/31/24 12:57 Albumin 4.1 g/dL (3.5-5.2) 03/31/24 12:57 Globulin 3.1 g/dL (1.3-4.6) 03/31/24 12:57 Salicylates < 0.3 mg/dL (3-10) L 03/31/24 12:57 Acetaminophen < 5.0 ug/mL (10-30) L 03/31/24 12:57 Ethyl Alcohol < 10 mg/dL (0-10) 03/31/24 12:57 All radiology interpretation(s) finalized by discharge Discharge Plan Discharge Patient Disposition: Admitted As Inpatient Admit Provider: Keny Andrews Clinical Impression: Suicidal ideation, Left leg swelling Condition: Stable Coding Level of Care Code ED Anatomic Pathologist for Adam Adair
--- NOTE | 2024-03-31 12:53 | USCV_ITS ---
Rudy Crawford Age: 44 Gender: M : 1980 Exam Date: 03/31/2024 13:31 Ordering Phys: Ester Cunningham Technologist: Dany Canales [place] [facility] [place]: [place]/ pain HISTORY: Patient has history of arteriovenous graft recently. Patient's wound got infected and then Dr. Moss had to perform a skin graft at the surgery site. Patient now complaining of swelling and pain. PROCEDURES: Venous duplex imaging was performed in only the left lower extremity. The following venous structures were evaluated: common femoral vein, profunda vein, proximal portion of the greater saphenous vein, superficial femoral vein, and the popliteal vein. In addition, the posterior tibial and peroneal trunk were evaluated. Serial compression, augmentation maneuvers, and spectral Doppler flow evaluation were performed. FINDINGS: Normal 2-D Doppler and augmentation and compressibility throughout the lower extremity venous structures. Additional imaging through the proximal calf veins also reveals no thrombus. Limited evaluation of the greater saphenous vein is patent with no thrombus. Noted also is what appears to be a patent arteriovenous graft located behind left knee. CONCLUSIONS No evidence of left lower extremity DVT. Popliteal artery bypass graft is patent Morgan Gandara MD (Electronically Signed) Final Date: 31 March 2024 14:06 S
[2024-03-31 13:05] VITALS: BP 139/93; PULSE 85; RESP 18; TEMP 36.7; O2SAT 95
[2024-03-31] MEDS: LORazepam 2 mg/mL INJ 1 mL 1 MG IM (13:06)
[2024-03-31 13:17] LABS: Basophils # 0.1 10^3/uL (0.0-0.1); Basophils % 0.5 %; Eosinophils # 0.3 10^3/uL (0.0-0.8); Eosinophils % 2.6 %; Hematocrit 42.2 % (37-53); Lymphocytes # 3.5 10^3/uL (0.8-4.8); Lymphocytes % 28.3 %; Mean Corpuscular HGB Conc 32.2 g/dL (30-55); Mean Corpuscular Hemoglobin 27.3 pg (27-33); Mean Corpuscular Volume 84.6 fl (82-101); Mean Platelet Volume 8.1 fL (7.4-10.4); Monocytes # 0.9 10^3/uL (0.2-0.9); Neutrophils # 7.51 10^3/uL (1.8-7.7); Nucleated Red Blood Cells % 0 %; Platelet Count 356 10^3/cmm (157-399); Red Blood Count 4.99 10^6/uL (3.85-5.65); Red Cell Distribution Width 14.6 % (12.1-15.1); White Blood Count 12.31 10^3/uL (3.29-11.43)
--- NOTE | 2024-03-31 13:17 | PC.PHAR ---
[facility] FAXING CURRENT MED LIST. 03/31/24 1:15PM
[2024-03-31 13:18] VITALS: RESP 17; O2SAT 95
[2024-03-31] MEDS: morphine 4 mg/mL SDV 1 mL IM (13:18)
[2024-03-31 13:31] LABS: Alanine Aminotransferase 25 U/L (0-41); Albumin Level 4.1 g/dL (3.5-5.2); Alkaline Phosphatase 98 U/L (40-130); Anion Gap 16.5 (5-19); Aspartate Amino Transferase 23 U/L (0-40); Blood Urea Nitrogen 5 mg/dL (6-20); Calcium 9.1 mg/dL (8.5-10.5); Carbon Dioxide 22 mmol/L (22-29); Chloride 102 mmol/L (98-107); Globulin 3.1 g/dL (1.3-4.6); Glomerular Filtration Rate 145.7 mL/min (90-130); Glucose 94 mg/dL (65-115); Osmolality Calculated 281 mOsm/kg (285-295); Potassium 3.5 mmol/L (3.5-5.1); Sodium 137 mmol/L (136-145); Total Bilirubin 0.2 mg/dL (0.15-1.2); Total Protein 7.2 g/dL (6.6-8.7)
[2024-03-31 13:35] LABS: Acetaminophen < 5.0 ug/mL (10-30); Alcohol Level < 10 mg/dL (0-10); Salicylate < 0.3 mg/dL (3-10)
[2024-03-31 14:56] VITALS: BP 147/107; PULSE 82; RESP 16; TEMP 36.6; O2SAT 98
[2024-03-31] MEDS: metformin 500 mg Tablet 1000 MG PO (17:52)
[2024-03-31] MEDS: famotidine 20 mg Tablet PO (17:52)
[2024-03-31] MEDS: rivaroxaban 10 mg Tablet 2.5 MG PO (17:52)
[2024-03-31 19:39] VITALS: BP 147/96; PULSE 79; RESP 18; TEMP 36.8; O2SAT 98
[2024-03-31 20:00] LABS: Glucose Point of Care 167 mg/dL (70-110)
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
[2024-03-31] MEDS: ALPRAZolam 0.5 mg Tablet 1 MG PO (21:14)
[2024-03-31] MEDS: gabapentin 300 mg Capsule 600 MG PO (21:40)
[2024-03-31] MEDS: atorvastatin 40 mg Tablet PO (21:40)
--- NOTE | 2024-03-31 22:30 | PC.NURSE ---
Addendum entered by Kali Combs RN 04/01/24 03:52: During the last medication Pt is stating to this RN that he believes he will be having difficult sleeping. RN offered PRN sleeping helpful medications that are on Pt's chart and Pt requested PO benadryl. When RN went back into Pt's room he was already asleep and this RN did not wake him up to administer it Original Note: During the last medication m
[2024-04-01] VITALS (7 sets, daily range): BP systolic 127–172; BP diastolic 78–111; PULSE 71–92; RESP 16–18; TEMP 36.5–36.9; O2SAT 96–98
[2024-04-01] MEDS: metformin 500 mg Tablet 1000 MG PO ×2 (07:36→17:25)
[2024-04-01] MEDS: ALPRAZolam 0.5 mg Tablet 1 MG PO ×4 (07:36→19:53)
[2024-04-01] MEDS: famotidine 20 mg Tablet PO ×2 (07:37→17:25)
[2024-04-01] MEDS: gabapentin 300 mg Capsule 600 MG PO ×2 (07:37→17:25)
[2024-04-01] MEDS: clopidogrel 75 mg Tablet PO (07:37)
[2024-04-01] MEDS: sitagliptin 100 mg Tablet PO (07:37)
[2024-04-01] MEDS: duloxetine 30 mg Capsule PO (07:37)
[2024-04-01] MEDS: metoprolol succinate ER (24 HR) 25 mg Tablet PO (07:38)
[2024-04-01] MEDS: rivaroxaban 10 mg Tablet 2.5 MG PO ×2 (07:38→17:25)
[2024-04-01 07:48] LABS: Glucose Point of Care 127 mg/dL (70-110)
[2024-04-01] MEDS: lisinopril 20 mg Tablet PO (09:58)
[2024-04-01] MEDS: hydroCHLOROthiazide 25 mg Tablet PO (09:58)
--- NOTE | 2024-04-01 12:19 | P.NPUHP_ITS ---
Providers/Chief Complaint 2 Admitting Physician: Keny Andrews MD Primary Care Provider: Nilesh Hutchinson MD Chief Complaint: si HPI NPU History of Present Illness Rudy Crawford is a 44 year old male with a history of multiple inpatient hospitalizations most recently discharged from [facility] on 03/17/2024. He had been hospitalized at that time and was being sent to a rehabilitation facility for continued treatment of a graft that was performed here by Dr. Moss and the patient needed to receive further physical rehabilitation. The patient reports that he had been at the facility for 1 week and reports that he had been placed on Xanax but that all of his pain medications had been discontinued immediately after arriving there. He reports that his active pain issues and opiate withdrawal issues have led the patient to become suicidal. He reports that he had left the rehabilitation facility AGAINST MEDICAL ADVICE and had unsurprisingly been prescribed no medications. He reports that he has been feeling more depressed and continues to complain of intractable leg pain. He reports no other substantiative changes since his last encounter here less than 2 weeks ago. Current medications: Cymbalta 90 mg daily, famotidine, Xarelto, lisinopril, glimepiride, gabapentin, Plavix, metoprolol, Januvia, Xanax 1 mg 4 times daily, Lipitor Excerpt from NPU admission on 02/26/24 provided below: History of Present Illness Rudy Crawford is a 44 year old male with a history of multiple inpatient psychiatric hospitalizations mostly recently transferred to [facility] in [place] in November for a surgical intervention in his lower left leg. The patient had reported that he had been discharged from [facility] on 02/23/2024 without his pain medicines. The patient had reported that he had become upset and had thrown away his discharge plan that had included how to treat his lower left leg wound. He had presented on 02/25/2024 to the emergency department with suicidal ideation. He reports that he has had recurring hospitalizations over the past 2 months for his complications with his lower left leg as he had reported having a staph infection following a venous graft. He reports having infrequent thoughts of suicide. He had reported increased anxiety as he states that he has not been on his pain medication or his Xanax for the past 3 days. He reports that he has been sleeping poorly. He endorses some feelings of hopelessness. He has reported past history of alcohol abuse but reports that he has been sober with no alcohol use in over 5 months. He reports no substantiative changes since his last hospitalization other than an apparent switch from Klonopin to Xanax per patient. Current medications: Atorvastatin, aspirin, betamethasone, Plavix, Cymbalta, gabapentin, hydroxyzine, metformin, metoprolol, lisinopril Excerpt from Discharge Summary NPU on 12/08/23 Discharge Diagnosis (1) Claudication in peripheral vascular disease: Status: Acute Permanent problem details: Since 2018 with walking 100 yards or less (2) Peripheral vascular disease: Status: Acute (3) Hyperlipemia: Status: Acute (4) Prediabetes: Status: Acute (5) Hypertension: Status: Acute Qualifiers: Hypertension type: primary hypertension Qualified Code(s): I10 - Essential (primary) hypertension Reason for Visit SI Brief History: History of Present Illness Rudy Crawford is a 43 year old male who presents with suicidal ideation to the emergency department stating that he was depressed and tired and significant pain. He reports that he has not been using alcohol. He does report that he had missed his appointment for his surgeon to manage his peripheral vascular disease yesterday. He reported that [facility] had [facility] but was kicked out because he had not given up all of his medications. He reports that he has not been abusing any alcohol nor has you been abusing his Klonopin. He has reported that he continues to be tired of being homeless and states that he has had thoughts of hurting himself with plans to run into traffic. He had reported having problems with memory and concentration. He reports chronic pain issues in his back as well. The patient had stated that he had tried to remain hopeful about his girlfriend finding him in her place but believes that this will not be available until December. He reports low energy and low motivation. He reports having more frequent crying episodes. He states that his medications for depression had not been helpful so he had discontinued them. He reports no substantial changes since his last hospitalization. NPU Discharge Summary from 11/15/23 Diagnoses at Discharge Discharge Diagnosis (1) Major depressive disorder: Status: Acute (2) Panic disorder: Status: Inactive (3) Alcohol dependence: Status: Acute (4) Generalized anxiety disorder with panic attacks: Status: Acute Reason for Visit SI Brief History: History of Present Illness Rudy Crawford is a 43 year old male Admitted with suicidal ideation after presenting to the emergency department stating that he wished to jump out in front of a car. The patient had reported that he had been in a psychiatric facility at [facility] for the past week and was discharged on on new psychiatric medications. He had complained that he had not been able to urinate since starting his Seroquel. He reports that he has been more depressed currently. He reports that he has continued panic attacks. He reports that he has continued feelings of hopelessness and worthlessness. He reports that he has not used any illicit drugs or alcohol in over 3 months now. He reports that his Klonopin has been lowered from 6 mg/day to 3 mg/day over the last 6 weeks. He reports that he has been attempting to work but states that it has not been successful recently. He reports that he was previously staying in a snf in [place] but states that he has been homeless for weeks. Inpatient psychiatric history: Multiple inpatient stays over the last year. Outpatient psychiatric history: He has recently started with outpatient therapy and medication management at the [facility]. Current medications: Klonopin 1 mg 3 times a day, Plavix 75 mg daily, Cymbalta 60 mg twice a day, Lamictal 75 mg daily, lisinopril, nitroglycerin, propranolol 20 mg 3 times a day, Seroquel 300 mg at night, hydrocodone 1 tablet 4 times a day for pain Medical history: As previous with history of prediabetes, erectile dysfunction, left shoulder pain, peripheral vascular disease with a history of carotid Stenosis, 11/10/23:Doppler of the left lower extremity showed complete occlusion of the distal superficial femoral artery Surgical history: Rotator cuff surgery Allergies: codeine, toradol, trazodone Drug and alcohol hx: sober off alcohol for 4 months, Social Hx: see below, no new changes. Discharge summary from NPU on 08/18/23 Diagnoses at Discharge Discharge Diagnosis (1) Major depressive disorder: Status: Acute(2) Panic disorder: S tatus: Inactive(3) Alcohol dependence: Status: Acute(4) Generalized anxiety disorder with panic attacks: Status: Acute Reason for Visit Homicidal Brief History: History of Present Illness Rudy Crawford is a 43 year old male who presented to the emergency department with the following report: Chief Complaint: Psychiatric Symptoms Stated Complaint: Homicidal Time Seen by Provider: 08/13/23 14:05 Source: patient Mode of arrival: ambulatory Limitations: no limitations History of Present Illness: ? Patient is a 43-year-old male presents to ED today stating he is homicidal towards drug addicts and meth heads .? He states if one more meth head talks to him or knocks on his door then he is going to hurt them. No specific plan. Denies suicidal ideations. No psychosis symptoms. Recently admitted to NPU earlier this month. Reports being drug free for 8 years. Does have a history of alcohol abuse. ? MD complaint: other (homicidal ideation) Onset (ago): day(s) Duration: constant Relieving factors: none Context: significant life stressor Associated psychiatric symptoms: homicidal ideation Associated symptoms: Reports homicidal ideation; Deny auditory hallucinations, visual hallucinations, depression or suicidal ideation Treatments prior to arrival: none He was admitted to the neuropsychiatric unit for definitive treatment of those issues.? He is known to this process description writer through past inpatient hospitalization.? His last psychiatric hospitalization ended 07/30/2023 and an excerpt of that summary is included below for context and the fact that there have been no substantive changes.? It is noteworthy that a week later on 08/06/2023 he was admitted to the medical unit where some cardiac disease was noted and plans for continued follow-up were executed.? He was discharged on 08/12/2023 from that and he returns now reporting being overwhelmed at home secondary to meth heads knocking on his door etc.? He endorsed homicidality towards these individuals and we had a long discussion about the legal implications of him acting out in an aggressive way.? We also had a long discussion about concerns related to malingering as well as concerns that this may have something to do with him not having enough Klonopin available even though he should have extra given the hospitalization.? He categorically denies that this has anything to do with the Klonopin.? We discussed moving forward with a plan to taper the Klonopin by 0.5 mg every 2 weeks such that he will be on 3-1/2 mg total daily for the next 2 weeks.? We discussed this being a short hospitalization and a plan for him to reconsider where he is living if he can get along with the people there. Per his 07/30/2023 [facility] inpatient psychiatric discharge summary: Discharge Diagnosis (1) Major depressive disorder:? ? ? Status: Acute(2) Panic disorder:? ? ? Status: Inactive(3) Alcohol dependence:? ? ? Status: Acute(4) Generalized anxiety disorder with panic attacks:? ? ? Status: Acute Reason for Visit Reason for Visit: ? psych eval? Brief History: History of Present Illness Rudy Crawford is a 43 year old male recently discharged last month from the neuropsychiatric unit who presented to the emergency room complaining of suicidal ideation and continued depression.? The patient had stated that he had been discharged from [facility] yesterday and reports that over the past 4 days his Klonopin had been decreased from 6 mg a day to 2 mg a day within a short period of time.? He reports some irritability and agitation since this reduction.? He had denied having used alcohol for the past few weeks.? He reports that he has been homeless.? He had reported that he had been struggling with panic attacks as well.? Patient had stated that he has been feeling more hopeless and worthless.? He reports sleep continuity disruption.? He had reported that he was hopeful of finding a snf in the nearby area.? He reports no acute changes otherwise and stated above. Current medications: gabapentin, aspirin, lisinopril, propranolol, quetiapine, trazodone, klonopin Previous discharge summary from NPU on 05/23/23 History of Present Illness Rudy Crawford is a 43 year old male who presented to the emergency department with the following report: Chief Complaint: Psychiatric Symptoms Stated Complaint: mag Time Seen by Provider: 05/22/23 16:58 History of Present Illness: Presents to the ER with complaints of suicidal ideations.? Patient said the world just coming down around him.? Last week patient lost his job, got really really drunk and decided to check himself into rehab down at [place] spent 3 days they are in when he got out felt that it he need just needed more time to help.? Patient is having bad thoughts of suicide.? Patient was on a bridge today and thought of jumping.? Since patient lost his job and is planning on moving in with his girlfriend and having major life stressors. He was admitted to the neuropsychiatric unit for the definitive treatment of those issues.? Patient presented today reporting that things are very stressed he reports that his anxiety is out of control and that he lost his job.? He reports that he is temporarily homeless and that he is moving into a new place next week with some woman that he has a relationship with.? He endorsed having suicidal thoughts but reports those have diminished.? He endorses a history of having anxiety helps with Klonopin.? He reports that his anxiety gets so [id number] that he has chest pains and feels like he might have a heart attack.? He endorses maybe having a cardiac history.? We reviewed his previous hospitalization from August of last year and an excerpt of that stay is included below for context and his report of limited/no substantive changes since that today.? Outside of his current living arrangement issues.? We discussed possible medications for his anxiety and he was very focused on not changing the Klonopin which we discussed that 2 mg p.o. 3 times daily is a very high dose.? He reports it has been very effective but cannot explain why he was always anxious if it is very effective.? He is not interested in any medications like SSRIs etc. reporting he knows what works.? He had initially talked about leaving AMA but then reported he would stay but he seemed quite ambivalent about this stay overall. Per his 09/25/2022 [facility] inpatient psychiatric discharge summary: Discharge Diagnosis (1) Panic disorder:? ? ? Status: Acute(2) Alcohol dependence:? ? ? Status: Acute(3) Benzodiazepine abuse:? ? ? Status: Acute Reason for Visit Reason for Visit: ? Suicidal ideation? Brief History: History of Present Illness Rudy Crawford is a 42 year old male who had presented to his primary care nurse on 09/22/2020 2 in the morning requesting treatment for alcohol withdrawal.? He reports that he wishes to stop his consumption of alcohol and stated that he was having withdrawal symptoms as he had reported having last consumed alcohol on the night of 09/21/2022.? He had reported having consumed a gallon of fireball whiskey and reports having consumed a case of beer on a daily basis.? He reports his consumption of alcohol has been increasing since he was taken abruptly off of his prescribed Klonopin of 2 mg/day.? He had reported a previous history of panic attacks and considerable anxiety that had been worsening his cardiac problems.? He states that he had not been prescribed Klonopin for over a month.? He endorses a past history of withdrawal seizures although it is uncertain as to whether that was associated with withdrawal from benzodiazepines or alcohol.? He had acknowledged no depression but states that his panic attacks have been more frequent over the past few months.? He reports an extended history of chest pain shortness of breath difficulty swallowing and feeling like he is going to .? He reports that these panic attacks occur without triggers frequently. Current medications: gabapentin 300mg bid, hydrochlorothiazide/lisinopril: 25mg/20mg, hydroxyzine 25mg bid Previous admission on 06/22/2022 at [facility]: Rudy Crawford is a 42 year old single white male with a history of panic attacks coronary artery disease and hypertension who reports to the emergency department with suicidal ideation with a plan to jump off of a bridge.? He had reported that he had been feeling more depressed and reported uncontrolled anxiety over the past 3 months since he had ran out of his Klonopin 1 mg twice a day.? He had reported that he has had chronic panic attacks for many years with unknown triggered panic attacks lasting approximately 40 minutes with associated chest pain shortness of breath numbing and tingling in his fingers and difficulty with breathing.? He reports that his panic attacks have led him to the emergency department multiple times with complaints of chest pain.? He reports that he had a heart attack a few years ago and he has had these panic attacks since that time.? The patient reports being burdened by anxiety over the past few months.? He reports that he had been unable to receive his Klonopin in [place], [place] where he had moved.? He reports that he had recently moved back to the area and had not been able to see his primary care physician yet to get back on his Klonopin.? The patient had reported diminished energy low motivation and depressed mood for the past month.? He had endorsed having suicidal thoughts.? He denied any psychotic symptoms.? He denied any history of manic symptoms.? He had reported a long history of chronic worry since his heart attack occurred. Past psychiatric history: Patient has a history of 1 inpatient hospitalization 2 years ago for suicidal ideation at [facility] in [facility].? He had reported no history of psychotherapy but reports a history of having been treated for panic attacks and depression with medication trials on Lexapro and xanax.? He also reported a history of having been treated for opioid abuse with a history of having been in methadone clinic for a few years having last used methadone 6 years ago. Medical history: Chronic lower back pain peripheral vascular disease with claudication history of carotid stenosis history of hypertension, HTN Surgical history he has a history of placement of stent in the coronary artery he has a history of repair of a torn rotator cuff Allergies: Toradol Medications: Klonopin 1 mg twice a day aspirin 81 mg in the morning clonidine 0.1 mg twice a day nitroglycerin as needed Drug and alcohol history: He reports having begun use of opiates at the age of [age].? He had reported last use of opiates for treating pain few days ago.? He had reported a past history of methadone treatment but reports no substance abuse inpatient or rehabilitation in the past.? He had reported a past history of alcohol abuse but reports that he has not been drinking recently.? He denies any history of benzodiazepine misuse. Family psychiatric history: alcohol abuse-father Social History: Patient was born and raised in [facility] [facility].? He is currently living in [place] [facility].? He has never been and has no children.? He was raised by his biological parents and is the youngest of 5.? 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 He denies any significant history of trauma.? He denies any history of legal issues. Update: Patient had endorsed recently having been hospitalized at [facility] in late July in an attempt to help with detoxification off of benzodiazepines and alcohol.? He reports that he had left and intensive inpatient rehabilitation facility in [place] in early August 2022.? His living situation is also changed he is currently staying with a friend near [facility]. Hospital Course He slowly acclimated to the individual, group and milieu therapies provided.? A growing theme in his visits seems to be his Klonopin.? His last hospitalization he came in left on the same day in the drive for leaving appeared to be Klonopin.? He began to leave AMA at 1 point and the issue of note was Klonopin.? Prior to discharge this process description writer reached out to his current prescriber who identified that he would like him to be on the lower dose but seemed very hesitant to be the commercial driver of that change.? We agreed to drop him to 1 mg p.o. 4 times daily from the 2 mg p.o. 3 times daily.? He was given a 2-week prescription that was going to be active in 2 weeks as he left with 56 1 mg tablets that would serve him for 4 times daily for the next 2 weeks.? Therefore he had a month of medication in his outpatient provider agreed that he would see him and consider dropping it down to 3.5 mg daily otherwise he refused the Vivitrol injection reporting that he still wants to drink some and we identified that being an issue like Klonopin is a bad idea.? He was also discharged on Celexa 20 mg daily Neurontin 600 mg p.o. twice daily.? He was working with the social work team for possible treatment options but was very resistant to the options that were identified.? He had modest improvement and he was able to contract for safety outside of the hospital prior to discharge.? During the hospitalization, patient had routine laboratory studies which were within normal limits except for few outliers.? Additionally there was a general medical evaluation which was also within normal limits and revealed no new acute processes. ?At the time of discharge, he denied psychosis or lethality.? Mood and anxiety were well managed.? Patient endorsed a plan to avoid all drugs of abuse and follow-up with the aftercare recommendations of the treatment team.? Patient was evaluated and deemed to be absent credible lethality, and achieved a maximum benefit from an inpatient hospitalization, so was discharged. Hospital Course Hospital Course During the hospitalization, the patient had routine laboratory studies which were within normal limits except for a few outliers.? Additionally, there was a general medical evaluation which was also within normal limits and revealed no new acute processes.? At the time of discharge, lethality was denied and psychosis was resolving.? Mood and anxiety were well managed.? The patient endorsed a plan to avoid all drugs of abuse and follow up with the aftercare recommendations of the treatment team.? The patient was evaluated and deemed to be absent credible lethality and had achieved the maximum benefit from an inpatient hospitalization, and so was discharged.? Seroquel was discontinued due to concerns that it worsened the patient's urinary retention. Another CV arterial duplex of the lower extremity revealed arterial occlusion and it was similar to a recent study and the patient was planning on following up with his Vascular Surgeon Dr. Garett Benton as previously done. Meds NPU Home Medications Medication Instructions Recorded Confirmed Last Taken Type clopidogrel 75 mg tablet (Plavix) 75 mg PO DAILY #30 tabs 12/17/23 03/31/24 03/31/24 Rx duloxetine 30 mg capsule,delayed 30 mg PO DAILY #90 caps 01/27/24 03/31/24 03/31/24 Rx release metoprolol succinate 25 mg 25 mg PO DAILY #90 tabs 01/27/24 03/31/24 03/31/24 Rx tablet,extended release 24 hr naloxone 0.4 mg/mL injection 0.4 mg SUBCUT Q3M PRN OPIATE 02/24/24 03/31/24 Unknown History solution OVERDOSE rivaroxaban 2.5 mg tablet (Xarelto) 2.5 mg PO BID 02/24/24 03/31/24 03/31/24 History sitagliptin phosphate 100 mg 100 mg PO DAILY #30 tabs 02/27/24 03/31/24 03/31/24 Rx tablet (Januvia) glimepiride 2 mg tablet 3 mg (1.5 x 2 mg) PO BIDAC #90 tabs 03/10/24 03/31/24 03/31/24 Rx alprazolam 1 mg tablet 1 mg PO QID 30 days #120 tabs 03/17/24 03/31/24 03/31/24 Rx famotidine 20 mg tablet 20 mg PO BID #60 tabs 03/17/24 03/31/24 03/31/24 Rx metformin 500 mg tablet 1,000 mg (2 x 500 mg) PO BIDWM 03/17/24 03/31/24 03/31/24 Rx #120 tabs atorvastatin 40 mg tablet 40 mg PO BEDTIME 03/31/24 03/31/24 03/30/24 History gabapentin 600 mg tablet 600 mg PO BID 03/31/24 03/31/24 03/31/24 History lisinopril 20 1 tab PO DAILY 03/31/24 03/31/24 03/31/24 History mg-hydrochlorothiazide 25 mg tablet nitroglycerin 0.4 mg sublingual 0.4 mg sublingual PRN PRN Chest 03/31/24 03/31/24 Unknown History tablet (Nitrostat) Pain Allergies Allergy/AdvReac Type Severity Reaction Status Date / Time codeine Allergy ALGY-Hives Verified 03/20/24 14:43 ketorolac [From Toradol] Allergy ALGY-Hives Verified 03/20/24 14:43 trazodone Allergy ALGY-Difficulty Verified 03/20/24 14:43 Swallowing PFSH NPU 2 PFSH: Medical History Social discord Arteriovenous graft infection Alcohol dependence Psychiatric care 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 Prediabetes Erectile dysfunction Chronic pain in left shoulder Had pain present when seen 12/2021 on his first visit and thought he might have a rotator cuff tear then Generalized anxiety disorder with panic attacks Benzodiazepine abuse Dental caries associated with enamel hypomineralization Cigarette smoker Claudication in peripheral vascular disease Since 2017 with walking 100 yards or less Chronic low back pain Torn rotator cuff Hypertension Depression Surgical History History of skin graft Split thickness skin graft of left lower extremity?03/01/2024 History of coronary angioplasty with insertion of stent Family History Other CAD (coronary artery disease) Social History Smoking and tobacco/nicotine status: current every day tobacco/nicotine user cigarettes Packs smoked per day: 2 Alcohol intake: current Alcohol intake frequency: few times a week Substance/Drug Use: never Marital status: Single Number of children: 0 Current occupational status: employed Mental Status Exam 2 MSE Comments: This is an obese white male in hospital scrubs with adequate grooming and fair eye contact. There is no evidence of any abnormal involuntary motor movements tics or tremors appreciated. He was cooperative with exam in moderate distress. Speech was normal in rate, rhythm and prosody. Mood was described as depressed. His affect was restricted and mood congruent. Thought process was linear and organized. Thought content: Patient endorsed suicidal ideation with no plan and denies homicidal ideation. There were no delusions reported or noted, He denied any auditory or visual hallucinations. Attention and concentration appeared intact and memory appeared mostly reliable but none were formally tested. He is alert and oriented x3. Insight, judgment and impulse control are limited versus impaired. He continued to report pain in leg. Vitals/I&O/Wt Last Vital Signs Temp 98.3 F 03/31/24 19:39 Pulse 71 04/01/24 06:00 Resp 17 04/01/24 06:00 BP 127/78 04/01/24 06:00 Pulse Ox 96 04/01/24 06:00 O2 Del Method Room Air 03/31/24 15:01 Data NPU 03/31/24 12:57 03/31/24 12:57 A&P Assessment and plan (1) Major depressive disorder: (2) Panic disorder: (3) Alcohol dependence: Qualifiers: Substance use status: in remission Qualified Code(s): F10.21 - Alcohol dependence, in remission (4) Generalized anxiety disorder with panic attacks: (5) Opioid dependence: Plan Patient is a 44-year-old white male admitted with suicidal ideation, worsening depression, hx of opioid dependence, pain issues, and depression recently taken off pain medications abruptly by previous physical rehabilitation facility leading patient to leave there and report suicidality. 1. Restart cymbalta, previous low dose of opioids and xanax as previously prescribed. 2.? Encourage individual, group and milieu therapy 3.? Continue q-15 minute check for safety 4.? Recommend sober living treatment at the highest level of care to which the patient is willing to commit. 5. Restart outpatient medications. Involuntary Hold Information 2 96 Hour Hold: 96 Hour Involuntary Admission: No Attestations NPU 2 Medical Necessity Statement*: Inpatient hospitalization is medically necessary and clinically appropriate intervention at this time. We will monitor medications and make changes as indicated. Patient will be in the hospital for over 2 midnights. His likely length of stay is 3 to 5 days. Coding Level of Care Code Acute Code for [facility] Fwd Diagnoses Major depressive disorder F32.9 Panic disorder F41.0 Alcohol dependence in remission F10.21 Substance use status: in remission Generalized anxiety disorder with panic attacks F41.1; F41.0 Opioid dependence F11.20
[2024-04-01] MEDS: oxyCODONE 5 mg IR Tab/Cap PO ×3 (12:44→19:52)
[2024-04-01] MEDS: cloNIDine 0.1 mg Tablet 0.2 MG PO (15:16)
[2024-04-01] MEDS: acetaminophen 325 mg Tablet 650 MG PO (15:49)
[2024-04-01] MEDS: hyDROXYzine 25 mg Capsule 50 MG PO (15:49)
[2024-04-01] MEDS: glimepiride 2 mg Tablet 3 MG PO (17:25)
[2024-04-01] MEDS: ibuprofen 600 mg Tablet PO (19:52)
[2024-04-01] MEDS: atorvastatin 40 mg Tablet PO (19:53)
[2024-04-02] VITALS (8 sets, daily range): BP systolic 116–139; BP diastolic 80–106; PULSE 70–85; RESP 16–18; TEMP 36.5–36.8; O2SAT 96–98
[2024-04-02 07:34] LABS: Glucose Point of Care 115 mg/dL (70-110)
[2024-04-02] MEDS: oxyCODONE 5 mg IR Tab/Cap PO ×4 (07:48→21:00)
[2024-04-02] MEDS: acetaminophen 325 mg Tablet 650 MG PO ×3 (07:49→16:41)
[2024-04-02] MEDS: metformin 500 mg Tablet 1000 MG PO ×2 (07:51→17:49)
[2024-04-02] MEDS: ALPRAZolam 0.5 mg Tablet 1 MG PO ×4 (07:51→20:03)
[2024-04-02] MEDS: glimepiride 2 mg Tablet 3 MG PO ×2 (07:52→16:42)
[2024-04-02] MEDS: duloxetine 30 mg Capsule 90 MG PO (07:52)
[2024-04-02] MEDS: lisinopril 20 mg Tablet PO (07:53)
[2024-04-02] MEDS: gabapentin 300 mg Capsule 600 MG PO ×2 (07:53→17:48)
[2024-04-02] MEDS: sitagliptin 100 mg Tablet PO (07:54)
[2024-04-02] MEDS: hydroCHLOROthiazide 25 mg Tablet PO (07:54)
[2024-04-02] MEDS: famotidine 20 mg Tablet PO ×2 (07:54→17:49)
[2024-04-02] MEDS: rivaroxaban 10 mg Tablet 2.5 MG PO ×2 (07:54→17:49)
[2024-04-02] MEDS: metoprolol succinate ER (24 HR) 25 mg Tablet PO (07:54)
[2024-04-02] MEDS: clopidogrel 75 mg Tablet PO (07:54)
[2024-04-02 12:00] LABS: Amphetamines Screen Urine Negative (Negative); Barbiturates Screen Urine Negative (Negative); Benzodiazepines Screen Urine Positive (Negative); Cocaine Screen Urine Negative (Negative); Opiate Screen Urine Positive (Negative); PCP Screen Urine Negative (Negative); THC Screen Urine Negative (Negative)
--- NOTE | 2024-04-02 13:43 | P.NPUPN_ITS ---
Subjective NPU 2 Subjective: 44-year-old male admitted with suicidal ideation with a history of panic attacks and depression along with opioid dependence. Patient reports continued pain issues on opiates prescribed prior to last discharge. He reported no side effects from restarting his previous medications. He had continued to endorse depression but minimized suicidal thoughts. He had reported no cravings for alcohol. Patient had reported that he did have a home currently in [place] and was hopeful about receiving intensive medication assisted treatment for opiate use. Mental Status Exam 2 MSE Comments: This is an obese white male in hospital scrubs with adequate grooming and fair eye contact. There is no evidence of any abnormal involuntary motor movements tics or tremors appreciated. He was cooperative with exam in moderate distress. Speech was normal in rate, rhythm and prosody. Mood was described as depressed. His affect was restricted and mood congruent. Thought process was linear and organized. Thought content: Patient denied suicidal ideation with no plan and denies homicidal ideation. There were no delusions reported or noted, He denied any auditory or visual hallucinations. Attention and concentration appeared intact and memory appeared mostly reliable but none were formally tested. He is alert and oriented x3. Insight, judgment and impulse control are limited versus impaired. He continued to report pain in leg. Vitals/I&O/Wt Last Vital Signs Temp 98.3 F 04/02/24 06:00 Pulse 70 04/02/24 06:00 Resp 18 04/02/24 12:13 BP 138/92 04/02/24 06:00 Pulse Ox 97 04/02/24 06:00 O2 Del Method Room Air 04/01/24 21:07 Weight last 48 hrs Weight 106.141 kg Data NPU 03/31/24 12:57 03/31/24 12:57 A&P Assessment and plan (1) Major depressive disorder: (2) Panic disorder: (3) Alcohol dependence: Qualifiers: Substance use status: in remission Qualified Code(s): F10.21 - Alcohol dependence, in remission (4) Generalized anxiety disorder with panic attacks: (5) Opioid dependence: Plan Patient is a 44-year-old white male admitted with suicidal ideation, worsening depression, hx of opioid dependence, pain issues, and depression recently taken off pain medications abruptly by previous physical rehabilitation facility leading patient to leave there and report suicidality. 1. Restart cymbalta, continue opioids and xanax as previously prescribed. 2.? Encourage individual, group and milieu therapy 3.? Continue q-15 minute check for safety 4.? Recommend sober living treatment at the highest level of care to which the patient is willing to commit. 5. Restart outpatient medications. Seeking discharge directly to MAT program. Involuntary Hold Information 2 96 Hour Hold: 96 Hour Involuntary Admission: No Attestations NPU 2 Medical Necessity Statement*: Inpatient hospitalization is medically necessary and clinically appropriate intervention at this time. We will monitor medications and make changes as indicated. His likely length of stay is 2-4 days. Coding Level of Care Code Acute Code for [facility] Fwd Diagnoses Major depressive disorder F32.9 Panic disorder F41.0 Alcohol dependence in remission F10.21 Substance use status: in remission Generalized anxiety disorder with panic attacks F41.1; F41.0 Opioid dependence F11.20
[2024-04-02] MEDS: atorvastatin 40 mg Tablet PO (20:03)
[2024-04-02 20:20] LABS: Glucose Point of Care 105 mg/dL (70-110)
[2024-04-02] MEDS: hyDROXYzine 25 mg Capsule 50 MG PO (21:00)
[2024-04-03] VITALS (8 sets, daily range): BP systolic 121–137; BP diastolic 73–88; PULSE 80–93; RESP 16–18; TEMP 36.6–36.9; O2SAT 94–99
[2024-04-03] MEDS: oxyCODONE 5 mg IR Tab/Cap PO ×5 (01:43→20:01)
[2024-04-03 07:21] LABS: Glucose Point of Care 126 mg/dL (70-110)
[2024-04-03] MEDS: glimepiride 2 mg Tablet 3 MG PO ×2 (07:55→17:26)
[2024-04-03] MEDS: metformin 500 mg Tablet 1000 MG PO ×2 (07:55→17:26)
[2024-04-03] MEDS: rivaroxaban 10 mg Tablet 2.5 MG PO ×2 (08:01→17:26)
[2024-04-03] MEDS: ALPRAZolam 0.5 mg Tablet 1 MG PO ×4 (08:02→20:00)
[2024-04-03] MEDS: clopidogrel 75 mg Tablet PO (08:02)
[2024-04-03] MEDS: famotidine 20 mg Tablet PO ×2 (08:02→17:26)
[2024-04-03] MEDS: gabapentin 300 mg Capsule 600 MG PO ×3 (08:03→20:03)
[2024-04-03] MEDS: duloxetine 30 mg Capsule 90 MG PO (08:03)
[2024-04-03] MEDS: metoprolol succinate ER (24 HR) 25 mg Tablet PO (08:03)
[2024-04-03] MEDS: sitagliptin 100 mg Tablet PO (08:03)
[2024-04-03] MEDS: lisinopril 20 mg Tablet PO (08:03)
[2024-04-03] MEDS: hydroCHLOROthiazide 25 mg Tablet PO (08:03)
[2024-04-03 12:00] LABS: Glucose Point of Care 93 mg/dL (70-110)
--- NOTE | 2024-04-03 14:50 | P.NPUPN_ITS ---
Subjective NPU 2 Subjective: 44-year-old male admitted with suicidal ideation with a history of panic attacks and depression along with opioid dependence. Patient reports continued pain in his leg. He reports interest in switch to methadone treatment to manage opiate dependence. He had reported a past history of up to 180 mg of methadone a day as he had used maintenance methadone more than 10 years ago. He had continued to request an increase in his short acting opiate medications. Despite this, he had reported no opiate withdrawal symptoms currently. He reported no side effects from restarting his previous medications. He had endorsed occasional suicidal thoughts. He had reported no cravings for alcohol. Mental Status Exam 2 MSE Comments: This is an obese white male in hospital scrubs with adequate grooming and fair eye contact. There is no evidence of any abnormal involuntary motor movements tics or tremors appreciated. He was cooperative with exam in moderate distress. Speech was normal in rate, rhythm and prosody. Mood was described as depressed. His affect was restricted and mood congruent. Thought process was linear and organized. Thought content: Patient denied suicidal ideation with no plan and denies homicidal ideation. There were no delusions reported or noted, He denied any auditory or visual hallucinations. Attention and concentration appeared intact and memory appeared mostly reliable but none were formally tested. He is alert and oriented x3. Insight, judgment and impulse control are limited versus impaired. He continued to report pain in leg. Vitals/I&O/Wt Last Vital Signs Temp 97.7 F 04/02/24 20:51 Pulse 80 04/03/24 06:00 Resp 18 04/03/24 12:18 BP 121/88 04/03/24 06:00 Pulse Ox 97 04/03/24 06:00 O2 Del Method Room Air 04/01/24 21:07 Weight last 48 hrs Weight 106.141 kg Data NPU 03/31/24 12:57 03/31/24 12:57 A&P Assessment and plan (1) Major depressive disorder: (2) Panic disorder: (3) Alcohol dependence: Qualifiers: Substance use status: in remission Qualified Code(s): F10.21 - Alcohol dependence, in remission (4) Generalized anxiety disorder with panic attacks: (5) Opioid dependence: Plan Patient is a 44-year-old white male admitted with suicidal ideation, worsening depression, hx of opioid dependence, pain issues, and depression recently taken off pain medications abruptly by previous physical rehabilitation facility leading patient to leave there and report suicidality. 1. Continue cymbalta, continue opioids and xanax as previously prescribed. Restart outpatient medications. 2.? Encourage individual, group and milieu therapy 3.? Continue q-15 minute check for safety 4.? Recommend sober living treatment at the highest level of care to which the patient is willing to commit. 5. Seeking discharge directly to MAT program. Referral to methadone program. Involuntary Hold Information 2 96 Hour Hold: 96 Hour Involuntary Admission: No Attestations NPU 2 Medical Necessity Statement*: Inpatient hospitalization is medically necessary and clinically appropriate intervention at this time. We will monitor medications and make changes as indicated. His likely length of stay is 2-4 days. Coding Level of Care Code Acute Code for [facility] Fwd Diagnoses Major depressive disorder F32.9 Panic disorder F41.0 Alcohol dependence in remission F10.21 Substance use status: in remission Generalized anxiety disorder with panic attacks F41.1; F41.0 Opioid dependence F11.20
[2024-04-03 17:43] LABS: Glucose Point of Care 108 mg/dL (70-110)
[2024-04-03] MEDS: atorvastatin 40 mg Tablet PO (20:01)
[2024-04-03 20:06] LABS: Glucose Point of Care 72 mg/dL (70-110)
[2024-04-04] VITALS (7 sets, daily range): BP systolic 120–130; BP diastolic 76–88; PULSE 71–101; RESP 15–18; TEMP 36.6; O2SAT 96–98
[2024-04-04] MEDS: oxyCODONE 5 mg IR Tab/Cap PO ×4 (00:24→20:21)
[2024-04-04] MEDS: sitagliptin 100 mg Tablet PO (08:13)
[2024-04-04] MEDS: duloxetine 30 mg Capsule 90 MG PO (08:13)
[2024-04-04] MEDS: hydroCHLOROthiazide 25 mg Tablet PO (08:13)
[2024-04-04] MEDS: famotidine 20 mg Tablet PO ×2 (08:13→18:02)
[2024-04-04] MEDS: lisinopril 20 mg Tablet PO (08:13)
[2024-04-04] MEDS: ALPRAZolam 0.5 mg Tablet 1 MG PO ×4 (08:14→20:21)
[2024-04-04] MEDS: metoprolol succinate ER (24 HR) 25 mg Tablet PO (08:14)
[2024-04-04] MEDS: metformin 500 mg Tablet 1000 MG PO ×2 (08:14→18:02)
[2024-04-04] MEDS: gabapentin 300 mg Capsule 600 MG PO ×3 (08:14→20:21)
[2024-04-04] MEDS: clopidogrel 75 mg Tablet PO (08:14)
[2024-04-04] MEDS: glimepiride 2 mg Tablet 3 MG PO ×2 (08:14→16:14)
[2024-04-04] MEDS: rivaroxaban 10 mg Tablet 2.5 MG PO ×2 (08:15→18:02)
[2024-04-04 12:05] LABS: Glucose Point of Care 117 mg/dL (70-110)
--- NOTE | 2024-04-04 14:13 | W.PM.NPUPNS ---
Subjective NPU Subjective: 44-year-old male admitted with suicidal ideation with a history of panic attacks and depression along with opioid dependence. The patient had expressed desire to be placed on methadone on an outpatient basis. He had continued to report significant discomfort at this time despite routine short acting opiates prescribed 4 times a day here. The patient was redirectable on the milieu. He had reported depression but stated that he was feeling more hopeful. He had denied any suicidal ideation at this time. Mental Status Exam MSE Comments: This is an obese white male in hospital scrubs with adequate grooming and fair eye contact. There is no evidence of any abnormal involuntary motor movements tics or tremors appreciated. He was cooperative with exam in moderate distress. Speech was normal in rate, rhythm and prosody. Mood was described as a little better. His affect was restricted and mood congruent. Thought process was linear and organized. Thought content: Patient denied suicidal ideation with no plan and denies homicidal ideation. There were no delusions reported or noted, He denied any auditory or visual hallucinations. Attention and concentration appeared intact and memory appeared mostly reliable but none were formally tested. He is alert and oriented x3. Insight, judgment and impulse control are limited versus impaired. He continued to report pain in leg with an antalgic gait. Vitals/I&O/Wt Last Vital Signs Temp 97.8 F 04/04/24 06:00 Pulse 71 04/04/24 06:00 Resp 16 04/04/24 12:03 BP 130/76 04/04/24 06:00 Pulse Ox 96 04/04/24 12:03 O2 Del Method Room Air 04/04/24 06:00 Data NPU 03/31/24 12:57 03/31/24 12:57 A&P Assessment and plan (1) Major depressive disorder: (2) Panic disorder: (3) Alcohol dependence: Qualifiers: Substance use status: in remission Qualified Code(s): F10.21 - Alcohol dependence, in remission (4) Generalized anxiety disorder with panic attacks: (5) Opioid dependence: Plan Patient is a 44-year-old white male admitted with suicidal ideation, worsening depression, hx of opioid dependence, pain issues, and depression recently taken off pain medications abruptly by previous physical rehabilitation facility leading patient to leave there and report suicidality. 1. Continue cymbalta, continue opioids and xanax as previously prescribed. Restart outpatient medications. 2.? Encourage individual, group and milieu therapy 3.? Continue q-15 minute check for safety 4.? Recommend sober living treatment at the highest level of care to which the patient is willing to commit. 5. Methadone induction appointment at [facility] [place] to be scheduled on early AM with likely discharge tommorow. Involuntary Hold Information 96 Hour Hold: 96 Hour Involuntary Admission: No Attestations NPU Medical Necessity Statement*: Inpatient hospitalization is medically necessary and clinically appropriate intervention at this time. We will monitor medications and make changes as indicated. His likely length of stay is 2-4 days. Coding Level of Care Code Acute Code for [facility] Fwd Diagnoses Major depressive disorder F32.9 Panic disorder F41.0 Alcohol dependence in remission F10.21 Substance use status: in remission Generalized anxiety disorder with panic attacks F41.1; F41.0 Opioid dependence F11.20
[2024-04-04 15:17] LABS: Glucose Point of Care 135 mg/dL (70-110)
[2024-04-04] MEDS: ibuprofen 600 mg Tablet PO (16:13)
[2024-04-04 17:16] LABS: Glucose Point of Care 90 mg/dL (70-110)
[2024-04-04] MEDS: diphenhydrAMINE 50 mg Capsule PO (17:58)
[2024-04-04] MEDS: atorvastatin 40 mg Tablet PO (20:21)
[2024-04-04 20:54] LABS: Glucose Point of Care 93 mg/dL (70-110)
[2024-04-05 01:54] VITALS: RESP 16
[2024-04-05] MEDS: oxyCODONE 5 mg IR Tab/Cap PO ×4 (01:54→16:17)
[2024-04-05 06:00] VITALS: BP 124/83; PULSE 85; RESP 14; TEMP 36.5; O2SAT 96
[2024-04-05 07:50] LABS: Glucose Point of Care 114 mg/dL (70-110)
[2024-04-05] MEDS: clopidogrel 75 mg Tablet PO (08:07)
[2024-04-05] MEDS: ALPRAZolam 0.5 mg Tablet 1 MG PO ×3 (08:07→15:00)
[2024-04-05] MEDS: sitagliptin 100 mg Tablet PO (08:07)
[2024-04-05] MEDS: hydroCHLOROthiazide 25 mg Tablet PO (08:07)
[2024-04-05] MEDS: metoprolol succinate ER (24 HR) 25 mg Tablet PO (08:07)
[2024-04-05] MEDS: glimepiride 2 mg Tablet 3 MG PO ×2 (08:08→17:05)
[2024-04-05] MEDS: lisinopril 20 mg Tablet PO (08:08)
[2024-04-05] MEDS: gabapentin 300 mg Capsule 600 MG PO ×2 (08:08→15:00)
[2024-04-05] MEDS: duloxetine 30 mg Capsule 90 MG PO (08:08)
[2024-04-05] MEDS: famotidine 20 mg Tablet PO ×2 (08:08→17:04)
[2024-04-05] MEDS: metformin 500 mg Tablet 1000 MG PO ×2 (08:08→17:04)
[2024-04-05] MEDS: rivaroxaban 10 mg Tablet 2.5 MG PO ×2 (08:09→17:04)
[2024-04-05 08:15] VITALS: RESP 16; O2SAT 96
--- NOTE | 2024-04-05 12:02 | P.NPUDS_ITS ---
Diagnoses at Discharge Discharge Diagnosis (1) Major depressive disorder: Status: Resolved (2) Panic disorder: Status: Inactive (3) Alcohol dependence: Status: Inactive Qualifiers: Substance use status: in remission Qualified Code(s): F10.21 - Alcohol dependence, in remission (4) Generalized anxiety disorder with panic attacks: Status: Resolved (5) Opioid dependence: Status: Acute Reason for Visit Reason for Visit: si Brief History: History of Present Illness Rudy Crawford is a 44 year old male with a history of multiple inpatient hospitalizations most recently discharged from [facility] on 03/17/2024. He had been hospitalized at that time and was being sent to a rehabilitation facility for continued treatment of a graft that was performed here by Dr. Moss and the patient needed to receive further physical rehabilitation. The patient reports that he had been at the facility for 1 week and reports that he had been placed on Xanax but that all of his pain medications had been discontinued immediately after arriving there. He reports that his active pain issues and opiate withdrawal issues have led the patient to become suicidal. He reports that he had left the rehabilitation facility AGAINST MEDICAL ADVICE and had unsurprisingly been prescribed no medications. He reports that he has been feeling more depressed and continues to complain of intractable leg pain. He reports no other substantiative changes since his last encounter here less than 2 weeks ago. Current medications: Cymbalta 90 mg daily, famotidine, Xarelto, lisinopril, glimepiride, gabapentin, Plavix, metoprolol, Januvia, Xanax 1 mg 4 times daily, Lipitor Excerpt from NPU admission on 02/26/24 provided below: History of Present Illness Rudy Crawford is a 44 year old male with a history of multiple inpatient psychiatric hospitalizations mostly recently transferred to [facility] in [place] in November for a surgical intervention in his lower left leg. The patient had reported that he had been discharged from [facility] on 02/23/2024 without his pain medicines. The patient had reported that he had become upset and had thrown away his discharge plan that had included how to treat his lower left leg wound. He had presented on 02/25/2024 to the emergency department with suicidal joselo ation. He reports that he has had recurring hospitalizations over the past 2 months for his complications with his lower left leg as he had reported having a staph infection following a venous graft. He reports having infrequent thoughts of suicide. He had reported increased anxiety as he states that he has not been on his pain medication or his Xanax for the past 3 days. He reports that he has been sleeping poorly. He endorses some feelings of hopelessness. He has reported past history of alcohol abuse but reports that he has been sober with no alcohol use in over 5 months. He reports no substantiative changes since his last hospitalization other than an apparent switch from Klonopin to Xanax per patient. Current medications: Atorvastatin, aspirin, betamethasone, Plavix, Cymbalta, gabapentin, hydroxyzine, metformin, metoprolol, lisinopril Excerpt from Discharge Summary [facility]PU on 12/08/23 Discharge Diagnosis (1) Claudication in peripheral vascular disease: Status: Acute Permanent problem details: Since 2017 with walking 100 yards or less (2) Peripheral vascular disease: Status: Acute (3) Hyperlipemia: Status: Acute (4) Prediabetes: Status: Acute (5) Hypertension: Status: Acute Qualifiers: Hypertension type: primary hypertension Qualified Code(s): I10 - Essential (primary) hypertension Reason for Visit SI Brief History: History of Present Illness Rudy Crawford is a 43 year old male who presents with suicidal ideation to the emergency department stating that he was depressed and tired and significant pain. He reports that he has not been using alcohol. He does report that he had missed his appointment for his surgeon to manage his peripheral vascular disease yesterday. He reported that he had [facility] but was kicked out because he had not given up all of his medications. He reports that he has not been abusing any alcohol nor has you been abusing his Klonopin. He has reported that he continues to be tired of being homeless and states that he has had thoughts of hurting himself with plans to run into traffic. He had reported having problems with memory and concentration. He reports chronic pain issues in his back as well. The patient had stated that he had tried to remain hopeful about his girlfriend finding him in her place but believes that this will not be available until December. He reports low energy and low motivation. He reports having more frequent crying episodes. He states that his medications for depression had not been helpful so he had discontinued them. He reports no substantial changes since his last hospitalization. NPU Discharge Summary from 11/15/23 Diagnoses at Discharge Discharge Diagnosis (1) Major depressive disorder: Sta tus: Acute (2) Panic disorder: Status: Inacti ve (3) Alcohol dependence: Status: Ac [place] (4) Generalized anxiety disorder with pa emily attacks: Status: Acute Reason for Visit SI Brief History: History of Present Illness Rudy Crawford is a 43 year old male Admitted with suicidal ideation after presenting to the emergency department stating that he wished to jump out in front of a car. The patient had reported that he had been in a psychiatric facility at [facility] for the past week and was discharged on on new psychiatric medications. He had complained that he had not been able to urinate since starting his Seroquel. He reports that he has been more depressed currently. He reports that he has continued panic attacks. He reports that he has continued feelings of hopelessness and worthlessness. He reports that he has not used any illicit drugs or alcohol in over 3 months now. He reports that his Klonopin has been lowered from 6 mg/day to 3 mg/day over the last 6 weeks. He reports that he has been attempting to work but states that it has not been successful recently. He reports that he was previously staying in a skilled nursing in [place] but states that he has been homeless for weeks. Inpatient psychiatric history: Multiple inpatient stays over the last year. Outpatient psychiatric history: He has recently started with outpatient therapy and medication management at the [facility] [place]. Current medications: Klonopin 1 mg 3 times a day, Plavix 75 mg daily, Cymbalta 60 mg twice a day, Lamictal 75 mg daily, lisinopril, nitroglycerin, propranolol 20 mg 3 times a day, Seroquel 300 mg at night, hydrocodone 1 tablet 4 times a day for pain Medical history: As previous with history of prediabetes, erectile dysfunction, left shoulder pain, peripheral vascular disease with a history of carotid Stenosis, 11/10/23:Doppler of the left lower extremity showed complete occlusion of the distal superficial femoral artery Surgical history: Rotator cuff surgery Allergies: codeine, toradol, trazodone Drug and alcohol hx: sober off alcohol for 4 months, Social Hx: see below, no new changes. Discharge summary from NPU on 08/18/23 Diagnoses at Discharge Discharge Diagnosis (1) Major depressive disorder: Sta tus: Acute(2) Panic disorder: Status: Inactive(3) Alcohol dependence: Status: Acute(4) Generalized anxiety disorder with panic attacks: Status: Acute Reason for Visit Homicidal Brief History: History of Present Illness Rudy Crawford is a 43 year old male who presented to the emergency department with the following report: Chief Complaint: Psychiatric Symptoms Stated Complaint: Homicidal Time Seen by Provider: 08/13/23 14:05 Source: patient Mode of arrival: ambulatory Limitations: no limitations History of Present Illness: ? Patient is a 43-year-old male presents to ED today stating he is homicidal towards drug addicts and meth heads .? He states if one more meth head talks to him or knocks on his door then he is going to hurt them. No specific plan. Denies suicidal ideations. No psychosis symptoms. Recently admitted to NPU earlier this month. Reports being drug free for 8 years. Does have a history of alcohol abuse. ? MD complaint: other (homicidal ideation) Onset (ago): day(s) Duration: constant Relieving factors: none Context: significant life stressor Associated psychiatric symptoms: homicidal ideation Associated symptoms: Reports homicidal ideation; Deny auditory hallucinations, visual hallucinations, depression or suicidal ideation Treatments prior to arrival: none He was admitted to the neuropsychiatric unit for definitive treatment of those issues.? He is known to this specifications writer through past inpatient hospitalization.? His last psychiatric hospitalization ended 07/30/2023 and an excerpt of that summary is included below for context and the fact that there have been no substantive changes.? It is noteworthy that a week later on 08/06/2023 he was admitted to the medical unit where some cardiac disease was noted and plans for continued follow-up were executed.? He was discharged on 08/12/2023 from that and he returns now reporting being overwhelmed at home secondary to meth heads knocking on his door etc.? He endorsed homicidality towards these individuals and we had a long discussion about the legal implications of him acting out in an aggressive way.? We also had a long discussion about concerns related to malingering as well as concerns that this may have something to do with him not having enough Klonopin available even though he should have extra given the hospitalization.? He categorically denies that this has anything to do with the Klonopin.? We discussed moving forward with a plan to taper the Klonopin by 0.5 mg every 2 weeks such that he will be on 3-1/2 mg total daily for the next 2 weeks.? We discussed this being a short hospitalization and a plan for him to reconsider where he is living if he can get along with the people there. Per his 07/30/2023 [facility] inpatient psychiatric discharge summary: Discharge Diagnosis (1) Major depressive disorder:? ? ? Stat us: Acute(2) Panic disorder:? ? ? Status: Inactive(3) Alcohol dependence:? ? ? Status: Acute(4) Generalized anxiety disorder with panic attacks:? ? ? Status: Acute Reason for Visit Reason for Visit: ? psych eval? Brief History: History of Present Illness Rudy Crawford is a 43 year old male recently discharged last month from the neuropsychiatric unit who presented to the emergency room complaining of suicidal ideation and continued depression.? The patient had stated that he had been discharged from [facility] yesterday and reports that over the past 4 days his Klonopin had been decreased from 6 mg a day to 2 mg a day within a short period of time.? He reports some irritability and agitation since this reduction.? He had denied having used alcohol for the past few weeks.? He reports that he has been homeless.? He had reported that he had been struggling with panic attacks as well.? Patient had stated that he has been feeling more hopeless and worthless.? He reports sleep continuity disruption.? He had reported that he was hopeful of finding a skilled nursing in the nearby area.? He reports no acute changes otherwise and stated above. Current medications: gabapentin, aspirin, lisinopril, propranolol, quetiapine, trazodone, klonopin Previous discharge summary from NPU on 05/23/23 History of Present Illness Rudy Crawford is a 43 year old male who presented to the emergency department with the following report: Chief Complaint: Psychiatric Symptoms Stated Complaint: mag Time Seen by Provider: 05/22/23 16:58 History of Present Illness: Presents to the ER with complaints of suicidal ideations.? Patient said the world just coming down around him.? Last week patient lost his job, got really really drunk and decided to check himself into rehab down at [place] spent 3 days they are in when he got out felt that it he need just needed more time to help.? Patient is having bad thoughts of suicide.? Patient was on a bridge today and thought of jumping.? Since patient lost his job and is planning on moving in with his girlfriend and having major life stressors. He was admitted to the neuropsychiatric unit for the definitive treatment of those issues.? Patient presented today reporting that things are very stressed he reports that his anxiety is out of control and that he lost his job.? He reports that he is temporarily homeless and that he is moving into a new place next week with some woman that he has a relationship with.? He endorsed having suicidal thoughts but reports those have diminished.? He endorses a history of having anxiety helps with Klonopin.? He reports that his anxiety gets so [id number] that he has chest pains and feels like he might have a heart attack.? He endorses maybe having a cardiac history.? We reviewed his previous hospitalization from August of last year and an excerpt of that stay is included below for context and his report of limited/no substantive changes since that today.? Outside of his current living arrangement issues.? We discussed possible medications for his anxiety and he was very focused on not changing the Klonopin which we discussed that 2 mg p.o. 3 times daily is a very high dose.? He reports it has been very effective but cannot explain why he was always anxious if it is very effective.? He is not interested in any medications like SSRIs etc. reporting he knows what works.? He had initially talked about leaving AMA but then reported he would stay but he seemed quite ambivalent about this stay overall. Per his 09/25/2022 [facility] inpatient psychiatric discharge summary: Discharge Diagnosis (1) Panic disorder:? ? ? Status: Acute(2 ) Alcohol dependence:? ? ? Status: Acute(3) Benzodiazepine abuse:? ? ? Status: Acute Reason for Visit Reason for Visit: ? Suicidal ideation? Brief History: History of Present Illness Rudy Crawford is a 42 year old male who had presented to his primary care nurse on 09/22/2020 2 in the morning requesting treatment for alcohol withdrawal.? He reports that he wishes to stop his consumption of alcohol and stated that he was having withdrawal symptoms as he had reported having last consumed alcohol on the night of 09/21/2022.? He had reported having consumed a gallon of fireball whiskey and reports having consumed a case of beer on a daily basis.? He reports his consumption of alcohol has been increasing since he was taken abruptly off of his prescribed Klonopin of 2 mg/day.? He had reported a previous history of panic attacks and considerable anxiety that had been worsening his cardiac problems.? He states that he had not been prescribed Klonopin for over a month.? He endorses a past history of withdrawal seizures although it is uncertain as to whether that was associated with withdrawal from benzodiazepines or alcohol.? He had acknowledged no depression but states that his panic attacks have been more frequent over the past few months.? He reports an extended history of chest pain shortness of breath difficulty swallowing and feeling like he is going to .? He reports that these panic attacks occur without triggers frequently. Current medications: gabapentin 300mg bid, hydrochlorothiazide/lisinopril: 25mg/20mg, hydroxyzine 25mg bid Previous [facility] on 06/22/2022 at [facility]: Rudy Crawford is a 42 year old single white male with a history of panic attacks coronary artery disease and hypertension who reports to the emergency department with suicidal ideation with a plan to jump off of a bridge.? He had reported that he had been feeling more depressed and reported uncontrolled anxiety over the past 3 months since he had ran out of his Klonopin 1 mg twice a day.? He had reported that he has had chronic panic attacks for many years with unknown triggered panic attacks lasting approximately 40 minutes with associated chest pain shortness of breath numbing and tingling in his fingers and difficulty with breathing.? He reports that his panic attacks have led him to the emergency department multiple times with complaints of chest pain.? He reports that he had a heart attack a few years ago and he has had these panic attacks since that time.? The patient reports being burdened by anxiety over the past few months.? He reports that he had been unable to receive his Klonopin in [place], [place] where he had moved.? He reports that he had recently moved back to the area and had not been able to see his primary care physician yet to get back on his Klonopin.? The patient had reported diminished energy low motivation and depressed mood for the past month.? He had endorsed having suicidal thoughts.? He denied any psychotic symptoms.? He denied any history of manic symptoms.? He had reported a long history of chronic worry since his heart attack occurred. Past psychiatric history: Patient has a history of 1 inpatient hospitalization 2 years ago for suicidal ideation at [facility] in [facility].? He had reported no history of psychotherapy but reports a history of having been treated for panic attacks and depression with medication trials on Lexapro and xanax.? He also reported a history of having been treated for opioid abuse with a history of having been in methadone clinic for a few years having last used methadone 6 years ago. Medical history: Chronic lower back pain peripheral vascular disease with claudication history of carotid stenosis history of hypertension, HTN Surgical history he has a history of placement of stent in the coronary artery he has a history of repair of a torn rotator cuff Allergies: Toradol Medications: Klonopin 1 mg twice a day aspirin 81 mg in the morning clonidine 0.1 mg twice a day nitroglycerin as needed Drug and alcohol history: He reports having begun use of opiates at the age of [age].? He had reported last use of opiates for treating pain few days ago.? He had reported a past history of methadone treatment but reports no substance abuse inpatient or rehabilitation in the past.? He had reported a past history of alcohol abuse but reports that he has not been drinking recently.? He denies any history of benzodiazepine misuse. Family psychiatric history: alcohol abuse-father Social History: Patient was born and raised in [facility].? He is currently living in [place] [facility].? He has never been and has no children.? He was raised by his biological parents and is the youngest of 5.? He had graduated high school in 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 He denies any significant history of trauma.? He denies any history of legal issues. Update: Patient had endorsed recently having been hospitalized at [facility] in july in an attempt to help with detoxification off of benzodiazepines and alcohol.? He reports that he had left and intensive inpatient rehabilitation facility in [place] in early August 2022.? His living situation is also changed he is currently staying with a friend near [facility]. Hospital Course He slowly acclimated to the individual, group and milieu therapies provided.? A growing theme in his visits seems to be his Klonopin.? His last hospitalization he came in left on the same day in the drive for leaving appeared to be Klonopin.? He began to leave [place] at 1 point and the issue of note was Klonopin.? Prior to discharge this specifications writer reached out to his current prescriber who identified that he would like him to be on the lower dose but seemed very hesitant to be the non cdl driver of that change.? We agreed to drop him to 1 mg p.o. 4 times daily from the 2 mg p.o. 3 times daily.? He was given a 2-week prescription that was going to be active in 2 weeks as he left with 56 1 mg tablets that would serve him for 4 times daily for the next 2 weeks.? Therefore he had a month of medication in his outpatient provider agreed that he would see him and consider dropping it down to 3.5 mg daily otherwise he refused the Vivitrol injection reporting that he still wants to drink some and we identified that being an issue like Klonopin is a bad idea.? He was also discharged on Celexa 20 mg daily Neurontin 600 mg p.o. twice daily.? He was working with the social work team for possible treatment options but was very resistant to the options that were identified.? He had modest improvement and he was able to contract for safety outside of the hospital prior to discharge.? During the hospitalization, patient had routine laboratory studies which were within normal limits except for few outliers.? Additionally there was a general medical evaluation which was also within normal limits and revealed no new acute processes. ?At the time of discharge, he denied psychosis or lethality.? Mood and anxiety were well managed.? Patient endorsed a plan to avoid all drugs of abuse and follow-up with the aftercare recommendations of the treatment team.? Patient was evaluated and deemed to be absent credible lethality, and achieved a maximum benefit from an inpatient hospitalization, so was discharged. Hospital Course Hospital Course During the hospitalization, the patient had routine laboratory studies which were within normal limits except for a few outliers.? Additionally, there was a general medical evaluation which was also within normal limits and revealed no new acute processes.? At the time of discharge, lethality was denied and psychosis was resolving.? Mood and anxiety were well managed.? The patient endorsed a plan to avoid all drugs of abuse and follow up with the aftercare recommendations of the treatment team.? The patient was evaluated and deemed to be absent credible lethality and had achieved the maximum benefit from an inpatient hospitalization, and so was discharged.? Seroquel was discontinued due to concerns that it worsened the patient's urinary retention. Another CV arterial duplex of the lower extremity revealed arterial occlusion and it was similar to a recent study and the patient was planning on following up with his Vascular Surgeon Dr. Garett Benton as previously done. Hospital Course Hospital Course During the hospitalization, the patient had routine laboratory studies which were within normal limits except for a few outliers.? Additionally, there was a general medical evaluation which was also within normal limits and revealed no new acute processes. ?At the time of discharge, lethality was denied and psychosis was resolving.? Mood and anxiety were well managed.? The patient endorsed a plan to avoid all drugs of abuse and follow up with the aftercare recommendations of the treatment team.? The patient was evaluated and deemed to be absent credible lethality and had achieved the maximum benefit from an inpatient hospitalization, and so was discharged. Patient was restarted on his medications. He was placed on short acting opioids to manage pain and he had revealed a history of opiate dependence and it was recognized that the patient needed to be started on methadone for treatment of opiate dependence with the given complexity of his pain issues. He was agreeable to immediate transition to outpatient treatment with daily methadone for management of opiate depe ndence. Involuntary Hold Information 96 Hour Hold: 96 Hour Involuntary Admission: No Mental Status Exam MSE Comments: This is an obese white male in hospital scrubs with adequate grooming and fair eye contact. There is no evidence of any abnormal involuntary motor movements tics or tremors appreciated. He was cooperative with exam in moderate distress. Speech was normal in rate, rhythm and prosody. Mood was described as better. His affect remained restricted. Thought process was linear and organized. Thought content: Patient denied suicidal ideation with no plan and denies homicidal ideation. There were no delusions reported or noted, He denied any auditory or visual hallucinations. Attention and concentration appeared intact and memory appeared mostly reliable but none were formally tested. He is alert and oriented x3. Insight was limited. Judgment and impulse control are fair on discharge. He continued to report pain in leg with an antalgic gait. Discharge Data Studies Completed and Pending: Completed Studies During Hospitalization Category Date Time Status US venous duplex lower extremity LT [CV venous duplex Ultrasound 03/31/24 12:53 [place] [id number]] Stat Laboratory Results WBC 12.31 10^3/uL (3. 29-11.43) H 03/31/24 12:57 RBC 4.99 10^6/uL (3.8 5-5.65) 03/31/24 12:57 Hgb 13.60 g/dL (11.27 -16.99) 03/31/24 12:57 Hct 42.2 % (37-53) 03/31/24 12:57 MCV 84.6 fl (82-101) 03/31/24 12:57 MCH 27.3 pg (27-33) 03/31/24 12:57 MCHC 32.2 g/dL (30-55) 03/31/24 12:57 RDW 14.6 % (12.1-15.1 ) 03/31/24 12:57 Plt Count 356 10^3/cmm (157 -399) 03/31/24 12:57 MPV 8.1 fL (7.4-10.4) 03/31/24 12:57 Neut % (Auto) 61.0 % 03/31/24 12:57 Lymph % (Auto) 28.3 % 03/31/24 12:57 [place] % (Auto) 7.0 % 03/31/24 12:57 Eos % (Auto) 2.6 % 03/31/24 12:57 Baso % (Auto) 0.5 % 03/31/24 12:57 Neut # (Auto) 7.51 10^3/uL (1.8 -7.7) 03/31/24 12:57 Lymph # (Auto) 3.5 10^3/uL (0.8- 4.8) 03/31/24 12:57 [place] # (Auto) 0.9 10^3/uL (0.2- 0.9) 03/31/24 12:57 Eos # (Auto) 0.3 10^3/uL (0.0- 0.8) 03/31/24 12:57 Baso # (Auto) 0.1 10^3/uL (0.0- 0.1) 03/31/24 12:57 Nucleated RBC % (a uto) 0 % 03/31/24 12:57 Nucleated RBCs # 0.0 /100WBC 03/31/24 12:57 PT 14.60 SECONDS (12 .1-14.9) 03/31/24 12:57 INR 1.10 (0.8-1.2) 03/31/24 12:57 Sodium 137 mmol/L (136-1 45) 03/31/24 12:57 Potassium 3.5 mmol/L (3.5-5 .1) 03/31/24 12:57 Chloride 102 mmol/L (98-10 7) 03/31/24 12:57 Carbon Dioxide 22 mmol/L (22-29) 03/31/24 12:57 Anion Gap 16.5 (5-19) 03/31/24 12:57 BUN 5 mg/dL (6-20) L 03/31/24 12:57 Creatinine 0.6 mg/dL (0.7-1. 2) L 03/31/24 12:57 GFR Calculation 145.7 mL/min (90- 130) H 03/31/24 12:57 Glucose 94 mg/dL (65-115) 03/31/24 12:57 POC Glucose 114 mg/dL (70-110 ) H 04/05/24 07:46 Calculated Osmolal ity 281 mOsm/kg (285- 295) L 03/31/24 12:57 Calcium 9.1 mg/dL (8.5-10 .5) 03/31/24 12:57 Total Bilirubin 0.2 mg/dL (0.15-1 .2) 03/31/24 12:57 AST 23 U/L (0-40) 03/31/24 12:57 ALT 25 U/L (0-41) 03/31/24 12:57 Alkaline Phosphata se 98 U/L (40-130) 03/31/24 12:57 Total Protein 7.2 g/dL (6.6-8.7 ) 03/31/24 12:57 Albumin 4.1 g/dL (3.5-5.2 ) 03/31/24 12:57 Globulin 3.1 g/dL (1.3-4.6 ) 03/31/24 12:57 Salicylates < 0.3 mg/dL (3-10 ) L 03/31/24 12:57 Urine Opiates Scre en Positive ng/mL (N egative) H 04/02/24 10:45 Acetaminophen < 5.0 ug/mL (10-3 0) L 03/31/24 12:57 Ur Barbiturates Sc reen Negative ng/mL (N egative) 04/02/24 10:45 Ur Phencyclidine S crn Negative ng/mL (N egative) 04/02/24 10:45 Ur Amphetamines Sc reen Negative ng/mL (N egative) 04/02/24 10:45 U Benzodiazepines Scrn Positive ng/mL (N egative) H 04/02/24 10:45 Urine Cocaine Scre en Negative ng/mL (N egative) 04/02/24 10:45 U Marijuana (THC) Screen Negative ng/mL (N egative) 04/02/24 10:45 Ethyl Alcohol < 10 mg/dL (0-10) 03/31/24 12:57 Vitals: Last Vital Signs Temp 97.7 F 04/05/24 06:00 Pulse 85 04/05/24 06:00 Resp 16 04/05/24 08:15 BP 124/83 04/05/24 06:00 Pulse Ox 96 04/05/24 08:15 O2 Del Method Room Air 04/05/24 06:00 Discharge Plan Discharge Patient Disposition: Home Condition: Stable Prescriptions: Continued atorvastatin 40 mg tablet 40 mg PO BEDTIME Qty: 30 1RF metformin 500 mg Tablet 1,000 mg PO BIDWM Qty: 120 1RF alprazolam 1 mg tablet 1 mg PO QID 15 Days Qty: 60 1RF Plavix 75 mg tablet 75 mg PO DAILY Qty: 30 1RF glimepiride 2 mg Tablet 3 mg PO BIDAC Qty: 90 1RF famotidine 20 mg Tablet 20 mg PO BID 30 Days Qty: 60 1RF Nitrostat 0.4 mg tablet, sublingual 0.4 mg sublingual PRN PRN (Reason: Chest Pain) Qty: 30 1RF lisinopril-hydrochlorothiazide 20-25 mg tablet 1 tab PO DAILY Qty: 30 1RF metoprolol succinate 25 mg tablet extended release 24 hr 25 mg PO DAILY Qty: 30 1RF Januvia 100 mg Tablet 100 mg PO DAILY Qty: 30 1RF Xarelto 2.5 mg Tablet 2.5 mg PO BID Qty: 60 1RF Changed gabapentin 600 mg tablet 600 mg PO TID Qty: 90 1RF duloxetine 30 mg capsule,delayed release(DR/EC) 90 mg PO DAILY Qty: 90 1RF Discontinued naloxone 0.4 mg/mL Solution 0.4 mg SUBCUT Q3M PRN (Reason: OPIATE OVERDOSE) Rx Instructions: NTExceed 10 mg total dose/episode Discharge Orders: Discharge Order (Routine); Ordered 04/05/24 Ordered By: Keny Andrews Referrals: [facility] [Other] - 04/06/24 6:00 am (Initial appointment on 04/06/24 @ 6:00 am and then will see a doctor on 04/07/24 and at initial appointment they will give you the time. Bring Valid ID and insurance card. ) [facility] [Outside] Nilesh Hutchinson MD [Primary Care Provider] - Discharge Diet: Usual diet Discharge Activity: Resume usual activity Patient Instructions: Opioid Safety Plan of Treatment: Note to [facility] treatment center-Rudy has a history of opioid dependence previously on methadone for several years up to dose of 180mg/daily. He has been prescribed oxycodone IR q4 hours for pain with opioid use for several months. His last dose of oxycodone IR 5mg was given on the night of 04/05/24. The plan is to be transitioned immediately the next morning to Methadone with 6AM appointment at [facility] for methadone induction. Discharge Attestations NPU Time Spent in Discharge Care*: less than 30 min Specific Discharge Activities: Specific discharge activities: educating patient and discussing with rehabilitation caseworker/social workers/dc planners Coding Level of Care Code Acute Code for [facility] Fwd Diagnoses Major depressive disorder F32.9 Panic disorder F41.0 Alcohol dependence in remission F10.21 Substance use status: in remission Generalized anxiety disorder with panic attacks F41.1; F41.0 Opioid dependence F11.20
[2024-04-05 12:17] VITALS: RESP 16; O2SAT 99
[2024-04-05 13:57] VITALS: BP 112/69; PULSE 85; RESP 16; TEMP 36.6; O2SAT 94
[2024-04-05 16:23] VITALS: BP 112/69; PULSE 85; RESP 16; TEMP 36.6; O2SAT 94
== END 2024-04-05 19:05 | disposition home or self-care (01) | DRG 881 ==
LOC: ER 13:15 → NP 14:14
PROVIDERS: Emergency Medicine; Admitting Provider Psychiatry & Neurology Psychiatry; Emergency Provider Physician Assistant; PCP Family Medicine Adult Medicine; Visit Provider Psychiatry & Neurology Psychiatry
DX: F32.9 Major depressive disorder, single episode, unspecified (principal); R45.851 Suicidal ideations; F11.20 Opioid dependence, uncomplicated; F41.0 Panic disorder [episodic paroxysmal anxiety]; F41.1 Generalized anxiety disorder; F10.21 Alcohol dependence, in remission; M79.605 Pain in left leg; G89.29 Other chronic pain; R73.03 Prediabetes; Z79.84 Long term (current) use of oral hypoglycemic drugs; I10 Essential (primary) hypertension
CPT/HCPCS: 36415; 36416; 80053; 80306; 80307; 82962; 85025; 85610; 93971; 96372; 97150; 97165; 99285; J2060; J2270; Q0163

== ENCOUNTER 2024-05-22 13:52 | Emergency (ER) | payer MEDICAID, SELFPAY ==
[2024-05-22 14:05] VITALS: BP 154/115; PULSE 91; RESP 16; TEMP 36.8; O2SAT 98
--- NOTE | 2024-05-22 14:09 | ECG_ITS ---
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 Measurements Intervals [place] Rate: 84 P: 7 AK: 157 QRS: 53 QRSD: 116 T: 56 QT: 372 QTc: 441 Interpretive Statements SINUS RHYTHM INCOMPLETE RIGHT BUNDLE BRANCH BLOCK [90+ ms QRS DURATION, TERMINAL R IN V1/V2, 40+ ms S IN I/aVL/V4/V5/V6] Compared to ECG 03/08/2024 17:21:34 Incomplete right bundle-branch block now present T-wave abnormality no longer present Electronically Signed On 05-22-2024 22:48:36 CDT by Darya Clark M.D. [id number]
--- NOTE | 2024-05-22 15:59 | XRR_ITS ---
PROCEDURE INFORMATION: Exam: XR Chest Exam date and time: 05/22/2024 4:04 PM Age: 44 years old Clinical indication: Pain; Angina pectoris; Additional info: Chest pain TECHNIQUE: Imaging protocol: Radiologic exam of the chest. Views: 1 view. COMPARISON: CT angio chest PE protcl [id number] 11/24/2023 10:57 AM FINDINGS: Lungs: Unremarkable. No consolidation or mass. Pleural spaces: Unremarkable. No pleural effusion. No pneumothorax. Heart/Mediastinum: Unremarkable. No cardiomegaly. Bones/joints: Unremarkable. XR/XR chest 1V portable [id number] IMPRESSION: No acute findings.
[2024-05-22 16:00] VITALS: BP 152/106; PULSE 82; O2SAT 97
[2024-05-22] MEDS: ALPRAZolam 0.5 mg Tablet 2 MG PO (16:19)
[2024-05-22 16:28] LABS: Basophils # 0.1 10^3/uL (0.0-0.1); Basophils % 0.7 %; Eosinophils # 0.1 10^3/uL (0.0-0.8); Eosinophils % 0.7 %; Hematocrit 46.4 % (37-53); Lymphocytes # 3.1 10^3/uL (0.8-4.8); Lymphocytes % 28.9 %; Mean Corpuscular HGB Conc 32.8 g/dL (30-55); Mean Corpuscular Hemoglobin 28.1 pg (27-33); Mean Corpuscular Volume 85.9 fl (82-101); Mean Platelet Volume 8.4 fL (7.4-10.4); Monocytes # 0.7 10^3/uL (0.2-0.9); Monocytes % 6.3 %; Neutrophils # 6.83 10^3/uL (1.8-7.7); Nucleated Red Blood Cells % 0 %; Platelet Count 324 10^3/cmm (157-399); Red Cell Distribution Width 15.1 % (12.1-15.1); White Blood Count 10.84 10^3/uL (3.29-11.43)
[2024-05-22 16:48] LABS: Troponin(5th) Baseline 8 ng/L (0-15)
[2024-05-22 16:49] LABS: Alanine Aminotransferase 47 U/L (0-41); Albumin Level 4.1 g/dL (3.5-5.2); Alkaline Phosphatase 112 U/L (40-130); Anion Gap 17.6 (5-19); Aspartate Amino Transferase 26 U/L (0-40); Blood Urea Nitrogen 10 mg/dL (6-20); Calcium 8.9 mg/dL (8.5-10.5); Carbon Dioxide 21 mmol/L (22-29); Chloride 102 mmol/L (98-107); Creatinine Clr Calc Pharmacy 156.1506; Glucose 212 mg/dL (65-115); Osmolality Calculated 289 mOsm/kg (285-295); Potassium 3.6 mmol/L (3.5-5.1); Sodium 137 mmol/L (136-145); Total Bilirubin 0.4 mg/dL (0.15-1.2); Total Protein 7.1 g/dL (6.6-8.7)
--- NOTE | 2024-05-22 18:00 | ECG_ITS ---
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 Measurements Intervals [place] Rate: 85 P: 19 CA: 172 QRS: 52 QRSD: 110 T: 67 QT: 379 QTc: 453 Interpretive Statements SINUS RHYTHM INCOMPLETE RIGHT BUNDLE BRANCH BLOCK [90+ ms QRS DURATION, TERMINAL R IN V1/V2, 40+ ms S IN I/aVL/V4/V5/V6] Compared to ECG 05/22/2024 13:56:46 No significant changes Electronically Signed On 05-23-2024 8:28:42 CDT by Michael Cabrera M.D. [id number]
[2024-05-22 18:11] VITALS: BP 145/118; PULSE 78; O2SAT 95
[2024-05-22 18:37] LABS: Troponin 5 2HR 7.35 ng/L (0-15)
[2024-05-22 18:38] LABS: Troponin 5 2HR Delta -0.65 ABS# (0-10)
--- NOTE | 2024-05-22 18:57 | ED_ITS ---
HPI - Chest Pain 2 General: Chief Complaint: Chest Pain Stated Complaint: chest pains Time Seen by Provider: 05/22/24 15:41 History of Present Illness: Patient presents with complaint of shortness of breath and anxiety and chest pain that has been ongoing for the past couple days after he is run out of his Xanax. He normally takes 2 mg of Xanax twice a day. He states that he ran out 5 days ago. Related Data Previous Rx's Medication Instructions Recorded alprazolam 1 mg tablet 1 mg PO QID 15 days #60 tabs 04/05/24 atorvastatin 40 mg tablet 40 mg PO BEDTIME #30 tabs 04/05/24 clopidogrel 75 mg tablet (Plavix) 75 mg PO DAILY #30 tabs 04/05/24 duloxetine 30 mg capsule,delayed 90 mg (3 x 30 mg) PO DAILY #90 caps 04/05/24 release famotidine 20 mg tablet 20 mg PO BID 30 days #60 tabs 04/05/24 gabapentin 600 mg tablet 600 mg PO TID #90 tabs 04/05/24 glimepiride 2 mg tablet 3 mg (1.5 x 2 mg) PO BIDAC #90 tabs 04/05/24 lisinopril 20 1 tab PO DAILY #30 tabs 04/05/24 mg-hydrochlorothiazide 25 mg tablet metformin 500 mg tablet 1,000 mg (2 x 500 mg) PO BIDWM 04/05/24 #120 tabs metoprolol succinate 25 mg 25 mg PO DAILY #30 tabs 04/05/24 tablet,extended release 24 hr nitroglycerin 0.4 mg sublingual 0.4 mg sublingual PRN PRN Chest 04/05/24 tablet (Nitrostat) Pain #30 tabs rivaroxaban 2.5 mg tablet (Xarelto) 2.5 mg PO BID #60 tabs 04/05/24 sitagliptin phosphate 100 mg 100 mg PO DAILY #30 tabs 04/05/24 tablet (Januvia) alprazolam 1 mg tablet (Xanax) 1 mg PO BID #20 tabs 05/22/24 Allergies Allergy/AdvReac Type Severity Reaction Status Date / Time codeine Allergy ALGY-Hives Verified 05/22/24 14:09 ketorolac [From Toradol] Allergy ALGY-Hives Verified 05/22/24 14:09 trazodone Allergy ALGY-Difficulty Verified 05/22/24 14:09 Swallowing PFSH ED 2 PFSH: Medical History Social discord Arteriovenous graft infection Alcohol dependence Psychiatric care 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 Prediabetes Erectile dysfunction Chronic pain in left shoulder Had pain present when seen 12/2021 on his first visit and thought he might have a rotator cuff tear then Generalized anxiety disorder with panic attacks Benzodiazepine abuse Dental caries associated with enamel hypomineralization Cigarette smoker Claudication in peripheral vascular disease Since 2017 with walking 100 yards or less Chronic low back pain Torn rotator cuff Hypertension Depression Surgical History History of skin graft Split thickness skin graft of left lower extremity?03/01/2024 History of coronary angioplasty with insertion of stent Family History Other CAD (coronary artery disease) Social History Smoking and tobacco/nicotine status: current every day tobacco/nicotine user cigarettes Packs smoked per day: 2 Alcohol intake: current Alcohol intake frequency: few times a week Substance/Drug Use: never Marital status: Single Number of children: 0 Current occupational status: employed Physical Exam 2 Const: COMMON NORMALS: no acute distress, average body habitus, patient oriented x3, no limitations, healthy appearing, alert and well nourished Neck/C-Spine: COMMON NORMALS: no JVD Resp: COMMON NORMALS: normal respiratory effort, No retractions, No use of accessory muscles, clear to auscultation bilaterally and percussion normal A USCULTATION: clear to auscultation bilaterally PERCUSSION: percussion normal Cardio: COMMON NORMALS: no JVD, regular rate, regular rhythm, S1 normal heart sound present, S2 normal heart sound present, No gallops present (Cardio), No clicks present (Cardio), No murmurs present (Cardio), No rub (Cardio) and Peripheral pulses 2+ throughout RATE: regular rate RHYTHM: regular rhythm HEART SOUNDS: S1 normal heart sound present and S2 normal heart sound present PERIPHERAL PULSES: Peripheral pulses 2+ throughout GI: COMMON NORMALS: Normal to inspection, nondistended, normoactive bowel sounds present, Soft to palpation, non-tender, No hepatosplenomegaly present, no masses and no bruits PALPATION: Yes Soft to palpation and Yes No hepatosplenomegaly present Neuro: COMMON NORMALS: patient oriented x3 SENSORIUM/ORIENTATION: Yes alert Course 2 Vital Signs: Vital signs: Vital Signs Temperature 98.3 F 05/22/24 14:05 Pulse Rate 78 05/22/24 18:11 Respiratory Rate 16 05/22/24 14:05 Blood Pressure 145/118 05/22/24 18:11 Pulse Oximetry 95 05/22/24 18:11 Oxygen Delivery Me thod Room Air 05/22/24 16:00 MDM - Chest Pain Medical Decision Making Patient presents with complaint of shortness of breath and anxiety and chest pain that has been ongoing for the past couple days after he is run out of his Xanax. He normally takes 2 mg of Xanax twice a day. He states that he ran out 5 days ago. No significant abnormality noted on labs or imaging. Patient troponin is negative x 2. EKG with nonspecific ST and T wave changes with no ischemic changes. Chest x-ray without any acute disease. Patient symptoms completely resolved after getting Xanax. I suspect patient's symptoms are secondary to benzodiazepine withdrawal. Patient given a short prescription for Xanax and to follow-up with PCP for ongoing anxiety treatment. Lab Data 05/22/24 16:22 05/22/24 16:22 Radiology Impressions Chest X-Ray 05/22/24 15:59 IMPRESSION: No acute findings. Laboratory Results WBC 10.84 10^3/uL (3.29-11.43) 05/22/24 16:22 RBC 5.40 10^6/uL (3.85-5.65) 05/22/24 16:22 Hgb 15.20 g/dL (11.27-16.99) 05/22/24 16:22 Hct 46.4 % (37-53) 05/22/24 16:22 MCV 85.9 fl (82-101) 05/22/24 16:22 MCH 28.1 pg (27-33) 05/22/24 16:22 MCHC 32.8 g/dL (30-55) 05/22/24 16:22 RDW 15.1 % (12.1-15.1) 05/22/24 16:22 Plt Count 324 10^3/cmm (157-399) 05/22/24 16:22 MPV 8.4 fL (7.4-10.4) 05/22/24 16:22 Neut % (Auto) 63.0 % 05/22/24 16:22 Lymph % (Auto) 28.9 % 05/22/24 16:22 [place] % (Auto) 6.3 % 05/22/24 16:22 Eos % (Auto) 0.7 % 05/22/24 16:22 Baso % (Auto) 0.7 % 05/22/24 16:22 Neut # (Auto) 6.83 10^3/uL (1.8-7.7) 05/22/24 16:22 Lymph # (Auto) 3.1 10^3/uL (0.8-4.8) 05/22/24 16:22 [place] # (Auto) 0.7 10^3/uL (0.2-0.9) 05/22/24 16:22 Eos # (Auto) 0.1 10^3/uL (0.0-0.8) 05/22/24 16:22 Baso # (Auto) 0.1 10^3/uL (0.0-0.1) 05/22/24 16:22 Nucleated RBC % (auto) 0 % 05/22/24 16:22 Nucleated RBCs # 0.0 /100WBC 05/22/24 16:22 Sodium 137 mmol/L (136-145) 05/22/24 16:22 Potassium 3.6 mmol/L (3.5-5.1) 05/22/24 16:22 Chloride 102 mmol/L (98-107) 05/22/24 16:22 Carbon Dioxide 21 mmol/L (22-29) L 05/22/24 16:22 Anion Gap 17.6 (5-19) 05/22/24 16:22 BUN 10 mg/dL (6-20) 05/22/24 16:22 Creatinine 0.7 mg/dL (0.7-1.2) 05/22/24 16:22 GFR Calculation 122.0 mL/min (90-130) 05/22/24 16:22 Glucose 212 mg/dL (65-115) H 05/22/24 16:22 Calculated Osmolality 289 mOsm/kg (285-295) 05/22/24 16:22 Calcium 8.9 mg/dL (8.5-10.5) 05/22/24 16:22 Total Bilirubin 0.4 mg/dL (0.15-1.2) 05/22/24 16:22 AST 26 U/L (0-40) 05/22/24 16:22 ALT 47 U/L (0-41) H 05/22/24 16:22 Alkaline Phosphatase 112 U/L (40-130) 05/22/24 16:22 Troponin T Baseline 8 ng/L (0-15) 05/22/24 16:22 Troponin T 120 Minute 7.35 ng/L (0-15) 05/22/24 17:54 Delta Troponin T -0.65 ABS# (0-10) L 05/22/24 17:54 Total Protein 7.1 g/dL (6.6-8.7) 05/22/24 16:22 Albumin 4.1 g/dL (3.5-5.2) 05/22/24 16:22 Globulin 3.0 g/dL (1.3-4.6) 05/22/24 16:22 All radiology interpretation(s) finalized by discharge Discharge Plan Discharge Patient Disposition: Home Clinical Impression: Anxiety, Drug withdrawal Condition: Stable Prescriptions: New Xanax 1 mg tablet 1 mg PO BID Qty: 20 0RF No Action atorvastatin 40 mg tablet 40 mg PO BEDTIME Qty: 30 1RF metformin 500 mg Tablet 1,000 mg PO BIDWM Qty: 120 1RF gabapentin 600 mg tablet 600 mg PO TID Qty: 90 1RF alprazolam 1 mg tablet 1 mg PO QID 15 Days Qty: 60 1RF Plavix 75 mg tablet 75 mg PO DAILY Qty: 30 1RF glimepiride 2 mg Tablet 3 mg PO BIDAC Qty: 90 1RF famotidine 20 mg Tablet 20 mg PO BID 30 Days Qty: 60 1RF Nitrostat 0.4 mg tablet, sublingual 0.4 mg sublingual PRN PRN (Reason: Chest Pain) Qty: 30 1RF lisinopril-hydrochlorothiazide 20-25 mg tablet 1 tab PO DAILY Qty: 30 1RF metoprolol succinate 25 mg tablet extended release 24 hr 25 mg PO DAILY Qty: 30 1RF duloxetine 30 mg capsule,delayed release(DR/EC) 90 mg PO DAILY Qty: 90 1RF Januvia 100 mg Tablet 100 mg PO DAILY Qty: 30 1RF Xarelto 2.5 mg Tablet 2.5 mg PO BID Qty: 60 1RF Discharge Orders: Discharge ED (Routine); Ordered 05/22/24 Ordered By: Duarte Truong Referrals: Nilesh Hutchinson MD [Primary Care Provider] - Patient Instructions: Opioid Safety, Pain Management Coding Level of Care Code ED Service Operator for Adam Adair
[2024-05-22 19:06] VITALS: BP 152/128; PULSE 97; RESP 18; O2SAT 98
== END 2024-05-22 19:08 | disposition home or self-care (01) ==
PROVIDERS: Emergency Provider Emergency Medicine; PCP Family Medicine Adult Medicine
DX: F41.9 Anxiety disorder, unspecified (principal); F13.239 Sedative, hypnotic or anxiolytic dependence with withdrawal, unspecified; Z79.02 Long term (current) use of antithrombotics/antiplatelets; Z79.84 Long term (current) use of oral hypoglycemic drugs; I10 Essential (primary) hypertension; Z95.5 Presence of coronary angioplasty implant and graft; F17.210 Nicotine dependence, cigarettes, uncomplicated
CPT/HCPCS: 36415; 71045; 80053; 84484; 85025; 93005; 99285

== ENCOUNTER 2024-06-01 13:49 | Emergency (ER) | payer MEDICAID, SELFPAY ==
[2024-06-01 14:23] VITALS: BP 160/94; PULSE 113; RESP 16; TEMP 36.7; O2SAT 94; BMI 36.0
[2024-06-01 14:27] LABS: Basophils # 0.1 10^3/uL (0.0-0.1); Basophils % 0.8 %; Eosinophils # 0.1 10^3/uL (0.0-0.8); Eosinophils % 0.9 %; Hematocrit 47.8 % (37-53); Lymphocytes # 3.1 10^3/uL (0.8-4.8); Lymphocytes % 31.6 %; Mean Corpuscular HGB Conc 33.7 g/dL (30-55); Mean Corpuscular Hemoglobin 28.8 pg (27-33); Mean Corpuscular Volume 85.4 fl (82-101); Mean Platelet Volume 8.3 fL (7.4-10.4); Monocytes # 0.8 10^3/uL (0.2-0.9); Monocytes % 7.6 %; Neutrophils # 5.82 10^3/uL (1.8-7.7); Neutrophils % 58.6 %; Nucleated Red Blood Cells % 0 %; Platelet Count 344 10^3/cmm (157-399); Red Cell Distribution Width 14.6 % (12.1-15.1); White Blood Count 9.92 10^3/uL (3.29-11.43)
[2024-06-01 14:46] LABS: Alanine Aminotransferase 56 U/L (0-41); Albumin Level 4.5 g/dL (3.5-5.2); Alkaline Phosphatase 112 U/L (40-130); Anion Gap 19.4 (5-19); Aspartate Amino Transferase 40 U/L (0-40); Blood Urea Nitrogen 12 mg/dL (6-20); Calcium 9.6 mg/dL (8.5-10.5); Carbon Dioxide 24 mmol/L (22-29); Chloride 97 mmol/L (98-107); Creatinine Clr Calc Pharmacy 134.2376; Globulin 3.1 g/dL (1.3-4.6); Glomerular Filtration Rate 104.5 mL/min (90-130); Glucose 218 mg/dL (65-115); Lipase 27 U/L (13-60); Osmolality Calculated 290 mOsm/kg (285-295); Potassium 3.4 mmol/L (3.5-5.1); Sodium 137 mmol/L (136-145); Total Bilirubin 0.4 mg/dL (0.15-1.2); Total Protein 7.6 g/dL (6.6-8.7)
[2024-06-01 16:06] VITALS: BP 148/116; PULSE 105; RESP 16; O2SAT 97
--- NOTE | 2024-06-01 16:11 | ED_ITS ---
Documented by User: Anil Senior DO 06/02/24 06:06 HPI - Abdominal Pain 2 General: Chief Complaint: Abdominal Pain Stated Complaint: abd pain Time Seen by Provider: 06/01/24 16:02 History of Present Illness: 44-year-old male presents emergency room complaining of abdominal pain for 3 days. Said some dark-colored urine no hematuria no dysuria urgency or frequency. He refers to the pain periumbilical in the left does not extend to the left flank it does extend down to the belt line. He has not had any hematochezia or melena. He has had 1 or 2 loose stools a day but no ximena diarrhea no recent antibiotics. No previous abdominal surgeries. He has not noticed anything that exacerbates or relieves. Associated Symptoms: Denies chills, dysuria and fever(s) Related Data Previous Rx's Medication Instructions Recorded alprazolam 1 mg tablet 1 mg PO QID 15 days #60 tabs 04/05/24 atorvastatin 40 mg tablet 40 mg PO BEDTIME #30 tabs 04/05/24 clopidogrel 75 mg tablet (Plavix) 75 mg PO DAILY #30 tabs 04/05/24 duloxetine 30 mg capsule,delayed 90 mg (3 x 30 mg) PO DAILY #90 caps 04/05/24 release famotidine 20 mg tablet 20 mg PO BID 30 days #60 tabs 04/05/24 gabapentin 600 mg tablet 600 mg PO TID #90 tabs 04/05/24 glimepiride 2 mg tablet 3 mg (1.5 x 2 mg) PO BIDAC #90 tabs 04/05/24 lisinopril 20 1 tab PO DAILY #30 tabs 04/05/24 mg-hydrochlorothiazide 25 mg tablet metformin 500 mg tablet 1,000 mg (2 x 500 mg) PO BIDWM 04/05/24 #120 tabs metoprolol succinate 25 mg 25 mg PO DAILY #30 tabs 04/05/24 tablet,extended release 24 hr nitroglycerin 0.4 mg sublingual 0.4 mg sublingual PRN PRN Chest 04/05/24 tablet (Nitrostat) Pain #30 tabs rivaroxaban 2.5 mg tablet (Xarelto) 2.5 mg PO BID #60 tabs 04/05/24 sitagliptin phosphate 100 mg 100 mg PO DAILY #30 tabs 04/05/24 tablet (Januvia) alprazolam 1 mg tablet (Xanax) 1 mg PO BID #20 tabs 05/22/24 Allergies Allergy/AdvReac Type Severity Reaction Status Date / Time codeine Allergy ALGY-Hives Verified 05/22/24 14:09 ketorolac [From Toradol] Allergy ALGY-Hives Verified 05/22/24 14:09 trazodone Allergy ALGY-Difficulty Verified 05/22/24 14:09 Swallowing Review of Systems 2 Const: Denies: fever(s) or chills Card: Denies: chest pain Resp: Denies: dyspnea GI: Denies: abdominal pain : Denies: dysuria, urinary frequency or urinary urgency Musc: Denies: neck pain or back pain Skin/Breast: Denies: rash PFSH ED 2 PFSH: Medical History Social discord Arteriovenous graft infection Alcohol dependence Psychiatric care 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 Prediabetes Erectile dysfunction Chronic pain in left shoulder Had pain present when seen 12/2021 on his first visit and thought he might have a rotator cuff tear then Generalized anxiety disorder with panic attacks Benzodiazepine abuse Dental caries associated with enamel hypomineralization Cigarette smoker Claudication in peripheral vascular disease Since 2017 with walking 100 yards or less Chronic low back pain Torn rotator cuff Hypertension Depression Surgical History History of coronary angioplasty with insertion of stent History of skin graft Split thickness skin graft of left lower extremity?03/01/2024 Family History Other CAD (coronary artery disease) Social History Smoking and tobacco/nicotine status: current every day tobacco/nicotine user cigarettes Packs smoked per day: 2 Alcohol intake: current Alcohol intake frequency: few times a week Substance/Drug Use: never Marital status: Single Number of children: 0 Current occupational status: employed Physical Exam 2 Const: GENERAL APPEARANCE: cooperative ORIENTATION/CONSCIOUSNESS: Yes awake, Yes oriented to person, Yes oriented to place and Yes oriented to time HENMT: COMMON NORMALS: normocephalic, atraumatic and hearing grossly normal bilaterally HEAD & SCALP: normocephalic and atraumatic Resp: COMMON NORMALS: normal respiratory effort, No retractions, No use of accessory muscles and clear to auscultation bilaterally AUSCULTATION: clear to auscultation bilaterally Cardio: COMMON NORMALS: regular rate, regular rhythm and No murmurs present (Cardio) RATE: regular rate RHYTHM: regular rhythm GI: COMMON NORMALS: Soft to palpation and No hepatosplenomegaly present A USCULTATION: Yes normoactive bowel sounds PALPATION: Yes Soft to palpation, No Tenderness to palpation present (GI), No Guarding due to palpation present (GI) and Yes No hepatosplenomegaly present Extremity: COMMON NORMALS: normal to inspection, capillary refill normal, no clubbing, cyanosis or edema, no calf tenderness and no pedal edema Neuro: SENSORIUM/ORIENTATION: Yes oriented to person, Yes oriented to place and Yes oriented to time Skin: COMMON NORMALS: no rashes or lesions noted GENERAL SKIN EXAM: no rashes or lesions noted Course 2 Vital Signs: Vital signs: Vital Signs Temperature 98.1 F 06/01/24 14:23 Pulse Rate 84 06/01/24 19:05 Respiratory Rate 16 06/01/24 19:05 Blood Pressure 120/87 06/01/24 19:05 Pulse Oximetry 97 06/01/24 19:05 Oxygen Delivery Me thod Room Air 06/01/24 18:19 MDM - Abdominal Pain Medical Decision Making Care signed out to Dr. Dalton at change of shift. See final notes for diagnosis and disposition. Lab Data 06/01/24 14:17 06/01/24 14:17 Labs/Radiology: Radiology Impressions Abdomen/Pelvis CT 06/01/24 16:55 IMPRESSION: 1. No acute findings within the abdomen or pelvis. 2. Unchanged pleural-based pulmonary nodules. 3. Hepatic steatosis. Laboratory Results WBC 9.92 10^3/uL (3.29-11.43) 06/01/24 14:17 RBC 5.60 10^6/uL (3.85-5.65) 06/01/24 14:17 Hgb 16.10 g/dL (11.27-16.99) 06/01/24 14:17 Hct 47.8 % (37-53) 06/01/24 14:17 MCV 85.4 fl (82-101) 06/01/24 14:17 MCH 28.8 pg (27-33) 06/01/24 14:17 MCHC 33.7 g/dL (30-55) 06/01/24 14:17 RDW 14.6 % (12.1-15.1) 06/01/24 14:17 Plt Count 344 10^3/cmm (157-399) 06/01/24 14:17 MPV 8.3 fL (7.4-10.4) 06/01/24 14:17 Neut % (Auto) 58.6 % 06/01/24 14:17 Lymph % (Auto) 31.6 % 06/01/24 14:17 [place] % (Auto) 7.6 % 06/01/24 14:17 Eos % (Auto) 0.9 % 06/01/24 14:17 Baso % (Auto) 0.8 % 06/01/24 14:17 Neut # (Auto) 5.82 10^3/uL (1.8-7.7) 06/01/24 14:17 Lymph # (Auto) 3.1 10^3/uL (0.8-4.8) 06/01/24 14:17 [place] # (Auto) 0.8 10^3/uL (0.2-0.9) 06/01/24 14:17 Eos # (Auto) 0.1 10^3/uL (0.0-0.8) 06/01/24 14:17 Baso # (Auto) 0.1 10^3/uL (0.0-0.1) 06/01/24 14:17 Nucleated RBC % (auto) 0 % 06/01/24 14:17 Nucleated RBCs # 0.0 /100WBC 06/01/24 14:17 Sodium 137 mmol/L (136-145) 06/01/24 14:17 Potassium 3.4 mmol/L (3.5-5.1) L 06/01/24 14:17 Chloride 97 mmol/L (98-107) L 06/01/24 14:17 Carbon Dioxide 24 mmol/L (22-29) 06/01/24 14:17 Anion Gap 19.4 (5-19) H 06/01/24 14:17 BUN 12 mg/dL (6-20) 06/01/24 14:17 Creatinine 0.8 mg/dL (0.7-1.2) 06/01/24 14:17 GFR Calculation 104.5 mL/min (90-130) 06/01/24 14:17 Glucose 218 mg/dL (65-115) H 06/01/24 14:17 Calculated Osmolality 290 mOsm/kg (285-295) 06/01/24 14:17 Calcium 9.6 mg/dL (8.5-10.5) 06/01/24 14:17 Total Bilirubin 0.4 mg/dL (0.15-1.2) 06/01/24 14:17 AST 40 U/L (0-40) 06/01/24 14:17 ALT 56 U/L (0-41) H 06/01/24 14:17 Alkaline Phosphatase 112 U/L (40-130) 06/01/24 14:17 Total Protein 7.6 g/dL (6.6-8.7) 06/01/24 14:17 Albumin 4.5 g/dL (3.5-5.2) 06/01/24 14:17 Globulin 3.1 g/dL (1.3-4.6) 06/01/24 14:17 Lipase 27 U/L (13-60) 06/01/24 14:17 Urine Color Yellow (Yellow) 06/01/24 17:31 Urine Appearance Clear (CLEAR) 06/01/24 17:31 Urine pH 7.0 (5-7) 06/01/24 17:31 Ur Specific [place] 1.026 (1.005-1.030) 06/01/24 17:31 Urine Protein Negative (Negative) 06/01/24 17:31 Urine Glucose (UA) 3+ (Normal) H 06/01/24 17:31 Urine Ketones Negative (Negative) 06/01/24 17:31 Urine Blood Negative (Negative) 06/01/24 17:31 Urine Nitrate Negative (Negative) 06/01/24 17:31 Urine Bilirubin Negative (Negative) 06/01/24 17:31 Urine Urobilinogen 1.0 mg/dL (Negative) 06/01/24 17:31 Ur Leukocyte Esterase Negative (Negative) 06/01/24 17:31 Amorphous Sediment Not Reportable 06/01/24 17:31 Discharge Plan Discharge Patient Disposition: Home Clinical Impression: Anxiety Abdominal pain Qualifiers: Abdominal location: unspecified location Qualified Code(s): R10.9 - Unspecified abdominal pain Condition: Stable Prescriptions: No Action Xanax 1 mg tablet 1 mg PO BID Qty: 20 0RF atorvastatin 40 mg tablet 40 mg PO BEDTIME Qty: 30 1RF metformin 500 mg Tablet 1,000 mg PO BIDWM Qty: 120 1RF gabapentin 600 mg tablet 600 mg PO TID Qty: 90 1RF alprazolam 1 mg tablet 1 mg PO QID 15 Days Qty: 60 1RF Plavix 75 mg tablet 75 mg PO DAILY Qty: 30 1RF glimepiride 2 mg Tablet 3 mg PO BIDAC Qty: 90 1RF famotidine 20 mg Tablet 20 mg PO BID 30 Days Qty: 60 1RF Nitrostat 0.4 mg tablet, sublingual 0.4 mg sublingual PRN PRN (Reason: Chest Pain) Qty: 30 1RF lisinopril-hydrochlorothiazide 20-25 mg tablet 1 tab PO DAILY Qty: 30 1RF metoprolol succinate 25 mg tablet extended release 24 hr 25 mg PO DAILY Qty: 30 1RF duloxetine 30 mg capsule,delayed release(DR/EC) 90 mg PO DAILY Qty: 90 1RF Januvia 100 mg Tablet 100 mg PO DAILY Qty: 30 1RF Xarelto 2.5 mg Tablet 2.5 mg PO BID Qty: 60 1RF Discharge Orders: Discharge ED (Routine); Ordered 06/01/24 Ordered By: Martin Dalton Referrals: Nilesh Hutchinson MD [Primary Care Provider] - 1 week Patient Instructions: Abdominal Pain (ED), Anxiety (ED) Activity Restrictions/Additional Instructions: Thank you for choosing [facility] for your healthcare needs today. Please realize that you were seen in the emergency department and that we are providing you with an emergency medical screening exam and this may not be a complete and all exclusive of all testing and/or medical workup we may need to determine your element or severity of your illness. It is very important that you follow-up as instructed with your primary care provider or specialist for the additional evaluation and to discuss your medical treatment plan. You may return to the emergency department should you have concerns or if your condition changes or worsens in any way. Coding Level of Care Code ED Set Key Driver for Dorothyg Fwd Documented by User: Martin Dalton DO 06/02/24 00:27 HPI - Abdominal Pain 2 General: Chief Complaint: Abdominal Pain Stated Complaint: abd pain Time Seen by Provider: 06/01/24 16:02 Related Data Previous Rx's Medication Instructions Recorded alprazolam 1 mg tablet 1 mg PO QID 15 days #60 tabs 04/05/24 atorvastatin 40 mg tablet 40 mg PO BEDTIME #30 tabs 04/05/24 clopidogrel 75 mg tablet (Plavix) 75 mg PO DAILY #30 tabs 04/05/24 duloxetine 30 mg capsule,delayed 90 mg (3 x 30 mg) PO DAILY #90 caps 04/05/24 release famotidine 20 mg tablet 20 mg PO BID 30 days #60 tabs 04/05/24 gabapentin 600 mg tablet 600 mg PO TID #90 tabs 04/05/24 glimepiride 2 mg tablet 3 mg (1.5 x 2 mg) PO BIDAC #90 tabs 04/05/24 lisinopril 20 1 tab PO DAILY #30 tabs 04/05/24 mg-hydrochlorothiazide 25 mg tablet metformin 500 mg tablet 1,000 mg (2 x 500 mg) PO BIDWM 04/05/24 #120 tabs metoprolol succinate 25 mg 25 mg PO DAILY #30 tabs 04/05/24 tablet,extended release 24 hr nitroglycerin 0.4 mg sublingual 0.4 mg sublingual PRN PRN Chest 04/05/24 tablet (Nitrostat) Pain #30 tabs rivaroxaban 2.5 mg tablet (Xarelto) 2.5 mg PO BID #60 tabs 04/05/24 sitagliptin phosphate 100 mg 100 mg PO DAILY #30 tabs 04/05/24 tablet (Januvia) alprazolam 1 mg tablet (Xanax) 1 mg PO BID #20 tabs 05/22/24 Allergies Allergy/AdvReac Type Severity Reaction Status Date / Time codeine Allergy ALGY-Hives Verified 05/22/24 14:09 ketorolac [From Toradol] Allergy ALGY-Hives Verified 05/22/24 14:09 trazodone Allergy ALGY-Difficulty Verified 05/22/24 14:09 Swallowing PFSH ED 2 PFSH: Medical History Social discord Arteriovenous graft infection Alcohol dependence Psychiatric care 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 Prediabetes Erectile dysfunction Chronic pain in left shoulder Had pain present when seen 12/2021 on his first visit and thought he might have a rotator cuff tear then Generalized anxiety disorder with panic attacks Benzodiazepine abuse Dental caries associated with enamel hypomineralization Cigarette smoker Claudication in peripheral vascular disease Since 2017 with walking 100 yards or less Chronic low back pain Torn rotator cuff Hypertension Depression Surgical History History of coronary angioplasty with insertion of stent History of skin graft Split thickness skin graft of left lower extremity?03/01/2024 Family History Other CAD (coronary artery disease) Social History Smoking and tobacco/nicotine status: current every day tobacco/nicotine user cigarettes Packs smoked per day: 2 Alcohol intake: current Alcohol intake frequency: few times a week Substance/Drug Use: never Marital status: Single Number of children: 0 Current occupational status: employed Course 2 Vital Signs: Vital signs: Vital Signs Temperature 98.1 F 06/01/24 14:23 Pulse Rate 84 06/01/24 19:05 Respiratory Rate 16 06/01/24 19:05 Blood Pressure 120/87 06/01/24 19:05 Pulse Oximetry 97 06/01/24 19:05 Oxygen Delivery Me thod Room Air 06/01/24 18:19 MDM - Abdominal Pain Medical Decision Making Care signed out to Dr. Dalton at change of shift. See final notes for diagnosis and disposition. Care turned over to myself at shift change, reviewed lab work and CT scan all essentially unremarkable, discussed this with the patient. Patient be discharged home. Lab Data 06/01/24 14:17 06/01/24 14:17 Labs/Radiology: Radiology Impressions Abdomen/Pelvis CT 06/01/24 16:55 IMPRESSION: 1. No acute findings within the abdomen or pelvis. 2. Unchanged pleural-based pulmonary nodules. 3. Hepatic steatosis. Laboratory Results WBC 9.92 10^3/uL (3.29-11.43) 06/01/24 14:17 RBC 5.60 10^6/uL (3.85-5.65) 06/01/24 14:17 Hgb 16.10 g/dL (11.27-16.99) 06/01/24 14:17 Hct 47.8 % (37-53) 06/01/24 14:17 MCV 85.4 fl (82-101) 06/01/24 14:17 MCH 28.8 pg (27-33) 06/01/24 14:17 MCHC 33.7 g/dL (30-55) 06/01/24 14:17 RDW 14.6 % (12.1-15.1) 06/01/24 14:17 Plt Count 344 10^3/cmm (157-399) 06/01/24 14:17 MPV 8.3 fL (7.4-10.4) 06/01/24 14:17 Neut % (Auto) 58.6 % 06/01/24 14:17 Lymph % (Auto) 31.6 % 06/01/24 14:17 [place] % (Auto) 7.6 % 06/01/24 14:17 Eos % (Auto) 0.9 % 06/01/24 14:17 Baso % (Auto) 0.8 % 06/01/24 14:17 Neut # (Auto) 5.82 10^3/uL (1.8-7.7) 06/01/24 14:17 Lymph # (Auto) 3.1 10^3/uL (0.8-4.8) 06/01/24 14:17 [place] # (Auto) 0.8 10^3/uL (0.2-0.9) 06/01/24 14:17 Eos # (Auto) 0.1 10^3/uL (0.0-0.8) 06/01/24 14:17 Baso # (Auto) 0.1 10^3/uL (0.0-0.1) 06/01/24 14:17 Nucleated RBC % (auto) 0 % 06/01/24 14:17 Nucleated RBCs # 0.0 /100WBC 06/01/24 14:17 Sodium 137 mmol/L (136-145) 06/01/24 14:17 Potassium 3.4 mmol/L (3.5-5.1) L 06/01/24 14:17 Chloride 97 mmol/L (98-107) L 06/01/24 14:17 Carbon Dioxide 24 mmol/L (22-29) 06/01/24 14:17 Anion Gap 19.4 (5-19) H 06/01/24 14:17 BUN 12 mg/dL (6-20) 06/01/24 14:17 Creatinine 0.8 mg/dL (0.7-1.2) 06/01/24 14:17 GFR Calculation 104.5 mL/min (90-130) 06/01/24 14:17 Glucose 218 mg/dL (65-115) H 06/01/24 14:17 Calculated Osmolality 290 mOsm/kg (285-295) 06/01/24 14:17 Calcium 9.6 mg/dL (8.5-10.5) 06/01/24 14:17 Total Bilirubin 0.4 mg/dL (0.15-1.2) 06/01/24 14:17 AST 40 U/L (0-40) 06/01/24 14:17 ALT 56 U/L (0-41) H 06/01/24 14:17 Alkaline Phosphatase 112 U/L (40-130) 06/01/24 14:17 Total Protein 7.6 g/dL (6.6-8.7) 06/01/24 14:17 Albumin 4.5 g/dL (3.5-5.2) 06/01/24 14:17 Globulin 3.1 g/dL (1.3-4.6) 06/01/24 14:17 Lipase 27 U/L (13-60) 06/01/24 14:17 Urine Color Yellow (Yellow) 06/01/24 17:31 Urine Appearance Clear (CLEAR) 06/01/24 17:31 Urine pH 7.0 (5-7) 06/01/24 17:31 Ur Specific [place] 1.026 (1.005-1.030) 06/01/24 17:31 Urine Protein Negative (Negative) 06/01/24 17:31 Urine Glucose (UA) 3+ (Normal) H 06/01/24 17:31 Urine Ketones Negative (Negative) 06/01/24 17:31 Urine Blood Negative (Negative) 06/01/24 17:31 Urine Nitrate Negative (Negative) 06/01/24 17:31 Urine Bilirubin Negative (Negative) 06/01/24 17:31 Urine Urobilinogen 1.0 mg/dL (Negative) 06/01/24 17:31 Ur Leukocyte Esterase Negative (Negative) 06/01/24 17:31 Amorphous Sediment Not Reportable 06/01/24 17:31 All radiology interpretation(s) finalized by discharge Discharge Plan Discharge Patient Disposition: Home Clinical Impression: Anxiety Abdominal pain Qualifiers: Abdominal location: unspecified location Qualified Code(s): R10.9 - Unspecified abdominal pain Condition: Stable Prescriptions: No Action Xanax 1 mg tablet 1 mg PO BID Qty: 20 0RF atorvastatin 40 mg tablet 40 mg PO BEDTIME Qty: 30 1RF metformin 500 mg Tablet 1,000 mg PO BIDWM Qty: 120 1RF gabapentin 600 mg tablet 600 mg PO TID Qty: 90 1RF alprazolam 1 mg tablet 1 mg PO QID 15 Days Qty: 60 1RF Plavix 75 mg tablet 75 mg PO DAILY Qty: 30 1RF glimepiride 2 mg Tablet 3 mg PO BIDAC Qty: 90 1RF famotidine 20 mg Tablet 20 mg PO BID 30 Days Qty: 60 1RF Nitrostat 0.4 mg tablet, sublingual 0.4 mg sublingual PRN PRN (Reason: Chest Pain) Qty: 30 1RF lisinopril-hydrochlorothiazide 20-25 mg tablet 1 tab PO DAILY Qty: 30 1RF metoprolol succinate 25 mg tablet extended release 24 hr 25 mg PO DAILY Qty: 30 1RF duloxetine 30 mg capsule,delayed release(DR/EC) 90 mg PO DAILY Qty: 90 1RF Januvia 100 mg Tablet 100 mg PO DAILY Qty: 30 1RF Xarelto 2.5 mg Tablet 2.5 mg PO BID Qty: 60 1RF Discharge Orders: Discharge ED (Routine); Ordered 06/01/24 Ordered By: Martin Dalton Referrals: Hutchinson,Nilesh, MD [Primary Care Provider] - 1 week Patient Instructions: Abdominal Pain (ED), Anxiety (ED) Activity Restrictions/Additional Instructions: Thank you for choosing [facility] for your healthcare needs today. Please realize that you were seen in the emergency department and that we are providing you with an emergency medical screening exam and this may not be a complete and all exclusive of all testing and/or medical workup we may need to determine your element or severity of your illness. It is very important that you follow-up as instructed with your primary care provider or specialist for the additional evaluation and to discuss your medical treatment plan. You may return to the emergency department should you have concerns or if your condition changes or worsens in any way. Coding Level of Care Code ED Set Key Driver for Adam Adair
--- NOTE | 2024-06-01 16:55 | CTR_ITS ---
PROCEDURE INFORMATION: Exam: CT Abdomen And Pelvis With Contrast Exam date and time: 06/01/2024 5:34 PM Age: 44 years old Clinical indication: Abdominal pain; Additional info: Abd pain TECHNIQUE: Imaging protocol: Computed tomography of the abdomen and pelvis with contrast. Radiation optimization: All CT scans at this facility use at least one of these dose optimization techniques: automated exposure control; mA and/or kV adjustment per patient size (includes targeted exams where dose is matched to clinical indication); or iterative reconstruction. Contrast material: OMNI 350; Contrast volume: 100 ml; Contrast route: INTRAVENOUS (IV); COMPARISON: CT angio abd aorta runof [id number] 12/02/2023 4:07 PM RADIATION DOSE METRICS: Total DLP (mGy-cm): 979 FINDINGS: Lungs: Unchanged 7 mm pleural nodule within the right middle lobe (series 5, image 3). Unchanged 6 mm nodule within the right lower lobe (series 3 image 13). Unchanged 4 mm pleural nodule within the left lower lobe (series 3, image 18). Liver: Hepatic steatosis. Gallbladder and biliary ducts: Normal. No calcified stones. No ductal dilation. Pancreas: Normal. No ductal dilation. Spleen: Normal. No splenomegaly. Adrenal glands: Normal. No mass. Kidneys and ureters: Normal. No hydronephrosis. Stomach and bowel: Diverticulosis without evidence of diverticulitis. No evidence of obstruction. Small duodenal diverticulum. Appendix: No evidence of appendicitis. Intraperitoneal space: Unremarkable. No free air. No significant fluid collection. Vasculature: Mild atherosclerotic calcifications. Lymph nodes: Unremarkable. No enlarged lymph nodes. Urinary bladder: Unremarkable as visualized. Reproductive: Unremarkable as visualized. Bones/joints: Unremarkable. No acute fracture. Soft tissues: Small fat containing umbilical hernia. CT/CT abdomen pelvis w con* [id number] IMPRESSION: 1. No acute findings within the abdomen or pelvis. 2. Unchanged pleural-based pulmonary nodules. 3. Hepatic steatosis.
[2024-06-01 17:02] VITALS: BP 146/101; PULSE 96; RESP 18; O2SAT 98
[2024-06-01 17:39] LABS: Charge for UA Resulting for Rev
[2024-06-01] MEDS: iohexol 350 mg/mL 500 mL Btl (per mL) IV (17:39)
[2024-06-01 17:43] LABS: Bilirubin Urine Negative (Negative); Blood Urine Negative (Negative); Glucose Urine UA 3+ (Normal); Ketones Urine Negative (Negative); Leukocyte Esterase Urine Negative (Negative); Nitrate Urine Negative (Negative); Protein Urine Negative (Negative); Specific Gravity, Urine 1.026 (1.005-1.030); Urine Appearance Clear (CLEAR); Urine Color Yellow (Yellow)
[2024-06-01] MEDS: LORazepam 1 mg Tablet PO ×2 (17:46→19:07)
[2024-06-01 17:48] VITALS: BP 138/112; PULSE 78; RESP 16; O2SAT 98
[2024-06-01 18:19] VITALS: BP 130/75; PULSE 78; RESP 16; O2SAT 95
[2024-06-01 19:05] VITALS: BP 120/87; PULSE 84; RESP 16; O2SAT 97
== END 2024-06-01 19:10 | disposition home or self-care (01) ==
PROVIDERS: Emergency Medicine; Family Medicine; Emergency Provider Emergency Medicine; PCP Family Medicine Adult Medicine
DX: F41.9 Anxiety disorder, unspecified (principal); R10.9 Unspecified abdominal pain; Z79.84 Long term (current) use of oral hypoglycemic drugs; Z79.02 Long term (current) use of antithrombotics/antiplatelets; F17.210 Nicotine dependence, cigarettes, uncomplicated; I10 Essential (primary) hypertension; Z95.5 Presence of coronary angioplasty implant and graft
CPT/HCPCS: 36415; 74177; 80053; 81003; 81015; 83690; 85025; 99285

== ENCOUNTER 2024-06-07 16:03 | Emergency (ER) | payer MEDICAID, SELFPAY ==
[2024-06-07] VITALS (32 sets, daily range): BP systolic 99–157; BP diastolic 68–109; PULSE 75–105; RESP 10–20; TEMP 36.7; O2SAT 95–100; BMI 36.0
--- NOTE | 2024-06-07 16:05 | ECG_ITS ---
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 f
--- NOTE | 2024-06-07 16:20 | XRR_ITS ---
PROCEDURE INFORMATION: Exam: XR Chest Exam date and time: 06/07/2024 4:28 PM Age: 44 years old Clinical indication: Pain; Angina pectoris; Additional info: Chest pain TECHNIQUE: Imaging protocol: Radiologic exam of the chest. Views: 1 view. COMPARISON: CR XR chest 1V portable [id number] 05/22/2024 4:04 PM FINDINGS: Lungs: The lungs are clear. Pleural spaces: No pneumothorax or pleural effusion. Heart/Mediastinum: Heart size is enlarged. Mediastinal contours unremarkable. Bones/joints: No acute osseous or soft tissue abnormality. XR/XR chest 1V portable [id number] IMPRESSION: 1. The lungs are clear. 2. Cardiomegaly.
--- NOTE | 2024-06-07 16:25 | ED_ITS ---
Documented by User: Anil Senior DO 06/08/24 07:07 HPI - Chest Pain 2 General: Chief Complaint: Chest Pain Stated Complaint: Chest Pain Time Seen by Provider: 06/07/24 16:20 History of Present Illness: 44-year-old male presents to the emergen cy room with complaint of chest pain radiating into his arms. It began while he had walked over to a neighbor and was going to grill. States his pain was 10 of 10 he really received 4 nitro without states his pain is now down to about a 7 or 8 out of 10 he also received aspirin. Has a known history of coronary artery disease he is on Xarelto for A- fib and he is diabetic Associated symptoms: Deny abdominal pain, dyspnea or fever(s) Related Data Previous Rx's Medication Instructions Recorded alprazolam 1 mg tablet 1 mg PO QID 15 days #60 tabs 04/05/24 atorvastatin 40 mg tablet 40 mg PO BEDTIME #30 tabs 04/05/24 clopidogrel 75 mg tablet (Plavix) 75 mg PO DAILY #30 tabs 04/05/24 duloxetine 30 mg capsule,delayed 90 mg (3 x 30 mg) PO DAILY #90 caps 04/05/24 release famotidine 20 mg tablet 20 mg PO BID 30 days #60 tabs 04/05/24 gabapentin 600 mg tablet 600 mg PO TID #90 tabs 04/05/24 glimepiride 2 mg tablet 3 mg (1.5 x 2 mg) PO BIDAC #90 tabs 04/05/24 lisinopril 20 1 tab PO DAILY #30 tabs 04/05/24 mg-hydrochlorothiazide 25 mg tablet metformin 500 mg tablet 1,000 mg (2 x 500 mg) PO BIDWM 04/05/24 #120 tabs metoprolol succinate 25 mg 25 mg PO DAILY #30 tabs 04/05/24 tablet,extended release 24 hr nitroglycerin 0.4 mg sublingual 0.4 mg sublingual PRN PRN Chest 04/05/24 tablet (Nitrostat) Pain #30 tabs rivaroxaban 2.5 mg tablet (Xarelto) 2.5 mg PO BID #60 tabs 04/05/24 sitagliptin phosphate 100 mg 100 mg PO DAILY #30 tabs 04/05/24 tablet (Januvia) alprazolam 1 mg tablet (Xanax) 1 mg PO BID #20 tabs 05/22/24 Allergies Allergy/AdvReac Type Severity Reaction Status Date / Time codeine Allergy ALGY-Hives Verified 05/22/24 14:09 ketorolac [From Toradol] Allergy ALGY-Hives Verified 05/22/24 14:09 trazodone Allergy ALGY-Difficulty Verified 05/22/24 14:09 Swallowing Review of Systems 2 Const: Denies: fever(s) or chills Card: Reports: chest pain and dyspnea on exertion; Denies: edema or swelling of feet/ankles Resp: Denies: dyspnea GI: Denies: abdominal pain : Denies: dysuria, urinary frequency or urinary urgency Musc: Denies: neck pain or back pain Skin/Breast: Denies: rash PFSH ED 2 PFSH: Medical History Social discord Arteriovenous graft infection Alcohol dependence Psychiatric care 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 Prediabetes Erectile dysfunction Chronic pain in left shoulder Had pain present when seen 12/2021 on his first visit and thought he might have a rotator cuff tear then Generalized anxiety disorder with panic attacks Benzodiazepine abuse Dental caries associated with enamel hypomineralization Cigarette smoker Claudication in peripheral vascular disease Since 2017 with walking 100 yards or less Chronic low back pain Torn rotator cuff Hypertension Depression Surgical History History of coronary angioplasty with insertion of stent History of skin graft Split thickness skin graft of left lower extremity?03/01/2024 Family History Other CAD (coronary artery disease) Social History Smoking and tobacco/nicotine status: current every day tobacco/nicotine user cigarettes Packs smoked per day: 2 Alcohol intake: current Alcohol intake frequency: few times a week Substance/Drug Use: never Marital status: Single Number of children: 0 Current occupational status: employed Physical Exam 2 Const: GENERAL APPEARANCE: cooperative ORIENTATION/CONSCIOUSNESS: Yes awake, Yes oriented to person, Yes oriented to place and Yes oriented to time HENMT: COMMON NORMALS: normocephalic, atraumatic and hearing grossly normal bilaterally HEAD & SCALP: normocephalic and atraumatic Resp: COMMON NORMALS: normal respiratory effort, No retractions, No use of accessory muscles and clear to auscultation bilaterally AUSCULTATION: clear to auscultation bilaterally Cardio: COMMON NORMALS: regular rate, regular rhythm and No murmurs present (Cardio) RATE: regular rate RHYTHM: regular rhythm GI: COMMON NORMALS: Soft to palpation and No hepatosplenomegaly present A USCULTATION: Yes normoactive bowel sounds PALPATION: Yes Soft to palpation, No Tenderness to palpation present (GI), No Guarding due to palpation present (GI) and Yes No hepatosplenomegaly present Extremity: COMMON NORMALS: normal to inspection, capillary refill normal, no clubbing, cyanosis or edema, no calf tenderness and no pedal edema Neuro: SENSORIUM/ORIENTATION: Yes oriented to person, Yes oriented to place and Yes oriented to time Skin: COMMON NORMALS: no rashes or lesions noted GENERAL SKIN EXAM: no rashes or lesions noted Course 2 Vital Signs: Vital signs: Vital Signs Temperature 98.0 F 06/07/24 16:05 Pulse Rate 94 06/07/24 19:17 Respiratory Rate 11 L 06/07/24 19:00 Blood Pressure 122/86 06/07/24 19:17 Pulse Oximetry 99 06/07/24 19:17 Oxygen Delivery Me thod Room Air 06/07/24 16:05 MDM - Chest Pain Medical Decision Making Care signed out to Dr. Tompkisn at change of shift. See final notes for diagnosis and disposition. Medical Records I reviewed the patient's medical records. Lab Data I reviewed the patient's lab results. 06/07/24 16:26 06/07/24 16:26 Radiology Impressions Chest X-Ray 06/07/24 16:20 IMPRESSION: 1. The lungs are clear. 2. Cardiomegaly. Gallbladder Ultrasound 06/07/24 17:59 IMPRESSION: Fatty liver. Laboratory Results WBC 10.80 10^3/uL (3.29-11.43) 06/07/24 16:26 RBC 5.24 10^6/uL (3.85-5.65) 06/07/24 16:26 Hgb 15.00 g/dL (11.27-16.99) 06/07/24 16:26 Hct 45.2 % (37-53) 06/07/24 16:26 MCV 86.3 fl (82-101) 06/07/24 16:26 MCH 28.6 pg (27-33) 06/07/24 16: MCHC 33.2 g/dL (30-55) 06/07/24 16: RDW 14.7 % (12.1-15.1) 06/07/24 16:26 Plt Count 347 10^3/cmm (157-399) 06/07/24 16:26 MPV 8.8 fL (7.4-10.4) 06/07/24 16:26 Neut % (Auto) 57.3 % 06/07/24 16:26 Lymph % (Auto) 33.8 % 06/07/24 16:26 [place] % (Auto) 6.6 % 06/07/24 16: Eos % (Auto) 1.1 % 06/07/24 16: Baso % (Auto) 0.7 % 06/07/24 16: Neut # (Auto) 6.19 10^3/uL (1.8-7.7) 06/07/24 16:26 Lymph # (Auto) 3.7 10^3/uL (0.8-4.8) 06/07/24 16:26 [place] # (Auto) 0.7 10^3/uL (0.2-0.9) 06/07/24 16:26 Eos # (Auto) 0.1 10^3/uL (0.0-0.8) 06/07/24 16: Baso # (Auto) 0.1 10^3/uL (0.0-0.1) 06/07/24 16:26 Nucleated RBC % (auto) 0 % 06/07/24 16: Nucleated RBCs # 0.0 /100WBC 06/07/24 16:26 Sodium 138 mmol/L (136-145) 06/07/24 16:26 Potassium 3.6 mmol/L (3.5-5.1) 06/07/24 16: Chloride 100 mmol/L (98-107) 06/07/24 16: Carbon Dioxide 24 mmol/L (22-29) 06/07/24 16:26 Anion Gap 17.6 (5-19) 06/07/24 16:26 BUN 16 mg/dL (6-20) 06/07/24 16:26 Creatinine 0.7 mg/dL (0.7-1.2) 06/07/24 16:26 GFR Calculation 122.0 mL/min (90-130) 06/07/24 16:26 Glucose 150 mg/dL (65-115) H 06/07/24 16:26 Calculated Osmolality 290 mOsm/kg (285-295) 06/07/24 16:26 Calcium 9.6 mg/dL (8.5-10.5) 06/07/24 16:26 Total Bilirubin 0.2 mg/dL (0.15-1.2) 06/07/24 16:26 AST 42 U/L (0-40) H 06/07/24 16:26 ALT 50 U/L (0-41) H 06/07/24 16:26 Alkaline Phosphatase 118 U/L (40-130) 06/07/24 16:26 Troponin T Baseline < 6 ng/L (0-15) 06/07/24 16:26 Troponin T 120 Minute 6.00 ng/L (0-15) 06/07/24 18:01 Delta Troponin T 0.34902 ABS# (0-10) 06/07/24 18:01 Total Protein 7.2 g/dL (6.6-8.7) 06/07/24 16:26 Albumin 4.4 g/dL (3.5-5.2) 06/07/24 16:26 Globulin 2.8 g/dL (1.3-4.6) 06/07/24 16:26 Discharge Plan Discharge Patient Disposition: Home Clinical Impression: Non-cardiac chest pain Condition: Stable Prescriptions: No Action Xanax 1 mg tablet 1 mg PO BID Qty: 20 0RF atorvastatin 40 mg tablet 40 mg PO BEDTIME Qty: 30 1RF metformin 500 mg Tablet 1,000 mg PO BIDWM Qty: 120 1RF gabapentin 600 mg tablet 600 mg PO TID Qty: 90 1RF alprazolam 1 mg tablet 1 mg PO QID 15 Days Qty: 60 1RF Plavix 75 mg tablet 75 mg PO DAILY Qty: 30 1RF glimepiride 2 mg Tablet 3 mg PO BIDAC Qty: 90 1RF famotidine 20 mg Tablet 20 mg PO BID 30 Days Qty: 60 1RF Nitrostat 0.4 mg tablet, sublingual 0.4 mg sublingual PRN PRN (Reason: Chest Pain) Qty: 30 1RF lisinopril-hydrochlorothiazide 20-25 mg tablet 1 tab PO DAILY Qty: 30 1RF metoprolol succinate 25 mg tablet extended release 24 hr 25 mg PO DAILY Qty: 30 1RF duloxetine 30 mg capsule,delayed release(DR/EC) 90 mg PO DAILY Qty: 90 1RF Januvia 100 mg Tablet 100 mg PO DAILY Qty: 30 1RF Xarelto 2.5 mg Tablet 2.5 mg PO BID Qty: 60 1RF Discharge Orders: Discharge ED (Routine); Ordered 06/07/24 Ordered By: Cindy Tompkins Referrals: Nilesh Hutchinson MD [Primary Care Provider] - Discharge Diet: Usual diet Discharge Activity: Resume usual activity Patient Instructions: Noncardiac Chest Pain (ED) Activity Restrictions/Additional Instructions: Thank you for choosing [facility] for your healthcare needs today. Please realize this is an emergency room and that we are providing you with a medical screening exam and this may not be complete and all inclusive of all the testing and or work up that you may need to determine your ailment or severity of your illness. You have been screened and evaluated and felt safe for discharge. Health conditions do change or evolve sometimes and as such it is important that you follow up with your Primary Doctor to be re checked, 3-5 days is a general good time frame for follow up. You are always welcome to return to the ED for re assessment if your symptoms are worsening or you have new concerns Coding Level of Care Code ED Info Print Press Operator for Chg Fwd Documented by User: Cindy Tompkins MD 06/07/24 19:02 HPI - Chest Pain 2 General: Chief Complaint: Chest Pain Stated Complaint: Chest Pain Time Seen by Provider: 06/07/24 16:20 Related Data Previous Rx's Medication Instructions Recorded alprazolam 1 mg tablet 1 mg PO QID 15 days #60 tabs 04/05/24 atorvastatin 40 mg tablet 40 mg PO BEDTIME #30 tabs 04/05/24 clopidogrel 75 mg tablet (Plavix) 75 mg PO DAILY #30 tabs 04/05/24 duloxetine 30 mg capsule,delayed 90 mg (3 x 30 mg) PO DAILY #90 caps 04/05/24 release famotidine 20 mg tablet 20 mg PO BID 30 days #60 tabs 04/05/24 gabapentin 600 mg tablet 600 mg PO TID #90 tabs 04/05/24 glimepiride 2 mg tablet 3 mg (1.5 x 2 mg) PO BIDAC #90 tabs 04/05/24 lisinopril 20 1 tab PO DAILY #30 tabs 04/05/24 mg-hydrochlorothiazide 25 mg tablet metformin 500 mg tablet 1,000 mg (2 x 500 mg) PO BIDWM 04/05/24 #120 tabs metoprolol succinate 25 mg 25 mg PO DAILY #30 tabs 04/05/24 tablet,extended release 24 hr nitroglycerin 0.4 mg sublingual 0.4 mg sublingual PRN PRN Chest 04/05/24 tablet (Nitrostat) Pain #30 tabs rivaroxaban 2.5 mg tablet (Xarelto) 2.5 mg PO BID #60 tabs 04/05/24 sitagliptin phosphate 100 mg 100 mg PO DAILY #30 tabs 04/05/24 tablet (Januvia) alprazolam 1 mg tablet (Xanax) 1 mg PO BID #20 tabs 05/22/24 Allergies Allergy/AdvReac Type Severity Reaction Status Date / Time codeine Allergy ALGY-Hives Verified 05/22/24 14:09 ketorolac [From Toradol] Allergy ALGY-Hives Verified 05/22/24 14:09 trazodone Allergy ALGY-Difficulty Verified 05/22/24 14:09 Swallowing PFSH ED 2 PFSH: Medical History Social discord Arteriovenous graft infection Alcohol dependence Psychiatric care 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 Prediabetes Erectile dysfunction Chronic pain in left shoulder Had pain present when seen 12/2021 on his first visit and thought he might have a rotator cuff tear then Generalized anxiety disorder with panic attacks Benzodiazepine abuse Dental caries associated with enamel hypomineralization Cigarette smoker Claudication in peripheral vascular disease Since 2017 with walking 100 yards or less Chronic low back pain Torn rotator cuff Hypertension Depression Surgical History History of coronary angioplasty with insertion of stent History of skin graft Split thickness skin graft of left lower extremity?03/01/2024 Family History Other CAD (coronary artery disease) Social History Smoking and tobacco/nicotine status: current every day tobacco/nicotine user cigarettes Packs smoked per day: 2 Alcohol intake: current Alcohol intake frequency: few times a week Substance/Drug Use: never Marital status: Single Number of children: 0 Current occupational status: employed Course 2 Vital Signs: Vital signs: Vital Signs Temperature 98.0 F 06/07/24 16:05 Pulse Rate 94 06/07/24 19:17 Respiratory Rate 11 L 06/07/24 19:00 Blood Pressure 122/86 06/07/24 19:17 Pulse Oximetry 99 06/07/24 19:17 Oxygen Delivery Mi thod Room Air 06/07/24 16:05 MDM - Chest Pain Medical Decision Making Care signed out to Dr. Tompkins at change of shift. See final notes for diagnosis and disposition. Patient care was transitioned to in at shift change. Awaiting ultrasound of gallbladder and the second cardiac marker. Chest x-ray: Stable cardiomegaly. No acute process. No infiltrate. No pneumothorax. This was reviewed and interpreted by myself the ER physician. Ultrasound gallbladder: No stones, no sludge, no polyps,, was 3 mm. Common bile duct 5 mm. This was reviewed and interpreted by myself the emergency room physician. I also reviewed the radiology report. Serial EKGs show no ischemic changes. Serial cardiac markers are negative. Patient had a very mild elevation in his LFTs. Follow-up with his primary. Assessment and plan: Noncardiac chest pain - Discharged home - Evaluation and treatment of this problem were appropriate in the emergency setting. Lab Data 06/07/24 16:26 06/07/24 16:26 Radiology Impressions Chest X-Ray 06/07/24 16:20 IMPRESSION: 1. The lungs are clear. 2. Cardiomegaly. Gallbladder Ultrasound 06/07/24 17:59 IMPRESSION: Fatty liver. Laboratory Results WBC 10.80 10^3/uL (3.29-11.43) 06/07/24 16:26 RBC 5.24 10^6/uL (3.85-5.65) 06/07/24 16:26 Hgb 15.00 g/dL (11.27-16.99) 06/07/24 16:26 Hct 45.2 % (37-53) 06/07/24 16:26 MCV 86.3 fl (82-101) 06/07/24 16:26 MCH 28.6 pg (27-33) 06/07/24 16: MCHC 33.2 g/dL (30-55) 06/07/24 16:26 RDW 14.7 % (12.1-15.1) 06/07/24 16:26 Plt Count 347 10^3/cmm (157-399) 06/07/24 16:26 MPV 8.8 fL (7.4-10.4) 06/07/24 16:26 Neut % (Auto) 57.3 % 06/07/24 16:26 Lymph % (Auto) 33.8 % 06/07/24 16:26 [place] % (Auto) 6.6 % 06/07/24 16:26 Eos % (Auto) 1.1 % 06/07/24 16:26 Baso % (Auto) 0.7 % 06/07/24 16:26 Neut # (Auto) 6.19 10^3/uL (1.8-7.7) 06/07/24 16:26 Lymph # (Auto) 3.7 10^3/uL (0.8-4.8) 06/07/24 16:26 [place] # (Auto) 0.7 10^3/uL (0.2-0.9) 06/07/24 16:26 Eos # (Auto) 0.1 10^3/uL (0.0-0.8) 06/07/24 16:26 Baso # (Auto) 0.1 10^3/uL (0.0-0.1) 06/07/24 16:26 Nucleated RBC % (auto) 0 % 06/07/24 16:26 Nucleated RBCs # 0.0 /100WBC 06/07/24 16:26 Sodium 138 mmol/L (136-145) 06/07/24 16:26 Potassium 3.6 mmol/L (3.5-5.1) 06/07/24 16:26 Chloride 100 mmol/L (98-107) 06/07/24 16:26 Carbon Dioxide 24 mmol/L (22-29) 06/07/24 16:26 Anion Gap 17.6 (5-19) 06/07/24 16:26 BUN 16 mg/dL (6-20) 06/07/24 16:26 Creatinine 0.7 mg/dL (0.7-1.2) 06/07/24 16:26 GFR Calculation 122.0 mL/min (90-130) 06/07/24 16:26 Glucose 150 mg/dL (65-115) H 06/07/24 16:26 Calculated Osmolality 290 mOsm/kg (285-295) 06/07/24 16:26 Calcium 9.6 mg/dL (8.5-10.5) 06/07/24 16:26 Total Bilirubin 0.2 mg/dL (0.15-1.2) 06/07/24 16:26 AST 42 U/L (0-40) H 06/07/24 16:26 ALT 50 U/L (0-41) H 06/07/24 16:26 Alkaline Phosphatase 118 U/L (40-130) 06/07/24 16:26 Troponin T Baseline < 6 ng/L (0-15) 06/07/24 16:26 Troponin T 120 Minute 6.00 ng/L (0-15) 06/07/24 18:01 Delta Troponin T 0.53389 ABS# (0-10) 06/07/24 18:01 Total Protein 7.2 g/dL (6.6-8.7) 06/07/24 16:26 Albumin 4.4 g/dL (3.5-5.2) 06/07/24 16:26 Globulin 2.8 g/dL (1.3-4.6) 06/07/24 16:26 All radiology interpretation(s) finalized by discharge Discharge Plan Discharge Patient Disposition: Home Clinical Impression: Non-cardiac chest pain Condition: Stable Prescriptions: No Action Xanax 1 mg tablet 1 mg PO BID Qty: 20 0RF atorvastatin 40 mg tablet 40 mg PO BEDTIME Qty: 30 1RF metformin 500 mg Tablet 1,000 mg PO BIDWM Qty: 120 1RF gabapentin 600 mg tablet 600 mg PO TID Qty: 90 1RF alprazolam 1 mg tablet 1 mg PO QID 15 Days Qty: 60 1RF Plavix 75 mg tablet 75 mg PO DAILY Qty: 30 1RF glimepiride 2 mg Tablet 3 mg PO BIDAC Qty: 90 1RF famotidine 20 mg Tablet 20 mg PO BID 30 Days Qty: 60 1RF Nitrostat 0.4 mg tablet, sublingual 0.4 mg sublingual PRN PRN (Reason: Chest Pain) Qty: 30 1RF lisinopril-hydrochlorothiazide 20-25 mg tablet 1 tab PO DAILY Qty: 30 1RF metoprolol succinate 25 mg tablet extended release 24 hr 25 mg PO DAILY Qty: 30 1RF duloxetine 30 mg capsule,delayed release(DR/EC) 90 mg PO DAILY Qty: 90 1RF Januvia 100 mg Tablet 100 mg PO DAILY Qty: 30 1RF Xarelto 2.5 mg Tablet 2.5 mg PO BID Qty: 60 1RF Discharge Orders: Discharge ED (Routine); Ordered 06/07/24 Ordered By: Cindy Tompkins Referrals: Nilesh Hutchinson MD [Primary Care Provider] - Discharge Diet: Usual diet Discharge Activity: Resume usual activity Patient Instructions: Noncardiac Chest Pain (ED) Activity Restrictions/Additional Instructions: Thank you for choosing [facility] for your healthcare needs today. Please realize this is an emergency room and that we are providing you with a medical screening exam and this may not be complete and all inclusive of all the testing and or work up that you may need to determine your ailment or severity of your illness. You have been screened and evaluated and felt safe for discharge. Health conditions do change or evolve sometimes and as such it is important that you follow up with your Primary Doctor to be re checked, 3-5 days is a general good time frame for follow up. You are always welcome to return to the ED for re assessment if your symptoms are worsening or you have new concerns Coding Level of Care Code ED Info Print Press Operator for Adam Adair
[2024-06-07 16:46] LABS: Basophils # 0.1 10^3/uL (0.0-0.1); Basophils % 0.7 %; Eosinophils # 0.1 10^3/uL (0.0-0.8); Eosinophils % 1.1 %; Hematocrit 45.2 % (37-53); Lymphocytes # 3.7 10^3/uL (0.8-4.8); Lymphocytes % 33.8 %; Mean Corpuscular HGB Conc 33.2 g/dL (30-55); Mean Corpuscular Hemoglobin 28.6 pg (27-33); Mean Corpuscular Volume 86.3 fl (82-101); Mean Platelet Volume 8.8 fL (7.4-10.4); Monocytes # 0.7 10^3/uL (0.2-0.9); Monocytes % 6.6 %; Neutrophils # 6.19 10^3/uL (1.8-7.7); Neutrophils % 57.3 %; Nucleated Red Blood Cells % 0 %; Platelet Count 347 10^3/cmm (157-399); Red Blood Count 5.24 10^6/uL (3.85-5.65); Red Cell Distribution Width 14.7 % (12.1-15.1)
[2024-06-07 17:47] LABS: Troponin(5th) Baseline < 6 ng/L (0-15)
[2024-06-07 17:50] LABS: Alanine Aminotransferase 50 U/L (0-41); Albumin Level 4.4 g/dL (3.5-5.2); Alkaline Phosphatase 118 U/L (40-130); Aspartate Amino Transferase 42 U/L (0-40); Blood Urea Nitrogen 16 mg/dL (6-20); Calcium 9.6 mg/dL (8.5-10.5); Carbon Dioxide 24 mmol/L (22-29); Chloride 100 mmol/L (98-107); Creatinine Clr Calc Pharmacy 153.4144; Globulin 2.8 g/dL (1.3-4.6); Glucose 150 mg/dL (65-115); Osmolality Calculated 290 mOsm/kg (285-295); Sodium 138 mmol/L (136-145); Total Bilirubin 0.2 mg/dL (0.15-1.2); Total Protein 7.2 g/dL (6.6-8.7)
[2024-06-07 17:52] LABS: Anion Gap 17.6 (5-19); Potassium 3.6 mmol/L (3.5-5.1)
--- NOTE | 2024-06-07 17:59 | USR_ITS ---
PROCEDURE INFORMATION: Exam: US Abdomen, Limited; Right Upper Quadrant Exam date and time: 06/07/2024 6:10 PM Age: 44 years old Clinical indication: Abdominal pain; Generalized; Additional info: Elevated transaminases TECHNIQUE: Imaging protocol: Real time ultrasound of the abdomen with image documentation. Limited exam focused on the right upper quadrant. COMPARISON: CT abdomen pelvis w con* [id number] 06/01/2024 5:34 PM FINDINGS: Liver: Echogenic, consistent with fatty infiltration. Gallbladder: No gallstones. No gallbladder wall thickening or pericholecystic fluid. Negative sonographic Huang's sign, as per the performing occupational analyst. Biliary ducts: No stones. No ductal dilatation. Pancreas: Unremarkable as visualized. Right kidney: No mass. No definite stones. No hydronephrosis. US/US gall bladder [id number] IMPRESSION: Fatty liver.
--- NOTE | 2024-06-07 18:32 | ECG_ITS ---
[facility] Test Date: 2024-06-07 Pat Name: Rudy Crawford Department: Room: Gender: Male Safety Inspector: : 1980 Requested By: Anil Lala Order Number: [id number] Reading MD: AISHWARYA FLORES Measurements Intervals [place] Rate: 80 P: -1 [place]: 181 QRS: 36 QRSD: 126 T: 35 QT: 380 QTc: 440 Interpretive Statements SINUS RHYTHM INFERIOR MYOCARDIAL INFARCTION , PROBABLY OLD [40+ ms Q WAVE AND/OR ST/T ABNORMALITY IN II/aVF] Compared to ECG 06/07/2024 16:05:00 Sinus tachycardia no longer present Myocardial infarct finding still present Electronically Signed On 06-08-2024 11:57:27 CDT by AISHWARYA FLORES [id number]
[2024-06-07 18:34] LABS: Troponin 5 2HR Delta 0.00001 ABS# (0-10)
[2024-06-07] MEDS: ondansetron 2 mg/ML SDV 2 mL 4 MG IVP (18:36)
[2024-06-07] MEDS: morphine 4 mg/mL SDV 1 mL IVP (18:40)
== END 2024-06-07 19:12 | disposition home or self-care (01) ==
PROVIDERS: Family Medicine; Emergency Provider Emergency Medicine; PCP Family Medicine Adult Medicine
DX: R07.89 Other chest pain (principal); Z79.84 Long term (current) use of oral hypoglycemic drugs; Z79.02 Long term (current) use of antithrombotics/antiplatelets; F17.210 Nicotine dependence, cigarettes, uncomplicated; I10 Essential (primary) hypertension; Z95.5 Presence of coronary angioplasty implant and graft
CPT/HCPCS: 36415; 71045; 76705; 80053; 84484; 85025; 93005; 96374; 96375; 99285; J2270; J2405

== ENCOUNTER 2024-06-11 15:52 | Emergency (ER) | payer MEDICAID, SELFPAY ==
[2024-06-11 15:55] VITALS: BP 151/96; PULSE 101; RESP 18; TEMP 36.4; O2SAT 99; BMI 37.5
--- NOTE | 2024-06-11 16:12 | ED_ITS ---
HPI - Wound/Laceration General: Chief Complaint: Wound/Laceration Stated Complaint: left leg swelling and pain Time Seen by Provider: 06/11/24 16:04 History of Present Illness: 44-year-old male patient comes in today for complaints of anxiety and concern for wound to the right thigh. Patient had a femoropopliteal bypass done approximately 3 months ago. Patient had poor healing of the wound and stated that there was a retained staple for a prolonged period. Patient comes in today concerned that there may be infection in the wound site. No redness or significant swelling is noted to the wound. Distal pulses are intact. No fever is noted. Patient appears nontoxic. Patient appears anxious. Patient also reports being without his alprazolam. Patient does have a history of diabetes mellitus, peripheral vascular disease, coronary artery disease. Related Data Previous Rx's Medication Instructions Recorded alprazolam 1 mg tablet 1 mg PO QID 15 days #60 tabs 04/05/24 atorvastatin 40 mg tablet 40 mg PO BEDTIME #30 tabs 04/05/24 clopidogrel 75 mg tablet (Plavix) 75 mg PO DAILY #30 tabs 04/05/24 duloxetine 30 mg capsule,delayed 90 mg (3 x 30 mg) PO DAILY #90 caps 04/05/24 release famotidine 20 mg tablet 20 mg PO BID 30 days #60 tabs 04/05/24 gabapentin 600 mg tablet 600 mg PO TID #90 tabs 04/05/24 glimepiride 2 mg tablet 3 mg (1.5 x 2 mg) PO BIDAC #90 tabs 04/05/24 lisinopril 20 1 tab PO DAILY #30 tabs 04/05/24 mg-hydrochlorothiazide 25 mg tablet metformin 500 mg tablet 1,000 mg (2 x 500 mg) PO BIDWM 04/05/24 #120 tabs metoprolol succinate 25 mg 25 mg PO DAILY #30 tabs 04/05/24 tablet,extended release 24 hr nitroglycerin 0.4 mg sublingual 0.4 mg sublingual PRN PRN Chest 04/05/24 tablet (Nitrostat) Pain #30 tabs rivaroxaban 2.5 mg tablet (Xarelto) 2.5 mg PO BID #60 tabs 04/05/24 sitagliptin phosphate 100 mg 100 mg PO DAILY #30 tabs 04/05/24 tablet (Januvia) alprazolam 1 mg tablet (Xanax) 1 mg PO BID #20 tabs 05/22/24 aspirin 325 mg tablet 325 mg PO DAILY #30 tabs 06/09/24 clopidogrel 75 mg tablet (Plavix) 75 mg PO DAILY #30 tabs 06/09/24 lisinopril 20 1 tab PO DAILY #30 tabs 06/09/24 mg-hydrochlorothiazide 25 mg tablet lorazepam 1 mg tablet 0.5 mg (1/2 x 1 mg) buccal TID PRN 06/09/24 anxiety #30 tabs mupirocin 2 % topical ointment 1 applic topical BID #22 grams 06/09/24 Allergies Allergy/AdvReac Type Severity Reaction Status Date / Time codeine Allergy ALGY-Hives Verified 06/09/24 14:11 ketorolac [From Toradol] Allergy ALGY-Hives Verified 06/09/24 14:11 trazodone Allergy ALGY-Difficulty Verified 06/09/24 14:11 Swallowing Review of Systems General: Reports: 10 or more systems reviewed and unremarkable except in HPI and below Skin/Breast: Reports: lesions Psych: Reports: anxiety PFSH ED PFSH: Medical History Social discord Arteriovenous graft infection Alcohol dependence Psychiatric care 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 Prediabetes Erectile dysfunction Chronic pain in left shoulder Had pain present when seen 12/2021 on his first visit and thought he might have a rotator cuff tear then Generalized anxiety disorder with panic attacks Benzodiazepine abuse Dental caries associated with enamel hypomineralization Cigarette smoker Claudication in peripheral vascular disease Since 2017 with walking 100 yards or less Chronic low back pain Torn rotator cuff Hypertension Depression Surgical History History of coronary angioplasty with insertion of stent History of skin graft Split thickness skin graft of left lower extremity?03/01/2024 Family History Other CAD (coronary artery disease) Social History Smoking and tobacco/nicotine status: current every day tobacco/nicotine user cigarettes Packs smoked per day: 2 Alcohol intake: current Alcohol intake frequency: few times a week Substance/Drug Use: never Marital status: Single Number of children: 0 Current occupational status: employed Physical Exam Const: COMMON NORMALS: alert HENMT: COMMON NORMALS: normocephalic HEAD & SCALP: normocephalic Neck/C-Spine: COMMON NORMALS: full ROM Resp: COMMON NORMALS: normal respiratory effort Cardio: COMMON NORMALS: regular rate RATE: regular rate GI: COMMON NORMALS: non-tender Back/Pelvis: COMMON NORMALS: thoracic and lumbar spine normal to inspection Extremity: LEFT LOWER EXTREMITY: Yes upper leg (Scar left inner leg. No redness or fever) Neuro: SENSORIUM/ORIENTATION: Yes alert Skin: NARRATIVE SKIN EXAM: Significant scar to the left leg. No redness or fever noted to the wound. No drainage is noted. Course Vital Signs: Vital signs: Vital Signs Temperature 97.6 F 06/11/24 15:55 Pulse Rate 101 H 06/11/24 15:55 Respiratory Rate 18 06/11/24 15:55 Blood Pressure 151/96 06/11/24 15:55 Pulse Oximetry 99 06/11/24 15:55 Oxygen Delivery Me thod Room Air 06/11/24 15:55 MDM - Wound/Laceration Medical Decision Making 44-year-old male patient comes in today for complaints of anxiety and concerned of wound to the left lower leg. On exam patient appears nontoxic. Patient appears no acute distress. Respirations are even lungs are clear to auscultation. Skin is warm and dry. Differential diagnosis includes wound infection, malingering, anxiety, eschar. Patient does have some wound eschar. Recommended use of Vaseline to the area to help with the hardening of the tissue. No signs of infection are noted. Patient was given 1 mg alprazolam for his anxiety and was discharged home with recommendation to fill prescriptions as ordered. Patient reported understanding agreed to plan. No radiology studies performed this visit Discharge Plan Discharge Condition: Stable Prescriptions: No Action lorazepam 1 mg tablet 0.5 mg buccal TID PRN (Reason: anxiety) Qty: 30 0RF lisinopril-hydrochlorothiazide 20-25 mg tablet 1 tab PO DAILY Qty: 30 0RF clopidogrel [Plavix] 75 mg tablet 75 mg PO DAILY Qty: 30 0RF aspirin 325 mg tablet 325 mg PO DAILY Qty: 30 0RF mupirocin 2 % ointment 1 applic topical BID Qty: 22 0RF Xanax 1 mg tablet 1 mg PO BID Qty: 20 0RF atorvastatin 40 mg tablet 40 mg PO BEDTIME Qty: 30 1RF metformin 500 mg Tablet 1,000 mg PO BIDWM Qty: 120 1RF gabapentin 600 mg tablet 600 mg PO TID Qty: 90 1RF alprazolam 1 mg tablet 1 mg PO QID 15 Days Qty: 60 1RF Plavix 75 mg tablet 75 mg PO DAILY Qty: 30 1RF glimepiride 2 mg Tablet 3 mg PO BIDAC Qty: 90 1RF famotidine 20 mg Tablet 20 mg PO BID 30 Days Qty: 60 1RF Nitrostat 0.4 mg tablet, sublingual 0.4 mg sublingual PRN PRN (Reason: Chest Pain) Qty: 30 1RF lisinopril-hydrochlorothiazide 20-25 mg tablet 1 tab PO DAILY Qty: 30 1RF metoprolol succinate 25 mg tablet extended release 24 hr 25 mg PO DAILY Qty: 30 1RF duloxetine 30 mg capsule,delayed release(DR/EC) 90 mg PO DAILY Qty: 90 1RF Januvia 100 mg Tablet 100 mg PO DAILY Qty: 30 1RF Xarelto 2.5 mg Tablet 2.5 mg PO BID Qty: 60 1RF Referrals: Nilesh Hutchinson MD [Primary Care Provider] - Coding Level of Care Code 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
[2024-06-11] MEDS: ALPRAZolam 0.5 mg Tablet 1 MG PO (16:16)
[2024-06-11 16:25] VITALS: BP 157/89; PULSE 103; RESP 20; O2SAT 96
== END 2024-06-11 16:25 | disposition home or self-care (01) ==
PROVIDERS: Emergency Provider Nurse Practitioner Family; PCP Family Medicine Adult Medicine
DX: F41.9 Anxiety disorder, unspecified (principal); Z79.02 Long term (current) use of antithrombotics/antiplatelets; Z79.82 Long term (current) use of aspirin; Z79.84 Long term (current) use of oral hypoglycemic drugs
CPT/HCPCS: 99283

== ENCOUNTER 2024-07-09 19:09 | Emergency (ER) | payer MEDICAID, SELFPAY ==
[2024-07-09 19:15] VITALS: BP 114/77; PULSE 89; TEMP 36.9; O2SAT 96; BMI 37.5
--- NOTE | 2024-07-09 19:35 | XRR_ITS ---
PROCEDURE INFORMATION: Exam: XR Chest Exam date and time: 07/09/2024 7:43 PM Age: 44 years old Clinical indication: Screening exam; Other screening; Prior surgery; Surgery date: 6+ months; Surgery type: Y-cardiac stent x 2; Patient HX: Si; Psychiatric screening TECHNIQUE: Imaging protocol: Radiologic exam of the chest. Views: 1 view. COMPARISON: CR XR chest 1V portable [id number] 06/07/2024 4:28 PM FINDINGS: Lungs: Unremarkable. No consolidation. Pleural spaces: Unremarkable. No pleural effusion. No pneumothorax. Heart/Mediastinum: Unremarkable. No cardiomegaly. Bones/joints: Unremarkable. XR/XR chest 1V portable [id number] IMPRESSION: No acute findings.
--- NOTE | 2024-07-09 19:43 | ECG_ITS ---
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 Measurements Intervals [place] Rate: 84 P: 23 [place]: 189 QRS: 61 QRSD: 123 T: 33 QT: 378 QTc: 448 Interpretive Statements SINUS RHYTHM MODERATE INTRAVENTRICULAR CONDUCTION DELAY [110+ ms QRS DURATION] Compared to ECG 06/07/2024 18:32:35 Intraventricular conduction delay now present Myocardial infarct finding no longer present Electronically Signed On 07-10-2024 14:09:14 CDT by Michael Cabrera M.D. [id number]
[2024-07-09] MEDS: LORazepam 2 mg/mL INJ 1 mL IM (20:10)
[2024-07-09 20:24] LABS: Basophils # 0.1 10^3/uL (0.0-0.1); Basophils % 0.7 %; Eosinophils # 0.1 10^3/uL (0.0-0.8); Eosinophils % 0.9 %; Hematocrit 42.9 % (37-53); Lymphocytes # 3.5 10^3/uL (0.8-4.8); Lymphocytes % 40.2 %; Mean Corpuscular Hemoglobin 30.8 pg (27-33); Mean Corpuscular Volume 88.1 fl (82-101); Mean Platelet Volume 8.3 fL (7.4-10.4); Monocytes # 0.5 10^3/uL (0.2-0.9); Monocytes % 5.8 %; Neutrophils # 4.58 10^3/uL (1.8-7.7); Neutrophils % 52.1 %; Nucleated Red Blood Cells % 0 %; Platelet Count 307 10^3/cmm (157-399); Red Blood Count 4.87 10^6/uL (3.85-5.65); Red Cell Distribution Width 13.3 % (12.1-15.1); White Blood Count 8.79 10^3/uL (3.29-11.43)
[2024-07-09 20:25] LABS: Bacteria Urine None Seen /hpf; Hyaline Casts Urine 0-4 /lpf; RBC Urine 0-2 /hpf (0-2); Squamous Epithelial Cell Urine 0-5 /hpf (0-5); WBC Urine 0-5 /hpf (0-5)
--- NOTE | 2024-07-09 20:26 | ED.C_ITS ---
HPI - Psych 2 General: Chief Complaint: Psychiatric Symptoms Stated Complaint: SI Time Seen by Provider: 07/09/24 19:31 History of Present Illness: This patient is a 44-year-old white male who presents to the ER stating that his anxiety is through the roof . States it has been so severe he has been having suicidal thoughts. He is specifically thought of jumping out in front of a truck. Patient states he has been on Xanax for his anxiety but was switched to Ativan which is not working. He is also on duloxetine 90 mg/day. Patient does have history of hypertension and diabetes. Associated symptoms: Reports suicidal ideation Related Data Previous Rx's Medication Instructions Recorded alprazolam 1 mg tablet 1 mg PO QID 15 days #60 tabs 04/05/24 atorvastatin 40 mg tablet 40 mg PO BEDTIME #30 tabs 04/05/24 clopidogrel 75 mg tablet (Plavix) 75 mg PO DAILY #30 tabs 04/05/24 duloxetine 30 mg capsule,delayed 90 mg (3 x 30 mg) PO DAILY #90 caps 04/05/24 release famotidine 20 mg tablet 20 mg PO BID 30 days #60 tabs 04/05/24 gabapentin 600 mg tablet 600 mg PO TID #90 tabs 04/05/24 glimepiride 2 mg tablet 3 mg (1.5 x 2 mg) PO BIDAC #90 tabs 04/05/24 lisinopril 20 1 tab PO DAILY #30 tabs 04/05/24 mg-hydrochlorothiazide 25 mg tablet metformin 500 mg tablet 1,000 mg (2 x 500 mg) PO BIDWM 04/05/24 #120 tabs metoprolol succinate 25 mg 25 mg PO DAILY #30 tabs 04/05/24 tablet,extended release 24 hr nitroglycerin 0.4 mg sublingual 0.4 mg sublingual PRN PRN Chest 04/05/24 tablet (Nitrostat) Pain #30 tabs rivaroxaban 2.5 mg tablet (Xarelto) 2.5 mg PO BID #60 tabs 04/05/24 sitagliptin phosphate 100 mg 100 mg PO DAILY #30 tabs 04/05/24 tablet (Januvia) alprazolam 1 mg tablet (Xanax) 1 mg PO BID #20 tabs 05/22/24 aspirin 325 mg tablet 325 mg PO DAILY #30 tabs 06/09/24 clopidogrel 75 mg tablet (Plavix) 75 mg PO DAILY #30 tabs 06/09/24 lisinopril 20 1 tab PO DAILY #30 tabs 06/09/24 mg-hydrochlorothiazide 25 mg tablet lorazepam 1 mg tablet 0.5 mg (1/2 x 1 mg) buccal TID PRN 06/09/24 anxiety #30 tabs mupirocin 2 % topical ointment 1 applic topical BID #22 grams 06/09/24 alprazolam 1 mg tablet (Xanax) 1 mg PO QID #30 tabs 07/09/24 Allergies Allergy/AdvReac Type Severity Reaction Status Date / Time codeine Allergy ALGY-Hives Verified 07/09/24 19:19 ketorolac [From Toradol] Allergy ALGY-Hives Verified 07/09/24 19:19 trazodone Allergy ALGY-Difficulty Verified 07/09/24 19:19 Swallowing Review of Systems 2 General: Reports: 10 or more systems reviewed and unremarkable except in HPI and below Psych: Reports: anxiety and suicidal ideation PFSH ED 2 PFSH: Medical History Social discord Arteriovenous graft infection Alcohol dependence Psychiatric care 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 Prediabetes Erectile dysfunction Chronic pain in left shoulder Had pain present when seen 12/2021 on his first visit and thought he might have a rotator cuff tear then Generalized anxiety disorder with panic attacks Benzodiazepine abuse Dental caries associated with enamel hypomineralization Cigarette smoker Claudication in peripheral vascular disease Since 2018 with walking 100 yards or less Chronic low back pain Torn rotator cuff Hypertension Depression Surgical History History of coronary angioplasty with insertion of stent History of skin graft Split thickness skin graft of left lower extremity?03/01/2024 Family History Other CAD (coronary artery disease) Social History Smoking and tobacco/nicotine status: current every day tobacco/nicotine user cigarettes Packs smoked per day: 2 Alcohol intake: current Alcohol intake frequency: few times a week Substance/Drug Use: never Marital status: Single Number of children: 0 Current occupational status: employed Physical Exam 2 Const: COMMON NORMALS: no acute distress, patient oriented x3 and no limitations GENERAL APPEARANCE: cooperative and comfortable HENMT: COMMON NORMALS: normocephalic, atraumatic, Normal nasal mucous membranes and turbinates present, moist oral mucous membranes and oropharynx normal HEAD & SCALP: normal to inspection, normocephalic and atraumatic F KOMAL & SINUS: normal facial exam NOSE: Normal nasal mucous membranes and turbinates present Eye: COMMON NORMALS: Equal, round and reactive pupils present, EOMs intact bilaterally and conjunctivae normal GENERAL EYE: appearance normal, both eyes and all related structures CONJUNCTIVA: Yes conjunctivae normal PUPIL: Yes Equal, round and reactive pupils present Neck/C-Spine: COMMON NORMALS: supple and no JVD Chest: COMMONS NORMALS: normal inspection of the chest Resp: COMMON NORMALS: normal respiratory effort and clear to auscultation bilaterally AUSCULTATION: clear to auscultation bilaterally Cardio: COMMON NORMALS: no JVD, regular rate, regular rhythm, No gallops present (Cardio), No murmurs present (Cardio) and No rub (Cardio) RATE: r egular rate RHYTHM: regular rhythm GI: COMMON NORMALS: Normal to inspection, nondistended, normoactive bowel sounds present, Soft to palpation and non-tender AUSCULTATION: Yes normoactive bowel sounds PALPATION: Yes Soft to palpation : COMMON NORMALS: Yes no CVA tenderness BLADDER/KIDNEY EXAM: Yes no CVA tenderness Back/Pelvis: COMMON NORMALS: no CVA tenderness and thoracic and lumbar spine normal to inspection Extremity: COMMON NORMALS: normal to inspection Neuro: COMMON NORMALS: patient oriented x3 and CN's II-XII intact bilaterally Psych: COMMON NORMALS: mental status grossly normal, Normal thought process present, cooperative and speech normal APPEARANCE: Yes unkempt ATTITUDE: Y es calm ACTIVITY/MOTOR BEHAVIOR: Yes appropriate eye contact SPEECH: Yes normal speech MOOD & AFFECT: Yes depressed mood THOUGHT PROCESS: Normal thought process present THOUGHT CONTENT: Yes Normal thought content present Skin: COMMON NORMALS: no rashes or lesions noted, turgor normal and no jaundice GENERAL SKIN EXAM: no rashes or lesions noted and turgor normal Course 2 Vital Signs: Vital signs: Vital Signs Temperature 98.4 F 07/09/24 19:15 Pulse Rate 89 10/13/24 19:15 Blood Pressure 114/77 07/09/24 19:15 Pulse Oximetry 96 07/09/24 19:15 Oxygen Delivery Me thod Room Air 07/09/24 19:15 MDM - Psych Medical Decision Making Please see medical records narrative for the medical decision making. It was entered there. Medical Records EKG is normal. Chest x-ray normal. CBC normal. The rest of the labs are pending. Patient was given 2 mg of Ativan IM for his anxiety. I discussed this patient with Dr. Wagner at 8:50 PM. He knows the patient well. He does not think the patient necessarily needs to be admitted. I will try to get the anxiety under control in the emergency department. We did give him 2 mg of Ativan IM and the patient states that has not helped much. He had requested Xanax. We did give him 1 mg of Xanax p.o. He states he was on 1 mg of Xanax p.o. 4 times per day but he was switched to Ativan which he states is not helping as much. I did write a prescription for the Xanax 1 mg 4 times per day. Recommended he follow-up with psychiatry and/or primary care physician. Patient feels comfortable going home. He was discharged in stable condition. Lab Data 07/09/24 20:06 07/09/24 20:06 Laboratory Results WBC 8.79 10^3/uL (3.29-11.43) 07/09/24 20:06 RBC 4.87 10^6/uL (3.85-5.65) 07/09/24 20:06 Hgb 15.00 g/dL (11.27-16.99) 07/09/24 20:06 Hct 42.9 % (37-53) 07/09/24 20:06 MCV 88.1 fl (82-101) 07/09/24 20:06 MCH 30.8 pg (27-33) 07/09/24 20:06 MCHC 35.0 g/dL (30-55) 07/09/24 20:06 RDW 13.3 % (12.1-15.1) 07/09/24 20:06 Plt Count 307 10^3/cmm (157-399) 07/09/24 20:06 MPV 8.3 fL (7.4-10.4) 07/09/24 20:06 Neut % (Auto) 52.1 % 07/09/24 20:06 Lymph % (Auto) 40.2 % 07/09/24 20:06 Emmons % (Auto) 5.8 % 07/09/24 20:06 Eos % (Auto) 0.9 % 07/09/24 20:06 Baso % (Auto) 0.7 % 07/09/24 20:06 Neut # (Auto) 4.58 10^3/uL (1.8-7.7) 07/09/24 20:06 Lymph # (Auto) 3.5 10^3/uL (0.8-4.8) 07/09/24 20:06 Emmons # (Auto) 0.5 10^3/uL (0.2-0.9) 07/09/24 20:06 Eos # (Auto) 0.1 10^3/uL (0.0-0.8) 07/09/24 20:06 Baso # (Auto) 0.1 10^3/uL (0.0-0.1) 07/09/24 20:06 Nucleated RBC % (auto) 0 % 07/09/24 20:06 Nucleated RBCs # 0.0 /100WBC 07/09/24 20:06 Urine Color Yellow (Yellow) 07/09/24 20:09 Urine Appearance Clear (CLEAR) 07/09/24 20:09 Urine pH 5.5 (5-7) 07/09/24 20:09 Ur Specific Abbott 1.021 (1.005-1.030) 07/09/24 20:09 Urine Protein Negative (Negative) 07/09/24 20:09 Urine Glucose (UA) 2+ (Normal) H 07/09/24 20:09 Urine Ketones Trace (Negative) 07/09/24 20:09 Urine Blood Negative (Negative) 07/09/24 20:09 Urine Nitrate Negative (Negative) 07/09/24 20:09 Urine Bilirubin Negative (Negative) 07/09/24 20:09 Urine Urobilinogen 1.0 mg/dL (Negative) 07/09/24 20:09 Ur Leukocyte Esterase Negative (Negative) 07/09/24 20:09 Urine RBC 0-2 /hpf (0-2) 07/09/24 20:09 Urine WBC 0-5 /hpf (0-5) 07/09/24 20:09 Ur Squamous Epith Cells 0-5 /hpf (0-5) 07/09/24 20:09 Amorphous Sediment Not Reportable 07/09/24 20:09 Urine Bacteria None seen /hpf (NONE) 07/09/24 20:09 Hyaline Casts 0-4 /lpf H 07/09/24 20:09 Urine Opiates Screen Negative ng/mL (Negative) 07/09/24 20:09 Ur Barbiturates Screen Negative ng/mL (Negative) 07/09/24 20:09 Ur Phencyclidine Scrn Negative ng/mL (Negative) 07/09/24 20:09 Ur Amphetamines Screen Negative ng/mL (Negative) 07/09/24 20:09 U Benzodiazepines Scrn Negative ng/mL (Negative) 07/09/24 20:09 Urine Cocaine Screen Negative ng/mL (Negative) 07/09/24 20:09 U Marijuana (THC) Screen Positive ng/mL (Negative) H 07/09/24 20:09 XR interpretation done by ED provider, pending radiology final review Discharge Plan Discharge Patient Disposition: Home Clinical Impression: Acute anxiety Condition: Stable Prescriptions: New alprazolam [Xanax] 1 mg tablet 1 mg PO QID Qty: 30 0RF No Action lorazepam 1 mg tablet 0.5 mg buccal TID PRN (Reason: anxiety) Qty: 30 0RF lisinopril-hydrochlorothiazide 20-25 mg tablet 1 tab PO DAILY Qty: 30 0RF clopidogrel [Plavix] 75 mg tablet 75 mg PO DAILY Qty: 30 0RF aspirin 325 mg tablet 325 mg PO DAILY Qty: 30 0RF mupirocin 2 % ointment 1 applic topical BID Qty: 22 0RF Xanax 1 mg tablet 1 mg PO BID Qty: 20 0RF atorvastatin 40 mg tablet 40 mg PO BEDTIME Qty: 30 1RF metformin 500 mg Tablet 1,000 mg PO BIDWM Qty: 120 1RF gabapentin 600 mg tablet 600 mg PO TID Qty: 90 1RF alprazolam 1 mg tablet 1 mg PO QID 15 Days Qty: 60 1RF Plavix 75 mg tablet 75 mg PO DAILY Qty: 30 1RF glimepiride 2 mg Tablet 3 mg PO BIDAC Qty: 90 1RF famotidine 20 mg Tablet 20 mg PO BID 30 Days Qty: 60 1RF Nitrostat 0.4 mg tablet, sublingual 0.4 mg sublingual PRN PRN (Reason: Chest Pain) Qty: 30 1RF lisinopril-hydrochlorothiazide 20-25 mg tablet 1 tab PO DAILY Qty: 30 1RF metoprolol succinate 25 mg tablet extended release 24 hr 25 mg PO DAILY Qty: 30 1RF duloxetine 30 mg capsule,delayed release(DR/EC) 90 mg PO DAILY Qty: 90 1RF Januvia 100 mg Tablet 100 mg PO DAILY Qty: 30 1RF Xarelto 2.5 mg Tablet 2.5 mg PO BID Qty: 60 1RF Discharge Orders: Discharge ED (Routine); Ordered 07/09/24 Ordered By: Milad Hernandez Referrals: Nilesh Hutchinson MD [Primary Care Provider] - Coding 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
[2024-07-09 20:28] LABS: Amphetamines Screen Urine Negative (Negative); Barbiturates Screen Urine Negative (Negative); Benzodiazepines Screen Urine Negative (Negative); Cocaine Screen Urine Negative (Negative); Opiate Screen Urine Negative (Negative); PCP Screen Urine Negative (Negative); THC Screen Urine Positive (Negative)
[2024-07-09 20:44] LABS: Add Urine Microscopic? YES; Bilirubin Urine Negative (Negative); Blood Urine Negative (Negative); Glucose Urine UA 2+ (Normal); Ketones Urine Trace (Negative); Leukocyte Esterase Urine Negative (Negative); Nitrate Urine Negative (Negative); Protein Urine Negative (Negative); Specific Gravity, Urine 1.021 (1.005-1.030); Urine Appearance Clear (CLEAR); Urine Color Yellow (Yellow); pH Urine 5.5 (5-7)
[2024-07-09 20:56] LABS: Albumin Level 3.9 g/dL (3.5-5.2); Alkaline Phosphatase 84 U/L (40-130); Blood Urea Nitrogen 13 mg/dL (6-20); Calcium 8.7 mg/dL (8.5-10.5); Carbon Dioxide 22 mmol/L (22-29); Chloride 100 mmol/L (98-107); Creatinine Clr Calc Pharmacy 137.2301; Globulin 2.7 g/dL (1.3-4.6); Glomerular Filtration Rate 104.5 mL/min (90-130); Glucose 146 mg/dL (65-115); Osmolality Calculated 283 mOsm/kg (285-295); Salicylate 1.4 mg/dL (3-10); Sodium 135 mmol/L (136-145); Thyroid Stimulating Hormone 0.88 uIU/mL (0.27-4.20); Total Bilirubin 0.2 mg/dL (0.15-1.2); Total Protein 6.6 g/dL (6.6-8.7)
[2024-07-09 20:57] LABS: Covid PCR NEGATIVE (Negative); Influenza A NEGATIVE (Negative); Influenza B NEGATIVE (Negative); Respiratory Syncytial Virus Ce NEGATIVE (Negative)
[2024-07-09 20:57] LABS: Acetaminophen < 5.0 ug/mL (10-30)
[2024-07-09] MEDS: ALPRAZolam 0.5 mg Tablet 1 MG PO (21:05)
[2024-07-09 21:08] LABS: Alanine Aminotransferase 59 U/L (0-41)
[2024-07-09 21:12] VITALS: BP 121/69; PULSE 82; RESP 16; O2SAT 96
[2024-07-09 21:44] LABS: Aspartate Amino Transferase 44 U/L (0-40)
== END 2024-07-09 21:13 | disposition home or self-care (01) ==
PROVIDERS: Emergency Provider Emergency Medicine; PCP Family Medicine Adult Medicine
DX: F41.9 Anxiety disorder, unspecified (principal); Z79.02 Long term (current) use of antithrombotics/antiplatelets; Z79.82 Long term (current) use of aspirin; Z79.84 Long term (current) use of oral hypoglycemic drugs; F17.210 Nicotine dependence, cigarettes, uncomplicated; I25.2 Old myocardial infarction; I10 Essential (primary) hypertension; Z95.5 Presence of coronary angioplasty implant and graft; Z11.52 Encounter for screening for COVID-19
CPT/HCPCS: 0241U; 36415; 71045; 80053; 80306; 80307; 81001; 84443; 85025; 93005; 96372; 99285; J2060

== ENCOUNTER 2024-07-09 22:38 | Emergency (ER) | payer MEDICAID, SELFPAY ==
[2024-07-09 22:44] VITALS: BP 149/96; PULSE 90; RESP 18; TEMP 36.4; O2SAT 99
--- NOTE | 2024-07-09 23:08 | ECG_ITS ---
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 Measurements Intervals [place] Rate: 94 P: 3 MT: 168 QRS: 47 QRSD: 123 T: 41 QT: 364 QTc: 456 Interpretive Statements SINUS RHYTHM MODERATE INTRAVENTRICULAR CONDUCTION DELAY [110+ ms QRS DURATION] Compared to ECG 07/09/2024 19:43:04 No significant changes Electronically Signed On 07-10-2024 14:08:51 CDT by Michael Cabrera M.D. [id number]
[2024-07-09 23:32] LABS: Basophils # 0.1 10^3/uL (0.0-0.1); Basophils % 0.7 %; Eosinophils # 0.1 10^3/uL (0.0-0.8); Eosinophils % 1.3 %; Hematocrit 42.7 % (37-53); Lymphocytes # 3.4 10^3/uL (0.8-4.8); Mean Corpuscular HGB Conc 33.3 g/dL (30-55); Mean Corpuscular Hemoglobin 29.4 pg (27-33); Mean Corpuscular Volume 88.4 fl (82-101); Mean Platelet Volume 8.4 fL (7.4-10.4); Monocytes # 0.5 10^3/uL (0.2-0.9); Monocytes % 6.1 %; Neutrophils # 4.35 10^3/uL (1.8-7.7); Neutrophils % 51.4 %; Nucleated Red Blood Cells % 0 %; Platelet Count 302 10^3/cmm (157-399); Red Blood Count 4.83 10^6/uL (3.85-5.65); Red Cell Distribution Width 13.2 % (12.1-15.1); White Blood Count 8.46 10^3/uL (3.29-11.43)
[2024-07-09 23:48] LABS: Troponin(5th) Baseline 8 ng/L (0-15)
[2024-07-09 23:52] LABS: Alanine Aminotransferase 60 U/L (0-41); Albumin Level 4.2 g/dL (3.5-5.2); Alkaline Phosphatase 90 U/L (40-130); Anion Gap 14.6 (5-19); Aspartate Amino Transferase 37 U/L (0-40); Blood Urea Nitrogen 15 mg/dL (6-20); Carbon Dioxide 26 mmol/L (22-29); Chloride 104 mmol/L (98-107); Creatinine Clr Calc Pharmacy 121.9823; Globulin 2.5 g/dL (1.3-4.6); Glomerular Filtration Rate 91.3 mL/min (90-130); Glucose 198 mg/dL (65-115); Osmolality Calculated 298 mOsm/kg (285-295); Potassium 3.6 mmol/L (3.5-5.1); Sodium 141 mmol/L (136-145); Total Bilirubin 0.2 mg/dL (0.15-1.2); Total Protein 6.7 g/dL (6.6-8.7)
[2024-07-10] VITALS (50 sets, daily range): BP systolic 92–161; BP diastolic 63–118; PULSE 65–89; RESP 12–28; O2SAT 89–100
[2024-07-10] MEDS: lidocaine 2% viscous 15 ML, aluminum-mag hydrox-simethicon 30 ML, sucralfate oral liq 1 GM PO (01:38)
--- NOTE | 2024-07-10 01:50 | ED_ITS ---
HPI - Arrhythmia/Palpitations 2 General: Chief Complaint: Arrhythmia/Palpitations Stated Complaint: chest pain Time Seen by Provider: 07/10/24 01:13 History of Present Illness: 44-year-old male patient, seen last nigh for psychiatric symptoms. He presents after being out in the waiting room for some time. He complains of chest discomfort on and off for the last 3 weeks. He says he has a history of coronary disease with stent placement a few years ago in [place]. He says he also has some epigastric stomach pain. He has had nausea on and off. He did not mention these complaints when he was here earlier in the evening. Related Data Previous Rx's Medication Instructions Recorded alprazolam 1 mg tablet 1 mg PO QID 15 days #60 tabs 04/05/24 atorvastatin 40 mg tablet 40 mg PO BEDTIME #30 tabs 04/05/24 clopidogrel 75 mg tablet (Plavix) 75 mg PO DAILY #30 tabs 04/05/24 duloxetine 30 mg capsule,delayed 90 mg (3 x 30 mg) PO DAILY #90 caps 04/05/24 release famotidine 20 mg tablet 20 mg PO BID 30 days #60 tabs 04/05/24 gabapentin 600 mg tablet 600 mg PO TID #90 tabs 04/05/24 glimepiride 2 mg tablet 3 mg (1.5 x 2 mg) PO BIDAC #90 tabs 04/05/24 lisinopril 20 1 tab PO DAILY #30 tabs 04/05/24 mg-hydrochlorothiazide 25 mg tablet metformin 500 mg tablet 1,000 mg (2 x 500 mg) PO BIDWM 04/05/24 #120 tabs metoprolol succinate 25 mg 25 mg PO DAILY #30 tabs 04/05/24 tablet,extended release 24 hr nitroglycerin 0.4 mg sublingual 0.4 mg sublingual PRN PRN Chest 04/05/24 tablet (Nitrostat) Pain #30 tabs rivaroxaban 2.5 mg tablet (Xarelto) 2.5 mg PO BID #60 tabs 04/05/24 sitagliptin phosphate 100 mg 100 mg PO DAILY #30 tabs 04/05/24 tablet (Januvia) alprazolam 1 mg tablet (Xanax) 1 mg PO BID #20 tabs 05/22/24 aspirin 325 mg tablet 325 mg PO DAILY #30 tabs 06/09/24 clopidogrel 75 mg tablet (Plavix) 75 mg PO DAILY #30 tabs 06/09/24 lisinopril 20 1 tab PO DAILY #30 tabs 06/09/24 mg-hydrochlorothiazide 25 mg tablet lorazepam 1 mg tablet 0.5 mg (1/2 x 1 mg) buccal TID PRN 06/09/24 anxiety #30 tabs mupirocin 2 % topical ointment 1 applic topical BID #22 grams 06/09/24 alprazolam 1 mg tablet (Xanax) 1 mg PO QID #30 tabs 07/09/24 Allergies Allergy/AdvReac Type Severity Reaction Status Date / Time codeine Allergy ALGY-Hives Verified 07/09/24 19:19 ketorolac [From Toradol] Allergy ALGY-Hives Verified 07/09/24 19:19 trazodone Allergy ALGY-Difficulty Verified 07/09/24 19:19 Swallowing PFSH ED 2 PFSH: Medical History Social discord Arteriovenous graft infection Alcohol dependence Psychiatric care 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 Prediabetes Erectile dysfunction Chronic pain in left shoulder Had pain present when seen 12/2021 on his first visit and thought he might have a rotator cuff tear then Generalized anxiety disorder with panic attacks Benzodiazepine abuse Dental caries associated with enamel hypomineralization Cigarette smoker Claudication in peripheral vascular disease Since 2017 with walking 100 yards or less Chronic low back pain Torn rotator cuff Hypertension Depression Surgical History History of coronary angioplasty with insertion of stent History of skin graft Split thickness skin graft of left lower extremity?03/01/2024 Family History Other CAD (coronary artery disease) Social History Smoking and tobacco/nicotine status: current every day tobacco/nicotine user cigarettes Packs smoked per day: 2 Alcohol intake: current Alcohol intake frequency: few times a week Substance/Drug Use: never Marital status: Single Number of children: 0 Current occupational status: employed Physical Exam 2 Const: COMMON NORMALS: no acute distress GENERAL APPEARANCE: cooperative; not ill appearing and not frail appearing HENMT: COMMON NORMALS: normocephalic, atraumatic and Normal external nose present HEAD & SCALP: normocephalic and atraumatic FACE & SINUS: normal facial exam and face symmetric NOSE: Normal external nose present Eye: COMMON NORMALS: Equal, round and reactive pupils present and EOMs intact bilaterally PUPIL: Yes Equal, round and reactive pupils present Neck/C-Spine: GENERAL: Yes trachea midline Chest: CHEST: Yes Symmetrical chest wall rise Resp: COMMON NORMALS: normal respiratory effort, No retractions, No use of accessory muscles and clear to auscultation bilaterally AUSCULTATION: clear to auscultation bilaterally Cardio: COMMON NORMALS: regular rate and regular rhythm RATE: regular rate RHYTHM: regular rhythm GI: COMMON NORMALS: Normal to inspection, nondistended, normoactive bowel sounds present Extremity: COMMON NORMALS: no pedal edema Neuro: FARHAD COMA SCALE: document GCS findings Farhad coma scale eye opening: Spontaneous Farhad coma scale verbal response: Orientated Farhad coma scale motor response: Obey commands Farhad coma scale total score: 15 S ENSORY EXAM: Yes extremities (intact) Psych: COMMON NORMALS: speech normal SPEECH: Yes normal speech Skin: COMMON NORMALS: no rashes or lesions noted GENERAL SKIN EXAM: no rashes or lesions noted Course 2 Vital Signs: Vital signs: Vital Signs Temperature 97.6 F 07/09/24 22:44 Pulse Rate 79 07/10/24 02:10 Respiratory Rate 23 H 07/10/24 02:10 Blood Pressure 133/97 07/10/24 02:10 Pulse Oximetry 97 07/10/24 02:10 Oxygen Delivery Me thod Room Air 07/09/24 22:44 MDM - Arrhythmia/Palpitations Medical Decision Making Blood sugar is 198. Other laboratory is not remarkable. EKG shows no acute ST wave changes. Chest x-ray from prior visit a couple of hours ago was normal. Delta troponin is 1 and 2 hours. The patient is sleeping, resting comfortably in his room. He was given a GI cocktail, as he does have some epigastric tenderness. He will be allowed discharge. He is stable. Return for worsening symptoms. Outpatient follow-up. Lab Data 07/09/24 23:25 07/09/24 23:25 Laboratory Results WBC 8.46 10^3/uL (3.29-11.43) 07/09/24 23: RBC 4.83 10^6/uL (3.85-5.65) 07/09/24 23: Hgb 14.20 g/dL (11.27-16.99) 07/09/24 23: Hct 42.7 % (37-53) 07/09/24 23: MCV 88.4 fl (82-101) 07/09/24 23: MCH 29.4 pg (27-33) 07/09/24 23: MCHC 33.3 g/dL (30-55) 07/09/24 23: RDW 13.2 % (12.1-15.1) 07/09/24: Plt Count 302 10^3/cmm (157-399) 07/09/24 23: MPV 8.4 fL (7.4-10.4) 07/09/24 23: Neut % (Auto) 51.4 % 07/09/24 23: Lymph % (Auto) 40.0 % 07/09/24 23: [place] % (Auto) 6.1 % 07/09/24 23: Eos % (Auto) 1.3 % 07/09/24 23: Baso % (Auto) 0.7 % 07/09/24 23: Neut # (Auto) 4.35 10^3/uL (1.8-7.7) 07/09/24 23: Lymph # (Auto) 3.4 10^3/uL (0.8-4.8) 07/09/24 23: [place] # (Auto) 0.5 10^3/uL (0.2-0.9) 07/09/24 23: Eos # (Auto) 0.1 10^3/uL (0.0-0.8) 07/09/24 23: Baso # (Auto) 0.1 10^3/uL (0.0-0.1) 07/09/24 23: Nucleated RBC % (auto) 0 % 07/09/24 23: Nucleated RBCs # 0.0 /100WBC 07/09/24 23: Sodium 141 mmol/L (136-145) 07/09/24 23: Potassium 3.6 mmol/L (3.5-5.1) 07/09/24 23:25 Chloride 104 mmol/L (98-107) 07/09/24 23:25 Carbon Dioxide 26 mmol/L (22-29) 07/09/24 23:25 Anion Gap 14.6 (5-19) 07/09/24 23:25 BUN 15 mg/dL (6-20) 07/09/24 23:25 Creatinine 0.9 mg/dL (0.7-1.2) 07/09/24 23:25 GFR Calculation 91.3 mL/min (90-130) 07/09/24 23:25 Glucose 198 mg/dL (65-115) H 07/09/24 23:25 Calculated Osmolality 298 mOsm/kg (285-295) H 07/09/24 23:25 Calcium 9.0 mg/dL (8.5-10.5) 07/09/24 23:25 Total Bilirubin 0.2 mg/dL (0.15-1.2) 07/09/24 23:25 AST 37 U/L (0-40) 07/09/24 23:25 ALT 60 U/L (0-41) H 07/09/24 23:25 Alkaline Phosphatase 90 U/L (40-130) 07/09/24 23:25 Troponin T Baseline 8 ng/L (0-15) 07/09/24 23:25 Troponin T 120 Minute 9.06 ng/L (0-15) 07/10/24 01:35 Delta Troponin T 1.06 ABS# (0-10) 07/10/24 01:35 Total Protein 6.7 g/dL (6.6-8.7) 07/09/24 23:25 Albumin 4.2 g/dL (3.5-5.2) 07/09/24 23:25 Globulin 2.5 g/dL (1.3-4.6) 07/09/24 23:25 No radiology studies performed this visit Discharge Plan Discharge Patient Disposition: Home Clinical Impression: Chest pain Condition: Stable Prescriptions: No Action lorazepam 1 mg tablet 0.5 mg buccal TID PRN (Reason: anxiety) Qty: 30 0RF lisinopril-hydrochlorothiazide 20-25 mg tablet 1 tab PO DAILY Qty: 30 0RF clopidogrel [Plavix] 75 mg tablet 75 mg PO DAILY Qty: 30 0RF aspirin 325 mg tablet 325 mg PO DAILY Qty: 30 0RF mupirocin 2 % ointment 1 applic topical BID Qty: 22 0RF Xanax 1 mg tablet 1 mg PO BID Qty: 20 0RF atorvastatin 40 mg tablet 40 mg PO BEDTIME Qty: 30 1RF metformin 500 mg Tablet 1,000 mg PO BIDWM Qty: 120 1RF gabapentin 600 mg tablet 600 mg PO TID Qty: 90 1RF alprazolam 1 mg tablet 1 mg PO QID 15 Days Qty: 60 1RF Plavix 75 mg tablet 75 mg PO DAILY Qty: 30 1RF glimepiride 2 mg Tablet 3 mg PO BIDAC Qty: 90 1RF famotidine 20 mg Tablet 20 mg PO BID 30 Days Qty: 60 1RF Nitrostat 0.4 mg tablet, sublingual 0.4 mg sublingual PRN PRN (Reason: Chest Pain) Qty: 30 1RF lisinopril-hydrochlorothiazide 20-25 mg tablet 1 tab PO DAILY Qty: 30 1RF metoprolol succinate 25 mg tablet extended release 24 hr 25 mg PO DAILY Qty: 30 1RF duloxetine 30 mg capsule,delayed release(DR/EC) 90 mg PO DAILY Qty: 90 1RF Januvia 100 mg Tablet 100 mg PO DAILY Qty: 30 1RF Xarelto 2.5 mg Tablet 2.5 mg PO BID Qty: 60 1RF alprazolam [Xanax] 1 mg tablet 1 mg PO QID Qty: 30 0RF Discharge Orders: Discharge ED (Routine); Ordered 07/10/24 Ordered By: Zay Beckman Referrals: Nilesh Hutchinson MD [Primary Care Provider] - 1-3 days Patient Instructions: Chest Wall Pain (ED), Opioid Safety, Pain Management Coding Level of Care Code ED Director Alumni Relations for Adam Adair
[2024-07-10 01:57] LABS: Troponin 5 2HR 9.06 ng/L (0-15); Troponin 5 2HR Delta 1.06 ABS# (0-10)
--- NOTE | 2024-07-10 02:11 | ECG_ITS ---
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 Measurements Intervals [place] Rate: 77 P: 34 MT: 206 QRS: 49 QRSD: 124 T: 45 QT: 382 QTc: 434 Interpretive Statements SINUS RHYTHM MODERATE INTRAVENTRICULAR CONDUCTION DELAY [110+ ms QRS DURATION] Compared to ECG 07/09/2024 22:37:41 No significant changes Electronically Signed On 07-10-2024 14:14:20 CDT by Michael Cabrera M.D. [email or web address]
== END 2024-07-10 05:39 | disposition home or self-care (01) ==
PROVIDERS: Emergency Provider Emergency Medicine; PCP Family Medicine Adult Medicine
DX: R07.9 Chest pain, unspecified (principal); Z79.02 Long term (current) use of antithrombotics/antiplatelets; Z79.82 Long term (current) use of aspirin; Z79.84 Long term (current) use of oral hypoglycemic drugs; F17.210 Nicotine dependence, cigarettes, uncomplicated; I10 Essential (primary) hypertension
CPT/HCPCS: 36415; 80053; 84484; 85025; 93005; 99284

== ENCOUNTER 2024-07-26 04:13 | Emergency (ER) | payer MEDICAID, SELFPAY ==
[2024-07-26 04:16] VITALS: BP 188/134; PULSE 76; RESP 18; TEMP 36.6; O2SAT 100; BMI 37.5
--- NOTE | 2024-07-26 04:22 | ECG_ITS ---
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 Measurements Intervals [place] Rate: 59 P: -5 [place]: 209 QRS: 20 QRSD: 126 T: 32 QT: 435 QTc: 431 Interpretive Statements SINUS BRADYCARDIA Compared to ECG 07/10/2024 02:11:44 heart rate is reduced Electronically Signed On 07-26-2024 08:31:21 CDT by Sydni Carpenter M.D. [email or web address]
--- NOTE | 2024-07-26 04:22 | XRR_ITS ---
PROCEDURE INFORMATION: Exam: XR Chest Exam date and time: 07/26/2024 4:59 AM Age: 44 years old Clinical indication: Pain; Chest pressure; Prior surgery; Surgery date: 6+ months; Surgery type: Stents 6yrs ago; Additional info: Chest pain TECHNIQUE: Imaging protocol: Radiologic exam of the chest. Views: 1 view. COMPARISON: CR (CHEST, ) 07/09/2024 7:43 PM FINDINGS: Lungs: Hyperinflated lungs Pleural spaces: Unremarkable. No pleural effusion. No pneumothorax. Heart/Mediastinum: Unremarkable. No cardiomegaly. Bones/joints: Unremarkable. XR/XR chest 1V portable [id number] IMPRESSION: Hyperinflated lungs. No acute process
[2024-07-26 04:42] LABS: Basophils # 0.1 10^3/uL (0.0-0.1); Basophils % 0.9 %; Eosinophils # 0.2 10^3/uL (0.0-0.8); Eosinophils % 2.3 %; Hematocrit 43.9 % (37-53); Lymphocytes # 3.3 10^3/uL (0.8-4.8); Lymphocytes % 51.7 %; Mean Corpuscular Hemoglobin 29.2 pg (27-33); Mean Corpuscular Volume 88.5 fl (82-101); Mean Platelet Volume 8.1 fL (7.4-10.4); Monocytes # 0.4 10^3/uL (0.2-0.9); Monocytes % 6.4 %; Neutrophils # 2.46 10^3/uL (1.8-7.7); Neutrophils % 38.4 %; Nucleated Red Blood Cells % 0 %; Platelet Count 273 10^3/cmm (157-399); Red Blood Count 4.96 10^6/uL (3.85-5.65); Red Cell Distribution Width 12.8 % (12.1-15.1); White Blood Count 6.42 10^3/uL (3.29-11.43)
[2024-07-26 05:02] LABS: Troponin(5th) Baseline 9 ng/L (0-15)
--- NOTE | 2024-07-26 05:02 | ED_ITS ---
HPI - Chest Pain 2 General: Chief Complaint: Chest Pain Stated Complaint: Chest Pains Time Seen by Provider: 07/26/24 05:00 History of Present Illness: 44-year-old man with history of psychiat lauren issues and coronary artery disease status post stents in the past who presents emergency room with left-sided chest pain. He states he has a pressure and goes into his left arm. No nausea or vomiting. No shortness of breath. No diaphoresis. He has not been taking his medications because has been out. He says he supposed to go see his primary today he thinks Related Data Previous Rx's Medication Instructions Recorded alprazolam 1 mg tablet 1 mg PO QID 15 days #60 tabs 04/05/24 atorvastatin 40 mg tablet 40 mg PO BEDTIME #30 tabs 04/05/24 clopidogrel 75 mg tablet (Plavix) 75 mg PO DAILY #30 tabs 04/05/24 duloxetine 30 mg capsule,delayed 90 mg (3 x 30 mg) PO DAILY #90 caps 04/05/24 release famotidine 20 mg tablet 20 mg PO BID 30 days #60 tabs 04/05/24 gabapentin 600 mg tablet 600 mg PO TID #90 tabs 04/05/24 glimepiride 2 mg tablet 3 mg (1.5 x 2 mg) PO BIDAC #90 tabs 04/05/24 lisinopril 20 1 tab PO DAILY #30 tabs 04/05/24 mg-hydrochlorothiazide 25 mg tablet metformin 500 mg tablet 1,000 mg (2 x 500 mg) PO BIDWM 04/05/24 #120 tabs metoprolol succinate 25 mg 25 mg PO DAILY #30 tabs 04/05/24 tablet,extended release 24 hr nitroglycerin 0.4 mg sublingual 0.4 mg sublingual PRN PRN Chest 04/05/24 tablet (Nitrostat) Pain #30 tabs rivaroxaban 2.5 mg tablet (Xarelto) 2.5 mg PO BID #60 tabs 04/05/24 sitagliptin phosphate 100 mg 100 mg PO DAILY #30 tabs 04/05/24 tablet (Januvia) alprazolam 1 mg tablet (Xanax) 1 mg PO BID #20 tabs 05/22/24 aspirin 325 mg tablet 325 mg PO DAILY #30 tabs 06/09/24 clopidogrel 75 mg tablet (Plavix) 75 mg PO DAILY #30 tabs 06/09/24 lisinopril 20 1 tab PO DAILY #30 tabs 06/09/24 mg-hydrochlorothiazide 25 mg tablet lorazepam 1 mg tablet 0.5 mg (1/2 x 1 mg) buccal TID PRN 06/09/24 anxiety #30 tabs mupirocin 2 % topical ointment 1 applic topical BID #22 grams 06/09/24 alprazolam 1 mg tablet (Xanax) 1 mg PO QID #30 tabs 07/09/24 Allergies Allergy/AdvReac Type Severity Reaction Status Date / Time codeine Allergy ALGY-Hives Verified 07/09/24 19:19 ketorolac [From Toradol] Allergy ALGY-Hives Verified 07/09/24 19:19 trazodone Allergy ALGY-Difficulty Verified 07/09/24 19:19 Swallowing Review of Systems 2 Narrative: Constitutional symptoms: Negative except as documented in HPI. Skin symptoms: Negative except as documented in HPI. Eye symptoms: Negative except as documented in HPI. ENMT symptoms: Negative except as documented in HPI. Respiratory symptoms: Negative except as documented in HPI. Cardiovascular symptoms: Negative except as documented in HPI. Gastrointestinal symptoms: Negative except as documented in HPI. Genitourinary symptoms: Negative except as documented in HPI. Musculoskeletal symptoms: Negative except as documented in HPI. Neurologic symptoms: Negative except as documented in HPI. Psychiatric symptoms: Negative except as documented in HPI. Endocrine symptoms: Negative except as documented in HPI. PFSH ED 2 PFSH: Medical History Social discord Arteriovenous graft infection Alcohol dependence Psychiatric care 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 Prediabetes Erectile dysfunction Chronic pain in left shoulder Had pain present when seen 12/2021 on his first visit and thought he might have a rotator cuff tear then Generalized anxiety disorder with panic attacks Benzodiazepine abuse Dental caries associated with enamel hypomineralization Cigarette smoker Claudication in peripheral vascular disease Since 2017 with walking 100 yards or less Chronic low back pain Torn rotator cuff Hypertension Depression Surgical History History of coronary angioplasty with insertion of stent History of skin graft Split thickness skin graft of left lower extremity?03/01/2024 Family History Other CAD (coronary artery disease) Social History Smoking and tobacco/nicotine status: current every day tobacco/nicotine user cigarettes Packs smoked per day: 2 Alcohol intake: current Alcohol intake frequency: few times a week Substance/Drug Use: never Marital status: Single Number of children: 0 Current occupational status: employed Physical Exam 2 Narrative: EXAM NARRATIVE: General: Alert, no acute distress. Skin: Warm, dry. Head: Normocephalic, atraumatic. Neck: Supple, trachea midline. Eye: Extraocular movements are intact. Ears, nose, mouth and throat: mucosa moist. Cardiovascular: Regular, Normal peripheral perfusion. Respiratory: Lungs are clear to auscultation, respirations are non-labored, breath sounds are equal, Symmetrical chest wall expansion. Gastrointestinal: Soft, Nontender, Non distended Musculoskeletal: Normal ROM, no deformity. Neurological: Alert and oriented, No focal neurological deficit observed. Psychiatric: Cooperative, appropriate mood & affect. Course 2 Vital Signs: Vital signs: Vital Signs Temperature 97.8 F 07/26/24 04:16 Pulse Rate 76 07/26/24 04:16 Respiratory Rate 18 07/26/24 04:16 Blood Pressure 188/134 07/26/24 04:16 Pulse Oximetry 100 07/26/24 04:16 Oxygen Delivery Me thod Room Air 07/26/24 04:16 MDM - Chest Pain Medical Decision Making Differential diagnosis for patient with chest pain includes but is not limited to and based on the above HPI, review of systems and physical exam: Pneumonia. unstable angina. angina. Acute coronary syndrome / CA. Pulmonary embolism. Costochondritis / musculoskeletal. Pleurisy. Pericarditis. Esophageal spasm. Pancreatis. Cholecystitis. Orders placed to evaluate differential diagnosis based on the above differential, HPI and physical exam Chest x-ray: No acute process. No infiltrate. No pneumothorax. This was reviewed and interpreted by myself the ER physician. EKG: Time 423. Rate 59. Sinus bradycardia, No ST-T changes, no ectopy, normal FL & QRS intervals, This was reviewed and interpreted by myself the ER physician at 4:27 AM. Lab Review: Laboratory results were reviewed and interpreted by myself the emergency room physician. Lab work is unremarkable. No elevation in troponin. And creatinine are not elevated. Glucose is mildly elevated at 162. I reviewed the patient's medical record. Reexamination: Patient remained stable. No increased work of breathing. No altered mental status. No focal motor deficits. Assessment and plan: Anxiety Noncardiac chest pain Medical noncompliance Hypertension ?Patient given Ativan here and blood pressure has been improving. - Discharged home - Discussed plan with patient. Answered any questions. - Evaluation and treatment of this problem were appropriate in the emergency setting. Lab Data 07/26/24 04:35 07/26/24 04:35 Radiology Impressions Chest X-Ray 07/26/24 04:22 IMPRESSION: Hyperinflated lungs. No acute process Laboratory Results WBC 6.42 10^3/uL (3.29-11.43) 07/26/24 04:35 RBC 4.96 10^6/uL (3.85-5.65) 07/26/24 04:35 Hgb 14.50 g/dL (11.27-16.99) 07/26/24 04:35 Hct 43.9 % (37-53) 07/26/24 04:35 MCV 88.5 fl (82-101) 07/26/24 04:35 MCH 29.2 pg (27-33) 07/26/24 04:35 MCHC 33.0 g/dL (30-55) 07/26/24 04:35 RDW 12.8 % (12.1-15.1) 07/26/24 04:35 Plt Count 273 10^3/cmm (157-399) 07/26/24 04:35 MPV 8.1 fL (7.4-10.4) 07/26/24 04:35 Neut % (Auto) 38.4 % 07/26/24 04:35 Lymph % (Auto) 51.7 % 07/26/24 04:35 [place] % (Auto) 6.4 % 07/26/24 04:35 Eos % (Auto) 2.3 % 07/26/24 04:35 Baso % (Auto) 0.9 % 07/26/24 04:35 Neut # (Auto) 2.46 10^3/uL (1.8-7.7) 07/26/24 04:35 Lymph # (Auto) 3.3 10^3/uL (0.8-4.8) 07/26/24 04:35 [place]iles # (Auto) 0.4 10^3/uL (0.2-0.9) 07/26/24 04:35 Eos # (Auto) 0.2 10^3/uL (0.0-0.8) 07/26/24 04:35 Baso # (Auto) 0.1 10^3/uL (0.0-0.1) 07/26/24 04:35 Nucleated RBC % (auto) 0 % 07/26/24 04:35 Nucleated RBCs # 0.0 /100WBC 07/26/24 04:35 Sodium 140 mmol/L (136-145) 07/26/24 04:35 Potassium 3.8 mmol/L (3.5-5.1) 07/26/24 04:35 Chloride 106 mmol/L (98-107) 07/26/24 04:35 Carbon Dioxide 25 mmol/L (22-29) 07/26/24 04:35 Anion Gap 12.8 (5-19) 07/26/24 04:35 BUN 13 mg/dL (6-20) 07/26/24 04:35 Creatinine 0.8 mg/dL (0.7-1.2) 07/26/24 04:35 GFR Calculation 104.5 mL/min (90-130) 07/26/24 04:35 Glucose 162 mg/dL (65-115) H 07/26/24 04:35 Calculated Osmolality 294 mOsm/kg (285-295) 07/26/24 04:35 Calcium 8.7 mg/dL (8.5-10.5) 07/26/24 04:35 Total Bilirubin 0.3 mg/dL (0.15-1.2) 07/26/24 04:35 AST 30 U/L (0-40) 07/26/24 04:35 ALT 44 U/L (0-41) H 07/26/24 04:35 Alkaline Phosphatase 78 U/L (40-130) 07/26/24 04:35 Troponin T Baseline 9 ng/L (0-15) 07/26/24 04:35 Total Protein 6.4 g/dL (6.6-8.7) L 07/26/24 04:35 Albumin 4.1 g/dL (3.5-5.2) 07/26/24 04:35 Globulin 2.3 g/dL (1.3-4.6) 07/26/24 04:35 All radiology interpretation(s) finalized by discharge Discharge Plan Discharge Patient Disposition: Home Clinical Impression: Non-cardiac chest pain, Anxiety, Hypertension Condition: Stable Prescriptions: No Action lorazepam 1 mg tablet 0.5 mg buccal TID PRN (Reason: anxiety) Qty: 30 0RF lisinopril-hydrochlorothiazide 20-25 mg tablet 1 tab PO DAILY Qty: 30 0RF clopidogrel [Plavix] 75 mg tablet 75 mg PO DAILY Qty: 30 0RF aspirin 325 mg tablet 325 mg PO DAILY Qty: 30 0RF mupirocin 2 % ointment 1 applic topical BID Qty: 22 0RF Xanax 1 mg tablet 1 mg PO BID Qty: 20 0RF atorvastatin 40 mg tablet 40 mg PO BEDTIME Qty: 30 1RF metformin 500 mg Tablet 1,000 mg PO BIDWM Qty: 120 1RF gabapentin 600 mg tablet 600 mg PO TID Qty: 90 1RF alprazolam 1 mg tablet 1 mg PO QID 15 Days Qty: 60 1RF Plavix 75 mg tablet 75 mg PO DAILY Qty: 30 1RF glimepiride 2 mg Tablet 3 mg PO BIDAC Qty: 90 1RF famotidine 20 mg Tablet 20 mg PO BID 30 Days Qty: 60 1RF Nitrostat 0.4 mg tablet, sublingual 0.4 mg sublingual PRN PRN (Reason: Chest Pain) Qty: 30 1RF lisinopril-hydrochlorothiazide 20-25 mg tablet 1 tab PO DAILY Qty: 30 1RF metoprolol succinate 25 mg tablet extended release 24 hr 25 mg PO DAILY Qty: 30 1RF duloxetine 30 mg capsule,delayed release(DR/EC) 90 mg PO DAILY Qty: 90 1RF Januvia 100 mg Tablet 100 mg PO DAILY Qty: 30 1RF Xarelto 2.5 mg Tablet 2.5 mg PO BID Qty: 60 1RF alprazolam [Xanax] 1 mg tablet 1 mg PO QID Qty: 30 0RF Discharge Orders: Discharge ED (Routine); Ordered 07/26/24 Ordered By: Cindy Tompkins Referrals: Nilesh Hutchinson MD [Primary Care Provider] - Discharge Diet: Usual diet Discharge Activity: Resume usual activity Patient Instructions: Noncardiac Chest Pain (ED), Opioid Safety, Pain Management Activity Restrictions/Additional Instructions: Please see your doctor today and resume taking your home medications. Thank you for choosing [facility] for your healthcare needs today. Please realize this is an emergency room and that we are providing you with a medical screening exam and this may not be complete and all inclusive of all the testing and or work up that you may need to determine your ailment or severity of your illness. You have been screened and evaluated and felt safe for discharge. Health conditions do change or evolve sometimes and as such it is important that you follow up with your Primary Doctor to be re checked, 3-5 days is a general good time frame for follow up. You are always welcome to return to the ED for re assessment if your symptoms are worsening or you have new concerns Coding Level of Care Code ED Salad Bar Clerk for Adam Adair
[2024-07-26 05:05] LABS: Alanine Aminotransferase 44 U/L (0-41); Albumin Level 4.1 g/dL (3.5-5.2); Alkaline Phosphatase 78 U/L (40-130); Anion Gap 12.8 (5-19); Aspartate Amino Transferase 30 U/L (0-40); Blood Urea Nitrogen 13 mg/dL (6-20); Calcium 8.7 mg/dL (8.5-10.5); Carbon Dioxide 25 mmol/L (22-29); Chloride 106 mmol/L (98-107); Creatinine Clr Calc Pharmacy 137.2301; Globulin 2.3 g/dL (1.3-4.6); Glomerular Filtration Rate 104.5 mL/min (90-130); Glucose 162 mg/dL (65-115); Osmolality Calculated 294 mOsm/kg (285-295); Potassium 3.8 mmol/L (3.5-5.1); Sodium 140 mmol/L (136-145); Total Bilirubin 0.3 mg/dL (0.15-1.2); Total Protein 6.4 g/dL (6.6-8.7)
[2024-07-26 05:37] VITALS: BP 154/114; PULSE 74; O2SAT 100
[2024-07-26] MEDS: LORazepam 2 mg Tablet PO (05:37)
== END 2024-07-26 05:38 | disposition home or self-care (01) ==
PROVIDERS: Emergency Provider Emergency Medicine; PCP Family Medicine Adult Medicine
DX: R07.89 Other chest pain (principal); F41.9 Anxiety disorder, unspecified; Z79.02 Long term (current) use of antithrombotics/antiplatelets; Z79.82 Long term (current) use of aspirin; Z79.84 Long term (current) use of oral hypoglycemic drugs; I10 Essential (primary) hypertension; F17.210 Nicotine dependence, cigarettes, uncomplicated
CPT/HCPCS: 36415; 71045; 80053; 84484; 85025; 93005; 99285

== ENCOUNTER 2024-08-07 13:02 | Emergency (ER) | payer MEDICAID, SELFPAY ==
[2024-08-07 13:04] VITALS: BP 131/97; PULSE 86; RESP 18; TEMP 36.8; O2SAT 98; BMI 37.5
--- NOTE | 2024-08-07 13:05 | XRR_ITS ---
PROCEDURE INFORMATION: Exam: XR Chest Exam date and time: 08/07/2024 1:24 PM Age: 44 years old Clinical indication: Pain; Angina pectoris; Additional info: Cp TECHNIQUE: Imaging protocol: Radiologic exam of the chest. Views: 1 view. COMPARISON: CR (CHEST, ) 07/26/2024 4:59 AM FINDINGS: Lungs: No focal consolidation. Pleural spaces: No significant pleural fluid. No pneumothorax detected. Heart/Mediastinum: Heart size within normal range. No pulmonary vascular congestion. Bones/joints: No obvious acute abnormality. XR/XR chest 1V portable [id number] IMPRESSION: No acute cardiopulmonary abnormality detected on AP portable chest radiograph.
--- NOTE | 2024-08-07 13:06 | ED.C_ITS ---
HPI - Psych 2 General: Chief Complaint: Psychiatric Symptoms Stated Complaint: SI Time Seen by Provider: 08/07/24 13:03 Source: patient and EMS Mode of arrival: EMS Limitations: no limitations History of Present Illness: 44-year-old male states he has been unde r large amounts of stress. He states the stresses of been caused him to have chest pain he states has been having for weeks he has been seen for that previously states he is not having suicidal ideations. He states he does have a plan of jumping off a bridge denies any worse improved factors. Associated symptoms: Reports depression and suicidal ideation Related Data Previous Rx's Medication Instructions Recorded gabapentin 600 mg tablet 600 mg PO TID #90 tabs 04/05/24 aspirin 325 mg tablet 325 mg PO DAILY #30 tabs 06/09/24 alprazolam 1 mg tablet (Xanax) 1 mg PO QID #30 tabs 07/09/24 clopidogrel 75 mg tablet (Plavix) 75 mg PO DAILY #30 tabs 07/27/24 lisinopril 20 1 tab PO DAILY #30 tabs 07/27/24 mg-hydrochlorothiazide 25 mg tablet nitroglycerin 0.4 mg sublingual 0.4 mg sublingual PRN PRN Chest 07/27/24 tablet (Nitrostat) Pain #30 tabs Allergies Allergy/AdvReac Type Severity Reaction Status Date / Time codeine Allergy ALGY-Hives Verified 07/27/24 14:31 ketorolac [From Toradol] Allergy ALGY-Hives Verified 07/27/24 14:31 trazodone Allergy ALGY-Difficulty Verified 07/27/24 14:31 Swallowing Review of Systems 2 Const: Denies: fever(s), chills, body aches or change in appetite ENMT: Denies: throat pain or dental pain Card: Reports: chest pain Resp: Denies: dyspnea GI: Denies: abdominal pain, nausea, vomiting or diarrhea Musc: Denies: neck pain or back pain Skin/Breast: Denies: rash Neuro: Denies: headache(s) Psych: Reports: depression and suicidal ideation PFSH ED 2 PFSH: Medical History Social discord Arteriovenous graft infection Alcohol dependence Psychiatric care 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 Prediabetes Erectile dysfunction Chronic pain in left shoulder Had pain present when seen 12/2021 on his first visit and thought he might have a rotator cuff tear then Generalized anxiety disorder with panic attacks Benzodiazepine abuse Dental caries associated with enamel hypomineralization Cigarette smoker Claudication in peripheral vascular disease Since 2017 with walking 100 yards or less Chronic low back pain Torn rotator cuff Hypertension Depression Surgical History History of coronary angioplasty with insertion of stent History of skin graft Split thickness skin graft of left lower extremity?03/01/2024 Family History Other CAD (coronary artery disease) Social History Smoking and tobacco/nicotine status: current every day tobacco/nicotine user cigarettes Packs smoked per day: 2 Alcohol intake: current Alcohol intake frequency: few times a week Substance/Drug Use: never Marital status: Single Number of children: 0 Current occupational status: employed Physical Exam 2 Const: COMMON NORMALS: patient oriented x3 and healthy appearing GENERAL APPEARANCE: anxious HENMT: COMMON NORMALS: normocephalic and atraumatic HEAD & SCALP: n ormocephalic and atraumatic Eye: COMMON NORMALS: conjunctivae normal CONJUNCTIVA: Yes conjunctivae normal Neck/C-Spine: COMMON NORMALS: full ROM and supple Chest: COMMONS NORMALS: normal inspection of the chest Resp: COMMON NORMALS: normal respiratory effort, No retractions, No use of accessory muscles and clear to auscultation bilaterally AUSCULTATION: clear to auscultation bilaterally Cardio: COMMON NORMALS: regular rate, regular rhythm and No murmurs present (Cardio) RATE: regular rate RHYTHM: regular rhythm Extremity: COMMON NORMALS: normal to inspection and full ROM Neuro: COMMON NORMALS: patient oriented x3, moves all extremities and no focal motor deficits Psych: COMMON NORMALS: mental status grossly normal, Normal thought process present and cooperative THOUGHT PROCESS: Normal thought process present T HOUGHT CONTENT: Yes Suicidality present Skin: COMMON NORMALS: no rashes or lesions noted and no wounds GENERAL SKIN EXAM: no rashes or lesions noted Course 2 Vital Signs: Vital signs: Vital Signs Temperature 98.2 F 08/07/24 13:11 Pulse Rate 103 H 08/07/24 17:24 Respiratory Rate 18 08/07/24 13:11 Blood Pressure 138/92 08/07/24 17:24 Pulse Oximetry 98 08/07/24 17:24 Oxygen Delivery Me thod Room Air 08/07/24 13:11 MDM - Psych Medical Decision Making Patient presents with depression and anxiety had complained of having some suicidal thoughts patient was seen by Dr. Wagner in the ER who knows him very well it spoke to him at length feels he is not an imminent threat to himself feels he stable for discharge we will resend his 96-hour hold he is to follow-up with PCP and return if worsening he understands agrees to plan did give him information for the crisis center as well. Medical Records I reviewed the patient's medical records. Lab Data I reviewed the patient's lab results. 08/07/24 13:15 08/07/24 13:15 Radiology Impressions Chest X-Ray 08/07/24 13:05 IMPRESSION: No acute cardiopulmonary abnormality detected on AP portable chest radiograph. Laboratory Results WBC 12.51 10^3/uL (3.29-11.43) H 08/07/24 13:15 RBC 5.76 10^6/uL (3.85-5.65) H 08/07/24 13:15 Hgb 16.90 g/dL (11.27-16.99) 08/07/24 13:15 Hct 50.4 % (37-53) 08/07/24 13:15 MCV 87.5 fl (82-101) 08/07/24 13:15 MCH 29.3 pg (27-33) 08/07/24 13:15 MCHC 33.5 g/dL (30-55) 08/07/24 13:15 RDW 13.1 % (12.1-15.1) 08/07/24 13:15 Plt Count 373 10^3/cmm (157-399) 08/07/24 13:15 MPV 8.4 fL (7.4-10.4) 08/07/24 13:15 Neut % (Auto) 51.5 % 08/07/24 13:15 Lymph % (Auto) 37.7 % 08/07/24 13:15 [place] % (Auto) 7.6 % 08/07/24 13:15 Eos % (Auto) 1.8 % 08/07/24 13:15 Baso % (Auto) 0.8 % 08/07/24 13:15 Neut # (Auto) 6.44 10^3/uL (1.8-7.7) 08/07/24 13:15 Lymph # (Auto) 4.7 10^3/uL (0.8-4.8) 08/07/24 13:15 [place] # (Auto) 1.0 10^3/uL (0.2-0.9) H 08/07/24 13:15 Eos # (Auto) 0.2 10^3/uL (0.0-0.8) 08/07/24 13:15 Baso # (Auto) 0.1 10^3/uL (0.0-0.1) 08/07/24 13:15 Nucleated RBC % (auto) 0 % 08/07/24 13:15 Nucleated RBCs # 0.0 /100WBC 08/07/24 13:15 Sodium 137 mmol/L (136-145) 08/07/24 13:15 Potassium 4.1 mmol/L (3.5-5.1) 08/07/24 13:15 Chloride 97 mmol/L (98-107) L 08/07/24 13:15 Carbon Dioxide 25 mmol/L (22-29) 08/07/24 13:15 Anion Gap 19.1 (5-19) H 08/07/24 13:15 BUN 8 mg/dL (6-20) 08/07/24 13:15 Creatinine 0.8 mg/dL (0.7-1.2) 08/07/24 13:15 GFR Calculation 104.5 mL/min (90-130) 08/07/24 13:15 Glucose 119 mg/dL (65-115) H 08/07/24 13:15 Calculated Osmolality 283 mOsm/kg (285-295) L 08/07/24 13:15 Calcium 9.8 mg/dL (8.5-10.5) 08/07/24 13:15 Total Bilirubin 0.4 mg/dL (0.15-1.2) 08/07/24 13:15 AST 58 U/L (0-40) H 08/07/24 13:15 ALT 57 U/L (0-41) H 08/07/24 13:15 Alkaline Phosphatase 87 U/L (40-130) 08/07/24 13:15 Troponin T Baseline < 6 ng/L (0-15) 08/07/24 13:15 Total Protein 7.6 g/dL (6.6-8.7) 08/07/24 13:15 Albumin 4.8 g/dL (3.5-5.2) 08/07/24 13:15 Globulin 2.8 g/dL (1.3-4.6) 08/07/24 13:15 Urine Opiates Screen Negative ng/mL (Negative) 08/07/24 13:12 Ur Barbiturates Screen Negative ng/mL (Negative) 08/07/24 13:12 Ur Phencyclidine Scrn Negative ng/mL (Negative) 08/07/24 13:12 Ur Amphetamines Screen Negative ng/mL (Negative) 08/07/24 13:12 U Benzodiazepines Scrn Negative ng/mL (Negative) 08/07/24 13:12 Urine Cocaine Screen Negative ng/mL (Negative) 08/07/24 13:12 U Marijuana (THC) Screen Negative ng/mL (Negative) 08/07/24 13:12 Ethyl Alcohol < 10 mg/dL (0-10) 08/07/24 13:15 All radiology interpretation(s) finalized by discharge EKG Data EKG 1: I personally reviewed and interpreted this EKG as follows: EKG interpretation date: 08/07/24 EKG interpretation time: 13:07 Interpretation: nsr hr [address] elevation qrs 114 qtc 424 Discharge Plan Discharge Patient Disposition: Home Clinical Impression: Depression, Acute anxiety, Chest pain Condition: Stable Prescriptions: No Action aspirin 325 mg tablet 325 mg PO DAILY Qty: 30 0RF Nitrostat 0.4 mg tablet, sublingual 0.4 mg sublingual PRN PRN (Reason: Chest Pain) Qty: 30 1RF lisinopril-hydrochlorothiazide 20-25 mg tablet 1 tab PO DAILY Qty: 30 2RF clopidogrel [Plavix] 75 mg tablet 75 mg PO DAILY Qty: 30 2RF gabapentin 600 mg tablet 600 mg PO TID Qty: 90 1RF alprazolam [Xanax] 1 mg tablet 1 mg PO QID Qty: 30 0RF Discharge Orders: Discharge ED (Routine); Ordered 08/07/24 Ordered By: Laura Marshall Referrals: Nilesh Hutchinson MD [Primary Care Provider] - 4-7 days Discharge Diet: Advance as tolerated Discharge Activity: Resume usual activity Patient Instructions: Depression (ED), Anxiety (ED) Coding Level of Care Code ED Recruiting Operations Consultant for Adam Adair
--- NOTE | 2024-08-07 13:07 | ECG_ITS ---
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 Measurements Intervals [place] Rate: 86 P: 3 DE: 166 QRS: 34 QRSD: 114 T: 42 QT: 380 QTc: 457 Interpretive Statements SINUS RHYTHM MODERATE INTRAVENTRICULAR CONDUCTION DELAY [110+ ms QRS DURATION] Compared to ECG 07/26/2024 04:23:18 Intraventricular conduction delay now present Sinus bradycardia no longer present Electronically Signed On 08-10-2024 21:45:56 SOFTWARE QA MANAGER by Darya Clark M.D. [email or web address]
[2024-08-07 13:11] VITALS: BP 131/97; PULSE 86; RESP 18; TEMP 36.8; O2SAT 98
[2024-08-07] MEDS: LORazepam 2 mg/mL INJ 1 mL 1 MG IVP (13:17)
--- NOTE | 2024-08-07 13:43 | PC.NURSE ---
96 hr rights reviewed with patient @3821 with assistance of [facility] commanding officer traffic division Rich. All education reviewed. No verbalized concerns or questions at this time. Patient copy left with patient, and patient was provided a soda.
[2024-08-07 13:52] LABS: Basophils # 0.1 10^3/uL (0.0-0.1); Basophils % 0.8 %; Eosinophils # 0.2 10^3/uL (0.0-0.8); Eosinophils % 1.8 %; Hematocrit 50.4 % (37-53); Lymphocytes # 4.7 10^3/uL (0.8-4.8); Lymphocytes % 37.7 %; Mean Corpuscular HGB Conc 33.5 g/dL (30-55); Mean Corpuscular Hemoglobin 29.3 pg (27-33); Mean Corpuscular Volume 87.5 fl (82-101); Mean Platelet Volume 8.4 fL (7.4-10.4); Monocytes % 7.6 %; Neutrophils # 6.44 10^3/uL (1.8-7.7); Neutrophils % 51.5 %; Nucleated Red Blood Cells % 0 %; Platelet Count 373 10^3/cmm (157-399); Red Blood Count 5.76 10^6/uL (3.85-5.65); Red Cell Distribution Width 13.1 % (12.1-15.1); White Blood Count 12.51 10^3/uL (3.29-11.43)
[2024-08-07 13:55] LABS: Amphetamines Screen Urine Negative (Negative); Barbiturates Screen Urine Negative (Negative); Benzodiazepines Screen Urine Negative (Negative); Cocaine Screen Urine Negative (Negative); Opiate Screen Urine Negative (Negative); PCP Screen Urine Negative (Negative); THC Screen Urine Negative (Negative)
[2024-08-07 13:59] LABS: Alanine Aminotransferase 57 U/L (0-41); Albumin Level 4.8 g/dL (3.5-5.2); Alkaline Phosphatase 87 U/L (40-130); Aspartate Amino Transferase 58 U/L (0-40); Blood Urea Nitrogen 8 mg/dL (6-20); Calcium 9.8 mg/dL (8.5-10.5); Carbon Dioxide 25 mmol/L (22-29); Chloride 97 mmol/L (98-107); Creatinine Clr Calc Pharmacy 137.2301; Globulin 2.8 g/dL (1.3-4.6); Glomerular Filtration Rate 104.5 mL/min (90-130); Glucose 119 mg/dL (65-115); Osmolality Calculated 283 mOsm/kg (285-295); Sodium 137 mmol/L (136-145); Total Bilirubin 0.4 mg/dL (0.15-1.2); Total Protein 7.6 g/dL (6.6-8.7)
[2024-08-07 14:02] LABS: Troponin(5th) Baseline < 6 ng/L (0-15)
[2024-08-07 14:09] LABS: Alcohol Level < 10 mg/dL (0-10); Anion Gap 19.1 (5-19); Potassium 4.1 mmol/L (3.5-5.1)
--- NOTE | 2024-08-07 15:17 | ECG_ITS ---
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 Measurements Intervals [place] Rate: 88 P: 24 NM: 163 QRS: 62 QRSD: 125 T: 45 QT: 382 QTc: 463 Interpretive Statements SINUS RHYTHM POSSIBLE INFERIOR MYOCARDIAL INFARCTION , PROBABLY OLD [30 ms Q WAVE IN II/aVF] Compared to ECG 08/07/2024 13:07:49 Myocardial infarct finding now present Intraventricular conduction delay no longer present Electronically Signed On 08-14-2024 21:18:32 POLICE JUSTICE by Darya Clark M.D. [id number]
[2024-08-07 17:24] VITALS: BP 138/92; PULSE 103; O2SAT 98
[2024-08-07] MEDS: HYDROcodone-acetaminophen 5-325 mg Tablet 1 TAB PO (17:29)
== END 2024-08-07 17:35 | disposition home or self-care (01) ==
PROVIDERS: Emergency Provider Emergency Medicine; PCP Family Medicine Adult Medicine
DX: F41.8 Other specified anxiety disorders (principal); R07.9 Chest pain, unspecified; Z79.82 Long term (current) use of aspirin; F17.210 Nicotine dependence, cigarettes, uncomplicated; I10 Essential (primary) hypertension
CPT/HCPCS: 36415; 71045; 80053; 80306; 80307; 84484; 85025; 93005; 96374; 99285; J2060

== ENCOUNTER 2024-09-25 22:35 | Emergency (ER) | payer MEDICAID, SELFPAY ==
[2024-09-25 22:36] VITALS: BP 125/84; PULSE 108; RESP 18; TEMP 36.7; O2SAT 96; BMI 38.3
--- NOTE | 2024-09-25 22:50 | ED.C_ITS ---
HPI - Psych 2 General: Chief Complaint: Psychiatric Symptoms Stated Complaint: SI Time Seen by Provider: 09/25/24 22:37 Source: patient Mode of arrival: EMS Limitations: no limitations History of Present Illness: Patient is a 44-year-old male who presents to the emergency department via ambulance complaining of suicidal ideations over the past few days. Patient states he was kicked out of his house a few days ago, has been staying with a friend but feels like he is not wanted. States that he is feeling suicidal, no specific plan. States that he took seven 1 mg tablets of his Xanax tonight due to the amount of anxiety, denies taking this in an attempt to hurt himself. States that he is very angry, is not endorsing any specific homicidal ideations. He has been seen here in the neuropsychiatric unit, most recently in March. Also states he was seen at [facility] 4 months ago. States he is only taking Xanax. No hallucinations. MD complaint: suicidal ideation Onset (ago): day(s) Duration: constant History of same: Yes Associated symptoms: Reports depression and suicidal ideation; Deny auditory hallucinations, visual hallucinations or homicidal ideation If self harm: admits thoughts of self harm Related Data Home Medications Medication Instructions Recorded Confirmed gabapentin 400 mg capsule mg 09/25/24 09/25/24 Previous Rx's Medication Instructions Recorded aspirin 325 mg tablet 325 mg PO DAILY #30 tabs 06/09/24 alprazolam 1 mg tablet (Xanax) 1 mg PO QID #30 tabs 07/09/24 clopidogrel 75 mg tablet (Plavix) 75 mg PO DAILY #30 tabs 07/27/24 nitroglycerin 0.4 mg sublingual 0.4 mg sublingual PRN PRN Chest 08/29/24 tablet (Nitrostat) Pain #30 tabs lisinopril 20 1 tab PO DAILY #30 tabs 08/30/24 mg-hydrochlorothiazide 25 mg tablet Allergies Allergy/AdvReac Type Severity Reaction Status Date / Time codeine Allergy ALGY-Hives Verified 09/25/24 22:51 ketorolac [From Toradol] Allergy ALGY-Hives Verified 09/25/24 22:51 trazodone Allergy ALGY-Difficulty Verified 09/25/24 22:51 Swallowing Review of Systems 2 General: Reports: 10 or more systems reviewed and unremarkable except in HPI and below Const: Denies: fever(s), chills or fatigue Eyes: Denies: change in vision ENMT: Denies: throat pain, ear or mastoid pain or nasal discharge Card: Denies: chest pain, palpitations, swelling of feet/ankles or lightheadedness Resp: Denies: dyspnea, productive cough or wheezing GI: Denies: abdominal pain, nausea, vomiting, diarrhea or constipation : Denies: flank pain, difficulty urinating, dysuria or urinary frequency Musc: Denies: neck pain, back pain or joint pain Skin/Breast: Denies: rash Neuro: Denies: headache(s), numbness in extremities or weakness in extremities Psych: Reports: anxiety, depression, irritability and suicidal ideation; Denies: visual hallucinations, auditory hallucinations, tactile hallucinations or homicidal ideation PFSH ED 2 PFSH: Medical History Social discord Arteriovenous graft infection Alcohol dependence Psychiatric care 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 Prediabetes Erectile dysfunction Chronic pain in left shoulder Had pain present when seen 12/2021 on his first visit and thought he might have a rotator cuff tear then Generalized anxiety disorder with panic attacks Benzodiazepine abuse Dental caries associated with enamel hypomineralization Cigarette smoker Claudication in peripheral vascular disease Since 2018 with walking 100 yards or less Chronic low back pain Torn rotator cuff Hypertension Depression Surgical History History of coronary angioplasty with insertion of stent History of skin graft Split thickness skin graft of left lower extremity?03/01/2024 Family History Other CAD (coronary artery disease) Social History Smoking and tobacco/nicotine status: current every day tobacco/nicotine user cigarettes Packs smoked per day: 2 Alcohol intake: current Alcohol intake frequency: few times a week Substance/Drug Use: never Marital status: Single Number of children: 0 Current occupational status: employed Physical Exam 2 Const: COMMON NORMALS: no acute distress and no limitations GENERAL APPEARANCE: cooperative, comfortable and well developed O RIENTATION/CONSCIOUSNESS: Yes awake HENMT: COMMON NORMALS: normocephalic, atraumatic and hearing grossly normal bilaterally HEAD & SCALP: normocephalic and atraumatic Eye: COMMON NORMALS: Equal, round and reactive pupils present, EOMs intact bilaterally and conjunctivae normal CONJUNCTIVA: Yes conjunctivae normal P UPIL: Yes Equal, round and reactive pupils present Neck/C-Spine: COMMON NORMALS: full ROM, supple and no JVD Resp: COMMON NORMALS: normal respiratory effort, No retractions, No use of accessory muscles and clear to auscultation bilaterally AUSCULTATION: clear to auscultation bilaterally Cardio: COMMON NORMALS: no JVD, regular rate, regular rhythm, No clicks present (Cardio), No murmurs present (Cardio) and No rub (Cardio) RATE: r egular rate RHYTHM: regular rhythm Extremity: COMMON NORMALS: normal to inspection, full ROM and capillary refill normal Psych: COMMON NORMALS: mental status grossly normal, Normal thought process present and speech normal APPEARANCE: Yes unkempt ACTIVITY/MOTOR BEHAVIOR: Yes appropriate eye contact SPEECH: Yes normal speech MOOD & AFFECT: Yes euthymic mood THOUGHT PROCESS: Normal thought process present THOUGHT CONTENT: Yes Suicidality present Skin: COMMON NORMALS: no rashes or lesions noted GENERAL SKIN EXAM: no rashes or lesions noted Course 2 Vital Signs: Vital signs: Vital Signs Temperature 98.1 F 09/25/24 22:36 Pulse Rate 99 09/25/24 23:18 Respiratory Rate 20 H 09/25/24 23:18 Blood Pressure 104/76 09/25/24 23:18 Pulse Oximetry 96 09/25/24 23:18 Oxygen Delivery Me thod Room Air 09/25/24 23:18 MDM - Psych Medical Decision Making Patient presented by ambulance, well-known here to the emergency department and he was stating suicidal ideations without a plan. He has been here in the neuropsychiatric unit multiple times this year, and also states that he had been to [facility]. He also has been seen here in the emergency department multiple times recently with similar complaints, of which psychiatry had been consulted at that time as well. He reportedly tonight took 7 of his 1 mg Xanax pills, but specifically reported to me that this was not in an attempt to harm himself and that he took this in an attempt to break his anxiety. He did report to me that he was newly homeless. I spoke with Dr. Wagner in regards to this patient's case, Dr. Wagner has personally seen this patient before. We reviewed the patient's history of referrals to crisis center as well as enrollment into the ERE program, however patient has never followed up on these and when I asked patient about this he states he has never had a ride. Patient then got angry because he felt that we were intentionally not admitting him to the neuropsychiatric unit, when I asked the patient why he thought he needed admitted he states that he needed 3 days to figure out where he is going to go, specifically wanting a bus ticket back to [place] where he is from. He is also now switching his story stating that he took the medication specifically to harm himself. I informed him that he is not meeting admission criteria at this time, and he needs to follow-up with outpatient psychiatry through [facility] and that the ERE program and Medicaid should allow him access to these benefits. He demands that he be given his clothes and IV be taken out and becomes very aggressive again, for which security is called. Lab Data 09/25/24 22:59 09/25/24 22:59 Laboratory Results WBC 8.39 10^3/uL (3.29-11.43) 09/25/24 22:59 RBC 4.91 10^6/uL (3.85-5.65) 09/25/24 22:59 Hgb 14.80 g/dL (11.27-16.99) 09/25/24 22:59 Hct 44.8 % (37-53) 09/25/24 22:59 MCV 91.2 fl (82-101) 09/25/24 22:59 MCH 30.1 pg (27-33) 09/25/24 22:59 MCHC 33.0 g/dL (30-55) 09/25/24 22:59 RDW 12.9 % (12.1-15.1) 09/25/24 22:59 Plt Count 279 10^3/cmm (157-399) 09/25/24 22:59 MPV 8.2 fL (7.4-10.4) 09/25/24 22:59 Neut % (Auto) 50.3 % 09/25/24 22:59 Lymph % (Auto) 38.4 % 09/25/24 22:59 [place] % (Auto) 8.1 % 09/25/24 22:59 Eos % (Auto) 2.0 % 09/25/24 22:59 Baso % (Auto) 0.7 % 09/25/24 22:59 Neut # (Auto) 4.22 10^3/uL (1.8-7.7) 09/25/24 22:59 Lymph # (Auto) 3.2 10^3/uL (0.8-4.8) 09/25/24 22:59 [place] # (Auto) 0.7 10^3/uL (0.2-0.9) 09/25/24 22:59 Eos # (Auto) 0.2 10^3/uL (0.0-0.8) 09/25/24 22:59 Baso # (Auto) 0.1 10^3/uL (0.0-0.1) 09/25/24 22:59 Nucleated RBC % (auto) 0 % 09/25/24 22:59 Nucleated RBCs # 0.0 /100WBC 09/25/24 22:59 Sodium 136 mmol/L (136-145) 09/25/24 22:59 Potassium 3.2 mmol/L (3.5-5.1) L 09/25/24 22:59 Chloride 99 mmol/L (98-107) 09/25/24 22:59 Carbon Dioxide 22 mmol/L (22-29) 09/25/24 22:59 Anion Gap 18.2 (5-19) 09/25/24 22:59 BUN 10 mg/dL (6-20) 09/25/24 22:59 Creatinine 0.8 mg/dL (0.7-1.2) 09/25/24 22:59 GFR Calculation 104.5 mL/min (90-130) 09/25/24 22:59 Glucose 165 mg/dL (65-115) H 09/25/24 22:59 Calculated Osmolality 285 mOsm/kg (285-295) 09/25/24 22:59 Calcium 9.4 mg/dL (8.5-10.5) 09/25/24 22:59 Total Bilirubin 0.2 mg/dL (0.15-1.2) 09/25/24 22:59 AST 44 U/L (0-40) H 12/30/24 22:59 ALT 55 U/L (0-41) H 09/25/24 22:59 Alkaline Phosphatase 79 U/L (40-130) 09/25/24 22:59 Total Protein 7.0 g/dL (6.6-8.7) 09/25/24 22:59 Albumin 4.0 g/dL (3.5-5.2) 09/25/24 22:59 Globulin 3.0 g/dL (1.3-4.6) 09/25/24 22:59 Salicylates < 0.3 mg/dL (3-10) L 09/25/24 22:59 Urine Opiates Screen Negative ng/mL (Negative) 09/26/24 00:00 Acetaminophen < 5.0 ug/mL (10-30) L 09/25/24 22:59 Ur Barbiturates Screen Negative ng/mL (Negative) 09/26/24 00:00 Ur Phencyclidine Scrn Negative ng/mL (Negative) 09/26/24 00:00 Ur Amphetamines Screen Negative ng/mL (Negative) 09/26/24 00:00 U Benzodiazepines Scrn Positive ng/mL (Negative) H 09/26/24 00:00 Urine Cocaine Screen Negative ng/mL (Negative) 09/26/24 00:00 U Marijuana (THC) Screen Negative ng/mL (Negative) 09/26/24 00:00 Ethyl Alcohol 26 mg/dL (0-10) H 09/25/24 22:59 No radiology studies performed this visit Discharge Plan Discharge Patient Disposition: Home Clinical Impression: Anxiety with depression Condition: Stable Prescriptions: No Action aspirin 325 mg tablet 325 mg PO DAILY Qty: 30 0RF clopidogrel [Plavix] 75 mg tablet 75 mg PO DAILY Qty: 30 2RF Nitrostat 0.4 mg tablet, sublingual 0.4 mg sublingual PRN PRN (Reason: Chest Pain) Qty: 30 1RF lisinopril-hydrochlorothiazide 20-25 mg tablet 1 tab PO DAILY Qty: 30 2RF alprazolam [Xanax] 1 mg tablet 1 mg PO QID Qty: 30 0RF gabapentin 400 mg capsule Discharge Orders: Discharge ED (Routine); Ordered 09/26/24 Ordered By: Harsha Rodas Referrals: Nilesh Hutchinson MD [Physician] - Patient Instructions: Depression (ED), Anxiety (ED) Activity Restrictions/Additional Instructions: Follow-up with [facility] and the crisis center. Continue taking your Xanax at home, please take it as prescribed. Coding Level of Care Code ED Company Truck Driver for Adam Adair
--- NOTE | 2024-09-25 23:06 | PC.NURSE ---
Poison control contacted at this time and info will be faxed to us
--- NOTE | 2024-09-25 23:06 | PC.NURSE ---
pts belongings were inventoried by this nurse and security.
[2024-09-25 23:07] LABS: Basophils # 0.1 10^3/uL (0.0-0.1); Basophils % 0.7 %; Eosinophils # 0.2 10^3/uL (0.0-0.8); Hematocrit 44.8 % (37-53); Lymphocytes # 3.2 10^3/uL (0.8-4.8); Lymphocytes % 38.4 %; Mean Corpuscular Hemoglobin 30.1 pg (27-33); Mean Corpuscular Volume 91.2 fl (82-101); Mean Platelet Volume 8.2 fL (7.4-10.4); Monocytes # 0.7 10^3/uL (0.2-0.9); Monocytes % 8.1 %; Neutrophils # 4.22 10^3/uL (1.8-7.7); Neutrophils % 50.3 %; Nucleated Red Blood Cells % 0 %; Platelet Count 279 10^3/cmm (157-399); Red Blood Count 4.91 10^6/uL (3.85-5.65); Red Cell Distribution Width 12.9 % (12.1-15.1); White Blood Count 8.39 10^3/uL (3.29-11.43)
[2024-09-25 23:18] VITALS: BP 104/76; PULSE 99; RESP 20; O2SAT 96
[2024-09-25 23:20] LABS: Alanine Aminotransferase 55 U/L (0-41); Alcohol Level 26 mg/dL (0-10); Alkaline Phosphatase 79 U/L (40-130); Anion Gap 18.2 (5-19); Aspartate Amino Transferase 44 U/L (0-40); Blood Urea Nitrogen 10 mg/dL (6-20); Calcium 9.4 mg/dL (8.5-10.5); Carbon Dioxide 22 mmol/L (22-29); Chloride 99 mmol/L (98-107); Creatinine Clr Calc Pharmacy 138.7264; Glomerular Filtration Rate 104.5 mL/min (90-130); Glucose 165 mg/dL (65-115); Osmolality Calculated 285 mOsm/kg (285-295); Potassium 3.2 mmol/L (3.5-5.1); Sodium 136 mmol/L (136-145); Total Bilirubin 0.2 mg/dL (0.15-1.2)
[2024-09-25 23:22] LABS: Acetaminophen < 5.0 ug/mL (10-30); Salicylate < 0.3 mg/dL (3-10)
--- NOTE | 2024-09-26 00:21 | PC.NURSE ---
Pt continued to stated he took Xanax to help him calm down when he realized that he would not be admitted to the stress unit he changed his statement to he did it with purpose. Pt stated he planned to be admitted so he could make arrangements to find himself a new place to live or a way back to [place]. Pt became aggressive towards ADARSH Rodas when he re-iterated that he need to do his outpatient follow ups with [facility]/Crisis center. Pt stated upon leaving the ED that I hope he gets in trouble for not admitting me when I go home and blow my brains out in reference to Dr Wagner not admitting him. Pt stated multiple times during discharge conversation with ADARSH Rodas and RN presence that he does not have a home to return to.
[2024-09-26 00:22] LABS: Amphetamines Screen Urine Negative (Negative); Barbiturates Screen Urine Negative (Negative); Benzodiazepines Screen Urine Positive (Negative); Cocaine Screen Urine Negative (Negative); Opiate Screen Urine Negative (Negative); PCP Screen Urine Negative (Negative); THC Screen Urine Negative (Negative)
== END 2024-09-26 00:11 | disposition home or self-care (01) ==
PROVIDERS: Emergency Provider Physician Assistant
DX: F41.8 Other specified anxiety disorders (principal); Z79.82 Long term (current) use of aspirin; Z79.02 Long term (current) use of antithrombotics/antiplatelets; F17.210 Nicotine dependence, cigarettes, uncomplicated; I10 Essential (primary) hypertension
CPT/HCPCS: 36415; 80053; 80306; 80307; 85025; 99283

== ENCOUNTER 2025-07-26 11:13 | Observation (INO) | payer MEDICAID, SELFPAY ==
[2025-07-26] VITALS (24 sets, daily range): BP systolic 94–131; BP diastolic 52–86; PULSE 73–101; RESP 13–25; TEMP 35.7–36.7; O2SAT 91–99; BMI 36.0; BMI 35.6
--- NOTE | 2025-07-26 11:20 | ECG_ITS ---
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 Measurements Intervals [place] Rate: 98 P: 7 ME: 149 QRS: 68 QRSD: 128 T: 48 QT: 373 QTc: 477 Interpretive Statements SINUS RHYTHM POSSIBLE RIGHT VENTRICULAR CONDUCTION DELAY [RSR (QR) IN V1/V2] Compared to ECG 08/07/2024 15:17:41 NO SIGNIFICANT CHANGE Electronically Signed On 07-28-2025 20:43:52 CDT by Santy Cristina M.D. [id number] [id number]
--- NOTE | 2025-07-26 11:26 | XR_ITS ---
WS: [id number] Exam: XR chest 1V portable [id number] Date/Time of Exam: 07/26/2025 11:26 AM Reason For Exam: chest pain Comparison 08/07/2024. Lungs are clear and fully inflated. Normal cardiomediastinal silhouette and regional bony elements. XR/XR chest 1V portable [id number] IMPRESSION: 1. Negative chest.
--- NOTE | 2025-07-26 11:31 | W.ED.CHESTPA ---
HPI - Chest Pain General: Chief Complaint: Chest Pain Stated Complaint: CP sweating numbness Time Seen by Provider: 07/26/25 11:29 History of Present Illness: 45-year-old man with a history of anxiety, depression, coronary artery disease status post stents and hypertension who presents to the emergency room with chest pain and anxiety. Substernal left chest rating down his left arm and neck. He reports cardiac history. No fevers. He reports severe anxiety today. But says usually his anxiety medications fix this so he thinks it is his heart. Related Data Home Medications ?Medication ?Instructions ?Recorded ?Confirmed gabapentin 400 mg capsule mg 09/25/24 09/25/24 Previous Rx's ?Medication ?Instructions ?Recorded aspirin 325 mg tablet 325 mg PO DAILY #30 tabs 06/09/24 alprazolam 1 mg tablet (Xanax) 1 mg PO QID #30 tabs 07/09/24 clopidogrel 75 mg tablet (Plavix) 75 mg PO DAILY #30 tabs 07/27/24 nitroglycerin 0.4 mg sublingual 0.4 mg sublingual PRN PRN Chest 08/29/24 tablet (Nitrostat) Pain #30 tabs lisinopril 20 1 tab PO DAILY #30 tabs 08/30/24 mg-hydrochlorothiazide 25 mg tablet Allergies Allergy/AdvReac Type Severity Reaction Status Date / Time codeine Allergy ALGY-Hives Verified 07/26/25 11:25 ketorolac (From Toradol) Allergy ALGY-Hives Verified 07/26/25 11:25 trazodone Allergy ALGY-Difficulty Verified 07/26/25 11:25 Swallowing Review of Systems Narrative: Constitutional symptoms: Negative except as documented in HPI. Skin symptoms: Negative except as documented in HPI. Eye symptoms: Negative except as documented in HPI. ENMT symptoms: Negative except as documented in HPI. Respiratory symptoms: Negative except as documented in HPI. Cardiovascular symptoms: Negative except as documented in HPI. Gastrointestinal symptoms: Negative except as documented in HPI. Genitourinary symptoms: Negative except as documented in HPI. Musculoskeletal symptoms: Negative except as documented in HPI. Neurologic symptoms: Negative except as documented in HPI. Psychiatric symptoms: Negative except as documented in HPI. Endocrine symptoms: Negative except as documented in HPI. PFS ED PFSH: Medical History (Updated 07/26/25 @ 13:04 by Cindy Tompkins MD) Diabetes mellitus Social discord Arteriovenous graft infection Alcohol dependence 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 Prediabetes Erectile dysfunction Chronic pain in left shoulder Had pain present when seen 12/2021 on his first visit and thought he might have a rotator cuff tear then Generalized anxiety disorder with panic attacks Benzodiazepine abuse Dental caries associated with enamel hypomineralization Cigarette smoker Claudication in peripheral vascular disease Since 2018 with walking 100 yards or less Chronic low back pain Torn rotator cuff Hypertension Depression Surgical History History of coronary angioplasty with insertion of stent History of skin graft Split thickness skin graft of left lower extremity?03/01/2024 Family History Other CAD (coronary artery disease) Social History Smoking and tobacco/nicotine status: current every day tobacco/nicotine user cigarettes Packs smoked per day: 2 Alcohol intake: current Alcohol intake frequency: few times a week Substance/Drug Use: never Marital status: Single Number of children: 0 Current occupational status: employed Physical Exam Narrative: EXAM NARRATIVE: General: Alert, no acute distress. Skin: Warm, dry. Head: Normocephalic, atraumatic. Neck: Supple, trachea midline. Eye: Extraocular movements are intact. Ears, nose, mouth and throat: mucosa moist. Cardiovascular: Regular, Normal peripheral perfusion. Respiratory: Lungs are clear to auscultation, respirations are non-labored, breath sounds are equal, Symmetrical chest wall expansion. Gastrointestinal: Soft, Nontender, Non distended Musculoskeletal: Normal ROM, no deformity. Neurological: Alert and oriented, No focal neurological deficit observed. Psychiatric: Cooperative, patient appears quite anxious Course Vital Signs: Vital signs: Vital Signs Temperature 97.9 F 07/26/25 11:18 Pulse Rate 85 07/26/25 12:30 Respiratory Rate 20 H 07/26/25 12:30 Blood Pressure 105/57 07/26/25 12:30 Pulse Oximetry 91 07/26/25 12:30 Oxygen Delivery Me thod Room Air 07/26/25 12:30 MDM - Chest Pain Medical Decision Making Medical decision making: Patient's reason for coming to the emergency room: Chest pain Social determinants: Patient is unemployed. Unmarried. Lives in [place]. I reviewed the patient's medical record. I have added diabetes to his medical history. This was not in the records. Last visit here was around a year ago. He says he had moved to [place] for a while. But now he is moving back I reviewed the patient's current home meds: Patient takes Xanax 3 times daily he is still on Plavix. And lisinopril. Reviewed prescription monitoring: Patient was just started on 3 times daily Xanax this month. Alternate historians: None Differential diagnosis for patient with chest pain includes but is not limited to and based on the above HPI, review of systems and physical exam: Pneumonia. unstable angina. angina. Acute coronary syndrome / [place]. Pulmonary embolism. Costochondritis / musculoskeletal. Pleurisy. Pericarditis. Esophageal spasm. Pancreatis. Cholecystitis. Orders placed to evaluate differential diagnosis based on the above differential, HPI and physical exam EKG: Time 1120. Rate 98. Normal sinus rhythm, No ST-T changes, no ectopy, normal OK & QRS intervals, This was reviewed and interpreted by myself the ER physician at 11:25 AM Chest x-ray: No acute process. No infiltrate. No pneumothorax. This was reviewed and interpreted by myself the emergency room physician. I also reviewed the radiology report. Lab Review: Laboratory results were reviewed and interpreted by myself the emergency room physician. No leukocytosis. No anemia. No renal failure. Glucose is elevated at 519. Mild anion gap. Initial troponin is negative. Assessment of risk: Level of risk: Moderate. Coronary artery disease with multiple risk factors of medical noncompliance. Hospitalization considerations: Clinical decision support: Heart score is 5. Recommends observation. Also hyperglycemia needs further treatment Reexamination: Patient remained stable. No increased work of breathing. No altered mental status. No focal motor deficits. Patient tells me he has been out of his diabetic medications. Consultation: I spoke with Dr. Reece who is on-call for the hospitalist service who agrees to admission. AB.4 with an O2 sat of 93% on room air Assessment and plan: Chest pain Coronary artery disease Hyperglycemia Medical noncompliance ?Nitro, 2 L normal saline bolus, IV insulin. Aspirin. ?IV morphine ? IV Ativan for anxiety -I discussed the patient with the hospitalist on-call who is admitting the patient. - Discussed findings and plan with patient. Answered any questions. - All laboratory values were reviewed and interpreted personally by myself, the ER physician - All imaging was reviewed and interpreted personally by myself, the ER physician. - Evaluation and treatment of this problem were appropriate in the emergency setting Lab Data 07/26/25 11:35 07/26/25 11:35 Radiology Impressions Chest X-Ray 07/26/25 11:26 IMPRESSION: 1. Negative chest. Laboratory Results WBC 9.74 10^3/uL (3.29-11.43) 07/26/25 11:35 RBC 5.36 10^6/uL (3.85-5.65) 07/26/25 11:35 Hgb 15.60 g/dL (11.27-16.99) 07/26/25 11:35 Hct 45.1 % (37-53) 07/26/25 11:35 MCV 84.1 fl (82-101) 07/26/25 11:35 MCH 29.1 pg (27-33) 07/26/25 11:35 MCHC 34.6 g/dL (30-55) 07/26/25 11:35 RDW 12.4 % (12.1-15.1) 07/26/25 11:35 Plt Count 310 10^3/cmm (157-399) 07/26/25 11:35 MPV 8.5 fL (7.4-10.4) 07/26/25 11:35 Neut % (Auto) 56.9 % 07/26/25 11:35 Lymph % (Auto) 35.0 % 07/26/25 11:35 [place] % (Auto) 6.3 % 07/26/25 11:35 Eos % (Auto) 0.8 % 07/26/25 11:35 Baso % (Auto) 0.7 % 07/26/25 11:35 Neut # (Auto) 5.54 10^3/uL (1.8-7.7) 07/26/25 11:35 Lymph # (Auto) 3.4 10^3/uL (0.8-4.8) 07/26/25 11:35 [place] # (Auto) 0.6 10^3/uL (0.2-0.9) 07/26/25 11:35 Eos # (Auto) 0.1 10^3/uL (0.0-0.8) 07/26/25 11:35 Baso # (Auto) 0.1 10^3/uL (0.0-0.1) 07/26/25 11:35 Nucleated RBC % (auto) 0 % 07/26/25 11:35 Nucleated RBCs # 0.0 /100WBC 07/26/25 11:35 Specimen Type Arterial 07/26/25 13:00 Sample Site Radial, right 07/26/25 13:00 ABG pH 7.41 (7.35-7.45) 07/26/25 13:00 ABG pCO2 37.3 mmHg (35-45) 07/26/25 13:00 ABG pO2 84.3 mmHg (80.0-100.0) 07/26/25 13:00 ABG PO2/FiO2 Ratio 401 07/26/25 13:00 ABG HCO3 23.8 mmol/L (22-26) 07/26/25 13:00 ABG O2 Saturation 98.0 07/26/25 13:00 ABG Base Excess -0.5 mmol/L (-2.0-2.0) 07/26/25 13:00 Momo Test Pos 07/26/25 13:00 A-a O2 Gradient 2.4 mmHg (5-10) L 07/26/25 13:00 Hematocrit 41.9 % (42-52) L 07/26/25 13:00 Hgb O2 Saturation 92.1 % (95-100) L 07/26/25 13:00 Carboxyhemoglobin 5.8 %THgb (0.4-20.1) 07/26/25 13:00 Methemoglobin 0.3 % (0.4-1.5) L 07/26/25 13:00 Total Hemoglobin 13.7 g/dL (14-18) L 07/26/25 13:00 Sodium 133.0 mmol/L (131-143) 07/26/25 13:00 Potassium 3.6 mmol/L (3.5-5.0) 07/26/25 13:00 Glucose 449.0 mg/dL (70-115) H 07/26/25 13:00 Ionized Calcium 1.2 mmol/L (1.1-1.4) 07/26/25 13:00 O2 Delivery Device Room air 07/26/25 13:00 FiO2 21.0 % 07/26/25 13:00 Publication Director ID Evgeny 07/26/25 13:00 Sodium 127 mmol/L (136-145) L 07/26/25 11:35 Potassium 4.1 mmol/L (3.5-5.1) 07/26/25 11:35 Chloride 88 mmol/L (98-107) L 07/26/25 11:35 Carbon Dioxide 22 mmol/L (22-29) 07/26/25 11:35 Anion Gap 21.1 (5-19) H 07/26/25 11:35 BUN 10 mg/dL (6-20) 07/26/25 11:35 Creatinine 0.7 mg/dL (0.7-1.2) 07/26/25 11:35 GFR Calculation 121.4 mL/min (90-130) 07/26/25 11:35 Glucose 519 mg/dL (65-115) H* 07/26/25 11:35 Calculated Osmolality 286 mOsm/kg (285-295) 07/26/25 11:35 Calcium 10.2 mg/dL (8.5-10.5) 07/26/25 11:35 Total Bilirubin 0.4 mg/dL (0.15-1.2) 07/26/25 11:35 AST 46 U/L (0-40) H 07/26/25 11:35 ALT 71 U/L (0-41) H 07/26/25 11:35 Alkaline Phosphatase 120 U/L (40-130) 07/26/25 11:35 Troponin T Baseline 7 ng/L (0-15) 07/26/25 11:35 Troponin T 120 Minute 7.70 ng/L (0-15) 07/26/25 12:26 Delta Troponin T 0.70 ABS# (0-10) 07/26/25 12:26 NT-Pro-B Natriuret Pep < 36 pg/mL (0-125) 07/26/25 11:35 Total Protein 7.8 g/dL (6.6-8.7) 07/26/25 11:35 Albumin 4.7 g/dL (3.5-5.2) 07/26/25 11:35 Globulin 3.1 g/dL (1.3-4.6) 07/26/25 11:35 All radiology interpretation(s) finalized by discharge Clincial Decision Support The following clinical decision support tools were used to aid in care of the patient HEART Score -> History: Moderately Suspicious, EKG: Non-specific Changes, Age: 45-64 yrs, Risk Factors: >/=3 Risk Factors, Troponin: Baseline Trop <16 ng/L. Resulting HEART Score: 5. Discharge Plan Discharge Patient Disposition: Placed in Observation Clinical Impression: Chest pain, Hyperglycemia, Diabetes mellitus CAD (coronary artery disease) Qualifiers: Coronary Disease-Associated Artery/Lesion type: [place] artery [place] vs. transplanted heart: [place] heart Associated angina: with unstable angina Qualified Code(s): I25.110 - Atherosclerotic heart disease of [place] coronary artery with unstable angina pectoris Coding Level of Care Code ED Manager Media Relations for g Fwd Heart Score HEART Score Components History: Moderately Suspicious EKG: Non-specific Changes Age: 45-64 yrs Risk Factors: >/=3 Risk Factors Troponin: Baseline Trop <16 ng/L HEART Score RESULT HEART Score: 5
[2025-07-26 11:44] LABS: Hematocrit 45.1 % (37-53); Hemoglobin 15.60 g/dL (11.27-16.99); Mean Corpuscular HGB Conc 34.6 g/dL (30-55); Mean Corpuscular Hemoglobin 29.1 pg (27-33); Mean Corpuscular Volume 84.1 fl (82-101); Nucleated Red Blood Cells % 0 %; Platelet Count 310 10^3/cmm (157-399); Red Blood Count 5.36 10^6/uL (3.85-5.65); White Blood Count 9.74 10^3/uL (3.29-11.43)
[2025-07-26 12:00] LABS: Troponin(5th) Baseline 7 ng/L (0-15)
[2025-07-26 12:22] LABS: Alanine Aminotransferase 71 U/L (0-41); Albumin Level 4.7 g/dL (3.5-5.2); Alkaline Phosphatase 120 U/L (40-130); Aspartate Amino Transferase 46 U/L (0-40); Blood Urea Nitrogen 10 mg/dL (6-20); Calcium 10.2 mg/dL (8.5-10.5); Carbon Dioxide 22 mmol/L (22-29); Chloride 88 mmol/L (98-107); Creatinine Clr Calc Pharmacy 151.7996; Globulin 3.1 g/dL (1.3-4.6); NT Pro B Type Natriuretic Pept < 36 pg/mL (0-125); Osmolality Calculated 286 mOsm/kg (285-295); Sodium 127 mmol/L (136-145); Total Protein 7.8 g/dL (6.6-8.7)
[2025-07-26 12:27] LABS: Anion Gap 21.1 (5-19); Glucose 519 mg/dL (65-115); Potassium 4.1 mmol/L (3.5-5.1)
[2025-07-26] MEDS: morphine 4 mg/mL SDV 1 mL 2 MG IVP ×3 (12:30→20:35)
[2025-07-26 12:48] LABS: Troponin 5 2HR 7.70 ng/L (0-15); Troponin 5 2HR Delta 0.70 ABS# (0-10)
[2025-07-26 13:12] LABS: ABG PCO2 37.3 mmHg (35-45); ABG PH Result 7.41 (7.35-7.45); Alveolar-Arterial Oxygen Gradi 2.4 mmHg (5-10); Arterial Blood Gas Hematocrit 41.9 % (42-52); Blood Gas Allen Test Pos; Blood Gas Operator Identificat MONRO; Blood Gas Sample Site Radial, right; Blood Gas Sample Type Arterial; Carboxyhemoglobin 5.8 %THgb (0.4-20.1); Glucose Level-ABG 449.0 mg/dL (70-115); HCO3 ABG 23.8 mmol/L (22-26); Ionized Calcium Level - ABG 1.2 mmol/L (1.1-1.4); Methemoglobin 0.3 % (0.4-1.5); Oxygen Saturation ABG 98.0; PO2 ABG 84.3 mmHg (80.0-100.0); PO2 FiO2 Ratio Arterial Blood 401; Potassium Level - ABG 3.6 mmol/L (3.5-5.0); Sodium Level - ABG 133.0 mmol/L (131-143)
[2025-07-26 13:15] LABS: Ketone (Acetest) Serum Negative (Negative)
[2025-07-26] MEDS: insulin regular-human 100 units/1 mL 10 UNIT IVP (13:15)
--- NOTE | 2025-07-26 13:26 | ECG_ITS ---
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
--- NOTE | 2025-07-26 14:35 | PC.NURSE ---
Pt states nothing we have given him is helping his chest pain. This nurse has rounded on pt multiple times and every time when going into pt's room, pt is resting with eyes closed and appears to be in no distress.
--- NOTE | 2025-07-26 16:01 | PM.HP ---
Providers/Chief Complaint Admitting Physician: Oscar Reece MD Chief Complaint: CP sweating numbness History of Present Illness As per the previous note and the patient: Rudy Crawford is a 45 year old male of hypertension, coronary artery disease status post stenting 2 months ago, diabetes, nicotine dependence/cigarette smoking, past history of alcohol use disorder and currently sober since 7 months came with chest pain that started around 10 AM associated with numbness of his lips and hands with diaphoresis and shortness of breath. The patient also felt dizzy and presyncope. There was no history of any recent leg swellings, orthopnea or PND. No history of fever or chills. The patient reported compliance to his medications Rest of review of system unremarkable Review of Systems General: Reports: 10 or more systems reviewed and unremarkable except in HPI and below Medications/Allergies Home Medications ?Medication ?Instructions ?Recorded ?Confirmed ?Last Taken ?Type aspirin 325 mg tablet 325 mg PO DAILY #30 tabs 06/09/24 07/26/25 07/26/25 Rx nitroglycerin 0.4 mg sublingual 0.4 mg sublingual PRN PRN Chest 08/29/24 07/26/25 Unknown Rx tablet (Nitrostat) Pain #30 tabs alprazolam 1 mg tablet (Xanax) 1 mg PO TID 07/26/25 07/26/25 07/26/25 08:00 History desvenlafaxine succinate 100 mg 100 mg PO DAILY 07/26/25 07/26/25 07/26/25 09:00 History tablet,extended release 24 hr (Pristiq) oxycodone 5 mg tablet 5 mg PO Q6H PRN Pain 07/26/25 07/26/25 07/26/25 09:00 History prasugrel HCl 10 mg tablet 10 mg PO DAILY 07/26/25 07/26/25 07/26/25 09:00 History Allergies Allergy/AdvReac Type Severity Reaction Status Date / Time codeine Allergy ALGY-Hives Verified 07/26/25 11:25 ketorolac (From Toradol) Allergy ALGY-Hives Verified 07/26/25 11:25 trazodone Allergy ALGY-Difficulty Verified 07/26/25 11:25 Swallowing PFSH Acute PFSH: Medical History (Updated 07/26/25 @ 16:02 by Oscar Reece MD) Hypertension Diabetes mellitus Social discord Arteriovenous graft infection Alcohol dependence 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 Prediabetes Erectile dysfunction Chronic pain in left shoulder Had pain present when seen 12/2021 on his first visit and thought he might have a rotator cuff tear then Generalized anxiety disorder with panic attacks Benzodiazepine abuse Dental caries associated with enamel hypomineralization Cigarette smoker Claudication in peripheral vascular disease Since 2018 with walking 100 yards or less Chronic low back pain Torn rotator cuff Depression Surgical History History of coronary angioplasty with insertion of stent History of skin graft Split thickness skin graft of left lower extremity?03/01/2024 Family History Other CAD (coronary artery disease) Social History Smoking and tobacco/nicotine status: current every day tobacco/nicotine user cigarettes Packs smoked per day: 2 Alcohol intake: current Alcohol intake frequency: few times a week Substance/Drug Use: never Marital status: Single Number of children: 0 Current occupational status: employed Vitals/I&O/Wt Last Vital Signs Temp 97.9 F 07/26/25 11:18 Pulse 74 07/26/25 15:52 Resp 16 07/26/25 15:52 BP 114/76 07/26/25 15:52 Pulse Ox 95 07/26/25 15:52 O2 Del Method Room Air 07/26/25 15:52 07/26/25 07/26/25 07/26/25 06:59 14:59 22:59 Intake Total 1999 Balance 1999 Weight last 48 hrs Weight 104.326 kg Physical Exam Narrative: General: Morbidly obese patient, alert and oriented, lying comfortably without any distress HEENT: Normocephalic, atraumatic, grossly unremarkable exam Cardio: normal rate rhythm, normal S1-S2 without any murmurs, rubs, or gallops and JVD normal Respiratory: normal vascular breathing on auscultation without any wheezes, stridor, rhonchi GI: Abdomen soft, nontender, nondistended, normoactive bowel sounds present all 4 quadrants, Neuro: intact cranial nerves motor and sensory and cerebellar/coordination function without any focal neurological deficit Behavior: Appropriate and cooperative Extremities: Adequate palpable pulses, mild trace edema Data 07/26/25 11:35 07/26/25 11:35 A&P Assessment and plan 1. Chest pain: Patient has history of chronic artery disease status post stenting and currently on aspirin and prasugrel Troponins negative Echo and nuclear stress test Avoid caffeinated products in the morning Telemetry monitoring TSH normal Monitor vitals and maintain blood pressure Nitro as needed for chest pain 2. Hyperlipemia: Continue high-dose statins 3. Cigarette smoker: Emphasis on smoking cessation and abstinence has been provided Nicotine patch 21 mg 4. Claudication in peripheral vascular disease: Continue aspirin and statins 5. Hyperglycemia: HbA1c last year was 7.7% To repeat HbA1c Insulin sliding scale high-dose 6. Primary hypertension: Patient blood pressure on the normal side therefore continue to monitor at the moment PDMP PDMP Reviewed: Not Reviewed Attestations Medical Necessity Statement*: Patient will stay overnight for the management of chest pain further workup and observation Time Spent in Patient Care: 16 - 35 minutes (>than 50% of time spent in counselling and/or direct pt care on unit). Other Attestations: Patient condition has been discussed at length with the patient/family, I have independently reviewed the chart labs imaging/diagnostics/EKG. the goals of care and code status with the patient/family/NOK/legal benefits representative, and documented accordingly. The management has been done according to the current clinical condition with respect to patient goals of care and based on recommendations/guidelines. The patient/family has been informed about the current condition and further plan of care. Agreed with the plan of care and understood without any language barrier. Every effort was made to ensure accuracy of crozer. Any obvious errors or omissions should be clarified with the author of the document. Coding Level of Care Code Acute Code for Chg Fwd Diagnoses Chest pain R07.9 Hyperlipemia E78.5 Cigarette smoker F17.210 Claudication in peripheral vascular disease I73.9 Hyperglycemia R73.9 Primary hypertension I10
[2025-07-26] MEDS: heparin 5,000 unit/mL INJ 1 mL 5000 UNIT SUBCUT (16:37)
[2025-07-26] MEDS: pantoprazole 40 mg SDV IVP (16:37)
[2025-07-26 16:38] LABS: Cholesterol 190 mg/dL (0-200); HDL Cholesterol 20 mg/dL (60-100); Magnesium 2.1 mg/dL (1.7-2.3); Thyroid Stimulating Hormone 1.69 uIU/mL (0.27-4.20)
[2025-07-26 16:55] LABS: Triglycerides 1338 mg/dL (0-150)
--- NOTE | 2025-07-26 17:45 | PC.NURSE ---
Patient's blood sugar was 435. Dr. Reece was notified.
--- NOTE | 2025-07-26 18:00 | ECG_ITS ---
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 Measurements Intervals [place] Rate: 72 P: 32 AL: 193 QRS: 31 QRSD: 130 T: 26 QT: 415 QTc: 457 Interpretive Statements SINUS RHYTHM POSSIBLE RIGHT VENTRICULAR CONDUCTION DELAY [RSR (QR) IN V1/V2] INFERIOR MYOCARDIAL INFARCTION , PROBABLY OLD [40+ ms Q WAVE AND/OR ST/T ABNORMALITY IN II/aVF] Compared to ECG 07/26/2025 14:48:35 Myocardial infarct finding now present Electronically Signed On 07-28-2025 20:48:20 CDT by Santy Cristina M.D. [id number]
[2025-07-26 18:38] LABS: Troponin 5 6HR 7.24 ng/L (0-15); Troponin 5 6HR Delta 0.24 ng/L (0-12)
[2025-07-26] MEDS: oxyCODONE-APAP 5-325 mg Tablet 1 TAB PO ×2 (19:39→23:43)
--- NOTE | 2025-07-26 21:45 | ECG_ITS ---
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
[2025-07-26] MEDS: morphine 4 mg/mL SDV 1 mL IVP (22:17)
[2025-07-27] VITALS (7 sets, daily range): BP systolic 104–137; BP diastolic 60–94; PULSE 72–82; RESP 14–22; TEMP 36.2–36.8; O2SAT 97–100
--- NOTE | 2025-07-27 | ECG_ITS ---
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 Interpretive Statements Procedure: A total of 0.4 mg of Lexiscan was infused over 20 seconds. The stress phase was continued for a total of 5 minutes. Sestamibi was injected 20 seconds after the Lexiscan infusion. Findings:The patient's baseline blood pressure was 100/72 mmHg with a heart rate of 66 bpm. The resting EKG showed normal sinus rhythm with no ST-T wave abnormalities. The patient's blood pressure was stable during the stress test. The patient's heart rate gradually increased to a maximum of 85 bpm. There are no ST-T wave changes throughout the stress test. No arrhythmias occurred. Conclusion: 1. Normal EKG response to Lexiscan infusion 2. No Lexiscan induced chest pain or cardiac arrhythmia. 3. Normal blood pressure and heart rate response. 4. Nuclear myocardial perfusion scan pending; see separate report. Electronically Signed On 07-27-2025 14:55:28 CDT by Santy Cristina M.D. [id number] [id number]
--- NOTE | 2025-07-27 00:45 | ECG_ITS ---
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
[2025-07-27 01:16] LABS: Troponin 5 2HR 7.31 ng/L (0-15)
[2025-07-27 01:37] LABS: Troponin 5 2HR Delta 0.07 ABS# (0-10)
[2025-07-27] MEDS: morphine 4 mg/mL SDV 1 mL 2 MG IVP ×3 (02:59→12:50)
[2025-07-27] MEDS: heparin 5,000 unit/mL INJ 1 mL 5000 UNIT SUBCUT (02:59)
--- NOTE | 2025-07-27 03:59 | ECG_ITS ---
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
[2025-07-27] MEDS: oxyCODONE-APAP 5-325 mg Tablet 1 TAB PO (05:26)
--- NOTE | 2025-07-27 06:00 | ECG_ITS ---
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
[2025-07-27 06:30] LABS: Troponin 5 6HR < 6.0 ng/L (0-15)
--- NOTE | 2025-07-27 06:40 | NMCV_ITS ---
NM [place] perf SPECT r/s* [id number] Rudy Crawford Age: 45 Gender: M : 1980 Exam Date: 07/27/2025 06:51 Ordering Phys: Oscar Reece MD Technologist: ANEL Ryan Exam Location: [facility] Indications: CP STRESS TEST [facility] IMAGE PROTOCOL Rest/Stress 1 Radiopharmaceutical Dose (mCi) Administration Site Administered by Rest: Tc-99m 10.5 IV ANEL Ryan Stress:Tc-99m 32.9 IV ANEL Abrahma Rest: 27-Jul-2025 60 Discovery 630 Stress: 27-Jul-2025 30 Discovery 630 Images obtained in supine and prone position. Images obtained in supine and prone position. SPECT RESULTS Technical Quality: Good Raw Data Analysis: Normal Image Corrections: No attenuation or motion correction applied Summed Stress Score: 2 Summed Rest Score: 9 Summed Difference Score: 0 PERFUSION FINDINGS There is a small fixed perfusion defect in the inferior wall consistent with infarction with no significant vianca-infarct ischemia. FUNCTIONAL RESULTS (calculated via Gated SPECT) Stress Image LV EF (%): 55 Stress EDV (mL):109 TID: 0.98 Stress ESV (mL):49 FUNCTIONAL FINDINGS: Small area of hypokinesis of the inferior wall with normal ejectin fraction of 55%. IMPRESSIONS There is a small fixed perfusion defect in the inferior wall consistent with infarction with no significant vianca-infarct ischemia. Small area of hypokinesis of the inferior wall with normal ejectin fraction of 55%. Santy Cristina MD, FACC (Electronically Signed) Final Date: 27 July 2025 13:58 S
[2025-07-27 09:28] LABS: Albumin Level 3.8 g/dL (3.5-5.2); Alkaline Phosphatase 79 U/L (40-130); Blood Urea Nitrogen 9 mg/dL (6-20); Calcium 9.0 mg/dL (8.5-10.5); Carbon Dioxide 20 mmol/L (22-29); Chloride 95 mmol/L (98-107); Creatinine Clr Calc Pharmacy 178.3824; Globulin 2.6 g/dL (1.3-4.6); Glucose 389 mg/dL (65-115); Osmolality Calculated 285 mOsm/kg (285-295); Sodium 130 mmol/L (136-145); Total Protein 6.4 g/dL (6.6-8.7)
[2025-07-27 09:29] LABS: Alanine Aminotransferase 68 U/L (0-41); Anion Gap 19.4 (5-19); Aspartate Amino Transferase 58 U/L (0-40); Potassium 4.4 mmol/L (3.5-5.1)
[2025-07-27 11:18] LABS: Lipase 35 U/L (13-60)
--- NOTE | 2025-07-27 12:10 | P.CONIM_ITS ---
<Statement entered by Santy Cristina MD - 07/27/25 17:19> Patient was evaluated and cared for in conjunction with an advanced practice practitioner. I personally examined the patient and reviewed the chart and all pertinent data including imaging, telemetry, and laboratory results. I discussed the patient in detail with the advanced practice practitioner. Please see their note for complete consult note, testing results and agreed upon plan of care for the patient. Providers/Reason For Consult 2 Consulting Physician/Specialty*: Dr Cristina, cardiology Reason for Consult*: chest pain Attending Physician: Oscar Reece MD History of Present Illness History of Present Illness Rudy Crawford is a 45 year old male with past medical history of hypertension, CAD with recent stenting 2 months ago in [facility], diabetes, history of smoking, alcohol abuse now abstinent, hyperlipidemia, history of systolic CHF (LVEF 45 to 50% 2023). He presented to the emergency room yesterday with chest pain substernal radiating to the left arm and left neck. Troponin series: 7?>7?><6. Glucose was initially very high 519, improved with insulin. Triglycerides 1338, AST 58, ALT 68, lipase 38. He was evaluated with stress test today which was negative for ischemia. No recurrence of chest pain. Medications/Allergies Home Medications ?Medication ?Instructions ?Recorded ?Confirmed ?Last Taken ?Type nitroglycerin 0.4 mg sublingual 0.4 mg sublingual PRN PRN Chest 08/29/24 07/26/25 Unknown Rx tablet (Nitrostat) Pain #30 tabs alprazolam 1 mg tablet (Xanax) 1 mg PO TID 07/26/2507/26/25 08:00 History prasugrel HCl 10 mg tablet 10 mg PO DAILY 07/26/2507/26/25 09:00 History aspirin 325 mg tablet 81 mg (0.2492 x 325 mg) PO D AILY 07/27/25 07/26/25 07/26/25 Rx 60 days #30 tabs atorvastatin 80 mg tablet (Lipitor) 80 mg PO DAILY 60 days #60 tabs 07/27/25 Unknown Rx ezetimibe 10 mg tablet 10 mg PO DAILY #60 tabs 06/29 10/21 Unknown Rx fenofibrate nanocrystallized 145 145 mg PO DAILY #60 t abs 07/27/25 Unknown Rx mg tablet gabapentin 400 mg capsule 400 mg PO TID 60 days #180 c aps 07/27/25 Unknown Rx icosapent ethyl 1 gram capsule 2 g (2 x 1 gram) PO BID #60 caps 07/27/25 Unknown Rx (Vascepa) metformin 850 mg tablet 850 mg PO BID #60 tabs 07/27 Unknown Rx oxycodone 5 mg tablet 5 mg PO Q6H PRN Pain 3 days #9 tabs 07/27/25 07/26/25 07/26/25 09:00 Rx pantoprazole 40 mg tablet,delayed 40 mg PO DAILY #60 t abs 07/27/25 Unknown Rx release propranolol 60 mg capsule,24 60 mg PO DAILY #30 caps 1 Unknown Rx hr,extended release Allergies Allergy/AdvReac Type Severity Reaction Status Date / Time codeine Allergy ALGY-Hives Verified 07/26/25 11:25 ketorolac (From Toradol) Allergy ALGY-Hives Verified 07/26/25 11:25 trazodone Allergy ALGY-Difficulty Verified 07/26/25 11:25 Swallowing Current Medications Generic Name Dose Route Start Last Admin Trade Name Freq PRN Reason Stop Dose Admin Alprazolam 1 mg 07/26/25 21:00 07/27/25 05:27 Alprazolam 0.5 Mg Tablet PO 1 mg TID BATOOL Administration Aspirin 325 mg 07/27/25 05:00 07/27/25 05:27 Aspirin 325 Mg Tablet PO 325 mg DAILY BATOOL Administration Desvenlafaxine 100 mg 07/27/25 05:00 07/27/25 05:27 Desvenlafaxine 50 Mg Tablet PO 100 mg DAILY BATOOL Administration Heparin Sodium (Porcine) 5,000 unit 07/26/25 15:45 07/27/25 02:59 Heparin 5,000 Unit/Ml Inj 1 Ml SUBCUT 5,000 unit Q12H BATOOL Administration Sodium Chloride 1,000 mls @ 75 mls/hr 07/26/25 15:45 07/27/25 11:01 Sodium Chloride 0.9% IV Not Given .[id number] [facility] Insulin Human Lispro 0 unit 07/26/25 18:00 07/27/25 08:47 Insulin Lispro 100 Unit/1 Ml SUBCUT 14 unit WM&BEDTIME BATOOL Administration Protocol Morphine Sulfate 2 mg 07/26/25 15:38 07/27/25 08:32 Morphine 4 Mg/Ml Sdv 1 Ml IVP 2 mg Q4H PRN Administration SEVERE PAIN Nicotine 1 patch 07/26/25 17:56 07/27/25 05:27 Nicotine 21 Mg Patch TRANSDERMA 1 patch DAILY BATOOL Administration Oxycodone/Acetaminophen 1 tab 07/26/25 15:38 07/27/25 05:26 Oxycodone-Apap 5-325 Mg Tablet PO 1 tab Q4H PRN Administration SEVERE PAIN Pantoprazole Sodium 40 mg 07/26/25 15:45 07/26/25 16:37 Pantoprazole 40 Mg Sdv IVP 40 mg Q24H BATOOL Administration Prasugrel 10 mg 07/27/25 05:00 07/27/25 05:27 Prasugrel 10 Mg Tablet PO 10 mg DAILY BATOOL Administration Senna 17.2 mg 07/26/25 21:00 07/26/25 20:47 Sennosides 8.6 Mg Tablet PO Not Given BEDTIME BATOOL PFSH Acute 2 PFSH: Medical History Hypertension Diabetes mellitus Social discord Arteriovenous graft infection Alcohol dependence 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 Prediabetes Erectile dysfunction Chronic pain in left shoulder Had pain present when seen 12/2021 on his first visit and thought he might have a rotator cuff tear then Generalized anxiety disorder with panic attacks Benzodiazepine abuse Dental caries associated with enamel hypomineralization Cigarette smoker Claudication in peripheral vascular disease Since 2017 with walking 100 yards or less Chronic low back pain Torn rotator cuff Depression Surgical History History of coronary angioplasty with insertion of stent History of skin graft Split thickness skin graft of left lower extremity?03/01/2024 Family History Other CAD (coronary artery disease) Social History Smoking and tobacco/nicotine status: current every day tobacco/nicotine user cigarettes Packs smoked per day: 2 Alcohol intake: current Alcohol intake frequency: few times a week Substance/Drug Use: never Marital status: Single Number of children: 0 Current occupational status: employed Vitals/I&O/Wt Last Vital Signs Temp 97.6 F 07/27/25 12:00 Pulse 82 07/27/25 12:00 Resp 17 07/27/25 12:00 BP 137/89 07/27/25 12:00 Pulse Ox 99 07/27/25 12:00 O2 Del Method Room Air 07/27/25 12:00 07/26/25 07/27/25 07/27/25 22:59 06:59 14:59 Intake Total 2290 / 5000 710 / 5000 1000 / 1000 Balance 2290 / 5000 710 / 5000 1000 / 1000 Weight last 48 hrs Weight 233 lb 3.985 oz Weight 227 lb 8.273 oz Weight 230 lb Physical Exam 2 Const: COMMON NORMALS: no acute distress and patient oriented x3 GENERAL APPEARANCE: cooperative and comfortable ORIENTATION/CONSCIOUSNESS: Yes awake, Yes oriented to person, Yes oriented to place and Yes oriented to time Chest: COMMONS NORMALS: normal inspection of the chest and normal palpation of entire chest wall CHEST: Yes Symmetrical chest wall rise Resp: COMMON NORMALS: normal respiratory effort, No retractions, No use of accessory muscles and clear to auscultation bilaterally EFFORT & INSPECTION: Yes symmetric chest movement AUSCULTATION: clear to auscultation bilaterally Cardio: COMMON NORMALS: regular rate, regular rhythm, S1 normal heart sound present, S2 normal heart sound present, No gallops present (Cardio), No clicks present (Cardio), No murmurs present (Cardio) and No rub (Cardio) RATE: r egular rate RHYTHM: regular rhythm HEART SOUNDS: S1 normal heart sound present and S2 normal heart sound present PERIPHERAL PULSES: radial pulses present Extremity: COMMON NORMALS: no pedal edema Neuro: COMMON NORMALS: patient oriented x3 and moves all extremities S ENSORIUM/ORIENTATION: Yes oriented to person, Yes oriented to place and Yes oriented to time Data 07/26/25 11:35 07/27/25 08:59 A&P Assessment and plan 1. Chest pain: 2. Alcohol abuse: 3. Benzodiazepine abuse: 4. Diabetes mellitus: 5. Cigarette smoker: 6. CAD (coronary artery disease): 7. Hypertension: 8. Hypertriglyceridemia: Plan: Stress test did not show ischemia. Will add on propranolol 60mg daily for anxiety and beta blockade. Starting atorvastatin 80mg daily, fenofibrate and icosapent ethyl. He can discharge home today, follow up with Dr Cristina in 6 weeks with plan to recheck lipids then. Also requesting records from hospital in [place], [place]. PDMP PDMP Reviewed: Not Reviewed Coding Level of Care Code Acute Code for Chg Fwd Diagnoses Chest pain R07.9 Alcohol abuse F10.10 Benzodiazepine abuse F13.10 Diabetes mellitus E11.9 Cigarette smoker F17.210 CAD (coronary artery disease) I25.10 Hypertension I10 Hypertriglyceridemia E78.1
[2025-07-27] MEDS: insulin glargine 100 units/1 mL 5 UNIT SUBCUT (12:17)
[2025-07-27] MEDS: insulin regular-human 100 units/1 mL 5 UNIT IVP (12:17)
--- NOTE | 2025-07-27 15:43 | PM.DCS ---
Discharge Providers Date of Admission: 07/26/25 16:25 Date of Discharge: July 27, 2025 Attending Provider at Admission: Oscar Reece MD Attending Provider at Discharge: Oscar Reece MD Diagnoses at Discharge Discharge Diagnosis 1. Coronary artery disease involving quechan coronary artery of quechan heart with unstable angina pectoris: 2. Chest pain: 3. Alcohol abuse: 4. Benzodiazepine abuse: 5. Diabetes mellitus: 6. Cigarette smoker: 7. Primary hypertension: 8. Hypertriglyceridemia: Reason for Visit Reason for Visit: CP sweating numbness Brief History: As per the previous note and the patient: Rudy Crawford is a 45 year old male of hypertension, coronary artery disease status post stenting 2 months ago, diabetes, nicotine dependence/cigarette smoking, past history of alcohol use disorder and currently sober since 7 months came with chest pain that started around 10 AM associated with numbness of his lips and hands with diaphoresis and shortness of breath. The patient also felt dizzy and presyncope. There was no history of any recent leg swellings, orthopnea or PND. No history of fever or chills. The patient reported compliance to his medications Rest of review of system unremarkable Hospital Course Hospital Course During patient hospital stay he was further worked up for any unstable angina. Troponins were not concerningly high. And further lab investigations were significant for hypertriglyceridemia, diabetes. Nuclear stress test was done and consulted cardiology. It was not remarkable for reversible ischemia. EF calculated on stress test was around 55%. Patient informed that he has stenting placed 6 years ago in [place] and later on just 2 months ago at [facility] he had underwent PCI and ballooning. He has been on baby aspirin and prasugrel. He uses 40 mg of atorvastatin along with ezetimibe 10 mg daily. Based on his high triglycerides level he was started on fenofibrate, Vascepa and increased the dose of atorvastatin to 80 mg with further cardiology follow-up at the time of discharge and to follow lipids in 6 weeks. He was also started on propranolol 60 mg daily. He also mentioned he takes metformin 850 mg 2 times daily and to continue. patient wanted to be discharged because of his family commitments. After discussing his all plan of care, adequate referrals were made and medication reconciliation was done after discussing with the patient and based on his clinical condition. He was counseled post discharge for his health, comorbidities, and concerning chronic artery disease management. He was in a hurry and proceeded to go home because of his commitments. But he promised to follow his referrals and to be compliant with medication. I called [facility] pharmacy and made sure the appropriate prescriptions are sent for the patient. Patient condition has been discussed at length with the patient/family, I have independently reviewed the chart labs imaging/diagnostics/EKG. the goals of care and code status with the patient/family/NOK/legal branch service representative, and documented accordingly. The management has been done according to the current clinical condition with respect to patient goals of care and based on recommendations/guidelines. The patient/family has been informed about the current condition and further plan of care. Agreed with the plan of care and understood without any language barrier. Every effort was made to ensure accuracy of learning specialist. Any obvious errors or omissions should be clarified with the author of the document. Physical Exam Narrative: General: Morbidly obese patient, alert and oriented, lying comfortably without any distress HEENT: Normocephalic, atraumatic, grossly unremarkable exam Cardio: normal rate rhythm, normal S1-S2 without any murmurs, rubs, or gallops and JVD normal Respiratory: normal vascular breathing on auscultation without any wheezes, stridor, rhonchi GI: Abdomen soft, nontender, nondistended, normoactive bowel sounds present all 4 quadrants, Neuro: intact cranial nerves motor and sensory and cerebellar/coordination function without any focal neurological deficit Behavior: Appropriate and cooperative Extremities: Adequate palpable pulses, mild trace edema Discharge Data Studies Completed and Pending Completed Studies During Hospitalization Category Date Time Status Cardiac Stress Test MIBI [Sestamibi Stress Test Request Exams 07/27/25 06:39 Completed ] Routine XR chest 1V portable [id number] Stat Exams 07/26/25 11:26 Completed NM [place] perf SPECT r/s* [id number] Routine Nuc Med 07/27/25 06:40 Completed Radiology Impressions Chest X-Ray 07/26/25 11:26 IMPRESSION: 1. Negative chest. Laboratory Results WBC Cancelled 07/27/25 05:59 Corrected WBC Cancelled 07/27/25 05:59 RBC Cancelled 07/27/25 05:59 Hgb Cancelled 07/27/25 05:59 Hct Cancelled 07/27/25 05:59 MCV Cancelled 07/27/25 05:59 MCH Cancelled 07/27/25 05:59 MCHC Cancelled 07/27/25 05:59 RDW Cancelled 07/27/25 05:59 Plt Count Cancelled 07/27/25 05:59 MPV Cancelled 07/27/25 05:59 Gran % Cancelled 07/27/25 05:59 Neut % (Auto) Cancelled 07/27/25 05:59 Lymph % (Auto) Cancelled 07/27/25 05:59 Towner % (Auto) Cancelled 07/27/25 05:59 Eos % (Auto) Cancelled 07/27/25 05:59 Baso % (Auto) Cancelled 07/27/25 05:59 Neut # (Auto) Cancelled 07/27/25 05:59 Lymph # (Auto) Cancelled 07/27/25 05:59 Towner # (Auto) Cancelled 07/27/25 05:59 Eos # (Auto) Cancelled 07/27/25 05:59 Baso # (Auto) Cancelled 07/27/25 05:59 Absolute Gran (auto) Cancelled 07/27/25 05:59 Nucleated RBC % (auto) Cancelled 07/27/25 05:59 Nucleated RBCs # Cancelled 07/27/25 05:59 Specimen Type Arterial 07/26/25 13:00 Sample Site Radial, right 07/26/25 13:00 ABG pH 7.41 (7.35-7.45) 07/26/25 13:00 ABG pCO2 37.3 mmHg (35-45) 07/26/25 13:00 ABG pO2 84.3 mmHg (80.0-100.0) 07/26/25 13:00 ABG PO2/FiO2 Ratio 401 07/26/25 13:00 ABG HCO3 23.8 mmol/L (22-26) 07/26/25 13:00 ABG O2 Saturation 98.0 07/26/25 13:00 ABG Base Excess -0.5 mmol/L (-2.0-2.0) 07/26/25 13:00 Momo Test Pos 07/26/25 13:00 A-a O2 Gradient 2.4 mmHg (5-10) L 07/26/25 13:00 Hematocrit 41.9 % (42-52) L 07/26/25 13:00 Hgb O2 Saturation 92.1 % (95-100) L 07/26/25 13:00 Carboxyhemoglobin 5.8 %THgb (0.4-20.1) 07/26/25 13:00 Methemoglobin 0.3 % (0.4-1.5) L 07/26/25 13:00 Total Hemoglobin 13.7 g/dL (14-18) L 07/26/25 13:00 Sodium 133.0 mmol/L (131-143) 07/26/25 13:00 Potassium 3.6 mmol/L (3.5-5.0) 07/26/25 13:00 Glucose 449.0 mg/dL (70-115) H 07/26/25 13:00 Ionized Calcium 1.2 mmol/L (1.1-1.4) 07/26/25 13:00 O2 Delivery Device Room air 07/26/25 13:00 FiO2 21.0 % 07/26/25 13:00 Ladies Underwear Operator ID Monro 07/26/25 13:00 Sodium 130 mmol/L (136-145) L 07/27/25 08:59 Potassium 4.4 mmol/L (3.5-5.1) 07/27/25 08:59 Chloride 95 mmol/L (98-107) L 07/27/25 08:59 Carbon Dioxide 20 mmol/L (22-29) L 07/27/25 08:59 Anion Gap 19.4 (5-19) H 07/27/25 08:59 BUN 9 mg/dL (6-20) 07/27/25 08:59 Creatinine 0.6 mg/dL (0.7-1.2) L 07/27/25 08:59 GFR Calculation 145.0 mL/min (90-130) H 07/27/25 08:59 Glucose 389 mg/dL (65-115) H 07/27/25 08:59 POC Glucose 243 mg/dL (70-110) H 07/27/25 13:57 Estimat Average Glucose Cancelled 07/27/25 05:59 Hemoglobin A1c Cancelled 07/27/25 05:59 Calculated Osmolality 285 mOsm/kg (285-295) 07/27/25 08:59 Calcium 9.0 mg/dL (8.5-10.5) 07/27/25 08:59 Phosphorus 4.4 mg/dL (2.5-4.5) 07/26/25 11:35 Magnesium 2.1 mg/dL (1.7-2.3) 07/26/25 11:35 Total Bilirubin 0.2 mg/dL (0.15-1.2) 07/27/25 08:59 AST 58 U/L (0-40) H 07/27/25 08:59 ALT 68 U/L (0-41) H 07/27/25 08:59 Alkaline Phosphatase 79 U/L (40-130) 07/27/25 08:59 Troponin T Baseline 7 ng/L (0-15) 07/26/25 11:35 Troponin T 120 Minute 7.31 ng/L (0-15) 07/27/25 00:39 Delta Troponin T 0.07 ABS# (0-10) 07/27/25 00:39 Troponin T Hi Sens 6Hr < 6.0 ng/L (0-15) 07/27/25 05:59 Troponin T Hi Sens 6Hr Delta TNP 07/27/25 05:59 NT-Pro-B Natriuret Pep < 36 pg/mL (0-125) 07/26/25 11:35 Total Protein 6.4 g/dL (6.6-8.7) L 07/27/25 08:59 Albumin 3.8 g/dL (3.5-5.2) 07/27/25 08:59 Globulin 2.6 g/dL (1.3-4.6) 07/27/25 08:59 Triglycerides 1338 mg/dL (0-150) H 07/26/25 11:35 Cholesterol 190 mg/dL (0-200) 07/26/25 11:35 LDL Cholesterol Direct 30 mg/dL (0-100) 07/26/25 11:35 LDL Cholesterol, Calc Not Reportable 07/26/25 11:35 HDL Cholesterol 20 mg/dL (60-100) L 07/26/25 11:35 LDL/HDL Ratio Not Reportable 07/26/25 11:35 Cholesterol/HDL Ratio 9.50 mg/dL (1.0-5.00) H 07/26/25 11:35 Lipase 35 U/L (13-60) 07/27/25 08:59 TSH 1.69 uIU/mL (0.27-4.20) 07/26/25 11:35 Serum Ketones Negative (Negative) 07/26/25 11:35 Vitals Last Vital Signs Temp 97.6 F 07/27/25 12:00 Pulse 82 07/27/25 12:00 Resp 17 07/27/25 12:00 BP 137/89 07/27/25 12:00 Pulse Ox 99 07/27/25 12:00 O2 Del Method Room Air 07/27/25 12:00 Discharge Plan Discharge Patient Disposition: Home Condition: Stable Prescriptions: New gabapentin 400 mg Capsule 400 mg PO TID 60 Days Qty: 180 0RF ezetimibe 10 mg Tablet 10 mg PO DAILY Qty: 60 0RF fenofibrate nanocrystallized 145 mg Tablet 145 mg PO DAILY Qty: 60 0RF pantoprazole 40 mg tablet,delayed release (DR/EC) 40 mg PO DAILY Qty: 60 0RF metformin 850 mg tablet 850 mg PO BID Qty: 60 0RF icosapent ethyl [Vascepa] 1 gram capsule 2 g PO BID Qty: 60 0RF atorvastatin [Lipitor] 80 mg tablet 80 mg PO DAILY 60 Days Qty: 60 0RF Continued Nitrostat 0.4 mg tablet, sublingual 0.4 mg sublingual PRN PRN (Reason: Chest Pain) Qty: 30 1RF propranolol 60 mg capsule,extended release 24 hr 60 mg PO DAILY Qty: 30 1RF prasugrel HCl 10 mg tablet 10 mg PO DAILY alprazolam [Xanax] 1 mg tablet 1 mg PO TID oxycodone 5 mg tablet 5 mg PO Q6H PRN (Reason: Pain) 3 Days Qty: 9 0RF Changed aspirin 325 mg tablet 81 mg PO DAILY 60 Days Qty: 30 0RF Discontinued desvenlafaxine succinate [Pristiq] 100 mg tablet extended release 24 hr 100 mg PO DAILY Nephrologist OK for DC: Cardiology Discharge Order = DC NOW: Discharge Order (Routine); Ordered 07/27/25 Ordered By: Oscar Reece Other Ambulatory Orders: Lipid Panel (Routine) Timeframe: 6 Weeks Facility: [facility] - Location: Lab - Main Lab Ordered By: Oscar Reece Referrals: Ceci Miramontes DO [Physician, Family Practice] Referral Note: DM, HTN, HLD CAD For establishing healthcare maintenance and primary care Dustin Knight MD [[place], Psychiatry] - 2 weeks Referral Note: History of anxiety for further management Santy Cristina MD [Physician, Cardiology] - 6 Weeks Referral Note: History of stenting for further follow-up Discharge Diet: Advance as tolerated and Usual diet Discharge Activity: Resume usual activity, Increase activity as tolerated and Limit activity as instructed Patient Instructions: Opioid Safety, Patient Portal & Josie Instructions Discharge Attestations Time Spent in Discharge Care*: greater than 30 min Specific Discharge Activities: educating patient, educating and/or supporting family/caregiver, discussing with pcp/other providers, discussing with case operator/social workers/dc planners, documenting/other paperwork and evaluating patient/reviewing data Time Spent in Smoking Cessation: 3 to 10 minutes Status at Discharge: Cognitive status at discharge: cognitively intact, Behavioral status at discharge: cooperative, Functional status at discharge: independent ambulation, Overall status at discharge: patient is back to baseline Quality Metrics Clinical Quality Measures [ No reported AMI, CVA or VTE this stay] Coding Level of Care Code 59288 Diagnoses Coronary artery disease involving quechan coronary artery of quechan heart with unstable angina pectoris I25.110 Associated angina: with unstable angina Coronary Disease-Associated Artery/Lesion type: quechan artery [place] vs. transplanted heart: quechan heart Chest pain R07.9 Alcohol abuse F10.10 Benzodiazepine abuse F13.10 Diabetes mellitus E11.9 Cigarette smoker F17.210 Primary hypertension I10 Hypertension type: primary hypertension Hypertriglyceridemia E78.1
== END 2025-07-27 16:21 | disposition home or self-care (01) ==
LOC: ER 12:50 → CSU 23:25
PROVIDERS: Admitting Provider Student in an Organized Health Care Education/Training Program; Emergency Provider Emergency Medicine; Visit Provider Student in an Organized Health Care Education/Training Program
DX: I25.110 Atherosclerotic heart disease of native coronary artery with unstable angina pectoris (principal); F10.10 Alcohol abuse, uncomplicated; F13.10 Sedative, hypnotic or anxiolytic abuse, uncomplicated; E11.9 Type 2 diabetes mellitus without complications; F17.210 Nicotine dependence, cigarettes, uncomplicated; I10 Essential (primary) hypertension; E78.1 Pure hyperglyceridemia; Z79.82 Long term (current) use of aspirin; Z79.891 Long term (current) use of opiate analgesic; Z95.5 Presence of coronary angioplasty implant and graft; K21.9 Gastro-esophageal reflux disease without esophagitis; F41.0 Panic disorder [episodic paroxysmal anxiety]; E78.5 Hyperlipidemia, unspecified; I73.9 Peripheral vascular disease, unspecified
CPT/HCPCS: 36415; 36416; 36600; 71045; 78452; 80051; 80053; 80061; 82009; 82330; 82805; 82962; 83690; 83721; 83735; 83880; 84100; 84443; 84484; 85025; 93005; 96372; 96374; 96375; 99285; A9500; G0378; J1644; J1815; J2270; J2470; J2785; J7030; J9999

== ENCOUNTER 2025-09-12 13:09 | Emergency (ER) | payer MEDICAID, SELFPAY ==
[2025-09-12 13:12] VITALS: BP 146/99; PULSE 98; RESP 16; TEMP 36.7; O2SAT 96; BMI 36.0
--- NOTE | 2025-09-12 13:15 | ECG_ITS ---
[facility] Test Date: 2025-09-12 Pat Name: Rudy Crawford Department: Room: Gender: Male Mechanical Lead: : 1980 Requested By: Jyoti Duran Order Number: [id number] James MD: Darya Clark M.D. Measurements Intervals [place] Rate: 101 P: 7 CA: 148 QRS: 71 QRSD: 120 T: 41 QT: 361 QTc: 468 Interpretive Statements SINUS TACHYCARDIA MODERATE INTRAVENTRICULAR CONDUCTION DELAY [110+ ms QRS DURATION] ABNORMAL RHYTHM ECG Compared to ECG 07/27/2025 05:57:39 Sinus rhythm no longer present First degree AV block no longer present Electronically Signed On 09-12-2025 21:36:41 UNDERCUTTER OPERATOR by Darya Clark M.D. [email or web address]
--- NOTE | 2025-09-12 13:15 | XR_ITS ---
WS: [id number] Portable AP upright chest, 09/12/2025 Clinical Data: chest pain Comparison: Portable chest, 07/26/2025 Findings: No nodules, masses or effusions are seen. The heart is normal. The pulmonary vascularity is not increased. No pneumonia or pneumothorax is seen. XR/XR chest 1V portable [id number] Impression: Negative chest.
--- NOTE | 2025-09-12 13:40 | W.ED.CHESTPA ---
HPI - Chest Pain General: Chief Complaint: Chest Pain Stated Complaint: chest pain Time Seen by Provider: 09/12/25 13:40 History of Present Illness: 45-year-old male presents to the emergency room with complaint of chest pain that began suddenly about 30 minutes prior to arrival. He has a known history of coronary artery disease states that he is a heavy sensation with pain radiating to his left arm some shortness of breath with. Patient has had a history of [place] had stents 2 months ago in [facility]. He was on Plavix evidently was switched to Effient starting yesterday. Associated symptoms: Deny abdominal pain, dyspnea or fever(s) Related Data Home Medications ?Medication ?Instructions ?Recorded ?Confirmed alprazolam 1 mg tablet (Xanax) 1 mg PO TID 07/26/25 07/26/25 prasugrel HCl 10 mg tablet 10 mg PO DAILY 07/26/25 07/26/25 Previous Rx's ?Medication ?Instructions ?Recorded nitroglycerin 0.4 mg sublingual 0.4 mg sublingual PRN PRN Chest 08/29/24 tablet (Nitrostat) Pain #30 tabs aspirin 325 mg tablet 81 mg (0.2492 x 325 mg) PO DAILY 07/27/25 60 days #30 tabs atorvastatin 80 mg tablet (Lipitor) 80 mg PO DAILY 60 days #60 tabs 07/27/25 ezetimibe 10 mg tablet 10 mg PO DAILY #60 tabs 07/27/25 fenofibrate nanocrystallized 145 145 mg PO DAILY #60 tabs 07/27/25 mg tablet gabapentin 400 mg capsule 400 mg PO TID 60 days #180 caps 07/27/25 icosapent ethyl 1 gram capsule 2 g (2 x 1 gram) PO BID #60 caps 07/27/25 (Vascepa) metformin 850 mg tablet 850 mg PO BID #60 tabs 07/27/25 oxycodone 5 mg tablet 5 mg PO Q6H PRN Pain 3 days #9 tabs 07/27/25 pantoprazole 40 mg tablet,delayed 40 mg PO DAILY #60 tabs 07/27/25 release propranolol 60 mg capsule,24 60 mg PO DAILY #30 caps 07/27/25 hr,extended release Allergies Allergy/AdvReac Type Severity Reaction Status Date / Time codeine Allergy ALGY-Hives Verified 09/12/25 13:20 ketorolac (From Toradol) Allergy ALGY-Hives Verified 09/12/25 13:20 trazodone Allergy ALGY-Difficulty Verified 09/12/25 13:20 Swallowing Review of Systems Const: Denies: fever(s) or chills Card: Reports: chest pain Resp: Denies: dyspnea GI: Denies: abdominal pain : Denies: dysuria, urinary frequency or urinary urgency Musc: Denies: neck pain or back pain Skin/Breast: Denies: rash PFSH ED PFSH: Medical History Hypertension Diabetes mellitus Social discord Arteriovenous graft infection Alcohol dependence 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 Prediabetes Erectile dysfunction Chronic pain in left shoulder Had pain present when seen 12/2021 on his first visit and thought he might have a rotator cuff tear then Generalized anxiety disorder with panic attacks Benzodiazepine abuse Dental caries associated with enamel hypomineralization Cigarette smoker Claudication in peripheral vascular disease Since 2017 with walking 100 yards or less Chronic low back pain Torn rotator cuff Depression Surgical History History of coronary angioplasty with insertion of stent History of skin graft Split thickness skin graft of left lower extremity?03/01/2024 Family History Other CAD (coronary artery disease) Social History Smoking and tobacco/nicotine status: current every day tobacco/nicotine user cigarettes Packs smoked per day: 2 Alcohol intake: current Alcohol intake frequency: few times a week Substance/Drug Use: never Marital status: Single Number of children: 0 Current occupational status: employed Physical Exam Const: ORIENTATION/CONSCIOUSNESS: Yes awake, Yes oriented to person, Yes oriented to place and Yes oriented to time HENMT: COMMON NORMALS: normocephalic, atraumatic and hearing grossly normal bilaterally HEAD & SCALP: normocephalic and atraumatic Resp: COMMON NORMALS: normal respiratory effort, No retractions, No use of accessory muscles and clear to auscultation bilaterally AUSCULTATION: clear to auscultation bilaterally Cardio: COMMON NORMALS: regular rate, regular rhythm and No murmurs present (Cardio) RATE: regular rate RHYTHM: regular rhythm GI: COMMON NORMALS: Soft to palpation and No hepatosplenomegaly present AUSCULTATION: Yes normoactive bowel sounds PALPATION: Yes Soft to palpation, No Tenderness to palpation present (GI), No Guarding due to palpation present (GI) and Yes No hepatosplenomegaly present Extremity: COMMON NORMALS: normal to inspection, capillary refill normal, no clubbing, cyanosis or edema, no calf tenderness and no pedal edema Neuro: SENSORIUM/ORIENTATION: Yes oriented to person, Yes oriented to place and Yes oriented to time Skin: COMMON NORMALS: no rashes or lesions noted GENERAL SKIN EXAM: no rashes or lesions noted Course Vital Signs: Vital signs: Vital Signs Temperature 98.1 F 09/12/25 13:12 Pulse Rate 92 09/12/25 14:06 Respiratory Rate 20 H 09/12/25 13:51 Blood Pressure 141/98 09/12/25 14:06 Pulse Oximetry 98 09/12/25 13:51 Oxygen Delivery Me thod Room Air 09/12/25 13:12 MDM - Chest Pain Medical Decision Making Medical decision making Social determinants: None I reviewed the patient's medical record. I reviewed the patient's current home meds. Alternate historians: None Differential diagnosis: Atypical chest pain acute coronary syndrome GI related chest pain pneumonia Lab Review: CBC CMP unremarkable cardiac enzymes did not show positive delta. Glucose was elevated at 221. AST and ALT mildly elevated Imaging: Chest x-ray unremarkable Assessment of risk Level of risk: Moderate Hospitalization considerations: Pending completion of workup may need hospitalization if has elevated troponin. Reexamination: Stable chest pain has nearly resolved Assessment and plan: Patient is not having significant chest pain at this time EKG does not show any acute changes. Cardiac enzymes did not show significant positive delta. Both his initial and his follow-up are below detectable levels. Patient is not hypoxic or tachypneic no signs of acute pulmonary embolism. Will discharge patient home have him follow-up short-term with cardiology he needs to follow-up with primary care as well as increase his pantoprazole to 1 pill twice a day and follow-up or return if he has further problems. Lab Data 09/12/25 13:37 09/12/25 13:37 Radiology Impressions Chest X-Ray 09/12/25 13:15 Impression: Negative chest. Laboratory Results WBC 6.70 10^3/uL (3.29-11.43) 09/12/25 13:37 RBC 4.96 10^6/uL (3.85-5.65) 09/12/25 13:37 Hgb 14.30 g/dL (11.27-16.99) 09/12/25 13:37 Hct 45.2 % (37-53) 09/12/25 13:37 MCV 91.1 fl (82-101) 09/12/25 13:37 MCH 28.8 pg (27-33) 09/12/25 13:37 MCHC 31.6 g/dL (30-55) 09/12/25 13:37 RDW 13.2 % (12.1-15.1) 09/12/25 13:37 Plt Count 232 10^3/cmm (157-399) 09/12/25 13:37 MPV 8.3 fL (7.4-10.4) 09/12/25 13:37 Neut % (Auto) 50.0 % 09/12/25 13:37 Lymph % (Auto) 35.7 % 09/12/25 13:37 [place] % (Auto) 9.7 % 09/12/25 13:37 Eos % (Auto) 2.8 % 09/12/25 13:37 Baso % (Auto) 1.2 % 09/12/25 13:37 Neut # (Auto) 3.35 10^3/uL (1.8-7.7) 09/12/25 13:37 Lymph # (Auto) 2.4 10^3/uL (0.8-4.8) 09/12/25 13:37 [place] # (Auto) 0.7 10^3/uL (0.2-0.9) 09/12/25 13:37 Eos # (Auto) 0.2 10^3/uL (0.0-0.8) 09/12/25 13:37 Baso # (Auto) 0.1 10^3/uL (0.0-0.1) 09/12/25 13:37 Nucleated RBC % (auto) 0 % 09/12/25 13:37 Nucleated RBCs # 0.0 /100WBC 09/12/25 13:37 PT 12.80 SECONDS (12.1-14.9) 09/12/25 13:37 INR 0.90 (0.8-1.2) 09/12/25 13:37 Sodium 135 mmol/L (136-145) L 09/12/25 13:37 Potassium 4.3 mmol/L (3.5-5.1) 09/12/25 13:37 Chloride 99 mmol/L (98-107) 09/12/25 13:37 Carbon Dioxide 22 mmol/L (22-29) 09/12/25 13:37 Anion Gap 18.3 (5-19) 09/12/25 13:37 BUN 13 mg/dL (6-20) 09/12/25 13:37 Creatinine 0.7 mg/dL (0.7-1.2) 09/12/25 13:37 GFR Calculation 121.4 mL/min (90-130) 09/12/25 13:37 Glucose 221 mg/dL (65-115) H 09/12/25 13:37 Calculated Osmolality 287 mOsm/kg (285-295) 09/12/25 13:37 Calcium 9.6 mg/dL (8.5-10.5) 09/12/25 13:37 Total Bilirubin 0.4 mg/dL (0.15-1.2) 09/12/25 13:37 AST 52 U/L (0-40) H 09/12/25 13:37 ALT 63 U/L (0-41) H 09/12/25 13:37 Alkaline Phosphatase 71 U/L (40-130) 09/12/25 13:37 Troponin T Baseline < 6 ng/L (0-15) 09/12/25 13:37 Troponin T 60 Minute < 6.0 ng/L (0-15) 09/12/25 14:31 Delta Troponin T 0 ABS# (0-10) 09/12/25 14:31 Total Protein 6.8 g/dL (6.6-8.7) 09/12/25 13:37 Albumin 4.5 g/dL (3.5-5.2) 09/12/25 13:37 Globulin 2.3 g/dL (1.3-4.6) 09/12/25 13:37 Lipase 30 U/L (13-60) 09/12/25 13:37 Ethyl Alcohol < 10 mg/dL (0-10) 09/12/25 13:37 All radiology interpretation(s) finalized by discharge EKG Data EKG 1: I personally reviewed and interpreted this EKG as follows: Interpretation: EKG 09/12/2025 1314 sinus tachycardia rate 101, VA interval 148 QTc interval 468. No acute ST elevation compared to EKG from 07/27/2025 EKG previously showed first degree block is no longer present EKG 2: I personally reviewed and interpreted this EKG as follows: Interpretation: EKG 09/12/2025 1437 sinus rhythm rate of 84 VA interval 186 QTc [address] elevation compared to EKG done earlier today no significant change Discharge Plan Discharge Patient Disposition: Home Clinical Impression: Atypical chest pain, Diabetes mellitus Hypertension Qualifiers: Hypertension type: primary hypertension Qualified Code(s): I10 - Essential (primary) hypertension CAD (coronary artery disease) Qualifiers: Coronary Disease-Associated Artery/Lesion type: [place] artery [place] vs. transplanted heart: [place] heart Associated angina: with unstable angina Qualified Code(s): I25.110 - Atherosclerotic heart disease of [place] coronary artery with unstable angina pectoris Condition: Stable Prescriptions: No Action Nitrostat 0.4 mg tablet, sublingual 0.4 mg sublingual PRN PRN (Reason: Chest Pain) Qty: 30 1RF propranolol 60 mg capsule,extended release 24 hr 60 mg PO DAILY Qty: 30 1RF prasugrel HCl 10 mg tablet 10 mg PO DAILY alprazolam [Xanax] 1 mg tablet 1 mg PO TID gabapentin 400 mg Capsule 400 mg PO TID 60 Days Qty: 180 0RF ezetimibe 10 mg Tablet 10 mg PO DAILY Qty: 60 0RF fenofibrate nanocrystallized 145 mg Tablet 145 mg PO DAILY Qty: 60 0RF pantoprazole 40 mg tablet,delayed release (DR/EC) 40 mg PO DAILY Qty: 60 0RF oxycodone 5 mg tablet 5 mg PO Q6H PRN (Reason: Pain) 3 Days Qty: 9 0RF aspirin 325 mg tablet 81 mg PO DAILY 60 Days Qty: 30 0RF metformin 850 mg tablet 850 mg PO BID Qty: 60 0RF icosapent ethyl [Vascepa] 1 gram capsule 2 g PO BID Qty: 60 0RF atorvastatin [Lipitor] 80 mg tablet 80 mg PO DAILY 60 Days Qty: 60 0RF Discharge Orders: Discharge ED (Routine); Ordered 09/12/25 Ordered By: Anil Senior Discharge Diet: Usual diet Discharge Activity: Increase activity as tolerated Patient Instructions: Chest Pain (ED), Opioid Safety, Pain Management, Patient Portal & Josie Instructions Activity Restrictions/Additional Instructions: Thank you for choosing [facility] for your healthcare needs today. It is very important that you follow up as instructed or that you return to the Emergency Department should you have concerns or if your condition changes or worsens in any way. Emergency department visits are focused on emergent conditions, in some cases you may require further evaluation on an outpatient basis. You were seen in the emergency room with complaints of chest discomfort. Your EKG and chest cardiac enzymes were normal. We reviewed your previous stress testing in late June of this year that also did not show any vianca-infarct ischemia. Will discharge you home for today. Continue pain medication prescription prescribed for your back previously. 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 (Please note that included in your discharge packet is information concerning opioid safety and pain management. 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
[2025-09-12 13:43] LABS: Hematocrit 45.2 % (37-53); Hemoglobin 14.30 g/dL (11.27-16.99); Mean Corpuscular HGB Conc 31.6 g/dL (30-55); Mean Corpuscular Hemoglobin 28.8 pg (27-33); Mean Corpuscular Volume 91.1 fl (82-101); Nucleated Red Blood Cells % 0 %; Platelet Count 232 10^3/cmm (157-399); Red Blood Count 4.96 10^6/uL (3.85-5.65); White Blood Count 6.70 10^3/uL (3.29-11.43)
[2025-09-12 13:51] VITALS: BP 140/81; PULSE 93; RESP 20; O2SAT 98
[2025-09-12 13:55] LABS: INR 0.90 (0.8-1.2); Prothrombin Time 12.80 SECONDS (12.1-14.9)
[2025-09-12 14:00] LABS: Troponin(5th) Baseline < 6 ng/L (0-15)
[2025-09-12 14:06] VITALS: BP 141/98; PULSE 92
[2025-09-12] MEDS: nitroglycerin 1 gm/inch oint Pkt 0.5 INCH TOPICAL (14:06)
[2025-09-12 14:08] LABS: Alanine Aminotransferase 63 U/L (0-41); Albumin Level 4.5 g/dL (3.5-5.2); Alkaline Phosphatase 71 U/L (40-130); Anion Gap 18.3 (5-19); Aspartate Amino Transferase 52 U/L (0-40); Blood Urea Nitrogen 13 mg/dL (6-20); Calcium 9.6 mg/dL (8.5-10.5); Carbon Dioxide 22 mmol/L (22-29); Chloride 99 mmol/L (98-107); Creatinine Clr Calc Pharmacy 151.7996; Globulin 2.3 g/dL (1.3-4.6); Glucose 221 mg/dL (65-115); Lipase 30 U/L (13-60); Osmolality Calculated 287 mOsm/kg (285-295); Potassium 4.3 mmol/L (3.5-5.1); Sodium 135 mmol/L (136-145); Total Protein 6.8 g/dL (6.6-8.7)
[2025-09-12 14:10] LABS: Alcohol Level < 10 mg/dL (0-10)
--- NOTE | 2025-09-12 14:37 | ECG_ITS ---
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 Measurements Intervals [place] Rate: 84 P: 16 VT: 186 QRS: 40 QRSD: 124 T: 56 QT: 384 QTc: 455 Interpretive Statements SINUS RHYTHM MODERATE INTRAVENTRICULAR CONDUCTION DELAY [110+ ms QRS DURATION] NONSPECIFIC T-WAVE ABNORMALITY Compared to ECG 09/12/2025 13:14:12 T-wave abnormality now present Sinus tachycardia no longer present Electronically Signed On 09-12-2025 21:42:45 GREEN INSPECTOR by Darya Clark M.D. [email or web address]
[2025-09-12 16:17] VITALS: BP 126/63; PULSE 86; O2SAT 92
== END 2025-09-12 16:18 | disposition home or self-care (01) ==
PROVIDERS: Physician Assistant; Emergency Provider Family Medicine
DX: R07.89 Other chest pain (principal); E11.9 Type 2 diabetes mellitus without complications; I25.110 Atherosclerotic heart disease of native coronary artery with unstable angina pectoris; I10 Essential (primary) hypertension; Z79.82 Long term (current) use of aspirin; Z79.84 Long term (current) use of oral hypoglycemic drugs; F17.210 Nicotine dependence, cigarettes, uncomplicated
CPT/HCPCS: 36415; 71045; 80053; 80307; 83690; 84484; 85025; 85610; 93005; 99285; J9999